=== PATIENT | female | born 1955 | race Caucasian/White ===

== ENCOUNTER 2018-01-02 00:31 | Outpatient (CLI) | payer MEDICARE, OTHER, SELFPAY ==
--- NOTE | 2018-01-02 09:10 | DI.COMBO_ITS ---
SYMPTOMS/DIAGNOSIS: F/U ABNORMAL MAMMO DIAGNOSTIC BILATERAL MAMMOGRAM AND RIGHT BREAST ULTRASOUND: Mammograms were interpreted according to the usual protocol including computer analysis with CAD system, tomosynthesis and C view imaging. Additional images are interpreted according to the usual protocol including tomosynthesis and 2D imaging. Comparison is made with mammograms from 2012 and 2017. The patient did not return for the six-month follow-up exam recommended on last year's study. Spot compression CC view of the subareolar region of the right breast and MLO spot compression view of the left breast were performed. No abnormality or change is seen in the left breast. No suspicious masses or suspicious calcifications are identified. In the right breast, there is again some prominent nodular tissue in the subareolar region seen on the CC view. Right breast ultrasound shows dense tissue in this area. No cyst or mass is identified. IMPRESSION: Category 1, negative mammogram and right breast ultrasound. Yearly screening mammography is recommended. SA ASSESSMENT OF FINDINGS: Negative. Category 1. Patient will receive a letter notifying them of these results. Bi-RADS category C. The breasts are heterogeneously dense, which may obscure small masses.
== END 2018-01-02 00:51 ==
PROVIDERS: PCP Physician Assistant Medical; Visit Provider Physician Assistant Medical
DX: Z12.31 Encounter for screening mammogram for malignant neoplasm of breast (principal); R92.8 Other abnormal and inconclusive findings on diagnostic imaging of breast; N60.81 Other benign mammary dysplasias of right breast
CPT/HCPCS: 76642; 77062; 77066; G0279

== ENCOUNTER 2018-03-15 01:42 | Outpatient (CLI) | payer MEDICARE, OTHER, SELFPAY ==
--- NOTE | 2018-03-15 14:01 | DI.RAD_ITS ---
SYMPTOMS/DIAGNOSIS: PRIMARY OSTEOARTHRITIS, BOTH KNEES, M17.0; LOW BACK AND HIP PAIN, M54.5 LEFT KNEE: A single AP standing view of the left knee was obtained. This is an incomplete series. There is mild narrowing and periarticular spurring in the medial femorotibial joint space, suggestive of osteoarthritis. No gross alignment abnormalities or soft tissue abnormalities are identified. IMPRESSION: Mild degenerative changes of the left knee. RIGHT KNEE: A single standing AP view of the right knee was requested and performed. There is moderately severe narrowing in the medial femorotibial joint space. Moderate-sized spurs are seen arising from the medial femorotibial joint space. The lateral joint space appears well maintained. There is normal alignment on the single AP view. The soft tissues are grossly unremarkable. IMPRESSION: Moderate degenerative changes of the right knee. LUMBAR SPINE: AP, lateral and bilateral oblique views of the lumbar spine. There are five lumbar-type vertebral bodies. There is a left convex curvature of the lumbar spine. No spondylolysis or spondylolisthesis is seen. There is mild narrowing of the L2-3, L3-4 and L4-L5 disc spaces. There are endplate osteophytes present throughout the lumbar spine. There are degenerative changes of the facets at multiple levels of the lumbar spine. No acute fracture or subluxations are present. IMPRESSION: Moderate degenerative changes seen in the lumbar spine. BILATERAL HIPS: In the left hip, the joint space is fairly well maintained with minimal subchondral sclerosis and acetabular spurring. The right hip shows mild joint space narrowing and periarticular spurring at the acetabulum. The sacroiliac joints and symphysis pubis are intact. The bones are normally mineralized. The soft tissues are unremarkable. IMPRESSION: Mild degenerative changes of the hips bilaterally.
== END 2018-03-15 02:02 ==
PROVIDERS: PCP Physician Assistant Medical; Visit Provider Internal Medicine Rheumatology
DX: M17.0 Bilateral primary osteoarthritis of knee (principal); M54.5 Low back pain; M51.36 Other intervertebral disc degeneration, lumbar region; M25.551 Pain in right hip; M25.552 Pain in left hip; M16.0 Bilateral primary osteoarthritis of hip
CPT/HCPCS: 73521; 72110; 73560

== ENCOUNTER 2018-04-06 06:11 | Day surgery (SDC) | payer MEDICARE, OTHER, SELFPAY ==
--- NOTE | 2018-04-05 18:23 | W.PIPPEYE ---
History of Present Illness Chief Complaint: Progressive decreased vision, right eye Narrative: The patient is a 62-year old lady with history of progressive decreased vision in both eyes at both distance and near. She feels like she is looking through a fog. She notes significant difficulty with glare from bright sunlight and headlights at night. On examination she was noted to have moderate bilateral cortical cataracts, right eye worse than left with visual acuity of 20/70 in the right eye. The option of cataract surgery was offered to the patient and she wished to proceed. NOTE: The Chief Complaint, HPI, Past Medical History, Past Surgical History, Family History, Social History, Medications, and complete Ophthalmic Exam with detailed Assessment and Plan have already been documented in the patient's outpatient ophthalmic record and are not covered again in detail here. [facility] Medical History Cortical cataract of right eye (Acute) Social History Smoking/Tobacco Use Status: Never Meds Home Medications Medication Instructions Recorded Confirmed Type azelastine 1 spray INTRANASAL DAILY 04/03/18 04/03/18 History gabapentin 600 mg PO QID 04/03/18 04/03/18 History hydrocodone-acetaminophen 1 tab PO Q6H 04/03/18 04/03/18 History lisinopril 5 mg PO DAILY 04/03/18 04/03/18 History meloxicam 15 mg PO DAILY 04/03/18 04/03/18 History Allergies Allergy/AdvReac Type Severity Reaction Status Date / Time Fish Containing Products AdvReac Severe vomiting Verified 04/03/18 14:03 Pork/Porcine Containing AdvReac Severe vomiting Verified 04/03/18 14:03 Products Exam OCULAR EXAM:: Most recent ocular examination reveals corrected visual acuity of 20/70 OD, 20/25 OS. Intraocular pressure is 15 OD, 16 OS. Extraocular motility is normal. Pupils equal, round, and reactive without afferent pupillary defect slit-lamp examination shows pupils dilating to 7 mm OU. 3+ inferior cortical cataract OD, 2+ inferior cortical cataract OS. Funduscopic examination shows disc cupping of 0.3 OU with good color. The optic nerves have good perfusion and normal color. The retinal vasculature is normal without significant tortuosity or abnormality. The maculas are normal in appearance with normal contour and foveal reflex appropriate for age. The peripheral retina and vitreous are normal. BRIGHTNESS ACUITY TESTING (BAT):: Brightness acuity testing off is 20/70. Low is 20/80. Medium is 20/100. High is 20/200. Assessment and Plan (1) Cortical cataract of right eye: Current visit: No Status: Acute Assessment: Visually significant cataract, right eye. Plan: Cataract extraction with intraocular lens implantation, right eye Note: NOTE:: The details of the planned surgery, including the risks, indications,limitations,expectations,outcome and possible complications were explained to the patient. The patient understands the complications including, but not limited to: infection, hemorrhage, posterior dislocation of the lens or nuclear fragments which may require the intervention of a vitreoretinal surgeon, possible loss of the eye, or from anesthetic complications. The patient has been made aware of the option of not having surgery, that vision following surgery may not be equal to that prior to surgery, and that the planned surgery may not achieve the intended results. Following this discussion, which the patient appeared to understand, the patient wishes to proceed with cataract surgery with lens implantation of the affected eye to improve and maximize vision.
--- NOTE | 2018-04-05 18:30 | PDOC.DSDIS_ITS ---
Discharge Plan Discharge Details Attending Provider: Tej De Guzman Primary Care Provider: Manan Arzate V Home Meds and New Rx's Prescriptions: No Action gabapentin 600 mg Tablet 600 mg PO QID RF: 0 meloxicam 15 mg Tablet 15 mg PO DAILY RF: 0 hydrocodone-acetaminophen 10-325 mg Tablet 1 tab PO Q6H RF: 0 lisinopril 5 mg Tablet 5 mg PO DAILY RF: 0 azelastine 137 mcg (0.1 %) Aerosol,[place] 1 spray INTRANASAL DAILY RF: 0 Discharge Instructions Stand Alone Forms: Post-op Topical Cataract, [place] (DSU)
--- NOTE | 2018-04-05 18:31 | ROE_ITS ---
Date of service: 04/06/18 Time of Service: 08:09 Operative Note PRE-OP DIAGNOSIS: Cataract, right eye, with poor red reflex PROCEDURE: Cataract extraction using phacoemulsification with intraocular lens implantation, right eye, using capsular staining with Vision Blue SURGEON: Tej De Guzman ANESTHESIA: MAC (with local sub-tenon's anesthetic injection) PATHOLOGY: none sent COMPLICATIONS: None Patient was transported to: same day Patient's condition: stable Implants: Óscar and Óscar / [employer] Tecnis [id number] Indications: Progressive visual loss due to cataract, right eye Procedure Description: CATARACT SURGERY OPERATIVE REPORT PREOPERATIVE DIAGNOSIS: 1. Dense cortical cataract, right eye 2. Poor red reflex secondary to #1 POSTOPERATIVE DIAGNOSIS: Same OPERATION: 1. Cataract extraction using phacoemulsification with posterior chamber intraocular lens implant, right eye. 2. Capsular staining with Vision Blue IOL: IOL Real Estate Utilization Officer/Model: Óscar & Óscar / DANNIE Tecnis [id number] IOL Power: + 18.50 diopters IOL Serial Number: [id number] Optic Diameter: 6.0mm Haptic/Overall Diameter: 13.0mm PHACO INFO: [employer] Vision System with OZil and Active Fluidics Cumulative Dispersed Energy (CDE): 6.41 seconds SURGEON: Tej De Guzman MD, NIKITA ANESTHESIA: Monitored Anesthesia Care (MAC), with local sub-tenon's anesthetic infiltration COMPLICATIONS: None SPECIMENS: None INDICATIONS FOR PROCEDURE: The patient is a 62-year-old lady who presented with complaints of progressive decreased vision in her right eye. She was noted to have a significant cortical cataract in the right eye with visual acuity of 20/70. The option of cataract surgery was offered to the patient and she wished to proceed. PROCEDURE: The correct surgical eye was identified and marked as the right eye and the pupil was dilated in the preoperative area using mydriatics, cycloplegics, and NSAIDS (except in aspirin allergic patients). The dilated pupil size was 7.5 mm. Oral sedation was administered in the form of an Imprimis MKO Melt (midazolam 3mg/ketamine 25mg/ondansetron 2mg). The patient was brought to the operating room where cardiopulmonary monitoring was instituted and surgical time-out was performed, confirming the correct operative eye and IOL power. Topical anesthesia was administered and ophthalmic povidone-iodine 5% was instilled into the conjunctival fornices. Lidocaine gel was applied to the cornea and the fabian-ocular area was prepped with Betadine 10% solution and kathy ped in the usual sterile fashion for intraocular surgery, including an aperture drape. A Tegaderm transparent film dressing was cut in half and used to cover the lashes and lid margins. Care was taken to sequester the lashes and lid margins under the Tegaderm dressing. A lid speculum was placed between the lids of the operative eye and the Tena-Dorothy operating microscope was maneuvered into position. Loco scissors were then used to make a conjunctival buttonhole approximately 6mm posterior to the limbus in the inferonasal quadrant. Blunt dissection was carried out to expose bare sclera, and a blunt-tipped sub-tenon?s anesthesia cannula was introduced and passed posteriorly along the globe where non- preserved plain lidocaine was injected into posterior sub-Tenon?s space. A sideport knife was used to make a paracentesis port at the 7:00 position. Air was injected into the anterior chamber, followed by Vision Blue, which was painted over the anterior capsule and then irrigated out with BSS. The anterior chamber was filled with Healon GV. A 2.4mm keratome knife was used to create a half-thickness groove at the limbus and then to construct a three-plane near- clear corneal tunnel extending 2.0mm into clear cornea at the 10:00 position. A flap was raised on the anterior capsule and capsulorhexis forceps were used to complete a continuous curvilinear capsulorhexis of 5.5 mm. Balanced salt solution was then used to perform cortical cleaving hydrodissection and nuclear hydrodelineation until the lens could be freely rotated within the capsular bag. The lens nucleus was then disassembled and removed within the capsular bag and iris plane using phacoemulsification. Residual cortical material was removed using the 45-degree angled silicone I/A tip with 0.3mm port. The posterior capsule was carefully polished to remove as much residual lens epithelial cells as safely possible. The capsular bag was then inflated and the anterior chamber deepened with viscoelastic. The lens implant described above was inserted into the capsular bag using the DANNIE [place] Injector. A Kuglen hook was used to dial the IOL into position. Residual viscoelastic was then removed first from posterior to the IOL, then from the anterior chamber using the I/A handpiece. The lens implant was noted to center nicely within the capsular bag. The incisions were stromally hydrated, and the anterior chamber was reformed using BSS. Then 0.4cc of moxifloxacin 1.5mg/ml were injected into the capsular bag and anterior chamber. The incisions were checked with a Weck spear and found to be secure. Several drops of ophthalmic povidone-iodine 5% were then applied to the eye followed by two drops of Imprimis combination moxifloxacin/dexamethasone solution. The drapes were removed and a clear plastic protective eye shield was placed over the eye. The patient was then returned to Same Day Surgery in stable condition.
[2018-04-06 06:41] VITALS: BP 144/87; PULSE 109; RESP 20; TEMP 36.6; O2SAT 99
[2018-04-06] MEDS: Tetracaine 0.5% 4 ML BTL OD ×4 (06:46→07:33)
[2018-04-06] MEDS: Tropicam./Phenyleph. (1/2.5%) 5 ML BTL OD ×3 (06:47→06:52)
[2018-04-06] MEDS: Lidocaine 2% Jelly 6 ML SYR (07:35)
[2018-04-06] MEDS: Balanced Salt Soln.-PLUS 500 ML BAG (07:47)
[2018-04-06] MEDS: Trypan Blue 0.06% 0.5 ML SYR (07:49)
[2018-04-06] MEDS: Lidocaine 1% Pres-Free 5 ML VIAL (07:58)
[2018-04-06] MEDS: Povidone-Iodine Ophth 30 ML BTL (08:01)
[2018-04-06 08:37] VITALS: BP 125/78; PULSE 96; RESP 18; O2SAT 98
== END 2018-04-06 08:45 | disposition home or self-care (01) ==
PROVIDERS: PCP Physician Assistant Medical; Visit Provider Ophthalmology
PROC: (CPT 66982; principal; 2018-04-06 07:30)
DX: H25.011 Cortical age-related cataract, right eye (principal); H35.89 Other specified retinal disorders; I10 Essential (primary) hypertension
CPT/HCPCS: 66982; V2632

== ENCOUNTER 2018-04-20 07:52 | Day surgery (SDC) | payer MEDICARE, OTHER, SELFPAY ==
--- NOTE | 2018-04-19 15:04 | POEE_ITS ---
History of Present Illness Chief Complaint: Progressive decreased vision, left eye Narrative: Patient is a 62-year-old lady with history of progressive decreased vision in both eyes at both distance and near. She had a significant difficulty with glare from bright headlights and felt like she was looking through a fog. She was noted to have significant bilateral nuclear cataracts, right eye worse than left. She underwent cataract surgery in the right eye on 04/06/2018. Postoperatively she has regained uncorrected vision of 20/40 in the right eye, correctable to 20/30. She now presents for cataract surgery in the left eye. NOTE: The Chief Complaint, HPI, Past Medical History, Past Surgical History, Fa kina History, Social History, Medications, and complete Ophthalmic Exam with detailed Assessment and Plan have already been documented in the patient's outpatient ophthalmic record and are not covered again in detail here. [facility] Medical History Cortical cataract of left eye (Acute) Cortical cataract of right eye (Resolved) Surgical History Status post cataract extraction and insertion of intraocular lens of right eye (Chronic 04/06/18) Social History Smoking and Tabacco status: Never Meds Home Medications Medication Instructions Recorded Confirmed Type azelastine 1 spray INTRANASAL DAILY 04/03/18 04/03/18 History gabapentin 600 mg PO QID 04/03/18 04/06/18 History hydrocodone-acetaminophen 1 tab PO Q6H 04/03/18 04/06/18 History lisinopril 5 mg PO DAILY 04/03/18 04/06/18 History meloxicam 15 mg PO DAILY 04/03/18 04/06/18 History Allergies Allergy/AdvReac Type Severity Reaction Status Date / Time Fish Containing Products AdvReac Severe vomiting Verified 04/06/18 06:38 Pork/Porcine Containing AdvReac Severe vomiting Verified 04/06/18 06:38 Products Exam OCULAR EXAM:: Most recent ocular examination reveals best corrected vision of 20/30 OD, 20/25 OS. Intraocular pressure is 15 OD, 16 OS. Extraocular motility is normal. Normal pupils. Slit-lamp examination is significant for pupils dilating to 7 mm OU. Well-positioned PCIOL OD with clear posterior capsule. 2+ inferior cortical cataract, left eye. Dilated funduscopic examination is significant for disc cupping of 0.3 OU with normal vessels, macula, peripheral retina and vitreous. BRIGHTNESS ACUITY TESTING (BAT):: Brightness acuity testing of the left eye off is 20/25. Low is 20/30. Medium is 20/50. Height is 20/60. Assessment and Plan (1) Cortical cataract of left eye: Current visit: No Status: Acute Assessment: Visually significant cataract, left eye. Plan: Cataract extraction with intraocular lens implantation, left eye Note: NOTE:: The details of the planned surgery, including the risks, indicati ons,limitations,expectations,outcome and possible complications were explained to the patient. The patient understands the complications including, but not limited to: infection, hemorrhage, posterior dislocation of the lens or nuclear fragments which may require the intervention of a vitreoretinal surgeon, possible loss of the eye, or from anesthetic complications. The patient has been made aware of the option of not having surgery, that vision following surgery may not be equal to that prior to surgery, and that the planned surgery may not achieve the intended results. Following this discussion, which the patient appeared to understand, the patient wishes to proceed with cataract surgery with lens implantation of the affected eye to improve and maximize vision.
--- NOTE | 2018-04-19 15:46 | W.PM.DSUDISC ---
Discharge Plan Discharge Details Attending Provider: eTj De Guzman Primary Care Provider: Manan Arzate V Home Meds and New Rx's Prescriptions: No Action gabapentin 600 mg Tablet 600 mg PO QID RF: 0 meloxicam 15 mg Tablet 15 mg PO DAILY RF: 0 hydrocodone-acetaminophen 10-325 mg Tablet 1 tab PO Q6H RF: 0 lisinopril 5 mg Tablet 5 mg PO DAILY RF: 0 azelastine 137 mcg (0.1 %) Aerosol,[place] 1 spray INTRANASAL DAILY RF: 0 Discharge Instructions Stand Alone Forms: Post-op Topical Cataract, [place] (DSU) DS: Diagnosis Discharge Diagnosis (1) Status post cataract extraction and insertion of intraocular lens of left eye: Status: Resolved
--- NOTE | 2018-04-19 15:47 | ROE_ITS ---
Date of service: 04/20/18 Time of Service: 10:29 Operative Note PRE-OP DIAGNOSIS: Cataract, left eye POST-OP DIAGNOSIS: same PROCEDURE: Cataract extraction using phacoemulsification with intraocular lens implant, left eye SURGEON: Tej De Guzman ANESTHESIA: MAC and local (sub-tenon's anesthetic infiltration) PATHOLOGY: none sent COMPLICATIONS: None Patient was transported to: same day Patient's condition: stable Implants: Óscar and Óscar Vision / [employer] Tecnis [id number] Indications: Progressive decreased vision due to cataract, left eye Procedure Description: CATARACT SURGERY OPERATIVE REPORT PREOPERATIVE DIAGNOSIS: [] POSTOPERATIVE DIAGNOSIS: Same OPERATION: Cataract extraction using phacoemulsification with posterior chamber intraocular lens implant, left eye. IOL: IOL Store Gift Wrap Associate/Model: [employer] Vision / DANNIE Tecnis [id number] IOL Power: +[] diopters IOL Serial Number: [] Optic Diameter: 6.0mm Haptic/Overall Diameter: 13.0mm PHACO INFO: [employer] Vision System with OZil and Active Fluidics Cumulative Dispersed Energy (CDE): [] seconds SURGEON: Tej De Guzman MD, NIKITA ANESTHESIA: Monitored Anesthesia Care (MAC), with local sub-tenon's anesthetic infiltration COMPLICATIONS: None SPECIMENS: None INDICATIONS FOR PROCEDURE: The patient is a 62-year-old lady with history of symptomatic cortical cataracts in both eyes. She has already undergone cataract surgery in her right eye and is doing well postoperatively. She now presents for cataract surgery in her left eye. PROCEDURE: The correct surgical eye was identified and marked as the left eye and the pupil was dilated in the preoperative area using mydriatics and cycloplegics. The dilated pupil size was [] mm. Oral sedation was administered in the form of an Imprimis MKO Melt (midazolam 3mg/ketamine 25mg/ondansetron 2mg). The patient was brought to the operating room where cardiopulmonary monitoring was instituted and surgical time-out was performed, confirming the correct operative eye and IOL power. Topical anesthesia was administered and ophthalmic povidone-iodine 5% was instilled into the conjunctival fornices. Lidocaine gel was applied to the cornea and the fabian-ocular area was prepped with Betadine 10% solution and draped in the usual sterile fashion for intraocular surgery, including an aperture drape. A Tegaderm transparent film dressing was cut in half and used to cover the lashes and lid margins. Care was taken to sequester the lashes and lid margins under the Tegaderm dressing. A lid speculum was placed between the lids of the operative eye and the Tena-Dorothy operating microscope was maneuvered into position. Loco scissors were then used to make a conjunctival buttonhole approximately 6mm posterior to the limbus in the inferonasal quadrant. Blunt dissection was carried out to expose bare sclera, and a blunt-tipped sub-tenon?s anesthesia cannula was introduced and passed posteriorly along the globe where non- preserved plain lidocaine was injected into posterior sub-Tenon?s space. A sideport knife was used to make a paracentesis port superior/superiortemporal, and the anterior chamber was filled with Healon GV. A 2.4mm keratome knife was used to create a half-thickness groove at the limbus and then to construct a three-plane near-clear corneal tunnel extending 2.0mm into clear cornea in the temporal position. . A flap was raised on the anterior capsule and capsulorhexis forceps were used to complete a continuous curvilinear capsulorhexis of []mm. Balanced salt solution was then used to perform cortical cleaving hydrodissection and nuclear hydrodelineation until the lens could be freely rotated within the capsular bag. The lens nucleus was then disassembled and removed within the capsular bag and iris plane using phacoemulsification. Residual cortical material was removed using the 45-degree angled silicone I/A tip with 0.3mm port. The posterior capsule was carefully polished to remove as much residual lens epithelial cells as safely possible. The capsular bag was then inflated and the anterior chamber deepened with viscoelastic. The lens implant described above was inserted into the capsular bag using the DANNIE [place] Injector. A Kuglen hook was used to dial the IOL into position. Residual viscoelastic was then removed first from posterior to the IOL, then from the anterior chamber using the I/A handpiece. The lens implant was noted to center nicely within the capsular bag. The incisions were stromally hydrated, and the anterior chamber was reformed using BSS. Then 0.4cc of moxifloxacin 1.5mg/ml were injected into the capsular bag and anterior chamber. The incisions were checked with a Weck spear and found to be secure. Several drops of ophthalmic povidone-iodine 5% were then applied to the eye followed by two drops of Imprimis combination moxifloxacin/dexamethasone solution. The drapes were removed and a clear plastic protective eye shield was placed over the eye. The patient was then returned to Same Day Surgery in stable condition.
[2018-04-20] MEDS: Tropicam./Phenyleph. (1/2.5%) 5 ML BTL OS ×3 (08:27→08:39)
[2018-04-20] MEDS: Tetracaine 0.5% 4 ML BTL OS ×4 (08:27→09:56)
[2018-04-20 08:28] VITALS: BP 138/88; PULSE 79; RESP 16; TEMP 37; O2SAT 97
[2018-04-20] MEDS: Povidone-Iodine Ophth 30 ML BTL (09:57)
[2018-04-20] MEDS: Lidocaine 2% Jelly 6 ML SYR (09:58)
[2018-04-20] MEDS: Balanced Salt Soln.-PLUS 500 ML BAG (10:00)
[2018-04-20] MEDS: Lidocaine 1% Pres-Free 5 ML VIAL (10:01)
[2018-04-20] MEDS: Trypan Blue 0.06% 0.5 ML SYR (10:04)
--- NOTE | 2018-04-20 10:36 | ROE_ITS ---
Date of service: 04/20/18 Time of Service: 10:34 Operative Note PRE-OP DIAGNOSIS: Cataract, left eye, with poor red reflex POST-OP DIAGNOSIS: same PROCEDURE: Cataract extraction using phacoemulsification with intraocular lens implant, left eye, using capsular staining with Vision Blue SURGEON: Tej De Guzman ANESTHESIA: MAC (with local sub-tenon's anesthetic injection) COMPLICATIONS: None Patient was transported to: same day Patient's condition: stable Implants: Óscar and Óscar / [employer] Tecnis [id number] Indications: Progressive decreased vision due to cataract, left eye, with poor red reflex Procedure Description: CATARACT SURGERY OPERATIVE REPORT PREOPERATIVE DIAGNOSIS: 1. Dense cortical cataract, left eye 2. Poor red reflex secondary to #1 POSTOPERATIVE DIAGNOSIS: Same OPERATION: 1. Cataract extraction using phacoemulsification with posterior chamber intraocular lens implant, left eye. 2. Capsular staining with Vision Blue IOL: IOL Gas Line Installer Supervisor/Model: Óscar & Óscar / DANNIE Tecnis [id number] IOL Power: + 19.5 diopters IOL Serial Number: [id number] Optic Diameter: 6.0 mm Haptic/Overall Diameter: 13.0 mm PHACO INFO: Yannick Adapta Medicalurion Vision System with OZil and Active Fluidics Cumulative Dispersed Energy (CDE): 3.60 seconds SURGEON: Tej De Guzman MD, NIKITA ANESTHESIA: Monitored A [facility] Care (MAC), with local sub-tenon's anesthetic infiltration COMPLICATIONS: None SPECIMENS: None INDICATIONS FOR PROCEDURE: The patient is a 62-year-old lady with history of dense bilateral cortical cataracts, right eye greater than left. She has already undergone cataract surgery in her right eye on 04/06/2018 and is doing well postoperatively. She now presents for cataract surgery in the left eye. PROCEDURE: The correct surgical eye was identified and marked as the left eye and the pupil was dilated in the preoperative area using mydriatics and cycloplegics. The dilated pupil size was 7.0 mm. Oral sedation was administered in the form of an Imprimis MKO Melt (midazolam 3mg/ketamine 25mg/ondansetron 2mg). The patient was brought to the operating room where cardiopulmonary monitoring was instituted and surgical time-out was performed, confirming the correct operative eye and IOL power. Topical anesthesia was administered and ophthalmic povidone-iodine 5% was instilled into the conjunctival fornices. Lidocaine gel was applied to the cornea and the fabian-ocular area was prepped with Betadine 10% solution and draped in the usual sterile fashion for intraocular surgery, including an aperture drape. A Tegaderm transparent film dressing was cut in half and used to cover the lashes and lid margins. Care was taken to sequester the lashes and lid margins under the Tegaderm dressing. A lid speculum was placed between the lids of the operative eye and the Tena-Dorothy operating microscope was maneuvered into position. Loco scissors were then used to make a conjunctival buttonhole approximately 6mm posterior to the limbus in the inferonasal quadrant. Blunt dissection was carried out to expose bare sclera, and a blunt-tipped sub-tenon?s anesthesia cannula was introduced and passed posteriorly along the globe where non- preserved plain lidocaine was injected into posterior sub-Tenon?s space. A sideport knife was used to make a paracentesis port at the 12:00 position. Air was injected into the anterior chamber, followed by Vision Blue, which was painted over the anterior capsule and then irrigated out using BSS. The a nterior chamber was filled with Healon GV. A 2.4mm keratome knife was used to create a half-thickness groove at the limbus and then to construct a three-plane near-clear corneal tunnel extending 2.0mm into clear cornea at the 3:00 position. A flap was raised on the anterior capsule and capsulorhexis forceps were used to complete a continuous curvilinear capsulorhexis of 5.0 mm. Balanced salt solution was then used to perform cortical cleaving hydrodissection and nuclear hydrodelineation until the lens could be freely rotated within the capsular bag. The lens nucleus was then disassembled and removed within the capsular bag and iris plane using phacoemulsification. Residual cortical material was removed using the 45-degree angled silicone I/A tip with 0.3mm port. The posterior capsule was carefully polished to remove as much residual lens epithelial cells as safely possible. The capsular bag was then inflated and the anterior chamber deepened with viscoelastic. The lens implant described above was inserted into the capsular bag using the DANNIE [place] Injector. A Kuglen hook was used to dial the IOL into position. Residual viscoelastic was then removed first from posterior to the IOL, then from the anterior chamber using the I/A handpiece. The lens implant was noted to center nicely within the capsular bag. The incisions were stromally hydrated, and the anterior chamber was reformed using BSS. Then 0.4cc of moxifloxacin 1.5mg/ml were injected into the capsular bag and anterior chamber. The incisions were checked with a Weck spear and found to be secure. Several drops of ophthalmic povidone-iodine 5% were then applied to the eye followed by two drops of Imprimis combination moxifloxacin/dexamethasone solution. The drapes were removed and a clear plastic protective eye shield was placed over the eye. The patient was then returned to Same Day Surgery in stable condition.
[2018-04-20 10:56] VITALS: BP 133/77; PULSE 96; RESP 20; TEMP 36.8; O2SAT 94
[2018-04-20 11:28] VITALS: BP 112/67; PULSE 85; RESP 18; O2SAT 94
== END 2018-04-20 11:56 | disposition home or self-care (01) ==
LOC: SUR 07:53
PROVIDERS: PCP Physician Assistant Medical; Visit Provider Ophthalmology
PROC: (CPT 66982; principal; 2018-04-20 10:30)
DX: H25.012 Cortical age-related cataract, left eye (principal); H35.89 Other specified retinal disorders; Z98.41 Cataract extraction status, right eye; Z96.1 Presence of intraocular lens; I10 Essential (primary) hypertension
CPT/HCPCS: 66982; V2632

== ENCOUNTER 2020-04-30 16:52 | Outpatient (REF) | payer MEDICARE, OTHER, SELFPAY ==
[2020-05-07 08:56] LABS: Codeine Negative ng/mL (Cutoff: 25); Dihydrocodeine 4908 ng/mL (Cutoff: 25); Hydrocodone 11962 ng/mL (Cutoff: 25); Hydromorphone 3539 ng/mL (Cutoff: 25); Morphine Negative ng/mL (Cutoff: 25); Naloxone Negative ng/mL (Cutoff: 25); Norhydrocodone 21815 ng/mL (Cutoff: 25); Noroxycodone Negative ng/mL (Cutoff: 25); Noroxymorphone Negative ng/mL (Cutoff: 25); Opiates Interpretation Positive.
== END 2020-04-30 16:53 | disposition home or self-care (01) ==
LOC: NCHCN 16:52
PROVIDERS: PCP Physician Assistant Medical; Visit Provider Physician Assistant
DX: G89.29 Other chronic pain (principal); Z79.891 Long term (current) use of opiate analgesic
CPT/HCPCS: 80361; 80362

== ENCOUNTER 2020-10-21 20:49 | Outpatient (REF) | payer MEDICARE, SELFPAY ==
[2020-10-27 16:23] LABS: Codeine Negative ng/mL (Cutoff: 25); Dihydrocodeine 5231 ng/mL (Cutoff: 25); Hydrocodone 13180 ng/mL (Cutoff: 25); Hydromorphone 10632 ng/mL (Cutoff: 25); Morphine Negative ng/mL (Cutoff: 25); Naloxone Negative ng/mL (Cutoff: 25); Noroxycodone Negative ng/mL (Cutoff: 25); Noroxymorphone 38 ng/mL (Cutoff: 25); Opiates Interpretation Positive.
== END 2020-10-21 20:50 | disposition home or self-care (01) ==
LOC: NCHCN 20:49
PROVIDERS: PCP Physician Assistant Medical; Visit Provider Nurse Practitioner Family
DX: G89.29 Other chronic pain (principal); Z79.891 Long term (current) use of opiate analgesic
CPT/HCPCS: 80361; 80362; 80365

== ENCOUNTER 2020-11-06 09:54 | Emergency (ER) | payer MEDICARE, OTHER, SELFPAY ==
[2020-11-06 09:57] VITALS: BP 167/81; PULSE 129; RESP 20; TEMP 36.4; O2SAT 96
--- OUTSIDE RECORDS SUMMARY | 2020-11-06 10:02 | XMS_ITS ---
:1955 Author Care Team Providers Name Role Phone Provider Primary Care Provider Unavailable Allergies Code Code System Name Reaction Severity Status Onset Seasonale (91) ? ? Active ? NKDA ? Notes: cannot tolerate fish, po rk, beef per pt packet Medications Name Status Start Date Stop Date ? ? gabapentin 600 mg tablet Active ? Not mera ilable hydrocodone 10 mg-acetaminophen 325 mg Active ? Not available tablet lisinopril 5 mg tablet Active ? Not avail able meloxicam 15 mg tablet Completed ? 0 Take 1 tablet every day by oral route. Narcan 4 mg/actuation nasal spray Active ? Not available Take 1 spray as needed by nasal route. wnbrxduw-yknarmdpt-lvaaefvig 3.5 Completed ? 08/15/2019 mg/mL-10,000 unit/mL-1 % ear solution Problems Name Status Onset Date Source ? Osteoarthritis of Knee Active 08/15/2019 ? Knee Pain Active 08/15/2019 ? Degeneration of Intervertebral Disc Active 08/15/2019 ? Fibromyalgia Active 08/15/2019 ? Medication Monitoring Active 08/15/2019 ? Adult Health Examination Active 11/07/2019 ? Chronic Pain Active ? ? Hypertensive Disorder Active ? ? Procedures Date Name Performed by ? 11/07/2019 MAMMO, Screening, Tomosynthesis, [facility] Radiology (Internal) Bilateral [address] [place] [address] (Work Place) Results Lab Results Date Name Specimen Result Interpretation Description Value Range Status Address ? 08/15/2019 CBC W/ Auto BLD ? Wbc 6.9 10*3/uL 5.0-10.0 F inal North Diff 10*3/uL [facility] (Internal) : [address] ? ? BLD ? Rbc 4.86 10*6/uL 4.10-5.30 Final N orth 10*6/uL [facility] (Internal) : [address], [place] ? ? BLD ? Hgb 15.6 g/dL 12.0-16.0 Final Nort h g/dL [facility] (Internal) : [address] ? ? BLD ? Hct 46.2 % 37.0-47.0 Final [facility] (Internal) : [address] ? ? BLD ? Mcv 95.1 fL 80.0-96.0 Final [facility] (Internal) : [address] ? ? BLD High Mch 32.1 pg 26.0-32.0 Final [facility] (Internal) : [address] ? ? BLD ? Mchc 33.8 g/dL 31.0-35.0 Final Nort h g/dL [facility] (Internal) : [address] ? ? BLD ? Rdw 11.9 % 11.5-14.5 Final [facility] (Internal) : [address] ? ? BLD ? Plt 382 10*3/uL 130-450 Final Nort h 10*3/uL [facility] (Internal) : [address] ? ? BLD ? Anc 4.95 10*3/uL ? Final Nort h [facility] (Internal) : [address] ? ? BLD High Nlr 3.37 0.00-3.20 Final [facility] (Internal) : [address] ? ? BLD ? Neutro 71.9 % 40.0-75.0 Final [facility] (Internal) : [address] ? ? BLD ? Lymph 21.3 % 20.0-50.0 Final [facility] (Internal) : [address] ? ? BLD ? [place] 5.7 % 2.0-10.0 Final [facility] (Internal) : [address] ? ? BLD Low Eos 0.4 % 1.0-6.0 % Final [facility] (Internal) : [address] ? ? BLD ? Baso 0.6 % 0.0-1.0 % Final [facility] (Internal) : [address] t ? ? BLD ? Ig 0.1 % 0.0-0.9 % Final [facility] (Internal) : [address] t 08/15/2019 CMP, Serum or S High g/r 144 mg/dL 74-106 Fin al North Plasma mg/dL [facility] (Internal) : [address] t ? ? S ? Bun 14 mg/dL 7-17 Final North mg/dL [facility] (Internal) : [address] t ? ? S ? Crea 0.90 mg/dL 0.52-1.04 Final Nor th mg/dL [facility] (Internal) : [address] t ? ? S ? Ca 9.4 mg/dL 8.4-10.2 Final North mg/dL [facility] (Internal) : [address] t ? ? S ? Na 138 mmol/L 137-145 Final North mmol/L [facility] (Internal) : [address] ? ? S Low K 3.4 mmol/L 3.5-5.1 Final North mmol/L [facility] (Internal) : [address] t ? ? S ? Cl 99 mmol/L 98-107 Final North mmol/L [facility] (Internal) : [address] ? ? S ? Tco2 27.0 mmol/L 22.0-30.0 Final No rth mmol/L [facility] (Internal) : [address] t ? ? S ? Tp 7.7 g/dL 6.3-8.2 Final [facility] g/dL [facility] ([facility]) : [address] ? ? S ? Alb 4.3 g/dL 3.5-5.0 Final North g/dL [facility] (Internal) : [address] ? ? S ? Tbil 1.1 mg/dL 0.2-1.3 Final North mg/dL [facility] (Internal) : [address] ? ? S ? Alp 89 U/L 38-126 Final [facility] U/L [facility] ([facility] : [address] ? ? S ? Alt (Sgpt) <10 U/L 9-52 U/L Final No rth [facility] (Internal[facility] : [address] ? ? S High Ast (Sgot) 40 U/L 14-36 U/L Final No rth [facility] ([facility]) : [address] 08/15/2019 TSH, Serum or S ? Tsh 1.82 0.47-4.68 Fin al [facility] Plasma u[IU]/mL u[IU]/mL [facility] (Internal[facility] : [address] 08/15/2019 Drug Screen, UR ? Thc negative neg (50 Nerissa l [facility] Urine NG/mL NG/mL) [facility] NG/mL [facility] (Internal) : [address] t ? ? UR ? Pcp negative neg (25 Final [facility] NG/mL) [facility]) : [address] ? ? UR ? Rneetta negative neg (150 Final [facility] NG/mL) [facility]) : [address] t ? ? UR ? Met negative neg (500 Final [facility] NG/mL) [facility] : [address] t ? ? UR ? Opi negative neg (100 Final [facility] NG/mL) [facility] : [address] t ? ? UR ? Amp negative neg (500 Final [facility] NG/mL) [facility] ([facility] : [address] t ? ? UR ? Bzo negative neg (150 Final [facility] NG/mL) [facility] ([facility]) : [address] t ? ? UR ? Tca negative neg (300 Final [facility] NG/mL) [facility] : [address] ? ? UR ? Mtd negative neg (200 Final [facility] NG/mL) [facility] (Internal[facility] : [address] ? ? UR ? Bar negative neg (200 Final [facility] NG/mL) [facility] (Internal) : [address] ? ? UR ? Oxy negative neg (100 Final [facility] NG/mL) [facility] (Internal) : [address] ? ? UR ? Ppx negative neg (300 Final [facility] NG/mL) [facility] (Internal) : [address] ? ? UR ? Bup negative neg (10 Final North NG/mL) [facility] (Internal) : [address] 08/15/2019 ESR BLD ? Esr 8 mm/h 0-30 mm/h Final Nor th (Erythrocyte Coun try [facility] Lab Rate), Blood (Int ernal): [address] ? Venipuncture ? Location Left ? ? P _nc Primary Antecubital [place] [address], [place] ? ? ? Needle 21g ? ? P_nc Prim maine Vacutainer Care [place] [address], [place] ? ? ? Number of 1 ? ? P_nc P rimary Attempts Care [place]: [address], [place] ? ? ? Successful Yes ? ? P_nc Primary Care [place] [address], [place] ? ? ? Dressing Pressure ? ? P_nc Primary Band-aid Care Applied [place] [address], [place] ? ? ? Initials rs ? ? P_nc Pr imary Care [place]: [address], [place] Past Encounters 11/07/2019 Degeneration of Intervertebral Disc; Med ication Monitoring; Adult Health Examination; Screening Colonoscopy Arsen Doherty MD: [place] [address], Ph. 08/15/2019 Degeneration of Intervertebral Disc; Fib romyalgia; Medication Monitoring; Osteoarthritis of Knee; Hypertensive Disorder Arsen Doherty MD: [place] [address], Ph. Social History Tobacco Smoking Status Never Smoker Vaccine List Vaccine Type influenza, injectable, quadrivalent 02/06/2019 Tdap 12/19/2016 zoster live 12/19/2016 zoster recombinant 01/16/2018 10/18/2018 Plan of Care Reminders Provider Appointments None ? ? recorded. Lab None ? ? recorded. Referral None ? ? recorded. Procedures None ? ? recorded. Surgeries None ? ? recorded. Imaging None ? ? recorded. Vitals 11/07/2019 09:00AM Opioid Management 20 Height Weight BMI Blood Pressure 165.1 cm 72.57 kg 26.6 kg/m2 128/78 mm[Hg] 08/15/2019 02:00PM New Patient 40 Height Weight BMI Blood Pressure 165.1 cm 73.26 kg 26.9 kg/m2 134/80 mm[Hg]
[2020-11-06 10:18] LABS: Bilirubin Negative (Negative); Blood Negative (Negative); Clarity Clear (Clear); Glucose Negative (Negative); Ketones Negative (Negative); Leukocyte Esterase Negative (Negative); Nitrite Negative (Negative)
--- NOTE | 2020-11-06 10:25 | W.ED.GENAD ---
Discharge Plan Disposition Patient Disposition: HOME Condition: Stable Discharge Details Clinical Impression: H/O pelvic mass, Hydronephrosis, Acute urinary retention Primary Care Provider: Manan Arzate V ED Provider: Vannessa Cano Home Meds and New Rx's Prescriptions: New cephalexin 500 mg tablet 500 mg PO BID 7 Days Qty: 14 RF: 0 oxycodone 5 mg capsule 5 mg PO Q8H PRNQty: 10 RF: 0 ondansetron HCl [Zofran] 4 mg tablet 4 mg PO Q8H PRNQty: 10 RF: 0 potassium chloride 20 mEq tablet extended release 20 meq PO DAILY Qty: 7 RF: 0 Continued gabapentin 600 mg Tablet 600 mg PO QID RF: 0 meloxicam 15 mg Tablet 15 mg PO DAILY RF: 0 lisinopril 5 mg Tablet 5 mg PO DAILY RF: 0 azelastine 137 mcg (0.1 %) Aerosol,Art 1 spray INTRANASAL DAILY RF: 0 duloxetine 30 mg capsule,delayed release(DR/EC) 30 mg PO DAILY RF: 0 Discharge Instructions Instructions: Hypokalemia (ED), Puga Catheter Placement and Care (ED), Acute Urinary Retention in Women (ED), How to Change a Catheter Drainage Bag (DC) Additional Instructions: I am treating empirically for urinary tract infection with Keflex Take Tylenol as needed for pain, 650 mg every 4 hours I have given you a prescription for oxycodone, this medication is addictive, use this only for pain uncontrolled with the Tylenol keep the puga in place, use a leg bag during the day and the larger bag on the bed at night take potassium as prescribed zofrran as needed for nausea and vomiting Aletha Keating MD (CALL ON MONDAY) [employer] operator in [place], [place] COVID-19 info: [facility] Address: [address] [facility] [place] [address] Medical Decision Making Patient has left-sided hydronephrosis with a large pelvic mass This was discussed with radiology Dr. Vaughan Patient initially had bladder scan performed that showed greater than 900 cc of urine, Puga catheter was PLACED by the nurse at this time Recommendation was to order pelvic ultrasound which also displays a large pelvic mass Case discussed with Dr. Kwan, [facility] and she agrees with Puga catheterization, patient is resting comfortably in room although she is quite anxious Initially heart rate 129, repeat heart rate 110, patient is tearful with the She states that she typically does have an elevated pulse She denies any palpitation, chest pain, shortness of breath She has some intermittent nausea, she is given antiemetics for home she was otherwise discharged home, she was offered admission for pain control and patient has declined Puga catheter was placed and sent home with a leg bag, instructions provided Dr. 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 Patient made aware that she may return anytime should she need She is given a small amount of opiate analgesia, risk of addiction discussed She has good output through her Puga catheter She is discharged home in the care of her She is also given a prescription for potassium, mild hypokalemia, 3.3 No vomiting I patient have dysuria and the hydronephrosis, patient is at risk for urinary tract infection, pending culture I also discussed with Kaitlin nurse on-call for patient's primary care physician, Alem And she will let patient's PCP know regarding plan Case discussed with Thalia and referral placed to Dr. Keating at [facility] Medical Records Medical records reviewed: Yes I reviewed the patient's medical records. Lab Data Lab results reviewed: Yes I reviewed the patient's lab results. HPI General Mode of arrival: ambulatory. Date/Time Provider Initiated Documentation: 11/06/20 09:59. Limitations to Documentation: no limitations. Information obtained by: patient. HPI Narrative: This 65-year-old female presents with acute abdominal pain that started at approximately 1:00 this morning. Is nauseous without vomiting. Denies any diarrhea. States she has burning with urination. Denies any fever or chills. Denies any chest pain or shortness of breath. Denies dizziness or weakness. Denies any fever. States she had a similar episode previously and was diagnosed with a urinary tract infection, this was approximately 15 to 20 years ago. Denies history of ureterolithiasis. Is on a medication, Cymbalta. No longer takes opiate analgesia. Denies any hematuria. Related Data Home Medications Medication Instructions Recorded Confirmed azelastine 1 spray INTRANASAL DAILY 04/03/18 04/20/18 gabapentin 600 mg PO QID 04/03/18 11/06/20 lisinopril 5 mg PO DAILY 04/03/18 11/06/20 meloxicam 15 mg PO DAILY 04/03/18 11/06/20 cephalexin 500 mg PO BID 7 Days #14 tab 11/06/20 duloxetine 30 mg PO DAILY 11/06/20 11/06/20 ondansetron HCl [Zofran] 4 mg PO Q8H PRN #10 tab 11/06/20 oxycodone 5 mg PO Q8H PRN #10 cap 11/06/20 potassium chloride 20 meq PO DAILY #7 tab 11/06/20 Previous Rx's Medication Instructions Recorded cephalexin 500 mg PO BID 7 Days #14 tab 11/06/20 ondansetron HCl [Zofran] 4 mg PO Q8H PRN #10 tab 11/06/20 oxycodone 5 mg PO Q8H PRN #10 cap 11/06/20 potassium chloride 20 meq PO DAILY #7 tab 11/06/20 Allergies Allergy/AdvReac Type Severity Reaction Status Date / Time Fish Containing Products AdvReac Severe vomiting Verified 04/20/18 08:24 Pork/Porcine Containing AdvReac Severe vomiting Verified 04/20/18 08:24 Products General Stated Complaint: Urinary GUILLERMINA: 3 Review of Systems All systems reviewed & are unremarkable except as noted in HPI and below PFSH Medical History (Updated 11/06/20 @ 14:07 by BAILEY Quintanilla) Cortical cataract of left eye Cortical cataract of right eye Surgical History (Updated 04/20/18 @ 10:29 by Tej De Guzman MD) Status post cataract extraction and insertion of intraocular lens of left eye Status post cataract extraction and insertion of intraocular lens of right eye (04/06/18) Social History Smoking/Tobacco Use Status: Never Smoking risk assessment performed?: Yes Drug use: Never Exam Const General: cooperative Orientation: alert and oriented x3 Eyes Sclera: sclerae normal Chest Chest: normal inspection of the chest Resp Effort & Inspection: normal respiratory effort Auscultation: clear to auscultation bilaterally Cardio Rate: regular rate GI Other: Suprapubic tenderness Back/Spine/Pelvis Other: No CVA tenderness on exam Skin General skin exam: no rashes or lesions noted Neuro General: patient alert and patient oriented x3 Extrem Other: No peripheral edema Psych Appearance: grossly normal Course Vital Signs Vital signs: Vital Signs Temperature 36.4 C L 11/06/20 09:57 Pulse 129 H 11/06/20 09:57 Respiratory Rate 20 11/06/20 09:57 Blood Pressure 167/81 H 11/06/20 09:57 Pulse Oximetry 96 11/06/20 09:57 Temperature 36.4 C L 11/06/20 09:57 Temperature Source Skin 11/06/20 09:57 Pulse 129 H 11/06/20 09:57 Respiratory Rate 20 11/06/20 09:57 Respiratory Effort Non-Labored 11/06/20 10:03 Blood Pressure 167/81 H 11/06/20 09:57 Blood Pressure Position Sitting 11/06/20 09:57 Pulse Oximetry 96 11/06/20 09:57 Oxygen Delivery Method Room Air 11/06/20 09:57 Oxygen Flow Rate 0 11/06/20 09:57
[2020-11-06 10:31] LABS: Abs Immature Grans 0.03 10^3/uL (0.0-0.06); Absolute Basophil Count 0.03 10^3/uL (0.0-0.2); Absolute Eosinophil Count 0.01 10^3/uL (0.0-0.7); Absolute Lymphocyte Count 0.86 10^3/uL (1.2-3.4); Absolute Monocyte Count 0.51 10^3/uL (0.1-0.8); Absolute Neutrophil Count 8.69 10^3/uL (1.2-6.7); Basophils % 0.3; Eosinophils % 0.1; HCT 42.3 % (36.0-46.0); HGB 14.3 g/dL (11.2-15.7); Immature Grans % 0.3; Lymphocytes % 8.5; MCH 31.7 pg (27.0-33.0); MCHC 33.8 % (32.0-36.0); MCV 93.8 fL (80-95); MPV 9.6 fL (8.0-11.0); Neutrophils % 85.8; Nucleated RBC 0 %; Platelet Count 369 10^3/uL (130-400); RBC 4.51 10^6/uL (3.93-5.22); RDW 11.9 % (11.7-14.6); RDW-SD 40.8 fL; WBC 10.13 10^3/uL (4.4-10.8)
[2020-11-06] MEDS: Ondansetron 4 MG/2 ML VIAL IVP ×2 (10:33→13:37)
[2020-11-06] MEDS: fentaNYL 100 MCG/2 ML VIAL 50 MCG IVP (10:33)
--- NOTE | 2020-11-06 10:45 | DI.CT_ITS ---
Exam(s) CT ABDOMEN PELVIS W EXAM: CT ABDOMEN PELVIS W INDICATION: lower abdominal pain, urinary retention. COMPARISON: No exams were available for comparison TECHNIQUE: FINDINGS: CT examination of the abdomen and pelvis was performed with a bolus infusion of 100 cc of Omnipaque 3 50. Images obtained through the lung bases are unremarkable. The liver is unremarkable in appearance. Gallbladder and bile ducts are CT normal. Pancreas appears normal. Spleen is unremarkable in appearance. Adrenals appear normal. Right kidney is unremarkable appearance and there is no evidence right nephrolithiasis, hydronephrosi s, or ureterolithiasis. Left kidney shows [id number] hydronephrosis. No ureteral or intrarenal calcification identifie d. The distal left ureter appears compressed by a large pelvic mass, see discussion below. Abdominal aorta is of normal diameter and no major vascular abnormality is seen. No abdominal wall hernia. No abdominal or pelvic adenopathy. There is a pelvic mass which is predominantly of low attenuation, presumably cystic, with multiple ar eas of wall thickening and mural nodularity. Pelvic mass lies posterior to the collapsed urinary dave dder which contains a Nunez catheter. Mass may arise either from uterus or ovary, the ovaries are no t seen separate from the uterus. Uterine calcifications are noted at the fundus consistent with uter ine fibroid. Appendix is normal. No evidence of diverticulitis or bowel obstruction. IMPRESSION: Large predominantly cystic pelvic mass with significant solid components. 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 Additional evaluation with pelvic ultrasound recommended. RADIATION DOSE DELIVERED: 870.89mGy.cm Total DLP 870.89mGy.cm Total DLP 17.41mGy CTDIvol RADIATION OPTIMIZATION: All CT scans at this facility use at least one of these dose optimization te chniques: automated exposure control; mA and/or kV adjustment per patient size (includes targeted exa ms where dose is matched to clinical indication); or iterative reconstruction.
[2020-11-06 10:53] LABS: ALT 14 U/L (14-59); AST 13 U/L (15-37); Albumin 3.9 g/dL (3.4-5.0); Alkaline Phosphatase 97 U/L (46-116); Anion Gap 7.8 mmol/L (3-11); BUN 9 mg/dL (7-18); Bilirubin, Total 0.8 mg/dL (0.2-1.0); CO2 29.2 mmol/L (21.0-32.0); Calcium 9.1 mg/dL (8.5-10.1); Chloride 100 mmol/L (98-107); Estimated GFR 55.64 (mL/min/1.73m2); Glucose 147 mg/dL (74-106); Lipase 92 U/L (73-393); Potassium 3.3 mmol/L (3.5-5.1); Sodium 137 mmol/L (136-145); Total Protein 7.7 g/dL (6.4-8.2)
[2020-11-06] MEDS: Normal Saline 1,000 ML 1000 ML IV (11:03)
[2020-11-06] MEDS: Omnipaque 350 MG/ML 100 ML BTL IJ (11:16)
--- NOTE | 2020-11-06 11:30 | DI.US_ITS ---
Exam(s) US PELVIS EXAM: US PELVIS CLINICAL HISTORY: pelvic mass on ct TECHNIQUE: Ultrasound performed using standard protocol. COMPARISON: US US breast RT limited from 01/02/2018 FINDINGS: Pelvic ultrasound was performed to evaluate pelvic mass identified on today's CT examination. As not ed on CT, there is an approximately 10 cm in diameter pelvic mass which is predominantly cystic with significant mural solid components with increased vascular flow on Doppler evaluation. The origin of the mass is uncertain and it could originate either from ovary or uterus. Urinary bladder contains Nunez catheter and is nearly empty. IMPRESSION: Predominantly cystic pelvic mass of uncertain origin, highly suspicious for malignancy of ovarian or uterine origin in this age group. DATA REPOSITORY:
[2020-11-06] MEDS: LORazepam 2 MG/ML VIAL 0.5 MG IVP (13:37)
[2020-11-06 14:20] VITALS: BP 167/81; PULSE 98; RESP 20; TEMP 36.4; O2SAT 96
--- NOTE | 2020-11-06 15:05 | CMPROGNOTE_ITS ---
- If Service Date Differs Date of service: 11/06/20 Time of Service: 15:06 Care Management Progress Note Dalia is seen in the ED for acute abdominal pain. At the request of ED provider, CM coordinates a referral to Dr. Aletha Francois, [facility] Gynecologic Oncology.
== END 2020-11-06 14:25 | disposition home or self-care (01) ==
PROVIDERS: Emergency Provider Physician Assistant; PCP Physician Assistant Medical
DX: N13.0 Hydronephrosis with ureteropelvic junction obstruction (principal); R33.8 Other retention of urine; R19.00 Intra-abdominal and pelvic swelling, mass and lump, unspecified site; E87.6 Hypokalemia
CPT/HCPCS: 36415; 51702; 80053; 83690; 96361; 96374; 96375; 96376; 99285; 74177; 76856; 81003; 85025; 87086; J2060; J2405; J3010; J3490

== ENCOUNTER 2020-11-23 02:12 | Emergency (ER) | payer MEDICARE, OTHER, SELFPAY ==
[2020-11-23] VITALS (102 sets, daily range): BP systolic 116–155; BP diastolic 45–79; PULSE 84–121; RESP 16–20; TEMP 36.2–37.1; O2SAT 85–99
--- NOTE | 2020-11-23 02:15 | DI.CT_ITS ---
Exam(s) CT ABDOMEN PELVIS W EXAM: CT ABDOMEN PELVIS W CLINICAL HISTORY: Hysterectomy for ovarian cancer 5 days ago, pain. TECHNIQUE: Imaging Protocol: Axial computed tomography images with coronal and sagittal reformatted images were created and reviewed CONTRAST MATERIAL: Intravenous: Omnipaque 350 Contrast volume:100 ml Oral: / no COMPARISON: CT CT ABDOMEN PELVIS W from 11/06/2020 FINDINGS: ABDOMEN: Lung Bases: Right basilar atelectasis. Liver: Normal density. No measurable mass. Gallbladder and biliary tract: No radiodense calculus or dilation. Pancreas: Normal density, no abnormal calcifications or inflammatory process. Spleen: Normal. Kidneys: Normal size, contour and axis. No radiodense stones or obstructive uropathy. No masses seen. Retroaortic left renal vein. Adrenal glands: No masses seen. Abdominal Aorta: Abdominal portion non-dilated. Soft tissues: Surgical scar with minimal amount of postoperative air. Air air lower anterior abdomin al wall PELVIS: Bladder: Nearly empty. Wall thickening versus under distention. Small amount of air. This could be secondary to recent catheter.. No calculi.No focal mass. Bowel: Increased stool seen in the right side of the colon. Diverticulosis sigmoid. No evidence of diverticulitis. Mild nonspecific small bowel dilatation without wall thickening could be secondary t o postoperative ileus. Appendix normal. Peritoneal cavity: Fluid seen around liver and spleen. Small amount of fluid in lower pelvis. No ev idence of abscess or other localized collection. Small amount of free air remains present. Bones: Degenerative changes and scoliosis. Reproductive organs: Status post hysterectomy. Lymph nodes: Unremarkable. Impression: Peritoneal fluid and small amount of free air, presumably postsurgical. Small amount of air in the a nterior abdominal wall. Mild bowel dilatation could indicate postoperative ileus. Air in urinary bl adder could be secondary to previous catheter. RADIATION DOSE DELIVERED: 861.69mGy.cm Total DLP DATA REPOSITORY: All CT scans at this facility are submitted to the National Radiology Data Registry (NRDR) Dose Index Registry (DIR) with the [employer] (ACR). RADIATION OPTIMIZATION: All CT scans at this facility use at least one of these dose optimization te chniques: automated exposure control; mA and/or kV adjustment per patient size (includes targeted exa ms where dose is matched to clinical indication); or iterative reconstruction.
[2020-11-23] MEDS: Normal Saline 500 ML IV ×2 (02:38→11:20)
[2020-11-23] MEDS: Ondansetron 4 MG/2 ML VIAL IVP ×3 (02:39→08:09)
[2020-11-23 02:42] LABS: Lactate 1.9 mmol/L (0.6-1.4)
[2020-11-23 02:43] LABS: Abs Immature Grans 0.03 10^3/uL (0.0-0.06); Absolute Basophil Count 0.02 10^3/uL (0.0-0.2); Absolute Eosinophil Count 0.17 10^3/uL (0.0-0.7); Absolute Lymphocyte Count 0.84 10^3/uL (1.2-3.4); Absolute Neutrophil Count 6.11 10^3/uL (1.2-6.7); Basophils % 0.3; Eosinophils % 2.3; HCT 38.4 % (36.0-46.0); HGB 12.6 g/dL (11.2-15.7); Immature Grans % 0.4; Lymphocytes % 11.2; MCH 31.7 pg (27.0-33.0); MCHC 32.8 % (32.0-36.0); MCV 96.7 fL (80-95); Neutrophils % 81.8; Nucleated RBC 0 %; Platelet Count 391 10^3/uL (130-400); RBC 3.97 10^6/uL (3.93-5.22); RDW 11.9 % (11.7-14.6); RDW-SD 42.3 fL; WBC 7.47 10^3/uL (4.4-10.8)
[2020-11-23] MEDS: HYDROmorphone 2 MG/ML VIAL 1 MG IVP (02:44)
--- NOTE | 2020-11-23 02:45 | W.ED.GENAD ---
Discharge Plan Disposition Patient Disposition: [facility] Condition: Stable Discharge Details Clinical Impression: Post-operative complication Primary Care Provider: Manan Arzate V ED Provider: Ta Fiore Home Meds and New Rx's Prescriptions: No Action gabapentin 600 mg Tablet 600 mg PO QID RF: 0 meloxicam 15 mg Tablet 15 mg PO DAILY RF: 0 lisinopril 5 mg Tablet 5 mg PO DAILY RF: 0 azelastine 137 mcg (0.1 %) Aerosol,[place] 1 spray INTRANASAL DAILY RF: 0 gabapentin 600 mg tablet 600 mg PO QID RF: 0 diphenhydramine HCl [Unisom SleepGels] 50 mg capsule 50 mg PO PRN PRN (Reason: Motion Sickness) RF: 0 acetaminophen 650 mg Tablet 650 mg PO Q6H PRNRF: 0 ibuprofen 600 mg tablet 600 mg PO Q6H RF: 0 enoxaparin 40 mg/0.4 mL syringe 40 mg subcut HS RF: 0 oxycodone 5 mg capsule 5 - 10 mg PO Q3H PRN (Reason: Pain) RF: 0 duloxetine 30 mg capsule,delayed release(DR/EC) 30 mg PO DAILY RF: 0 ondansetron HCl [Zofran] 4 mg tablet 4 mg PO Q8H PRNQty: 10 RF: 0 potassium chloride 20 mEq tablet extended release 20 meq PO DAILY Qty: 7 RF: 0 Discharge Data Discharge Date/Time-TO BE ENTERED AT DEPARTURE: 11/23/20 18:05 Medical Decision Making <Deshaun Granados DO - Last Filed: 11/23/20 05:26> This is a 65-year-old female with a past medical history of a recent diagnosis of pelvic mass, patient this past had a hysterectomy which at that time was determined to have ovarian cancer as a cause of the mass. Patient had been doing well for the last 4 days with no complications however 2 hours ago she suddenly had severe right lower quadrant abdominal pain, nausea, and vomiting. She denies any fever or chills. She describes the pain is stabbing. No other complaints at this time. Patient does admit to worsening pain with movement. Improved by nothing. No other modifying factors. Physical exam demonstrates an intact incision site, no evidence of dehiscence. Notable right lower quadrant abdominal tenderness just right and lateral to the surgical incision site. Concern for postoperative complication/abscess. Will get CT imaging, rehydrate, evaluate labs, monitor closely and reassess. 5:[address] read has returned from virtual radiology, there is some residual extraluminal gas noted in the abdominal wall, with small pneumoperitoneum, suspected secondary to procedure. Patient urinary bladder wall thickening, small fluid collection in the right lower pelvis. No evidence of large foci of gas in that area. No evidence of appendicitis. Reassessment continues to demonstrate mild to moderate tenderness to the patient's abdomen. I did reach out to [facility] and discussed the case with Dr. Jsoeph of surgery at [facility]. We did have [facility]'s radiology over read the CT scan. At this time Dr. Joseph is unable to review the images herself. She recommends continued observation in the ED until she can review the images herself later this morning. We will continue to monitor closely in the ED, and evaluate for any change in abdominal pain or tenderness or clinical assessment. FINDINGS: Liver: Normal. No mass. Gallbladder and bile ducts: Normal. No calcified stones. No ductal dilation. Pancreas: Normal. No ductal dilation. Spleen: Normal. No splenomegaly. Adrenal glands: Normal. No mass. Kidneys and ureters: Normal. No hydronephrosis. Stomach and bowel: Colonic diverticulosis is present without evidence for inflammation. Appendix: No evidence of appendicitis. Intraperitoneal space: Residual extraluminal gas noted in the abdominal wall with small pneumoperitoneum. Vasculature: Unremarkable. No abdominal aortic aneurysm. Lymph nodes: Unremarkable. No enlarged lymph nodes. Urinary bladder: Urinary bladder wall thickening may reflect cystitis. Gas within the urinary bladder may reflect a recent presence of a Nunez catheter. Reproductive: Patient status post hysterectomy. Bones/joints: Unremarkable. No acute fracture. Soft tissues: Unremarkable. IMPRESSION: 1. Residual extraluminal gas noted in the abdominal wall with small pneumoperitoneum. 2. Urinary bladder wall thickening may reflect cystitis. Gas within the urinary bladder may reflect a recent presence of a Nunez catheter. Thank you for allowing us to participate in the care of your patient. Dictated and Authenticated by: Nathan Granados MD 11/23/2020 4:23 AM Eastern Time ([place] & [place]) <So Alvarez MD - Last Filed: 11/28/20 08:28> Pt signed out to me by Dr. Granados at time of shift change with repeat lactate/CBC, reassessment, discussion with dynamic at [facility] pending, please see his note for history, physical, and plan. 08:30: I discussed patient with Dr. Joseph of gynecology, who has reviewed CT images. Concern for pain secondary to significant amount of stool in colon versus postoperative complication that is not yet apparent. Patient to be transferred to [facility] for further evaluation, accepting physician is Dr Francois. Patient is amenable to the plan. Awaiting bed assignment. Patient continues to have exquisitely tender right abdomen and to pubic area on my assessment. She reports the pain is persistent but somewhat improved from when she presented initially. She is tachycardic at approximately 110. Systolic blood pressure 130s. Patient does look somewhat ill to me, no extremis. Repeat CBC reviewed, hemoglobin 10.9 from 12.6 (some delusional component to this, patient has received 1.5 L of IV fluid), lactate now 0.8. 11:15: Notified that patient will likely not receive a bed at [facility] until later this afternoon. Given patient's persistent tachycardia, persistent pain, recent operative course, I have concerned that it is in the patient's best interest to have emergent evaluation by [facility] for possible surgical intervention. [facility] transfer center contacted, awaiting callback from hand bender-onc. Patient reported pain returning, 4 mg IV morphine given in addition to 10 mg IV Reglan and 500 cc saline bolus (patient will have received a total of 2 L normal saline after this bolus). Given significant delay in transfer and definitive evaluation by hand bender-onc service, will repeat CBC and lactate. 14:16: no call back from [facility], Hgb 10.5, lactate 0.6. No apparent worsening of Pt's condition at this time, HR89, BP 124/49. Patient signed out to Dr. Fiore at time of shift change with bed assignment and transfer pending, Dr. Francois of gynecological oncology is accepting physician. Medical Records Medical records reviewed: Yes I reviewed the patient's medical records. Lab Data Lab results reviewed: Yes I reviewed the patient's lab results. ECG Data Attestation: I personally reviewed and interpreted this ECG (s) as follows: Interpretation: EKG shows sinus tachycardia 108, normal axis, no STEMI HPI <Deshaun Granados, DO - Last Filed: 11/23/20 05:26> General Date/Time Provider Initiated Documentation: 11/23/20 02:23. HPI Narrative: This is a 65-year-old female with a past medical history of a recent diagnosis of pelvic mass, patient this past had a hysterectomy which at that time was determined to have ovarian cancer as a cause of the mass. Patient had been doing well for the last 4 days with no complications however 2 hours ago she suddenly had severe right lower quadrant abdominal pain, nausea, and vomiting. She denies any fever or chills. She describes the pain is stabbing. No other complaints at this time. Patient does admit to worsening pain with movement. Improved by nothing. No other modifying factors. Related Data Home Medications Medication Instructions Recorded Confirmed azelastine 1 spray INTRANASAL DAILY 04/03/18 11/23/20 gabapentin 600 mg PO QID 04/03/18 11/23/20 lisinopril 5 mg PO DAILY 04/03/18 11/23/20 meloxicam 15 mg PO DAILY 04/03/18 11/23/20 duloxetine 30 mg PO DAILY 11/06/20 11/23/20 ondansetron HCl [Zofran] 4 mg PO Q8H PRN #10 tab 11/06/20 11/23/20 potassium chloride 20 meq PO DAILY #7 tab 11/06/20 11/23/20 acetaminophen 650 mg PO Q6H PRN 11/23/20 11/23/20 diphenhydramine HCl [Unisom 50 mg PO PRN PRN 11/23/20 11/23/20 SleepGels] enoxaparin 40 mg SUBCUT HS 11/23/20 11/23/20 gabapentin 600 mg PO QID 11/23/20 11/23/20 ibuprofen 600 mg PO Q6H 11/23/20 11/23/20 oxycodone 5 - 10 mg PO Q3H PRN 11/23/20 11/23/20 Previous Rx's Medication Instructions Recorded ondansetron HCl [Zofran] 4 mg PO Q8H PRN #10 tab 11/06/20 potassium chloride 20 meq PO DAILY #7 tab 11/06/20 Allergies Allergy/AdvReac Type Severity Reaction Status Date / Time Fish Containing Products AdvReac Severe vomiting Verified 11/23/20 02:28 Pork/Porcine Containing AdvReac Severe vomiting Verified 11/23/20 02:28 Products General Stated Complaint: Nausea/Vomit/Diar GUILLERMINA: 3 Review of Systems <Deshaun Granados DO - Last Filed: 11/23/20 05:26> All systems reviewed & are unremarkable except as noted in HPI and below PFSH <Deshaun Granados DO - Last Filed: 11/23/20 05:26> Medical History Cortical cataract of left eye Cortical cataract of right eye Surgical History Status post cataract extraction and insertion of intraocular lens of left eye Status post cataract extraction and insertion of intraocular lens of right eye (04/06/18) Social History Smoking/Tobacco Use Status: Never Smoking risk assessment performed?: Yes Alcohol Intake: never Drug use: Never Substance use type: does not use Do you feel safe at home: Yes Do you feel safe in your relationship?: Yes Exam <Deshaun Granados DO - Last Filed: 11/23/20 05:26> Narrative Exam Narrative: 1.Const: Well-nourished, Well-developed, appearing stated age 2.Eyes: PERRL, no conjunctival injection, and symmetrical lids. 3.ENT: Atraumatic external nose and ears. Moist MM. Neck: Symmetric, trachea midline, No thyromegaly. 4.CVS: +S1/S2, No murmurs or gallops. Peripheral pulses 2+ and equal in all extremities. Brisk capillary refill in all extremities. 5.RESP: Unlabored respiratory effort. Clear to auscultation bilaterally. No wheezes rales or rhonchi 6.GI: Soft, surgical incision site is intact, no evidence of erythema or edema or dehiscence. Notable tenderness the lower abdomen primarily to the right of the surgical incision site. Voluntary guarding and rebound present. 7.MSK: Normocephalic/Atraumatic, Extremities w/o deformity or ttp No cyanosis or clubbing, Normal movement of all extremities 8.Skin: Warm, Dry. No rashes or lesions. 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 Sensation grossly intact, no focal neurologic deficits. 10.Psych: (AAO) x3. Appropriate mood and affect Course <Deshaun Granados, DO - Last Filed: 11/23/20 05:26> Vital Signs Vital signs: Vital Signs Temperature 36.2 C L 11/23/20 02:17 Pulse 111 H 11/23/20 02:17 Respiratory Rate 20 11/23/20 02:17 Blood Pressure 148/73 H 11/23/20 02:17 Pulse Oximetry 95 11/23/20 02:17 Temperature 36.2 C L 11/23/20 02:17 Temperature Source Temporal Artery Scan 11/23/20 02:17 Pulse 111 H 11/23/20 02:17 Respiratory Rate 20 11/23/20 02:17 Respiratory Effort Non-Labored 11/23/20 02:31 Blood Pressure 148/73 H 11/23/20 02:17 Pulse Oximetry 95 11/23/20 02:17 Pain Level 10 11/23/20 02:44 Lab/Test Results Lab/Test Results: Laboratory Tests Range/Units 11/23/20 11/23/20 02:35 02:35 WBC (4.4-10.8) 10^3/uL 7.47 RBC (3.93-5.22) 10^6/uL 3.97 Hgb (11.2-15.7) g/dL 12.6 Hct (36.0-46.0) % 38.4 MCV (80-95) fL 96.7 H MCH (27.0-33.0) pg 31.7 MCHC (32.0-36.0) % 32.8 RDW (11.7-14.6) % 11.9 Plt Count (130-400) 10^3/uL 391 MPV (8.0-11.0) fL 9.0 Immature Gran % 0.4 Neutrophils % 81.8 Lymphocytes % 11.2 Monocytes % 4.0 Eosinophils % 2.3 Basophils % 0.3 Nucleated RBC % % 0 Absolute Neutrophils (1.2-6.7) 10^3/uL 6.11 Absolute Lymphocytes (1.2-3.4) 10^3/uL 0.84 L Absolute Monocytes (0.1-0.8) 10^3/uL 0.30 Absolute Eosinophils (0.0-0.7) 10^3/uL 0.17 Absolute Basophils (0.0-0.2) 10^3/uL 0.02 VBG Lactate (0.6-1.4) mmol/L 1.9 H Sign Out <Deshaun Granados DO - Last Filed: 11/23/20 05:26> Sign Out Data: Sign Out Comment: Postop day 5 status post abdominal hysterectomy and oophorectomy. Abdominal pain and vomiting. Pending reevaluation at 8-9am by [facility] OB after they review CT images. Last updated by Deshaun Granados DO at 11/23/20 07:06 Sign Out Comment: Patient signed out to Dr. Fiore at time of shift change with bed assignment, transfer pending. Dr. Francois of gynecological oncology is accepting physician. Last updated by So Alvarez MD at 11/23/20 15:32
[2020-11-23 02:48] LABS: Bilirubin Negative (Negative); Blood Small (Negative); Clarity Sl Cloudy (Clear); Glucose Negative (Negative); Ketones Negative (Negative); Leukocyte Esterase Negative (Negative); Nitrite Negative (Negative); Specific Gravity >= 1.030 (1.005-1.025); Urobilinogen 0.2 EU/dL (Up TO 0.2); pH 6.5 (5-8)
[2020-11-23 02:50] LABS: Bacteria Rare HPF (Negative); C & S Indicated? No; Casts Negative LPF (Negative); Crystals Negative HPF (Negative); Epithelial Cells Rare HPF (Negative); Mucus Negative (Negative); RBC 0-2 HPF (0-2); WBC Negative HPF (0-5)
[2020-11-23 03:02] LABS: ALT 14 U/L (14-59); AST 19 U/L (15-37); Albumin 2.9 g/dL (3.4-5.0); Alkaline Phosphatase 70 U/L (46-116); Anion Gap 8.2 mmol/L (3-11); BUN 9 mg/dL (7-18); Bilirubin, Total 0.4 mg/dL (0.2-1.0); CO2 32.8 mmol/L (21.0-32.0); Calcium 8.5 mg/dL (8.5-10.1); Chloride 101 mmol/L (98-107); Estimated GFR 55.64 (mL/min/1.73m2); Glucose 172 mg/dL (74-106); Potassium 3.3 mmol/L (3.5-5.1); Sodium 142 mmol/L (136-145); Total Protein 6.6 g/dL (6.4-8.2)
[2020-11-23] MEDS: Omnipaque 350 MG/ML 100 ML BTL IJ (03:03)
[2020-11-23] MEDS: Normal Saline Flush 10 ML SYR IVP (03:07)
[2020-11-23] MEDS: Normal Saline 1,000 ML 1000 ML IV (03:55)
[2020-11-23] MEDS: MORPHine 4 MG/ML SYR IVP ×2 (04:08→11:34)
--- NOTE | 2020-11-23 04:23 | DI.VRAD_ITS ---
Addendum created by Nathan Granados MD on 11/23/2020 4:33:08 AM EDT: THIS REPORT CONTAINS FINDINGS THAT MAY BE CRITICAL TO PATIENT CARE. The findings were verbally communicated via telephone conference with EMERY GUIDO at 4:33 AM EDT on 11/23/2020. The findings were acknowledged and understood. Initial report created on 11/23/2020 4:23:28 AM EDT: PROCEDURE INFORMATION: Exam: CT Abdomen And Pelvis With Contrast Exam date and time: 11/23/2020 2:29 AM Age: 65 years old Clinical indication: Abdominal pain; Localized; Lower; Prior surgery; Surgery date: 3-7 days post-operative; Surgery type: Hysterectomy for ovarian cancer 5 days ago, ; patient HX: Pain, nausea TECHNIQUE: Imaging protocol: Computed tomography of the abdomen and pelvis with contrast. Radiation optimization: All CT scans at this facility use at least one of these dose optimization techniques: automated exposure control; mA and/or kV adjustment per patient size (includes targeted exams where dose is matched to clinical indication); or iterative reconstruction. Contrast material: OMNIPAQUE 350; Contrast volume: 100 ml; Contrast route: INTRAVENOUS (IV); COMPARISON: CT ABDOMEN PELVIS W 11/06/2020 11:20 AM FINDINGS: Liver: Normal. No mass. Gallbladder and bile ducts: Normal. No calcified stones. No ductal dilation. Pancreas: Normal. No ductal dilation. Spleen: Normal. No splenomegaly. Adrenal glands: Normal. No mass. Kidneys and ureters: Normal. No hydronephrosis. Stomach and bowel: Colonic diverticulosis is present without evidence for inflammation. Appendix: No evidence of appendicitis. Intraperitoneal space: Residual extraluminal gas noted in the abdominal wall with small pneumoperitoneum. Vasculature: Unremarkable. No abdominal aortic aneurysm. Lymph nodes: Unremarkable. No enlarged lymph nodes. Urinary bladder: Urinary bladder wall thickening may reflect cystitis. Gas within the urinary bladder may reflect a recent presence of a Nunez catheter. Reproductive: Patient status post hysterectomy. Bones/joints: Unremarkable. No acute fracture. Soft tissues: Unremarkable. IMPRESSION: 1. Residual extraluminal gas noted in the abdominal wall with small pneumoperitoneum. 2. Urinary bladder wall thickening may reflect cystitis. Gas within the urinary bladder may reflect a recent presence of a Nunez catheter. Dictated and Authenticated by: Nathan Granados MD. Ordering:JESSICA Meade MD
[2020-11-23] MEDS: Ketorolac 15 MG/ML VIAL IVP (05:28)
[2020-11-23 08:01] LABS: Lactate 0.8 mmol/L (0.6-1.4)
[2020-11-23 08:04] LABS: Abs Immature Grans 0.02 10^3/uL (0.0-0.06); Absolute Basophil Count 0.02 10^3/uL (0.0-0.2); Absolute Eosinophil Count 0.07 10^3/uL (0.0-0.7); Absolute Lymphocyte Count 0.62 10^3/uL (1.2-3.4); Absolute Monocyte Count 0.43 10^3/uL (0.1-0.8); Absolute Neutrophil Count 6.22 10^3/uL (1.2-6.7); Basophils % 0.3; Eosinophils % 0.9; HCT 33.4 % (36.0-46.0); HGB 10.9 g/dL (11.2-15.7); Immature Grans % 0.3; Lymphocytes % 8.4; MCHC 32.6 % (32.0-36.0); MCV 97.9 fL (80-95); MPV 8.8 fL (8.0-11.0); Monocytes % 5.8; Neutrophils % 84.3; Nucleated RBC 0 %; Platelet Count 338 10^3/uL (130-400); RBC 3.41 10^6/uL (3.93-5.22); RDW 11.9 % (11.7-14.6); RDW-SD 43.2 fL; WBC 7.38 10^3/uL (4.4-10.8)
--- NOTE | 2020-11-23 08:15 | RT.EKG_ITS ---
APPROVED REPORT Exam: Resting ECG Reason for Exam: tachycardia Patient Location: E HR:108 bpm ECG Measurements Heart Rate 108 AXIS WV 149 P 49 QRSd 77 QRS 11 QT 315 T 30 QTc 422 Conclusion Sinus tachycardia...rate> 99 sinus tachycardia 108, normal axis, no STEMI
[2020-11-23] MEDS: Metoclopramide 10 MG/2 ML VIAL IVP (11:31)
[2020-11-23 12:16] LABS: Lactate 0.6 mmol/L (0.6-1.4)
[2020-11-23 12:17] LABS: HCT 32.8 % (36.0-46.0); HGB 10.5 g/dL (11.2-15.7); MCH 31.5 pg (27.0-33.0); MCV 98.5 fL (80-95); MPV 8.5 fL (8.0-11.0); Platelet Count 328 10^3/uL (130-400); RBC 3.33 10^6/uL (3.93-5.22); RDW 11.9 % (11.7-14.6); RDW-SD 43.1 fL; WBC 5.43 10^3/uL (4.4-10.8)
[2020-11-23 13:09] LABS: Source Nasal/Nares
[2020-11-23 15:51] LABS: COVID-19 PCR Negative (Negative)
== END 2020-11-23 18:05 | disposition short-term general hospital (02) ==
PROVIDERS: Student in an Organized Health Care Education/Training Program; Emergency Provider Emergency Medicine; PCP Physician Assistant Medical
DX: T81.89XA Other complications of procedures, not elsewhere classified, initial encounter (principal); R00.0 Tachycardia, unspecified; R10.31 Right lower quadrant pain; R11.2 Nausea with vomiting, unspecified
CPT/HCPCS: 36415; 80053; 85027; 87635; 93005; 96361; 96374; 96375; 96376; 99285; 74177; 81003; 81015; 83605; 85025; 93010; J1885; J2270; J2405; J2765; J3490

== ENCOUNTER 2021-01-05 01:05 | Outpatient (RCR) | payer MEDICARE, OTHER, SELFPAY ==
[2020-12-28] MEDS: Heparin 500 UNITS/5 ML SYRINGE (13:59)
[2020-12-28] MEDS: Normal Saline Flush 10 ML SYR IVP (14:10)
[2020-12-28 14:19] LABS: Absolute Basophil Count 0.02 10^3/uL (0.0-0.2); Absolute Eosinophil Count 0.01 10^3/uL (0.0-0.7); Absolute Monocyte Count 0.28 10^3/uL (0.1-0.8); Basophils % 1.6; Eosinophils % 0.8; HCT 34.3 % (36.0-46.0); HGB 11.7 g/dL (11.2-15.7); Lymphocytes % 73.8; MCH 31.5 pg (27.0-33.0); MCHC 34.1 % (32.0-36.0); MCV 92.2 fL (80-95); MPV 9.5 fL (8.0-11.0); Neutrophils % 0.8; Nucleated RBC 0 %; Platelet Count 264 10^3/uL (130-400); RBC 3.72 10^6/uL (3.93-5.22); RDW 11.5 % (11.7-14.6); RDW-SD 38.8 fL
[2020-12-28 14:35] LABS: ALT 21 U/L (14-59); AST 11 U/L (15-37); Albumin 3.7 g/dL (3.4-5.0); Alkaline Phosphatase 87 U/L (46-116); Anion Gap 7.1 mmol/L (3-11); BUN 7 mg/dL (7-18); Bilirubin, Total 0.4 mg/dL (0.2-1.0); CO2 31.9 mmol/L (21.0-32.0); CREATININE 0.9 mg/dL (0.55-1.02); Calcium 8.7 mg/dL (8.5-10.1); Chloride 97 mmol/L (98-107); Glucose 112 mg/dL (74-106); Potassium 3.3 mmol/L (3.5-5.1); Sodium 136 mmol/L (136-145); Total Protein 7.1 g/dL (6.4-8.2)
[2020-12-28 15:28] LABS: WBC 1.22 10^3/uL (4.4-10.8)
[2020-12-28 15:29] LABS: Absolute Neutrophil Count 0.01 10^3/uL (1.2-6.7); Diff Comment Diff Reviewed
[2020-12-29 09:49] LABS: CA 125 21 U/mL (<30)
[2021-01-05 10:32] LABS: Abs Immature Grans 0.04 10^3/uL (0.0-0.06); Absolute Basophil Count 0.03 10^3/uL (0.0-0.2); Absolute Eosinophil Count 0.06 10^3/uL (0.0-0.7); Absolute Lymphocyte Count 1.26 10^3/uL (1.2-3.4); Absolute Monocyte Count 0.35 10^3/uL (0.1-0.8); Absolute Neutrophil Count 3.27 10^3/uL (1.2-6.7); Basophils % 0.6; Eosinophils % 1.2; HCT 35.7 % (36.0-46.0); Immature Grans % 0.8; Lymphocytes % 25.1; MCH 31.8 pg (27.0-33.0); MCHC 33.6 % (32.0-36.0); MCV 94.7 fL (80-95); MPV 8.4 fL (8.0-11.0); Neutrophils % 65.3; Nucleated RBC 0 %; Platelet Count 271 10^3/uL (130-400); RBC 3.77 10^6/uL (3.93-5.22); RDW 12.9 % (11.7-14.6); WBC 5.01 10^3/uL (4.4-10.8)
[2021-01-05 10:49] LABS: ALT 21 U/L (14-59); AST 13 U/L (15-37); Albumin 3.5 g/dL (3.4-5.0); Alkaline Phosphatase 81 U/L (46-116); Anion Gap 10.7 mmol/L (3-11); BUN 8 mg/dL (7-18); Bilirubin, Total 0.3 mg/dL (0.2-1.0); CO2 27.3 mmol/L (21.0-32.0); CREATININE 0.9 mg/dL (0.55-1.02); Calcium 8.7 mg/dL (8.5-10.1); Chloride 102 mmol/L (98-107); Glucose 106 mg/dL (74-106); Potassium 3.8 mmol/L (3.5-5.1); Sodium 140 mmol/L (136-145); Total Protein 6.9 g/dL (6.4-8.2)
[2021-01-05] MEDS: Normal Saline Flush 10 ML SYR IVP (11:20)
[2021-01-05] MEDS: Heparin 500 UNITS/5 ML SYRINGE IV (11:20)
[2021-01-06 13:38] LABS: CA 125 20 U/mL (<30)
== END 2021-01-10 23:59 | disposition home or self-care (01) ==
LOC: INF 01:05
PROVIDERS: PCP Physician Assistant Medical; Visit Provider Nurse Practitioner Family
DX: C56.1 Malignant neoplasm of right ovary (principal); Z45.2 Encounter for adjustment and management of vascular access device
CPT/HCPCS: 36591; 80053; 86304; 85025

== ENCOUNTER 2021-02-08 01:34 | Outpatient (RCR) | payer MEDICARE, OTHER, SELFPAY ==
[2021-01-18] MEDS: Normal Saline Flush 10 ML SYR IVP (13:41)
[2021-01-18] MEDS: Heparin 500 UNITS/5 ML SYRINGE IV (13:41)
[2021-01-18 14:16] LABS: Abs Immature Grans 0.34 10^3/uL (0.0-0.06); Absolute Basophil Count 0.03 10^3/uL (0.0-0.2); Absolute Eosinophil Count 0.02 10^3/uL (0.0-0.7); Absolute Lymphocyte Count 1.55 10^3/uL (1.2-3.4); Absolute Monocyte Count 0.54 10^3/uL (0.1-0.8); Absolute Neutrophil Count 5.75 10^3/uL (1.2-6.7); Basophils % 0.4; Eosinophils % 0.2; HCT 33.8 % (36.0-46.0); HGB 11.6 g/dL (11.2-15.7); Immature Grans % 4.1; Lymphocytes % 18.8; MCH 31.9 pg (27.0-33.0); MCHC 34.3 % (32.0-36.0); MCV 92.9 fL (80-95); MPV 9.1 fL (8.0-11.0); Monocytes % 6.6; Neutrophils % 69.9; Nucleated RBC 0 %; Platelet Count 194 10^3/uL (130-400); RBC 3.64 10^6/uL (3.93-5.22); RDW 13.5 % (11.7-14.6); RDW-SD 43.2 fL; WBC 8.23 10^3/uL (4.4-10.8)
[2021-01-18 14:27] LABS: ALT 20 U/L (14-59); AST 13 U/L (15-37); Albumin 3.8 g/dL (3.4-5.0); Alkaline Phosphatase 101 U/L (46-116); Anion Gap 8.2 mmol/L (3-11); BUN 5 mg/dL (7-18); Bilirubin, Total 0.3 mg/dL (0.2-1.0); CO2 31.8 mmol/L (21.0-32.0); CREATININE 0.9 mg/dL (0.55-1.02); Calcium 8.7 mg/dL (8.5-10.1); Chloride 99 mmol/L (98-107); Glucose 139 mg/dL (74-106); Potassium 3.2 mmol/L (3.5-5.1); Sodium 139 mmol/L (136-145); Total Protein 6.9 g/dL (6.4-8.2)
[2021-01-20 14:32] LABS: CA 125 13 U/mL (<30)
[2021-01-26] MEDS: Heparin 500 UNITS/5 ML SYRINGE IV (10:17)
[2021-01-26] MEDS: Normal Saline Flush 10 ML SYR IVP (10:17)
[2021-01-26 10:19] LABS: Abs Immature Grans 0.01 10^3/uL (0.0-0.06); Absolute Basophil Count 0.05 10^3/uL (0.0-0.2); Absolute Eosinophil Count 0.11 10^3/uL (0.0-0.7); Absolute Lymphocyte Count 1.33 10^3/uL (1.2-3.4); Absolute Monocyte Count 0.49 10^3/uL (0.1-0.8); Absolute Neutrophil Count 2.65 10^3/uL (1.2-6.7); Basophils % 1.1; Eosinophils % 2.4; HCT 34.2 % (36.0-46.0); HGB 11.6 g/dL (11.2-15.7); Immature Grans % 0.2; Lymphocytes % 28.7; MCH 32.5 pg (27.0-33.0); MCHC 33.9 % (32.0-36.0); MCV 95.8 fL (80-95); MPV 8.5 fL (8.0-11.0); Monocytes % 10.6; Nucleated RBC 0 %; Platelet Count 331 10^3/uL (130-400); RBC 3.57 10^6/uL (3.93-5.22); RDW 14.6 % (11.7-14.6); RDW-SD 50.4 fL; WBC 4.64 10^3/uL (4.4-10.8)
[2021-01-26 10:32] LABS: ALT 22 U/L (14-59); AST 15 U/L (15-37); Albumin 3.5 g/dL (3.4-5.0); Alkaline Phosphatase 86 U/L (46-116); Anion Gap 8.1 mmol/L (3-11); BUN 11 mg/dL (7-18); Bilirubin, Total 0.3 mg/dL (0.2-1.0); CO2 31.9 mmol/L (21.0-32.0); CREATININE 0.9 mg/dL (0.55-1.02); Calcium 8.7 mg/dL (8.5-10.1); Chloride 102 mmol/L (98-107); Glucose 127 mg/dL (74-106); Potassium 3.8 mmol/L (3.5-5.1); Sodium 142 mmol/L (136-145); Total Protein 6.7 g/dL (6.4-8.2)
[2021-01-27 10:45] LABS: CA 125 12 U/mL (<30)
[2021-02-08 10:53] LABS: HCT 33.6 % (36.0-46.0); HGB 11.4 g/dL (11.2-15.7); MCH 32.5 pg (27.0-33.0); MCHC 33.9 % (32.0-36.0); MCV 95.7 fL (80-95); MPV 9.5 fL (8.0-11.0); Nucleated RBC 0 %; Platelet Count 203 10^3/uL (130-400); RBC 3.51 10^6/uL (3.93-5.22); RDW 15.6 % (11.7-14.6); RDW-SD 51.5 fL; WBC 10.91 10^3/uL (4.4-10.8)
[2021-02-08] MEDS: Normal Saline Flush 10 ML SYR IVP (11:08)
[2021-02-08] MEDS: Heparin 500 UNITS/5 ML SYRINGE IV (11:08)
[2021-02-08 11:10] LABS: ALT 27 U/L (14-59); AST 31 U/L (15-37); Albumin 3.7 g/dL (3.4-5.0); Alkaline Phosphatase 111 U/L (46-116); BUN 4 mg/dL (7-18); Bilirubin, Total 0.4 mg/dL (0.2-1.0); CREATININE 0.9 mg/dL (0.55-1.02); Calcium 8.6 mg/dL (8.5-10.1); Chloride 95 mmol/L (98-107); Glucose 121 mg/dL (74-106); Sodium 135 mmol/L (136-145); Total Protein 6.8 g/dL (6.4-8.2)
[2021-02-08 11:16] LABS: Absolute Lymphocyte Count 0.65 10^3/uL (1.2-3.4); Absolute Monocyte Count 0.98 10^3/uL (0.1-0.8); Absolute Neutrophil Count 9.27 10^3/uL (1.2-6.7); Bands % 2; Diff Comment Manual Differential; RBC Morphology Normal
[2021-02-09 11:20] LABS: CA 125 13 U/mL (<30)
== END 2021-02-09 23:59 | disposition home or self-care (01) ==
LOC: INF 01:34
PROVIDERS: PCP Physician Assistant Medical; Visit Provider Nurse Practitioner Family
DX: C56.1 Malignant neoplasm of right ovary (principal); Z45.2 Encounter for adjustment and management of vascular access device
CPT/HCPCS: 36591; 80053; 86304; 85025

== ENCOUNTER 2021-03-09 02:20 | Outpatient (RCR) | payer MEDICARE, OTHER, SELFPAY ==
[2021-02-16] MEDS: Heparin 500 UNITS/5 ML SYRINGE IV (09:56)
[2021-02-16] MEDS: Normal Saline Flush 10 ML SYR IVP (09:56)
[2021-02-16 10:29] LABS: Abs Immature Grans 0.04 10^3/uL (0.0-0.06); Absolute Basophil Count 0.04 10^3/uL (0.0-0.2); Absolute Eosinophil Count 0.02 10^3/uL (0.0-0.7); Absolute Lymphocyte Count 0.96 10^3/uL (1.2-3.4); Absolute Neutrophil Count 5.72 10^3/uL (1.2-6.7); Basophils % 0.6; Eosinophils % 0.3; HCT 36.7 % (36.0-46.0); HGB 11.9 g/dL (11.2-15.7); Immature Grans % 0.6; Lymphocytes % 13.4; MCH 32.7 pg (27.0-33.0); MCHC 32.4 % (32.0-36.0); MCV 100.8 fL (80-95); MPV 8.5 fL (8.0-11.0); Monocytes % 5.6; Neutrophils % 79.5; Nucleated RBC 0 %; Platelet Count 282 10^3/uL (130-400); RBC 3.64 10^6/uL (3.93-5.22); RDW 16.1 % (11.7-14.6); RDW-SD 59.7 fL; WBC 7.18 10^3/uL (4.4-10.8)
[2021-02-16 10:51] LABS: ALT 20 U/L (14-59); AST 13 U/L (15-37); Albumin 3.6 g/dL (3.4-5.0); Alkaline Phosphatase 97 U/L (46-116); Anion Gap 9.5 mmol/L (3-11); BUN 8 mg/dL (7-18); Bilirubin, Total 0.4 mg/dL (0.2-1.0); CO2 26.5 mmol/L (21.0-32.0); CREATININE 0.8 mg/dL (0.55-1.02); Calcium 8.7 mg/dL (8.5-10.1); Chloride 100 mmol/L (98-107); Glucose 141 mg/dL (74-106); Potassium 3.8 mmol/L (3.5-5.1); Sodium 136 mmol/L (136-145); Total Protein 6.9 g/dL (6.4-8.2)
[2021-02-17 10:29] LABS: CA 125 13 U/mL (<30)
[2021-03-01] MEDS: Heparin 500 UNITS/5 ML SYRINGE IV (10:47)
[2021-03-01] MEDS: Normal Saline Flush 10 ML SYR IVP (10:47)
[2021-03-01 11:09] LABS: Absolute Basophil Count 0.04 10^3/uL (0.0-0.2); Absolute Eosinophil Count 0.01 10^3/uL (0.0-0.7); Absolute Lymphocyte Count 1.14 10^3/uL (1.2-3.4); Absolute Monocyte Count 0.57 10^3/uL (0.1-0.8); Absolute Neutrophil Count 5.75 10^3/uL (1.2-6.7); Basophils % 0.5; Eosinophils % 0.1; HCT 33.7 % (36.0-46.0); HGB 11.4 g/dL (11.2-15.7); Immature Grans % 2.6; Lymphocytes % 14.8; MCH 33.9 pg (27.0-33.0); MCHC 33.8 % (32.0-36.0); MCV 100.3 fL (80-95); MPV 9.4 fL (8.0-11.0); Monocytes % 7.4; Neutrophils % 74.6; Nucleated RBC 0 %; Platelet Count 180 10^3/uL (130-400); RBC 3.36 10^6/uL (3.93-5.22); RDW 15.3 % (11.7-14.6); RDW-SD 55.4 fL; WBC 7.71 10^3/uL (4.4-10.8)
[2021-03-01 11:22] LABS: ALT 21 U/L (14-59); AST 17 U/L (15-37); Albumin 3.8 g/dL (3.4-5.0); Alkaline Phosphatase 110 U/L (46-116); Anion Gap 8.3 mmol/L (3-11); BUN 3 mg/dL (7-18); Bilirubin, Total 0.3 mg/dL (0.2-1.0); CO2 30.7 mmol/L (21.0-32.0); CREATININE 0.9 mg/dL (0.55-1.02); Calcium 8.7 mg/dL (8.5-10.1); Chloride 94 mmol/L (98-107); Glucose 140 mg/dL (74-106); Potassium 3.2 mmol/L (3.5-5.1); Sodium 133 mmol/L (136-145)
[2021-03-02 10:53] LABS: CA 125 13 U/mL (<30)
[2021-03-09] MEDS: Heparin 500 UNITS/5 ML SYRINGE IV (10:40)
[2021-03-09] MEDS: Normal Saline Flush 10 ML SYR IVP (10:40)
[2021-03-09 10:50] LABS: Abs Immature Grans 0.01 10^3/uL (0.0-0.06); Absolute Basophil Count 0.02 10^3/uL (0.0-0.2); Absolute Eosinophil Count 0.03 10^3/uL (0.0-0.7); Absolute Lymphocyte Count 0.85 10^3/uL (1.2-3.4); Absolute Monocyte Count 0.35 10^3/uL (0.1-0.8); Absolute Neutrophil Count 3.09 10^3/uL (1.2-6.7); Basophils % 0.5; Eosinophils % 0.7; HCT 31.8 % (36.0-46.0); HGB 10.8 g/dL (11.2-15.7); Immature Grans % 0.2; Lymphocytes % 19.5; MCH 34.7 pg (27.0-33.0); MCV 102.3 fL (80-95); MPV 8.3 fL (8.0-11.0); Neutrophils % 71.1; Nucleated RBC 0 %; Platelet Count 243 10^3/uL (130-400); RBC 3.11 10^6/uL (3.93-5.22); RDW 15.4 % (11.7-14.6); RDW-SD 57.6 fL; WBC 4.35 10^3/uL (4.4-10.8)
[2021-03-09 10:57] LABS: ALT 20 U/L (14-59); AST 14 U/L (15-37); Albumin 3.5 g/dL (3.4-5.0); Alkaline Phosphatase 92 U/L (46-116); Anion Gap 8.1 mmol/L (3-11); BUN 8 mg/dL (7-18); Bilirubin, Total 0.3 mg/dL (0.2-1.0); CO2 29.9 mmol/L (21.0-32.0); CREATININE 0.7 mg/dL (0.55-1.02); Calcium 8.6 mg/dL (8.5-10.1); Chloride 100 mmol/L (98-107); Glucose 119 mg/dL (74-106); Potassium 3.4 mmol/L (3.5-5.1); Sodium 138 mmol/L (136-145); Total Protein 6.7 g/dL (6.4-8.2)
[2021-03-10 10:18] LABS: CA 125 10 U/mL (<30)
== END 2021-03-12 23:59 | disposition home or self-care (01) ==
LOC: INF 02:20
PROVIDERS: PCP Physician Assistant Medical; Visit Provider Nurse Practitioner Family
DX: C56.1 Malignant neoplasm of right ovary (principal); Z45.2 Encounter for adjustment and management of vascular access device
CPT/HCPCS: 36591; 80053; 86304; 85025

== ENCOUNTER 2021-03-30 01:18 | Outpatient (RCR) | payer MEDICARE, OTHER, SELFPAY ==
[2021-03-22 10:47] LABS: Absolute Basophil Count 0.04 10^3/uL (0.0-0.2); Absolute Lymphocyte Count 1.55 10^3/uL (1.2-3.4); Absolute Monocyte Count 0.83 10^3/uL (0.1-0.8); Absolute Neutrophil Count 7.81 10^3/uL (1.2-6.7); Basophils % 0.4; HCT 29.4 % (36.0-46.0); HGB 10.1 g/dL (11.2-15.7); Immature Grans % 2.8; Lymphocytes % 14.7; MCH 35.4 pg (27.0-33.0); MCHC 34.4 % (32.0-36.0); MCV 103.2 fL (80-95); MPV 9.6 fL (8.0-11.0); Monocytes % 7.9; Neutrophils % 74.2; Nucleated RBC 0 %; Platelet Count 176 10^3/uL (130-400); RBC 2.85 10^6/uL (3.93-5.22); RDW 13.3 % (11.7-14.6); RDW-SD 49.3 fL; WBC 10.53 10^3/uL (4.4-10.8)
[2021-03-22] MEDS: Heparin 500 UNITS/5 ML SYRINGE IV (10:48)
[2021-03-22] MEDS: Normal Saline Flush 10 ML SYR IVP (10:48)
[2021-03-22 11:00] LABS: ALT 27 U/L (14-59); AST 14 U/L (15-37); Albumin 3.5 g/dL (3.4-5.0); Alkaline Phosphatase 109 U/L (46-116); Anion Gap 9.8 mmol/L (3-11); BUN 4 mg/dL (7-18); Bilirubin, Total 0.3 mg/dL (0.2-1.0); CO2 31.2 mmol/L (21.0-32.0); Calcium 8.4 mg/dL (8.5-10.1); Chloride 89 mmol/L (98-107); Estimated GFR 55.64 (mL/min/1.73m2); Glucose 153 mg/dL (74-106); Sodium 130 mmol/L (136-145); Total Protein 6.6 g/dL (6.4-8.2)
[2021-03-22 11:21] LABS: Potassium 2.7 mmol/L (3.5-5.1)
[2021-03-23 11:34] LABS: CA 125 14 U/mL (<30)
[2021-03-24] MEDS: Normal Saline Flush 10 ML SYR IVP (13:48)
[2021-03-24] MEDS: Heparin 500 UNITS/5 ML SYRINGE IV (13:48)
[2021-03-24 13:54] LABS: Absolute Basophil Count 0.04 10^3/uL (0.0-0.2); Absolute Lymphocyte Count 1.56 10^3/uL (1.2-3.4); Absolute Monocyte Count 0.61 10^3/uL (0.1-0.8); Absolute Neutrophil Count 4.87 10^3/uL (1.2-6.7); Basophils % 0.6; HCT 29.9 % (36.0-46.0); HGB 10.4 g/dL (11.2-15.7); Immature Grans % 1.4; Lymphocytes % 21.7; MCH 36.1 pg (27.0-33.0); MCHC 34.8 % (32.0-36.0); MCV 103.8 fL (80-95); MPV 9.2 fL (8.0-11.0); Monocytes % 8.5; Neutrophils % 67.8; Nucleated RBC 0 %; Platelet Count 172 10^3/uL (130-400); RBC 2.88 10^6/uL (3.93-5.22); RDW 13.2 % (11.7-14.6); RDW-SD 50.5 fL; WBC 7.18 10^3/uL (4.4-10.8)
[2021-03-24 14:05] LABS: ALT 25 U/L (14-59); AST 15 U/L (15-37); Albumin 3.4 g/dL (3.4-5.0); Alkaline Phosphatase 111 U/L (46-116); Anion Gap 6.6 mmol/L (3-11); BUN 5 mg/dL (7-18); Bilirubin, Total 0.4 mg/dL (0.2-1.0); CO2 30.4 mmol/L (21.0-32.0); CREATININE 0.7 mg/dL (0.55-1.02); Calcium 8.1 mg/dL (8.5-10.1); Chloride 91 mmol/L (98-107); Glucose 117 mg/dL (74-106); Potassium 4.2 mmol/L (3.5-5.1); Sodium 128 mmol/L (136-145); Total Protein 6.7 g/dL (6.4-8.2)
[2021-03-25 10:44] LABS: CA 125 19 U/mL (<30)
[2021-03-30] MEDS: Normal Saline Flush 10 ML SYR IVP (10:36)
[2021-03-30] MEDS: Heparin 500 UNITS/5 ML SYRINGE IV (10:36)
[2021-03-30 10:48] LABS: Abs Immature Grans 0.03 10^3/uL (0.0-0.06); Absolute Basophil Count 0.03 10^3/uL (0.0-0.2); Absolute Eosinophil Count 0.01 10^3/uL (0.0-0.7); Absolute Lymphocyte Count 0.85 10^3/uL (1.2-3.4); Absolute Monocyte Count 0.35 10^3/uL (0.1-0.8); Absolute Neutrophil Count 3.61 10^3/uL (1.2-6.7); Basophils % 0.6; Eosinophils % 0.2; HCT 31.6 % (36.0-46.0); HGB 10.9 g/dL (11.2-15.7); Immature Grans % 0.6; Lymphocytes % 17.4; MCHC 34.5 % (32.0-36.0); MCV 104.3 fL (80-95); MPV 8.2 fL (8.0-11.0); Monocytes % 7.2; Nucleated RBC 0 %; Platelet Count 268 10^3/uL (130-400); RBC 3.03 10^6/uL (3.93-5.22); RDW 13.4 % (11.7-14.6); RDW-SD 50.3 fL; WBC 4.88 10^3/uL (4.4-10.8)
[2021-03-30 11:07] LABS: ALT 23 U/L (14-59); AST 16 U/L (15-37); Albumin 3.5 g/dL (3.4-5.0); Alkaline Phosphatase 93 U/L (46-116); Anion Gap 8.2 mmol/L (3-11); BUN 6 mg/dL (7-18); Bilirubin, Total 0.3 mg/dL (0.2-1.0); CO2 27.8 mmol/L (21.0-32.0); CREATININE 0.9 mg/dL (0.55-1.02); Calcium 8.4 mg/dL (8.5-10.1); Chloride 97 mmol/L (98-107); Glucose 117 mg/dL (74-106); Potassium 3.3 mmol/L (3.5-5.1); Sodium 133 mmol/L (136-145); Total Protein 6.7 g/dL (6.4-8.2)
[2021-03-31 11:25] LABS: CA 125 15 U/mL (<30)
== END 2021-04-12 23:59 | disposition home or self-care (01) ==
LOC: INF 01:18
PROVIDERS: PCP Physician Assistant Medical; Visit Provider Nurse Practitioner Family
DX: C56.1 Malignant neoplasm of right ovary (principal); Z45.2 Encounter for adjustment and management of vascular access device
CPT/HCPCS: 36591; 80053; 86304; 85025

== ENCOUNTER 2021-05-19 01:12 | Outpatient (CLI) | payer MEDICARE, OTHER, SELFPAY ==
--- NOTE | 2021-05-19 12:58 | DI.MAMMO_ITS ---
Exam(s) MAMMO SCREENING EXAM: MAMMO SCREENING CLINICAL HISTORY: SCREENING,FIBROCYSTIC BREAST CHANGES,N60.19,Z12.31,H/O OVARIAN CA TECHNIQUE: Mammograms were interpreted according to the usual protocol including computer analysis w [email or web address] CAD system, tomosynthesis and C-view imaging. COMPARISON: FINDINGS: The breasts are heterogeneously dense with fairly symmetrical distribution of fibroglandular tissue. No dominant mass or clumped microcalcification is identified in either breast. The current examinat ion is compared with previous examinations including December 2017 and there has been no gross interva l change in appearance in comparison with the prior studies. IMPRESSION: No specific evidence of malignancy at this time. Routine screening examinations are suggested at yea rly intervals in this age group according to the ACS ACR guidelines. BI-RADS Category 1 - Negative Breast Density - Category C - Heterogeneously dense
== END 2021-05-19 01:32 ==
PROVIDERS: PCP Physician Assistant Medical; Visit Provider Physician Assistant
DX: Z12.31 Encounter for screening mammogram for malignant neoplasm of breast (principal); R92.8 Other abnormal and inconclusive findings on diagnostic imaging of breast
CPT/HCPCS: 77063; 77067

== ENCOUNTER 2021-05-25 00:29 | Outpatient (CLI) | payer MEDICARE, OTHER, SELFPAY ==
--- NOTE | 2021-05-25 10:00 | DI.US_ITS ---
Exam(s) US BREAST LT COMPLETE US BREAST RT COMPLETE EXAM: US BREAST LT COMPLETE CLINICAL HISTORY: INCONCLUSIVE MAMMOGRAM, R92.2; HETEROGENEOUSLY DENSE BREAST CATEGORY C TECHNIQUE: Bilateral whole breast ultrasound.. COMPARISON: MG MG MAMMO SCREENING from 05/19/2021 US US BREAST RT COMPLETE from 05/25/2021 FINDINGS: No solid or cystic masses, hypoechoic foci, areas of abnormal shadowing, or areas of skin thickening. IMPRESSION: No sonographically suspicious finding. BI-RADS Category 1 - Negative Annual screening mammography recommended. DATA REPOSITORY:
== END 2021-05-25 00:49 ==
PROVIDERS: PCP Physician Assistant Medical; Visit Provider Physician Assistant
DX: R92.2 Inconclusive mammogram (principal); N64.89 Other specified disorders of breast
CPT/HCPCS: 76642; 96523

== ENCOUNTER 2021-05-25 00:53 | Outpatient (RCR) | payer MEDICARE, OTHER, SELFPAY ==
[2021-05-25] MEDS: Heparin 500 UNITS/5 ML SYRINGE IV (11:11)
[2021-05-25] MEDS: Normal Saline Flush 10 ML SYR IVP (11:11)
== END 2021-06-10 23:59 | disposition home or self-care (01) ==
LOC: INF 00:53
PROVIDERS: PCP Physician Assistant Medical; Visit Provider Obstetrics & Gynecology Gynecologic Oncology
DX: Z45.2 Encounter for adjustment and management of vascular access device (principal)
CPT/HCPCS: 96523

== ENCOUNTER 2021-06-23 02:18 | Outpatient (RCR) | payer MEDICARE, OTHER, SELFPAY ==
[2021-06-23] MEDS: Normal Saline Flush 10 ML SYR IVP (14:16)
[2021-06-23] MEDS: Heparin 500 UNITS/5 ML SYRINGE IV (14:16)
[2021-06-24 10:50] LABS: CA 125 8 U/mL (<30)
== END 2021-07-10 23:59 | disposition home or self-care (01) ==
LOC: INF 02:18
PROVIDERS: PCP Physician Assistant Medical; Visit Provider Obstetrics & Gynecology Gynecologic Oncology
DX: C56.1 Malignant neoplasm of right ovary (principal); Z45.2 Encounter for adjustment and management of vascular access device
CPT/HCPCS: 36591; 86304

== ENCOUNTER 2021-07-21 00:55 | Outpatient (RCR) | payer MEDICARE, OTHER, SELFPAY ==
[2021-07-21] MEDS: Normal Saline Flush 10 ML SYR IVP (13:59)
[2021-07-21] MEDS: Heparin 500 UNITS/5 ML SYRINGE IV (13:59)
[2021-07-22 10:28] LABS: CA 125 7 U/mL (<30)
== END 2021-08-10 23:59 | disposition home or self-care (01) ==
LOC: INF 00:55
PROVIDERS: Nurse Practitioner Family; PCP Physician Assistant Medical; Visit Provider Obstetrics & Gynecology Gynecologic Oncology
DX: C56.1 Malignant neoplasm of right ovary (principal); Z45.2 Encounter for adjustment and management of vascular access device
CPT/HCPCS: 36591; 86304

== ENCOUNTER 2021-08-19 02:09 | Outpatient (RCR) | payer MEDICARE, OTHER, SELFPAY ==
[2021-08-19] MEDS: Heparin 500 UNITS/5 ML SYRINGE IV (14:02)
[2021-08-19] MEDS: Normal Saline Flush 10 ML SYR IVP (14:02)
== END 2021-09-09 23:59 | disposition home or self-care (01) ==
LOC: INF 02:09
PROVIDERS: PCP Physician Assistant Medical; Visit Provider Obstetrics & Gynecology Gynecologic Oncology
DX: Z45.2 Encounter for adjustment and management of vascular access device (principal)
CPT/HCPCS: 96523

== ENCOUNTER 2021-10-14 02:45 | Outpatient (RCR) | payer MEDICARE, OTHER, SELFPAY ==
[2021-10-14] MEDS: Heparin 500 UNITS/5 ML SYRINGE IV (14:03)
[2021-10-14] MEDS: Normal Saline Flush 10 ML SYR IVP (14:03)
[2021-10-15 09:50] LABS: CA 125 7 U/mL (<30)
== END 2021-11-10 23:59 | disposition home or self-care (01) ==
LOC: INF 02:45
PROVIDERS: Nurse Practitioner Family; PCP Physician Assistant Medical; Visit Provider Obstetrics & Gynecology Gynecologic Oncology
DX: C56.1 Malignant neoplasm of right ovary (principal); Z45.2 Encounter for adjustment and management of vascular access device
CPT/HCPCS: 36591; 86304

== ENCOUNTER → 2021-11-11 03:24 | Outpatient (CLI) | payer MEDICARE, OTHER, SELFPAY ==
--- NOTE | 2021-11-11 | DI.RAD_ITS ---
Exam(s) XR KNEE LT 3V AP,LAT,JAZLYN EXAM: XR KNEE LT 3V AP,LAT,JAZLYN CLINICAL HISTORY: OSTEOARTHRITIS. TECHNIQUE: 2D digital imaging was performed. COMPARISON: CR XR KNEE RT 3V AP,LAT,JAZLYN from 11/11/2021 FINDINGS: 3 views Significant narrowing of the medial compartment seen on the weight-bearing view, almost [id number] and there also marginal osteophytes. Lateral compartment unremarkable. Patello femoral compartment appears unremarkable. No prominent joint effusion evident. Bone density normal. No osseous lesions IMPRESSION: DATA REPOSITORY: RADIATION DOSE DELIVERED:
--- NOTE | 2021-11-11 | DI.CT_ITS ---
Exam(s) CT CHEST/ABD/PEL W EXAM: CT CHEST/ABD/PEL W CLINICAL HISTORY: OVARIAN CANCER. TECHNIQUE: Imaging Protocol: Axial computed tomography images with coronal and sagittal reformatted images were created and reviewed CONTRAST MATERIAL: Intravenous: Omnipaque 350 Contrast volume:100 ml Oral: Yes COMPARISON: CT CT ABDOMEN PELVIS W from 11/23/2020 FINDINGS: CHEST: LUNGS: No confluent infiltrates nor pleural effusions evident. There are no ominous pulmonary nodule s.. No focal findings in the trachea and mainstem bronchi.. MEDIASTINUM: There is no hilar nor mediastinal adenopathy. Visualized thyroid unremarkable. CARDIAC: Heart size is normal. There is no pericardial effusion.Caliber of the thoracic aorta is wit hin normal limits. Distal tip of the right-sided Port-A-Cath is in the lower SVC at the SVC-RA junct ion. OSSEOUS: No significant osseous lesions.. ABDOMEN: There is no ascites. LIVER: There are no focal hepatic lesions nor dilatation of intrahepatic ducts. GALLBLADDER/BILIARY: No obvious gallbladder pathology. CBD is not dilated. PANCREAS: No evidence of pancreatic mass nor dilatation of the pancreatic duct. SPLEEN: Spleen is not enlarged. There are no intrasplenic lesions. Splenic and portal veins are prado nt. ADRENALS: There are no significant adrenal masses. KIDNEYS: No calculi nor hydronephrosis. No solid renal masses. No cysts evident. ABDOMINAL AORTA: Abdominal aorta is not enlarged. LYMPH NODES: There is no retroperitoneal nor paraaortic adenopathy. ABDOMINAL WALL: No evidence of significant anterior abdominal wall nor inguinal hernia. GI: There is no evidence of bowel obstruction. PELVIS: LYMPH NODES: There is no intrapelvic nor inguinal adenopathy. GI: No evidence of appendicitis.No evidence of sigmoid diverticulitis. URINARY BLADDER: No calculi nor masses evident REPRODUCTIVE: Uterus surgically absent. Ovaries not seen presumed surgically absent. There are no a bnormal adnexal masses nor free fluid in the pelvis. No presacral abnormalities. OSSEOUS: No significant osseous lesions. IMPRESSION: 1. No significant metastatic disease in the chest, abdomen, and pelvis. 2. No ascites, omental cake, nor lymphadenopathy in the abdomen and pelvis. 3. Uterus and ovaries are surgically absent. No abnormal pelvic masses evident. 4. No osseous lesions. RADIATION DOSE DELIVERED: 1,656.98mGy.cm Total DLP DATA REPOSITORY: All CT scans at this facility are submitted to the National Radiology Data Registry (NRDR) Dose Index Registry (DIR) with the [employer] (ACR). RADIATION OPTIMIZATION: All CT scans at this facility use at least one of these dose optimization te chniques: automated exposure control; mA and/or kV adjustment per patient size (includes targeted exa ms where dose is matched to clinical indication); or iterative reconstruction.
--- NOTE | 2021-11-11 | DI.RAD_ITS ---
Exam(s) XR KNEE RT 3V AP,LAT,JAZLYN EXAM: XR KNEE RT 3V AP,LAT,JAZLYN CLINICAL HISTORY: OSTEOARTHRITIS. TECHNIQUE: 2D digital imaging was performed. COMPARISON: No exams were available for comparison FINDINGS: 3 views There is [id number] narrowing of the medial compartment and marginal osteophytes. Milder degenerat gardenia changes in the lateral compartment. There are advanced degenerative changes in the patellofemora l compartment. There is a small-moderate size joint effusion. IMPRESSION: Degenerative changes as described above. More advanced than in the opposite-left knee. DATA REPOSITORY: RADIATION DOSE DELIVERED:
[2021-11-11] MEDS: Omnipaque 350 MG/ML 100 ML BTL IJ (13:49)
[2021-11-11] MEDS: Barium Sulfate 2% W/V-Creamy Vanilla Smoothie 450 ML BTL PO (13:50)
== END ==
PROVIDERS: PCP Physician Assistant Medical; Visit Provider Internal Medicine
DX: M25.561 Pain in right knee (principal); M25.562 Pain in left knee; M17.0 Bilateral primary osteoarthritis of knee; M25.461 Effusion, right knee; C56.1 Malignant neoplasm of right ovary; Z12.89 Encounter for screening for malignant neoplasm of other sites; Z90.710 Acquired absence of both cervix and uterus; Z90.722 Acquired absence of ovaries, bilateral
CPT/HCPCS: 36591; 73562; 74177; 80053; 80061; 80186; 83090; 86304; 71260; 84155; 84165; 84439; 84443; 85025; 86320; J3490

== ENCOUNTER 2021-11-11 04:42 | Outpatient (RCR) | payer MEDICARE, OTHER, SELFPAY ==
[2021-11-11] MEDS: Normal Saline Flush 10 ML SYR IVP (11:45)
[2021-11-11 12:52] LABS: Abs Immature Grans 0.01 10^3/uL (0.0-0.06); Absolute Basophil Count 0.02 10^3/uL (0.0-0.2); Absolute Eosinophil Count 0.05 10^3/uL (0.0-0.7); Absolute Lymphocyte Count 1.05 10^3/uL (1.2-3.4); Absolute Monocyte Count 0.26 10^3/uL (0.1-0.8); Absolute Neutrophil Count 2.64 10^3/uL (1.2-6.7); Basophils % 0.5; Eosinophils % 1.2; HCT 37.2 % (36.0-46.0); HGB 12.7 g/dL (11.2-15.7); Immature Grans % 0.2; Lymphocytes % 26.1; MCH 32.6 pg (27.0-33.0); MCHC 34.1 % (32.0-36.0); MCV 95 fL (80-95); MPV 8.9 fL (8.0-11.0); Monocytes % 6.5; Neutrophils % 65.5; Platelet Count 236 10^3/uL (130-400); RDW-SD 41.9 fL; WBC 4.03 10^3/uL (4.4-10.8)
[2021-11-11 13:16] LABS: ALT 21 U/L (14-59); AST 18 U/L (15-37); Albumin 3.8 g/dL (3.4-5.0); Alkaline Phosphatase 83 U/L (46-116); Anion Gap 8.2 mmol/L (3-11); BUN 15 mg/dL (7-18); Bilirubin, Total 0.5 mg/dL (0.2-1.0); CO2 29.8 mmol/L (21.0-32.0); CREATININE 0.9 mg/dL (0.55-1.02); Calcium 8.8 mg/dL (8.5-10.1); Calculated LDL 120 mg/dL (<100); Chloride 103 mmol/L (98-107); Cholesterol 211 mg/dL (<200); Estimated GFR 70.51 (mL/min/1.73m2); Glucose 100 mg/dL (74-106); HDL Cholesterol 75 mg/dL (40-60); Potassium 4.2 mmol/L (3.5-5.1); Sodium 141 mmol/L (136-145); TSH 1.33 uIU/mL (0.36-3.74); Total Protein 7.2 g/dL (6.4-8.2); Triglyceride 81 mg/dL (<150)
[2021-11-11] MEDS: Heparin 500 UNITS/5 ML SYRINGE IV (14:05)
[2021-11-12 08:30] LABS: CA 125 6 U/mL (<30)
[2021-11-12 14:29] LABS: Albumin 60.5 % (55.8-66.1); Albumin g/dL 4.1 g/dL (3.6-5.2); Immunotyping, Serum (See Note); Total Protein 6.7 g/dL (6.3-8.2)
[2021-11-18 12:41] LABS: Methylmalonic Acid 0.45 nmol/mL (<=0.40)
== END 2021-12-10 23:59 | disposition home or self-care (01) ==
LOC: INF 04:42
PROVIDERS: Internal Medicine; PCP Physician Assistant Medical; Visit Provider Obstetrics & Gynecology Gynecologic Oncology
DX: C56.9 Malignant neoplasm of unspecified ovary (principal); G90.09 Other idiopathic peripheral autonomic neuropathy; Z45.2 Encounter for adjustment and management of vascular access device
CPT/HCPCS: 36591; 80053; 80061; 80186; 83090; 86304; 84155; 84165; 84439; 84443; 85025; 86320

== ENCOUNTER 2021-12-20 02:16 | Outpatient (RCR) | payer MEDICARE, OTHER, SELFPAY ==
[2021-12-20] MEDS: Heparin 500 UNITS/5 ML SYRINGE IV (14:00)
[2021-12-20] MEDS: Normal Saline Flush 10 ML SYR IVP (14:01)
== END 2022-01-10 23:59 | disposition home or self-care (01) ==
LOC: INF 02:16
PROVIDERS: PCP Physician Assistant Medical; Visit Provider Obstetrics & Gynecology Gynecologic Oncology
DX: Z45.2 Encounter for adjustment and management of vascular access device (principal)
CPT/HCPCS: 96523

== ENCOUNTER 2022-01-17 02:28 | Outpatient (RCR) | payer MEDICARE, SELFPAY ==
[2022-01-17] MEDS: Normal Saline Flush 10 ML SYR IVP (13:00)
[2022-01-17] MEDS: Heparin 500 UNITS/5 ML SYRINGE IV (13:02)
[2022-01-18 09:36] LABS: CA 125 8 U/mL (<30)
== END 2022-02-09 23:59 | disposition home or self-care (01) ==
LOC: INF 02:28
PROVIDERS: PCP Physician Assistant Medical; Visit Provider Obstetrics & Gynecology
DX: C56.1 Malignant neoplasm of right ovary (principal); Z45.2 Encounter for adjustment and management of vascular access device
CPT/HCPCS: 36591; 86304

== ENCOUNTER 2022-02-16 03:17 | Outpatient (RCR) | payer MEDICARE, SELFPAY ==
[2022-02-16] MEDS: Normal Saline Flush 10 ML SYR IVP (12:58)
[2022-02-16] MEDS: Heparin 500 UNITS/5 ML SYRINGE IV (12:59)
== END 2022-03-12 23:59 | disposition home or self-care (01) ==
LOC: INF 03:17
PROVIDERS: PCP Physician Assistant Medical; Visit Provider Obstetrics & Gynecology
DX: Z45.2 Encounter for adjustment and management of vascular access device (principal)
CPT/HCPCS: 96523

== ENCOUNTER 2022-04-06 08:54 | Outpatient (REF) | payer MEDICARE, SELFPAY ==
--- OUTSIDE RECORDS SUMMARY | 2022-04-07 08:56 | XMS_ITS | Continuity of Care Document ---
:1955 Author Organization [facility] Ambulatory Clinics Address [address] [place] [address] Care Team Providers Name Role Phone WELLINGTON DE LA VEGA Primary Care Physician Encounter [facility] NBR [id number] Date(s): 12/20/21 - 12/20/21 [facility] [address] [place] [address]- [place] Social History Social History Type Response Sex Female Patient Care team information PersonnelName: WELLINGTON DE LA VEGA Address: Address: [address] [place] [phone]- [place]
== END 2022-04-06 08:55 | disposition home or self-care (01) ==
LOC: LBN 08:54
PROVIDERS: PCP Physician Assistant Medical; Visit Provider Internal Medicine
DX: Z87.19 Personal history of other diseases of the digestive system (principal)
CPT/HCPCS: 82272

== ENCOUNTER 2022-04-07 01:20 | Outpatient (CLI) | payer MEDICARE, SELFPAY ==
--- NOTE | 2022-04-07 | DI.CT_ITS ---
Exam(s) CT CHEST/ABD/PEL W EXAM: CT CHEST/ABD/PEL W CLINICAL HISTORY: F/U OVARIAN CA. TECHNIQUE: Imaging Protocol: Axial computed tomography images with coronal and sagittal reformatted images were created and reviewed CONTRAST MATERIAL: Intravenous: Omnipaque 350 Contrast volume:100 ml Oral: Yes. Oral contrast was also administered for bowel opacification. COMPARISON: CT CT CHEST/ABD/PEL W from 11/11/2021 FINDINGS: CHEST: LUNGS: No pulmonary infiltrates nor pleural effusions. There are no ominous pulmonary nodules.. MEDIASTINUM: There is no hilar nor mediastinal adenopathy. Visualized thyroid unremarkable. CARDIAC: Heart size is normal. There is no pericardial effusion.Caliber of the thoracic aorta is wit hin normal limits. Distal tip of the Port-A-Cath is in the upper right atrium. OSSEOUS: No significant osseous lesions.No fractures.. ABDOMEN: There is no ascites. LIVER: There are no focal hepatic lesions nor dilatation of intrahepatic ducts. GALLBLADDER/BILIARY: No obvious gallbladder pathology. CBD is not dilated. PANCREAS: No evidence of pancreatic mass nor dilatation of the pancreatic duct. SPLEEN: Spleen is not enlarged. There are no intrasplenic lesions. Splenic and portal veins are prado nt. ADRENALS: There are no significant adrenal masses. KIDNEYS: No calculi nor hydronephrosis. No solid renal masses. No cysts evident. ABDOMINAL AORTA: Abdominal aorta is not enlarged. Retroaortic left renal vein incidentally noted. LYMPH NODES: There is no retroperitoneal nor paraaortic adenopathy. ABDOMINAL WALL: No evidence of significant anterior abdominal wall nor inguinal hernia. GI: There is no evidence of bowel obstruction. PELVIS: LYMPH NODES: There is no intrapelvic nor inguinal adenopathy. GI: No evidence of appendicitis.There is sigmoid diverticulosis. No evidence of obvious acute divert iculitis.There is long segment circumferential mural thickening of the rectosigmoid which is possibly related to the chronic diverticular disease. However cannot exclude colitis pattern. URINARY BLADDER: No calculi nor masses evident REPRODUCTIVE: Uterus and ovaries again noted be surgically absent. There are no abnormal adnexal mas ses. No free fluid. OSSEOUS: No significant osseous lesions. No fractures. IMPRESSION: 1. There is no evidence of significant metastatic disease in the chest, abdomen, and pelvis. No evid ence of omental cake, lymphadenopathy, or ascites. 2. Uterus and ovaries are again noted be surgically absent. There are no new obvious abnormal intrap elvic findings. 3. Sigmoid diverticulosis. Although there is no acute diverticulitis, there is long segment circumfe rential thickening of the sigmoid wall which may be related to muscular hypertrophy from the divertic ulosis but does appear more evident than on the prior CT scan. This can be further study with colono scopy. 4. There are no significant osseous lesions evident. RADIATION DOSE DELIVERED: 1,836.3mGy.cm Total DLP DATA REPOSITORY: All CT scans at this facility are submitted to the National Radiology Data Registry (NRDR) Dose Index Registry (DIR) with the [employer] (ACR). RADIATION OPTIMIZATION: All CT scans at this facility use at least one of these dose optimization te chniques: automated exposure control; mA and/or kV adjustment per patient size (includes targeted exa ms where dose is matched to clinical indication); or iterative reconstruction.
[2022-04-07 11:40] LABS: ALT 19 U/L (14-59); AST 19 U/L (15-37); Albumin 4.3 g/dL (3.4-5.0); Alkaline Phosphatase 105 U/L (46-116); Anion Gap 9.8 mmol/L (3-11); BUN 10 mg/dL (7-18); Bilirubin, Total 0.5 mg/dL (0.2-1.0); CO2 27.2 mmol/L (21.0-32.0); Chloride 102 mmol/L (98-107); Estimated GFR 62.13 (mL/min/1.73m2); Glucose 113 mg/dL (74-106); Potassium 3.8 mmol/L (3.5-5.1); Sodium 139 mmol/L (136-145); Total Protein 7.5 g/dL (6.4-8.2)
[2022-04-07] MEDS: Omnipaque 350 MG/ML 500 ML BTL-Imaging package 100 ML IJ (12:20)
[2022-04-07] MEDS: Normal Saline - Diluent 50 ML VIAL IJ (12:21)
== END 2022-04-07 01:40 ==
LOC: DI 01:21
PROVIDERS: PCP Physician Assistant Medical; Visit Provider Internal Medicine
DX: K57.30 Diverticulosis of large intestine without perforation or abscess without bleeding (principal)
CPT/HCPCS: 74177; 80053; 96523; 71260; 82565

== ENCOUNTER 2022-04-07 02:06 | Outpatient (RCR) | payer MEDICARE, SELFPAY ==
[2022-03-16] MEDS: Normal Saline Flush 10 ML SYR IVP (12:58)
[2022-03-16] MEDS: Heparin 500 UNITS/5 ML SYRINGE IV (12:58)
[2022-04-07] MEDS: Normal Saline Flush 10 ML SYR IVP (08:09)
[2022-04-07] MEDS: Heparin 500 UNITS/5 ML SYRINGE IV (08:09)
== END 2022-04-12 23:59 | disposition home or self-care (01) ==
LOC: INF 02:06
PROVIDERS: PCP Physician Assistant Medical; Visit Provider Obstetrics & Gynecology
DX: D64.9 Anemia, unspecified (principal)
CPT/HCPCS: 96523

== ENCOUNTER 2022-05-12 02:53 | Outpatient (RCR) | payer MEDICARE, SELFPAY ==
[2022-05-12] MEDS: Normal Saline Flush 10 ML SYR IVP (13:04)
[2022-05-12] MEDS: Heparin 500 UNITS/5 ML SYRINGE IV (13:04)
[2022-05-13 09:03] LABS: CA 125 7 U/mL (<30)
== END 2022-06-10 23:59 | disposition home or self-care (01) ==
LOC: INF 02:53
PROVIDERS: PCP Physician Assistant Medical; Visit Provider Obstetrics & Gynecology
DX: C56.2 Malignant neoplasm of left ovary (principal); Z45.2 Encounter for adjustment and management of vascular access device
CPT/HCPCS: 36591; 86304

== ENCOUNTER 2022-05-20 00:48 | Outpatient (CLI) | payer MEDICARE, SELFPAY ==
--- NOTE | 2022-05-20 10:45 | DI.MAMMO_ITS ---
Exam(s) MG MAMMO SCREENING 60 MIN DUR EXAM: MG MAMMO SCREENING 60 MIN DUR CLINICAL HISTORY: SCREENING,H/O OVARIAN CA TECHNIQUE: Bilateral full field digital CC and MLO mammographic images were obtained with 3D tomosyn thesis and utilizing computer aided detection (CAD). COMPARISON: Available for comparison. FINDINGS: Masses/Architectural Distortion: None seen. Microcalcifications: No suspicious pleomorphic-type are seen. Skin Thickening/Nipple Retraction: None. IMPRESSION: 1. No significant interval change with no specific features of malignancy noted. 2. Unless there is more urgent need, screening mammography is recommended, as per [employer] guidelines. BI-RADS Category 1 - Negative Breast Density - Category C - Heterogeneously dense Breast density category C or D implies that the patient has dense breast tissue. Dense breast tissue is very common and is not abnormal but dense breast tissue can make it harder to find cancer on a ma mmogram. Also, dense breast tissue may increase their breast cancer risk. This information about the result of the mammogram report was provided to the patient to raise their awareness. Use this report when you speak with the patient about their risks for breast cancer, which includes their family hist ory. At that time, you may recommend for more screening tests (Ultrasound or MRI) as they might be us eful based on their risk. A negative radiographic report should not delay biopsy if a dominant or clinically suspicious mass is present. Up to ten percent of cancers are not identified on mammography. A negative report may reinforce clinical impression. Adenosis and dense breasts may obscure an underlying neoplasm. False positive reports average 6 to 10%. Patient will receive a letter notifying them of these results.
== END 2022-05-20 01:08 ==
LOC: DI 00:48
PROVIDERS: PCP Physician Assistant Medical; Visit Provider Internal Medicine
DX: Z12.31 Encounter for screening mammogram for malignant neoplasm of breast (principal); Z85.43 Personal history of malignant neoplasm of ovary
CPT/HCPCS: 77063; 77067

== ENCOUNTER 2022-09-28 01:51 | Outpatient (CLI) | payer MEDICARE, SELFPAY ==
--- NOTE | 2022-09-28 | DI.CT_ITS ---
Exam(s) CT CHEST/ABD/PEL W EXAM: CT CHEST/ABD/PEL W CLINICAL HISTORY: F/U OVARIAN CAC56.9. TECHNIQUE: Imaging Protocol: Axial computed tomography images with coronal and sagittal reformatted images were created and reviewed CONTRAST MATERIAL: Intravenous: Omnipaque 350 Contrast volume:100 ml Oral: yes / COMPARISON: CT CT CHEST/ABD/PEL W from 04/07/2022 FINDINGS: CHEST: Tracheobronchial tree: Patent where visualized. Pulmonary parenchyma: No consolidation or dominant measurable mass. No pulmonary nodules. Pleura: No effusion or pneumothorax. Lymph nodes: Within normal limits. Aorta: Thoracic portion non-dilated. Heart: Small size. No pallor cardial effusion. Bones: scoliosis and degenerative changes peer no lytic or blastic lesions.No compression fractures. Moderate size hiatal hernia. ABDOMEN: Liver: Normal density. No measurable mass. Gallbladder and biliary tract: No radiodense calculus or dilation. Pancreas: Normal density, no abnormal calcifications or inflammatory process. Spleen: Normal. Kidneys: Normal size, contour and axis. No radiodense stones or obstructive uropathy. No suspicious m asses seen. Adrenal glands: No masses seen. Aorta: Abdominal portion non-dilated. Lymph nodes: Within normal limits. Soft tissues: Unremarkable. PELVIS: Bladder: Symmetric distention, no gross wall thickening. Bowel: Mild sigmoid diverticulosis. Contrast material in colon. Sigmoid region not well distended w ith contrast. Small bowel is unremarkable Peritoneal cavity: No ascites, collection or mesenteric inflammatory response. Bones: Scoliosis and degenerative changes. Reproductive organs: Status post hysterectomy and oophorectomy. IMPRESSION: No evidence of mass or metastatic disease in the chest, abdomen or pelvis.. RADIATION DOSE DELIVERED: Total DLP DATA REPOSITORY: All CT scans at this facility are submitted to the National Radiology Data Registry (NRDR) Dose Index Registry (DIR) with the [employer] (ACR). RADIATION OPTIMIZATION: All CT scans at this facility use at least one of these dose optimization te chniques: automated exposure control; mA and/or kV adjustment per patient size (includes targeted exa ms where dose is matched to clinical indication); or iterative reconstruction.
[2022-09-28 08:33] LABS: Abs Immature Grans 0.01 10^3/uL (0.0-0.06); Absolute Basophil Count 0.03 10^3/uL (0.0-0.2); Absolute Eosinophil Count 0.09 10^3/uL (0.0-0.7); Absolute Lymphocyte Count 0.99 10^3/uL (1.2-3.4); Absolute Monocyte Count 0.31 10^3/uL (0.1-0.8); Absolute Neutrophil Count 3.14 10^3/uL (1.2-6.7); Basophils % 0.7; HCT 42.3 % (36.0-46.0); HGB 14.4 g/dL (11.2-15.7); Immature Grans % 0.2; Lymphocytes % 21.7; MCH 32.4 pg (27.0-33.0); MCV 95 fL (80-95); MPV 9.1 fL (8.0-11.0); Monocytes % 6.8; Neutrophils % 68.6; Platelet Count 240 10^3/uL (130-400); RBC 4.45 10^6/uL (3.93-5.22); RDW-SD 41.7 fL; WBC 4.57 10^3/uL (4.4-10.8)
[2022-09-28 08:56] LABS: ALT 15 U/L (14-59); AST 13 U/L (15-37); Albumin 3.9 g/dL (3.4-5.0); Alkaline Phosphatase 107 U/L (46-116); Anion Gap 7.5 mmol/L (3-11); BUN 12 mg/dL (7-18); Bilirubin, Total 0.7 mg/dL (0.2-1.0); CO2 30.5 mmol/L (21.0-32.0); CREATININE 1.1 mg/dL (0.55-1.02); Calcium 9.1 mg/dL (8.5-10.1); Chloride 103 mmol/L (98-107); Estimated GFR 55.07 (mL/min/1.73m2); Glucose 124 mg/dL (74-106); Potassium 3.8 mmol/L (3.5-5.1); Sodium 141 mmol/L (136-145); Total Protein 7.3 g/dL (6.4-8.2)
[2022-09-28] MEDS: Normal Saline - Diluent 50 ML VIAL IJ (09:56)
[2022-09-28] MEDS: Omnipaque 350 MG/ML 100 ML BTL IJ (09:56)
[2022-09-28] MEDS: Barium Sulfate 2% W/V-Berry Smoothie 450 ML BTL PO (10:12)
[2022-09-29 09:14] LABS: CA 125 12 U/mL (<30)
[2022-10-01 10:54] LABS: Methylmalonic Acid 0.13 nmol/mL (<=0.40)
== END 2022-09-28 02:11 ==
LOC: DI 01:52
PROVIDERS: PCP Physician Assistant Medical; Visit Provider Internal Medicine
DX: D64.9 Anemia, unspecified (principal); C56.9 Malignant neoplasm of unspecified ovary
CPT/HCPCS: 36415; 74177; 80053; 80186; 83090; 86304; 71260; 85025; J3490

== ENCOUNTER 2022-12-14 03:24 | Outpatient (CLI) | payer MEDICARE, SELFPAY ==
[2022-12-14 13:49] LABS: ALT 29 U/L (14-59); AST 29 U/L (15-37); Albumin 3.7 g/dL (3.4-5.0); Alkaline Phosphatase 109 U/L (46-116); Amylase 57 U/L (25-115); Anion Gap 5.2 mmol/L (3-11); BUN 8 mg/dL (7-18); Bilirubin, Total 0.6 mg/dL (0.2-1.0); CO2 29.8 mmol/L (21.0-32.0); CREATININE 0.9 mg/dL (0.55-1.02); Calcium 9.3 mg/dL (8.5-10.1); Chloride 104 mmol/L (98-107); Estimated GFR 70.07 (mL/min/1.73m2); Glucose 99 mg/dL (74-106); Lipase 24 U/L (16-77); Potassium 4.1 mmol/L (3.5-5.1); Sodium 139 mmol/L (136-145); Total Protein 7.1 g/dL (6.4-8.2)
[2022-12-14 13:50] LABS: Hemoglobin A1C 5.5 % (<5.7)
== END 2022-12-14 03:25 | disposition home or self-care (01) ==
LOC: LBO 03:24
PROVIDERS: PCP Physician Assistant Medical; Visit Provider Internal Medicine
DX: R73.9 Hyperglycemia, unspecified (principal); R19.7 Diarrhea, unspecified; R11.10 Vomiting, unspecified
CPT/HCPCS: 36415; 80053; 83690; 82150; 83036

== ENCOUNTER 2022-12-16 16:23 | Outpatient (REF) | payer MEDICARE, SELFPAY ==
[2022-12-16 17:32] LABS: C Diff PCR Negative (Negative)
[2022-12-17 11:01] LABS: Campylobacter PCR Negative (Negative); Salmonella PCR Negative (Negative); Shiga Toxin PCR Negative (Negative); Shigella/Enteroinvasive Ecoli Negative (Negative)
== END 2022-12-16 16:24 | disposition home or self-care (01) ==
LOC: LBN 16:23
PROVIDERS: PCP Physician Assistant Medical; Visit Provider Internal Medicine
DX: R19.7 Diarrhea, unspecified (principal); R11.10 Vomiting, unspecified; R73.9 Hyperglycemia, unspecified
CPT/HCPCS: 87493; 87505; 82272; 83630; 87177

== ENCOUNTER → 2023-02-08 02:10 | Outpatient (CLI) | payer MEDICARE, SELFPAY ==
--- NOTE | 2023-02-08 | DI.US_ITS ---
Exam(s) US ABDOMEN LIMITED EXAM: US ABDOMEN LIMITED CLINICAL HISTORY: ABD PAIN, PRE KASHIF SCAN TECHNIQUE: Ultrasound abdomen performed using standard protocol. COMPARISON: US US PELVIS from 11/06/[address] CHEST/ABD/PEL W from 09/28/2022 FINDINGS: PANCREAS: Normal where visualized. LIVER: Normal. Hepatopedal flow in the Portal Vein. The liver measures in 13.7 cm length. GALLBLADDER: No evidence of cholelithiasis. No evidence of wall thickening. No pericholecystic fluid identified. BILIARY SYSTEM: Common bile duct measures < 7 mm. No intrahepatic biliary ductal dilation. GALLEGO'S SIGN: Negative. RIGHT KIDNEY: Kidney is normal in size. No evidence of renal calculi. No evidence of hydronephrosis. No renal mass or cyst identified. ASCITES: None seen. IMPRESSION: Normal sonographic appearance of the upper abdomen. DATA REPOSITORY:
--- NOTE | 2023-02-08 | DI.NM_ITS ---
Exam(s) NM HEPATOBILIARY CCK GRP EXAM: NM HEPATOBILIARY CCK GRP CLINICAL HISTORY: POSTPRANDIAL NAUSEA, ABD PAIN. TECHNIQUE: Injected dose: 5 mCi Tc-99 mebrofenin Initial dynamic images: 60 minutes Post-Gallbladder fillin.2 mcg CCK intravenously. Addition images: According to protocol. COMPARISON: US US ABDOMEN LIMITED from 02/08/2023 FINDINGS: Normal hepatic transit time. Prompt excretion into the small bowel. Prompt excretion into the gallbladder. The gallbladder ejection fraction is 22 percent. (Normal gal lbladder ejection fraction greater than 40 percent). IMPRESSION: 1. Decreased gallbladder ejection fraction of 22 percent. This can be seen with gallbladder dyskines ia. SNM guidelines: Gallbladder visualization should be present by 3 hours. Delayed [id number] mccain sit beyond 60 min raises the suspicion for partial common bile duct (CBD) obstruction.
[2023-02-08] MEDS: Water,Injection,Sterile 10 ML VIAL IJ (12:01)
[2023-02-08] MEDS: Sincalide 5 MCG VIAL 1.2 MCG IJ (12:05)
== END ==
PROVIDERS: PCP Physician Assistant Medical; Visit Provider Internal Medicine
DX: K82.8 Other specified diseases of gallbladder (principal)
CPT/HCPCS: 78227; J2805; 76705

== ENCOUNTER → 2023-03-01 12:51 | Outpatient (BNVA) | payer MEDICARE, SELFPAY | PROVIDERS: PCP Internal Medicine; Referring Provider Internal Medicine; Visit Provider Surgery | DX: K82.9 Disease of gallbladder, unspecified (principal) | CPT/HCPCS: 99213 ==

== ENCOUNTER 2023-03-17 06:21 | Day surgery (SDC) | payer MEDICARE, SELFPAY ==
--- NOTE | 2023-03-16 15:40 | W.PM.DSUDISC ---
Date of service: 03/17/23 Time of Service: 08:32 Discharge Plan Disposition Patient Disposition: Home Condition: Good Discharge Details Reason For Visit: Laparoscopic cholecystectomy Attending Provider: Kamar Shields Primary Care Provider: Deedee Cruz Home Meds and New Rx's Prescriptions: New tramadol 50 mg tablet 50 mg PO Q8H PRNQty: 9 0RF Rx Instructions: Take 1 tablet by mouth up to every 8 hours if needed for severe pain. Continued sertraline [Zoloft] 100 mg tablet 100 mg PO DAILY folic acid 1 mg tablet 1 mg PO DAILY celecoxib [Celebrex] 200 mg capsule 200 mg PO BID PRN cyanocobalamin (vitamin B-12) 5,000 mcg capsule 5,000 mcg PO DAILY diphenoxylate-atropine [Lomotil] 2.5-0.025 mg tablet 1 tab PO Q6H PRN lisinopril 5 mg Tablet 5 mg PO DAILY gabapentin 600 mg tablet 600 mg PO QID Patient Comments: TAKE ONE TABLET BY MOUTH FOUR TIMES A DAY Discharge Instructions Instructions: Laparoscopic Cholecystectomy (DC) Additional Instructions: Dalia, we were able to remove your gallbladder today without any difficulty. Everything went very smoothly. Hopefully, this will provide some relief from the discomfort you have been experiencing. I provided a prescription for some tramadol if Tylenol and ibuprofen are insufficient to help with your pain. I would expect to have some bruising around the sites in the days to follow, so do not be alarmed if you notice that. If you notice the skin turning bright red or extremely painful though, please let us know. If you have any questions in the meantime, please do not hesitate to call, otherwise, we will see you in the office for your routine follow-up appointment. 1. Resume all of your medications. 2. Use heating pads and ice packs over the incisions as needed for pain. 3. Okay to use tylenol and ibuprofen over the counter as needed. Use [] as needed for more severe pain. 4. Leave bandage in place for 24 hours, then remove. 5. Shower with warm soapy water. Pat dry. Use a bandaid if needed to protect your clothing. 6. No soaking or tub baths until I see you in the office. 7. No heavy lifting until I see you in the office. 8. Call the office (or go directly to the emergency room after hours) if you notice any of the following: Develop chills (warm to touch), or if you have a thermometer and your temperature is above 101 Difficulty breathing or difficultly swallowing Persistent vomiting Any bleeding ? exceeding one tablespoon 9. Call your physician if the site where your intravenous was started becomes red, swollen, painful, and warm to touch. Remove Dressings/Wound Care:: 24 hours Diet:: As Tolerated Discharge Orders Discharge Orders: Discharge Order (Routine); Ordered 03/16/23 Ordered By: Kamar Shields DS: Diagnosis Discharge Diagnosis (1) Biliary dyskinesia: Status: Acute Asessment and Plan: Status postcholecystectomy; outpatient follow-up
--- NOTE | 2023-03-16 15:42 | ROE_ITS ---
Date of service: 03/17/23 Time of Service: 08:35 Operative Note Operative Note DATE OF PROCEDURE: 03/17/23 PRE-OP DIAGNOSIS: Biliary dyskinesia POST-OP DIAGNOSIS: same PROCEDURE: Laparoscopic cholecystectomy SURGEON: Kamar Shields COMMUNICATIONS SPECIALIST: Eun Sierra ANESTHESIA TYPE: General LMA/ETT Refer to Anesthesia Record ESTIMATED BLOOD LOSS: 25 PATHOLOGY: other (Gallbladder) COMPLICATIONS: None Patient was transported to: PACU Indications: Dalia is a 67-year-old woman with several months of abdominal discomfort. She underwent HIDA scan that demonstrated gallbladder ejection fraction of 22. We discussed the risks and benefits of laparoscopic cholecystectomy for biliary dyskinesia. Procedure Description: After satisfactory induction of general anesthesia, I prepped and draped the abdomen in usual fashion. Next, I began with a periumbilical incision. I dissected down to the fascia and elevated it with Danelle clamps. I incised it sharply. Next, I passed a 12 mm operating port in the umbilical site. I secured it to the fascia with 0 Vicryl stitches. I then insufflated the peritoneal cavity. Next I inserted a 5 mm 30 degree scope and examined the underlying viscera. There was no evidence of injury created upon entry. I then placed the patient in some reverse Trendelenburg and left side down positioning. Then, with the assistance of the laparoscope, I used local anesthetic to anesthetize the midepigastric and 2 right upper quadrant port sites. Under the vision of the laparoscope, I passed 3 more 5 mm ports. I then grasped the gallbladder fundus and elevated cephalad. With the assistance of indocyanine green imaging, I began by dissecting the gallbladder infundibulum. I worked in a lateral to medial fashion. Once I skeletonized the cystic duct and cystic artery, with a satisfactory critical view of safety, I doubly clipped and divided them. I then used electrocautery to dissect the gallbladder off the gallbladder fossa. I passed the gallbladder into an Endo Catch bag and removed it by way of the umbilical site. I examined the surgical field. It was hemost atic. I then removed the 5 mm ports under the vision of the laparoscope. Finally, I removed the umbilical port site and closed the fascia with Vicryl stitches. Sites were irrigated, and the skin was closed with subcuticular stitches. Bandages were applied, patient was awakened from anesthesia, and transferred to the recovery unit.
[2023-03-17] VITALS (10 sets, daily range): BP systolic 124–182; BP diastolic 39–77; PULSE 90–121; RESP 11–17; TEMP 36.3–36.6; O2SAT 94–100; BMI 29.2
[2023-03-17] MEDS: Indocyanine green 25 MG VIAL 5 MG IVP (06:48)
[2023-03-17] MEDS: Lactated Ringers 1,000 ML 80 ML IV (06:49)
[2023-03-17] MEDS: Acetaminophen 500 MG TAB 1000 MG PO (06:49)
[2023-03-17] MEDS: Gabapentin 300 MG CAP 600 MG PO (06:49)
--- NOTE | 2023-03-17 06:53 | W.ANESPRE ---
General Info Date of Service Date Performed: 03/17/23 Height: 5 ft 5 in Weight: 79.832 kg Body Mass Index (BMI): 29.2 Surgical Procedure: Operation Date: 03/17/23 07:40 Proposed Procedure Side Surgeon p Cholecystectomy Laparoscopic Kamar Shields MD Meds Allergies and Home Medications Allergies Allergy/AdvReac Type Severity Reaction Status Date / Time Fish Containing Products AdvReac Severe vomiting Verified 03/17/23 06:31 Pork/Porcine Containing AdvReac Severe vomiting Verified 03/17/23 06:31 Products Home Medication Medication Instructions Recorded lisinopril 5 mg tablet 5 mg PO DAILY 04/03/18 gabapentin 600 mg tablet 600 mg PO QID 11/23/20 celecoxib 200 mg capsule (Celebrex) 200 mg PO BID PRN 03/01/23 cyanocobalamin (vitamin B-12) 5,000 mcg PO DAILY 03/01/23 5,000 mcg capsule diphenoxylate-atropine 2.5 1 tab PO Q6H PRN 03/01/23 mg-0.025 mg tablet (Lomotil) folic acid 1 mg tablet 1 mg PO DAILY 03/01/23 sertraline 100 mg tablet (Zoloft) 100 mg PO DAILY 03/01/23 Current Visit Medications: Current Medications Generic Name Dose Route Start Last Admin Trade Name Freq PRN Reason Stop Dose Admin Hydromorphone HCl 0.2 mg 03/16/23 15:43 Hydromorphone 2 Mg/Ml Syr IVP 04/15/23 15:42 Q1H PRN PRN Cefazolin Sodium/Dextrose 2 gm in 50 mls @ 100 mls/hr 03/17/23 06:00 Ancef Duplex IVPB 04/16/23 05:59 PREOP RADHA Ringer's Solution 1,000 mls @ 80 mls/hr 03/17/23 06:30 03/17/23 06:49 IV 04/16/23 06:17 80 mls/hr INFUSION RADHA Administration IV Miscellaneous Supplies 1 each 03/17/23 06:17 Iv Access IV 04/16/23 06:16 DIRECTED RADHA Indocyanine Green 5 mg 03/16/23 15:45 03/17/23 06:48 Indocyanine Green 25 Mg Vial IVP 04/15/23 15:44 5 mg DIRECTED RADHA Administration Sodium Chloride 0 ml 03/17/23 06:17 Normal Saline Flush 10 Ml Syr IVP 04/16/23 06:16 PRN PRN Sodium Chloride 0 ml 03/17/23 08:30 Normal Saline Flush 10 Ml Syr IVP 04/16/23 08:29 BID RADHA Sodium Chloride 0 ml 03/17/23 06:17 Normal Saline 10 Ml Vial IJ 04/16/23 06:16 DIRECTED PRN Tramadol HCl 100 mg 03/16/23 15:43 Tramadol 50 Mg Tab PO 04/15/23 15:42 Q6H PRN PRN Pain PFSH Active Problems Active Problems: Problem Status Onset Code Biliary dyskinesia K82.8 Nausea & vomiting R11.2 Diarrhea R19.7 Depression F32.A Essential hypertension I10 Chronic cholecystitis K81.1 Post-operative complication T81.9XXA Acute urinary retention R33.8 Hydronephrosis N13.30 H/O pelvic mass Z87.898 Status post cataract extraction and insertion of intraocular lens of right eye 04/06/18 Z98.41, Z96.1 Medical History Medical History (Updated 03/16/23 @ 15:40 by Kamar Shields MD) History of TMJ disorder Polyneuropathy Malignant neoplasm of unspecified ovary Cortical cataract of left eye Cortical cataract of right eye Surgical History Surgical History (Updated 03/17/23 @ 07:02 by Louise Velasquez RN) History of hysterectomy History of arthroscopic knee surgery Status post cataract extraction and insertion of intraocular lens of left eye Tobacco Smoking/Tobacco Use Status: Never Alcohol Alcohol Intake: never Substance Use Substance use: Never Substance use type: does not use Vital Signs and Lab Results Lab Results Blood Type / Crossmatch: No Data to Display Complete Blood Count: No Data to Display Complete Metabolic Panel: No Data to Display Liver Function Panel: No Data to Display Coagulation Panel: No Data to Display Cardiac Panel: No Data to Display Arterial Blood Gas: No Data to Display Venous Blood Gas: No Data to Display Pancreas Panel: No Data to Display Thyroid Panel: No Data to Display Infectious Disease: No Data to Display Blood Cultures: No Data to Display Toxicology Panel: No Data to Display Anesthesia Assessment and Plan Anesthesia History Personal History: No History of Anesthesia Complications Family History: No Family History of Anesthesia Complications Exercise Tolerance Exercise Tolerance: Metabolic Equivalents>4 Pertinent Negatives Pertinent Negatives: No Symptoms of GERD Cardiac & Pulmonary Exam Cardiac Exam: Normal S1/S2 Heart Sounds Pulmonary Exam: Clear Bilateral Breath Sounds Implantable Cardiac Device Does patient have a Pacemaker or an ICD?: No Airway Exam Known Difficult Airway: No Mallampati Class: 2 Mouth Opening: Normal (> 3cm) Thyromental Distance: Greater than 3 cm Neck Range of Motion: Full ROM Neck Circumference: Normal Teeth Condition: Other (Complex jaw alignment) ASA Classification ASA Score: ASA 2 Emergency Case?: No NPO Status NPO Status: NPO Clears >2 hours, Solids >8 hours Anesthesia Plan Resuscitation Status: Full Code Anesthesia Technique: General Anesthesia Airway Planned: Endotracheal Tube Monitors Used: Standard Monitors
[2023-03-17] MEDS: ceFAZolin 2 GM/50 ML BAG IVPB (07:35)
[2023-03-17] MEDS: Bupivacaine 0.25% Pres-Free 30 ML VIAL (08:27)
--- NOTE | 2023-03-17 08:27 | GB_PTH ---
PATIENT: Dalia Mcfarlane LOC: [facility] U#:[id number] AGE/SX: 67/F ROOM: RE03/17/[address]: Kamar Shields MD : 1955 BED: DIS: 03/17/2023 SPEC #: [id number] RECD: 03/17/23 12:42 STATUS: TALI REQ #: [id number] RAHEL: 03/17/23 08:[address]: Kamar Shields DEPT: Surgical Specimen RECD BY: Vannessa Kimbrough ENTERED: 03/17/23 12:42 SP TYPE: GB OTHR DR: Deedee Cruz Tissues: 1 - GALLBLADDER Procedures: GROSS AND MICRO LEVEL 3 Comments: [id number]
[2023-03-17] MEDS: HYDROmorphone 2 MG/ML SYR IVP ×2 (09:14→09:37)
[2023-03-17] MEDS: Normal Saline 10 ML VIAL IJ ×2 (09:14→09:18)
--- NOTE | 2023-03-17 10:24 | W.ANESPOSTOP ---
Postoperative Evaluation Date, Time and Location Date Performed: 03/17/23 Time Performed: 10:24 Patient Location: Day Surgery Unit Vital Signs Most Recent Imported Vital Signs: Most Recent Vital Signs Temp Pulse Resp BP Pulse Ox 36.3 C L 91 H 16 135/60 94 03/17/23 10:01 03/17/23 10:01 03/17/23 10:01 03/17/23 10:01 03/17/23 10:01 Pain Score Most Recent Pain Score: Most Recent Pain Score Pain Level 3 03/17/23 10:01 Assessment Mental Status: Arousable with meaningful communication Airway and Respiratory Function: Patent airway with normal (patient baseline) respiratory exam Cardiovascular Function: Hemodynamically Stable Hydration Status: Adequately Hydrated Nausea & Vomiting: No Nausea or Vomiting Pain: Pain is tolerable per patient (4) Peripheral Nerve Block: Patient did not receive a nerve block
== END 2023-03-17 06:22 | disposition home or self-care (01) ==
LOC: SUR 06:22
PROVIDERS: PCP Internal Medicine; Visit Provider Surgery
PROC: 0FT44ZZ Resection of Gallbladder, Percutaneous Endoscopic Approach (ICD-10-PCS; CPT 47562; principal; 2023-03-17 07:30)
DX: K82.8 Other specified diseases of gallbladder (principal); K81.1 Chronic cholecystitis
CPT/HCPCS: 47562; 88304; J0131; J0665; J0690; J1100; J1170; J1885; J2001; J2250; J2371; J2405; J2704; J3010

== ENCOUNTER → 2023-03-29 12:48 | Outpatient (BNVA) | payer MEDICARE, SELFPAY | PROVIDERS: PCP Internal Medicine; Referring Provider Internal Medicine; Visit Provider Surgery | DX: Z48.815 Encounter for surgical aftercare following surgery on the digestive system (principal); K91.5 Postcholecystectomy syndrome ==

== ENCOUNTER → 2023-04-26 13:48 | Outpatient (BNVA) | payer MEDICARE, SELFPAY | PROVIDERS: PCP Internal Medicine; Referring Provider Internal Medicine; Visit Provider Surgery | DX: Z48.815 Encounter for surgical aftercare following surgery on the digestive system (principal) ==

== ENCOUNTER → 2023-05-05 00:28 | Outpatient (CLI) | payer MEDICARE, SELFPAY ==
--- NOTE | 2023-05-05 | DI.CT_ITS ---
Exam(s) CT CHEST/ABD/PEL W EXAM: CT CHEST/ABD/PEL W CLINICAL HISTORY: F/U, OVARIAN CA TECHNIQUE: Imaging Protocol: Axial computed tomography images with coronal and sagittal reformatted images were created and reviewed CONTRAST MATERIAL: Intravenous: Omnipaque 350 contrast volume:100 mL Oral: Yes COMPARISON: CT CT CHEST/ABD/PEL W from 04/07/[address] CHEST/ABD/PEL W from 09/28/2022 FINDINGS: CHEST: Tracheobronchial tree: Patent where visualized. Pulmonary parenchyma: No consolidation or dominant measurable mass. There is an area of dependent ate lectasis in the right lung base. Visualized thyroid gland: Unremarkable. Mediastinum and Britney: No dominant adenopathy or fluid collection. The esophagus is unremarkable. The re is a moderate size hiatal hernia. Pleura: No effusion or pneumothorax. Heart: The heart is not dilated. No coronary artery calcifications are seen. No pericardial effusion. Pulmonary arteries: No pulmonary emboli are identified. Aorta: Thoracic aorta non-dilated. No evidence of dissection. Lymph nodes: Within normal limits. Soft tissues: Unremarkable. Bones:Within normal limits for the patient's age. No aggressive osseous lesions. ABDOMEN: Liver: Normal density. No measurable mass. Portal, Superior Mesenteric, and Splenic Veins: Unremarkable. Gallbladder and Biliary Tract: Status post cholecystectomy. No significant biliary ductal dilatation. Pancreas: Normal density, no abnormal calcifications or inflammatory process. Spleen: Normal. Adrenals: No masses seen. Kidneys: Normal size, contour and axis. No radiodense stones or obstructive uropathy. No masses seen. Abdominal Aorta: Abdominal portion non-dilated. Atherosclerotic calcification is present. Bowel: Diverticulosis of the colon but no evidence of acute diverticulitis. There is no evidence of b owel obstruction or bowel wall thickening. No evidence of appendicitis. Peritoneal Cavity: No ascites, collection or mesenteric inflammatory response. No free air. Lymph Nodes: Within normal limits. Bones: Within normal limits for the patient's age. No aggressive osseous lesions. Soft Tissues: Unremarkable. PELVIS: Bladder: Symmetric distention, no gross wall thickening. Reproductive Organs: Status post hysterectomy. Lymph Nodes: Within normal limits. Bones: Within normal limits. IMPRESSION: 1. No evidence of metastatic disease in the chest, abdomen or pelvis. 2. No acute process. RADIATION DOSE DELIVERED: 1,545.82mGy.cm Total DLP DATA REPOSITORY: All CT scans at this facility are submitted to the National Radiology Data Registry (NRDR) Dose Index Registry (DIR) with the [employer] (ACR). RADIATION OPTIMIZATION: All CT scans at this facility use at least one of these dose optimization te chniques: automated exposure control; mA and/or kV adjustment per patient size (includes targeted exa ms where dose is matched to clinical indication); or iterative reconstruction.
[2023-05-05] MEDS: Barium Sulfate 2% W/V-Berry Smoothie 450 ML BTL PO (10:46)
[2023-05-05] MEDS: Barium Sulfate 2% W/V-Creamy Vanilla Smoothie 450 ML BTL PO (10:47)
[2023-05-05 11:18] LABS: Abs Immature Grans 0.01 10^3/uL (0.0-0.06); Absolute Basophil Count 0.03 10^3/uL (0.0-0.2); Absolute Eosinophil Count 0.09 10^3/uL (0.0-0.7); Absolute Lymphocyte Count 1.05 10^3/uL (1.2-3.4); Absolute Monocyte Count 0.36 10^3/uL (0.1-0.8); Absolute Neutrophil Count 4.68 10^3/uL (1.2-6.7); Basophils % 0.5; Eosinophils % 1.4; HCT 40.9 % (36.0-46.0); HGB 13.9 g/dL (11.2-15.7); Immature Grans % 0.2; Lymphocytes % 16.9; MCH 32.1 pg (27.0-33.0); MCV 95 fL (80-95); Monocytes % 5.8; Neutrophils % 75.2; Platelet Count 301 10^3/uL (130-400); RBC 4.33 10^6/uL (3.93-5.22); RDW 12.1 % (11.7-14.6); RDW-SD 42.5 fL; WBC 6.22 10^3/uL (4.4-10.8)
[2023-05-05 11:38] LABS: ALT 21 U/L (14-59); AST 27 U/L (15-37); Albumin 3.6 g/dL (3.4-5.0); Alkaline Phosphatase 107 U/L (46-116); Anion Gap 11.5 mmol/L (3-11); BUN 8 mg/dL (7-18); Bilirubin, Total 0.5 mg/dL (0.2-1.0); CO2 26.5 mmol/L (21.0-32.0); CREATININE 0.8 mg/dL (0.55-1.02); Calcium 9.5 mg/dL (8.5-10.1); Chloride 102 mmol/L (98-107); Estimated GFR 80.71 (mL/min/1.73m2); Glucose 120 mg/dL (74-106); Sodium 140 mmol/L (136-145); Total Protein 7.3 g/dL (6.4-8.2)
[2023-05-05] MEDS: Normal Saline - Diluent 50 ML VIAL IJ (13:35)
[2023-05-05] MEDS: Omnipaque 350 MG/ML 100 ML BTL IJ (13:35)
[2023-05-05 18:55] LABS: CA 125 24 U/mL (<30)
== END ==
PROVIDERS: PCP Internal Medicine; Visit Provider Internal Medicine
DX: C38.4 Malignant neoplasm of pleura (principal)
CPT/HCPCS: 74177; 80053; 86304; 71260; 85025; J3490

== ENCOUNTER → 2023-05-23 02:50 | Outpatient (CLI) | payer MEDICARE, SELFPAY ==
--- NOTE | 2023-05-23 | DI.MAMMO_ITS ---
Exam(s) MG MAMMO SCREENING 60 MIN DUR EXAM: MG MAMMO SCREENING 60 MIN DUR CLINICAL HISTORY: SCREENING MAMMO, OVARIAN CANCER. TECHNIQUE: Bilateral full field digital CC and MLO mammographic images were obtained with 3D tomosyn thesis and utilizing computer aided detection (CAD). COMPARISON: Prior mammograms were reviewed. FINDINGS: There has been no significant change in the appearance and distribution of the fibroglandular tissue. There are no new spiculated masses nor malignant appearing microcalcification groups. There is no significant architectural distortion nor skin thickening-retraction. IMPRESSION: No radiographic evidence of malignancy. BI-RADS Category 1 - Negative Breast Density - Category C - Heterogeneously dense Breast density Category C or D implies that the patient has dense breast tissue. Dense breast tissue can make it harder to find cancer on a mammogram. Dense breast tissue is also associated with an incr eased risk of breast cancer. This information about the result of the mammogram report was provided to the patient to raise their awareness. Use this report when you speak with the patient about their risks for breast cancer, which includes their family history. At that time, you may recommend additional screening tests (Ultrasoun d or MRI) as these tests may add significant information. A negative radiographic report should not delay biopsy if a dominant or clinically suspicious mass is present. Up to ten percent of cancers are not identified on mammography. A negative report may reinforce clinical impression. Adenosis and dense breasts may obscure an underlying neoplasm. False positive reports average 6 to 10%. Patient will receive a letter notifying them of these results.
== END ==
PROVIDERS: PCP Internal Medicine; Visit Provider Internal Medicine
DX: Z12.31 Encounter for screening mammogram for malignant neoplasm of breast (principal)
CPT/HCPCS: 77063; 77067

== ENCOUNTER → 2023-06-08 04:23 | Outpatient (CLI) | payer MEDICARE, SELFPAY ==
--- NOTE | 2023-06-08 | DI.US_ITS ---
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 Ejection fraction is 55 to 60%. Wall motio n is normal Normal right ventricular size and function Both atria are normal in size There is no structural or hemodynamically significant valvular disease Estimated right ventricular systolic pressure is 22 mmHg Wall motion Left Ventricle The left ventricle is normal size. The left ventricular systolic function is normal. The left ventric ular ejection fraction is within the normal range. There is normal left ventricular wall thickness. T here is normal LV segmental wall motion. There is no ventricular septal defect visualized. LVEF is 5 5%. Right Ventricle The right ventricle is normal size. The right ventricular systolic function is normal. Atria The left atrium size is normal. The right atrium size is normal. The interatrial septum is intact wit h no evidence for an atrial septal defect. Aortic Valve The aortic valve is normal in structure. Aortic valve is trileaflet. There is no aortic valvular sten osis. No aortic regurgitation is present. Mitral Valve The mitral valve is normal in structure. No evidence of mitral valve stenosis. Trace mitral regurgita tion. Tricuspid Valve The tricuspid valve is normal in structure. There is no tricuspid valve stenosis. Trace tricuspid reg urgitation. The RVSP is 21.9 mmHg. Pulmonic Valve The pulmonary valve is normal in structure. There is no pulmonic valvular stenosis. There is no pulmo aniyah valvular regurgitation. Great Vessels The aortic root is normal in size. The ascending aorta is normal Aortic arch is normal in caliber. IV C is normal in size and collapses >50% with inspiration. Pericardium There is no pericardial effusion. 2D Dimensions IVSD d PLAX 0.90 cm F: 0.6-1.0 Ao Root d 2.90 cm F: 2.7 - 3.3 LVPW d PLAX 0.93 cm F: 0.6 - 1.0 Ao Asc Diam d 3.33 cm F: 2.3 - 3.1 LVID d PLAX 4.10 cm F: 3.8 - 5.2 LVDs 2.84 cm F: 2.2 - 3.5 LV EF Teichholz 59.0 % FS 30.87 % LV EDV (Teich) 74.4 mL LV ESV (Teich) 30.5 mL M-Mode TAPSE 2.25 cm (M/F) >1.7 Auto EF LV EDV A4C 80.6 mL LV EDV A2C 78.2 mL LV EDV BP 79.1 mL LV ESV A4C 37.3 mL LV ESV A2C 35.3 mL LV ESV BP 36.4 mL LVEF(%) A4C 53.7 % LVEF(%) A2C 54.8 % LVEF(%) BP 53.9 % LV SV A4C 43.3 ml LV SV A2C 42.9 ml LV SV BP 42.7 ml LV CO A4C 4.1 L/min LV CO A2C 4.1 L/min LV CO BP 4.1 L/min HR A4C 93.52 BPM HR A2C 96.00 BPM LV EDV Index (BP) LA Volume LA Length A4C 4.9 cm LA Length A2C 4.4 cm LA Area A4C s 16.49 cm2 LA Area A2C s 13.88 cm2 LA Vol A4C A-L 46.89 mL LA Vol A2C A-L 37.05 mL LA Vol Biplane A-L 44.0 mL LA Vol/BSA A4C A-L LA Vol/BSA A2C A-L LA Vol/BSA BP A-L 23.5 mL/m2 LA Vol A4C MOD 41.3 mL LA Vol A2C MOD 34.4 mL LA Vol BP MOD 39.6 mL RA Volume RA Area A4C 11.0 cm2 RA ESV A4C (A-L) 22.9mL RA Vol/BSA A4C A-L RA Length A4C 4.5 cm RA ESV A4C (MOD) 22.2mL LV Diastology MV E' medial 0.078 (>0.07 m/s) MV E Vmax 0.87 (0.4-1.3 m/s) MV E/E' MED 11.22 (<14) MV A Vmax 1.15 (0.4-1.3 m/s) MV E' lateral 0.099 (>0.1 m/s) E/A Ratio 0.8 MV E/E' LAT 8.79 (<14) MV E' Average 0.088 m/s MV E/E'(average) 9.86 Aortic Valve AoV Vmax 1.17 m/s LVOT Vmax 1.10 m/s AoV Peak Grad 5.5 mmHg LVOT Peak Grad 4.8 mmHg AoV Area (Vmax) 2.68 cm2 LVOT VTI 0.210 m AoV VTI 0.219 m LVOT Mean Grad 2.6 mmHg AoV Mean Jovan. 0.80 m/s LVOT SV 59.66 mL AoV Mean Grad 2.9 mmHg LVOT Diam s 1.90 cm AoV Area (VTI) 2.72 cm2 Velocity Ratio 0.94 Mitral Valve MV DT 244 (160-240 msec) MV Vmax TIPS 1.25 m/s MV Mean Grad 3.0 (<2mmHg) MV VTI 0.227 m Pulmonary Valve PV Vmax 1.12 (0.5-1.5 m/s) RVOT Vmax 0.73 m/s PV Peak Grad 5.1 mmHg RVOT Peak Gr. 2.1 mmHg PV Mean Jovan 0.81 m/s RVOT VTI 0.152 m PV Mean Grad 2.9 mmHg RVOT Mean Gr. 1.2 mmHg Tricuspid Valve RA Pressure 3.00 mmHg TR Vmax 2.18 m/s TV S' 0.14 m/s TR Peak Grad 18.9 mmHg RVSP (TR) 21.9 mmHg
== END ==
PROVIDERS: PCP Internal Medicine; Visit Provider Internal Medicine
DX: R06.00 Dyspnea, unspecified (principal)
CPT/HCPCS: 93306

== ENCOUNTER 2023-09-06 01:56 | Outpatient (CLI) | payer MEDICARE, SELFPAY ==
[2023-09-06 13:47] LABS: Abs Immature Grans 0.01 10^3/uL (0.0-0.06); Absolute Basophil Count 0.03 10^3/uL (0.0-0.2); Absolute Eosinophil Count 0.09 10^3/uL (0.0-0.7); Absolute Lymphocyte Count 1.37 10^3/uL (1.2-3.4); Absolute Monocyte Count 0.29 10^3/uL (0.1-0.8); Absolute Neutrophil Count 3.26 10^3/uL (1.2-6.7); Basophils % 0.6 %; Eosinophils % 1.8 %; HCT 42.4 % (36.0-46.0); HGB 14.4 g/dL (11.2-15.7); Immature Grans % 0.2 %; Lymphocytes % 27.1 %; MCH 32.8 pg (27.0-33.0); MCV 97 fL (80-95); MPV 9.1 fL (8.0-11.0); Monocytes % 5.7 %; Neutrophils % 64.6 %; Platelet Count 228 10^3/uL (130-400); RBC 4.39 10^6/uL (3.93-5.22); RDW-SD 42.9 fL; WBC 5.05 10^3/uL (4.4-10.8)
[2023-09-06 14:02] LABS: Hemoglobin A1C 5.4 % (<5.7)
[2023-09-06 22:58] LABS: CA 125 11 U/mL (<30)
== END 2023-09-06 01:57 | disposition home or self-care (01) ==
PROVIDERS: PCP Internal Medicine; Visit Provider Internal Medicine
DX: R73.9 Hyperglycemia, unspecified (principal)
CPT/HCPCS: 36415; 86304; 83036; 85025

== ENCOUNTER 2024-01-02 18:37 | Outpatient (REF) | payer MEDICARE, SELFPAY ==
--- OUTSIDE RECORDS SUMMARY | 2024-01-02 18:39 | XMS_ITS | Clinical Summary ---
Author Organization [facility] Address [facility] [place] [address] Care Team Providers Care Hotel Dining Room Cashier Name Role Phone Deedee Cruz MD Primary Care Provider [phone] Allergies Active Allergy Reactions Criticality Noted Date Comments Fish Containing Products Nausea And Vomiting High 11/23/2020 Heparin Analogues High 01/07/2021 01/07/2021: Pt. Stated when she was given heparin previously she was advised never to have it again as she became, red all over, chest pain, shortness of breath per pt. Pork/Porcine Containing Products Nausea And Vomiting High 11/23/2020 Paclitaxel Other (See Comments) Medium 12/17/2020 See nurses note 12/17/20 and MAR- Taxol needed to be infused over 5 plus hours. HSR protocol initiated x 2. Patient eventually completed Taxol. Medications Medication Sig Dispensed Refills Start Date End Date Status gabapentin (NEURONTIN) 600 mg Tablet TAKE ONE TABLET BY MOUTH FOUR TIMES A DAY 11/03/2020 Active acetaminophen (Tylenol) 325 mg Tablet Take 2 tablets by mouth every 6 hours. 30 tablet 1 11/21/2020 Active polyethylene glycoL (Miralax) 17 gram/dose Powder Take 17 g by mouth daily as needed. 255 g 11/26/2020 Active lidocaine-prilocain e (EMLA) CreamIndications:Le ft ovarian epithelial cancer Place on skin over port site ~ 1-hour prior to access for labs or chemo. 30 g 5 12/07/2020 Active Additional Information Patient not taking.Reported on 02/14/2022 amitriptyline (Elavil) 10 mg Tablet 02/17/2021 Active lisinopriL (Zestril) 5 mg Tablet 03/06/2021 Active celecoxib (CeleBREX) 200 mg Capsule Take 200 mg by mouth 2 times daily as needed. 02/02/2022 Active folic acid (Folvite) 1 mg Tablet Take 1,000 mcg by mouth daily. 12/03/2021 Active sertraline (Zoloft) 50 mg Tablet Take 50 mg by mouth daily. 01/30/2022 Active Banophen 25 mg Capsule Take 25 mg by mouth 3 times daily as needed. 02/07/2022 Active amoxicillin-clavula pauline (Augmentin) 875-125 mg Tablet Take 1 tablet by mouth every 12 hours. 02/07/2022 Active cyanocobalamin, Vitamin B-12, (Vitamin B-12) 1,000 mcg Tablet Take 1,000 mcg by mouth daily. Active GLUCOSAM-CHONDROITI N-DIET CB25 ORAL Take 750 mg by mouth 2 times daily. 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 cancer, left 12/07/2020 Ileus, postoperative 11/23/2020 RLQ abdominal pain 11/23/2020 Ileus 11/23/2020 Pelvic mass 11/18/2020 Family History Medical History Relation Comments Cancer Brother testis Cancer Mother throat - smoker Relation Status Comments Brother Mother Social History Tobacco Use Types Packs/Day Years Used Date Smoking Tobacco: Never Smokeless Tobacco: Never Alcohol Use Standard Drinks/Week Comments Never 0 (1 standard drink = 0.6 oz pur e alcohol) Sex and Gender Information Value Date Recorded Sex Assigned at Not on file Gender Identity Not on file Sexual Orientation Not on file Last Filed Vital Signs Vital Sign Reading Time Taken Comments Blood Pressure 174/75 06/06/2022 3:04 PM EDT Pulse 85 06/06/2022 2:14 PM EDT Temperature 36.3 ??C (97.3 ??F) 06/06/2022 3:04 PM ED T Respiratory Rate 16 06/06/2022 3:04 PM EDT Oxygen Saturation 97% 06/06/2022 3:04 PM EDT Inhaled Oxygen Concentration - - Weight 81.1 kg (178 lb 14.4 oz) 02/14/2022 9:58 AM EST Height 165.1 cm (5' 5) 10/18/2021 9:36 AM EDT Body Mass Index 29.77 10/18/2021 9:36 AM EDT Plan of Treatment Health Maintenance Due Date Last Done Comments CT Colonography 1955 Colonoscopy 1955 Colorectal Cancer Screening 1955 FIT DNA 1955 FIT 1955 Sigmoidoscopy (10 year) with FIT yearly 1955 Sigmoidoscopy 1955 Hepatitis C Screening 07/23/1973 Tetanus/Diphtheria/Pertussis Vaccines (1 - Tdap) 07/23/1974 Breast Cancer Share Decision Needed 1995 Breast Cancer screening 1995 Zoster vaccine (1 of 2) 07/23/2005 Bone Density Scan 07/23/2020 Pneumoccocal Vaccine: 65+ (1 of 1 - PCV) 07/23/2020 Covid-19 Vaccine ( - 2022-2 4 season) 2023 Influenza (Flu) vaccine (1 o f 1 - Influenza standard series) 11/12/2023 Diabetes Screening (HgbA1C o r Glucose) 04/26/2024 04/26/2021, 12/15/2020, 11/24/2020, Additional history exists Medical Devices Explanted Type Area Leather Crafter Device Identifier Shelf Expiration Date Model / Serial / Lot Port Infusion 8fr Cath Power Lp Ct Plastic Dignity ([id number])-12/15/2020 Implanted:Qty : 1 on 12/15/2020 by Scottie Pantoja PA Explanted:Qty : 1 on 06/06/2022 by Joanna Bennett PA IMPLANTS Right: Chest Wall [employer] - [employer] [place] 08/10/2024 [id number] / / [id number] Description:8fr mini powerpo rt right port explanted Procedures Procedure Name Priority Date/Time Associated Diagnosis Comments COMPREHENSIVE METABOLIC PANEL Routine 04/26/2021 1:22 PM EST Ovary cancer, right from Last 3 Months or Most Recently Relevant to Health Maintenance Results * (ABNORMAL) Comprehensive metabolic panel (non-fasting) (04/26/2021 1:22 PM EST) Glucose 106 65 - 199 mg/dL [facility] Comment:Diabetes: >=200 mg/d L plus symptoms Blood Urea Nitrogen 4(L) 8 - 18 mg/dL [facility] Creatinine 0.62(L) 0.70 - 1.20 mg/dL [facility] Sodium 136 135 - 145 mmol/L [facility] Potassium 3.5 3.5 - 5.0 mmol/L [facility] Comment: Please note: ??Patients with WBC >100,000 may have falsely elevated Potassium levels. ??For accurate Potassium quantification in these patients send serum separator tube (gold top) for subsequent determinations. ??Contact the Clinical Chemistry Laboratory if there are any questions. Chloride 99 98 - 107 mmol/L [facility] Carbon Dioxide 25 22 - 31 mmol/L [facility] Anion Gap 12 5 - 15 mmol/L [facility] Calcium 8.8 8.5 - 10.5 mg/dL [facility] Protein, Total 6.3 6.1 - 8.0 g/dL [facility] Albumin 4.0 3.2 - 5.2 g/dL [facility] Aspartate Aminotransferase 15 0 - 30 unit/L [facility] Alanine Aminotransferase 10 0 - 30 unit/L [facility] Alkaline Phosphatase 92 35 - 105 unit/L [facility] Bilirubin, Total 0.3 0.2 - 1.3 mg/dL [facility] Est Glomerular Filtration Rate 95 >=60 mL/min/1. 73 m?? [facility] Comment: This patient? s estimated glomerular filtration rate (eGFR) is between 95 mL/min/1.73 m2 (patients with less muscle mass) and 110 mL/min/1.73 m2 (patients with more muscle mass) as determined by the CKD-EPI equation. Assessment of eGFR is not appropriate when creatinine concentrations are rapidly changing. For clinical decisions where creatinine clearance will affect therapy, a 24-hour urine creatinine clearance may be advised. Assignment of CKD stage 1 - 5 for patients with an eGFR near the transition point between stages may be based on clinical assessment of muscle mass and symptoms in addition to eGFR. Blood 04/26/2021 1:22 PM EST 04/26/2021 1:29 PM EST Narrative Resulting Agency Comment Spec In Lab Aletha Francois MD CHEMISTRY ORDERABLES [facility] [address] [place] [address] from Last 3 Months or Most Recently Relevant to Health Maintenance Advance Directives Documents on File Type Date Recorded Patient Manager Mental Health Expl anation Advance Directives and Living Will 11/13/2020 5:20 PM Advance Directive fo r Health Care Advance Directives and Living Will 11/13/2020 Power of Biology Specialist * Attempt Cardiopulmonary Resuscitation - Inpatient (Latest Code Status on File) Date Activated Date Inactivated Comments 06/06/2022 2:08 PM 06/07/2022 4:34 AM Question Answer Comments Code Status decision made by: Patient * Attempt Cardiopulmonary Resuscitation - Inpatient Date Activated Date Inactivated Comments 12/15/2020 7:07 AM 12/16/2020 4:35 AM Question Answer Comments Code Status decision made by: Patient * Attempt Cardiopulmonary Resuscitation - Inpatient Date Activated Date Inactivated Comments 11/24/2020 4:36 AM 11/26/2020 2:03 PM Question Answer Comments Code Status decision made by: Patient * Attempt Cardiopulmonary Resuscitation - Inpatient Date Activated Date Inactivated Comments 11/24/2020 12:18 AM 11/24/2020 4:36 AM Question Answer Comments Code Status decision made by: Patient * Attempt Cardiopulmonary Resuscitation - Inpatient Date Activated Date Inactivated Comments 11/23/2020 9:38 PM 11/23/2020 9:39 PM Question Answer Comments Code Status decision made by: Patient Care Teams Hotel Dining Room Cashier Relationship Specialty Start Date End Date [place], Deedee, MD [address] [place] [id number] PCP - General Oncology 02/15/22
--- OUTSIDE RECORDS SUMMARY | 2024-01-02 18:39 | XMS_ITS ---
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 Past Plans ADULT TREATMENT Plan Name Start Date Discontinue Date Treatment Medications Discontinue Reason Plan Provider Cycles BCN AMB SKI PATROLLER ONC OVARIAN CANCER - CARBOplatin / PACLitaxel 12/15/19 21 01/06/2022 CARBOplatin (Paraplatin) in 150 mL infusionPACLitaxeL (Taxol) in Non-PVC sodium chloride 0.9% 250 mL infusion Therapy Complete Aletha Francois MD 6 of 6 cycles started Mediport Maintenance Plan Name Start Date Discontinue Date Treatment Medications Discontinue Reason Plan Provider MEDIPORT ADMINISTRATION 04/26/2021 10/04/2023 No medications scheduled. Therapy Complete Aletha Francois MD Radiation Treatments * No radiation treatments are documented for this patient in [facility]. Treatments may have been administered in another system. Lifetime Dose Tracking * Chemical Lifetime Dose Automatic Entry Manual Entr y DLP (Dose Length Product) 415 mGy-cm 415 mGy-cm 0 mGy-cm CTDI (CT Dose Index) Min 7.98 mGy 7.98 mGy 0 m Gy CTDI (CT Dose Index) Max 7.98 mGy 7.98 mGy 0 m Gy
--- OUTSIDE RECORDS SUMMARY | 2024-01-02 18:39 | XMS_ITS | Encounter Summary ---
Author Organization [facility] [place] [address] Care Team Providers Care Lacing String Cutter Name Role Phone Deedee Cruz MD Primary Care Provider Reason for Referral * Diagnostic Test (Routine) - Closed Specialty Diagnoses / Procedures Referred By Ryan turk Referred To Contact Radiology Diagnoses Status post chemotherapy Procedures IR Aletha Carrillo MD [facility] [place] [address] [place] [address] Referral ID Status Reason Start Date Expiration Date V isits Requested Visits Authorized [id number] Closed Specialty Service Requested 02/15/2022 08/17/2023 1 1 Reason for Visit * Diagnostic Test (Routine) - Closed Specialty Diagnoses / Procedures Referred By Contgenaro t Referred To Contact Radiology Diagnoses Status post chemotherapy Procedures IR Aletha Carrillo MD [facility] [place] [address] [place] [address] Referral ID Status Reason Start Date Expiration Date V isits Requested Visits Authorized [id number] Closed Specialty Service Requested 02/15/2022 08/17/2023 1 1 Encounter Details Date Type Department Care Team (Latest Contact Info) Description 06/06/2022 1:43 PM EDT - 06/06/2022 11:59 PM EDT Hospital Encounter Radiology at [facility] [place] [address] Aletha Francois MD [facility] [place] [id number] Status post chemotherapy Discharge Disposition: Home Social History Tobacco Use Types Packs/Day Years Used Date Smoking Tobacco: Never Smokeless Tobacco: Never Alcohol Use Standard Drinks/Week Comments Never 0 (1 standard drink = 0.6 oz pur e alcohol) Sex and Gender Information Value Date Recorded Sex Assigned at Not on file Gender Identity Not on file Sexual Orientation Not on file documented as of this encounter Last Filed Vital Signs Vital Sign Reading Time Taken Comments Blood Pressure 174/75 06/06/2022 3:04 PM EDT Pulse 85 06/06/2022 2:14 PM EDT Temperature 36.3 ??C (97.3 ??F) 06/06/2022 3:04 PM ED T Respiratory Rate 16 06/06/2022 3:04 PM EDT Oxygen Saturation 97% 06/06/2022 3:04 PM EDT Inhaled Oxygen Concentration - - Weight - - Height - - Body Mass Index - - documented in this encounter Discharge Instructions * Discharge Instructions* Ben Montemayor RN - 06/06/2022 2:23 PM EDT Images from the original note were not included. [facility] Vascular and Interventional Radiology Discharge Instructions for your Chest Port Removal Activity: Relax for the next 24 hours Diet: Drink plenty of fluids. Resume your regular diet Bandage: There is a sterile dressing consisting of small gauze with a clear dressing (Tegaderm or IV 3000). This dressing should be left in place for 48 hours. If the clear dressing becomes loose youshould place tape over the edges to secure it in place. No tub baths, swimming or whirlpools for 1 week. No showering for 48 hours. Note: If you have steri-strips beneath your dressing, simply allow them to fall off. Do not peel them off. There may be [place]-godoy (skin glue) also, allow this to flake off. Do not pick this off. Bathing: Do not take a shower until 48 hours after your port is removed; after this time you may shower with the dressing in place, then remove it and pat your skin dry. After 48 hours, we recommend that you cover the area with THE AQUA GUARD PROVIDED for 1 week while showering, facing away from the shower stream. You may use a bandaid to cover the site after the 48 hours are up if there is any drainage. No tub baths, whirlpools or swimming for one week following port removal. Pain: Apply ice bag to site (s) at 30 minute intervals (30 minutes on and 30 minutes off) for 24 hours?? . May use as needed for pain and/or bruising after 24 hours. When to call your healthcare provider: If you notice bleeding from the incision on your chest, you should lie flat and apply firm pressureover the site for 10-15 minutes, keeping the site covered and call your doctor. If you are still bleeding after 10-15 minutes, reapply pressure, and have someone drive you to the nearest Emergency Department, or call 911. If you develop pain, redness, drainage or swelling at or around chest incision site. If you develop a fever equal to or greater than 101 degrees Fahrenheit. When to call the Interventional Radiology Department: Please call with any questions or concerns. If it is during regular office hours, please call [phone]. If it is after regular office hours, or on weekends or holidays, please call [phone] and ask to speak to the Molding Line Operator senior applications architect for Interventional Radiology. You have received medication during your procedure to help lessen anxiety and keep you comfortable.These medications affect judgement and reaction time. We recommend that you do not drive, operate equipment, sign any important documents, or smoke unattended for 24 hours following your procedure. Because of the sedation, be careful on stairs, as you may be unsteady on your feet. You may resume your regular diet as tolerated. IV site -- slight redness, or tenderness is normal, you can use a warm compress. If tenderness and redness increases or foul drainage occurs, please contact your M. D. Revised 12/27/18 documented in this encounter Medications at Time of Discharge Medication Sig Dispensed Refills Start Date End Date celecoxib (CeleBREX) 200 mg Capsule Take 200 mg by mouth 2 times daily as needed. 02/02/2022 folic acid (Folvite) 1 mg Tablet Take 1,000 mcg by mouth daily. 12/03/2021 sertraline (Zoloft) 50 mg Tablet Take 50 mg by mouth daily. 01/30/2022 Banophen 25 mg Capsule Take 25 mg by mouth 3 times daily as needed. 02/07/2022 amoxicillin-clavulanate (Augmentin) 875-125 mg Tablet Take 1 tablet by mouth every 12 hours. 02/07/2022 cyanocobalamin, Vitamin B-12, (Vitamin B-12) 1,000 mcg Tablet Take 1,000 mcg by mouth daily. EYAQDUDR-ESELOATHPNM-TFT T CB25 ORAL Take 750 mg by mouth 2 times daily. lisinopriL (Zestril) 5 mg Tablet 03/06/2021 amitriptyline (Elavil) 10 mg Tablet 02/17/2021 lidocaine-prilocaine (EMLA) CreamIndications:Left ovarian epithelial cancer Place on skin over port site ~ 1-hour prior to access for labs or chemo. 30 g 5 12/07/2020 polyethylene glycoL (Miralax) 17 gram/dose Powder Take 17 g by mouth daily as needed. 255 g 11/26/2020 acetaminophen (Tylenol) 325 mg Tablet Take 2 tablets by mouth every 6 hours. 30 tablet 1 11/21/2020 gabapentin (NEURONTIN) 600 mg Tablet TAKE ONE TABLET BY MOUTH FOUR TIMES A DAY 11/03/2020 documented as of this encounter Progress Notes * Ben Montemayor RN - 06/06/2022 2:40 PM EDT ANGIO NURSING DATABASE Name: Dalia Mcfarlane Date of : 1955 AGE: 66 y.o. [address]: [address] [place] [address] [place] [address] Phone: [phone] (home) Mobile: Telephone Information: Referring Provider: Aletha Francois REASON FOR VISIT: Order Questions Answers Where will study be performed? [facility] Radiology [120] Reason for exam and clinical history: 66 y/o female needing MediPort removed. Is the patient on anticoagulant / antiplatelet therapy ? No No data recorded Allergies Allergen Reactions ??? Fish Containing Products Nausea And Vomiting ??? Heparin Analogues 01/07/2021: Pt. Stated when she was given heparin previously she was advised never to have it againas she became, red all over, chest pain, shortness of breath per pt. ??? Pork/Porcine Containing Products Nausea And Vomiting ??? Taxol [Paclitaxel] Other (See Comments) See nurses note 12/17/20 and MAR- Taxol needed to be infused over 5 plus hours. HSR protocol initiated x 2. Patient eventually completed Taxol. Pertinent PMH: Patient Active Problem List Diagnosis Code ??? Pelvic mass R19.00 ??? Ileus, postoperative K91.89, K56.7 ??? RLQ abdominal pain R10.31 ??? Ileus K56.7 ??? 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 Ovary cancer, left C56.2 Date/Procedure Meds Given/Comments 12/15/2020 Mediport placement Cefazolin 2 g IV, Fentanyl 250 mcg IV, Versed 4 mg IV ??06/06/22 Mediport removal ??Local only ? 7589 to procedure room 6 via stretcher. Onto stretcher supine. BP cuff, pulse ox in place. Meds perprotocol. Laboratory Results: Lab Results Component Value Date CREATININE 0.62 (L) 04/26/2021 Lab Results Component Value Date K 3.5 04/26/2021 Lab Results Component Value Date PLATELET 220 04/26/2021 documented in this encounter H&P Notes * Joanna Bennett PA - 06/06/2022 2:08 PM EDT Interventional Radiology Interval H&P: Procedure: right chest port removal The patient's history and physical exam have been reviewed and completed. There has been no interval change from that of the pre-operative history and physical exam done within the last 30 days. Physical Exam: Cardiovascular: Regular, Normal Pulmonary: Breath sounds clear to auscultation The planned procedure (and sedation plan if appropriate), its benefits and risks, and alternatives were discussed with the patient. The patient consented to the procedure. The indications for the procedure are still present. Pre-sedation Assessment: Sedation Plan: no sedation Current medications reviewed: Yes Allergies reviewed: Yes Note from BAILEY Murdock (02/16/22) Interventional Radiology Focused Pre-procedure H&P: ?? PCP: Deedee Cruz MD ?? Procedure indication: Ovarian cancer, therapy complete, no evidence of recurrence ?? IR workflow: Procedure request received through the Interventional Radiology eDH order queue. ?? History of present illness: Per chart review, Dalia Mcfarlane is a 66 y.o. female who presents to Interventional Radiology to undergo removal of chest port in setting of ovarian cancer. ?? This is a patient with ovarian cancer s/p all directed therapy, and without clinical or radiographic signs of recurrence. IR consulted for removal of chest port, placed Dec 2020. ?? Remainder of patient's medical and surgical history, allergies, medications, and social/family history obtained below as previously outlined in patient's medical record. ?? IR history: as above ?? Assessment: 66 y.o. female with ovarian cancer without recurrence presenting to Interventional Radiology for chest port removal. ?? Plan Planned procedure: Chest port explant Labs to be performed day of procedure: No labs Sedation: No Sedation Prophylactic antibiotic : None Contrast: No contrast Additional medications for procedure: Lidocaine Position: Supine Consent: Pending Medications to discontinue (and days held): None ?? Labs: Lab Results Component Value Date ?? HGB 11.2 (L) 04/26/2021 ?? HCT 32.4 (L) 04/26/2021 ?? WBC 4.6 04/26/2021 ?? PLATELET 220 04/26/2021 ?? BUN 4 (L) 04/26/2021 ?? CREATININE 0.62 (L) 04/26/2021 ?? ALBUMIN 4.0 04/26/2021 ?? BILITOT 0.3 04/26/2021 ?? AST 15 04/26/2021 ?? ALT 10 04/26/2021 ?? ALKPHOS 92 04/26/2021 ?? Allergies: Fish containing products, Heparin analogues, Pork/porcine containing products, and Taxol[paclitaxel] Medications: Current Outpatient Medications on File Prior to Visit Medication Sig Dispense Refill ??? celecoxib (CeleBREX) 200 mg Capsule Take 200 mg by mouth 2 times daily as needed. ? folic acid (Folvite) 1 mg Tablet Take 1,000 mcg by mouth daily. ? sertraline (Zoloft) 50 mg Tablet Take 50 mg by mouth daily. ? Banophen 25 mg Capsule Take 25 mg by mouth 3 times daily as needed. ? amoxicillin-clavulanate (Augmentin) 875-125 mg Tablet Take 1 tablet by mouth every 12 hours. ? cyanocobalamin, Vitamin B-12, (Vitamin B-12) 1,000 mcg Tablet Take 1,000 mcg by mouth daily. ? BNRQACKN-HMWJRIFKSCI-CKBM CB25 ORAL Take 750 mg by mouth 2 times daily. ? lisinopriL (Zestril) 5 mg Tablet ? amitriptyline (Elavil) 10 mg Tablet ? lidocaine-prilocaine (EMLA) Cream Place on skin over port site ~ 1-hour prior to access for labs or chemo. (Patient not taking: Reported on 02/14/2022) 30 g 5 ??? polyethylene glycoL (Miralax) 17 gram/dose Powder Take 17 g by mouth daily as needed. 255 g 0 ??? acetaminophen (Tylenol) 325 mg Tablet Take 2 tablets by mouth every 6 hours. 30 tablet 1 ??? gabapentin (NEURONTIN) 600 mg Tablet TAKE ONE TABLET BY MOUTH FOUR TIMES A DAY ? No current facility-administered medications on file prior to visit. ?? Past medical/surgical history: Patient Active Problem List Diagnosis Code ??? Pelvic mass R19.00 ??? Ileus, postoperative K91.89, K56.7 ??? RLQ abdominal pain R10.31 ??? Ileus K56.7 ??? 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 Ovary cancer, left C56.2 ?? Past Medical History Past Medical History: Diagnosis Date ??? Chronic pain ? in abdomen ??? High blood pressure ? controlled with medication ??? Motion sickness ? pt states car sickness ??? Ovary cancer, right 12/07/2020 ?? Past Surgical History Past Surgical History: Procedure Laterality Date ??? IR MEDIPORT PLACEMENT ?? 12/15/2020 ?? IR Mediport Placement 12/15/2020 Scottie Pantoja PA [facility] INTERVENTIONL RAD ??? PRO JAZIEL SALP-OOPH W/OMENTECT, ECTOR, RAD DISSECT N/A 11/19/2020 ?? @HYSTERECTOMY, ECTOR, BSO, DEBULKING (WRVU 34.13) performed by Aletha Francois MD at [facility] MAIN OR ??? PRO REMOVAL, ABDOMEN LYMPH NODE, STAGING N/A 11/19/2020 ?? @LYMPHADENECTOMY, LIMITED FOR STAGING, RETROPERITONEAL (WRVU 11.38) performed by Aletha Francois MDat [facility] MAIN OR ?? Social history and habits: Social History ?? Tobacco Use ??? Smoking status: Never ??? Smokeless tobacco: Never Vaping Use ??? Vaping Use: Never used Substance Use Topics ??? Alcohol use: Never ??? Drug use: Never ?? Significant family history: Family History Family History Problem Relation Age of Onset ??? Cancer Mother 75 ?? throat - smoker ??? Cancer Brother 25 ?? testis ?? Pertinent ROS: as per HPI Physical exam: Pending (to be performed in interventional radiology the day of procedure) ASA: Pending (to be assessed in interventional radiology the day of procedure) Mallampati class: Pending (to be assessed in interventional radiology the day of procedure) ?? 02/16/2022 BAILEY Murray documented in this encounter Plan of Treatment Not on file documented as of this encounter Procedures Procedure Name Priority Date/Time Associated Diagnosis Comments IR MEDIPORT REMOVAL Routine 06/06/2022 3:02 PM EDT Status post chemotherapy documented in this encounter Results * IR Mediport Removal (06/06/2022 3:02 PM EDT) Anatomical Region Laterality Modality X-Ray Angiograph y Narrative 06/07/2022 10:08 AM EDT Interventional Radiology Procedure Note Procedure: Venous chest port explant Indication: Ovarian cancer; discontinue prison central venous access for chemotherapy Pre-procedure: Informed consent for the procedure including risks, benefits and alternatives was obtained. Active time-out was performed prior to the procedure. Maximum sterile barrier technique was used throughout the procedure. Sedation: None Technique: Local anesthetic was administered at the port site. A 2 cm transverse incision was made superior to the port. Catheter was removed from the vein via the subcutaneous tunnel. Hemostasis was achieved by applying direct pressure to the right neck. Blunt and sharp dissection used to remove, intact, the single-lumen port. Removal of the port reservoir, hub, and catheter were confirmed by their identification outside the patient. The wound was copiously irrigated with normal saline. The pocket was closed using a two-layer technique with 2-0 vicryl deep interrupted and 4-0 vicryl running subcuticular sutures. Skin closed with dermabond. Medications: Lidocaine 1% 10 mL subcut; lidocaine 2% with epinephrine 1:100,000 10 mL subcut Estimated blood loss: 5 mL Complications: No immediate Impression: Explantation of single-lumen right subcutaneous venous port with all components accounted for. Associate Provider (Custom Shop Worker): Joanna Bennett PA-C Attending of record: Arsen Rodriguez DO. I was not present. ?? 06/06/2022 Aletha Francois MD IMG IR ORDERABLES documented in this encounter Visit Diagnoses Diagnosis Status post chemotherapy Convalescence following chemotherapy documented in this encounter Administered Medications Inactive Administered Medications - up to 3 most recent administrations Medication Order MAR Action Action Date Dose Rate Site lidocaine (Xylocaine) 1% (10 mg/mL) injection 10 mg 10 mg, Subcutaneous, ONCE, 1 dose, On 06/06/22 at 1430, For use in Interventional Radiology (IR) only for procedure with direct provider supervision and verbal order., Angio/IR (Day of Procedure), Routine Given 06/06/2022 2:44 PM EDT 10 mg lidocaine-EPINEPHrine (2% - 1:100,000) injection vial 20 mL 20 mL, Intradermal, ONCE, 1 dose, On Mon06/06/22 at 1430, Warning Vesicant/Irritant Medication , Angio/IR (Day of Procedure), Routine Given 06/06/2022 2:45 PM EDT 20 mLs documented in this encounter Care Teams Lacing String Cutter Relationship Specialty Start Date End Date Deedee Cruz MD [address] [place] [id number] PCP - General Oncology 02/15/22 documented as of this encounter
--- OUTSIDE RECORDS SUMMARY | 2024-01-02 18:40 | XMS_ITS | Encounter Summary ---
Author Organization [facility] Address [facility] [place] [address] Care Team Providers Care Seismograph Supervisor Name Role Phone Sue Espinosa Primary Care Provider [phone] Reason for Visit * Reason Onset Date Comments Medication Refill 02/18/2022 Encounter Details Date Type Department Care Team (Late st Contact Info) Description 03/16/2021 Refill [place] [phone] Teri Torre RN Thrush of mouth and esophagus; Chemotherapy induced nausea and vomiting Social History Tobacco Use Types Packs/Day Years Used Date Smoking Tobacco: Never Smokeless Tobacco: Never Alcohol Use Standard Drinks/Week Comments Never 0 (1 standard drink = 0.6 oz pur e alcohol) Sex and Gender Information Value Date Recorded Sex Assigned at Not on file Gender Identity Not on file Sexual Orientation Not on file documented as of this encounter Miscellaneous Notes * Telephone Encounter - Teri Torre RN - 03/17/2021 5:04 PM EST Called patient to assess how she is doing and to see if she has been able to get the magic mouth wash rx. She states her is on his way to pick it up. She denies any questions or concerns at this time. Advised patient to reach out to clinic at any time. * Telephone Encounter - Teri Torre RN - 03/17/2021 11:26 AM EST Called patient to assess how she is doing today. She states she's feeling better and does not want an infusion of fluids. Advised patient to let us know if she starts to feel worse again so we can rearrange this if needed. She states she is adding things other than water to her fluid intake. She's eating some jello frequently. She states she is still feeling weak, but had a good night's sleep last night and can feel she's going in the right direction. Informed patient that we are working on the magic mouthwash rx and we will cancel the infusion. Shedenies any questions or concerns at this time. * Telephone Encounter - Teri Torre RN - 03/17/2021 9:39 AM EST Called [facility] Infusion. They can take the patient for infusion. Would need the order faxed to [phone]. Called [facility] to have them advise on magic mouthwash prescription. Prescription pended to Dr. Francois. * Telephone Encounter - Teri Torre RN - 03/16/2021 4:43 PM EST Received [facility] message from patient. Called patient to assess. She states the last cycle was rough. She vomited on Monday and since then, has been feeling like she needs to throw up but can't. She was taking the prochlorperazine for the first three days. Now she's only taking the ondansetron every 8 hours, but feels it's not working. She's needing to choke things down in order to get fluids or food intake. She has been drinking 16 oz x4 of water in a day. She reports difficulty eating. She states she's eating like nothing. She had some noodles over the weekend but having trouble eating anything else. She reports feeling very weak. She states her has to help her to the bathroom by pushing her on her walker. She states she feels dizzy if she moves too quickly. Discussed patient with Dr. Francois. Plan: Patient can continue to take the prochlorperazine every 6 hours as needed, ondansetron every 8 hours as needed, and she can take her dexamethasone every [address] Francois wrote for asmall rx of lorazepam for breakthrough nausea. Will refer patient to outpatient infusion for fluids. Will pend a rx for magic mouthwash for patient's thrush. Relayed all of this information to the patient. She verbalized understanding and denies any furtherquestions or concerns at this time. * Telephone Encounter - Teri Torre RN - 03/16/2021 4:42 PM EST ----- Message from Sarah Grewal RN sent at 03/16/2021 4:11 PM EST ----- Regarding: FW: Labs ----- Message ----- From: Dalia Mcfarlane Sent: 03/16/2021 3:55 PM EST To: [facility] Consultant Nurse Subject: Labs Good afternoon Evelyn! For my last chemo the drip was slowed down to try to fix the numbness and my fingers and toes. It did not work. For my next and last treatment can it be the full amount. It alsotook an additional 3 hours. So stressful. The nurses had to stay late. I felt bad. The nausea &vomiting this time is bad. I???m using ondansetron with little effect. Also keeping a light diet. Just to give you a heads up. Thank you Dalia documented in this encounter Plan of Treatment Not on file documented as of this encounter Visit Diagnoses Diagnosis Thrush of mouth and esophagus Candidiasis of the esophagus Chemotherapy induced nausea and vomiting Nausea with vomiting documented in this encounter Care Teams Seismograph Supervisor Relationship Specialty Start Date End Date Sue Espinosa PA [address] [place] [id number] PCP - General Family Medicine 11/09/20 02/14/22 documented as of this encounter
--- OUTSIDE RECORDS SUMMARY | 2024-01-02 18:40 | XMS_ITS | Encounter Summary ---
Author Organization [facility] Address [facility] [place] [address] Care Team Providers Care Suspension Cord Tier Name Role Phone Sue Espinosa Primary Care Provider [phone] Reason for Visit * Reason Comments Established 3 mth ck Encounter Details Date Type Department Care Team (Late st Contact Info) Description 10/18/2021 9:20 AM EDT Office Visit Gy[place] [id number] Aletha Francois MD [facility] [address] [place] [address] Ovary cancer, right Social History Tobacco Use Types Packs/Day Years [...] Sign Reading Time Taken Comments Blood Pressure 126/66 10/18/2021 9:36 AM EDT Pulse 100 10/18/2021 9:36 AM EDT Temperature 36.5 ??C (97.7 ??F) 10/18/2021 9:36 AM ED T Respiratory Rate 12 10/18/2021 9:36 AM EDT Oxygen Saturation 99% 10/18/2021 9:36 AM EDT Inhaled Oxygen Concentration - - Weight 74.4 kg (164 lb) 10/18/2021 9:36 AM EDT Height 165.1 cm (5' 5) 10/18/2021 9:36 AM EDT Body Mass Index 27.29 10/18/2021 9:36 AM EDT documented in this encounter Progress Notes * Aletha Francois MD - 10/18/2021 9:20 AM EDT Images from the original note were not included. GYNECOLOGIC ONCOLOGY OUT PATIENT FOLLOW UP Date: 10/18/21 Name: Dalia Mcfarlane : 1955 [facility]: [id number] Patient Care Team: Patient Care Team: Sue Espinosa PA as PCP - General (Family Medicine) Dr Deedee Cruz [address] [place], [place] CHIEF COMPLAINT Left ovarian cancer Chemotherapy follow up HISTORY OF PRESENT ILLNESS Dalia Mcfarlane is a 66 y.o. 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 Patient endorses acute onset abdominal pain and presented to ED [facility] 11/06/20 associated with some nausea. Patient reports prior episode 10 years earlier and diagnosis with UTI and treated with antibiotic. Surgery 11/19/20 optimal debulking total abdominal hysterectomy bilateral salpingo-oophorectomy omentectomy Last cycle 04/03 s/p 6 cycles Last visit: 08/01 Interval history: 1. Patient noted some nail changes between last visit which are better now 2. 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 Chronic imbalance that has necessitated safety bars in the house for 4 years 4. November 5. History fibromyalgia 20 years ago, chronic fatigue. Able to go out and and around town Family visiting this summer No further nausea, normal bowel movement Here with today. Continues with fatigue Nausea typically in AM, resolves with compazine as needed 3 times last week. If does not take compazine she will throw up mostly spit, does not bother her rest of the day. Eating less well now, but does eat. Patient does get around house. Still has pain in lower back and numbness amitriptyline and neurontin 600 mg four times daily for her overall body aches. Patient remains off narcotics Plans have family from [place] come and see family. Plan see then in December. Patient able to do errands and get out of house. mediport in place and working well. Patient plans to get it flushed closer to home in [facility].May 26, 2021 scheduled to have it flushed. COVID vaccinated. Performance Status: 0 Oncology History She denies abnormal vaginal bleeding, discharge or unusual pelvic pain, no dysuria, frequency or hematuria. no trouble urinating, blood in urine, pain with urination, urinary incontinence Review of Systems Review of Systems Pertinent positives and negatives noted in HPI. All others reviewed and negative. Health Care Maintenance LMP: 46 Last Pap: > 5 years Last Mammogram: 06/01 Last Colorectal Screen: > 10 years ago IMAGING AND LAB REVIEW I personally reviewed labs/radiology reports/pathology tests and other supporting records as part of my consultation today with the patient. CA 125 = 13 06/18/21 [facility] [place] 04/26/21 Vasculature: Patent portal veins. Smooth-walled normal caliber aorta. Lymph Nodes: No pathologically enlarged inguinal, deep pelvic, retroperitoneal nor mesenteric lymph nodes. Bowel: Normal caliber loops of small and large bowel without mural thickening. Previously noted small bowel loops have decompressed. Peritoneum and mesentery: Postsurgical changes, right pelvic sidewall hematoma and perihepatic collection have resolved. No free air. No loculated fluid collection. No ascites. No omental caking. No peritoneal nodularity. Abdominal wall: Healed midline incision ?? Reproductive organs: Uterus is absent Osseous structures: No suspicious lesions. ?? IMPRESSION ?? No metastatic disease in the abdomen or pelvis. Postsurgical changes have resolved. ??labs done at [facility] 11/01 CA 125= 7 per CA 125 = 18 04/26/21 CA 125= 14 03/30/21 CA 125 = 10 03/09/21 CA 125 = 13 02/15/21 [facility] [place] [place] Left ovary (partial oophorectomy): ? Ovarian clear cell adenocarcinoma with tumor ? necrosis. B - Left ovary #2 (oophorectomy): ? Ovarian clear cell adenocarcinoma with tumor ? necrosis associated with cystic ovarian endometriosis. C - Right fallopian tube and ovary (salpingo-oophorectomy): ? 1. Ovarian and fabian-adnexal endometriosis. ? 2. Benign fallopian tube with adhesions ?and paratubal cysts. D - Left fallopian tube (salpingectomy): ? Benign fallopian tube with adhesions ? and paratubal cysts. E - Left ovary #3 (partial oophorectomy): ? Ovarian clear cell adenocarcinoma with tumor ? necrosis. F - Uterus (hysterectomy): ? 1. Benign endometrial polyp. ? 2. Adenomyosis. ? 3. Benign inactive endometrium. ? 4. Uterine serosal adhesions with ?hemosiderin-laden macrophages. ? 5. Benign cervix. G - Left uterosacral nodule: ? 1. Organizing nodular foci containing ?hemosiderin-laden macrophages. ? 2. No evidence of malignancy. H - Left gutter biopsy: ? No evidence of malignancy. I - Right gutter biopsy: ? No evidence of malignancy. J - Bladder biopsy: ? No evidence of malignancy. K - Left pelvic lymph nodes, excision: ? Three lymph nodes, no evidence of malignancy (0/3). L - Left para-aortic lymph nodes, excision: ? Two lymph nodes, no evidence of malignancy (0/2). M - Right pelvic lymph nodes, excision: ? Five lymph nodes, no evidence of malignancy (0/5). ? N - Omentum #1: ? No evidence of malignancy. O - Omentum #2: ? No evidence of malignancy. P - Left diaphragm: ? No evidence of malignancy. Q - Right diaphragm: ? No evidence of malignancy. R - Omentum #3: ? 1. No evidence of malignancy. ? 2. Small benign lymph node. Negative cytology TVS 11/06/[address] [facility] [address] ABD/PELVIS [facility] ED 11/06/20 Labs Creatinine 1.0 Normal LFT Total protein 7.9. 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 CURRENT MEDICATIONS Current Outpatient Medications Medication Instructions ??? acetaminophen (TYLENOL) 650 mg, Oral, EVERY 6 HOURS ??? amitriptyline (Elavil) 10 mg Tablet No dose, route, or frequency recorded. ??? gabapentin (NEURONTIN) 600 mg Tablet TAKE ONE TABLET BY MOUTH FOUR TIMES A DAY ??? lidocaine-prilocaine (EMLA) Cream Place on skin over port site ~ 1-hour prior to access for labs or chemo. ??? lisinopriL (Zestril) 5 mg Tablet No dose, route, or frequency recorded. PHYSICAL EXAM There were no vitals taken for this visit. BP 126/66 (Patient Position: Sitting) Pulse 100 Temp 36.5 ??C (97.7 ??F) (Temporal) Resp 12 Ht 165.1 cm (5' 5) Wt 74.4 kg (164 lb) SpO2 99% BMI 27.29 kg/m?? Exam GENERAL: Well-appearing, female in no acute distress. HENT: Moist mucous membranes. No adenopathy. NECK: NO masses of thyroid or assymetry. ABD: soft no distention PELVIC: Normal external genitalia smooth vagina uterus cervix and adnexa surgically absent, moderate discomfort with exam vaginal vault well suspended no masses or nodularity normal rectal tone Genetic Testing Negative germline testing Advance Directives Reviewed with patient on 11/13/[address], DPOE ASSESSMENT/PLAN I have reviewed old records and notes from [facility] and Care Everywhere, as appropriate, in summarizing the patient's prior relevant history to make my assessment and to formalize my recommended plan of care. Ovarian cancer stage Ic clear cell carcinoma S/p hyst BSO and staging Chemotherapy induced neutropenia Chemotherapy follow up Taxol reaction Chemotherapy associated neuropathy Patient completed 6 cycles chemotherapy taxol carboplatin intravenous and she is feeling stronger now that chemotherapy is complete. We discussed continuing B6 and alpha lipoic acid for her chemotherapy related neuropathy, and the natural history of neuropathy. Imaging post 6 cycles of chemotherapy with CT due to history of normal preoperative CA on 125. We discussed in detail that we will use exam, tumor markers and symptoms as guide in the future to assess her disease status, and likely we will use imaging again in the future. D/w the plan for q 4-6 months surveillance with CA 125 and pelvic exam. D.w them at length rationale for pelvic exams to monitor. Patient finds pelvic exams very uncomfortable and we plan to do them every other visit. Port will remain in place for longer period observation and has arranged for flushing locally q 4-6weeks. We d.iscussed consideration of removing the Mediport in 2022 if the patient continues to remain without any evidence of disease and feeling well Reviewed CBC and chem panel with patient, both normal and no need to repeat with subsequent visit unless change in symptoms. Patient to follow with pcpc. Genetic testing. - Genetics done negative. Pain Patient has discontinued her opioids under the guidance of her PCP and RTC 3-6 months for follow up visit with CA 125. I personally spent a total of 30 minute visit in counseling and coordinating care for Dalia Mcfarlane. We discussed the plan and rationale for ongoing surveillance. Signed, Aletha Francois MD 10/18/2021 documented in this encounter Plan of Treatment Not on file documented as of this encounter Visit Diagnoses Diagnosis Ovary cancer, right documented in this encounter Care Teams Suspension Cord Tier Relationship Specialty Start Date End Date Sue Espinosa PA [address] [place] [id number] PCP - General Family Medicine 11/09/20 02/14/22 documented as of this encounter
--- OUTSIDE RECORDS SUMMARY | 2024-01-02 18:40 | XMS_ITS | Encounter Summary ---
Author Organization [facility] [place] [address] Care Team Providers Care Director Of Assisted Living Name Role Phone Deedee Cruz MD Primary Care Provider [phone] Encounter Details Date Type Department Care Team (Late st Contact Info) Description 05/04/2022 Telephone [place] [address] Debra Dotson Social History Tobacco Use Types Packs/Day Years Used Date Smoking Tobacco: Never Smokeless Tobacco: Never Alcohol Use Standard Drinks/Week Comments Never 0 (1 standard drink = 0.6 oz pur e alcohol) Sex and Gender Information Value Date Recorded Sex Assigned at Not on file Gender Identity Not on file Sexual Orientation Not on file documented as of this encounter Plan of Treatment Not on file documented as of this encounter Visit Diagnoses Not on filedocumented in this encounter Care Teams Director Of Assisted Living Relationship Specialty Start Date End Date Deedee Cruz MD [address] [place] [address] PCP - General Oncology 02/15/22 documented as of this encounter
--- OUTSIDE RECORDS SUMMARY | 2024-01-02 18:40 | XMS_ITS | Encounter Summary ---
[place] [address] Care Team Providers Care Direct Mail Marketer Name Role Phone Sue Espinosa Primary Care Provider Encounter Details Date Type Department Care Team (Late st Contact Info) Description 04/06/2021 Orders Only [facility] [place] [address] Teri Torre RN Ovary cancer, right Social History Tobacco Use [...] right documented in this encounter Care Teams Direct Mail Marketer Relationship Specialty Start Date End Date Sue Espinosa PA [address] [place] [id number] PCP - General Family Medicine 11/09/20 02/14/22 documented as of this encounter
--- OUTSIDE RECORDS SUMMARY | 2024-01-02 18:40 | XMS_ITS | Encounter Summary ---
[place] [address] Care Team Providers Care Core Manager Name Role Phone Sue Espinosa Primary Care Provider [phone] Encounter Details Date Type Department Care Team (Late st Contact Info) Description 01/06/2022 Orders Only Hematology [place] [address] Tana Lazo Social History Tobacco Use Types Packs/Day Years [...] on filedocumented in this encounter Care Teams Core Manager Relationship Specialty Start Date End Date Sue Espinosa PA [address] [place] [address] PCP - General Family Medicine 11/09/20 02/14/22 documented as of this encounter
--- OUTSIDE RECORDS SUMMARY | 2024-01-02 18:40 | XMS_ITS | Encounter Summary ---
Author Organization [facility] [place] [address] Care Team Providers Care Drafter Civil Engineering Name Role Phone Sue Espinosa Primary Care Provider [phone] Encounter Details Date Type Department Care Team (Late st Contact Info) Description 03/11/2021 Orders Only [place] [address] Aletha Francois MD [facility] [address] [place] [address] Social History Tobacco Use Types Packs/Day Years [...] on filedocumented in this encounter Care Teams Drafter Civil Engineering Relationship Specialty Start Date End Date Sue Espinosa PA [address] [place] [id number] PCP - General Family Medicine 11/09/20 02/14/22 documented as of this encounter
--- OUTSIDE RECORDS SUMMARY | 2024-01-02 18:40 | XMS_ITS | Encounter Summary ---
Author Organization [facility] Address [facility] [place] [address] Care Team Providers Care Chemist Instrumentation Name Role Phone Sue Espinosa Primary Care Provider [phone] Encounter Details Date Type Department Care Team (Late st Contact Info) Description 04/01/2021 Orders Only [place] [address] Aletha Francois MD [facility] DR OBSTETRICS [place] [address] Social History Tobacco Use Types Packs/Day Years [...] on filedocumented in this encounter Care Teams Chemist Instrumentation Relationship Specialty Start Date End Date Sue Espinosa PA [address] [place] [phone] PCP - General Family Medicine 11/09/20 02/14/22 documented as of this encounter
--- OUTSIDE RECORDS SUMMARY | 2024-01-02 18:40 | XMS_ITS | Encounter Summary ---
[place] [address] Care Team Providers Care Christian Science Nurse Name Role Phone Sue Espinosa Primary Care Provider [phone] Encounter Details Date Type Department Care Team (Late st Contact Info) Description 06/09/2021 Orders Only [facility]cology [facility] [place] [address] Shannon Hebert, YVES Ovary cancer, right; Ovary cancer, left Social History Tobacco Use Types Packs/Day Years [...] encounter Visit Diagnoses Diagnosis Ovary cancer, right Ovary cancer, left documented in this encounter Care Teams Christian Science Nurse Relationship Specialty Start Date End Date Sue Espinosa PA [address] [place] [phone] PCP - General Family Medicine 11/09/20 02/14/22 documented as of this encounter
--- OUTSIDE RECORDS SUMMARY | 2024-01-02 18:40 | XMS_ITS | Encounter Summary ---
Author Organization [facility] [place] [address] Care Team Providers Care Consumer Product Advisor Name Role Phone Sue Espinosa Primary Care Provider [phone] Encounter Details Date Type Department Care Team (Latest Contact Info) Description 02/09/2022 Travel Social History Tobacco Use Types Packs/Day Years [...] on filedocumented in this encounter Care Teams Consumer Product Advisor Relationship Specialty Start Date End Date Sue Espinosa PA [address] [place] [phone] PCP - General Family Medicine 11/09/20 02/14/22 documented as of this encounter
--- OUTSIDE RECORDS SUMMARY | 2024-01-02 18:40 | XMS_ITS | Encounter Summary ---
Author Organization [facility] [place] [address] Care Team Providers Care Dry Boss Name Role Phone Sue Espinosa Primary Care Provider [phone] Encounter Details Date Type Department Care Team (Late st Contact Info) Description 01/26/2021 Orders Only [place] [address] Aletha Francois MD [facility] DR [place] [address] Social History Tobacco Use Types Packs/Day Years [...] on filedocumented in this encounter Care Teams Dry Boss Relationship Specialty Start Date End Date Sue Espinosa PA [address] [place] [phone] PCP - General Family Medicine 11/09/20 02/14/22 documented as of this encounter
--- OUTSIDE RECORDS SUMMARY | 2024-01-02 18:40 | XMS_ITS | Encounter Summary ---
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 A copy of the test results have been scanned in the medical record and sent to Dalia. A summary of the results is provided below. Please beadvised that [place] law requires that all health care workers respect the confidentiality ofthis information and not pass it along to other health care providers, insurance companies, or individuals without the written permission of the patient. The Famil[facility] Cancer [facility] welcomes any questions about these matters. Our phone number is: [phone]. On 02/10/2021 Dalia was seen for genetic counseling and subsequently underwent genetic testing fora hereditary predisposition to cancers in eight major organ systems including breast, gynecologic, gastrointestinal, endocrine, genitourinary, skin, brain/nervous system, sarcoma and hematologic. Following are the results of this test. 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 No other mutation was detected. The following 84 genes were evaluated for sequence changes and exonic deletions/duplications: AIP, ALK, APC, MYNOR, AXIN2, BAP1, BARD1, BLM, BMPR1A, BRCA1, BRCA2, BRIP1, CASR, CDC73, CDH1, CDK4, CDKN1B, CDKN1C, CDKN2A (p14ARF), CDKN2A (k51PQL1T), CEBPA, CHEK2, CTNNA1, DICER1, DIS3L2, EGFR,EPCAM (Deletion/duplication testing only), FH, FLCN, GATA2, GPC3, GREM1 (Promoter region deletion/duplication testing only), HOXB13, HRAS, KIT, MAX, MEN1, MET, MITF, (c.952G>A,P.Rrx752Isi variant only), MLH1, MSH2, MSH3, MSH6, MUTYH, NBN, NF1, NF2, NTHL1, PALB2, PDGFRA, PHOX2B, PMS2, POLD1, POLE, POT1, YFHHD5Y, PTCH1, PTEN, RAD50, RAD51C, RAD51D, RB1, RECQL4, RET, RUNX1, SDHA, SDHAF2, SDHB, SDHC, SDHD, SMAD4, SMARCA4, SMARCB1, SMARCE1, STK11, SUFU, TERC, TERT, AZUS214, TP53, TSC1, TSC2, VHL,WRN, and WT1. Interpretation: Re: ovarian cancer This test did not identify an underlying genetic cause for the personal history of ovarian cancer. Possible explanations for this negative test result include: ?? Dalia's cancer may be due to non genetic, environmental causes. ?? There could be mutations in other cancer genes not included in this test, or in genes yet to be discovered. ?? There is a very small chance that a pathogenic variant/mutation could be missed due to limitations in the testing. Additional genetic testing for Dalia is not recommended at this time. 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 Sherman syndrome occurs when an individual inherits a pathogenic mutation from BOTH parents. Sherman syndrome is a childhood condition that results in small stature, sensitivity to the sun, distinctive facial features and significant increase in risk for many types of cancer. They may also have learning problems and infertility. There is some very preliminary evidence that having oneBLM mutation may increase the risk for colorectal cancer, but this association has not been proven. Dalia's three siblings each have a 50% chance of having inherited the mutation in the BLM gene. There is no indication for her two siblings who do not have children to have testing for this. Dalia has one niece who has had 3 children. Dalia's niece could consider testing to determine if her children are at risk for having inherited the mutation in the BLM gene. If her niece is found to have the mutation, or if she opts not to have testing, before starting their own families, her niece's children may wish to have testing to determine if they have inherited the mutation in the BLM gene. BLM gene analysis is included in many broad carrier screening panels currently offered to individualsplanning a or early in their . If an individual is found to have the BLM mutation, their partner may wish to consider testing to determine if they are at risk for having a child with Sherman syndrome. If a couple both have a BLM mutation then each of their children will have a 25% or 1/4 chance of being born with Sherman syndrome. Reproductive options are available to those interested in preventing passing this condition to their future children. A consultation with a genetic counselor may be warranted for family members who have reproductive concerns. Dalia's other relatives on both sides of the family should also be informed of this finding so they can consider testing for themselves to learn if they are at risk for having a child affected withBloom syndrome. Screening Recommendations Based on genetic test results and personal and/or family history, we recommend: Breast cancer screening ?? Be aware of any breast changes and share concerns with primary care provider ?? Annual clinical breast exams ?? Mammograms every 1-2 years Gynecologic cancer ?? Treatment and follow-up as recommended by Dalia's oncologists. Colon cancer screening ?? Baseline colorectal cancer screening starting by age 50 is important for everyone, regardless ofgenetic predisposition. If Dalia hasn't begun screening yet she should discuss the available screening options with her primary care provider. Skin cancer screening ?? Skin cancer screening and sun protection are important for everyone, regardless of genetic predisposition. ?? Consideration of routine dermatologic/skin exams, as recommended by Dalia's primary care provider or painter and body mechanic apprentice. documented in this encounter Plan of Treatment Not on file documented as of this encounter Visit Diagnoses Not on filedocumented in this encounter Care Teams Order Fulfillment Specialist Relationship Specialty Start Date End Date Sue Espinosa PA [address] [place] [id number] PCP - General Family Medicine 11/09/20 02/14/22 documented as of this encounter
--- OUTSIDE RECORDS SUMMARY | 2024-01-02 18:40 | XMS_ITS | Encounter Summary ---
Author Organization [facility] [place] [address] Care Team Providers Care Fruit Harvester Machine Operator Name Role Phone Sue Espinosa Primary Care Provider [phone] Encounter Details Date Type Department Care Team (Late st Contact Info) Description 03/22/2021 Orders Only [place] [address] Aletha Francois MD [facility] DR OBSTETRICS [place] [address] Hypokalemia due to inadequate potassium intake Social History Tobacco Use Types Packs/Day Years [...] as of this encounter Visit Diagnoses Diagnosis Hypokalemia due to inadequate potassium intake documented in this encounter Care Teams Fruit Harvester Machine Operator Relationship Specialty Start Date End Date Sue Espinosa PA [address] [place] [id number] PCP - General Family Medicine 11/09/20 02/14/22 documented as of this encounter
--- OUTSIDE RECORDS SUMMARY | 2024-01-02 18:40 | XMS_ITS | Encounter Summary ---
Author Organization [facility] Address [facility] [place] [address] Care Team Providers Care Global Position System Technician Name Role Phone Sue Espinosa Primary Care Provider [phone] Reason for Visit * Reason Comments Chemotherapy Encounter Details Date Type Department Care Team (Late st Contact Info) Description 02/18/2021 10:40 AM EST Office Visit [place] [address] Aletha Francois MD [facility] DR OBSTETRICS [place] [address] Ovary cancer, right; Left ovarian epithelial cancer; Hypersensitivity reaction, sequela; S/P ECTOR-BSO (total abdominal hysterectomy and bilateral salpingo-oophorectomy ); Educational circumstance; Chemotherapy induced neutropenia; Chemotherapy follow-up examination Social History Tobacco Use Types Packs/Day Years [...] Sign Reading Time Taken Comments Blood Pressure 143/100 02/18/2021 10:23 AM EST Pulse 131 02/18/2021 10:23 AM EST Temperature 36.7 ??C (98.1 ??F) 02/18/2021 10:[address] Respiratory Rate 18 02/18/2021 10:23 AM EST Oxygen Saturation 98% 02/18/2021 10:23 AM EST Inhaled Oxygen Concentration - - Weight 67 kg (147 lb 11.3 oz) 02/18/2021 10:23 A M EST Height 165.1 cm (5' 5) 02/18/2021 10:23 AM EST Body Mass Index 24.58 02/18/2021 10:23 AM EST documented in this encounter Progress Notes * Aletha Francois MD - 02/18/2021 10:40 AM EST Images from the original note were not included. GYNECOLOGIC ONCOLOGY OUT PATIENT FOLLOW UP Date: 02/18/2021 Name: Dalia Tavera : 1955 CSN: [id number] Patient Care Team: Patient Care Team: Sue Espinosa PA as PCP - General (Family Medicine) CHIEF COMPLAINT Left ovarian cancer Chemotherapy follow up, cycle #4 scheduled for today HISTORY OF PRESENT ILLNESS Dalia Tavera is a 65 y.o. 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 Patient endorses acute onset abdominal pain and presented to ED [facility] 11/06/20 associated with some nausea. Patient reports prior episode 10 years earlier and diagnosis with UTI and treated with antibiotic. Surgery 11/19/20 optimal debulking total abdominal hysterectomy bilateral salpingo-oophorectomy omentectomy Here with today. Last visit: 01/28/21 Interval history 1. Thrush mouth which affected her taste, used Listerine and OTC washes which cleared white patchesaway, especially on tip tongue 2. Nausea using compazine, but more nausea this cycle tried throw up once 3. Bowel movement regular Neuropathy fingers hand none feet using B6, unable tolerate glutamine 4. Pain meds Sue AVALOS to help adjust using twice daily overall body aches. Patient off norco and trying amitriptyline for numbess and body aches 5. Patient remains on onpro no issues 6. Patient saw Genetics for consultation sent in swab test Patient reports she is feeling better and doing more at home but sleep still an issue, falling asleep and the Wakes and stays up. Great appetite and energy level better. Bowel movement every day sometimes twice day Had mediport placed with some minimal tenderness Eating well great appetite Doing laundry, knitting and moving well at home COVID vaccinated. Performance Status: 0 Oncology History She denies abnormal vaginal bleeding, discharge or unusual pelvic pain, no dysuria, frequency or hematuria. no trouble urinating, blood in urine, pain with urination, urinary incontinence Review of Systems Review of Systems Pertinent positives and negatives noted in HPI. All others reviewed and negative. Health Care Maintenance LMP: 46 Last Pap: > 5 years Last Mammogram: 2 years ago Last Colorectal Screen: > 10 years ago IMAGING AND LAB REVIEW I personally reviewed labs/radiology reports/pathology tests and other supporting records as part of my consultation today with the patient. Results for DALIA TAVERA ( ) as of 01/30/2021 14:47 PREOP Ref. Range 11/13/2020 16:56 CA 125 Latest Ref Range: <=38.1 unit/mL 19.6 CA 125 = 13 02/15/21 [facility] [place] Left ovary (partial oophorectomy): ? Ovarian [...] benign lymph node. Negative cytology TVS 11/06/20 [facility] N CT ABD/PELVIS [facility] ED 11/06/20 Labs Creatinine 1.0 Normal LFT Total protein 7.9. 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 CURRENT MEDICATIONS Current Outpatient Medications Medication Sig Dispense Refill No current facility-administered medications for this visit. PHYSICAL EXAM BP (!) 143/100 Pulse (!) 131 Temp 36.7 ??C (98.1 ??F) (Temporal) Resp 18 Ht 165.1 cm (5' 5) Wt 67 kg (147 lb 11.3 oz) SpO2 98% BMI 24.58 kg/m?? Exam: GENERAL: Well-appearing, female in no acute distress. HENT: Moist mucous membranes. No adenopathy. NECK: NO masses of thyroid or assymetry. FREDDIE SURVEY: NO masses or asymmetry or tenderness. CARDIOVASCULAR: Chest expands symmetrically without any labored breathing. Port in place. BREASTS: No masses, adenopathy or asymmetry AXILLA: No masses or adnoepathy ABDOMEN: Soft, nontender, nondistended. No HSM, tenderness or ascites. No masses or rebound. EXTREMITIES: Warm, well perfused. No edema. SKIN: NO rashes or excoriations NEURO: CN 2-12 grossly intact and the patient responds to questions appropriately in Chilean. PELVIC EXAM: deferred Genetic Testing pending Advance Directives Reviewed with patient on 11/13/[address], DPOE ASSESSMENT/PLAN I have reviewed old records and notes from e[facility] and Care Everywhere, as appropriate, in summarizing the patient's prior relevant history to make my assessment and to formalize my recommended plan of care. Ovarian cancer stage Ic clear cell carcinoma S/p hyst BSO and staging Chemotherapy induced neutropenia Chemotherapy follow up Taxol reaction Patient is tolerating chemotherapy well and her energy and activities are increasing. Patient had taxol reaction which was managed with slowed infusion rate. We have pre-medicated with prednisone, which patient has tolerated well for past 2 cycles. Plan to continue onpro for patient this cycle due to her neutropenia in last cycle. Patient did nothave fevers associated with neutropenia, but due to co- morbidities, I feel it is appropriate to optimize patient WBC martine with chemotherapy. We discussed the side effects of these medications and rationale for their use. Plan to continue with chemotherapy taxol carboplatin intravenous today, labs cleared. Plan for 6 cycles taxol carboplatin intravenous chemotherapy. We will consider repeat imaging post 6 cycles of chemotherapy to better assess tumor response givenhistory of normal preoperative CA on 125 if any new symptoms or findings on exam. I discussed this in detail with the patient and her today as well as the rationale for imaging. Genetic testing In view of the patient's personal cancer history of ovarian cancer, I have recommended consideration of genetic testing. We discussed at length the risks, benefits and rationale for performing genetic testing to better inform our decision making regarding the role of risk reducing strategies for any other cancers, as well as the impact on the patient's family members. Finally we discussed that the testing would be most informative of an increased predisposition to cancer in the context of an affected individual with a documented. Mutation. - Genetics referral done, await results Pain I discussed with the patient and her my conversation with her PCP Sue Buckner and plansto have all subsequent pain medication including Ativan coordinated through her PCP. I reviewed with them the goals of care and that there should not be significant pain at this point due to her chemotherapy and she has recovered well from surgery. Patient has no discontinued her opioids under the guidance of her PCP with good effect.. I have shared this information with my colleagues and team members who understand they will not prescribe any further narcotic prescriptions or Ativan for Dalia. I personally spent a total of 30 minute visit in counseling and coordinating care for Dalia Tavera. We discussed the plan and rationale for ongoing surveillance. Signed, Aletha Francois MD 02/18/2021 documented in this encounter Plan of Treatment Not on file documented as of this encounter Visit Diagnoses Diagnosis Ovary cancer, right Left ovarian epithelial cancer Hypersensitivity reaction, sequela S/P ECTOR-BSO (total abdominal hysterectomy and bilateral salpingo-oophorectomy) Acquired absence of both cervix and uterus Educational circumstance Chemotherapy induced neutropenia Drug induced neutropenia Chemotherapy follow-up examination documented in this encounter Care Teams Global Position System Technician Relationship Specialty Start Date End Date Sue Espinosa PA [address] [place] [id number] PCP - General Family Medicine 11/09/20 02/14/22 documented as of this encounter
--- OUTSIDE RECORDS SUMMARY | 2024-01-02 18:40 | XMS_ITS | Encounter Summary ---
Author Organization [place] [address] Care Team Providers Care Remediation Consultant Name Role Phone Sue Espinosa Primary Care Provider [phone] Reason for Visit * Treatment/Therapy Plan Authorization (Routine) - Closed Specialty Diagnoses / Procedures Referred By Contgenaro t Referred To Contact Hematology and Oncology Diagnoses Ovary cancer, right Ovary cancer, left Aletha Francois MD [facility] [address] [place] [address] [facility] [address] [place] [address] Referral ID Status Reason Start Date Expiration Date Visits Re quested Visits Authorized [id number] Closed 12/07/2020 12/07/2021 99 99 Encounter Details Date Type Department Care Team (Latest Contact Info) Description 03/11/2021 8:17 AM EST - 03/11/2021 11:59 PM [facility] Encounter Hematology [place] [address] Ovary cancer, right; Ovary cancer, left Discharge Disposition: Home Social History Tobacco Use Types Packs/Day Years Used Date Smoking Tobacco: Never Smokeless Tobacco: Never Alcohol Use Standard Drinks/Week Comments Never 0 (1 standard drink = 0.6 oz pur e alcohol) Sex and Gender Information Value Date Recorded Sex Assigned at Not on file Gender Identity Not on file Sexual Orientation Not on file documented as of this encounter Medications at Time of Discharge Medication Sig Dispensed Refills Start Date End Date lisinopriL (Zestril) 5 mg Tablet 03/06/2021 amitriptyline [...] BY MOUTH FOUR TIMES A DAY 11/03/2020 pyridoxine, vitamin B6, (B-6) 100 mg Tablet Take 100 mg by mouth as needed. 10/18/2021 dexamethasone (Decadron) 4 mg TabletIndications:Hyp ersensitivity reaction, initial encounter Take 20 mg (5 tablets) 12- and 6-hours prior to chemotherapy. 60 tablet 1 12/18/2020 10/18/2021 UNABLE TO FIND Glutamine: Please take 15 grams twice daily for 4 days following chemotherapy treatments. Vitamin B6 (Pyridoxine): Take 50 mg by mouth two times per day (or 100 mg once daily) continuously throughout your chemotherapy treatment with Paclitaxel. Qvali-Gaxloo-Cymv (ALA): Take 600 mg by mouth daily. 05/13/2021 prochlorperazine (Compazine) 10 mg TabletIndications:Caroline motherapy induced nausea and vomiting Take 1 tablet twice daily on schedule for 3 days after chemo. May use up to every 6-hours as needed for nausea and vomiting. 60 tablet 5 12/07/2020 10/18/2021 ondansetron (Zofran) 8 mg TabletIndications:Caroline motherapy induced nausea and vomiting Take 1 tablet by mouth every 8 hours as needed for Nausea (Do NOT take in the first 3-days after chemo.). 20 tablet 5 12/07/2020 10/18/2021 LORazepam (Ativan) 0.5 mg TabletIndications:Caroline motherapy induced nausea and vomiting Take 1 tablet by mouth every 6 hours as needed (breakthrough nausea or vomiting.). 20 tablet 1 12/07/2020 03/16/2021 diphenhydrAMINE (Benadryl) 50 mg Capsule Take 50 mg by mouth as needed. Take 50 mg as needed for motion sickness 11/23/2020 10/18/2021 senna-docusate (Pericolace) 8.6-50 mg Tablet Take 1 tablet by mouth 2 times daily as needed for Constipation. Please take this if you are using oxycodone 60 tablet 11/26/2020 10/18/2021 dimenhyDRINATE (Dramamine) 50 mg Tablet Take 50 mg by mouth as needed. Pt does take for long car rides maybe 2x per year 10/18/2021 documented as of this encounter Progress Notes * Naa Tamayo RN - 03/11/2021 6:25 PM EST Carboplatin administered and Onpro applied. * Laura Wheeler RN - 03/11/2021 2:53 PM EST Patient Name: Dalia Mcfarlane Patient Age: 65 y.o. Birthdate: 1955 Admit date: 03/11/2021 Attending Physician: No att. providers found TIME TREATMENT STARTED: 1020 TIME TREATMENT ENDED: 1744 care transferred to Chelita Tamayo RN Dalia Mcfarlane, 65 y.o. female with diagnosis of ovarian cancer is here for chemotherapy infusion of taxol/Carbo. PROTOCOL: na CYCLE: 5 WEEK: na DAY: 1 S: Pt. offers no complaints at this time. O: Chemotherapy orders independently verified for correct drug name, route and dosage per patient'sheight, weight and BSA by Laura Wheeler RN and onsite pharmacist REACTIONS (DESCRIPTION, TIME, INTERVENTION AND EFFECTIVENESS) none A: Pt. Tolerated treatment well. Dalia Mcfarlane confirms that all questions and issues have been addressed. P: Return to clinic per routine documented in this encounter Miscellaneous Notes * Addendum Note - Madelin Hdz RN - 03/11/2021 6:33 PM ESTEncounter addended by: Madelin Hdz RN on: 03/11/2021 6:33 PM Actions taken: MAR administration edited, MAR administration accepted documented in this encounter Plan of Treatment Not on file documented as of this encounter Visit Diagnoses Diagnosis Ovary cancer, right Ovary cancer, left documented in this encounter Administered Medications Inactive Administered Medications - up to 3 most recent administrations Medication Order MAR Action Action Date Dose Rate Site aprepitant (CINVANTI) injection Emul 130 mg 130 mg, Intravenous, Administer over 2 Minutes, ONCE, 1 dose, On Ange 03/11/21 at 1030, Alternative administration of IV push over 2 minutes is a recommendation from the bottle house quality control technician. Administer prior to chemotherapy., Routine Given 03/11/2021 10:22 AM EST 130 mg CARBOplatin (Paraplatin) 547 mg in dextrose 5% 304.7 mL infusion 547 mg (rounded from 546.5 mg, Target AUC = 5), Intravenous, ONCE, 1 dose, On Ange 03/11/21 at 1130, Administer over 30 Minutes, Warning Vesicant/Irritant Medication New Bag 03/11/2021 5:53 PM EST 547 mg 609.4 mL/hr dexamethasone (PF) (Decadron) (10 mg/mL) injection 10 mg 10 mg, Intravenous, ONCE, 1 dose, On Ange 03/11/21 at 1030, Administer 30 minutes prior to PACLitaxel Given 03/11/2021 10:21 AM EST 10 mg diphenhydrAMINE (Benadryl) capsule 50 mg 50 mg, Oral, ONCE, 1 dose, On Ange 03/11/21 at 1030, Administer 30 minutes prior to PACLitaxel, Routine Given 03/11/2021 10:19 AM EST 50 mg famotidine (Pepcid) (10 mg/mL) injection 20 mg 20 mg, Intravenous, ONCE, 1 dose, On Ange 03/11/21 at 1030, Administer 30 minutes prior to PACLitaxel Given 03/11/2021 10:21 AM EST 20 mg PACLitaxeL (Taxol) 320 mg in sodium chloride 0.9% Non-PVC 553.3333 mL infusion 320 mg (rounded from 320.25 mg = 175 mg/m2/dose ? 1.83 m2 Treatment Plan BSA from Recorded weight), Intravenous, ONCE, 1 dose, On Ange 03/11/21 at 1130, Administer over 5 Hours, Warning Vesicant/Irritant Medication Initiate paclitaxel at half rate for 30 min, then increase to full rate d/t previous reaction Rate/Dose Change 03/11/2021 4:00 PM EST 110.7 mL/hr New Bag 03/11/2021 11:18 AM EST 320 mg 45 mL/hr palonosetron (Aloxi) (0.05 mg/mL) injection 0.25 mg 0.25 mg, Intravenous, ONCE, 1 dose, On Ange 03/11/21 at 1030, Administer over 30 seconds., Routine Given 03/11/2021 10:22 AM EST 0.25 mg pegfilgrastim (Neulasta Onpro) (6 mg/0.6 mL) injection kit 6 mg 6 mg, Subcutaneous, ONCE, 1 dose, On Ange 03/11/21 at 1030, Allow the prefilled syringe co-packaged with the on-body injector to reach room temperature at least 30 minutes prior to administration., Routine, This agent is restricted to outpatient use. Is this drug being given as an outpatient? Yes Given 03/11/2021 5:44 PM EST 6 mg sodium chloride 0.9% infusion 75 mL/hr, Intravenous, CONTINUOUS, Starting on Ange 03/11/21 at 1030, Until Mon03/12/21 at 0434 New Bag 03/11/2021 10:22 AM EST 75 mL/hr 75 mL/hr documented in this encounter Care Teams Remediation Consultant Relationship Specialty Start Date End Date Sue Espinosa PA [address] [place] [id number] PCP - General Family Medicine 11/09/20 02/14/22 documented as of this encounter
--- OUTSIDE RECORDS SUMMARY | 2024-01-02 18:40 | XMS_ITS | Encounter Summary ---
Author Organization [facility] [place] [address] Care Team Providers Care Biogeographer Name Role Phone Sue Espinosa Primary Care Provider [phone] Encounter Details Date Type Department Care Team (Late st Contact Info) Description 03/11/2021 Orders Only [place] [address] Aletha Francois MD [facility] DR OBSTETRICS [place] [address] Social History Tobacco Use Types Packs/Day Years [...] on filedocumented in this encounter Care Teams Biogeographer Relationship Specialty Start Date End Date Sue Espinosa PA [address] [place] [id number] PCP - General Family Medicine 11/09/20 02/14/22 documented as of this encounter
--- OUTSIDE RECORDS SUMMARY | 2024-01-02 18:40 | XMS_ITS | Encounter Summary ---
[place] [address] Care Team Providers Care Online Facilitator Name Role Phone Sue Espinosa Primary Care Provider [phone] Reason for Visit * Reason Onset Date Comments Prior Authorization 01/19/2021 Neulasta ONP RO Prefill Syr Kit - Approved 10/20/2020 - 01/18/2022 Encounter Details Date Type Department Care Team (Late st Contact Info) Description 01/19/2021 Telephone Gynecology [place] [address] Chrissie Ramírez RN Prior Authorization (Neulasta ONPRO Prefill Syr Kit - Approved 10/20/2020 - 01/18/2022) Social History Tobacco Use Types Packs/Day Years [...] encounter Miscellaneous Notes * Telephone Encounter - Chrissie Ramírez RN - 01/19/2021 8:42 AM EST Response to Prior Auth Request received by fax from [employer] pegfilgrastim (Neulasta Onpro) 6 mg/0.6 ml injection kit Neulasta ONPRO Prefill Syr Kit - APPROVED Effective Dates: 10/20/2020 - 01/18/2022 documented in this encounter Plan of Treatment Not on file documented as of this encounter Visit Diagnoses Not on filedocumented in this encounter Care Teams Online Facilitator Relationship Specialty Start Date End Date Sue Espinosa PA [address] [place] [id number] PCP - General Family Medicine 11/09/20 02/14/22 documented as of this encounter
--- OUTSIDE RECORDS SUMMARY | 2024-01-02 18:40 | XMS_ITS | Encounter Summary ---
Author Organization [facility] [place] [address] Care Team Providers Care Cooperage Shop Supervisor Name Role Phone Sue Espinosa Primary Care Provider [phone] Encounter Details Date Type Department Care Team (Late st Contact Info) Description 03/31/2021 Telephone Gynecology Oncology at [facility] [place] [address] Teri Torre, RN Social History Tobacco Use Types Packs/Day Years [...] Miscellaneous Notes * Telephone Encounter - Teri Torre, RN - 03/31/2021 4:26 PM EST Called patient and reviewed her labs with her. Informed her that her Na is a little low at 133 and K is at 3.3. Patient states she is feeling great, but she's had difficulty taking the potassium as it would frequently get stuck in her throat/make her gag and vomit. Informed patient we would try to get a different prescription for potassium that she could take easier. Called patient's pharmacy on file. They do not have smaller potassium pills, but they do have potassium powder for the patient to dissolve in a beverage/drink. Called and informed patient that this may be an option in the future. Advised patient to not break or dissolve her last potassium tablet per instructions of pharmacist. Patient verbalized understanding. She denies any further questions or concerns at this time. * Telephone Encounter - Teri Torre RN - 03/31/2021 3:07 PM EST Called [facility] and requested recent labwork get faxed to us at [phone]. documented in this encounter Plan of Treatment Not on file documented as of this encounter Visit Diagnoses Not on filedocumented in this encounter Care Teams Cooperage Shop Supervisor Relationship Specialty Start Date End Date Sue Espinosa PA [address] [place] [phone] PCP - General Family Medicine 11/09/20 02/14/22 documented as of this encounter
--- OUTSIDE RECORDS SUMMARY | 2024-01-02 18:40 | XMS_ITS | Encounter Summary ---
Author Organization [facility] [place] [address] Care Team Providers Care Sales Merchandiser Name Role Phone Sue Espinosa Primary Care Provider [phone] Encounter Details Date Type Department Care Team (Late st Contact Info) Description 03/11/2021 Orders Only [place] [address] Aletha Francois MD [facility] DR OBSTETRICS [place] [address] Social History Tobacco Use Types Packs/Day Years [...] on filedocumented in this encounter Care Teams Sales Merchandiser Relationship Specialty Start Date End Date Sue Espinosa PA [address] [place] [id number] PCP - General Family Medicine 11/09/20 02/14/22 documented as of this encounter
--- OUTSIDE RECORDS SUMMARY | 2024-01-02 18:40 | XMS_ITS | Encounter Summary ---
Author Organization [facility] [place] [address] Care Team Providers Care Manager Sas Name Role Phone Deedee Cruz MD Primary Care Provider [phone] Encounter Details Date Type Department Care Team (Late st Contact Info) Description 02/15/2022 Telephone Gynecology Oncology at [facility] [place] [address] Shannon Hebert, YVES Social History Tobacco Use Types Packs/Day Years [...] Telephone Encounter - Teri Torre RN - 02/17/2022 3:39 PM EST Received a call back from YVES Vines with Dr. Cruz's office. She is returning a call to Shannon. Dr. Cruz is okay with the patient having her port removed. Informed Jasmyn that the port removal appointment has been scheduled and patient is aware. Discussed with Jasmyn that Dr. Francois wants the patient to have a CA 125 in 4 months, but we want to make sure we are not ordering duplicate labs. Jasmyn states Dr. Cruz will want Dr. Francois to order the CA 125 lab work if she is ordering the port removal. If Dr. Cruz wants any additional labs, he will needto order them. She will let Dr. Cruz know that we are ordering the CA 125. * Telephone Encounter - Shannon Hebert RN - 02/15/2022 3:12 PM EST Nurse attempted to call PCP on file, no answer. Left message on voicemail for a call back. Phone call regarding MediPort removal. * Telephone Encounter - Shannon Hebert RN - 02/15/2022 3:11 PM EST ----- Message from Aletha Francois MD sent at 02/15/2022 10:44 AM EST ----- Patient wants her port out please. Can you schedule in 2022? Ca 125 in 4 months please, but coordinate with her primary care provider who is an Oncologist and seems to order duplicates of some of ourlabs. TY documented in this encounter Plan of Treatment Not on file documented as of this encounter Visit Diagnoses Not on filedocumented in this encounter Care Teams Manager Sas Relationship Specialty Start Date End Date Deedee Cruz MD [address] [place] [address] PCP - General Oncology 02/15/22 documented as of this encounter
--- OUTSIDE RECORDS SUMMARY | 2024-01-02 18:40 | XMS_ITS | Encounter Summary ---
Author Organization [facility] Address [facility] [place] [address] Care Team Providers Care Health Systems Analyst Name Role Phone Sue Espinosa Primary Care Provider [phone] Encounter Details Date Type Department Care Team (Late st Contact Info) Description 02/08/2021 Notes Only [place]ematology [place] [address] Timoteo [place] MD [facility] DR HEMATOLOGY/[place] [address] Social History Tobacco Use Types Packs/Day Years Used Date Smoking Tobacco: Never Smokeless Tobacco: Never Alcohol Use Standard Drinks/Week Comments Never 0 (1 standard drink = 0.6 oz pur e alcohol) Sex and Gender Information Value Date Recorded Sex Assigned at Not on file Gender Identity Not on file Sexual Orientation Not on file documented as of this encounter Progress Notes * Timoteo Dillon MD - 02/08/2021 10:48 AM EST I have reviewed the patient's record and given personal and/or family history of cancer she should be seen by genetic counselor. This is scheduled for this week. documented in this encounter Plan of Treatment Not on file documented as of this encounter Visit Diagnoses Not on filedocumented in this encounter Care Teams Health Systems Analyst Relationship Specialty Start Date End Date Sue Espinosa PA [address] [place] [id number] PCP - General Family Medicine 11/09/20 02/14/22 documented as of this encounter
--- OUTSIDE RECORDS SUMMARY | 2024-01-02 18:40 | XMS_ITS | Encounter Summary ---
Author Organization [facility] [place] [address] Care Team Providers Care Propagation Worker Name Role Phone Sue Espinosa Primary Care Provider [phone] Reason for Referral * Diagnostic Test (Routine) - Closed Specialty Diagnoses / Procedures Referred By Casiac t Referred To Contact Radiology Diagnoses Ovary cancer, right Procedures CT Abdomen & Pelvis w Contrast Aletha Francois MD [facility] OBSTETR[place] [address] [facility] [place] [address] Referral ID Status Reason Start Date Expiration Date V isits Requested Visits Authorized [id number] Closed Specialty Service Requested 04/02/2021 09/30/2022 1 1 Reason for Visit * Diagnostic Test (Routine) - Closed Specialty Diagnoses / Procedures Referred By Contac t Referred To Contact Radiology Diagnoses Ovary cancer, right Procedures CT Abdomen & Pelvis w Contrast Aletha Francois MD [facility] [place] [address] [facility] [place] [address] Referral ID Status Reason Start Date Expiration Date V isits Requested Visits Authorized [id number] Closed Specialty Service Requested 04/02/2021 09/30/2022 1 1 Encounter Details Date Type Department Care Team (Latest Contact Info) Description 04/26/2021 1:26 PM EST - 04/26/2021 11:59 PM EST Hospital Encounter CT Scan at [facility] [place] [address] Aletha Francois MD [facility] OBSTETRICS [place] [address] Ovary cancer, right Discharge Disposition: Home Social History Tobacco Use [...] BY MOUTH FOUR TIMES A DAY 11/03/2020 OLANZapine (ZyPREXA) 5 mg TabletIndications:Caroline motherapy induced nausea and vomiting Take 1 tablet by mouth nightly. Take 1 tablet by mouth nightly starting 04/02/21, taking last dose on 04/08/21. 7 tablet 04/01/2021 10/18/2021 diphenhydrAMINE/alumi num-magnesium hydroxide with simethicone/lidocaine (BMX) (6.67 mg-0.83 mg-13.33 mg-1.33 mg/mL) oral liquidIndications:Thr ush of mouth and esophagus Swish, gargle, and spit 5 mL, every six hours as needed. Shake well before using. 400 mL 03/17/2021 10/18/2021 nystatin (Mycostatin) 100,000 unit/mL SuspensionIndications :Thrush of mouth and esophagus Swish, gargle, and spit 5 mL of final mixture every 6 hours as needed. Shake well before using. 100 mL 03/17/2021 10/18/2021 LORazepam (Ativan) 0.5 mg TabletIndications:Caroline motherapy induced nausea and vomiting Take 1 tablet by mouth every 6 hours as needed (breakthrough nausea or vomiting.). 10 tablet 03/16/2021 10/18/2021 pyridoxine, vitamin B6, (B-6) 100 mg Tablet [...] continuously throughout your chemotherapy treatment with Paclitaxel. Rjnhl-Lwmrap-Hvgy (ALA): Take 600 mg by mouth daily. [...] after chemo.). 20 tablet 5 12/07/2020 10/18/2021 diphenhydrAMINE (Benadryl) 50 mg Capsule Take 50 [...] as of this encounter Progress Notes * Aletha Francois MD - 04/26/2021 4:41 PM EST Great news on CT scan. All normal. documented in this encounter Plan of Treatment Not on file documented as of this encounter Procedures Procedure Name Priority Date/Time Associated Diagnosis Comments CT ABDOMEN AND PELVIS W CONTRAST Routine 04/26/2021 3:41 PM EST Ovary cancer, right documented in this encounter Results * CT Abdomen & Pelvis w Contrast (04/26/2021 3:41 PM EST) Anatomical Region Laterality Modality Abdomen, Pelvis Computed Tomogra phy 04/26/2021 4:00 PM EST Impressions 04/26/2021 4:06 PM EST No metastatic disease in the abdomen or pelvis. Postsurgical changes have resolved. Thank you for letting us participate in the care of this patient. ??If you are a health care provider and have any questions regarding this report, please contact the number below. ??For patients who have questions please contact the health client care coordinator that requested your imaging first. ? Narrative 04/26/2021 4:06 PM EST EXAMINATION: CT ABDOMEN AND PELVIS W CONTRAST CLINICAL HISTORY: Ovarian cancer, assess treatment response 65 y.o. with ovarian cancer. S/p chemotherapy. Assess treatment response TECHNIQUE: Helical CT of the abdomen and pelvis was performed following the intravenous administration of contrast. Administered 74.0 ml of OMNIPAQUE 350.00 mg/ml. Oral contrast was administered. COMPARISON: November 23, 2020 FINDINGS: Lower chest: Normal. Liver: Normal size and attenuation without lesions. Bile ducts: Nondilated. Gallbladder: No calcified gallstones. Normal caliber wall. Pancreas: Normal attenuation without ductal dilatation. Spleen: Normal. Adrenals: Normal. Kidneys: Normal. Urinary Bladder: Normal. Vasculature: Patent portal veins. Smooth-walled normal caliber [...] peritoneal nodularity. Abdominal wall: Healed midline incision Reproductive organs: Uterus is absent Osseous structures: No suspicious lesions. Procedure Note Nivia Field MD - 04/26/2021 EXAMINATION: CT ABDOMEN AND PELVIS W CONTRAST CLINICAL HISTORY: Ovarian cancer, assess treatment response 65 y.o. with ovarian cancer. S/p chemotherapy. Assess treatment response TECHNIQUE: Helical CT of the abdomen and pelvis was performed followingthe intravenous administration of contrast. Administered 74.0 ml of TSLRYRQIJ515.00 mg/ml. Oral contrast was administered. COMPARISON: November 23, 2020 FINDINGS: Lower chest: Normal. Liver: Normal size and attenuation without lesions. Bile ducts: Nondilated. Gallbladder: No calcified gallstones. Normal caliber wall. Pancreas: Normal attenuation without ductal dilatation. Spleen: Normal. Adrenals: Normal. Kidneys: Normal. Urinary Bladder: Normal. Vasculature: Patent portal veins. Smooth-walled normal caliber aorta. Lymph Nodes: No pathologically enlarged inguinal, deep pelvic,retroperitoneal nor mesenteric lymph nodes. Bowel: Normal caliber loops of small and large bowel without muralthickening. Previously noted small bowel loops have decompressed. Peritoneum and mesentery: Postsurgical changes, right pelvic sidewallhematoma and perihepatic collection have resolved. No free air. No loculatedfluid collection. No ascites. No omental caking. No peritoneal nodularity. Abdominal wall: Healed midline incision Reproductive organs: Uterus is absent Osseous structures: No suspicious lesions. IMPRESSION No metastatic disease in the abdomen or pelvis. Postsurgical changes have resolved. Thank you for letting us participate in the care of this patient. If youare a health care provider and have any questions regarding this report,please contact the number below. For patients who have questions please contactthe health client care coordinator that requested your imaging first. Aletha Francois MD IMG CT ORDERABLES documented in this encounter Visit Diagnoses Diagnosis Ovary cancer, right documented in this encounter Administered Medications Inactive Administered Medications - up to 3 most recent administrations Medication Order MAR Action Action Date Dose Rate Site iohexoL (Omnipaque) (350 mg/mL) solution 0-200 mL 0-200 mL, Intravenous, ONCE PRN, 1 dose, Starting on Mon04/26/21 at 1536, Until Mon04/26/21 at 1542, Per Protocol, Warning Vesicant/Irritant Medication , Radiology Contrast, Routine Given 04/26/2021 3:42 PM EST 74 mLs iohexoL (Omnipaque) (350 mg/mL) solution 0-50 mL 0-50 mL, Oral, ONCE PRN, 1 dose, Starting on Mon04/26/21 at 1536, Until Mon04/26/21 at 1537, Per Protocol, Warning Vesicant/Irritant Medication , Radiology Contrast, Routine Given 04/26/2021 3:37 PM EST 50 mLs documented in this encounter Care Teams Propagation Worker Relationship Specialty Start Date End Date Sue Espinosa PA [address] [place] [id number] PCP - General Family Medicine 11/09/20 02/14/22 documented as of this encounter
--- OUTSIDE RECORDS SUMMARY | 2024-01-02 18:40 | XMS_ITS | Encounter Summary ---
Author Organization [facility] Address [facility] [place] [address] Care Team Providers Care Oil Fire Specialist Name Role Phone Sue Espinosa Primary Care Provider [phone] Reason for Visit * Reason Comments Chemotherapy Encounter Details Date Type Department Care Team (Late st Contact Info) Description 03/11/2021 8:40 AM EST Office Visit [place] [address] Aletha Francois MD [facility] DR OBSTETRICS [place] [address] Left ovarian epithelial cancer; Hypersensitivity reaction, sequela; S/P ECTOR-BSO (total abdominal hysterectomy and bilateral salpingo-oophorectomy ); Chemotherapy follow-up examination; Chemotherapy induced neutropenia; Chemotherapy-induced peripheral neuropathy; Other chronic pain Social History Tobacco Use Types Packs/Day Years [...] Sign Reading Time Taken Comments Blood Pressure 142/77 03/11/2021 8:21 AM EST Pulse 122 03/11/2021 8:21 AM EST Temperature 36.5 ??C (97.7 ??F) 03/11/2021 8:21 AM ES T Respiratory Rate 16 03/11/2021 8:21 AM EST Oxygen Saturation 97% 03/11/2021 8:21 AM EST Inhaled Oxygen Concentration - - Weight 68.5 kg (151 lb 0.2 oz) 03/11/2021 8:21 A M EST Height 165.1 cm (5' 5) 03/11/2021 8:21 AM EST Body Mass Index 25.13 03/11/2021 8:21 AM EST documented in this encounter Progress Notes * Aletha Francois MD - 03/11/2021 8:40 AM EST Images from the original note were not included. GYNECOLOGIC ONCOLOGY OUT PATIENT FOLLOW UP Date: 03/11/2021 Name: Dalia Mcfarlane : 1955 CSN: [id number] Patient Care Team: Patient Care Team: Sue Espinosa PA as PCP - General (Family Medicine) CHIEF COMPLAINT Left ovarian cancer Chemotherapy follow up, cycle #5 scheduled for today HISTORY OF PRESENT ILLNESS Dalia Mcfarlane is a 65 y.o. 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 Patient endorses acute onset abdominal pain and presented to ED [facility] 11/06/20 associated with some nausea. Patient reports prior episode 10 years earlier and diagnosis with UTI and treated with antibiotic. Surgery 11/19/20 optimal debulking total abdominal hysterectomy bilateral salpingo-oophorectomy omentectomy Here with today. Last visit: 01/28/21 Interval history Decadron premeds for chemotherapy due to taxol reaction with 1st cycle Onpro for neutropenia 1. Thrush mouth resolved after using mouthwash that worked very well, 2. Nausea using compazine, but mild nausea this cycle 3. Bowel movement regular Neuropathy fingers hand and feet using B6, unable tolerate glutamine now more regularly and patientreports she trips over feet, needs help getting things out of her wallet . Doing laundry, still knitting and moving well at home 4. Pain meds Sue AVALOS has helped adjust using amitriptyline and neurontin twice daily for her overall body aches. Patient off norco. 5. Patient remains on onpro no issues 6. Patient saw Genetics for consultation sent in swab test results pending Patient reports she is feeling better and doing more at home but sleep still an issue, falling asleep and the Wakes and stays up. Great appetite and energy level better. mediport in place COVID vaccinated. Performance Status: 0 Oncology History [...] today with the patient. CA 125 = 10 03/09/21 CA 125 = 13 02/15/21 [facility] [place] Left ovary (partial oophorectomy): ? Ovarian [...] benign lymph node. Negative cytology TVS 11/06/[address] [facility] N [address] ABD/PELVIS [facility] ED 11/06/20 Labs Creatinine 1.0 Normal LFT Total protein 7.9. 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 CURRENT MEDICATIONS Current Outpatient Medications Medication Sig Dispense Refill No current facility-administered medications for this visit. PHYSICAL EXAM BP 142/77 Pulse (!) 122 Temp 36.5 ??C (97.7 ??F) (Temporal) Resp 16 Ht 165.1 cm (5' 5) Wt 68.5 kg (151 lb 0.2 oz) SpO2 97% BMI 25.13 kg/m?? Exam: GENERAL: Well-appearing, female in no [...] follow up Taxol reaction Chemotherapy associated neuropathy Plan extend taxol infusion today and with next cycle to a total of 5 hours to mitigate neuropathy -d/w patient possible impact on neutropenia Patient is tolerating chemotherapy well and her energy and activities are increasing. Patient had taxol reaction which was managed with slowed infusion rate. We have pre-medicated with prednisone, which patient has tolerated well for past 3 cycles. Plan to continue onpro for patient this cycle due to her neutropenia in prior cycle. Patient did not have fevers associated with neutropenia, but due to [...] done, await results Pain I discussed with her PCP Sue Buckner and plans to have all subsequent pain medication includingAtivan coordinated through her PCP. Patient has discontinued her opioids under the guidance of her PCP with good effect.. I have shared this information with my colleagues and team members who understand they will not prescribe any further narcotic prescriptions or Ativan for Dalia. I personally spent a total of 20 minute visit in counseling and coordinating care for Dalia Mcfarlane. We discussed the plan and rationale for ongoing surveillance. Signed, Aletha Francois MD 03/11/2021 documented in this encounter Plan of Treatment Not on file documented as of this encounter Visit Diagnoses Diagnosis Left ovarian epithelial cancer Hypersensitivity reaction, sequela S/P ECTOR-BSO (total abdominal hysterectomy and bilateral salpingo-oophorectomy) Acquired absence of both cervix and uterus Chemotherapy follow-up examination Chemotherapy induced neutropenia Drug induced neutropenia Chemotherapy-induced peripheral neuropathy Other chronic pain documented in this encounter Care Teams Oil Fire Specialist Relationship Specialty Start Date End Date Sue Espinosa PA [address] [place] [id number] PCP - General Family Medicine 11/09/20 02/14/22 documented as of this encounter
--- OUTSIDE RECORDS SUMMARY | 2024-01-02 18:40 | XMS_ITS | Encounter Summary ---
Author Organization [facility] [place] [address] Care Team Providers Care Grand Scribe Name Role Phone Deedee Cruz MD Primary Care Provider [phone] Encounter Details Date Type Department Care Team (Late st Contact Info) Description 05/04/2022 Telephone Gynecology [place] [address] Debra Dotson Social History Tobacco Use Types [...] on filedocumented in this encounter Care Teams Grand Scribe Relationship Specialty Start Date End Date Deedee Cruz MD [address] [place] [address] PCP - General Oncology 02/15/22 documented as of this encounter
--- OUTSIDE RECORDS SUMMARY | 2024-01-02 18:40 | XMS_ITS | Encounter Summary ---
Author [facility] [place] [address] Care Team Providers Care Pull Over Name Role Phone Deedee Cruz MD Primary Care Provider [phone] Encounter Details Date Type Department Care Team (Latest Contact Info) Description 06/05/2022 Travel Social History Tobacco Use Types Packs/Day [...] on filedocumented in this encounter Care Teams Pull Over Relationship Specialty Start Date End Date Deedee Cruz MD [address] [place] [address] PCP - General Oncology 02/15/22 documented as of this encounter
--- OUTSIDE RECORDS SUMMARY | 2024-01-02 18:40 | XMS_ITS | Encounter Summary ---
Author Organization [facility] [place] [address] Care Team Providers Care Academic Success Coordinator Name Role Phone Sue Espinosa Primary Care Provider [phone] Encounter Details Date Type Department Care Team (Late st Contact Info) Description 03/22/2021 Telephone Gynecology Oncology at [facility] [place] [address] Shannon Hebert RN Social History Tobacco Use Types Packs/Day [...] encounter Miscellaneous Notes * Telephone Encounter - Shannon Hebert RN - 03/22/2021 2:40 PM EST Called patient and informed her that prescription was called in by to [facility] in [place]. Patient verbalized understanding and has no further questions at this time. * Telephone Encounter - Shannon Hebert RN - 03/22/2021 11:44 AM EST Called patient to inform her that external lab called our office with a low potassium level. Assessment: Patient no longer c/o nausea at this time. She states that she is feeling better and is now eating. States that today is a good day, but always feels tired. Patient denies muscle cramps, confusion, constipation, irregular or skipped heart beat, increased urination. States that her fingers and toes are numb but this has been an ongoing issue. Plan: Nurse advised patient that replacement needs to be done orally since she is no longer nauseous. Patient would like medication to be called into [facility] in [place], [place]. In addition, nurse advised patient to eat bananas as they are a good source of potassium. Labs need to be re-checked in a few days. Patient will call infusion to schedule appointment for Monday for a re-check of Potassium. Lastly,nurse advised patient that if she starts feeling worse or has any s/s of Hypokalemia to give our office a call immediately. Patient verbalized understanding and has no further questions or concerns at this time. * Telephone Encounter - Shannon Hebert RN - 03/22/2021 11:17 AM EST CRITICAL/STAT RESULT NOTIFICATION TELEPHONE NOTE Date of call: 03/22/2021 Time of call: 11:30 AM Two patient identifiers: [x] Caller: External - [facility] Reason for call: Critical results, calling for Lab results Test and results: Potassium = 2.7 Read back: [x] Name of Provider Notified: Provider acknowledgement: [x] Time of Notification: 11:20am Mode of Notification: Phone call Plan of care: Nurse advised patient that potassium is low and that replacement needs to be done orally. In addition, nurse advised patient to eat bananas as they are a good source of potassium. Then re-check lab in a couple of days. Patient verbalized understanding with no further questions or concerns at this time. documented in this encounter Plan of Treatment Not on file documented as of this encounter Visit Diagnoses Not on filedocumented in this encounter Care Teams Academic Success Coordinator Relationship Specialty Start Date End Date Sue Espinosa PA [address] [place] [id number] PCP - General Family Medicine 11/09/20 02/14/22 documented as of this encounter
--- OUTSIDE RECORDS SUMMARY | 2024-01-02 18:40 | XMS_ITS | Encounter Summary ---
Author Organization [facility] Address [facility] [place] [address] Care Team Providers Care Tripe Finisher Name Role Phone Sue Espinosa Primary Care Provider [phone] Reason for Visit * Reason Comments Established F/u Encounter Details Date Type Department Care Team (Late st Contact Info) Description 05/13/2021 9:40 AM EST Office Visit [place] [address] Aletha Francois MD [facility] DR OBSTETRICS [place] [address] Thrush of mouth and esophagus; Chemotherapy-induced peripheral neuropathy; Hypersensitivity reaction, initial encounter; Educational circumstance; S/P ECTOR-BSO (total abdominal hysterectomy and bilateral salpingo-oophorectomy ); Left ovarian epithelial cancer Social History Tobacco Use Types Packs/Day Years [...] Sign Reading Time Taken Comments Blood Pressure 135/79 05/13/2021 9:16 AM EST Pulse 131 05/13/2021 9:16 AM EST Temperature 37 ??C (98.6 ??F) 05/13/2021 9:16 AM EST Respiratory Rate 20 05/13/2021 9:16 AM EST Oxygen Saturation 98% 05/13/2021 9:16 AM EST Inhaled Oxygen Concentration - - Weight 68 kg (150 lb) 05/13/2021 9:16 AM EST Height 165.1 cm (5' 5) 05/13/2021 9:16 AM EST Body Mass Index 24.96 05/13/2021 9:16 AM EST documented in this encounter Progress Notes * Aletha Francois MD - 05/13/2021 9:40 AM EST Images from the original note were not included. GYNECOLOGIC ONCOLOGY OUT PATIENT FOLLOW UP Date: 05/12/2021 Name: Dalia Mcfarlane : 1955 CSN: [id number] Patient Care Team: Patient Care Team: Sue Espinosa PA as PCP - General (Family Medicine) CHIEF COMPLAINT Left ovarian cancer Chemotherapy follow up, cycle #6 scheduled for today HISTORY OF PRESENT ILLNESS Dalia Mcfarlane is a 65 y.o. 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 Patient endorses acute onset abdominal pain and presented to ED [facility] 11/06/20 associated with some nausea. Patient reports prior episode 10 years earlier and diagnosis with UTI and treated with antibiotic. Surgery 11/19/20 optimal debulking total abdominal hysterectomy bilateral salpingo-oophorectomy omentectomy Here with today. Last visit: 04/03 Interval history Decadron premeds for chemotherapy due to taxol reaction with 1st cycle Patient required Onpro for neutropenia Last cycle 04/03 1. Thrush mouth resolved after using mouthwash less this past cycle and now resolved 2. Nausea much worse last 2 cycles - started about day 5 and more severe than in past cycles. Patient successfully used antiemetics form cycle 5 to keep nausea under control. Not resolved. 3. Bowel movement regular 4. Neuropathy fingers hand and feet using B6, unable tolerate glutamine now more regularly and patient reports she trips over feet. Patient using walker now rather than wheelchair. Tips fingers for example needs help getting things out of her wallet, she is still able to do laundry, still knitting and moving well at home. 5. Pain meds Sue AVALOS has helped adjust using amitriptyline and neurontin 600 mg four times daily for her overall body aches. Patient off norco. Patient feels her body aches are worse and she is anxious to develop better medication plan. Patient still describes body aches. Patient able to do errands and get out of house. mediport in place and working well. Patient plans to get it flushed closer to home in [facility].May 26, 2021 scheduled to have it [...] of my consultation today with the patient. [facility] [place] Vasculature: Patent portal veins. Smooth-walled [...] abdomen or pelvis. Postsurgical changes have resolved. ?? CA 125 = 18 04/26/21 CA 125= 14 03/30/21 CA 125 = 10 03/09/21 CA 125 = 13 02/15/21 [facility] [place] Left ovary (partial oophorectomy): ? Ovarian [...] benign lymph node. Negative cytology TVS 11/06/20 [facility] N CT ABD/PELVIS [facility] ED 11/06/20 Labs Creatinine 1.0 Normal LFT Total protein 7.9. 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 CURRENT MEDICATIONS Current Outpatient Medications Medication Instructions ??? acetaminophen (TYLENOL) 650 mg, Oral, EVERY 6 HOURS ??? amitriptyline (Elavil) 10 mg Tablet No dose, route, or frequency recorded. ??? dexamethasone (Decadron) 4 mg Tablet Take 20 mg (5 tablets) 12- and 6-hours prior to chemotherapy. ??? dimenhyDRINATE (DRAMAMINE) 50 mg, Oral, PRN, Pt does take for long car rides maybe 2x per year ??? diphenhydrAMINE (BENADRYL) 50 mg, Oral, PRN, Take 50 mg as needed for motion sickness ??? diphenhydrAMINE/aluminum-magnesium hydroxide with simethicone/lidocaine (BMX) (6.67 mg-0.83 mg-13.33 mg-1.33 mg/mL) oral liquid Swish, gargle, and spit 5 mL, every six hours as needed. Shake wellbefore using. ??? gabapentin (NEURONTIN) 600 mg Tablet TAKE ONE TABLET BY MOUTH FOUR TIMES A DAY ??? lidocaine-prilocaine (EMLA) Cream Place on skin over port site ~ 1-hour prior to access for labs or chemo. ??? lisinopriL (Zestril) 5 mg Tablet No dose, route, or frequency recorded. ??? LORazepam (ATIVAN) 0.5 mg, Oral, EVERY 6 HOURS PRN ??? nystatin (Mycostatin) 100,000 unit/mL Suspension Swish, gargle, and spit 5 mL of final mixture every 6 hours as needed. Shake well before using. ??? OLANZapine (ZYPREXA) 5 mg, Oral, NIGHTLY, Take 1 tablet by mouth nightly starting 04/02/21, taking last dose on 04/08/21. ??? polyethylene glycoL (MIRALAX) 17 g, Oral, DAILY PRN ??? pyridoxine (vitamin B6) (B-6) 100 mg, Oral, PRN ??? senna-docusate (Pericolace) 8.6-50 mg Tablet 1 tablet, Oral, 2 TIMES DAILY PRN, Please take this if you are using oxycodone PHYSICAL EXAM BP 135/79 (Patient Position: Sitting) Pulse (!) 131 Temp 37 ??C (98.6 ??F) (Temporal) Resp 20 Ht 165.1 cm (5' 5) Wt 68 kg (150 lb) SpO2 98% BMI 24.96 kg/m?? Exam GENERAL: Well-appearing, female in no acute distress. HENT: Moist mucous membranes. No adenopathy. NECK: NO masses of thyroid or assymetry. ABD: soft no distention Genetic Testing negative Advance Directives Reviewed with patient on 11/13/20 [...] the future. D/w the plan for q 3 months surveillance with CA 125 and pelvic exam. D.w them at length rationale for pelvic exams to monitor. Patient finds pelvic exams very uncomfortable and desired more information as to why we perform them. Port will remain in place for longer period observation and has arranged for flushing locally q 4-6weeks. We discussed no role for additional chemotherapy based upon her stage of disease, histology. Reviewed CBC and chem panel with patient, both normal and no need to repeat with subsequent visit unless change in symptoms. Patient to follow with pcpc. Genetic testing. - Genetics referral done negative. Pain PCP Sue Buckner coordinates pain medication including Ativan which is currently coordinated through her PCP. Patient has discontinued her opioids under the guidance of her PCP with good effect. Patient encouraged to pursue pain team consult locally after chemotherapy to optimize her pain regimen and plan. I personally spent a total of 30 minute visit in counseling and coordinating care for Dalia Mcfarlane. We discussed the plan and rationale for ongoing surveillance. RTC 3 months for follow up visit with CA 125. I personally spent a total of 30 minute visit in counseling and coordinating care for Dalia Mcfarlane. We discussed the plan and rationale for ongoing surveillance. 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
--- OUTSIDE RECORDS SUMMARY | 2024-01-02 18:40 | XMS_ITS | Encounter Summary ---
Author Organization [facility] Address [facility] [place] [address] Care Team Providers Care Filtering Machine Tender Helper Name Role Phone Sue Espinosa Primary Care Provider [phone] Encounter Details Date Type Department Care Team (Late st Contact Info) Description 04/01/2021 Orders Only [place] [address] Aletha Francois MD [facility] DR OBSTETRICS [place] [address] Social History Tobacco Use Types Packs/Day Years [...] on filedocumented in this encounter Care Teams Filtering Machine Tender Helper Relationship Specialty Start Date End Date Sue Espinosa PA [address] [place] [id number] PCP - General Family Medicine 11/09/20 02/14/22 documented as of this encounter
--- OUTSIDE RECORDS SUMMARY | 2024-01-02 18:40 | XMS_ITS | Encounter Summary ---
[place] [address] Care Team Providers Care Resident Care Director Name Role Phone Sue Espinosa Primary Care Provider [phone] Reason for Referral * Diagnostic Test (Routine) - Closed Specialty Diagnoses / Procedures Referred By Ryan turk Referred To Contact Radiology Diagnoses Ovary cancer, right Procedures CT Abdomen & Pelvis w Contrast Aletha Francois MD [facility] [address] OBSTET[place]ICS [place] [address] [facility] [place] [address] Referral ID Status Reason Start Date Expiration Date V isits Requested Visits Authorized [id number] Closed Specialty Service Requested 04/02/2021 09/30/2022 1 1 Encounter Details Date Type Department Care Team (Late st Contact Info) Description 04/02/2021 Orders Only [place] [address] Teri Torre RN Ovary cancer, right Social [...] on file documented as of this encounter Results * CT Abdomen & [...] who have questions please contact the health career development engineer that requested your imaging first. ? Electronically signed by: Nivia Field MD, [facility] ([phone]), at 04/26/2021 4:06 PM Narrative 04/26/2021 4:06 PM EST EXAMINATION: CT [...] administration of contrast. Administered 74.0 ml of XPEPOLSAA355.00 mg/ml. Oral contrast was administered. COMPARISON: November [...] patients who have questions please contactthe health career development engineer that requested your imaging first. Aletha Francois MD IM CT ORDERABLES * Cancer Antigen 125 (04/26/2021 1:22 PM EST) CA 125 18.3 <=38.1 unit/mL [facility] Comment: CA 125 Reference Interval ??Postmenopausal: 6.2 to 31.5 U/mL. ??Premenopausal: 6.9 to 45.9 U/mL. ??Pre and Postmenopausal subjects combined: 6.4 to 38.1 U/mL. Blood 04/26/2021 1:22 PM EST 04/26/2021 1:29 PM EST Narrative Resulting Agency Comment Spec In Lab Aletha Francois MD CHEMISTRY ORDERABLES [facility] [place] [address] * (ABNORMAL) Comprehensive metabolic panel (non-fasting) (04/26/2021 1:22 PM EST) Glucose 106 65 - 199 mg/dL [facility] Comment:Diabetes: >=200 mg/d L plus symptoms Blood Urea Nitrogen 4(L) 8 - 18 mg/dL [facility] Creatinine 0.62(L) 0.70 - 1.20 mg/dL [facility] Sodium 136 135 - 145 mmol/L [facility] Potassium 3.5 3.5 - 5.0 mmol/L [facility] Comment: Please note: ??Patients with WBC >100,000 may have falsely elevated Potassium levels. ??For accurate Potassium quantification in these patients send serum separator tube (gold top) for subsequent determinations. ??Contact the Clinical Chemistry Laboratory if there are any questions. Chloride 99 98 - 107 mmol/L [facility] Carbon Dioxide 25 22 - 31 mmol/L [facility] Anion Gap 12 5 - 15 mmol/L [facility] Calcium 8.8 8.5 - 10.5 mg/dL [facility] Protein, Total 6.3 6.1 - 8.0 g/dL [facility] Albumin 4.0 3.2 - 5.2 g/dL [facility] Aspartate Aminotransferase 15 0 - 30 unit/L [facility] Alanine Aminotransferase 10 0 - 30 unit/L [facility] Alkaline Phosphatase 92 35 - 105 unit/L [facility] Bilirubin, Total 0.3 0.2 - 1.3 mg/dL [facility] Est Glomerular Filtration Rate 95 >=60 mL/min/1. 73 m?? [facility] Comment: This patient? s [...] In Lab Aletha Francois MD CHEMISTRY ORDERABLES [facility] [place] [address] documented in this encounter Visit Diagnoses Diagnosis Ovary cancer, right Ovary cancer, right documented in this encounter Care Teams Resident Care Director Relationship Specialty Start Date End Date Sue Espinosa PA [address] [place] [id number] PCP - General Family Medicine 11/09/20 02/14/22 documented as of this encounter
--- OUTSIDE RECORDS SUMMARY | 2024-01-02 18:40 | XMS_ITS | Encounter Summary ---
Author Organization Pending [facility] To [facility] Address [facility] [place] [address] Care Team Providers Care Therapist Rrt Name Role Phone Sue Espinosa Primary Care Provider [phone] Reason for Visit * Reason Comments Genetic Evaluation * Consultation (Routine) - Closed Specialty Diagnoses / Procedures Referred By Contac t Referred To Contact Hematology and Oncology Diagnoses Ovary cancer, right Left ovarian epithelial cancer Evelyn Hernandez, CAR RECORD CLERK [facility] DR OBSTETRICS [place] [address] [facility] [address] [place] [address] Referral ID Status Reason Start Date Expiration Date V isits Requested Visits Authorized [id number] Closed Consult, Test & Treat 02/01/2021 02/01/2022 1 1 Encounter Details Date Type Department Care Team (Latest Contact Info) Description 02/10/2021 1:30 PM EST TH Visit (TeleHealth) [place]ology [place] [phone] Sailaja Samaniego, [facility] HEMATOLOGY/[place] [address] Ovary cancer, right; Left ovarian epithelial cancer Social History Tobacco [...] as of this encounter Progress Notes * Sailaja Samaniego LGC - 02/10/2021 1:30 PM EST Dalia Mcfarlane was seen by Sailaja Samaniego Edna in consultation at the request of Evelyn callahan regarding possible heritable predisposition to cancer. I spent 27 minutes of this telephone encounter with the patient and her gathering medical and family history and discussing the likelihood of a genetic predisposition to cancer and the optionof genetic testing. Reason for referral/Chief complaint Personal history of ovarian cancer. Medical history Cancer hx and treatment: Left ovary stage 1C clear cell carcinoma. Has been treated with hysterectomy and BSO. Is currently undergoing chemotherapy. Age at 1st menses: 13 Age at 1st child: n/a Menopause status: post menopause Oral contraceptive use: used for ~2 years in her 30's. Current cancer screening: not reviewed Family History of cancer Problem Relation Age of Onset ??? Throat Cancer (smoker) Mother 75 ??? Testicular Cancer Brother 20's Maternal ethnic background is Slovakian. Paternal ethnic background is Hungarian, Cameroonian. No known Ashkenazi Voodoo heritage. Genetic risk assessment Based on personal and/or family history, the likelihood that Dalia would be found to have a mutation in a cancer predisposition gene is high enough to offer the option of genetic testing. Specifically, Dalia meets National Comprehensive Cancer Network (NCCN) criteria for BRCA1 and BRCA2 analysis due to her diagnosis of ovarian cancer. Panel genetic testing for an inherited predisposition to cancer, including ovarian, breast and other cancers was discussed. The risks, benefits and limitations of panel genetic testing were reviewed,specifically a high rate of identifying a variant of uncertain significance, lack of knowledge of cancer risk for newly identified, moderate risk genes included in the panel and lack of effective screening, as well as cancer risk for other cancers not observed in the family. Dalia opted for testing with [employer] Multi-Cancer Panel, a next generation sequencing panel that simultaneously analyzes 84 genes, including BRCA1 and BRCA2, that contribute to increased risk for cancer. Dalia gave verbal consent for testing. I will be mailing the consent forms to Dalia to completeand return to me. [employer] will send a buccal swab collection kit with prepaid return envelope directly to Dalia's home to obtain a sample. Instructions for sample collection and return are providedwithin the kit. Once [facility] receives the sample, testing will take up to 3 weeks. Dalia will be contacted via telephone once her test results become available. If positive, we will offer a follow-up appointment. At that time, we will discuss with Dalia the implications that this test result may have for her, as well as her family members. We will also provide Dalia with screening guidelines for cancer prevention and early detection, as well as answer any questions she may have. documented in this encounter Plan of Treatment Scheduled Referrals Name Type Priority Associated Diagnoses Orde r Schedule Referral to Familial Cancer Outpatient Referral Routine Ovary cancer, right Left ovarian epithelial cancer Ordered: 02/01/2021 documented as of this encounter Visit Diagnoses Diagnosis Ovary cancer, right Left ovarian epithelial cancer documented in this encounter Care Teams Therapist Rrt Relationship Specialty Start Date End Date Sue Espinosa PA [address] [place] [id number] PCP - General Family Medicine 11/09/20 02/14/22 documented as of this encounter
--- OUTSIDE RECORDS SUMMARY | 2024-01-02 18:40 | XMS_ITS | Encounter Summary ---
Author Organization [facility] [place] [address] Care Team Providers Care Machinist Supervisor Name Role Phone Sue Espinosa Primary Care Provider [phone] Reason for Visit * Treatment/Therapy Plan Authorization (Routine) - Closed Specialty Diagnoses / Procedures Referred By Contgenaro t Referred To Contact Hematology and Oncology Diagnoses Ovary cancer, right Ovary cancer, left Aletha Francois MD [facility] [address] [place] [address] [facility] [address] [place] [address] Referral ID Status Reason Start Date Expiration Date Visits Re quested Visits Authorized [id number] Closed 12/07/2020 12/07/2021 99 99 Encounter Details Date Type Department Care Team (Latest Contact Info) Description 02/18/2021 9:57 AM EST - 02/18/2021 11:59 PM EST Hospital Encounter Hematology [place] [phone] Ovary cancer, right; Ovary cancer, left Discharge [...] Sign Reading Time Taken Comments Blood Pressure 143/82 02/18/2021 11:51 AM EST Pulse 121 02/18/2021 11:51 AM EST Temperature 36.5 ??C (97.7 ??F) 02/18/2021 11:[address] Respiratory Rate 16 02/18/2021 11:51 AM EST Oxygen Saturation 93% 02/18/2021 11:51 AM EST Inhaled Oxygen Concentration - - Weight - - Height - - Body Mass Index - - documented in this encounter Medications at Time of Discharge Medication Sig Dispensed Refills Start Date End Date amitriptyline (Elavil) 10 mg Tablet 02/17/2021 lidocaine-prilocaine [...] BY MOUTH FOUR TIMES A DAY 11/03/2020 dexamethasone (Decadron) 4 mg TabletIndications:Hyp ersensitivity reaction, [...] continuously throughout your chemotherapy treatment with Paclitaxel. Fwnif-Nxvxiz-Clqr (ALA): Take 600 mg by mouth daily. [...] as of this encounter Progress Notes * Anni Carson RN - 02/18/2021 12:22 PM EST Patient Name: Dalia Mcfarlane Patient Age: 65 y.o. Birthdate: 1955 Admit date: 02/18/2021 Attending Physician: No att. providers found Dalia Mcfarlane, 65 y.o. female with diagnosis of ovarian cancer is here for chemotherapy infusion of taxol and carboplatin. Onpro device applied - light flashing green prior to discharge. PROTOCOL: n/a CYCLE: 4 DAY: 1 S: Pt. offers no complaints at this time. Reviewed plan of care for infusion visit, patient verbalized understanding of plan as outlined. O: Chemotherapy orders independently verified for correct drug name, route and dosage per patient'sheight, weight and BSA by Anni Carson, RN, RN and onsite pharmacist. Chemotherapy administered per protocol. REACTIONS (DESCRIPTION, TIME, INTERVENTION AND EFFECTIVENESS) none A: Pt. Tolerated treatment with out issue. Dalia Mcfarlane confirms that all questions and issues have been addressed. P: Return to clinic as scheduled. documented in this encounter Plan of Treatment [...] 2 Minutes, ONCE, 1 dose, On Ange 02/18/21 at 1200, Alternative administration of IV push over 2 minutes is a recommendation from the garment supervisor. Administer prior to chemotherapy., Routine Given 02/18/2021 11:59 AM EST 130 mg CARBOplatin (Paraplatin) 453 mg in dextrose 5% 295.3 mL infusion 453 mg (Target AUC = 5), Intravenous, ONCE, 1 dose, On Ange 02/18/21 at 1300, Administer over 30 Minutes, Warning Vesicant/Irritant Medication New Bag 02/18/2021 4:14 PM EST 453 mg 590.6 mL/hr dexamethasone (PF) (Decadron) (10 mg/mL) injection 10 mg 10 mg, Intravenous, ONCE, 1 dose, On Ange 02/18/21 at 1200, Administer 30 minutes prior to PACLitaxel Given 02/18/2021 11:59 AM EST 10 mg diphenhydrAMINE (Benadryl) capsule 50 mg 50 mg, Oral, ONCE, 1 dose, On Ange 02/18/21 at 1200, Administer 30 minutes prior to PACLitaxel, Routine Given 02/18/2021 11:58 AM EST 50 mg famotidine (Pepcid) (10 mg/mL) injection 20 mg 20 mg, Intravenous, ONCE, 1 dose, On Ange 02/18/21 at 1200, Administer 30 minutes prior to PACLitaxel Given 02/18/2021 11:59 AM EST 20 mg PACLitaxeL (Taxol) 320 mg in dextrose 5% Non-PVC 553.3333 mL infusion 320 mg (rounded from 320.25 mg = 175 mg/m2/dose ? 1.83 m2 Treatment Plan BSA from Recorded weight), Intravenous, ONCE, 1 dose, On Ange 02/18/21 at 1300, Administer over 3 Hours, Warning Vesicant/Irritant Medication New Bag 02/18/2021 12:43 PM EST 320 mg 184.4 mL/hr palonosetron (Aloxi) (0.05 mg/mL) injection 0.25 mg 0.25 mg, Intravenous, ONCE, 1 dose, On Ange 02/18/21 at 1200, Administer over 30 seconds., Routine Given 02/18/2021 11:59 AM EST 0.25 mg pegfilgrastim (Neulasta Onpro) (6 mg/0.6 mL) injection kit 6 mg 6 mg, Subcutaneous, ONCE, 1 dose, On Ange 02/18/21 at 1200, Allow the prefilled syringe co-packaged with the on-body injector to reach room temperature at least 30 minutes prior to administration., Routine, This agent is restricted to outpatient use. Is this drug being given as an outpatient? Yes Given 02/18/2021 4:15 PM EST 6 mg sodium chloride 0.9% infusion 75 mL/hr, Intravenous, CONTINUOUS, Starting on Ange 02/18/21 at 1200, Until Mon02/19/21 at 0435 New Bag 02/18/2021 12:11 PM EST 75 mL/hr 75 mL/hr documented in this encounter Care Teams Machinist Supervisor Relationship Specialty Start Date End Date Sue Espinosa PA [address] [place] [phone] PCP - General Family Medicine 11/09/20 02/14/22 documented as of this encounter
--- OUTSIDE RECORDS SUMMARY | 2024-01-02 18:40 | XMS_ITS | Encounter Summary ---
Author Organization [facility] Address [facility] [place] [address] Care Team Providers Care Gamma Operator Name Role Phone Sue Espinosa Primary Care Provider [phone] Reason for Visit * Reason Comments Follow-up 3months Encounter Details Date Type Department Care Team (Late st Contact Info) Description 07/12/2021 9:20 AM EDT Office Visit [place] [address] Aletha Francois MD [facility] DR OBSTETRICS [place] [address] Ovary cancer, right; Chemotherapy-induced peripheral neuropathy; Hypersensitivity reaction, initial encounter; Chemotherapy induced nausea and vomiting; Chemotherapy follow-up examination; Educational circumstance; Other chronic pain Social History Tobacco Use [...] Sign Reading Time Taken Comments Blood Pressure 154/84 07/12/2021 10:12 AM EDT Pulse 130 07/12/2021 10:12 AM EDT Temperature 36.6 ??C (97.9 ??F) 07/12/2021 10:12 AM E DT Respiratory Rate 18 07/12/2021 10:12 AM EDT Oxygen Saturation 100% 07/12/2021 10:12 AM EDT Inhaled Oxygen Concentration - - Weight 70 kg (154 lb 5.2 oz) 07/12/2021 10:12 AM EDT Height - - Body Mass Index 25.68 05/13/2021 9:16 AM EST documented in this encounter Progress Notes * Aletha Francois MD - 07/12/2021 9:20 AM EDT Images from the original note were not included. GYNECOLOGIC ONCOLOGY OUT PATIENT FOLLOW UP Date: 07/12/21 Name: Dalia Mcfarlane : 1955 CSN: [id number] Patient Care Team: Patient Care Team: Sue [...] abdominal pain and presented to ED [facility] 11/06/20 associated with some nausea. Patient reports prior episode 10 years earlier and diagnosis with UTI and treated with antibiotic. Surgery 11/19/20 optimal debulking total abdominal hysterectomy bilateral salpingo-oophorectomy omentectomy Completed chemotherapy 6 cycles 04/01/21 Patient required Onpro for neutropenia Last cycle 04/03 s/p 6 cycles Last visit: 06/01 Interval history: Last saw Sue primary care provider in may. Here with today. Continues with fatigue neuropathy better able to knit Normal bowel movement Nausea typically in AM, resolves with compazine [...] remains off narcotics Plans have family from [facility] come and see family. Plan see then in December. Patient able to do errands and get out of house. mediport in place and working well. Patient plans to get it flushed closer to home in [facility].May 26, 2021 scheduled to have [...] the patient. CA 125 = 13 06/18/21 [facility] 04/26/21 Vasculature: Patent portal veins. Smooth-walled [...] 10 03/09/21 CA 125 = 13 02/15/21 [facility] 11/19/20 Left ovary (partial oophorectomy): ? Ovarian [...] lymph node. Negative cytology TVS 11/06/20 [facility] N CT ABD/[facility] ED 11/06/20 Labs Creatinine 1.0 Normal LFT Total protein 7.9. 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 Exam GENERAL: Well-appearing, female in no [...] any evidence of disease and feeling well We discussed no role for additional chemotherapy [...] to optimize her pain regimen and plan. RTC 3 months for follow up visit with CA 125. I personally spent a total of 30 minute visit in counseling and coordinating care for Dalia Mcfarlane. We discussed the plan and rationale for ongoing surveillance. Signed, Aletha Francois MD 07/12/21 documented in this encounter Plan of Treatment Not on file documented as of this encounter Visit Diagnoses Diagnosis Ovary cancer, right Chemotherapy-induced peripheral neuropathy Hypersensitivity reaction, initial encounter Chemotherapy induced nausea and vomiting Nausea with vomiting Chemotherapy follow-up examination Educational circumstance Other chronic pain documented in this encounter Care Teams Gamma Operator Relationship Specialty Start Date End Date Sue Espinosa PA [address] [place] [id number] PCP - General Family Medicine 11/09/20 02/14/22 documented as of this encounter
--- OUTSIDE RECORDS SUMMARY | 2024-01-02 18:40 | XMS_ITS | Encounter Summary ---
Author Organization [facility] [place] [address] Care Team Providers Care Systems Qa Analyst Name Role Phone Sue Espinosa Primary Care Provider Encounter Details Date Type Department Care Team (Latest Contact Info) Description 02/14/2022 Travel Social History Tobacco Use Types Packs/Day [...] on filedocumented in this encounter Care Teams Systems Qa Analyst Relationship Specialty Start Date End Date Sue Espinosa PA [address] [place] [id number] PCP - General Family Medicine 11/09/20 02/14/22 documented as of this encounter
--- OUTSIDE RECORDS SUMMARY | 2024-01-02 18:40 | XMS_ITS | Encounter Summary ---
Author Organization Formerly [facility] [place] [address] Care Team Providers Care Oil Field Caser Name Role Phone Sue Espinosa Primary Care Provider [phone] Reason for Visit * Treatment/Therapy Plan Authorization (Routine) - Closed Specialty Diagnoses / Procedures Referred By Contgenaro t Referred To Contact Hematology and Oncology Diagnoses Ovary cancer, right Ovary cancer, left Aletha Francois MD [facility] [address] OBST[place] [address] [facility] [address] [place] [address] Referral ID Status Reason Start Date Expiration Date Visits Re quested Visits Authorized [id number] Closed 12/07/2020 12/07/2021 99 99 Encounter Details Date Type Department Care Team (Latest Contact Info) Description 04/01/2021 8:17 AM EST - 04/01/2021 11:59 PM EST Hospital Encounter [place] [phone] Ovary cancer, right; Ovary cancer, left Discharge [...] Sign Reading Time Taken Comments Blood Pressure 148/67 04/01/2021 11:10 AM EST Pulse 115 04/01/2021 11:10 AM EST Temperature - - Respiratory Rate - - Oxygen Saturation 98% 04/01/2021 11:10 AM EST Inhaled Oxygen Concentration - - [...] BY MOUTH FOUR TIMES A DAY 11/03/2020 potassium chloride (KLOR-CON) 20 mEq PacketIndications:Hyp okalemia due to inadequate potassium intake Take 20 mEq by mouth daily for 7 days. 7 packet 04/01/2021 04/08/2021 OLANZapine (ZyPREXA) 5 mg TabletIndications:Caroline motherapy induced [...] continuously throughout your chemotherapy treatment with Paclitaxel. Kzqtf-Jxahuf-Thpj (ALA): Take 600 mg by mouth daily. [...] as of this encounter Progress Notes * Dionne Ayala RN - 04/01/2021 10:53 AM EST Patient Name: Dalia Mcfarlane Patient Age: 65 y.o. Birthdate: 1955 Admit date: 04/01/2021 Attending Physician: No att. providers found Dalia Mcfarlane, 65 y.o. female with diagnosis of ovarian cancer is here for chemotherapy infusion of Paclitaxel and Carboplatin and ONPRO application. PROTOCOL: No CYCLE: 6 DAY: 1 S: Pt. offers no complaints at this time. Reviewed plan of care for infusion visit; patient verbalized understanding of plan as outlined. O: Chemotherapy orders independently verified for correct drug name, route and dosage per patient'sheight, weight and BSA by Dionne Ayala RN and onsite pharmacist. Chemotherapy administered per hospital policy. REACTIONS (DESCRIPTION, TIME, INTERVENTION AND EFFECTIVENESS) None reported. A: Pt. Tolerated treatment well. Dalia Mcfarlane [...] 2 Minutes, ONCE, 1 dose, On Ange 04/01/21 at 1000, Alternative administration of IV push over 2 minutes is a recommendation from the wireless watcher. Administer prior to chemotherapy., Routine Given 04/01/2021 10:38 AM EST 130 mg CARBOplatin (Paraplatin) 453 mg in dextrose 5% 295.3 mL infusion 453 mg (Target AUC = 5), Intravenous, ONCE, 1 dose, On Ange 04/01/21 at 1100, Administer over 30 Minutes, Warning Vesicant/Irritant Medication New Bag 04/01/2021 3:18 PM EST 453 mg 590.6 mL/hr dexamethasone (PF) (Decadron) (10 mg/mL) injection 10 mg 10 mg, Intravenous, ONCE, 1 dose, On Ange 04/01/21 at 1000, Administer 30 minutes prior to PACLitaxel Given 04/01/2021 10:33 AM EST 10 mg diphenhydrAMINE (Benadryl) capsule 50 mg 50 mg, Oral, ONCE, 1 dose, On Ange 04/01/21 at 1000, Administer 30 minutes prior to PACLitaxel, Routine Given 04/01/2021 10:28 AM EST 50 mg famotidine (Pepcid) (10 mg/mL) injection 20 mg 20 mg, Intravenous, ONCE, 1 dose, On Ange 04/01/21 at 1000, Administer 30 minutes prior to PACLitaxel Given 04/01/2021 10:36 AM EST 20 mg PACLitaxeL (Taxol) 320 mg in dextrose 5% Non-PVC 553.3333 mL infusion 320 mg (rounded from 320.25 mg = 175 mg/m2/dose ? 1.83 m2 Treatment Plan BSA from Recorded weight), Intravenous, ONCE, 1 dose, On Ange 04/01/21 at 1100, Administer over 3 Hours, Warning Vesicant/Irritant Medication See dose ramp up in [place] plan for administration instructions Rate/Dose Change 04/01/2021 12:15 PM EST 184.4 mL/hr Rate/Dose Change 04/01/2021 11:55 AM EST 90 mL/ hr New Bag 04/01/2021 11:19 AM EST 320 mg 45 mL/hr palonosetron (Aloxi) (0.05 mg/mL) injection 0.25 mg 0.25 mg, Intravenous, ONCE, 1 dose, On Ange 04/01/21 at 1000, Administer over 30 seconds., Routine Given 04/01/2021 10:30 AM EST 0.25 mg pegfilgrastim (Neulasta Onpro) (6 mg/0.6 mL) injection kit 6 mg 6 mg, Subcutaneous, ONCE, 1 dose, On Ange 04/01/21 at 1000, Allow the prefilled syringe co-packaged with the on-body injector to reach room temperature at least 30 minutes prior to administration., Routine, This agent is restricted to outpatient use. Is this drug being given as an outpatient? Yes Given 04/01/2021 3:51 PM EST 6 mg Left Arm sodium chloride 0.9 % (flush) (BD PosiFlush Normal Saline 0.9) flush 5-20 mL 5-20 mL, Intravenous, EVERY 1 MIN PRN, Starting on Ange 04/01/21 at 0934, Until Mon04/02/21 at 0435, Line Care, Flush pertains to all indwelling lines. Flush per protocol found in the job aid using the link provided on this medication record. Refer to Intravenous (IV) Job Aid: Adult Flushing & Catheter Care (6463) job aid for additional information regarding guidelines and administration., Routine Given 04/01/2021 3:54 PM EST 20 mLs sodium chloride 0.9% infusion 75 mL/hr, Intravenous, CONTINUOUS, Starting on Ange 04/01/21 at 1000, Until Mon04/02/21 at 0435 New Bag 04/01/2021 10:35 AM EST 75 mL/hr 75 mL/hr documented in this encounter Care Teams Oil Field Caser Relationship Specialty Start Date End Date Sue Espinosa PA [address] [place] [id number] PCP - General Family Medicine 11/09/20 02/14/22 documented as of this encounter
--- OUTSIDE RECORDS SUMMARY | 2024-01-02 18:40 | XMS_ITS | Encounter Summary ---
Author Organization [facility] Address [facility] [place] [address] Care Team Providers Care Sandblast Carver Name Role Phone Sue Espinosa Primary Care Provider [phone] Reason for Visit * Reason Comments Chemotherapy Encounter Details Date Type Department Care Team (Late st Contact Info) Description 04/01/2021 8:00 AM EST Office Visit [place] [address] Aletha Francois MD [facility] DR OBSTETRICS [place] [address] Chemotherapy induced nausea and vomiting; Hypokalemia due to inadequate potassium intake Social [...] Sign Reading Time Taken Comments Blood Pressure 137/94 04/01/2021 8:27 AM EST Pulse 145 04/01/2021 8:27 AM EST Temperature 37.7 ??C (99.9 ??F) 04/01/2021 8:27 AM ES T Respiratory Rate 20 04/01/2021 8:27 AM EST Oxygen Saturation 99% 04/01/2021 8:27 AM EST Inhaled Oxygen Concentration - - Weight 65.1 kg (143 lb 9.6 oz) 04/01/2021 8:27 A M EST Height 165.1 cm (5' 5) 04/01/2021 8:27 AM EST Body Mass Index 23.9 04/01/2021 8:27 AM EST documented in this encounter Progress Notes * Aletha Francois MD - 04/01/2021 8:00 AM EST Images from the original note were not included. GYNECOLOGIC ONCOLOGY OUT PATIENT FOLLOW UP Date: 04/01/2021 Name: Dalia Mcfarlane : 1955 CSN: [id number] Patient Care Team: Patient Care Team: Sue [...] abdominal pain and presented to ED [facility] 11/06/20 associated with some nausea. Patient reports prior episode 10 years earlier and diagnosis with UTI and treated with antibiotic. Surgery 11/19/20 optimal debulking total abdominal hysterectomy bilateral salpingo-oophorectomy omentectomy Here with today. Last visit: 03/01/21 Interval history Decadron premeds for chemotherapy due to taxol reaction with 1st cycle Onpro for neutropenia 1. Thrush mouth resolved after using mouthwash 2. Nausea much worse this cycle - started about day 5 and more severe than in past cycles. Patient had couple days of no drinking. Patient called 03/17/21 with c/o severe dizziness and weakness. Labs 03/22/21 showed hypokalemia 2.7 normal liver function tests' and hgb 10 Patient ultimately used compazine and zofran and hydrated with gatorade and started K supplements for several days. Pills large and difficult for her to take. 3. Bowel movement regular 4. Neuropathy fingers hand and feet using B6, unable tolerate glutamine now more regularly and patient reports she trips over feet, needs help getting things out of her wallet . Doing laundry, still knitting and moving well at home 4. Pain meds Sue AVALOS has helped adjust using amitriptyline and neurontin twice daily for her overall body aches. Patient off norco. Patient feels her body aches are worse and she is anxious to develop better medication plan. 5. Patient remains on onpro no issues 6. Patient saw Genetics for consultation sent in swab test results negative Patient reports she is feeling better and doing more at home but sleep still an issue, falling asleep and then wakes and stays up. Appetite and energy level better but did not get to baseline this past cycle. mediport in place and working well. Patient plans to get it flushed closer to home in [facility]. COVID vaccinated. Performance Status: 0 Oncology History [...] my consultation today with the patient. CA 125= 14 03/30/21 CA 125 = 10 03/09/21 CA 125 = 13 02/15/21 [facility] [place] Left ovary (partial oophorectomy): [...] lymph node. Negative cytology TVS 11/06/20 [facility] N CT ABD/PELVIS [facility] ED 11/06/20 Labs Creatinine 1.0 Normal LFT Total protein 7.9. 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 CURRENT MEDICATIONS Current Outpatient Medications Medication Sig Dispense Refill No current facility-administered medications for this visit. PHYSICAL EXAM BP (!) 137/94 Pulse (!) 145 Temp 37.7 ??C (99.9 ??F) Resp 20 Ht 165.1 cm (5' 5) Wt 65.1 kg (143 lb 9.6 oz) SpO2 99% BMI 23.90 kg/m?? Exam: GENERAL: Well-appearing, female in no [...] the patient responds to questions appropriately in Monegasque. PELVIC EXAM: normal external genitalia, smooth vagina, cervix uterus surgically absent, well suspended no masses Genetic Testing negative Advance Directives Reviewed with [...] follow up Taxol reaction Chemotherapy associated neuropathy Hypokalemia Plan slow start taxol infusion today, which has worked very well. Add olanzapine antiemetic to regimen Patient is tolerating chemotherapy well and her energy and activities are increasing. Patient had taxol reaction which was managed with slowed infusion rate. We have pre-medicated with prednisone, which patient has tolerated well for past cycles. Plan to continue onpro for patient [...] cycles taxol carboplatin intravenous chemotherapy. We will repeat imaging post 6 cycles of chemotherapy to better assess tumor response given history of normal preoperative CA on 125 if any new symptoms or findings on exam. I discussed this in detailwith the patient and her today as well as the rationale for imaging. D/w the plan for q 3 months surveillance with CA 125 and pelvic exam. D.w them at length rationale for pelvic exams to monitor. Patient finds pelvic exams very uncomfortable and desired more information as to why we perform them. Genetic testing. - Genetics referral done negative. Pain I discussed with her PCP Sue Buckner in the past and plans to have all subsequent pain medication including Ativan coordinated through her PCP. Patient has discontinued her opioids under the guidance of her PCP with good effect. Patient encouraged to pursue pain team consult locally after chemotherapy to optimize her pain regimen and plan. I have shared this information with my colleagues and team members who understand they will not prescribe any further narcotic prescriptions or Ativan. I personally spent a total of 30 minute visit in counseling and coordinating care for Dalia Mcfarlane. We discussed the plan and rationale for ongoing surveillance. RTC [address] scan and follow up visit. Signed, Aletha Francois MD 04/01/2021 documented in this encounter Plan of Treatment Not on file documented as of this encounter Visit Diagnoses Diagnosis Chemotherapy induced nausea and vomiting Nausea with vomiting Hypokalemia due to inadequate potassium intake documented in this encounter Care Teams Sandblast Carver Relationship Specialty Start Date End Date Sue Espinosa PA [address] [place] [id number] PCP - General Family Medicine 11/09/20 02/14/22 documented as of this encounter
--- OUTSIDE RECORDS SUMMARY | 2024-01-02 18:40 | XMS_ITS | Encounter Summary ---
Author Organization [facility] [place] [address] Care Team Providers Care Pet Care Technician Name Role Phone Sue Espinosa Primary Care Provider [phone] Encounter Details Date Type Department Care Team (Late st Contact Info) Description 03/16/2021 Orders Only [place] [address] Aletha Francois MD [facility] DR OBSTETRICS [place] [address] Chemotherapy induced nausea and vomiting Social History [...] vomiting documented in this encounter Care Teams Pet Care Technician Relationship Specialty Start Date End Date Sue Espinosa PA [address] [place] [id number] PCP - General Family Medicine 11/09/20 02/14/22 documented as of this encounter
--- OUTSIDE RECORDS SUMMARY | 2024-01-02 18:40 | XMS_ITS | Encounter Summary ---
Author Organization [facility] Address [facility] [place] [address] Care Team Providers Care Stamp Mounter Name Role Phone Sue Espinosa Primary Care Provider [phone] Encounter Details Date Type Department Care Team (Late st Contact Info) Description 03/30/2021 Orders Only [place] [address] Aletha Francois MD [facility] [address] [place] [address] Social History Tobacco Use Types Packs/Day Years [...] on filedocumented in this encounter Care Teams Stamp Mounter Relationship Specialty Start Date End Date Sue Espinosa PA [address] [place] [id number] PCP - General Family Medicine 11/09/20 02/14/22 documented as of this encounter
--- OUTSIDE RECORDS SUMMARY | 2024-01-02 18:40 | XMS_ITS | Encounter Summary ---
Author Organization [facility] Address [facility] [place] [address] Care Team Providers Care Marble Ceiling Installer Name Role Phone Sue Espinosa Primary Care Provider [phone] Encounter Details Date Type Department Care Team (Late st Contact Info) Description 01/25/2021 Telephone Gyne[place] [address] Aletha Francois MD [facility] [address] [place]ST[place] [address] Social History Tobacco Use Types Packs/Day Years [...] encounter Miscellaneous Notes * Telephone Encounter - Aletha Francois MD - 01/25/2021 1:22 PM EST Tel call: to Sue Espinosa, KANG regarding patient's narcotic use/ patient appears to have diagnosis of herniated disc and has been receiving narcotics dating back one year from her primary care provider - Left a message I will attempt to discuss with team to optimize pain regimen, and plan on deferring all pain meds to pcp from now on. Patient really should not have pain from chemotherapy or cancer at this point. 01/19/2021: Vicodin 10/325 mg tablets #56 12/10/2020 Vicodin 10/325 mg tablets #35 12/03/2020 oxycodone 5 mg tablets #15 prescribed by neal 11/26/2020 oxycodone 5 mg tablets #15 prescribed by Shraddha 11/21/2020 oxycodone 5 mg tablets #12 prescribed by the [facility] 11/13/2020 oxycodone 5 mg tablets #15 prescribed by neal 11/06/2020 oxycodone 5 mg tablets #10 10/08/2020 Vicodin 10/325 mg tablets #168 08/28/2020 Vicodin 10/325 mg tablets #168 08/03/2020 Vicodin 10/325 mg tablets #168 07/06/2020 Vicodin 10/325 mg tablets #140 06/08/2020 Vicodin 10/325 mg tablets #140 05/12/2020 Vicodin 10/325 mg tablets #140 04/13/2020 Vicodin 10/325 mg tablets #140 03/16/2020 Vicodin 10/325 mg tablets #140 12/18/2019 Vicodin 10/325 mg tablets #140 01/30/2020 Vicodin 10/325 mg tablets #140 documented in this encounter Plan of Treatment Not on file documented as of this encounter Visit Diagnoses Not on filedocumented in this encounter Care Teams Marble Ceiling Installer Relationship Specialty Start Date End Date Sue Espinosa PA [address] [address] PCP - General Family Medicine 11/09/20 02/14/22 documented as of this encounter
--- OUTSIDE RECORDS SUMMARY | 2024-01-02 18:40 | XMS_ITS | Encounter Summary ---
Author Organization [facility] Address [facility] [place] [address] Care Team Providers Care Brazer Furnace Name Role Phone Sue Espinosa Primary Care Provider [phone] Encounter Details Date Type Department Care Team (Late st Contact Info) Description 01/28/2021 9:20 AM EST Office Visit [place] [id number] Aletha Francois MD [facility] DR OBSTETRICS [place] [address] Ovary cancer, right; Hypersensitivity reaction, sequela; Left ovarian epithelial cancer; S/P ECTOR-BSO (total abdominal hysterectomy and bilateral salpingo-oophorectomy ); Educational circumstance; Chemotherapy follow-up examination; Chemotherapy induced neutropenia; Other chronic pain Social History Tobacco Use [...] Sign Reading Time Taken Comments Blood Pressure 168/84 01/28/2021 9:17 AM EST Pulse 135 01/28/2021 9:17 AM EST Temperature 36.8 ??C (98.3 ??F) 01/28/2021 9:17 AM ES T Respiratory Rate - - Oxygen Saturation 95% 01/28/2021 9:17 AM EST Inhaled Oxygen Concentration - - Weight 69.2 kg (152 lb 8.9 oz) 01/28/2021 9:17 A M EST Height 165.1 cm (5' 5) 01/28/2021 9:17 AM EST Body Mass Index 25.39 01/28/2021 9:17 AM EST documented in this encounter Progress Notes * Aletha Francois MD - 01/28/2021 9:20 AM EST Images from the original note were not included. GYNECOLOGIC ONCOLOGY OUT PATIENT FOLLOW UP Date: 01/28/2021 Name: Dalia Tavera : 1955 CSN: [id number] Patient Care Team: Patient Care Team: Sue Espinosa PA as PCP - General (Family Medicine) CHIEF COMPLAINT Left ovarian cancer Chemotherapy follow up, cycle #3 scheduled for today HISTORY OF PRESENT ILLNESS Dalia Tavera is a 65 y.o. 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 Patient endorses acute onset abdominal pain and presented to ED [facility] 11/06/20 associated with some nausea. Patient reports prior episode 10 years earlier and diagnosis with UTI and treated with antibiotic. Here with today. Last visit: surgery 01/07/21 Interval history 1. Nausea using compazine, tried throw up twice 2. Bowel movement regular 3. Neuropathy Fingers hand none feet using B6, unable tolerate glutamine 4. Pain meds Sue AVALOS to help adjust using twice daily overall body aches. Patient plans to reducedose now that she is tolerating chemotherapy better. Patient reports she is feeling better and [...] TAVERA ( ) as of 01/30/2021 14:47 Ref. Range 11/13/2020 16:56 CA 125 Latest Ref Range: <=38.1 unit/mL 19.6 [facility] [place] Left ovary (partial oophorectomy): ? Ovarian [...] lymph node. Negative cytology TVS 11/06/20 [facility] N CT ABD/PELVIS [facility] ED 11/06/20 Labs Creatinine 1.0 Normal LFT Total protein 7.9. 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 CURRENT MEDICATIONS Current Outpatient Medications Medication Sig Dispense Refill No current facility-administered medications for this visit. PHYSICAL EXAM BP 168/84 Pulse (!) 135 Temp 36.8 ??C (98.3 ??F) Ht 165.1 cm (5' 5) Wt 69.2 kg (152 lb 8.9oz) SpO2 95% BMI 25.39 kg/m?? Exam: GENERAL: Well-appearing, female in no [...] the patient responds to questions appropriately in Indonesian. PELVIC EXAM: normal external genitalia, smooth vagina, cervix uterus and adnexa surgically absent vaginal cuff well suspended no masses normal parametria Genetic Testing Not yet done. Advance Directives Reviewed with patient on 11/13/20 [...] which was managed with slowed infusion rate. This cycle we pre-medicated with prednisone, which patient has tolerated well this cycle. Plan to continue onpro for patient this cycle due to her neutropenia in last cycle. Patient did nothave fevers, but due to co-morbidities, I feel i the right t is appropriate to optimize patient WBCnadir with chemotherapy. We discussed the side effects of these medications and rationale for theiruse. Plan to continue with chemotherapy taxol carboplatin intravenous today, labs cleared. Plan for 6 cycles taxol carboplatin intravenous chemotherapy. We may consider repeat imaging post 6 cycles of chemotherapy given history of normal preoperative CA on 125 if any new symptoms or findings on exam. Genetic testing In view of the patient's [...] with a documented. Mutation. - Genetics referral will be made again Pain I discussed with the patient and her my conversation with her PCP Sue Buckner and plansto have all subsequent pain medication including Ativan coordinated through her PCP. I reviewed with them the goals of care and that there should not be significant pain at this point due to her chemotherapy and she has recovered well from surgery. We discussed some of the perils of chronic opioid use to manage pain and I will defer to her PCP to manage her ongoing symptoms. I have shared this information with my colleagues and team members who understand they will not prescribe any further narcotic prescriptions or Ativan for Dalia. I personally spent a total of 30 minute visit in counseling and coordinating care for Dalia Tavera. We discussed the plan and rationale for ongoing surveillance. Signed, Aletha Francois MD 01/28/2021 documented in this encounter Plan of Treatment Not on file documented as of this encounter Visit Diagnoses Diagnosis Ovary cancer, right Hypersensitivity reaction, sequela Left ovarian epithelial cancer S/P ECTOR-BSO (total abdominal hysterectomy and bilateral salpingo-oophorectomy) Acquired absence of both cervix and uterus Educational circumstance Chemotherapy follow-up examination Chemotherapy induced neutropenia Drug induced neutropenia Other chronic pain documented in this encounter Care Teams Brazer Furnace Relationship Specialty Start Date End Date Sue Espinosa [place] [address] [place] [id number] PCP - General Family Medicine 11/09/20 02/14/22 documented as of this encounter
--- OUTSIDE RECORDS SUMMARY | 2024-01-02 18:40 | XMS_ITS | Encounter Summary ---
Author Organization [facility] [place] [address] Care Team Providers Care Sales Order Clerk Name Role Phone Sue Espinosa Primary Care Provider [phone] Reason for Visit * Treatment/Therapy Plan Authorization (Routine) - Closed Specialty Diagnoses / Procedures Referred By Contgenaro t Referred To Contact Hematology and Oncology Diagnoses Ovary cancer, right Ovary cancer, left Aletha Francois MD [facility] DR OBSTETRICS [place] [address] [facility] [address] [place] [address] Referral ID Status Reason Start Date Expiration Date Visits Re quested Visits Authorized [id number] Closed 12/07/2020 12/07/2021 99 99 Encounter Details Date Type Department Care Team (Latest Contact Info) Description 01/28/2021 8:51 AM EST - 01/28/2021 11:59 PM EST Hospital Encounter Hematology [place] [id number] Ovary cancer, right; Ovary cancer, left Discharge [...] Sign Reading Time Taken Comments Blood Pressure - - Pulse 129 01/28/2021 11:00 AM EST Temperature - - Respiratory Rate - - Oxygen Saturation - - Inhaled Oxygen Concentration - - Weight - - Height - - Body Mass Index - - documented in this encounter Medications at Time of Discharge Medication Sig Dispensed Refills Start Date End Date lidocaine-prilocaine (EMLA) CreamIndications:Left ovarian epithelial cancer Place [...] to chemotherapy. 60 tablet 1 12/18/2020 10/18/2021 HYDROcodone-acetamino phen ([place]) 10-325 mg Tablet 12/10/2020 02/18/2021 UNABLE TO FIND Glutamine: Please take 15 grams twice daily for 4 days following chemotherapy treatments. Vitamin B6 (Pyridoxine): Take 50 mg by mouth two times per day (or 100 mg once daily) continuously throughout your chemotherapy treatment with Paclitaxel. Aqszk-Olpjwr-Tszj (ALA): Take 600 mg by mouth daily. [...] as of this encounter Progress Notes * Chelita Juarez RN - 01/28/2021 11:54 AM EST Patient Name: Dalia Mcfarlane Patient Age: 65 y.o. Birthdate: 1955 Admit date: 01/28/2021 Attending Physician: No att. providers found TIME TREATMENT STARTED: 11:00 TIME TREATMENT ENDED: 16:30 Dalia Mcfarlane, 65 y.o. female with diagnosis of ovarian cancer is here for chemotherapy infusion of paclitaxel and carboplatin. REGIMEN: Carboplatin/ Paclitaxel CYCLE: 3 DAY: 1 S: Pt. offers no complaints at this time. O: Chemotherapy orders independently verified for correct drug name, route and dosage per patient'sheight, weight and BSA by Chelita Juarez RN, Madelin Grader RN and onsite pharmacist. Because the patient has reacted to Taxol, she took steroids at home last night and this morning. Taxol run at full rate for the entire infusion - tolerated well. REACTIONS (DESCRIPTION, TIME, INTERVENTION AND EFFECTIVENESS) None A: Pt. Tolerated treatment well. Dalia Mcfarlane confirms that all questions and issues have been addressed. P: Return to clinic 02/18 for provider visit and infusion. documented in this encounter Plan of Treatment [...] 2 Minutes, ONCE, 1 dose, On Ange 01/28/21 at 1100, Alternative administration of IV push over 2 minutes is a recommendation from the master in chancery. Administer prior to chemotherapy., Routine Given 01/28/2021 11:47 AM EST 130 mg CARBOplatin (Paraplatin) 453 mg in dextrose 5% 295.3 mL infusion 453 mg (Target AUC = 5), Intravenous, ONCE, 1 dose, On Ange 01/28/21 at 1200, Administer over 30 Minutes, Warning Vesicant/Irritant Medication New Bag 01/28/2021 3:36 PM EST 453 mg 590.6 mL/hr dexamethasone (PF) (Decadron) (10 mg/mL) injection 10 mg 10 mg, Intravenous, ONCE, 1 dose, On Ange 01/28/21 at 1100, Administer 30 minutes prior to PACLitaxel Given 01/28/2021 11:39 AM EST 10 mg diphenhydrAMINE (Benadryl) capsule 50 mg 50 mg, Oral, ONCE, 1 dose, On Ange 01/28/21 at 1100, Administer 30 minutes prior to PACLitaxel, Routine Given 01/28/2021 11:39 AM EST 50 mg famotidine (Pepcid) (10 mg/mL) injection 20 mg 20 mg, Intravenous, ONCE, 1 dose, On Ange 01/28/21 at 1100, Administer 30 minutes prior to PACLitaxel Given 01/28/2021 11:39 AM EST 20 mg PACLitaxeL (Taxol) 320 mg in sodium chloride 0.9% Non-PVC 553.3333 mL infusion 320 mg (rounded from 320.25 mg = 175 mg/m2/dose ? 1.83 m2 Treatment Plan BSA from Recorded weight), Intravenous, ONCE, 1 dose, On Ange 01/28/21 at 1200, Administer over 3 Hours, Warning Vesicant/Irritant Medication New Bag 01/28/2021 12:13 PM EST 320 mg 184.4 mL/hr palonosetron (Aloxi) (0.05 mg/mL) injection 0.25 mg 0.25 mg, Intravenous, ONCE, 1 dose, On Ange 01/28/21 at 1100, Administer over 30 seconds., Routine Given 01/28/2021 11:47 AM EST 0.25 mg pegfilgrastim (Neulasta Onpro) (6 mg/0.6 mL) injection kit 6 mg 6 mg, Subcutaneous, ONCE, 1 dose, On Ange 01/28/21 at 1600, Allow the prefilled syringe co-packaged with the on-body injector to reach room temperature at least 30 minutes prior to administration., Routine, This agent is restricted to outpatient use. Is this drug being given as an outpatient? Yes Given 01/28/2021 4:20 PM EST 6 mg sodium chloride 0.9% infusion 75 mL/hr, Intravenous, CONTINUOUS, Starting on Ange 01/28/21 at 1100, Until Mon01/29/21 at 0440 New Bag 01/28/2021 11:36 AM EST 75 mL/hr 75 mL/hr documented in this encounter Care Teams Sales Order Clerk Relationship Specialty Start Date End Date Sue Espinosa PA [address] [place] [id number] PCP - General Family Medicine 11/09/20 02/14/22 documented as of this encounter
--- OUTSIDE RECORDS SUMMARY | 2024-01-02 18:40 | XMS_ITS | Encounter Summary ---
Author Organization [facility] [place] [address] Care Team Providers Care Answering Service Telephone Operator Name Role Phone Sue Espinosa Primary Care Provider [phone] Encounter Details Date Type Department Care Team (Late st Contact Info) Description 03/10/2021 Telephone Gynecology Oncology at [facility] [place] [place] [address] hSannon Hebert, RN Social History Tobacco Use Types Packs/Day [...] Telephone Encounter - Teri Torre RN - 03/11/2021 8:26 AM EST Called [facility]. Requested they send the most recent labs results to us at [phone]. * Telephone Encounter - Shannon Hebert RN - 03/10/2021 4:32 PM EST Reviewed patient's labs. Called and informed her that they are within treatment parameters. Patientverbalized understanding. Denies any further questions at this time. * Telephone Encounter - Shannon Hebert RN - 03/10/2021 4:28 PM EST Called [facility] to get a copy of patient's blood work results. Per Jhonny in laboratory states that their fax machine is down. Verbal Lab results provided over the phone as follows: ANC = 3.09 Platelets = 243 Hemoglobin = 10.8 Creatinine = 0.7 Sodium = 138 Potassium = 3.4 ALT = 20 AST = 14 documented in this encounter Plan of Treatment Not on file documented as of this encounter Visit Diagnoses Not on filedocumented in this encounter Care Teams Answering Service Telephone Operator Relationship Specialty Start Date End Date Sue Espinosa PA [address] [place] [id number] PCP - General Family Medicine 11/09/20 02/14/22 documented as of this encounter
--- OUTSIDE RECORDS SUMMARY | 2024-01-02 18:40 | XMS_ITS | Encounter Summary ---
Author Organization [facility] [place] [address] Care Team Providers Care Director Of Assessment Name Role Phone Deedee Cruz MD Primary Care Provider [phone] Reason for Visit * Reason Comments Follow-up Encounter Details Date Type Department Care Team (Late st Contact Info) Description 02/14/2022 9:20 AM EST Office Visit [place] [address] Aletha Francois MD [facility] DR OBSTETRICS [place] [address] Ovary cancer, right; Chemotherapy-induced peripheral neuropathy Social History Tobacco Use Types Packs/Day Years [...] Sign Reading Time Taken Comments Blood Pressure 143/80 02/14/2022 9:58 AM EST Pulse 113 02/14/2022 9:58 AM EST Temperature 2.6 ??C (36.6 ??F) 02/14/2022 9:58 AM EST Respiratory Rate - - Oxygen Saturation 96% 02/14/2022 9:58 AM EST Inhaled Oxygen Concentration - - Weight 81.1 kg (178 lb 14.4 oz) 02/14/2022 9:58 AM EST Height - - Body Mass Index 29.77 10/18/2021 9:36 AM EDT documented in this encounter Progress Notes * Aletha Francois MD - 02/14/2022 9:20 AM EST Images from the original note were not included. GYNECOLOGIC ONCOLOGY OUT PATIENT FOLLOW UP Date: 02/14/22 Name: Dalia Mcfarlane : 1955 CSN: [id number] Patient Care Team: Patient Care Team: Sue Espinosa PA as PCP - General (Family Medicine) Dr Deedee Cruz [address] [place] [address] CHIEF COMPLAINT Left ovarian cancer Chemotherapy follow up HISTORY OF PRESENT ILLNESS Dalia Mcfarlane is a 66 y.o. 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 Patient endorses acute onset abdominal pain and presented to ED [facility] 11/06/20 associated with some nausea. Patient reports prior episode 10 years earlier and diagnosis with UTI and treated with antibiotic. Surgery 11/19/20 optimal debulking total abdominal hysterectomy bilateral salpingo-oophorectomy omentectomy Last cycle 04/03 s/p 6 cycles Last visit: 11/01 Interval history: 1. Patient noted some nail changes between last visit which are better now 2. Neuropathy - hands and feet, able to knit able to put in jewelry 3. Chronic imbalance that has necessitated safety bars in the house for 4 years 4[address] November MD Dr Deedee Cruz new PCP, ordered many tests in [place] 5. History fibromyalgia 20 years ago, chronic fatigue. Able to go out and and around town and performance status is quite good. Visited family with guests all this summer and able to visit [place] in December for 8 days No further nausea, normal bowel movement 6. Recent ear infection and diarrhea as the patient has completed recent Augmentin course. Not sexually active on bleeding Here with today. Continues with fatigue Nausea [...] overall body aches. Patient remains off narcotics Patient able to do errands and get out of house. mediport in place and working well. Patient plans to get it flushed closer to home in [facility].May 26, 2021 scheduled to have it flushed. [...] 06/01 Last Colorectal Screen: > 10 years ago, advised to have colonoscopy IMAGING AND LAB REVIEW I personally reviewed labs/radiology reports/pathology tests and other supporting records as part of my consultation today with the patient. CA 125 12/02, 02/01 < 15 Additional testing ordered by PCP included homocystine levels, hemoglobin electrophoresis, blood count liver function tests CAT scan from [place] January 2022 Reveals no sign any malignancy or concerning features CA 125 = 13 06/18/21 [facility] [place]21 Vasculature: Patent portal veins. Smooth-walled [...] Postsurgical changes have resolved. ??labs done at [facility] 11/01 CA 125= 7 per CA 125 = 18 04/26/21 CA 125= 14 03/30/21 CA 125 = 10 03/09/21 CA 125 = 13 02/15/21 [facility] [place] Left ovary (partial oophorectomy): ? Ovarian [...] benign lymph node. Negative cytology TVS 11/06/[address] [facility] [address] ABD/[facility] ED 11/06/20 Labs Creatinine 1.0 Normal LFT Total protein 7.9. albumin 3.9 lipase normal PAST HISTORY Past Medical History arthritis chronic pain diffuse Past Surgical History Cataracts 03/2018 Herniated disc laser surgery Right toe bone repaired Past TALENT SCOUT History G0 Menstrual History: 13 Dysplasia History: none Hotflashes: moderate in past now mild Sexually active: not control: OCP in 30's 2 years Did not try infertility treatment in past Allergies NKDA Social History Tobacco: never Alcohol: rare Employment: retired worked for [employer] in [place], moved 4 years ago from [place] Marital Status: Living Situation as above Family [...] were no vitals taken for this visit. There were no vitals taken for this visit. Exam GENERAL: Well-appearing, female in no acute [...] surveillance with CA 125 and pelvic exam. D/w them at length rationale for pelvic exams to monitor. Patient finds pelvic exams very uncomfortable and we plan to do them every other visit and I explained to the patient and her again the reason they are so helpful to assess the patient with a history of pelvic cancer. We discussed at length the rationale for CAT scan imaging given that the patient has had a normal CA125. The patient remains without any evidence of disease for 1 year and I would recommend consideration of CAT scans again in 2022 with no evidence to support routine scanning of this patient given that she remains without any clinical evidence of disease and asymptomatic. Port will remain in place for longer period observation and has arranged for flushing locally q 4-6weeks. We discussed consideration of removing the Mediport anytime the patient would like and I will have my staff coordinate this with the patient in the new year. Reviewed numerous lab tests with patient and her , which remain normal. I do not recommend any additional laboratory testing beyond her routine healthcare maintenance testing unless change in symptoms. Patient to follow with pcp. Genetic testing. - Genetics done negative. Pain Patient has discontinued her opioids under the guidance of her PCP and appears to be much happier with her current provider and medications. Health care maintenance I would strongly recommend consider a colonoscopy for this patient, which I discussed with both thepatient and her and reinforced the importance of colon cancer screening. RTC 3-4 months for follow up visit with CA 125. Remove port cath mediport I personally spent a total of 30 minute visit in counseling and coordinating care for Dalia Mcfarlane. We discussed the plan and rationale for ongoing surveillance. Lopez, Aletha Francois MD 02/10/2022 documented in this encounter Plan of Treatment Not on file documented as of this encounter Visit Diagnoses Diagnosis Ovary cancer, right Chemotherapy-induced peripheral neuropathy documented in this encounter Care Teams Director Of Assessment Relationship Specialty Start Date End Date Deedee Cruz MD [address] [place] [address] PCP - General Oncology 02/15/22 documented as of this encounter
--- OUTSIDE RECORDS SUMMARY | 2024-01-02 18:40 | XMS_ITS | Encounter Summary ---
Author Organization [facility] [place] [address] Care Team Providers Care School Bus Aide Name Role Phone Sue Espinosa Primary Care Provider [phone] Reason for Referral * Consultation (Routine) - Closed Specialty Diagnoses / Procedures Referred By Contgenaro t Referred To Contact Hematology and Oncology Diagnoses Ovary cancer, right Left ovarian epithelial cancer Evelyn Hernandez APRN [facility] OBSTETRICS & [place] [address] [facility] [address] [place] [address] Referral ID Status Reason Start Date Expiration Date V isits Requested Visits Authorized [id number] Closed Consult, Test & Treat 02/01/2021 02/01/2022 1 1 Encounter Details Date Type Department Care Team (Late st Contact Info) Description 02/01/2021 Orders Only [place] [address] Evelyn Hernandez APRN [facility] OBSTETRICS [place] [address] Ovary cancer, right; Left ovarian [...] as of this encounter Plan of Treatment Scheduled Referrals Name Type Priority Associated Diagnoses Orde r Schedule Referral to Familial Cancer Outpatient Referral Routine Ovary cancer, right Left ovarian epithelial cancer Ordered: 02/01/2021 documented as of this encounter Visit Diagnoses Diagnosis Ovary cancer, right Left ovarian epithelial cancer documented in this encounter Care Teams School Bus Aide Relationship Specialty Start Date End Date Sue Espinosa PA [address] [place] [id number] PCP - General Family Medicine 11/09/20 02/14/22 documented as of this encounter
--- OUTSIDE RECORDS SUMMARY | 2024-01-02 18:40 | XMS_ITS | Encounter Summary ---
Author Organization [facility] [address] Care Team Providers Care Record Retrieval Specialist Name Role Phone Sue Espinosa Primary Care Provider [phone] Encounter Details Date Type Department Care Team (Late st Contact Info) Description 01/23/2021 Orders Only Gy[place] [address] Aletha Francois MD [facility] DR OBSTETRICS [place] [address] Social History Tobacco Use Types Packs/Day Years [...] on filedocumented in this encounter Care Teams Record Retrieval Specialist Relationship Specialty Start Date End Date Sue Espinosa PA [address] [place] [id number] PCP - General Family Medicine 11/09/20 02/14/22 documented as of this encounter
--- OUTSIDE RECORDS SUMMARY | 2024-01-02 18:40 | XMS_ITS | Encounter Summary ---
Author Organization [facility] [place] [address] Care Team Providers Care Licensed Clinical Psychologist Name Role Phone Sue Espinosa Primary Care Provider [phone] Encounter Details Date Type Department Care Team (Late st Contact Info) Description 01/25/2021 Notes Only Gynecology Oncology at [place] [phone] Evelyn Hernandez APRN [facility] DR OBSTETRICS & GYNECOLOGY [place] [id number] Social History Tobacco Use Types Packs/Day Years Used Date Smoking Tobacco: Never Smokeless Tobacco: Never Alcohol Use Standard Drinks/Week Comments Never 0 (1 standard drink = 0.6 oz pur e alcohol) Sex and Gender Information Value Date Recorded Sex Assigned at Not on file Gender Identity Not on file Sexual Orientation Not on file documented as of this encounter Progress Notes * Evelyn Hernandez APRN - 01/25/2021 10:04 AM EST Division [place] [address] The following message was received from Dalia: I saw my GP on Monday and she issued me some pain medication to help with the chemo pain. She onlygave me 2 pills a day. On my really bad days its not enough but have to make it work. I appreciate any medication to help keep me comfortable and get me through this. I know I'm not the only patient the team has to deal with, but I appreciate the attention and care I'm given. I hope I'm not being too pesty. I've learned so much about cancer and how to deal with it. With Kind Regards, Dalia This field underwriter called Dalia to do a pain assessment. Dalia reports a baseline of chronic pain from arthritis. She reports that her PCP office is managing her chronic pain and opiate prescriptions. She stated her primary care provider did not want twoproviders writing for controlled medications, unless there is communication between the 2 providers. This field underwriter stated that it is a general science teacher in this division to practice in the same manner, and have one provider order controlled medications. She stated that her baseline pain has worsened since starting chemotherapy. She reports the pain intensifies on the day of treatment, and 4 to 5 days after treatment with severe joint pain. Meds were reviewed and she is taking the following for her pain: Hydrocodone/APAP 10/325 mg tablets, 1 tablet twice daily. Gabapentin 600 mg, 1 capsule 4 times daily. APAP 325 mg tablets, 1 tablet twice daily. She stated she is no longer taking meloxicam or ibuprofen due to a sensitive stomach. She states she has tried taking them with food without any difference. Pain is constant. She quantifies her pain at present as an 8/10 and reports the pain is all over (her) body, mostly legs. She reports this pain is the same pain she has at baseline, but has intensified after starting chemotherapy. She reports her pain is consistently an 8/10 and does not get better than this. Upon further assessment, she reports that her pain does go down to a 5/10 after takinghydrocodone/APAP and that she has several hours of relief with the same. Aggravating factor identified has been chemotherapy. Relieving factors identified are use of a heating pad, warm showers, wearing long alexander and using blankets for comfort. She does report she is able to do her ADLs and IADLs. Plan: 1. Patient is using loratadine 10 mg daily x5 days starting on the day of taxane therapy. While shestates she does not see a difference, this field underwriter encouraged her to continue to use this, as the pain may be worse without it. 2. This field underwriter stated she could increase her APAP 325 mg tablets to 2 tablets 3 times daily. Education was provided that there is 325 mg in a hydrocodone/APAP prescription which she takes twice daily. Education was provided to not exceed 1000 mg in a 4 to 6-hour period, and to not exceed 4000 mg cristine 24-hour. Using APAP in this manner would be a 24-hour dose of 2600 mg. Patient verbalized understanding. Patient will follow up with Dr. Aletha Francois at her appointment this week. Evelyn Hernandez APRN documented in this encounter Plan of Treatment Not on file documented as of this encounter Visit Diagnoses Not on filedocumented in this encounter Care Teams Licensed Clinical Psychologist Relationship Specialty Start Date End Date Sue Espinosa PA [address] [place] [id number] PCP - General Family Medicine 11/09/20 02/14/22 documented as of this encounter
--- OUTSIDE RECORDS SUMMARY | 2024-01-02 18:40 | XMS_ITS | Encounter Summary ---
[place] [address] Care Team Providers Care Filenet P8 Developer Name Role Phone Deedee Cruz MD Primary Care Provider [phone] Encounter Details Date Type Department Care Team (Late st Contact Info) Description 02/17/2022 Orders Only Gynecology [place] [address] Teri Torre RN Ovary cancer, right Social [...] right documented in this encounter Care Teams Filenet P8 Developer Relationship Specialty Start Date End Date Deedee Cruz MD [address] [place] [address] PCP - General Oncology 02/15/22 documented as of this encounter
--- OUTSIDE RECORDS SUMMARY | 2024-01-02 18:40 | XMS_ITS | Encounter Summary ---
Author Organization [facility] Address [facility] [place] [address] Care Team Providers Care Content Designer Name Role Phone Sue Espinosa Primary Care Provider [phone] Encounter Details Date Type Department Care Team (Latest Contact Info) Description 04/26/2021 12:50 PM EST - 04/26/2021 1:25 PM EST Hospital Encounter Hematology [place] [address] Ovary cancer, right (Primary Dx) Discharge Disposition: Home Social History Tobacco Use [...] continuously throughout your chemotherapy treatment with Paclitaxel. Oyffi-Mfnfto-Zsox (ALA): Take 600 mg by mouth daily. [...] Notes * Aletha Francois MD - 04/26/2021 4:28 PM EST Labs all look good. * Lina Delgado RN - 04/26/2021 1:24 PM EST Patient Name: Dalia Mcfarlane Patient Age: 65 y.o. Birthdate: 1955 Admit date: 04/26/2021 Attending Physician: No att. providers found Access visit. See MAR and/or flowsheet. documented in this encounter Plan of Treatment Not on file documented as of this encounter Procedures Procedure Name Priority Date/Time Associated Diagnosis Comments HEMOGRAM Routine 04/26/2021 1:22 PM EST Ovary cancer, right DIFFERENTIAL, AUTOMATED Routine 04/26/2021 1:22 PM EST Ovary cancer, right HC CBC,PLT & AUTO DIFF Routine 1:22 PM EST Ovary cancer, right HC CANCER ANTIGEN 125 Routine 04/26/2021 1:22 PM EST Ovary cancer, right COMPREHENSIVE METABOLIC PANEL Routine 04/26/2021 1:22 PM EST Ovary cancer, right documented in this encounter Results * Differential, Automated (04/26/2021 1:22 PM EST) Neutrophil % 60.3 % [facility] Neutrophil Absolute 2.75 1.70 - 6.10 x10(3)/[facility] Lymph % 29.4 % [facility] Lymphocytes Abs 1.3 0.9 - 3.2 x10(3)/[facility] Monocyte % 8.3 % [facility] Monocyte Abs 0.4 0.3 - 0.9 x10(3)/[facility] Eos % 0.9 % [facility] Eosinophils Abs 0.0 0.0 - 0.4 x10(3)/[facility] Basophil % 0.4 % [facility] Baso Absolute 0.0 0.0 - 0.1 x10(3)/[facility] Immature Gran % 0.70 % [facility] Comment: Immature granulocytes(IG's)percentage and absolute count will include metamyelocytes, myelocytes, and promyelocytes. Blood smears from CBCs yielding IG's will be scanned manually for concordance. If this scan disagrees with the automated IG or if promyelocytes are noted, a manual differential will be performed. Immature Gran Absolute 0.03 0.00 - 0.04 x10(3)/[facility] Blood 04/26/2021 1:22 PM EST 04/26/2021 1:29 PM EST Narrative Resulting Agency Comment Spec In Lab Aletha Francois MD HEMATOLOGY ORDERABLE S [facility] [place] [address] * (ABNORMAL) Hemogram (04/26/2021 1:22 PM EST) White Blood Cell 4.6 4.0 - 9.5 x10(3)/ L [facility] Red Blood Cell 3.12(L) 4.00 - 5.21 x10(6)/mc L [facility] Hemoglobin 11.2(L) 11.7 - 15.5 g/dL [facility] Hematocrit 32.4(L) 35.7 - 45.8 % [facility] Mean Cell Volume 103.8(H) 82.6 - 94.4 fL [facility] Mean Cell Hemoglobin 35.9(H) 27.1 - 32.0 pg [facility] Mean Cell Hemoglobin Concentration 34.6 31.7 - 35.0 g/dL [facility] Platelet 220 145 - 357 x10(3)/[facility] RDW Standard Deviation 53.1(H) 37.0 - 46.0 [facility] RDW coefficient of variation 13.8 11.5 - 14.1 % [facility] Mean Platelet Volume 8.5 7.6 - 12.9 fL [facility] NRBC% auto 0.0 % [facility] NRBC Absolute 0.000 0.000 - 0.000 x10(3)/[facility] Blood 04/26/2021 1:22 PM EST 04/26/2021 1:29 PM EST Narrative Resulting Agency Comment Spec In Lab Aletha Francois MD HEMATOLOGY ORDERABLE S [facility] [place] [address] * Cancer Antigen 125 (04/26/2021 1:22 PM EST) CA 125 18.3 <=38.1 unit/mL [facility] Comment: CA 125 Reference Interval ??Postmenopausal: 6.2 to 31.5 U/mL. ??Premenopausal: 6.9 to 45.9 U/mL. ??Pre and Postmenopausal subjects combined: 6.4 to 38.1 U/mL. Blood 04/26/2021 1:22 PM EST 04/26/2021 1:29 PM EST Narrative Resulting Agency Comment Spec In Lab Aletha Francois MD CHEMISTRY ORDERABLES [facility] [place] [address] * (ABNORMAL) Comprehensive metabolic panel (non-fasting) (04/26/2021 1:22 PM EST) Glucose 106 65 - 199 mg/dL [facility] Comment:Diabetes: >=200 mg/d L plus symptoms Blood Urea Nitrogen 4(L) 8 - 18 mg/dL [facility] Creatinine 0.62(L) 0.70 - 1.20 mg/dL [facility] Sodium 136 135 - 145 mmol/L [facility] Potassium 3.5 3.5 - 5.0 mmol/L [facility] Comment: Please note: ??Patients with WBC >100,000 may have falsely elevated Potassium levels. ??For accurate Potassium quantification in these patients send serum separator tube (gold top) for subsequent determinations. ??Contact the Clinical Chemistry Laboratory if there are any questions. Chloride 99 98 - 107 mmol/L [facility] Carbon Dioxide 25 22 - 31 mmol/L [facility] Anion Gap 12 5 - 15 mmol/L [facility] Calcium 8.8 8.5 - 10.5 mg/dL [facility] Protein, Total 6.3 6.1 - 8.0 g/dL [facility] Albumin 4.0 3.2 - 5.2 g/dL [facility] Aspartate Aminotransferase 15 0 - 30 unit/L [facility] Alanine Aminotransferase 10 0 - 30 unit/L [facility] Alkaline Phosphatase 92 35 - 105 unit/L [facility] Bilirubin, Total 0.3 0.2 - 1.3 mg/dL [facility] Est Glomerular Filtration Rate 95 >=60 mL/min/1. 73 m?? [facility] Comment: This patient? s estimated [...] In Lab Aletha Francois MD CHEMISTRY ORDERABLES [facility] [place] [address] documented in this encounter Visit Diagnoses Diagnosis Ovary cancer, right- Primary documented in this encounter Care Teams Content Designer Relationship Specialty Start Date End Date Sue Espinosa PA [address] [address] PCP - General Family Medicine 11/09/20 02/14/22 documented as of this encounter
--- OUTSIDE RECORDS SUMMARY | 2024-01-02 18:40 | XMS_ITS | Encounter Summary ---
[place] [address] Care Team Providers Care Sound Effects Technician Name Role Phone Deedee Cruz MD Primary Care Provider [phone] Reason for Referral * Diagnostic Test (Routine) - Closed Specialty Diagnoses / Procedures Referred By Contgenaro turk Referred To Contact Radiology Diagnoses Status post chemotherapy Procedures IR Mediport Removal Aletha Francois MD [facility] [address] OBSTETRICS [place] [address] [place] [address] Referral ID Status Reason Start Date Expiration Date V isits Requested Visits Authorized [id number] Closed Specialty Service Requested 02/15/2022 08/17/2023 1 1 Encounter Details Date Type Department Care Team (Late st Contact Info) Description 02/15/2022 Orders Only [place] [address] Shannon Hebert, YVES Status post chemotherapy Social History Tobacco Use Types Packs/Day Years [...] documented as of this encounter Results * IR Mediport Removal (06/06/2022 3:02 PM EDT) Anatomical Region Laterality Modality X-Ray Angiograph y Narrative 06/07/2022 10:08 AM EDT Interventional Radiology Procedure Note Procedure: Venous chest port explant Indication: Ovarian cancer; discontinue intermediate central venous access for chemotherapy Pre-procedure: Informed [...] with all components accounted for. Associate Provider (Sommelier): Joanna Bennett PA-C Attending of record: Arsen Rodriguez DO. I was not present. ?? 06/06/2022 Aletha Francois MD IMG IR ORDERABLES documented in this encounter Visit Diagnoses Diagnosis Status post chemotherapy Convalescence following chemotherapy Status post chemotherapy Convalescence following chemotherapy documented in this encounter Care Teams Sound Effects Technician Relationship Specialty Start Date End Date Deedee Cruz MD [address] [place] [id number] PCP - General Oncology 02/15/22 documented as of this encounter
--- OUTSIDE RECORDS SUMMARY | 2024-01-02 18:40 | XMS_ITS | Encounter Summary ---
Author Organization [facility] Address [facility] [place] [address] Care Team Providers Care Art Sales Consultant Name Role Phone Deedee Cruz MD Primary Care Provider [phone] Encounter Details Date Type Department Care Team (Late st Contact Info) Description 02/16/2022 Notes Only Radiology at [facility] [place] [address] aRmiro Azul PA [facility] [address] [place] [address] Social History Tobacco Use Types Packs/Day Years Used Date Smoking Tobacco: Never Smokeless Tobacco: Never Alcohol Use Standard Drinks/Week Comments Never 0 (1 standard drink = 0.6 oz pur e alcohol) Sex and Gender Information Value Date Recorded Sex Assigned at Not on file Gender Identity Not on file Sexual Orientation Not on file documented as of this encounter H&P Notes * Ramiro Azul PA - 02/16/2022 1:01 PM EST Interventional Radiology Focused Pre-procedure H&P: PCP: Deedee Cruz MD Procedure indication: Ovarian cancer, therapy complete, no evidence of recurrence IR workflow: Procedure request received through the Interventional Radiology eDH order queue. History of present illness: Per chart review, Dalia Mcfarlane is a 66 y.o. female who presents to Interventional Radiology to undergo removal of chest port in setting of ovarian cancer. This is a patient with ovarian cancer s/p all directed therapy, and without clinical or radiographic signs of recurrence. IR consulted for removal of chest port, placed Dec 2020. Remainder of patient's medical and surgical history, allergies, medications, and social/family history obtained below as previously outlined in patient's medical record. IR history: as above Assessment: 66 y.o. female with ovarian cancer without recurrence presenting to Interventional Radiology for chest port removal. Plan Planned procedure: Chest port explant Labs to be performed day of procedure: No labs Sedation: No Sedation Prophylactic antibiotic : None Contrast: No contrast Additional medications for procedure: Lidocaine Position: Supine Consent: Pending Medications to discontinue (and days held): None Labs: Lab Results Component Value Date HGB 11.2 (L) 04/26/2021 HCT 32.4 (L) 04/26/2021 WBC 4.6 04/26/2021 PLATELET 220 04/26/2021 BUN 4 (L) 04/26/2021 CREATININE 0.62 (L) 04/26/2021 ALBUMIN 4.0 04/26/2021 BILITOT 0.3 04/26/2021 AST 15 04/26/2021 ALT 10 04/26/2021 ALKPHOS 92 04/26/2021 Allergies: Fish containing products, Heparin analogues, Pork/porcine containing products, and Taxol[paclitaxel] Medications: Current Outpatient Medications on File Prior to Visit Medication Sig Dispense Refill ??? celecoxib (CeleBREX) 200 mg Capsule Take 200 mg by mouth 2 times daily as needed. ??? folic acid (Folvite) 1 mg Tablet Take 1,000 mcg by mouth daily. ??? sertraline (Zoloft) 50 mg Tablet Take 50 mg by mouth daily. ??? Banophen 25 mg Capsule Take 25 mg by mouth 3 times daily as needed. ??? amoxicillin-clavulanate (Augmentin) 875-125 mg Tablet Take 1 tablet by mouth every 12 hours. ??? cyanocobalamin, Vitamin B-12, (Vitamin B-12) 1,000 mcg Tablet Take 1,000 mcg by mouth daily. ??? [id number]-GQDC CB25 ORAL Take 750 mg by mouth 2 times daily. ??? lisinopriL (Zestril) 5 mg Tablet ??? amitriptyline (Elavil) 10 mg Tablet ??? lidocaine-prilocaine (EMLA) Cream Place on skin [...] TABLET BY MOUTH FOUR TIMES A DAY No current facility-administered medications on file prior to visit. Past medical/surgical history: Patient Active Problem List Diagnosis Code ??? Pelvic mass R19.00 ??? Ileus, postoperative K91.89, K56.7 ??? RLQ abdominal pain R10.31 ??? Ileus K56.7 ??? 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 Ovary cancer, left C56.2 Past Medical History: Diagnosis Date ??? Chronic pain in abdomen ??? High blood pressure controlled with medication ??? Motion sickness pt states car sickness ??? Ovary cancer, right 12/07/2020 Past Surgical History: Procedure Laterality Date ??? IR MEDIPORT PLACEMENT 12/15/2020 IR Mediport Placement 12/15/2020 Scottie Pantoja PA [facility] INTERVENTIONL RAD ??? PRO JAZIEL SALP-OOPH W/OMENTECT, ECTOR, RAD DISSECT N/A 11/19/2020 @HYSTERECTOMY, ECTOR, BSO, DEBULKING (WRVU 34.13) performed by Aletha Francois MD at [facility] MAIN OR ??? PRO REMOVAL, ABDOMEN LYMPH NODE, STAGING N/A 11/19/2020 @LYMPHADENECTOMY, LIMITED FOR STAGING, RETROPERITONEAL (WRVU 11.38) performed by Aletha Francois MD [facility] MAIN OR Social history and habits: Social History Tobacco Use ??? Smoking status: Never ??? Smokeless tobacco: Never Vaping Use ??? Vaping Use: Never used Substance Use Topics ??? Alcohol use: Never ??? Drug use: Never Significant family history: Family History Problem Relation Age of Onset ??? Cancer Mother 75 throat - smoker ??? Cancer Brother 25 testis Pertinent ROS: as per HPI Physical exam: Pending (to be performed in interventional radiology the day of procedure) ASA: Pending (to be assessed in interventional radiology the day of procedure) Mallampati class: Pending (to be assessed in interventional radiology the day of procedure) 02/16/2022 BAILEY Murray documented in this encounter Plan of Treatment Not on file documented as of this encounter Visit Diagnoses Not on filedocumented in this encounter Care Teams Art Sales Consultant Relationship Specialty Start Date End Date Deedee Cruz MD [address] [place] [address] PCP - General Oncology 02/15/22 documented as of this encounter
--- OUTSIDE RECORDS SUMMARY | 2024-01-02 18:40 | XMS_ITS | Encounter Summary ---
Author Organization [facility] [place] [address] Care Team Providers Care Sheeting Puller Name Role Phone Sue Espinosa Primary Care Provider [phone] Encounter Details Date Type Department Care Team (Late st Contact Info) Description 03/24/2021 Telephone Gynecology Oncology at [facility] [place] [address] Teri Torre RN Social History Tobacco Use Types Packs/Day [...] Telephone Encounter - Teri Torre RN - 03/24/2021 9:05 AM EST Called patient to discuss her concern of her CA125 rising to 14 from 10. Informed patient that thisis still well within the normal range and can vary , but, as long as it is still in the normal range and she is feeling okay, we are not concerned. Patient verbalized understanding and denies any further questions or concerns at this time. * Telephone Encounter - Teri Torre RN - 03/24/2021 9:04 AM EST ----- Message from Brunilda Ruiz RN sent at 03/24/2021 7:34 AM EST ----- Regarding: FW: Labs ----- Message ----- From: Dalia Mcfarlane Sent: 03/23/2021 2:13 PM EST To: [facility] Nurse Subject: Labs Doing much better. Not as weak today. Im eating well. I saw on my portal my CA125 jumped from 10 to 14. I???m very upset. documented in this encounter Plan of Treatment Not on file documented as of this encounter Visit Diagnoses Not on filedocumented in this encounter Care Teams Sheeting Puller Relationship Specialty Start Date End Date Sue Espinosa PA [address] [place] [id number] PCP - General Family Medicine 11/09/20 02/14/22 documented as of this encounter
--- OUTSIDE RECORDS SUMMARY | 2024-01-02 18:40 | XMS_ITS | Encounter Summary ---
Author Organization [facility] [place] [address] Care Team Providers Care Sporting Goods Sales Associate Name Role Phone Sue Espinosa Primary Care Provider Encounter Details Date Type Department Care Team (Late st Contact Info) Description 01/18/2021 Telephone Gynecology Oncology [facility] [place] [address] Teri Torre RN Social History Tobacco Use [...] Telephone Encounter - Teri Torre RN - 01/18/2021 9:04 AM EST Called patient to assess her pain/use of pain medications. Went to [facility]. Requested patient call back to clinic. documented in this encounter Plan of Treatment Not on file documented as of this encounter Visit Diagnoses Not on filedocumented in this encounter Care Teams Sporting Goods Sales Associate Relationship Specialty Start Date End Date Sue Espinosa PA [address] [place] [id number] PCP - General Family Medicine 11/09/20 02/14/22 documented as of this encounter
--- OUTSIDE RECORDS SUMMARY | 2024-01-02 18:41 | XMS_ITS | Encounter Summary ---
Author Organization [facility] [place] [address] Care Team Providers Care Resident Assistant Name Role Phone Sue Espinosa Primary Care Provider [phone] Encounter Details Date Type Department Care Team (Late st Contact Info) Description 12/07/2020 Orders Only [place] [address] Aletha Francois MD [facility] DR OBSTETRICS [place] [address] Social History Tobacco Use Types Packs/Day Years [...] on filedocumented in this encounter Care Teams Resident Assistant Relationship Specialty Start Date End Date Sue Espinosa PA [address] [place] [id number] PCP - General Family Medicine 11/09/20 02/14/22 documented as of this encounter
--- OUTSIDE RECORDS SUMMARY | 2024-01-02 18:41 | XMS_ITS | Encounter Summary ---
Author Organization [facility] Address [facility] [place] [address] Care Team Providers Care Software Systems Analyst Name Role Phone Sue Espinosa Primary Care Provider [phone] Encounter Details Date Type Department Care Team (Late st Contact Info) Description 11/23/2020 Telephone [place] [address] Nadine Joseph MD [facility] [place] [address] Social History Tobacco Use Types Packs/Day Years [...] encounter Miscellaneous Notes * Telephone Encounter - Nadine Joseph MD - 11/23/2020 8:33 AM EDT Patient called early this morning with acute nausea vomiting and abdominal pain. Advised her to go to her local emergency room which was [facility]. She was noted not to have moved her bowels since prior to surgery. Upon arrival there she was found to have no elevated white count, no fever, and exquisite right lower quadrant pain. CT imaging showed some residual gas related to her recent surgery (status post ECTOR/BSO and staging on 11/19). Plan was for some hydration, pain medication, possible enemas to get her bowels moving and reevaluation in a few hours when I was able to view the images. Upon review of the images, she appears to be obstipated. Bladder wall is markedly thickened but urinalysis was apparently normal and did not reflex to culture at the outside hospital. Given her exquisite pain of unclear etiology, will transfer her here for further management. documented in this encounter Plan of Treatment Not on file documented as of this encounter Visit Diagnoses Not on filedocumented in this encounter Care Teams Software Systems Analyst Relationship Specialty Start Date End Date Sue Espinosa PA [address] [place] [id number] PCP - General Family Medicine 11/09/20 02/14/22 documented as of this encounter
--- OUTSIDE RECORDS SUMMARY | 2024-01-02 18:41 | XMS_ITS | Encounter Summary ---
Author Organization [place] [address] Care Team Providers Care Wireless Operator Name Role Phone Sue Espinosa Primary Care Provider [phone] Reason for Visit * Reason Comments Chemotherapy Taxol/Carbo * Treatment/Therapy Plan Authorization (Routine) - Closed Specialty Diagnoses / Procedures Referred By Ryan turk Referred To Contact Hematology and Oncology Diagnoses Ovary cancer, right Ovary cancer, left Aletha Francois MD [facility] [address] OBSTETRICS [place] [address] [address] Referral ID Status Reason Start Date Expiration Date Visits Re quested Visits Authorized [id number] Closed 12/07/2020 12/07/2021 99 99 Encounter Details Date Type Department Care Team (Latest Contact Info) Description 12/17/2020 7:50 AM EDT - 12/17/2020 11:59 PM EDT Hospital Encounter [place] [address] Ovary cancer, left Discharge Disposition: Home Social [...] Sign Reading Time Taken Comments Blood Pressure 137/87 12/17/2020 1:25 PM EDT Pulse 97 12/17/2020 1:25 PM EDT Temperature 36.4 ??C (97.5 ??F) 12/17/2020 1:25 PM ED T Respiratory Rate 13 12/17/2020 11:31 AM EDT Oxygen Saturation 94% 12/17/2020 1:25 PM EDT Inhaled Oxygen Concentration - - Weight - - Height - - Body Mass Index - - documented in this encounter Discharge Instructions * Patient Instructions* Mathew Felix RN - 12/17/2020 5:41 PM EDT Remember the 4 W's WATER Drink your water WASH Wash your hands WALK Move as tolerated WATCH Watch for a fever! It was a pleasure taking care of you today! Mathew documented in this encounter Medications at Time [...] BY MOUTH FOUR TIMES A DAY 11/03/2020 HYDROcodone-acetamino phen ([place]) 10-325 mg Tablet 12/10/2020 02/18/2021 UNABLE TO FIND Glutamine: Please take 15 grams twice daily for 4 days following chemotherapy treatments. Vitamin B6 (Pyridoxine): Take 50 mg by mouth two times per day (or 100 mg once daily) continuously throughout your chemotherapy treatment with Paclitaxel. Grntk-Toewal-Qidj (ALA): Take 600 mg by mouth daily. [...] as needed for motion sickness 11/23/2020 10/18/2021 potassium chloride (K-Tab) 20 mEq Tablet Sustained Release Take 1 tablet by mouth daily. 11/06/2020 01/28/2021 senna-docusate (Pericolace) 8.6-50 mg Tablet Take 1 tablet by mouth 2 times daily as needed for Constipation. Please take this if you are using oxycodone 60 tablet 11/26/2020 10/18/2021 ibuprofen (Advil) 600 mg Tablet Take 1 tablet by mouth every 6 hours. 30 tablet 12 11/21/2020 01/28/2021 dimenhyDRINATE (Dramamine) 50 mg Tablet Take 50 mg by mouth as needed. Pt does take for long car rides maybe 2x per year 10/18/2021 documented as of this encounter Progress Notes * Mathew Felix RN - 12/17/2020 10:24 AM EDT Patient Name: Dalia Mcfarlane Patient Age: 65 y.o. Birthdate: 1955 Admit date: 12/17/2020 Attending Physician: No att. providers found TIME TREATMENT STARTED: 944 TIME TREATMENT ENDED: 1744 Dalia Mcfarlane, 65 y.o. female with diagnosis of 1. 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 PROTOCOL: NA CYCLE: 1 WEEK: NA DAY: 1 S: Pt. offers no complaints at this time upon arrival to Infusion. Taxol started at half rate (90 cc) for 15 minutes (22 ml) per order from Dr Francois. 1120- Patient developed facial flushing, chest discomfort, SOB briefly. Taxol stopped. 14.6 cc infused. HSR protocol initiated. Benadryl Pepcid and Dex administered. See flow sheet for VS. Dr Francois notified. Will monitor for 30 minutes and titrate restart per Dr Francois. Symptoms resolving and had resolved by 1130. 1205- Taxol restart @ quarter rate in 15 minute increments- (45 cc for 11ml) then (90 cc x 22ml) then full rate 184 cc/hr. 1325- Patient awoke with back pain and nausea. No other symptoms noted. Taxol stopped. VSS. Patientstates she normally has back pain, but that this back pain is much more intense. Dr Francois notified and verbal order given for 6 mg Decadron IVP and Compazine given from [place] plan for Nausea. Good relief noted, symptoms resolved after about 15 minutes. Will observe for 30 minutes and attempt restart . Patient moved to bed to help alleviate back discomfort. 1420 Restart at half rate for 30 minutes (90 cc x 45 ml) then increased to full rate 184 cc/hr. Patient completed Taxol infusion @ 1650 without further issues. Patient discharged to home with . AVS given to patient. O: Patient's Chemotherapy orders independently verified for correct drug name, route and dosage perpatient's height, weight and BSA by Mathew Felix RN and Pharmacist. REACTIONS (DESCRIPTION, TIME, INTERVENTION AND EFFECTIVENESS) See above. Eventually completed treatment. A: Pt. Tolerated treatment well. Dalia Mcfarlane confirms that all questions and issues have been addressed. Fluid intake, exercise, watching for a fever and handwashing and how to take nausea meds discussed with patient. P: Return to clinic per routine. documented in this encounter Miscellaneous Notes * Addendum Note - Mathew Felix RN - 12/17/2020 6:19 PM EDTEncounter addended by: Mathew Felix RN on: 12/17/2020 6:19 PM Actions taken: Allergies modified, Clinical Note Signed documented in this encounter Plan of Treatment Not on file documented as of this encounter Visit Diagnoses Diagnosis Ovary cancer, left documented in this encounter Administered Medications Inactive Administered Medications - up to 3 most recent administrations Medication Order MAR Action Action Date Dose Rate Site aprepitant (CINVANTI) injection Emul 130 mg 130 mg, Intravenous, Administer over 2 Minutes, ONCE, 1 dose, On Ange 12/17/20 at 0930, Alternative administration of IV push over 2 minutes is a recommendation from the planning official. Administer prior to chemotherapy., Routine Given 12/17/2020 10:19 AM EDT 130 mg CARBOplatin (Paraplatin) 530 mg in dextrose 5% 303 mL infusion 530 mg (rounded from 529.5 mg, Target AUC = 5), Intravenous, ONCE, 1 dose, On Ange 12/17/20 at 1330, Administer over 30 Minutes, Warning Vesicant/Irritant Medication New Bag 12/17/2020 4:54 PM EDT 530 mg 606 mL/hr dexamethasone (Decadron) injection 4 mg 4 mg, Intravenous, ONCE, 1 dose, On Ange 12/17/20 at 1145 Given 12/17/2020 1:34 PM EDT 6 mg Given 12/17/2020 11:25 AM EDT 4 mg dexamethasone (PF) (Decadron) (10 mg/mL) injection 10 mg 10 mg, Intravenous, ONCE, 1 dose, On Ange 12/17/20 at 0930, Administer 30 minutes prior to PACLitaxel Given 12/17/2020 10:11 AM EDT 10 mg diphenhydrAMINE (Benadryl) (50 mg/mL) injection 25 mg 25 mg, Intravenous, ONCE PRN, 2 doses, Starting on Ange 12/17/20 at 1122, Until Mon12/18/20 at 0435, Itching, for itching, hives and flushing., IV push over 1 minute once. May repeat once after 10 minutes., Routine Given 12/17/2020 11:21 AM EDT 25 mg diphenhydrAMINE (Benadryl) capsule 50 mg 50 mg, Oral, ONCE, 1 dose, On Ange 12/17/20 at 0930, Administer 30 minutes prior to PACLitaxel, Routine Given 12/17/2020 10:08 AM EDT 50 mg famotidine (Pepcid) (10 mg/mL) injection 20 mg 20 mg, Intravenous, ONCE, 1 dose, On Ange 12/17/20 at 0930, Administer 30 minutes prior to PACLitaxel Given 12/17/2020 10:16 AM EDT 20 mg famotidine (Pepcid) (10 mg/mL) injection 20 mg 20 mg, Intravenous, ONCE, 1 dose, On Ange 12/17/20 at 1145, IV push over 1 minute once., Routine Given 12/17/2020 11:23 AM EDT 20 mg PACLitaxeL (Taxol) 320 mg in sodium chloride 0.9% Non-PVC 553.3333 mL infusion 320 mg (rounded from 320.25 mg = 175 mg/m2/dose ? 1.83 m2 Treatment Plan BSA from Recorded weight), Intravenous, ONCE, 1 dose, On Ange 12/17/20 at 1030, Administer over 3 Hours, Warning Vesicant/Irritant Medication Restarted 12/17/2020 2:22 PM EDT 184.4 mL/hr Restarted 12/17/2020 12:05 PM EDT 184.4 mL/hr New Bag 12/17/2020 11:02 AM EDT 320 mg 184.4 mL/hr palonosetron (Aloxi) (0.05 mg/mL) injection 0.25 mg 0.25 mg, Intravenous, ONCE, 1 dose, On Ange 12/17/20 at 0930, Administer over 30 seconds., Routine Given 12/17/2020 10:18 AM EDT 0.25 mg prochlorperazine (Compazine) (5 mg/mL) injection 10 mg 10 mg, Intravenous, EVERY 6 HOURS PRN, Starting on Ange 12/17/20 at 1326, Until Mon12/18/20 at 0435, Nausea, Vomiting, If multiple antiemetics are ordered, use in the following sequence: Ondansetron>Prochlorperazine or Promethazine>Lorazepam>Metoclopra mide, Routine Given 12/17/2020 1:35 PM EDT 10 mg sodium chloride 0.9% infusion 75 mL/hr, Intravenous, CONTINUOUS, Starting on Ange 12/17/20 at 0930, Until Ange 12/17/20 at 2129 New Bag 12/17/2020 10:05 AM EDT 75 mL/hr 75 mL/hr sodium chloride 0.9% infusion 500 mL, Intravenous, CONTINUOUS, Starting on Ange 12/17/20 at 1145, Until Mon12/18/20 at 0435, Ensure patent IV access to keep vein open New Bag 12/17/2020 11:22 AM EDT 500 mLs documented in this encounter Care Teams Wireless Operator Relationship Specialty Start Date End Date Sue Espinosa PA [address] [place] [id number] PCP - General Family Medicine 11/09/20 02/14/22 documented as of this encounter
--- OUTSIDE RECORDS SUMMARY | 2024-01-02 18:41 | XMS_ITS | Encounter Summary ---
[facility] [place] [address] Care Team Providers Care Ripsaw Grader Name Role Phone Sue Espinosa Primary Care Provider [phone] Encounter Details Date Type Department Care Team (Late st Contact Info) Description 12/18/2020 Notes Only [place] [address] Evelyn Hernandez APRN [facility] OBSTETRICS & [place] [address] Social History Tobacco Use Types Packs/Day Years [...] Progress Notes * Evelyn Hernandez APRN - 12/18/2020 10:39 AM EDT Division [place] [address] This travel writer spoke with Dr. Aletha Francois this morning regarding patient's hypersensitivity reaction topaclitaxel yesterday. Dr. Francois advises for patient to be premedicated with dexamethasone 20 mg 12 and 6 hours prior to chemotherapy and subsequent cycles. This travel writer spoke with Dalia and provided education on the premedication. She was instructed thatthis will cause her to feel jittery and sleepless. She was instructed that she can use lorazepam asneeded for anxiety. Otherwise, Dalia denied any concerns at this time. Plan: Prescription written for dexamethasone 20 mg 12 and 6 hours prior to chemotherapy. Scheduling team is sent a message with a reminder to please schedule chemotherapy for her next cycles on 01/07/2021, 01/28/2021, and 02/18/[address] Francois prior to her chemo. Evelyn Hernandez APRN documented in this encounter Plan of Treatment Not on file documented as of this encounter Visit Diagnoses Not on filedocumented in this encounter Care Teams Ripsaw Grader Relationship Specialty Start Date End Date Sue Espinosa PA [address] [place] [id number] PCP - General Family Medicine 11/09/20 02/14/22 documented as of this encounter
--- OUTSIDE RECORDS SUMMARY | 2024-01-02 18:41 | XMS_ITS | Encounter Summary ---
Author Organization [facility] [place] [address] Care Team Providers Care Access Director Name Role Phone Sue Espinosa Primary Care Provider [phone] Reason for Visit * Reason Comments Chemotherapy * Treatment/Therapy Plan Authorization (Routine) - Closed Specialty Diagnoses / Procedures Referred By Ryan t Referred To Contact Hematology and Oncology Diagnoses Ovary cancer, right Ovary cancer, left Aletha Francois MD [facility] [address] [place] [address] [facility] [address] [place] [address] Referral ID Status Reason Start Date Expiration Date Visits Re quested Visits Authorized [id number] Closed 12/07/2020 12/07/2021 99 99 Encounter Details Date Type Department Care Team (Latest Contact Info) Description 01/07/2021 7:45 AM EDT - 01/07/2021 11:59 PM EDT Hospital Encounter [place]ematology [place] [id number] Ovary cancer, right; Ovary cancer, left Discharge [...] Sign Reading Time Taken Comments Blood Pressure 157/87 01/07/2021 8:51 AM EDT Pulse 119 01/07/2021 8:51 AM EDT Temperature 36.5 ??C (97.7 ??F) 01/07/2021 8:51 AM ED T Respiratory Rate 16 01/07/2021 8:51 AM EDT Oxygen Saturation 95% 01/07/2021 8:51 AM EDT Inhaled Oxygen Concentration - - Weight 70.1 kg (154 lb 9.6 oz) 01/07/2021 8:37 A M EDT Height 163.8 cm (5' 4.5) 01/07/2021 8:37 AM EDT Body Mass Index 26.13 01/07/2021 8:37 AM EDT documented in this encounter Medications at Time [...] 60 tablet 1 12/18/2020 10/18/2021 HYDROcodone-acetamino phen ([place]) 10-325 mg Tablet 12/10/2020 02/18/2021 UNABLE TO FIND Glutamine: Please take 15 grams twice daily for 4 days following chemotherapy treatments. Vitamin B6 (Pyridoxine): Take 50 mg by mouth two times per day (or 100 mg once daily) continuously throughout your chemotherapy treatment with Paclitaxel. Deanv-Nlbbta-Ahpq (ALA): Take 600 mg by mouth daily. [...] as of this encounter Progress Notes * Ann-Marie Fox RN - 01/07/2021 9:37 AM EDT Patient Name: Dalia Mcfarlane Patient Age: 65 y.o. Birthdate: 1955 Admit date: 01/07/2021 Attending Physician: No att. providers found TIME TREATMENT STARTED: 847 TIME TREATMENT ENDED: 1521 Dalia Mcfarlane, 65 y.o. female with diagnosis of ovarian cancer is here for chemotherapy infusion of Paclitaxel and Carboplatin with placement of Onpro device. PROTOCOL: n/a CYCLE: 2 WEEK: n/a DAY: 1 S: Pt. offers no complaints at this time. O: Chemotherapy orders independently verified for correct drug name, route and dosage per patient'sheight, weight and BSA by Ann-Marie Fox, YVES and onsite pharmacist REACTIONS (DESCRIPTION, TIME, INTERVENTION AND EFFECTIVENESS) none A: Pt. Tolerated treatment well. Dalia M Denys confirms that all questions and issues have been addressed. Pt. Reported taking dexamethasone at home last fiorella and early this AM, prior to treatment today. Pt. Requested pain medication prior to discharge, given to patient for overall pain though mostly to hips and thighs. P: Return to clinic as advised. documented in this encounter Plan of Treatment [...] 2 Minutes, ONCE, 1 dose, On Ange 01/07/21 at 0900, Alternative administration of IV push over 2 minutes is a recommendation from the dermatology procedural physician. Administer prior to chemotherapy., Routine Given 01/07/2021 9:33 AM EDT 130 mg CARBOplatin (Paraplatin) 453 mg in dextrose 5% 295.3 mL infusion 453 mg (Target AUC = 5), Intravenous, ONCE, 1 dose, On Ange 01/07/21 at 1000, Administer over 30 Minutes, Warning Vesicant/Irritant Medication New Bag 01/07/2021 1:57 PM EDT 453 mg 590.6 mL/hr dexamethasone (PF) (Decadron) (10 mg/mL) injection 10 mg 10 mg, Intravenous, ONCE, 1 dose, On Ange 01/07/21 at 0900, Administer 30 minutes prior to PACLitaxel Given 01/07/2021 9:29 AM EDT 10 mg diphenhydrAMINE (Benadryl) capsule 50 mg 50 mg, Oral, ONCE, 1 dose, On Ange 01/07/21 at 0900, Administer 30 minutes prior to PACLitaxel, Routine Given 01/07/2021 9:23 AM EDT 50 mg famotidine (Pepcid) (10 mg/mL) injection 20 mg 20 mg, Intravenous, ONCE, 1 dose, On Ange 01/07/21 at 0900, Administer 30 minutes prior to PACLitaxel Given 01/07/2021 9:26 AM EDT 20 mg HYDROcodone-acetaminophen ([place]) 5-325 mg per tablet 2 tablet 2 tablet, Oral, ONCE, 1 dose, On Ange 01/07/21 at 1500, Maximum dose of acetaminophen is 4000 mg from all sources in 24 hours. , STAT Given 01/07/2021 3:19 PM EDT 2 tablets PACLitaxeL (Taxol) 320 mg in sodium chloride 0.9% Non-PVC 553.3333 mL infusion 320 mg (rounded from 320.25 mg = 175 mg/m2/dose ? 1.83 m2 Treatment Plan BSA from Recorded weight), Intravenous, ONCE, 1 dose, On Ange 01/07/21 at 1000, Administer over 3 Hours, Warning Vesicant/Irritant Medication Initiate at half rate (92.2 mL/hr) for 30 min, then increase to full rate (184.4 mL/hr) Rate/Dose Change 01/07/2021 10:56 AM EDT 184.4 mL/hr New Bag 01/07/2021 10:15 AM EDT 320 mg 184.4 mL/hr palonosetron (Aloxi) (0.05 mg/mL) injection 0.25 mg 0.25 mg, Intravenous, ONCE, 1 dose, On [facility] 01/07/21 at 0900, Administer over 30 seconds., Routine Given 01/07/2021 9:26 AM EDT 0.25 mg pegfilgrastim (Neulasta Onpro) (6 mg/0.6 mL) injection kit 6 mg 6 mg, Subcutaneous, ONCE, 1 dose, On [facility] 01/07/21 at 0900, Allow the prefilled syringe co-packaged with the on-body injector to reach room temperature at least 30 minutes prior to administration., Routine, This agent is restricted to outpatient use. Is this drug being given as an outpatient? Yes Given 01/07/2021 2:47 PM EDT 6 mg Right Arm sodium chloride 0.9 % (flush) (BD PosiFlush Normal Saline 0.9) flush 5-20 mL 5-20 mL, Intravenous, EVERY 1 MIN PRN, Starting on Ange 01/07/21 at 0900, Until Mon01/08/21 at 0435, Line Care, Flush pertains to all indwelling lines. Flush per protocol found in the job aid using the link provided on this medication record. Refer to Intravenous (IV) Job Aid: Adult Flushing & Catheter Care (0313) job aid for additional information regarding guidelines and administration., Routine Given 01/07/2021 2:36 PM EDT 20 mLs sodium chloride 0.9% infusion 75 mL/hr, Intravenous, CONTINUOUS, Starting on Ange 01/07/21 at 0900, Until Mon01/08/21 at 0435 New Bag 01/07/2021 9:24 AM EDT 75 mL/hr 75 mL/hr documented in this encounter Care Teams Access Director Relationship Specialty Start Date End Date Sue Espinosa PA [address] [place] [id number] PCP - General Family Medicine 11/09/20 02/14/22 documented as of this encounter
--- OUTSIDE RECORDS SUMMARY | 2024-01-02 18:41 | XMS_ITS | Encounter Summary ---
Author Organization [facility] Address [facility] [place] [address] Care Team Providers Care Machine Learning Intern Name Role Phone Sue Espinosa Primary Care Provider [phone] Encounter Details Date Type Department Care Team (Late st Contact Info) Description 11/23/2020 4:30 PM EDT Ancillary Procedure Radiology Library at [facility] [place] [id number] Aletha Francois MD [facility] OBSTETRICS [place] [address] Social History Tobacco Use Types Packs/Day Years [...] Procedure Name Priority Date/Time Associated Diagnosis Comments REQUEST FOR 2ND READ CT ABDOMEN AND PELVIS Routine 11/23/2020 4:25 PM EDT documented in this encounter Results * Request For 2nd Read CT Abdomen & Pelvis (11/23/2020 4:25 PM EDT) Anatomical Region Laterality Modality Abdomen, Pelvis SO Impressions 11/23/2020 4:51 PM EDT 1. ??Prominent but nondilated segments of proximal small bowel with smooth transition to distal nondistended bowel segments, likely related to an ileus. Adjacent inflammatory changes within the proximal small bowel, likely related to a reactive enteritis. ??A developing small bowel obstruction is not excluded. 2. ??Lentiform air and fluid containing collection along the ventral margin of the liver may be related to postoperative change; superimposed abscess is not excluded. 3. ??Few locules of pneumoperitoneum, likely related to recent surgical intervention. 4. ??Postsurgical changes along the bilateral pelvic sidewalls. ??3.9 x 2.5 cm heterogeneous collection along the right pelvic sidewall, likely related to a postoperative hematoma. ??No active extravasation. 5. ??Underdistended urinary bladder with adjacent inflammatory changes, likely related to postoperative change. ??Superimposed cystitis is not excluded. 6. ??Locule of air within the urinary bladder, likely related to recent instrumentation. Thank you for letting us participate in the care of this patient. ??If you are a health care provider and have any questions regarding this report, please contact the number below. ??For patients who have questions please contact the health manager managed care that requested your imaging first. ? Electronically signed by: Arsen Rodriguez DO, [facility] ([phone]), at 11/23/2020 4:51 PM Narrative 11/23/2020 4:51 PM EDT EXAMINATION: * ??REQUEST FOR 2ND READ CT ABDOMEN AND PELVIS * ??CT OF THE ABDOMEN AND PELVIS WITH INTRAVENOUS CONTRAST. CLINICAL HISTORY: 65-year-old female postoperative day 4 status post exploratory laparotomy and total abdominal hysterectomy, bilateral salpingo-oophorectomy and bilateral pelvic and periaortic lymph node dissection. ??Discharge to November 21, 2020. ??Presented to outside hospital with right lower quadrant pain and nausea. ??Request for second interpretation of outside imaging study. ?? * ??Sending Institution [facility] * ??Date of exam [id number] * ??I believe a reinterpretation of this exam may alter care of Patient. Yes TECHNIQUE: CT of the abdomen and pelvis with intravenous contrast was performed at [facility] on November 23, 2020. ??Helical CT images of the abdomen and pelvis were obtained with intravenous contrast. ??Per report, the patient received 100 mL Omnipaque 350 intravenous contrast. ??Oral contrast was not administered. COMPARISON: Comparison is made to outside CT of the abdomen and pelvis dated November 06, 2020. FINDINGS: Bread Dumper Images: Noncontributory. Lower chest: There is a curvilinear band of atelectasis within the right lower lobe. Liver: Along the ventral and superior margin of the liver is a fluid and air containing lentiform collection measuring approximately 10.8 x 1.9 cm in maximal dimension. Bile ducts: Normal. Gallbladder: Normal. Pancreas: Normal. Spleen: There is trace perisplenic ascites. ??The spleen enhances and images normally. Adrenals: Normal. Kidneys: Normal. Urinary Bladder: The urinary bladder is under distended. ??There is a locule of air within the urinary bladder. ??There is diffuse bladder wall thickening. There is perivesicular fat stranding. Vasculature: The aorta is normal in course and caliber. ??There is mild atherosclerotic calcification of the abdominal aorta and its branch vessels. The inferior vena cava is normal in course and caliber. ??The superior mesenteric, splenic, and portal veins are patent. ??The hepatic veins are patent. Lymph Nodes: There are no pathologically enlarged lymph nodes. Bowel: Limited evaluation the distal esophagus is unremarkable. ??The stomach is under distended. ??The duodenum is normal in course and caliber. ??There are prominent segments of small bowel in the left hemiabdomen, measuring up to 2.6 cm in diameter with pseudocysts transition to nondilated segments more distally. There is no focal transition point. ??There is adjacent mesenteric edema and perienteric fat stranding surrounding the segments in the left upper quadrant. The ileocecal valve is within normal limits. ??There is a moderate volume of stool throughout the course of the large bowel. Peritoneum and mesentery: There are a few locules of pneumoperitoneum. ??There are postsurgical changes along the pelvic sidewalls bilaterally. ??There are locules of air within the extraperitoneal space along the left pelvic sidewall is well located more inferiorly ventrally. ??Along the right pelvic sidewall there is a 3.9 x 2.5 cm heterogeneous collection with dependent hyperattenuating material. ??There is no active extravasation. ??There is edema within the presacral space. Abdominal wall: There is a vertically oriented midline incision. ??There are a few locules of air within the abdominal wall, particularly inferiorly within the left lower quadrant. Reproductive organs: The uterus is surgically absent. Osseous structures: There is a mild convex left scoliosis of the lumbar spine. There are degenerative changes of visualized spine with endplate sclerosis and osteophyte formation. 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 ??There are no suspicious osseous lesions. Procedure Note Arsen Rodriguez, DO - 11/23/2020 EXAMINATION: * REQUEST FOR 2ND READ CT ABDOMEN AND PELVIS * CT OF THE ABDOMEN AND PELVIS WITH INTRAVENOUS CONTRAST. CLINICAL HISTORY: 65-year-old female postoperative day 4 status postexploratory laparotomy and total abdominal hysterectomy, bilateralsalpingo-oophorectomy and bilateral pelvic and periaortic lymph node dissection. Discharge toSept2020. Presented to outside hospital with right lower quadrant painand nausea. Request for second interpretation of outside imaging study. * Sending Institution [facility] * Date of exam [id number] * I believe a reinterpretation of this exam may alter care of Patient.Yes TECHNIQUE: CT of the abdomen and pelvis with intravenous contrast wasperformed at [facility] on November 23, 2020. Helical CTimages of the abdomen and pelvis were obtained with intravenous contrast. Perreport, the patient received 100 mL Omnipaque 350 intravenous contrast. Oralcontrast was not administered. COMPARISON: Comparison is made to outside CT of the abdomen and pelvisdated November 06, 2020. FINDINGS: Bread Dumper Images: Noncontributory. Lower chest: There is a curvilinear band of atelectasis within the rightlower lobe. Liver: Along the ventral and superior margin of the liver is a fluid andair containing lentiform collection measuring approximately 10.8 x 1.9 cm inmaximal dimension. Bile ducts: Normal. Gallbladder: Normal. Pancreas: Normal. Spleen: There is trace perisplenic ascites. The spleen enhances andimages normally. Adrenals: Normal. Kidneys: Normal. Urinary Bladder: The urinary bladder is under distended. There is alocule of air within the urinary bladder. There is diffuse bladder wall thickening. There is perivesicular fat stranding. Vasculature: The aorta is normal in course and caliber. There is mild atherosclerotic calcification of the abdominal aorta and its branchvessels. The inferior vena cava is normal in course and caliber. The superior mesenteric, splenic, and portal veins are patent. The hepatic veins arepatent. Lymph Nodes: There are no pathologically enlarged lymph nodes. Bowel: Limited evaluation the distal esophagus is unremarkable. Thestomach is under distended. The duodenum is normal in course and caliber. Thereare prominent segments of small bowel in the left hemiabdomen, measuring up to2.6 cm in diameter with pseudocysts transition to nondilated segments moredistally. There is no focal transition point. There is adjacent mesenteric edemaand perienteric fat stranding surrounding the segments in the left upperquadrant. The ileocecal valve is within normal limits. There is a moderate volumeof stool throughout the course of the large bowel. Peritoneum and mesentery: There are a few locules of pneumoperitoneum.There are postsurgical changes along the pelvic sidewalls bilaterally. Thereare locules of air within the extraperitoneal space along the left pelvicsidewall is well located more inferiorly ventrally. Along the right pelvicsidewall there is a 3.9 x 2.5 cm heterogeneous collection with dependenthyperattenuating material. There is no active extravasation. There is edema within the presacral space. Abdominal wall: There is a vertically oriented midline incision. Thereare a few locules of air within the abdominal wall, particularly inferiorlywithin the left lower quadrant. Reproductive organs: The uterus is surgically absent. Osseous structures: There is a mild convex left scoliosis of the lumbarspine. There are degenerative changes of visualized spine with endplate sclerosisand osteophyte formation. There is a Bertha's disease configuration to thelumbar spine. There are no suspicious osseous lesions. IMPRESSION 1. Prominent but nondilated segments of proximal small bowel withsmooth transition to distal nondistended bowel segments, likely related to anileus. Adjacent inflammatory changes within the proximal small bowel, likelyrelated to a reactive enteritis. A developing small bowel obstruction is notexcluded. 2. Lentiform air and fluid containing collection along the ventral marginof the liver may be related to postoperative change; superimposed abscess isnot excluded. 3. Few locules of pneumoperitoneum, likely related to recent surgical intervention. 4. Postsurgical changes along the bilateral pelvic sidewalls. 3.9 x 2.5cm heterogeneous collection along the right pelvic sidewall, likely relatedto a postoperative hematoma. No active extravasation. 5. Underdistended urinary bladder with adjacent inflammatory changes,likely related to postoperative change. Superimposed cystitis is not excluded. 6. Locule of air within the urinary bladder, likely related to recent instrumentation. Thank you for letting us participate in the care of this patient. If youare a health care provider and have any questions regarding this report,please contact the number below. For patients who have questions please contactthe health manager managed care that requested your imaging first. Electronically signed by: Arsen Rodriguez DO, [facility]([phone]), at 11/23/2020 4:51 PM Aletha Francois MD IMG OUTSIDE INTERPRE TATION ORDERABLES documented in this encounter Visit Diagnoses Not on filedocumented in this encounter Care Teams Machine Learning Intern Relationship Specialty Start Date End Date Sue Espinosa PA [address] [address] PCP - General Family Medicine 11/09/20 02/14/22 documented as of this encounter
--- OUTSIDE RECORDS SUMMARY | 2024-01-02 18:41 | XMS_ITS | Encounter Summary ---
Author Organization [facility] Address [facility] [place] [address] Care Team Providers Care Glaze Supervisor Name Role Phone Sue Espinosa Primary Care Provider [phone] Reason for Visit * Reason Comments Post Hospital Discharge Hospital Check - Post op Encounter Details Date Type Department Care Team (Late st Contact Info) Description 12/03/2020 9:00 AM EDT Office Visit [place] [address] Aletha Francois MD [facility] OBSTETRICS [place] [address] Post-operative state; Left ovarian epithelial cancer; S/P ECTOR-BSO (total abdominal hysterectomy and bilateral salpingo-oophorectomy ) Social History Tobacco Use Types Packs/Day Years [...] Sign Reading Time Taken Comments Blood Pressure 147/73 12/03/2020 8:49 AM EDT Pulse 123 12/03/2020 8:49 AM EDT Temperature 36.9 ??C (98.5 ??F) 12/03/2020 8:49 AM ED T Respiratory Rate 16 12/03/2020 8:49 AM EDT Oxygen Saturation 98% 12/03/2020 8:49 AM EDT Inhaled Oxygen Concentration - - Weight 73.3 kg (161 lb 9.6 oz) 12/03/2020 8:49 A M EDT Height 165.1 cm (5' 5) 12/03/2020 8:49 AM EDT Body Mass Index 26.89 12/03/2020 8:49 AM EDT documented in this encounter Progress Notes * Aletha Francois MD - 12/03/2020 9:00 AM EDT Images from the original note were not included. GYNECOLOGIC ONCOLOGY OUT PATIENT FOLLOW UP Date: 12/03/2020 Name: Dalia Mcfarlane : 1955 CSN: [id number] Patient Care Team: Patient Care Team: Sue Espinosa PA as PCP - General (Family Medicine) CHIEF COMPLAINT Left ovarian cancer Post op HISTORY OF PRESENT ILLNESS Dalia Mcfarlane is a 65 y.o. old para 0 woman, seen at the request of Faisal OLIVO in consultation for recommendations evaluation and assessment regarding her primary diagnosis of pelvic mass. Patient endorses acute onset abdominal pain and presented to ED [facility] 11/06/20 associated with some nausea. Patient reports prior episode 10 years earlier and diagnosis with UTI and treated with antibiotic. Patient had imaging and puga catheter placed and d/c home. Patient has not had pelvic exam or weir fisher care in many years, no issues. Has regular provider. Here with today. Last visit: surgery 11/19/20 Interval history 1. Pain medications used oxy after surgery off for 2 days, using Tylenol for pain not helping much,patient would like refill oxy Pain worse at night Tried motrin but sensitive stomach and unable to tale NSAIDS Bowel movement every day sometimes twice day No bleeding for first 5 days spotting only Eating well great appetite Using lovenox shots 2 left Doing laundry, knitting and moving well at [...] of my consultation today with the patient. [facility] 11/19/20 Left ovary: ? High-grade carcinoma. - [facility] 11/19/20 15:29 TVS 11/06/20 [facility] N CT ABD/PELVIS [facility] ED 11/06/20 Labs Creatinine 1.0 Normal LFT Total protein 7.9. 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 CURRENT MEDICATIONS Current Outpatient Medications Medication Sig Dispense Refill ??? diphenhydrAMINE (Benadryl) 50 mg Capsule Take 50 mg by mouth as needed. Take 50 mg as needed for motion sickness ??? ondansetron (Zofran) 4 mg Tablet Take 1 tablet by mouth every 8 hours as needed. ??? potassium chloride (K-Tab) 20 mEq Tablet Sustained Release Take 1 tablet by mouth daily. ??? oxyCODONE (Roxicodone) 5 mg Tablet Take 1 tablet by mouth every 4 hours as needed for Pain (breakthrough pain). 15 tablet 0 ??? senna-docusate (Pericolace) 8.6-50 mg Tablet Take 1 tablet by mouth 2 times daily as needed forConstipation. Please take this if you are using oxycodone 60 tablet 0 ??? polyethylene glycoL (Miralax) 17 gram/dose Powder Take 17 g by mouth daily as needed. 255 g 0 ??? acetaminophen (Tylenol) 325 mg Tablet Take 2 tablets by mouth every 6 hours. 30 tablet 1 ??? enoxaparin (Lovenox) 40 mg/0.4 mL Syringe Inject 0.4 mLs subcutaneously nightly for 12 days. 4.8 mL 0 ??? gabapentin (NEURONTIN) 600 mg Tablet TAKE ONE TABLET BY MOUTH FOUR TIMES A DAY ??? lisinopriL (Zestril) 5 mg Tablet TAKE ONE TABLET BY MOUTH EVERY DAY ??? dimenhyDRINATE (Dramamine) 50 mg Tablet Take 50 mg by mouth as needed. Pt does take for long car rides maybe 2x per year No current facility-administered medications for this visit. PHYSICAL EXAM BP 147/73 (Patient Position: Sitting) Pulse (!) 123 Temp 36.9 ??C (98.5 ??F) (Temporal) Resp 16 Ht 165.1 cm (5' 5) Wt 73.3 kg (161 lb 9.6 oz) SpO2 98% BMI 26.89 kg/m?? Exam: GENERAL: Well-appearing, female in no acute distress. HENT: Moist mucous membranes. No adenopathy. NECK: NO masses of thyroid or assymetry. FREDDIE SURVEY: NO masses or asymmetry or tenderness. CARDIOVASCULAR: Chest expands symmetrically without any labored breathing. BREASTS: No masses, adenopathy or asymmetry AXILLA: No masses or adnoepathy ABDOMEN: Soft, nontender, nondistended. No HSM, tenderness or ascites. No masses or rebound. EXTREMITIES: Warm, well perfused. No edema. SKIN: NO rashes or excoriations NEURO: CN 2-12 grossly intact and the patient responds to questions appropriately in [place]. PELVIC EXAM: Vulva: Normal female external genitalia. Normal urethra. Vagina: Normal pink mucosa. No discharge. Well suspended, intact. Cervix: surgically absent Uterus: surgically absent Adnexa: surgically absent Rectal: Rectovaginal septum smooth. No masses. Normal rectal tone. Genetic Testing n/a Advance Directives Reviewed with patient on 11/13/[address], DPOE ASSESSMENT/PLAN I have reviewed old records and notes from [facility] and Care Everywhere, as appropriate, in summarizing the patient's prior relevant history to make my assessment and to formalize my recommended plan of care. Ovarian cancer Abdominal pain Post op evaluation Patient has recovered well from surgery with some residual pain,. - prescription for oxy n=15. We discussed the meaning of Dalia Mcfarlane surgery and findings and the impact that surgery hadto remove her disease and the encouraging fact that she had an optimal resection of her disease. Wediscussed my recommendations for adjuvant treatment with taxol carboplatin intravenous. I have advised chemotherapy for 4-6 cycles. We reviewed the risks, benefits and rationale for these reccommendations. We reviewed in detail some of the specific side effects including, but not limited to, alopecia fatigue, nausea, constipation, bone marrow suppression, neuropathy and constipation and other gastrointestinal side effects. We further discussed some of our strategies to prevent these side effects including the use of IV hydration, antiemetics and stool regimens. Further, we discussed scheduling MD visits during treatment to assess her progress and how she is tolerating her treatments. Patient would like chemotherapy at [facility] for proximity to home. - referral sent to Med ONc at [facility] We have discussed the timing of chemotherapy, the anticipated schedule of treatments. Finally we discussed ongoing surveillance of her chemotherapy related side effects and with visits in the Cancer Center and possible medications to manage these side effects. Genetic testing In view of the patient's personal cancer history of ovarian cancer, I have recommended consideration of genetic testing. We discussed at length the risks, benefits and rationale for performing genetic testing to better inform our decision making regarding the role of risk reducing strategies for any other cancers, as well as the impact on the patient's family members. We discussed the possibilityof inconclusive results, including variant of uncertain significance (VUS) and the as of yet undefined genetic syndromes. Finally we discussed that the testing would be most informative of an increased predisposition to cancer in the context of an affected individual with a documented mutation. - Genetics referral made I personally spent a total of 40 minute visit in counseling and coordinating care for Dalia Mcfarlane. We discussed the plan and rationale for ongoing surveillance. Aletha Francois MD Signed, Aletha Francois MD 12/03/2020 * Alem Valladares LNA - 12/03/2020 9:00 AM EDT Examination chaperoned by EMILY Flores. documented in this encounter Plan of Treatment Not on file documented as of this encounter Visit Diagnoses Diagnosis Post-operative state Other postprocedural status Left ovarian epithelial cancer S/P ECTOR-BSO (total abdominal hysterectomy and bilateral salpingo-oophorectomy) Acquired absence of both cervix and uterus documented in this encounter Care Teams Glaze Supervisor Relationship Specialty Start Date End Date Sue Espinosa PA [address] [place] [id number] PCP - General Family Medicine 11/09/20 02/14/22 documented as of this encounter
--- OUTSIDE RECORDS SUMMARY | 2024-01-02 18:41 | XMS_ITS | Encounter Summary ---
Author Organization Formerly [facility] [place] [address] Care Team Providers Care Garment Examiner Name Role Phone Sue Espinosa Primary Care Provider [phone] Encounter Details Date Type Department Care Team (Late st Contact Info) Description 01/07/2021 1:00 PM EDT Office Visit [place] [id number] Aletha Francois MD [facility] DR OBSTET[place] [address] Ovary cancer, right; Hypersensitivity reaction, sequela; Left [...] Progress Notes * Aletha Francois MD - 01/07/2021 1:00 PM EDT Images from the original note were not included. GYNECOLOGIC ONCOLOGY OUT PATIENT FOLLOW UP Date: 01/07/2021 Name: Dalia Tavera : 1955 CSN: [id number] Patient Care Team: Patient Care Team: Sue Espinosa PA as PCP - General (Family Medicine) CHIEF COMPLAINT Left ovarian cancer Chemotherapy follow up, cycle #2 HISTORY OF PRESENT ILLNESS Dalia Tavera is a 65 y.o. old para 0 woman, seen at the request of Faisal OLIVO in consultation for recommendations evaluation and assessment regarding her primary diagnosis of pelvic mass. Patient endorses acute onset abdominal pain and presented to ED [facility] 11/06/20 associated with some nausea. Patient reports prior episode 10 years earlier and diagnosis with UTI and treated with antibiotic. Patient had imaging and puga catheter placed and d/c home. Patient has not had pelvic exam or ob/gyn doctor care in many years, no issues. Has regular provider. Here with today. Last visit: surgery 12/17/20 Interval history Pain has been better and not requiring pain medications on daily basis Recently patient has had pain in her legs and had primary care provider write for hydrocodone 10 mg Patient would like pain med now during infusion Patient reports she is feeling better and doing more at home. Great appetite and energy level better. Bowel movement every day sometimes twice day Had mediport placed with some minimal tenderness Eating well great appetite Doing laundry, knitting and moving well at home Results for DALIA TAVERA ( ) as of 12/17/2020 09:08 Ref. Range 11/13/2020 16:56 CA 125 Latest Ref Range: <=38.1 unit/mL 19.6 Labs reviewed COVID vaccinated. Performance Status: 0 Oncology History [...] of my consultation today with the patient. [facility] 11/19/20 Left ovary (partial oophorectomy): ? Ovarian [...] benign lymph node. Negative cytology TVS 11/06/20 [facility] N CT ABD/PELVIS [facility] ED 11/06/20 Labs Creatinine 1.0 Normal LFT Total protein 7.9. 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 CURRENT MEDICATIONS Current Outpatient Medications Medication Sig Dispense Refill No current facility-administered medications for this visit. PHYSICAL EXAM There were no vitals taken for this visit. Exam: GENERAL: Well-appearing, female in no acute [...] the patient responds to questions appropriately in Malay. PELVIC EXAM: deferred Genetic Testing n/a Advance Directives Reviewed with [...] which patient has tolerated well this cycle. I have written for onpro for patient this cycle due to her neutropenia in last cycle. Patient did not have fevers, but due to co-morbid tiesi, I feel t is appropriate to optimize patient WBC martine with chemotherapy. We discussed the side effects of these medications and rationale for their use. We have discussed the timing of chemotherapy, the anticipated schedule of treatments. Plan to continue with chemotherapy taxol carboplatin intravenous today, labs cleared. Plan for 6 cycles taxol carboplatin intravenous chemotherapy. We may consider repeat imaging post 4 cycles of chemotherapy if any new symptoms or findings on [...] a documented mutation. - Genetics referral made Pain I have written for 10 mg oxycodone today Patient follows with primary care provider, but we will monitor pain medication use.it does not appear related to surgery or chemotherapy at this point in her recovery I personally spent a total of 30 minute visit in counseling and coordinating care for Dalia Tavera. We discussed the plan and rationale for ongoing surveillance. Signed, Aletha Francois MD 01/07/2021 documented in this encounter Plan of Treatment Not on file documented as of this encounter Visit Diagnoses Diagnosis Ovary cancer, right Hypersensitivity reaction, sequela Left ovarian epithelial cancer S/P ECTOR-BSO (total abdominal hysterectomy and bilateral salpingo-oophorectomy) Acquired absence of both cervix and uterus Educational circumstance Chemotherapy induced neutropenia Drug induced neutropenia Chemotherapy follow-up examination documented in this encounter Care Teams Garment Examiner Relationship Specialty Start Date End Date Sue Espinosa PA [address] [place] [id number] PCP - General Family Medicine 11/09/20 02/14/22 documented as of this encounter
--- OUTSIDE RECORDS SUMMARY | 2024-01-02 18:41 | XMS_ITS | Encounter Summary ---
[place] [address] Care Team Providers Care Advertising Agency Manager Name Role Phone Sue Espinosa Primary Care Provider [phone] Reason for Visit * Reason Onset Date Comments Prior Authorization 01/07/2021 Neulasta OnP ro 6 mg/0.6ml subcutainiously Encounter Details Date Type Department Care Team (Late st Contact Info) Description 01/07/2021 Telephone [place] [id number] Chrissie Ramírez RN Prior Authorization (Neulasta OnPro 6 mg/0.6ml subcutainiously) Social History Tobacco Use Types Packs/Day Years [...] Telephone Encounter - Chrissie Ramírez RN - 01/07/2021 4:36 PM EDT Prior Auth Request submitted online through [employer] Neulasta OnPro 6 mg/0.6 ml Kit - administer every 21 days on same day as chemotherapy Insurance - Aet Medicare Drug Coverage ID: [id number] Diagnosis: Ovarian Cancer of Left & of Right Ovaries (C56.1, C56.2) Provider: Aletha Francois MD Receiving Carboplatin/Paclitaxel infusions every 21 days - 4 Cycles [employer] CORONEL: [id number] Awaiting Response documented in this encounter Plan of Treatment Not on file documented as of this encounter Visit Diagnoses Not on filedocumented in this encounter Care Teams Advertising Agency Manager Relationship Specialty Start Date End Date Sue Espinosa PA [address] [address] PCP - General Family Medicine 11/09/20 02/14/22 documented as of this encounter
--- OUTSIDE RECORDS SUMMARY | 2024-01-02 18:41 | XMS_ITS | Encounter Summary ---
Author Organization [facility] [place] [address] Care Team Providers Care Patrol Sergeant Sheriff'S Office Name Role Phone Sue Espinosa Primary Care Provider [phone] Encounter Details Date Type Department Care Team (Late st Contact Info) Description 12/07/2020 Orders Only [place] [address] Aletha Francois MD [facility] DR OBSTETRICS [place] [address] Social History Tobacco Use Types Packs/Day Years [...] on filedocumented in this encounter Care Teams Patrol Sergeant Sheriff'S Office Relationship Specialty Start Date End Date Sue Espinosa PA [address] [place] [id number] PCP - General Family Medicine 11/09/20 02/14/22 documented as of this encounter
--- OUTSIDE RECORDS SUMMARY | 2024-01-02 18:41 | XMS_ITS | Encounter Summary ---
Author Organization Formerly [facility] [place] [address] Care Team Providers Care Cylinder Machine Operator Name Role Phone Sue Espinosa Primary Care Provider [phone] Encounter Details Date Type Department Care Team (Late st Contact Info) Description 01/07/2021 Orders Only [place] [address] Aletha Francois MD [facility] DR OBSTET[place]ICS [place] [address] Social History Tobacco Use Types Packs/Day Years [...] on filedocumented in this encounter Care Teams Cylinder Machine Operator Relationship Specialty Start Date End Date Sue Espinosa PA [address] [place] [id number] PCP - General Family Medicine 11/09/20 02/14/22 documented as of this encounter
--- OUTSIDE RECORDS SUMMARY | 2024-01-02 18:41 | XMS_ITS | Encounter Summary ---
Author Organization [facility] [place] [address] Care Team Providers Care Landscaping And Groundskeeping Laborer Name Role Phone Sue Espinosa Primary Care Provider [phone] Encounter Details Date Type Department Care Team (Late st Contact Info) Description 01/08/2021 10:30 AM EDT TH Visit (TeleHealth) Hematology [place] [address] Nadege Bustamante RPH Ovary cancer, right Social History Tobacco Use [...] as of this encounter Progress Notes * Thelma Foster RPH - 01/08/2021 10:30 AM EDT This patient was discussed at the time of the telephone encounter with the Hematology/Oncology Clinic Pharmacist. The assessment and plan were formulated in discussion with me and I agree with them as documented. I have reviewed the recommendations with the pharmacy aide. The Hematology/Oncology Clinic Pharmacist was present for the duration of the encounter. Thelma Foster RPH 01/08/21 * Nadege Bustamante RPH - 01/08/2021 10:30 AM EDT Oncology Clinical Pharmacist Consultation: Cycle 2, Day 1 follow-up Visit Type: Telehealth ?? Subjective: Patient ID: Dalia Mcfarlane is a 65 y.o. female diagnosed with Stage IC ovarian cancer who received cycle 2, day 1 of carboplatin/paclitaxel on 01/07/21. Chemotherapy regimen including supportive care was reviewed during the telephone office visit with the patient. ?? Allergies and Drug intolerance: Allergies Allergen Reactions ??? Fish Containing Products Nausea And Vomiting ??? Heparin Analogues ? Pork/Porcine Containing Products Nausea And Vomiting ??? Taxol [Paclitaxel] Other (See Comments) ? See nurses note 12/17/20 and MAR- Taxol needed to be infused over 5 plus hours. HSR protocol initiated x 2. Patient eventually completed Taxol. ? Chemotherapy Regimen includes the following agents: ?? Paclitaxel 175 mg/m2 IV every 3 weeks ?? Carboplatin AUC 5 IV every 3 weeks ?? Current Supportive Care Regimen: ?? Aprepitant 130 mg IV once prior to chemotherapy ?? Palonosetron 0.25 mg IV once prior to chemotherapy ?? Dexamethasone 10 mg IV once prior to chemotherapy ?? Diphenhydramine 50 mg orally once prior to chemotherapy ?? Famotidine 20 mg IV once prior to chemotherapy ?? Dexamethasone 20 mg orally 12 hours and 6 hours prior to chemotherapy. ?? Lorazepam 0.5 mg orally every 6 hours as needed for nausea and vomiting. ?? Ondansetron 8 mg orally every 8 hours as needed for nausea. ?? Prochlorperazine 10 mg orally twice daily for 3 days after chemotherapy (up to every 6 hours as needed). ?? Glutamine 15 grams orally twice daily for 4 days following chemotherapy. ?? Vitamin B6 100 mg orally once daily. ?? Qdbdf-hqphrs-fwvj 600 mg orally once daily. ?? Common side effects of this regimen include, but are not limited to: Carboplatin (paraplatin): The most common side effects include decrease in blood counts (decrease in white blood cells, red blood cells and platelets resulting in increased risk of infection, anemia and bleeding), nausea and vomiting, taste changes, hair loss, weakness, low magnesium level. Less common side effects include infusion reaction, diarrhea or constipation, mouth sores, kidney dysfunction, ringing in the ears or hearing loss, electrolyte abnormalities. ?? Paclitaxel (taxol):?? The most common potential side effects include: Decrease in blood counts (decrease in white blood cells, red blood cells and platelets, resulting in increased risk of infection,anemia and bleeding), numbness and tingling in the hands and feet, infusion reactions, nausea/vomiting, hair loss, diarrhea, muscle aches/joint pain, fatigue. The muscle aches tend to occur in the 2-3 days after treatment and last a few days. Less common side effects include swelling of the feet orankles, liver dysfunction, nail changes. ?? Patient reports the following side effects during cycle 1: ?? Muscle and joint aches and pain: Dalia states she is experiencing muscle and joint pain. She states she has experienced this pain in the past due to preexisting arthritis but feels the cancer and chemotherapy have exacerbated the pain. She notes that she ran out of her hydrocodone/acetaminophen (5/325 mg) prescription and was told to take acetaminophen until she can see her provider on the 19 of January. She is okay with this plan and knows to ask her provider for a new prescription during this upcoming visit.She was given two tablets of hydrocodone/acetaminophen (5/325 mg) while in clinic yesterday which she stated helped with her pain. ?? Nausea: Dalia experienced nausea during cycle 1 and states she woke up today feeling nauseous as well. She states the she took a tablet of prochlorperazine ~1 hour ago and she feels it is starting to work. ?? Insomnia: Although Dalia did not have any issues with sleep last night because she was given hydrocodone/acetaminophen while in clinic, she states she typically does not sleep well at night and is always tired. She explained that she takes naps during the day to make up for missed sleep at night. ?? Dalia denies experiencing side effects of peripheral neuropathy, diarrhea and constipation, and bone pain. Dalia is aware to start taking loratadine today and to continue for the following 5-7days. ?? Assessment and Recommendations: Assessment Dalia Mcfarlane is a 65 y.o. female diagnosed with Stage IC ovarian cancer who received cycle 2,day 1 of carboplatin/paclitaxel on 01/07/21. Dalia reported the following side effects: muscle and joint pain, nausea, and insomnia. The chemotherapy schedule, supportive care, common side effects,and ways to manage side effects were discussed with the patient during the visit today. ?? The following side effect mitigation and management strategies were discussed with the patient: ?? Muscle and joint pain: Dalia was encouraged to discuss her muscle and joint pain with her PCP as this was a preexisting issue. She plans to bring this issue up and knows to use acetaminophen forpain management in the meantime. ?? Nausea: Dalia was reminded that she can take her prochlorperazine every 6 hours as needed for nausea. It was explained that she should take a tablet at the first signs of nausea instead of waiting. Dalia plans to use her prochlorperazine more regularly in hopes that her nausea will be more co ntrolled. ?? Insomnia: Dalia has never tried over the counter medications for sleep such as melatonin and was advised to discuss trying this medication when she sees her PCP on January 19. She was encouraged to maintain good sleep hygiene by taking less naps during the day. She was also reminded to stay active as this can help with feeling tired during the day. ?? F/u needed? no ?? Dalia was provided with clinic pharmacist contact information. ?? Pt understands no changes to current drug regimen were made at the appointment and that [facility] is providing recommendations for provider review and follow up. ?? Nadege Bustamante RPH 01/07/21 ?? 15 minutes were spent providing patient education. documented in this encounter Plan of Treatment Not on file documented as of this encounter Visit Diagnoses Diagnosis Ovary cancer, right documented in this encounter Care Teams Landscaping And Groundskeeping Laborer Relationship Specialty Start Date End Date Sue Espinosa PA [address] [address] PCP - General Family Medicine 11/09/20 02/14/22 documented as of this encounter
--- OUTSIDE RECORDS SUMMARY | 2024-01-02 18:41 | XMS_ITS | Encounter Summary ---
Author Organization [facility] [place] [address] Care Team Providers Care Sales Supervisor Name Role Phone Sue Espinosa Primary Care Provider [phone] Encounter Details Date Type Department Care Team (Late st Contact Info) Description 11/23/2020 4:50 AM EDT Ancillary Procedure Radiology Library at [place] [address] Sue Espinosa PA [address] [place] [id number] Social History Tobacco Use Types Packs/Day Years [...] Procedure Name Priority Date/Time Associated Diagnosis Comments FILM LIBRARY STORAGE ONLY CT ABDOMEN AND PELVIS Routine 11/23/2020 4:47 AM EDT documented in this encounter Results * Film Library- Storage Only CT Abdomen & Pelvis (11/23/2020 4:47 AM EDT) Narrative [facility] - 11/23/2020 4:47 AM EDT This exam is auto-finalizing. It's purpose is for storage only. Sue AVALOS G FILM LIBRARY ORD ERABLES [place], [place] documented in this encounter Visit Diagnoses Not on filedocumented in this encounter Care Teams Sales Supervisor Relationship Specialty Start Date End Date Sue Espinosa PA [address] [place] [id number] PCP - General Family Medicine 11/09/20 02/14/22 documented as of this encounter
--- OUTSIDE RECORDS SUMMARY | 2024-01-02 18:41 | XMS_ITS | Encounter Summary ---
Author Organization [facility] Address [facility] [place] [address] Care Team Providers Care Fuselage Framer Name Role Phone Sue Espinosa Primary Care Provider [phone] Reason for Visit * Auth/Cert Specialty Diagnoses / Procedures Referred By Ryan turk Referred To Contact Diagnoses Ileus RLQ pain Referral ID Status Reason Start Date Expiration Date Visits Re quested Visits Authorized [id number] 1 1 Encounter Details Date Type Department Care Team (Latest Contact Info) Description 11/23/2020 7:23 PM EDT - 11/26/2020 11:53 AM EDT Hospital Encounter 1 [place] [id number] Aletha Francois MD [facility] [address] Discharge Disposition: Home Social History Tobacco Use [...] Sign Reading Time Taken Comments Blood Pressure 155/81 11/26/2020 8:28 AM EDT Pulse 102 11/24/2020 4:16 AM EDT Temperature 36.9 ??C (98.4 ??F) 11/26/2020 8:28 AM ED T Respiratory Rate 16 11/26/2020 8:28 AM EDT Oxygen Saturation 91% 11/26/2020 10:00 AM EDT Inhaled Oxygen Concentration - - Weight 76.3 kg (168 lb 3.4 oz) 11/24/2020 6:39 A M EDT Height 165.1 cm (5' 5) 11/24/2020 8:29 PM EDT r eported Body Mass Index 27.99 11/24/2020 6:39 AM EDT documented in this encounter Discharge Summaries * Alehta Francois MD - 11/26/2020 9:44 AM EDT Images from the original note were not included. Discharge Summary Patient Name: Dalia Mcfarlane Patient Age: 65 y.o. Language: Spanish Race: White Ethnicity: Not nor Admit date: 11/23/2020 Discharge date and time: 11/26/2020 Attending Physician: Aletha Francois MD Discharge Physician: Aletha Francois MD Follow-up Recommendations for Providers: -Follow-up with Dr. Francois on 12/03/20 at 9:00AM Inpatient Provider Contact Information: Dr. Aletha Francois, [facility] Gynecologic Oncology, Discharge Diagnoses (Hospital Problems) and Secondary Diagnoses (Chronic Problems): Active Hospital Problems Diagnosis ??? Ileus, postoperative ??? RLQ abdominal pain ??? Ileus ??? Pelvic mass Resolved Hospital Problems No resolved problems to display. There are no active non-hospital problems to display for this patient. Operations/Major Procedures: none History of Presentation: Dalia is a 65 y.o. Female with PMH fibromyalgia, HTN who is post-operative day# 4 s/p total abdominal hysterectomy, bilateral salpingo-oophorectomy, bilateral pelvic and para-aortic lymph node sampling, omentectomy with new diagnosis of clear cell ovarian cancer who now presents in transfer to [facility] with abdominal pain and nausea concerning for postoperative ileus. ?? Dalia was discharged 11/21/20 after her surgery and was initially doing well at home. She states her pain was initially adequately controlled on PO medications. She had been able to pass flatus but had not had a bowel movement since surgery. She was tolerating a regular diet and was eating up a storm; everything I could get my hands on. Her last solid food intake was 11/22 evening and was a large hamburger. She states after that meal she went to bed and was comfortable at that time. ?? She then presented to [facility] following the acute onset of intractable nausea and vomiting around midnight, worsening until 3:30 am on 11/23. She awoke with abdominal pain and severe nausea. She states her lower abdominal pain at this time was worse on the right side and exacerbated by movement. She reports she soaked through 5 towels with large volume uncontrolled emesis. She tried taking her homeoxycodone for the pain which did not touch it. Given the sudden onset of her symptoms, she presented with her to [facility] for evaluation at 5:30 am. There, vitals were stable, she was afebrile,with no leukocytosis (WBC 7), lactate 1.9 which downtrended to 0.8 after IV hydration, hemoglobin 12.9 on admission and stable with dilutional component at 10.9 after several hours of IV hydration. She received several doses of IV Dilaudid and IV morphine throughout the day for pain control, along with IV Zofran for pain control. Exam notable for intact incision, moderate RLQ and generalized abdominal tenderness. CT imaging with a small fluid collection in right lower pelvis without surrounding induration, significant stool burden in the colon. Dr. Alvarez ED physician discussed with Dr. Nadine Joseph, on-call Gynecologic Oncologist who reviewed the imaging and recommended transfer to [facility] for further management of possible postoperative ileus versus small bowel obstruction. ?? On admission, Dalia continues to endorse 7/10 lower abdominal pain described as cramping, aching along with continued nausea and vomiting. She has received IV pain medicaiton which she states has helped her symptoms. She denies fever, chills, chest pain, SOB, leg pain. ?? Gynecologic Oncology History: -11/06/20 Acute onset abdominal pain with associated nausea and presented to ED [facility]. ??Patient reports prior episode 10 years earlier and diagnosis with UTI and treated with antibiotic. ??CT scan showed pelvic mass.?Patient had imaging and puga catheter placed and d/c home.? -CA-125: 19.6 / CEA 0.8 / CA 19-9: 17.1 -11/19/20 exploratory laparotomy, total abdominal hysterectomy, bilateral salpingo-oophorectomy, b/l pelvic and para-aortic lymph node sampling, omentectomy, staging biopsies, ebl 500mL Hospital Course: Dalia was admitted to Gynecologic Oncology and placed on IVF, Fentanyl OFFSET MACHINE OPERATOR, and managed conservatively. A re-read of her CT was suggstive of a post op ileus. By HD#3/POD#6 her nausea was improved and she was passing flatus and stool. Her diet was advanced and medications changed back to oral. By HD#4/POD#7 she was tolerating a regular diet without nausea, passing flatus and stool, pain wellmanaged on po medications, and she was ambulating without issue. She is discharged to home with follow-up in place, discharge instructions and plan of care dicussed, all questions answered. Due to their post-operative pain the patient was given a prescription for oxycodone to take only for breakthrough pain not responsive to acetaminophen and ibuprofen. The patient was counseled regarding the dangers of these medications including sedation which would impair their ability to drive safely. The potential for addiction with continued use of narcotic was discussed and the need to stop use as soon as possible. It was recommended that the patient promptly destroy unused medication or take them back to drop box locations. The opioid risk assessment was done, opioid informed consent reviewed and signed by patient, PDMP query completed. Discharge instructions discussing the risk of opioids are included in their discharge instructions which are printed and given to the patient at discharge. Vital signs at Discharge: BP: 155/81, Heart Rate: (!) 102, Temp: 36.9 ??C (98.4 ??F), Resp: 16, Height: 165.1 cm (5' 5) (reported) (11/24/202028) Weight: 76.3 kg (168 lb 3.4 oz) (11/24/20 0639) Functional and Cognitive status: Fully functional and cognitively intact Important Studies and Lab Data: Labs: Last 3 wbc, hgb, hct plt Recent Labs 11/20/20 0835 11/13/20 1656 WBC 10.3* 8.0 HGB 10.8* 14.1 HCT 32.0* 41.6 PLATELET 255 326 Last 3 Lytes Recent Labs 11/24/20 0409 11/20/20 0835 11/13/20 1656 NA 142 138 142 K 3.5 4.1 3.7 CL 107 104 102 CO2 29 23 26 BUN 7* 7* 5* CREATININE 0.61* 0.78 0.90 Studies: -CT a/p 11/23/20 2nd read: 1. Prominent but nondilated segments of proximal small bowel with smooth transition to distal nondistended bowel segments, likely related to an ileus. Adjacent inflammatory changes within the proximal small bowel, likely related to a reactive enteritis. A developing small bowel obstruction is not excluded. 2. Lentiform air and fluid containing collection along the ventral margin of the liver may be related to postoperative change; superimposed abscess is not excluded. 3. Few locules of pneumoperitoneum, likely related to recent surgical intervention. 4. Postsurgical changes along the bilateral pelvic sidewalls. 3.9 x 2.5 cm heterogeneous collection along the right pelvic sidewall, likely related to a postoperative hematoma. No active extravasation. 5. Underdistended urinary bladder with adjacent inflammatory changes, likely related to postoperative change. Superimposed cystitis is not excluded. 6. Locule of air within the urinary bladder, likely related to recent instrumentation. Pending Studies and Lab Data: Final path Discharge Conditions/Prognosis: stable Discharge to: Home Updated Allergies/ADRs: No Known Allergies Immunizations Given this Hospitalization: There is no immunization history on file for this patient. Discharge Medications: Your Medications New Medications Dose Details polyethylene glycoL 17 gram/dose Powd Commonly known as: Miralax Take 17 g by mouth daily as needed. 17 g Quantity: 255 g Refills: 0 senna-docusate 8.6-50 mg Tab Commonly known as: Pericolace Take 1 tablet by mouth 2 times daily as needed for Constipation. Please take this if you are using oxycodone 1 tablet Quantity: 60 tablet Refills: 0 Continued medications with new dosing Dose Details oxyCODONE 5 mg Tab Commonly known as: Roxicodone Take 1 tablet by mouth every 4 hours as needed for Pain (breakthrough pain). What changed: ?? how much to take ?? when to take this ?? reasons to take this 5 mg Quantity: 15 tablet Refills: 0 Continued medications, unchanged Dose Details acetaminophen 325 mg Tab Commonly known as: Tylenol Take 2 tablets by mouth every 6 hours. 650 mg Quantity: 30 tablet Refills: 1 dimenhyDRINATE 50 mg Tab Commonly known as: Dramamine Take 50 mg by mouth as needed. Pt does take for long car rides maybe 2x per year 50 mg Refills: 0 enoxaparin 40 mg/0.4 mL Syrg Commonly known as: Lovenox Inject 0.4 mLs subcutaneously nightly for 12 days. 40 mg Quantity: 4.8 mL Refills: 0 gabapentin 600 mg Tab Commonly known as: NEURONTIN TAKE ONE TABLET BY MOUTH FOUR TIMES A DAY Refills: 0 ibuprofen 600 mg Tab Commonly known as: Advil Take 1 tablet by mouth every 6 hours. 600 mg Quantity: 30 tablet Refills: 12 lisinopriL 5 mg Tab Commonly known as: Zestril TAKE ONE TABLET BY MOUTH EVERY DAY Refills: 0 Smoking Status at Discharge: Social History Tobacco Use Smoking Status Never Smoker Smokeless Tobacco Never Used Instructions Given to Patient at Discharge: Patient Instructions PATIENT DISCHARGE INSTRUCTIONS Gynecologic Oncology phone number: [phone]. After hours and on weekends please call hospital block machine operator at [phone] and ask for Gynecologic Oncologist irrigationist designer. Call your doctor if you develop: --A fever over 101 degrees --Severe pain --Increasing pain, redness, or discharge at your incision --Heavy vaginal bleeding- soaking through a pad an hour --It is normal to have continuous or intermittent light spotting from the vagina for up to 6 weeks following hysterectomy -Follow-up with Dr. Francois on 12/03/20 at 9:00AM -Continue to use enoxaparin (Lovenox) once daily through 12/03/20 to prevent blood clots Activity level: No heavy lifting (10lbs max), pushing or pulling for 6 weeks. No sexual intercourse, no tampons, nothing in the vagina for 8 weeks. Diet: You may resume your regular diet. Be sure you drink plenty of fluids. Bowel regimen: Please use fabain-colace (senna-S or docusate-senna) 1-2 tablets twice daily for the entire time that you are taking narcotic pain medication to keep your bowel movements soft and regular. You may consider using this post- operatively even if you are not using narcotic pain medication. You can increase this to up to 8 tablets a day (and may take 6-12 hours for effect). If you are constipated or have not had a bowel movement in 2 days, you may add in polyethylene glycol (Miralax) 17g(one capful) 1-2 times daily (may take 1-2 days for effect). If this is ineffective you may add Milk of Magnesia 30mL (2 Tablespoons) daily (may take 30 minutes - 6 hours to work). The next step is to use Magnesium Citrate 1 bottle (295mL)- this usually produces a bowel movement in 30 minutes-3 hours. Please call if you have not had a bowel movement in 3-4 days. Driving: Do not drive until you are off of all narcotic medications and you are not feeling pain; usually about 1-2 weeks. Shower/Bath: Showering is fine. Short baths are okay but you should avoid having any abdominal incision submerged for more than 10-15 minutes for the next 2 weeks. Wound Care: Your incision is closed with dissolvable stitches. The stitches do not need to be removed-- they will dissolve on their own. Pain Control: For your post-operative pain please use ibuprofen, acetaminophen, heating pad, and narcotic pain medication (oxycodone) for your pain management. Your goal is to be able to take severalshort walks every day (increase the duration each day) and to be able to sleep at night. If you areunable to do these things using the ibuprofen and acetaminophen and heating pad then you will need to use the narcotic pain medication (oxycodone) for breakthrough pain. You should be able to use less oxycodone every couple days and require no breakthrough narcotic pain medication in about 1-2 weeks. 1. Please use ibuprofen (Advil/Motrin) 600mg every 6 hours as needed (use this medication first). 2. Please use acetaminophen (Tylenol) 650mg every 6 hours as needed (or 1000mg every 8 hours as needed). Do not exceed 3000mg of acetaminophen from any source in 24 hours. 3. Please use oxycodone every 4-6 hours as needed for pain that ???breaks through?? the ibuprofen and acetaminophen. Please take your medication exactly as prescribed. Read all instructions that come with your medication. ?? Using narcotic pain medication (such as oxycodone, hydrocodone, hydromorphone [Dilaudid], morphine, fentanyl, or tramadol [Ultram]) may cause addiction. While addiction is more common in people with a personal or family history of addiction, it can occur in anyone. ?? Taking more than the prescribed amount of medication or using with alcohol or other drugs can cause you to stop breathing resulting in coma, brain damage, or . ?? Opioids (oxycodone, hydrocodone, hydromorphone [Dilaudid], morphine, fentanyl, tramadol [Ultram]) can slow reaction time, cause drowsiness, or cloud judgement. It is unsafe for you to drive or operate heavy machinery while taking this medication. ?? Opioids (oxycodone, hydrocodone, hydromorphone [Dilaudid], morphine, fentanyl, tramadol [Ultram]) are at risk of being diverted by anyone with access to your home. Opioids should be stored in a safe and secure place, such as a locked cabinet or safe. Unused opioids (oxycodone, hydrocodone, hydromorphone [Dilaudid], morphine, fentanyl, tramadol [Ultram]) should be disposed of according to the label or patient information. If there are no specific instructions, medications may be returned to a take-back location or mixed with a small amount of water and an undesirable waste substance such as coffee grounds or cat litter. General Instructions None Future Appointments and Orders Future Appointments and Orders Future Appointments Provider Department Dept Phone 12/03/2020 9:00 AM Aletha Francois MD Gynecology Oncology at [facility] Arrive at: Director Strategy Area [phone] Discharge References/Attachments None Provider Contact Information: BAILEY Cannon [phone] documented in this encounter Discharge Instructions * Patient Instructions* Shraddha Mack PA - 11/24/2020 9:55 AM EDT Images from the original note were not included. PATIENT DISCHARGE INSTRUCTIONS Gynecologic Oncology phone number: [phone]. After hours and on weekends please call hospital block machine operator at [phone] and ask for Gynecologic Oncologist irrigationist designer. Call your doctor if you develop: --A fever over 101 degrees --Severe pain --Increasing pain, redness, or discharge at your incision --Heavy vaginal bleeding- soaking through a pad an hour --It is normal to have continuous or intermittent light spotting from the vagina for up to 6 weeks following hysterectomy -Follow-up with Dr. Francois on 12/03/20 at 9:00AM -Continue to use enoxaparin (Lovenox) once daily through 12/03/20 to prevent blood clots Activity level: No heavy lifting (10lbs max), pushing or pulling for 6 weeks. No sexual intercourse, no tampons, nothing in the vagina for 8 weeks. Diet: You may resume your regular diet. Be sure you drink plenty of fluids. Bowel regimen: Please use fabian-colace (senna-S or docusate-senna) 1-2 tablets twice daily for the entire time that you are taking narcotic pain medication to keep your bowel movements soft and regular. You may consider using this post- operatively even if you are not using narcotic pain medication. You can increase this to up to 8 tablets a day (and may take 6-12 hours for effect). If you are constipated or have not had a bowel movement in 2 days, you may add in polyethylene glycol (Miralax) 17g(one capful) 1-2 times daily (may take 1-2 days for effect). If this is ineffective you may add Milk of Magnesia 30mL (2 Tablespoons) daily (may take 30 minutes - 6 hours to work). The next step is to use Magnesium Citrate 1 bottle (295mL)- this usually produces a bowel movement in 30 minutes-3 hours. Please call if you have not had a bowel movement in 3-4 days. Driving: Do not drive until you are off of all narcotic medications and you are not feeling pain; usually about 1-2 weeks. Shower/Bath: Showering is fine. Short baths are okay but you should avoid having any abdominal incision submerged for more than 10-15 minutes for the next 2 weeks. Wound Care: Your incision is closed with dissolvable stitches. The stitches do not need to be removed-- they will dissolve on their own. Pain Control: For your post-operative pain please use ibuprofen, acetaminophen, heating pad, and narcotic pain medication (oxycodone) for your pain management. Your goal is to be able to take severalshort walks every day (increase the duration each day) and to be able to sleep at night. If you areunable to do these things using the ibuprofen and acetaminophen and heating pad then you will need to use the narcotic pain medication (oxycodone) for breakthrough pain. You should be able to use less oxycodone every couple days and require no breakthrough narcotic pain medication in about 1-2 weeks. 1. Please use ibuprofen (Advil/Motrin) 600mg every 6 hours as needed (use this medication first). 2. Please use acetaminophen (Tylenol) 650mg every 6 hours as needed (or 1000mg every 8 hours as needed). Do not exceed 3000mg of acetaminophen from any source in 24 hours. 3. Please use oxycodone every 4-6 hours as needed for pain that ???breaks through?? the ibuprofen and acetaminophen. Please take your medication exactly as prescribed. Read all instructions that come with your medication. ?? Using narcotic pain medication (such as oxycodone, hydrocodone, hydromorphone [Dilaudid], morphine, fentanyl, or tramadol [Ultram]) may cause addiction. While addiction is more common in people with a personal or family history of addiction, it can occur in anyone. ?? Taking more than the prescribed amount of medication or using with alcohol or other drugs can cause you to stop breathing resulting in coma, brain damage, or . ?? Opioids (oxycodone, hydrocodone, hydromorphone [Dilaudid], morphine, fentanyl, tramadol [Ultram]) can slow reaction time, cause drowsiness, or cloud judgement. It is unsafe for you to drive or operate heavy machinery while taking this medication. ?? Opioids (oxycodone, hydrocodone, hydromorphone [Dilaudid], morphine, fentanyl, tramadol [Ultram]) are at risk of being diverted by anyone with access to your home. Opioids should be stored in a safe and secure place, such as a locked cabinet or safe. Unused opioids (oxycodone, hydrocodone, hydromorphone [Dilaudid], morphine, fentanyl, tramadol [Ultram]) should be disposed of according to the label or patient information. If there are no specific instructions, medications may be returned to a take-back location or mixed with a small amount of water and an undesirable waste substance such as coffee grounds or cat litter. documented in this encounter Medications at Time of Discharge Medication Sig Dispensed Refills Start Date End Date polyethylene glycoL (Miralax) 17 gram/dose Powder Take 17 g by mouth daily as needed. 255 g 11/26/2020 acetaminophen (Tylenol) 325 mg Tablet Take 2 tablets by mouth every 6 hours. 30 tablet 1 11/21/2020 gabapentin (NEURONTIN) 600 mg Tablet TAKE ONE TABLET BY MOUTH FOUR TIMES A DAY 11/03/2020 diphenhydrAMINE (Benadryl) 50 mg Capsule Take 50 mg by mouth as needed. Take 50 mg as needed for motion sickness 11/23/2020 10/18/2021 ondansetron (Zofran) 4 mg Tablet Take 1 tablet by mouth every 8 hours as needed. 11/06/2020 12/07/2020 potassium chloride (K-Tab) 20 mEq Tablet Sustained Release Take 1 tablet by mouth daily. 11/06/2020 01/28/2021 oxyCODONE (Roxicodone) 5 mg Tablet Take 1 tablet by mouth every 4 hours as needed for Pain (breakthrough pain). 15 tablet 11/26/2020 12/03/2020 senna-docusate (Pericolace) 8.6-50 mg Tablet Take 1 tablet by mouth 2 times daily as needed for Constipation. Please take this if you are using oxycodone 60 tablet 11/26/2020 10/18/2021 enoxaparin (Lovenox) 40 mg/0.4 mL Syringe Inject 0.4 mLs subcutaneously nightly for 12 days. 4.8 mL 11/21/2020 12/03/2020 ibuprofen (Advil) 600 mg Tablet Take 1 tablet by mouth every 6 hours. 30 tablet 12 11/21/2020 01/28/2021 lisinopriL (Zestril) 5 mg Tablet TAKE ONE TABLET BY MOUTH EVERY DAY 08/08/2020 12/17/2020 dimenhyDRINATE (Dramamine) 50 mg Tablet Take 50 mg by mouth as needed. Pt does take for long car rides maybe 2x per year 10/18/2021 documented as of this encounter Progress Notes * Aletha Francois MD - 11/26/2020 7:20 AM EDT Images from the original note were not included. Gynecologic Oncology Progress Note Dalia Mcfarlnae is a 65 y.o. woman whose PMH is significant for fibromyalgia and HTN who is post operative day # 7 s/p ECTOR/BSO for high grade ovarian cancer, now hospital day #4 readmitted with ileus. Interval Events: - tolerated a regular diet at dinner last night without nausea - 2 bowel movements Subjective: Dalia reports feeling great this morning, was able to eat a regular diet for dinner last night without nausea, vomiting. Walked in the ste[place] yesterday without lightheadedness. Still rates her pain at 6/10 and is taking oxy regularly, but reports feeling well. She denies fever, chills, chest pain, shortness of breath, leg pain and swelling. Physical Exam: Last value Range last 8 hrs Temperature Temp: 36.9 ??C (98.4 ??F) Temp: [36.9 ??C (98.4 ??F)] Heart Rate Heart Rate: (!) 102 Heart Rate: -- Blood Pressure BP: 155/81 BP: (155)/(81) Respiratory Rate Resp: 16 Resp: [16] SpO2 SpO2: 91 % SpO2: [91 %] Intake/Output Summary (Last 24 hours) at 11/26/2020 1440 Last data filed at 11/26/2020 1000 Gross per 24 hour Intake 740 ml Output 975 ml Net -235 ml I/O this shift: In: 500 [P.O.:500] Out: 300 [Urine:300] Body mass index is 27.99 kg/m??. Patient Vitals for the past 168 hrs: Weight 11/24/20 0639 76.3 kg (168 lb 3.4 oz) 11/23/20 1944 75.1 kg (165 lb 9.1 oz) Gen: Resting comfortably in bed. NAD. Hard of hearing. Neuro: Alert and oriented. Cardiac: RRR. No murmurs, rubs, or gallops. Pulm: CTAB. No wheezes, rales, or rhonci. Abd: +normoactive BS. Soft. Mild tenderness to palpation of RLQ, otherwise non- tender. No rebound or guarding. Incision: VMLI with subcuticular closure. C/D/I. No surrounding drainage, erythema, or induration. Mild resolving ecchymosis at middle aspect of incision. Extremities: No lower extremity edema. SCDs not on Laboratory (Last 24 Hours): Recent Labs 11/20/20 0835 WBC 10.3* HGB 10.8* HCT 32.0* PLATELET 255 Recent Labs 11/24/20 0409 11/20/20 0835 NA 142 138 K 3.5 4.1 CL 107 104 CO2 29 23 BUN 7* 7* CREATININE 0.61* 0.78 MAGNESIUM 0.81 0.75 PHOS 3.1 -- Final Pathology Pending Assessment and Plan Dalia Mcfarlane is a 65 y.o. female with a past medical history significant for HTN and fibromyalgia who is s/p ECTOR/BSO for high grade ovarian cancer, now readmitted with ileus. Reports significant improvement since yesterday Please see systems based assessment below. Neuro: Pain well controlled on oxycodone, home gabapentin. OFFSET MACHINE OPERATOR discontinued yesterday Cardiovascular: BP: (155)/(81) . BP improved s/p resuming lisinopril. Hemodynamically stable, no evidence of bleeding. --Continue home lisinopril Heme: Mild postoperative anemia, Hgb 12.9>10.9 with dilution from aggressive IV hydration at OSH, stable from postoperative Hgb 10.8 on discharge after EBL 500 mL. No signs or symptoms of anemia. --CBC PRN Pulmonary: Adequate spO2 on room air. No concerns --Encourage incentive spirometry GI: Improving nausea, tolerated a regular diet last night without nausea or emesis : Voiding spontaneously. --Monitor intake and output Onc: Frozen section revealed high-grade carcinoma. Final pathology report pending. --Follow up in clinic 12/03/[address] Francois Endocrine: No acute Issues ID: Afebrile, no current concerns -- Repeat CBC PRN?? Prophylaxis: --40 mg nightly SC Lovenox --Incentive spirometry --SCDs MSK: Will consult PT/OT to encourage strengthening and continued exercise despite hospitalization -- PT/OT consultation Dispo: Anticipate discharge home later today Code Status: Full Code Citlali Jarvis MD PGY4 11/26/2020 * Laura Luna, PT - 11/25/2020 3:01 PM EDT Physical Therapy Evaluation Patient profile: 65 y.o female s/p ECTOR/BSO and omentectomy for ovarian cancer admitted with N/V andileus. Pt much improved today and has ROBF. Patient with the following active problems: Past Medical History: Diagnosis Date ??? Chronic pain in abdomen ??? High blood pressure controlled with medication ??? Motion sickness pt states car sickness Past Surgical History: Procedure Laterality Date ??? PRO JAZIEL SALP-OOPH W/OMENTECT, ECTOR, RAD DISSECT N/A 11/19/2020 @HYSTERECTOMY, ECTOR, BSO, DEBULKING (WRVU 34.13) performed by Aletha Francois MD at [facility] MAIN OR ??? PRO REMOVAL, ABDOMEN LYMPH NODE, STAGING N/A 11/19/2020 @LYMPHADENECTOMY, LIMITED FOR STAGING, RETROPERITONEAL (WRVU 11.38) performed by Aletha Francois MD [facility] MAIN OR Social History: Lives with her in [facility], JAZIEL is visiting Home set-up:one floor set up Stairs: 3STE with B railings Baseline Mobility:independent Equipment at home: FWW Fall history: denies falls Precautions/Special Considerations: PIV, Midline Incision, wear clear mask, pt is [place] and reads lips Diet:Regular Activity orders: AAT Mobility and Positioning Recommendations: ?? Pt. Can ambulate with supervision with nursing. ?? Please encourage up to chair for meal times as able. ?? Pt encouraged to ambulate frequently with staff, getting into the bathroom for toileting and walking out in the steiner >/= 3 times daily as able. Subjective: ???It's all about nutrition and exercise, After I heal from this I'll get 4-6 rounds ofchemo?? Objective: Pt seen for evaluation today. Pain: premedicated for abdominal pain with good effect Vital Signs: stable on RA Mental Status: alert, oriented to person, place, and time, good spirits, feeling so much better Vision: WNL Skin: midline incision healing, no drainage Musculoskeletal: ROM: decreased trunk, flexed cervicothoracic junction d/t spinal arthritis, extremities WFL Strength: WFL Sensation: pt denies any sensory changed Bed Mobility: Supine to Sit: rolls to exit L side of bed Sit to Supine: independent Transfers: Sit to Stand: independent Stand to Sit: independent Bed to toilet: supervision Gait: Distance: 150 ft Device used: none Level of assist: SBA Gait mechanics: steady gait with medium arnold, no LOB, no increase in pain Stairs: 3 stairs with B railings, reciprocal gait Balance: good sitting balance at EOB, steady gait on level surfaces and stairs Therex: issued and reviewed sitting and standing core 4 exercises. Reviewed basic breathing exercises, abdominal bracing and basic bed exercises Education: patient has been educated on Bed mobility, Transfers, Exercise, Positioning, Role of therapy, Discharge planning and importance of strengthening during her chemo. and verbalizes understanding. Discussed cancer related fatigue and role of exercise. Patient status, treatment, and mobility recommendations discussed with nursing. Assessment: Dalia Mcfarlane was seen today for physical therapy evaluation. Pt presents with the following impairments: pain, integumentary integrity and p.o intake s/p ECTOR BSO and subsequent ileus.Pt is no longer nauseous, pain is managed and she is tolerating some p.o./Pt understands how to mobilize and performed abdominal isometrics to protect surgical incision. Plan for chemo once she recovers from her abdominal surgery, pt aware of need to continue exercising, protecting her incision in preparation for treatment. very supportive. No further PT needs. Continue with HEP Discharge Recommendations: Anticipated Discharge Disposition (PT): (P) home Consult Recommendations: No other consults recommended at this time. Equipment needs: Anticipated Equipment Needs at Discharge (PT): (P) None Plan: Therapy Frequency (PT): (P) evaluation only . Patient/family understand and agree with plan as stated above. 2017 PT Evaluation Code Rationale: ?? Diagnosis & Pertinent Co-Morbidities, personal factors, and present illness affecting Plan of Care: (see above); Additional personal factors or co- morbidities that impact plan: ?? Total # of Factors: 0 1-2 3+ x ?? Examination of body system impairments, functional limitations and behaviors, and/or participation restrictions. Addressing 1-2 elements Addressing 3 + elements Addressing 4 + elements x ?? Clinical presentation: See assessment above. Stable/Uncomplicated Evolving/Fluctuating Symptoms Unstable/Unpredictable x ?? Clinical decision making of low complexity based on pt's functional performance as outlined in this evaluation. Time IN / OUT: 2:43-3:01 Total Minutes, Physical Therapy: (P) 18 LAURA LUNA, PT Pager: [phone] Physical Therapy Inpatient Rehabilitation Department * Mary Rose OT - 11/25/2020 8:55 AM EDT Occupational Therapy Evaluation Patient profile: Dalia Mcfarlane is a 65 y.o. female admitted on 11/23/2020 for ileus. She is currently post operative day # 6 s/p ECTOR/BSO for high grade ovarian cancer. PMH is significant for fibromyalgia and HTN. Past Medical History: Diagnosis Date ??? Chronic pain in abdomen ??? High blood pressure controlled with medication ??? Motion sickness pt states car sickness Past Surgical History: Procedure Laterality Date ??? PRO JAZIEL SALP-OOPH W/OMENTECT, ECTOR, RAD DISSECT N/A 11/19/2020 @HYSTERECTOMY, ECTOR, BSO, DEBULKING (WRVU 34.13) performed by Aletha Francois MD at [facility] MAIN OR ??? PRO REMOVAL, ABDOMEN LYMPH NODE, STAGING N/A 11/19/2020 @LYMPHADENECTOMY, LIMITED FOR STAGING, RETROPERITONEAL (WRVU 11.38) performed by Aletha Francois MD [facility] MAIN OR Social History: Home Setup: pt lives with her and three cats. 3 SRAVAN to main living area which has bedroom, kitchen, and bathroom. Tub shower with a chair and GBs, along with elevated toilet seat Functional Status: pt is independent with ADLs. She is responsible for most IADLs, including household tasks. Pt typically drives. She does not work. Pt's can assist as needed and pt's [id number] is here for the next week and a half to help out. Pt typically does not use a device to ambulate but will occasionally use a FWW 2/2 arthritis Equipment at home: shower chair, FWW Precautions/Special Considerations: fall risk, full code, clear liquid diet, up with assistance, OFFSET MACHINE OPERATOR Subjective: I feel a lot better today Objective: Seen today for OT evaluation. ??? Vital Signs o HR: 101 bpm with activity o SpO2: 94% on RA at rest, with activity o BP: 172/76 post-activity ??? Pain: 6/10 abdominal pain with activity, pt used OFFSET MACHINE OPERATOR once during session, reports subsiding pain with rest ??? Cognitive Status/Behavior o Behavior / Mood: alert, cooperative and pleasant o Alert and oriented to: person, place, time and situation o Follows commands: multi step and 100% of the time o Attention: WFL o Safety awareness: WFL ? ? Vision & Perception o corrective lenses multimedia assistant ?? Communication o WFL ??? Musculoskeletal o Hand dominance: left and right o ROM: BUEs WFL o Strength: BUEs WFL o Sensation: denied N/T o Skin: incision c/d/i ??? Activities of Daily Living: o Self-feeding: independent as indicated by good BUE ROM, strength, and coordination o Grooming: independent as indicated by good BUE ROM, strength, and coordination o Dressing: educated on using figure four method to dress LB and minimize abdominal pain, pt had performed earlier today with no complaints o Bathing: anticipate supervision for seated sponge bathing o Toileting: supervision for toilet transfer, hygiene, and clothing management ??? Functional Mobility: o Supine to sit: independent o Sit to stand: supervision o Ambulation: 80' with supervision and FWW, assist to manage IV pole, occasional cue for FWW management while standing at sink. Reported feeling dizzy towards end of walk, dizziness resolved once sitting EOB and BP was stable o Stand to sit: supervision o Sit to supine: independent ??? Balance o Sitting balance: good o Standing balance: fair Education: patient have been educated on Role of occupational therapy/rehabilitation, Transfers, Assistive device/technique, ADL, Precautions/Protocol, Functional Mobility, Activity pacing/Energy conservation, Home Management, Balance, Recommendations and Discharge planning and verbalizes understanding. Patient status, treatment, and mobility recommendations discussed with nursing. Pt returned to bed with alarm set, call burris within reach, and all needs met. Assessment: Pt has been seen for occupational therapy evaluation. Dalia Mcfarlane was readmitted s/p ECTOR/BSO 2/2 ileus. Pt appears to be in better spirits today and reports improvement in nausea andabdominal pain. At the start of the session, she had a BM and performed toilet routine with supervision. Pt was slightly dizzy towards end of activity but it resolved quickly once seated and BP was stable. She attributed dizziness due to recent inactivity, anticipate it may resolve with increased activity, including ambulating in the hallway and sitting up in the chair. Pt is nearing her functional baseline as symptoms resolve and she is encouraged to continue mobilizing with staff while admitted. She was encouraged to incorporate energy conservation techniques, such as pacing and taking restbreaks, once home. Pt has no functional concerns at this time. Pt has support from and anticipate that she will return home with supervision once medically ready. Do not anticipate further OTneeds while hospitalized. Equipment needs at discharge: none Anticipated Discharge Disposition (OT): home with supervision Other Recommendations: ?? Utilize upright chair position using bed features or transfer to recliner chair as appropriate with 1x assist and FWW, ambulate as tolerated ?? Encourage participation in ADL's by providing set up A on tray table and physical assist only asneeded Other Recommendations: No other consults recommended at this time Plan: OT: Therapy Frequency (OT): evaluation only Total Minutes, Occupational Therapy: 25 (low complexity eval) 2017 OT Evaluation Code Rationale: ?? Diagnosis & Pertinent Co-Morbidities affecting Plan of Care: see PMHx ?? Occupational Profile & Client History: Brief Expanded Extensive x ?? Assessment of Occupational Performance: 1-3 performance deficits x 3-5 performance deficits 5 + performance deficits ?? Clinical Decision Making: Low Moderate High x Clinical decision making of moderate complexity using standardized patient assessment instrument and measurable assessment of functional outcome. Mary Rose OTR/L Pager [phone] Occupational Therapy Rehabilitation Department * Yessica Jacobs MD - 11/25/2020 6:15 AM EDT Images from the original note were not included. Gynecologic Oncology Progress Note Dalia Mcfarlane is a 65 y.o. woman whose PMH is significant for fibromyalgia and HTN who is post operative day # 6 s/p ECTOR/BSO for high grade ovarian cancer, now hospital day #3 readmitted with ileus. Interval Events: - No acute events overnight Subjective: Dalia reports feeling much better than yesterday, feels her pain is well- controlled at 5-6/10. Reports nausea has resolved. Reports she has passed lots of flatus, no BM yet. No issues voiding. Has ambulated to and from bathroom. Eager to go home as soon as she is able. She denies fever, chills, chest pain, shortness of breath, leg pain and swelling. Physical Exam: Last value Range last 8 hrs Temperature Temp: 36.9 ??C (98.4 ??F) Temp: [36.8 ??C (98.2 ??F)-36.9 ??C (98.4 ??F)] Heart Rate Heart Rate: (!) 102 Heart Rate: -- Blood Pressure BP: 145/80 BP: (140-145)/(79-80) Respiratory Rate Resp: 16 Resp: [16] SpO2 SpO2: 94 % SpO2: [88 %-97 %] Intake/Output Summary (Last 24 hours) at 11/25/2020 0615 Last data filed at 11/25/2020 0222 Gross per 24 hour Intake 1358 ml Output 1950 ml Net -592 ml I/O this shift: In: 480 [P.O.:480] Out: 900 [Urine:900] Body mass index is 27.99 kg/m??. Patient Vitals for the past 168 hrs: Weight 11/24/20 0639 76.3 kg (168 lb 3.4 oz) 11/23/20 1944 75.1 kg (165 lb 9.1 oz) Gen: Resting comfortably in bed. NAD. Hard of hearing. Neuro: Alert and oriented. Cardiac: RRR. No murmurs, rubs, or gallops. Pulm: CTAB. No wheezes, rales, or rhonci. Abd: +normoactive BS. Soft. Mild tenderness to palpation of RLQ, otherwise non- tender. No rebound or guarding. Incision: VMLI with subcuticular closure. C/D/I. No surrounding drainage, erythema, or induration. Mild resolving ecchymosis at middle aspect of incision. Extremities: No lower extremity edema. SCDs on and running. Laboratory (Last 24 Hours): Recent Labs 11/20/20 0835 WBC 10.3* HGB 10.8* HCT 32.0* PLATELET 255 Recent Labs 11/24/20 0409 11/20/20 0835 NA 142 138 K 3.5 4.1 CL 107 104 CO2 29 23 BUN 7* 7* CREATININE 0.61* 0.78 MAGNESIUM 0.81 0.75 PHOS 3.1 -- Final Pathology Pending Assessment and Plan Dalia Mcfarlane is a 65 y.o. female with a past medical history significant for HTN and fibromyalgia who is s/p ECTOR/BSO for high grade ovarian cancer, now readmitted with ileus. Reports significant improvement since yesterday Please see systems based assessment below. Neuro: Rates significant improvement in discomfort since yesterday (still rates it 5-08/20). Alert and oriented. -- Ordered for PO oxycodone (has not taken in setting of nausea), home gabapentin. --Plan to d/c OFFSET MACHINE OPERATOR if tolerating clears Cardiovascular: BP: (140-145)/(79-80) . BP improved s/p resuming lisinopril. Hemodynamically stable, no evidence of bleeding. --Continue home lisinopril Heme: Mild postoperative anemia, Hgb 12.9>10.9 with dilution from aggressive IV hydration at OSH, stable from postoperative Hgb 10.8 on discharge after EBL 500 mL. No signs or symptoms of anemia. --CBC PRN Pulmonary: Adequate spO2 on room air. No concerns --Encourage incentive spirometry GI: Nauseous, no emesis. Transitioned back to sips and chips yesterday. Now with nausea well-controlled, will transition back to clears. --Advance diet as tolerated. --Zofran/compazine --One-time dulcolax suppository ordered : Voiding spontaneously. --Monitor intake and output --Consider placement of puga PRN for retention FEK:IVF: LR @100mL/hr, now transitioning to clear liquid diet. --HLIV when tolerating adequate PO intake Onc: Frozen section revealed high-grade carcinoma. Final pathology report pending. --Follow up in clinic 12/03/[address] Francois Endocrine: No acute Issues ID: Afebrile. No leukocytosis. Lactate normalized at OSH with IV fluid resuscitation, suspect component of intravascular volume depletion. no current concerns for infectious etiologies but will continue to monitor closely. -- Repeat CBC PRN?? Prophylaxis: --40 mg nightly SC Lovenox --Incentive spirometry --SCDs MSK: Will consult PT/OT to encourage strengthening and continued exercise despite hospitalization -- PT/OT consultation Dispo: Continues to require inpatient management; possible discharge home tomorrow Code Status: Full Code Yessica Jacobs MD PGY2 11/25/2020 Associated attestation - Aletha Francois MD - 11/25/2020 6:46 PM EDT I have seen and examined the patient, providing byrnes components as outlined below. I have reviewed the resident???s above note; my evaluation of the patient is below: Patient reports feeling better today with bowel movement, flatus and tolerated some diet. Patient ambulated in hallway and is voiding well. ABD: soft, NT Imp: agree plan advance to clears, continue lovenox. D/c planning for tomorrow. I personally spent a total of 25 minute visit in counseling and coordinating care for Dalia Mcfarlane. We discussed the plan and rationale for ongoing surveillance. Aletha Francois MD * Debra Alvarez OT - 11/24/2020 2:34 PM EDT 11/24/20 1315 Evaluation & Treatment Document Type contact Total Minutes, Occupational Therapy 0 Comment, Session Not Performed Attempted to see Pt for OT evaluation. Pt declined evaluation due tofatigue. Pt educated on importance of participation in therapy activity and was agreeable to evaluation tomorrow. Please contact this telegraphic typewriter installer with any questions or concerns. * Laura Luna, PT - 11/24/2020 1:24 PM EDT 11/24/20 1324 Evaluation & Treatment Document Type contact Total Minutes, Physical Therapy 0 Comment, Session Not Performed (Pt declined evaluation present) Pt tired, getting nausea meds. Has been to the bathroom with assist. PT agreed to work with therapies tomorrow. Anticipated Equipment Needs at Discharge (PT) other (see comments) Anticipated Discharge Disposition (PT) home with home health;home with supervision Pt has a FWW at home, was managing with support of her , did not have home services. Pain managed with Fentanyl OFFSET MACHINE OPERATOR. Awaiting ROBF * Mary Rose OT - 11/24/2020 8:52 AM EDT Occupational Therapy Note Document Type: contact Total Minutes, Occupational Therapy: 0 Reason: OT order received and chart reviewed. Attempted to see patient for evaluation however she declined 2/2 nausea and RLQ pain. OT will defer and attempt to see as able/when appropriate. Pager: [phone] Mary Rose OT 11/24/2020 Occupational Therapy Rehabilitation Department * Yessica Jacobs MD - 11/24/2020 6:39 AM EDT Gynecologic Oncology Progress Note Dalia Mcfarlane is a 65 y.o. woman whose PMH is significant for fibromyalgia and HTN who is post operative day # 5 s/p ECTOR/BSO for high grade ovarian cancer, now hospital day #2 readmitted with ileus. Interval Events: - See Dr. Stanley's interval progress note - Per RN, slept most of the night Subjective: Dalia continues to report nausea this morning, denies emesis. Reports fentanyl OFFSET MACHINE OPERATOR decreased abdominal pain from 9/10 to 8/10. Reports she has started passing flatus since arrival, no BM yet. No issues voiding. She denies fever, chills, chest pain, shortness of breath, leg pain and swelling. Physical Exam: Last value Range last 8 hrs Temperature Temp: 36.7 ??C (98.1 ??F) Temp: [36.7 ??C (98.1 ??F)-37 ??C (98.6 ??F)] Heart Rate Heart Rate: (!) 102 Heart Rate: [99-102] Blood Pressure BP: (!) 166/97 BP: (138-166)/(66-97) Respiratory Rate Resp: 17 Resp: [16-17] SpO2 SpO2: 97 % SpO2: [94 %-97 %] Intake/Output Summary (Last 24 hours) at 11/24/2020 0639 Last data filed at 11/24/2020 0525 Gross per 24 hour Intake 986 ml Output 200 ml Net 786 ml I/O this shift: In: 986 [I.V.:986] Out: 200 [Urine:200] Body mass index is 27.99 kg/m??. Patient Vitals for the past 168 hrs: Weight 11/24/20 0639 76.3 kg (168 lb 3.4 oz) 11/23/20 1944 75.1 kg (165 lb 9.1 oz) 1x 200mL void recorded overnight Total Intake: +786 mL Gen: Resting comfortably in bed. NAD. Hard of hearing. Neuro: Alert and oriented. Cardiac: RRR. No murmurs, rubs, or gallops. Pulm: CTAB. No wheezes, rales, or rhonci. Abd: +normoactive BS. Soft. Non tender. No rebound or guarding. Incision: VMLI with subcuticular closure. C/D/I. No surrounding drainage, erythema, or induration. Mild ecchymosis at middle aspect of incision.. Extremities: No lower extremity edema. SCDs on and running. Laboratory (Last 24 Hours): Recent Labs 11/20/20 0835 WBC 10.3* HGB 10.8* HCT 32.0* PLATELET 255 Recent Labs 11/24/20 0409 11/20/20 0835 NA 142 138 K 3.5 4.1 CL 107 104 CO2 29 23 BUN 7* 7* CREATININE 0.61* 0.78 MAGNESIUM 0.81 0.75 PHOS 3.1 -- Final Pathology Pending Assessment and Plan Dalia Mcfarlane is a 65 y.o. female with a past medical history significant for HTN and fibromyalgia who is POD#5 from ECTOR/BSO for high grade ovarian cancer, now HD#2 with ileus. Slept for most of the night but continues to report significant nausea and pain. Please see systems based assessment below. Neuro: Rates pain 8/10 with fentanyl OFFSET MACHINE OPERATOR. Alert and oriented. --Will trial PO oxycodone and home gabapentin this morning with plan to d/c OFFSET MACHINE OPERATOR if adequate pain control Cardiovascular: BP: (138-166)/(66-97) . Home lisinopril restarted overnight for HTN. Hemodynamically stable, no evidence of bleeding. Heme: Mild postoperative anemia, Hgb 12.9>10.9 with dilution from aggressive IV hydration at OSH, stable from postoperative Hgb 10.8 on discharge after EBL 500 mL. No signs or symptoms of anemia. --CBC PRN Pulmonary: Adequate spO2 on room air. No concerns --Encourage incentive spirometry GI: Nauseous, no emesis. Will transition to clears this morning. --Advance diet as tolerated. --Zofran/compazine/Pericolace/Miralax/simethicone/glycerine suppository prn. : Voiding spontaneously. --Monitor intake and output --Consider placement of puga PRN for retention FEK:IVF: LR @100mL/hr, now transitioning to clear liquid diet. --HLIV when tolerating adequate PO intake Onc: Frozen section revealed high-grade carcinoma. Final pathology report pending. --Follow up in clinic 12/03/[address] Francois Endocrine: No acute Issues ID: Afebrile. No leukocytosis. Lactate normalized at OSH with IV fluid resuscitation, suspect component of intravascular volume depletion. no current concerns for infectious etiologies but will continue to monitor closely. -- Repeat CBC PRN?? Prophylaxis: --40 mg nightly SC Lovenox --Incentive spirometry --SCDs MSK: Will consult PT/OT to encourage strengthening and continued exercise despite hospitalization -- PT/OT consultation Dispo: Continues to require inpatient management. Code Status: Full Code Yessica Jacobs MD PGY2 11/24/2020 Associated attestation - Aletha Francois MD - 11/25/2020 7:01 PM EDT I have seen and examined the patient, providing byrnes components as outlined below. I have reviewed the resident???s above note; my evaluation of the patient is below: 65 year old with history pelvic mass, urinary retention and fibromyalgia hypertension who presents with nausea, vomiting, abdominal pain and dehydration. As noted, patient d/c 11/23 and developed acute onset pain RLQ and profuse emesis. Patient presented to local ED where she had CT scan showed probable ileus, no collections and post op changes. Normal WBC with initial elevation in lactate felt shweta due to dehydration. Patient transferred to [facility] for further management. On exam, normal vitals, patient sleeping ABD: mild distention and tenderness mild R> L, no peritoneal signs Ext; no edema CT images personally reviewed withRadiology and labs reviewed. Imp: high grade ovarian cancer, S/P hyst BSO and staging, nausea emesis and abdominal pain with dehydration, probable ileus Plan: IV fluids support, antiemetics continue lovenox , conservative bowel regimen Have added gabapentin for her fibromyalgia pain which was useful in managing her symptoms post op, resumed antihypertensive medications D/w patient and her , Zaheer at bedside. Aletha Francois MD I personally spent a total of 50 minute visit in counseling and coordinating care for Dalia Mcfarlane. We discussed the plan and rationale for ongoing surveillance. Aletha Francois MD * Aletha Francois MD - 11/24/2020 4:41 AM EDT Interval Progress Note: S: Dalia states her pain is improved in control overnight with the Fentanyl OFFSET MACHINE OPERATOR, now rated at 4/10 - she has been sleeping since around midnight. Reporting she now has a headache which she thinks is from the IV Fentanyl. She has minimal nausea off and on and has not had any emesis since she got here around 9 pm. Pain is incisional. O: BP (!) 166/97 (BP Location (NBP): Right arm, Patient Position: Lying) Pulse (!) 102 Temp 36.7 ??C (98.1 ??F) (Oral) Resp 17 Wt 75.1 kg (165 lb 9.1 oz) SpO2 97% BMI 27.55 kg/m?? Gen: Resting in bed with eyes closed, appears sleepy and comfortable, pleasant Abdomen: Soft, moderately tender over right lower abdomen, nondistended, otherwise nontender Incision: C/D/I, no surrounding erythema, stable old evolved bruise Ext: Nontender, no edema A: 65 y.o. woman now POD#5 s/p total abdominal hysterectomy, bilateral salpingo- oophorectomy, bilateral pelvic and para-aortic lymph node sampling, omentectomy with new diagnosis of clear cell ovarian cancer who now presents in transfer to [facility] with abdominal pain and nausea concerning for postoperative ileus No emesis and mild nausea overnight, vitals stable aside from moderate hypertension in setting of holding home meds. Voiding spontaneously. Pain control improved over course of evening with Fentanyl OFFSET MACHINE OPERATOR, however has been sleeping and forgets to push the OFFSET MACHINE OPERATOR button. Discussed with Dr. Francois improved symptoms and improved pain control, will trial transition to PO medications and clears this am Will resume home Lisinopril given moderate range HTN Continue to monitor closely for pain control and recurrent nausea/vomiting Kendal Stanley MD PGY-3 11/24/2020 Aletha Francois MD documented in this encounter H&P Notes * Aletha Francois MD - 11/23/2020 9:23 PM EDT Gynecologic Oncology H & P Problem List: Active Hospital Problems Diagnosis ??? Ileus, postoperative ??? RLQ abdominal pain ??? Ileus ??? Pelvic mass Resolved Hospital Problems No resolved problems to display. There are no active non-hospital problems to display for this patient. Reason for Visit: Dalia is a 65 y.o. Female with PMH fibromyalgia, HTN who is post-operative day# 4 s/p total abdominal hysterectomy, bilateral salpingo-oophorectomy, bilateral pelvic and para-aortic lymph node sampling, omentectomy with new diagnosis of clear cell ovarian cancer who now presents in transfer to [facility] with abdominal pain and nausea concerning for postoperative ileus. HPI: Dalia was discharged 11/21/20 after her surgery and was initially doing well at home. She states her pain was initially adequately controlled on PO medications. She had been able to pass flatusbut had not had a bowel movement since surgery. She was tolerating a regular diet and was eating up a storm; everything I could get my hands on. Her last solid food intake was 11/22 evening and was a large hamburger. She states after that meal she went to bed and was comfortable at that time. She then presented to [facility] following the acute onset of intractable nausea and vomiting around midnight, worsening until 3:30 am on 11/23. She awoke with abdominal pain and severe nausea. She states her lower abdominal pain at this time was worse on the right side and exacerbated by movement. She reports she soaked through 5 towels with large volume uncontrolled emesis. She tried taking her homeoxycodone for the pain which did not touch it. Given the sudden onset of her symptoms, she presented with her to [facility] for evaluation at 5:30 am. There, vitals were stable, she was afebrile,with no leukocytosis (WBC 7), lactate 1.9 which downtrended to 0.8 after IV hydration, hemoglobin 12.9 on admission and stable with dilutional component at 10.9 after several hours of IV hydration. She received several doses of IV Dilaudid and IV morphine throughout the day for pain control, along with IV Zofran for pain control. Exam notable for intact incision, moderate RLQ and generalized abdominal tenderness. CT imaging with a small fluid collection in right lower pelvis without surrounding induration, significant stool burden in the colon. Dr. Alvarez ED physician discussed with Dr. Nadine Joseph, on-call Gynecologic Oncologist who reviewed the imaging and recommended transfer to [facility] for further management of possible postoperative ileus versus less likely postoperative complication. On admission, Dalia continues to endorse 7/10 lower abdominal pain described as cramping, aching along with continued nausea and vomiting. She has received IV pain medicaiton which she states has helped her symptoms. She denies fever, chills, chest pain, SOB, leg pain. Gynecologic Oncology History: -11/06/20 Acute onset abdominal pain with associated nausea and presented to ED [facility]. Patient reports prior episode 10 years earlier and diagnosis with UTI and treated with antibiotic. CT scan showed pelvic mass. Patient had imaging and puga catheter placed and d/c home.?? -CA-125: 19.6 / CEA 0.8 / CA 19-9: 17.1 -11/19/20 exploratory laparotomy, total abdominal hysterectomy, bilateral salpingo-oophorectomy, b/l pelvic and para-aortic lymph node sampling, omentectomy, staging biopsies, ebl 500mL Review of Systems: Negative other than noted in HPI. Past Medical and Surgical History: Past Medical History: Diagnosis Date ??? Chronic pain in abdomen ??? High blood pressure controlled with medication ??? Motion sickness pt states car sickness Past Surgical History: Procedure Laterality Date ??? PRO JAZIEL SALP-OOPH W/OMENTECT, ECTOR, RAD DISSECT N/A 11/19/2020 @HYSTERECTOMY, ECTOR, BSO, DEBULKING (WRVU 34.13) performed by Aletha Francois MD at [facility] MAIN OR ??? PRO REMOVAL, ABDOMEN LYMPH NODE, STAGING N/A 11/19/2020 @LYMPHADENECTOMY, LIMITED FOR STAGING, RETROPERITONEAL (WRVU 11.38) performed by Aletha Francois MD [facility] MAIN OR Prior To Admission Medications: Medications Prior to Admission Medication Sig Dispense Refill Last Dose ??? acetaminophen (Tylenol) 325 mg Tablet Take 2 tablets by mouth every 6 hours. 30 tablet 1 ??? oxyCODONE (Roxicodone) 5 mg Tablet Take 1-2 tablets by mouth every 3 hours as needed for Pain. 12 tablet 0 ??? ibuprofen (Advil) 600 mg Tablet Take 1 tablet by mouth every 6 hours. 30 tablet 12 ??? enoxaparin (Lovenox) 40 mg/0.4 mL Syringe [...] long car rides maybe 2x per year Allergies: No Known Allergies Family History: No family history on file. Social History and Habits: Social History Socioeconomic History ??? Marital status: Spouse name: Not on file ??? Number of children: Not on file ??? Years of education: Not on file ??? Highest education level: Not on file Occupational History ??? Not on file Tobacco Use ??? Smoking status: Never Smoker ??? Smokeless tobacco: Never Used Vaping Use ??? Vaping Use: Never used Substance and Sexual Activity ??? Alcohol use: Never ??? Drug use: Never ??? Sexual activity: Not on file Other Topics Concern ??? Not on file Social History Narrative ??? Not on file Social Determinants of Health Financial Resource Strain: ??? Difficulty of Paying Living Expenses: Not on file Food Insecurity: ??? Worried About Running Out of Food in the Last Year: Not on file ??? Ran Out of Food in the Last Year: Not on file Transportation Needs: ??? Lack of Transportation (Medical): Not on file ??? Lack of Transportation (Non-Medical): Not on file Physical Activity: ??? Days of Exercise per Week: Not on file ??? Minutes of Exercise per Session: Not on file Physical Exam: Last Set of Vitals: Last value Range last 24 hrs Temperature Temp: 37 ??C (98.6 ??F) Temp: [37 ??C (98.6 ??F)-37.4 ??C (99.3 ??F)] Heart Rate Heart Rate: 99 Heart Rate: [99-106] Blood Pressure BP: 138/66 BP: (138-147)/(66-76) Respiratory Rate Resp: 16 Resp: [16] SpO2 SpO2: 94 % SpO2: [89 %-95 %] Physical Exam Gen: Lying in bed, pleasant, alert, conversant, hard of hearing Heart: RRR, no murmurs, rubs Lungs: CTAB, no wheezes, crackles, rales Abd: +BS, active, somewhat high pitched in all four quadrants, otherwise soft, very mildly distended, no rebound, voluntary guarding in RLQ, otherwise no guarding, no percussion tenderness Incision: VMLI well-approximated, intact, no surrounding erythema, mild mid- incisional old ecchymosis with purplish discoloration, no fluctuance, induration Ext: Nontender, no edema, SCDs not yet in place but at bedside Laboratory (11/23/2020 @ [facility] @2:35) WBC 7.47 Hgb 12.6/Hct 38.4 ANC 6.11 Lactate 1.9, repeat 0.8 UA trace protein, small blood, no blood, LE Creatinine 1.72 Pertinent Radiographic/Diagnostic Results: I have independently visualized the following studies: -CT A/P 11/23/20: 2nd read: FINDINGS: ?? Poker Supervisor Images: Noncontributory. ?? Lower chest: There is a curvilinear band of atelectasis within the right lower lobe. ?? Liver: Along the ventral and superior margin of the liver is a fluid and air containing lentiform collection measuring approximately 10.8 x 1.9 cm in maximal dimension. ?? Bile ducts: Normal. ?? Gallbladder: Normal. ?? Pancreas: Normal. ?? Spleen: There is trace perisplenic ascites. The spleen enhances and images normally. ?? Adrenals: Normal. ?? Kidneys: Normal. ?? Urinary Bladder: The urinary bladder is under distended. There is a locule of air within the urinary bladder. There is diffuse bladder wall thickening. There is perivesicular fat stranding. ?? Vasculature: The aorta is normal in course and caliber. There is mild atherosclerotic calcification of the abdominal aorta and its branch vessels. The inferior vena cava is normal in course and caliber. The superior mesenteric, splenic, and portal veins are patent. The hepatic veins are patent. ?? Lymph Nodes: There are no pathologically enlarged lymph nodes. ?? Bowel: Limited evaluation the distal esophagus is unremarkable. The stomach is under distended. The duodenum is normal in course and caliber. There are prominent segments of small bowel in the left hemiabdomen, measuring up to 2.6 cm in diameter with pseudocysts transition to nondilated segments more distally. There is no focal transition point. There is adjacent mesenteric edema and perienteric fat stranding surrounding the segments in the left upper quadrant. The ileocecal valve is within normal limits. There is a moderate volume of stool throughout the course of the large bowel. ?? Peritoneum and mesentery: There are a few locules of pneumoperitoneum. There are postsurgical changes along the pelvic sidewalls bilaterally. There are locules of air within the extraperitoneal space along the left pelvic sidewall is well located more inferiorly ventrally. Along the right pelvic sidewall there is a 3.9 x 2.5 cm heterogeneous collection with dependent hyperattenuating material. There is no active extravasation. There is edema within the presacral space. ?? Abdominal wall: There is a vertically oriented midline incision. There are a few locules of air within the abdominal wall, particularly inferiorly within the left lower quadrant. ?? Reproductive organs: The uterus is surgically absent. ?? Osseous structures: There is a mild convex left scoliosis of the lumbar spine. There are degenerative changes of visualized spine with endplate sclerosis and osteophyte formation. 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 There are no suspicious osseous lesions. ?? IMPRESSION ?? 1. Prominent but nondilated segments of proximal small bowel with smooth transition to distal nondistended bowel segments, likely related to an ileus. Adjacent inflammatory changes within the proximal small bowel, likely related to a reactive enteritis. A developing small bowel obstruction is not excluded. 2. Lentiform air and fluid containing collection along the ventral margin of the liver may be related to postoperative change; superimposed abscess is not excluded. 3. Few locules of pneumoperitoneum, likely related to recent surgical intervention. 4. Postsurgical changes along the bilateral pelvic sidewalls. 3.9 x 2.5 cm heterogeneous collection along the right pelvic sidewall, likely related to a postoperative hematoma. No active extravasation. 5. Underdistended urinary bladder with adjacent inflammatory changes, likely related to postoperative change. Superimposed cystitis is not excluded. 6. Locule of air within the urinary bladder, likely related to recent instrumentation. Assessment/Plan: Dalia is a 65 yo female with PMH fibromyalgia, HTN now POD#4 s/p ex lap, ECTOR, BSO, bilateral PPALND, and omentectomy for advanced likely clear cell ovarian cancer who presents in transfer with RLQ pain and nausea along with CT findings consistent with post-operative ileus. At OSH, initial evidence of hypovolemia with elevated lactate to 1.9 which normalized to 0.8 with IV fluidhydration. Lower concern for sepsis given stable vital signs, normal white count, absence of fever,normal mentation, and evidence of adequate end-organ perfusion on exam. Will continue to monitor closely given findings of possible right-sided pelvic fluid collection for evolving postoperative abscess but clinical suspicion for this remains low. On admission, she remains afebrile with continued nausea, emesis and generalized abdominal discomfort which is clinically consistent with suspected postoperative ileus. Given severity of nausea/vomiting will plan to treat with complete NPO at this time and hold oral medications, treat pain with IV pain medications and consider advancing diet to clears and PO medications versus liquid medications as tolerated in AM. Discussed with patient findings on CT AP re-read consistent with likely ileus, typical course and treatment including NPO with bowelrest and IV fluid hydration, pain control and administration of IV antiemetics. GI: As above, continued nausea and emesis consistent with CT findings concern for ileus. Prior elevated lactate to 1.9 Conservative management as stomach is not distended. Would consider NG tube for decompression if unable to control emesis with IV medications. -NPO -IV antiemetics with PRN prochlorperazine, lorazepam, ondansetron -No supps at this time, will add on PRN Ducolax suppositories verus enemas versus PO bowel medications pending clinical course Neuro: Holding oral narcotics in setting of NPO. Plan IV Fentanyl OFFSET MACHINE OPERATOR as patient did not receive adequate pain control from hydromorphone in her immediate post- operative period on prior admission. -- IV fentanyl 50 mcg x3PRN doses while awaiting OFFSET MACHINE OPERATOR -- Fentanyl OFFSET MACHINE OPERATOR ordered -- transition to PO pain meds (PO oxycodone, home gabapentin) when able to take adequate PO Heme: Mild postoperative anemia, Hgb 12.9>10.9 with dilution from aggressive IV hydration at OSH, stable from postoperative Hgb 10.8 on discharge after EBL 500 mL. No signs or symptoms of anemia. -- Repeat CBC PRN Cardiac/Heme: History of HTN, currently normotensive and hemodynamically stable -- Restart home lisinopril PRN Pulmonary: Adequate O2 sats without supplemental oxygen. -- supplemental O2 PRN to maintain saturation >92%. -- encourage incentive spirometry. Docket Specialist Onc: s/p cytoreduction on 11/19/20 for high grade clear cell ovarian cancer. Will plan to conservatively manage likely post-operative ileus and follow-up with Dr. Francois as outpt with final pathology. Genitourinary: -- strict I/Os -- Will consider placement of Puga catheter if unable to void or appears to be retaining Fluid/ Electrolytes: -- LR at 100mL/hour. -- Discontinue intravenous fluid when taking adequate PO ID: Afebrile. No leukocytosis. Lactate normalized at OSH with IV fluid resuscitation, suspect component of intravascular volume depletion. no current concerns for infectious etiologies but will continue to monitor closely. -- Repeat CBC PRN Prophylaxis: --40 mg nightly SC Lovenox --Incentive spirometry --SCDs MSK: Will consult PT/OT to encourage strengthening and continued exercise despite hospitalization -- PT/OT consultation Code: Full Code Disposition: Continues to require inpatient hospitalization. Admit to Gynecologic Oncology for management on her post-operative ileus. Discussed with Dr. Aletha Francois, attending Gynecologic Oncologist. Kendal Stanley MD PGY-3 11/23/2020 Gynecologic Oncology [id number] 65 year old with history pelvic mass, urinary retention and fibromyalgia who presents with nausea, vomiting, abdominal pain and dehydration. As noted, patient d/c 11/23 and developed acute onset pain RLQ and profuse emesis. Patient presented to local ED where she had CT scan showed probable ileus, no collections and post op changes. Normal WBC with initial elevation in lactate felt to be due to dehydration. Patient transferred to [facility] for further management. Aletha Francois MD documented in this encounter Miscellaneous Notes * Plan of Care - Elizabeth Sandhu RN - 11/26/2020 11:52 AM EDT OUTCOME EVALUATION NOTE: OUTCOME SUMMARY: Pt is POD 8 ECTOR-BSO. Incision open to air with dermabond. Complained of 8/10 abdominal pain, given PRN oxy with positive effect. No other complaints . IV sites removed prior to discharge. AVS provided to patient and questions answered. All belongings returned to patient. Patient discharge home by car with . PLAN MOVING FORWARD: Discharge home INDIVIDUALIZED FALL PREVENTION INTERVENTIONS: Patient-specific fall risk factors per assessment: [current deficits]: IV therapy, High fall risk Assistance [level of assistance required for transfers and ambulation]: SBA Supervision [direct monitoring required during toileting and ADLs]: Eyes on Surveillance [continuous indirect monitoring]: Umm, call burris in reach, room near nursing station Patient-specific fall prevention interventions for sensory deficits provided, if applicable: N/A CPG GOAL OUTCOME EVALUATION: * Plan of Care - Jen Adam RN - 11/26/2020 1:35 AM EDT ?? OUTCOME EVALUATION NOTE: ?? OUTCOME SUMMARY: Pt is POD 8 ECTOR-BSO, incision open to air with dermabond. VSS, afebrile. Denies chest pain, SOB. Continues to endorse pain to abdomen;Administered PRN tylenol and oxy with good effect. Pt rested between nursing care. Will continue to monitor. ?? PLAN MOVING FORWARD: -Monitor VS & labs -Pain management -Encourage ambulation -Manage nausea and pain -PT/OT following ?? INDIVIDUALIZED FALL PREVENTION INTERVENTIONS: ?? Patient-specific fall risk factors per assessment: [current deficits]: IV, medications, generalizedweakness, unfamiliar environment. ?? Assistance [level of assistance required for transfers and ambulation]: SBA ?? Supervision [direct monitoring required during toileting and ADLs]: Eyes on ?? Surveillance [continuous indirect monitoring]: Masimo, call burris in reach, room near nursing ?? Patient-specific fall prevention interventions for sensory deficits provided, if applicable: N/A ? CPG GOAL OUTCOME EVALUATION: ?? Problem: Bowel Motility Impaired (Surgery Nonspecified) Goal: Effective Bowel Elimination Outcome: Ongoing (Interventions Implemented as Appropriate) Problem: Pain (Surgery Nonspecified) Goal: Acceptable Pain Control Outcome: Ongoing (Interventions Implemented as Appropriate) Problem: Postoperative Nausea and Vomiting (Surgery Nonspecified) Goal: Nausea and Vomiting Relief Outcome: Ongoing (Interventions Implemented as Appropriate) * Plan of Care - Anabel Stearns RN - 11/25/2020 7:32 PM EDT OUTCOME EVALUATION NOTE: OUTCOME SUMMARY: Pt is POD 7 ECTOR-BSO, incision open to air with dermabond. VSS, afebrile. Denies chest pain, SOB. Endorses nausea in AM, administered PRN compazine with good effect. Dc'd OFFSET MACHINE OPERATOR pump today, c/o 7/10 abdominal pain. Administered PRN tylenol and oxy with fair effect. Dc'd maintenance fluids today. at bedside today. Seen by PT today, ambulated hallway. Pt rested between nursing care. Will continue to monitor. PLAN MOVING FORWARD: -Monitor VS & labs -Pain management -Encourage ambulation -Manage nausea and pain -PT/OT following INDIVIDUALIZED FALL PREVENTION INTERVENTIONS: Patient-specific fall risk factors per assessment: [current deficits]: IV, medications, generalizedweakness, unfamiliar environment. Assistance [level of assistance required for transfers and ambulation]: SBA Supervision [direct monitoring required during toileting and ADLs]: Eyes on Surveillance [continuous indirect monitoring]: Masimo, call burris in reach, room near nursing Patient-specific fall prevention interventions for sensory deficits provided, if applicable: N/A CPG GOAL OUTCOME EVALUATION: * Initial Assessments - Dionne Maurice RN - 11/25/2020 2:26 PM EDT Office of Care Management Initial Assessment Medical record reviewed. Plan of care and patient status discussed with direct care RN and/or Care Team in multidisciplinary rounds. Last COVID test: Lab Results Component Value Date [id number] Not Detected 11/23/2020 Present on Admission: ??? Pelvic mass ??? Ileus Patient has been admitted to a hospital within the last 30 days. post operative day #??6??s/p ECTOR/BSO for high grade ovarian cancer, readmission with ileus. Patient receiving hospital care under Inpatient status. Admission order reviewed. Primary Insurance on file: MEDICARE Secondary Insurance on file:@ Primary care provider on file: BAILEY Cannon [phone] Advance Directive on file and Code Status: Received, Attempt Cardiopulmonary Resuscitation - Inpatient Patient???s Functional Status:independent Living Situation: house, all needs met on the first floor, [address] [facility] [address] Supports: spouse Assessment: Patient with no apparent RNCM/SW needs at this time. No housing, transportation, insurance, resources concerns identified at this time. Supports in place to achieve a safe post-hospital transition. No identified barriers to accessing necessary care and/or follow-up after discharge. Plan: Patient to d/c to home via private car when medically ready. washing machine mechanic/Cardiac Surgeon will continue to follow patient???s progress and remain available if situation changes for coordination of care, psychosocial support and/or discharge planning. Office of Care Management Dionne Maurice, RN, [facility] Nurse [facility] Pager [phone] * Plan of Care - Donna Navas RN - 11/25/2020 4:12 AM EDT OUTCOME EVALUATION NOTE: OUTCOME SUMMARY: POD#6 ECTOR-BSO, PLND, Omenectomy PT here for postop ileus VSS on 1L NC overnight while resting Pain 8/10; managed with OFFSET MACHINE OPERATOR- fentanyl and shahriar. IV Tylenol per MAY Cont. IVF LR infusing at 100mL/hr per MAY Abd incision- PRODUCTION ARTIST CDI Denied nausea overnight PT resting between nursing care PLAN MOVING FORWARD: Monitor VS, Labs, I&O Pain Management PRN PT/OT INDIVIDUALIZED FALL PREVENTION INTERVENTIONS: Patient-specific fall risk factors per assessment: [current deficits]: IV Access, Secondary Diagnosis, Generalized Weakness Assistance [level of assistance required for transfers and ambulation]: SBA w FWW Supervision [direct monitoring required during toileting and ADLs]: Eyes-On Surveillance [continuous indirect monitoring]: Masimo, Purposeful Rounding, Call Burris Within Reach Patient-specific fall prevention interventions for sensory deficits provided, if applicable: CPG GOAL OUTCOME EVALUATION: * Plan of Care - Lulu Krueger RN - 11/24/2020 6:04 PM EDT OUTCOME EVALUATION NOTE: OUTCOME SUMMARY: Patient is POD#5 ECTOR/BSO, PLND and omentectomy. A&Ox4, VSS. Endorsing 7-10/10 pain managed withfentanyl OFFSET MACHINE OPERATOR and IV Tylenol, reminded to press button when . C/o nausea PRN Zofran given x2 and PRNcompazine given x1 with good effect. LR infusing at 100 mL/hr. Pt up to bathroom with Ax1 and FWW. Resting comfortably between care. PLAN MOVING FORWARD: Monitor VS, labs, I&Os Manage nausea & pain OFFSET MACHINE OPERATOR - fentanyl IVF Sips and chips PT/OT INDIVIDUALIZED FALL PREVENTION INTERVENTIONS: Patient-specific fall risk factors per assessment: [current deficits]: High fall risk - generalizedweakness pain, nausea, IV tubing Assistance [level of assistance required for transfers and ambulation]: AX1 w/ FWW Supervision [direct monitoring required during toileting and ADLs]: Hands on Surveillance [continuous indirect monitoring]: Purposeful hourly rounding, masimo, call burris withinreach, bed alarm on Patient-specific fall prevention interventions for sensory deficits provided, if applicable: [X] N/A CPG GOAL OUTCOME EVALUATION: * Plan of Care - Bonita Arthur RN - 11/24/2020 5:45 AM EDT OUTCOME SUMMARY: Pt is POD5 ex lap, ECTOR-BSO, PLND, and omentectomy. Dalia was admitted in transfer from [facility] for suspected Post op ileus, N/V and no BM since 11/19 with abd pain. She is A & O x3. 1L NC for desatsto high 80's. No c/o SOB, numbness/tingling. Pt reports 8-9/10 incisional pain (to the right of). LR infusing at 125cc/hrIv fentanyl 50mcg x 2 prn doses given with minimal relief. IV OFFSET MACHINE OPERATOR of fentanyl ordered and connected. Pt is attempting to sleep and does forget to use her OFFSET MACHINE OPERATOR button more frequently. She reports to MD that pain does feel better this AM. May transition for NPO to clears and startoral meds to see how this goes. Thus far, since admit, she has had no n/v. Midline incision healing, well approximated, PRODUCTION ARTIST. Lovenox dosed for AC and SCDs on BLE. Pt ambulated with 1 assist the BR with walker. Bed alarm on for safety. Pt resting between nursing care. Unable to start oral meds yet this AM as she had n/v. Given ondansetron, opened door of room for air circulation and ordered her a fan as she's hot. Unable to get OOB again this AM to void due to rekha/v. Remains in bed with bed alarm, IVF and OFFSET MACHINE OPERATOR. Used 19 doses with 19 attempts of OFFSET MACHINE OPERATOR. Needs encouraging to use for abdominal pain. PLAN MOVING FORWARD: Monitor labs, VS, I&O Pain nausea management NPO to clears this AM IVF Bowel meds Encourage OOB activity INDIVIDUALIZED FALL PREVENTION INTERVENTIONS: Patient-specific fall risk factors per assessment: [current deficits]: High fall risk - IV therapy,pain, hospital environment, generalized weakness Assistance [level of assistance required for transfers and ambulation]: Ax1 Supervision [direct monitoring required during toileting and ADLs]: Hands on Surveillance [continuous indirect monitoring]: Masimo, call burris within reach, bed alarm, room nearunit station, purposeful rounding Patient-specific fall prevention interventions for sensory deficits provided, if applicable: CPG GOAL OUTCOME EVALUATION: documented in this encounter Plan of Treatment Not on file documented as of this encounter Procedures Procedure Name Priority Date/Time Associated Diagnosis Comments HC PHOSPHORUS, SERUM Routine 11/24/2020 4:09 AM EDT HC MAGNESIUM, SERUM Routine 11/24/2020 4 :09 AM EDT HC VENIPUNCTURE Routine 11/24/2020 4:09 AM EDT RAPID COVID-19 PCR ([facility]) Routine 11/23/2020 9:26 PM EDT REQUEST FOR 2ND READ CT ABDOMEN AND PELVIS Routine 11/23/2020 4:25 PM EDT documented in this encounter Results * Phosphorus (11/24/2020 4:09 AM EDT) Phosphorus 3.1 2.5 - 4.5 mg/dL [facility] Blood 11/24/2020 4:09 AM EDT 11/24/2020 4:43 AM EDT Narrative Resulting Agency Comment Spec In Lab Aletha Francois MD CHEMISTRY ORDERABLES [facility] [place] [address] * (ABNORMAL) Basic Metabolic Panel (non-fasting) (11/24/2020 4:09 AM EDT) Glucose 101 65 - 199 mg/dL [facility] Comment:Diabetes: >=200 mg/d L plus symptoms Blood Urea Nitrogen 7(L) 8 - 18 mg/dL [facility] Creatinine 0.61(L) 0.70 - 1.20 mg/dL [facility] Sodium 142 135 - 145 mmol/L [facility] Potassium 3.5 3.5 - 5.0 mmol/L [facility] Comment: Please note: ??Patients with WBC >100,000 may have falsely elevated Potassium levels. ??For accurate Potassium quantification in these patients send serum separator tube (gold top) for subsequent determinations. ??Contact the Clinical Chemistry Laboratory if there are any questions. Chloride 107 98 - 107 mmol/L [facility] Carbon Dioxide 29 22 - 31 mmol/L [facility] Anion Gap 6 5 - 15 mmol/L [facility] Calcium 8.1(L) 8.5 - 10.5 mg/dL [facility] Est Glomerular [...] and symptoms in addition to eGFR. Blood 11/24/2020 4:09 AM EDT 11/24/2020 4:43 AM EDT Narrative Resulting Agency Comment Spec In Lab Aletha Francois MD CHEMISTRY ORDERABLES [facility] [place] [address] * Magnesium (11/24/2020 4:09 AM EDT) Pathologist [facility] [place] Magnesium 0.81 0.69 - 1.07 mmol/L [facility] Blood 11/24/2020 4:09 AM EDT 11/24/2020 4:43 AM EDT Narrative Resulting Agency Comment Spec In Lab Aletha Francois MD CHEMISTRY ORDERABLES Performing Organization Address [facility] Co de Phone Number [facility] [place] [address] * COVID-19 PCR (11/23/2020 9:26 PM EDT) Pathologist [facility] [place] SARS-CoV-2 RNA (Rapid) Not Detected Not Detected [facility] Comment: This result should be interpreted in combination with the clinical observations, patient history and epidemiological information. For testing of asymptomatic individuals, assay performance characteristics and clinical utility have not been evaluated. Testing for SARS-CoV-2 (Severe acute respiratory syndrome coronavirus 2, formerly known as 2019 novel coronavirus or 2019-nCoV) to aid in the diagnosis of COVID-19 is performed using the Simplexa COVID-19 Direct Assay by [facility] as authorized by the FDA issued Emergency Use Authorization (EUA). This assay is intended for In-vitro Diagnostic (IVD) use with nasopharyngeal swabs collected from individuals meeting the CDC criteria for testing. The assay is performed based on the instructions for use and additional guidance provided by the FDA. Testing is performed in the Microbiology Laboratory within the Department of Pathology and Laboratory Medicine at [facility], certified under the Clinical Laboratory Improvement Amendments of 1988 (CLIA), 42 U.S.C. section 263a, to perform high complexity tests. Assay performance has been verified according to clinical laboratory regulatory requirements. Test results are provided above. A result of Not Detected indicates that the viral RNA target is not present but does not preclude SARS-CoV-2 infection. False negative results may occur if a specimen is improperly collected, transported or handled; if amplification inhibitors are present; or if inadequate numbers of viral particles are present in the specimen. A result of Detected suggests a current or recent infection and the patient is presumed to be infected. Positive and negative predictive values for this test are highly dependent on disease prevalence. A result of Invalid indicates the inability to conclusively determine the presence or absence of SARS-CoV-2 RNA in the sample which can be due to a variety of factors. Recollection is recommended in the case of an invalid result. CDC COVID-19 criteria for testing on human specimens and clinical management guidance information are available at the CDC Coronavirus Disease 2019 (COVID-19) webpage under Information for Healthcare Professionals (https://www.cdc.gov/coronavirus/2019-ncov/hcp/index.html). Additional information about this and other EUA tests can be found in provider and patient fact sheets at the following FDA website: https://www.fda.gov/medical-devices/tcwzdbdibzs-aydxlbs-2085-sglff-36-bkdemjqix- use-a lmxbliuqxehrz-eivuftp-neoatoe/mdbbk-qzclkmxuvci-lxud SARS-CoV-2 Source [employer] MA R[facility] Nasopharyngeal Swab 11/24/19 9:26 PM EDT 11/23/2020 10:52 PM EDT Comment:Symptoms->Surveillan ce Narrative Resulting Agency Comment Spec In Lab Aletha Francois MD MICROBIOLOGY - GENER AL ORDERABLES Performing Organization Address City/State/[facility] Co de Phone Number [facility] [place] [address] * Request For 2nd Read CT Abdomen [...] who have questions please contact the health customer care team coach that requested your imaging first. ? Narrative 11/23/2020 4:51 PM EDT EXAMINATION: * [...] outside imaging study. ?? * ??Sending Institution [facility] * ??Date of exam [id number] * ??I believe a reinterpretation of this exam may alter care of Patient. Yes TECHNIQUE: CT of the abdomen and pelvis with intravenous contrast was performed at [facility] on November 23, 2020. ??Helical CT images of the abdomen and pelvis were obtained with intravenous contrast. ??Per report, the patient received 100 mL Omnipaque 350 intravenous contrast. ??Oral contrast was not administered. COMPARISON: Comparison is made to outside CT of the abdomen and pelvis dated November 06, 2020. FINDINGS: Poker Supervisor Images: Noncontributory. Lower chest: There is a [...] sclerosis and osteophyte formation. 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 ??There [...] of outside imaging study. * Sending Institution [facility] * Date of exam 20201123 * I believe a reinterpretation of this exam may alter care of Patient.Yes TECHNIQUE: CT of the abdomen and pelvis with intravenous contrast wasperformed at [facility] on November 23, 2020. Helical CTimages of the abdomen and pelvis were obtained with intravenous contrast. Perreport, the patient received 100 mL Omnipaque 350 intravenous contrast. Oralcontrast was not administered. COMPARISON: Comparison is made to outside CT of the abdomen and pelvisdated November 06, 2020. FINDINGS: Poker Supervisor Images: Noncontributory. Lower chest: There is a [...] endplate sclerosisand osteophyte formation. There is a Stephens's disease configuration to thelumbar spine. There are [...] patients who have questions please contactthe health customer care team coach that requested your imaging first. Aletha Francois MD IMG OUTSIDE INTERPRE TATION ORDERABLES documented in this encounter Visit Diagnoses Diagnosis Pelvic mass Abdominal or pelvic swelling, mass or lump, unspecified site Ileus, postoperative Other digestive system complications RLQ abdominal pain Abdominal pain, right lower quadrant Ileus Paralytic ileus documented in this encounter Admitting Diagnoses Diagnosis Ileus Paralytic ileus documented in this encounter Administered Medications Inactive Administered Medications - up to 3 most recent administrations Medication Order MAR Action Action Date Dose Rate Site acetaminophen (Ofirmev) (1000 mg/100 mL) infusion 1,000 mg 1,000 mg, Intravenous, at 400 mL/hr, Administer over 15 Minutes, EVERY 8 HOURS SCHEDULED, 3 doses, First dose on Mon11/24/20 at 0945, Last dose on Mon11/24/20 at 2200, Maximum dose of acetaminophen is 4000 mg from all sources in 24 hours. When ordered for pain, acetaminophen should be given even when other ordered pain medications are indicated. , Routine, Is ketorolac (Toradol) IV contraindicated? Yes, Can this patient tolerate oral medications or suppositories? No Given 11/24/2020 10:21 PM EDT 1,000 mg 400 mL/hr Given 11/24/2020 1:54 PM EDT 1,000 mg 400 mL/hr Given 11/24/2020 11:00 AM EDT 1,000 mg 400 mL/hr acetaminophen (Tylenol) tablet 650 mg 650 mg, Oral, EVERY 6 HOURS PRN, Starting on Mon11/25/20 at 0600, Until Ange 11/26/20 at 1358, Pain, Maximum dose of acetaminophen is 4000 mg from all sources in 24 hours. When ordered for pain, acetaminophen should be given even when other ordered pain medications are indicated. , Routine Given 11/26/2020 3:53 AM EDT 650 mg Given 11/25/2020 8:36 PM EDT 650 mg Given 11/25/2020 2:27 PM EDT 650 mg bisacodyL (Dulcolax) suppository 10 mg 10 mg, Rectal, ONCE, 1 dose, On Mon11/25/20 at 0815, Routine Given 11/25/2020 8:29 AM EDT 10 mg enoxaparin (Lovenox) (40 mg/0.4 mL) subcutaneous injection 40 mg 40 mg, Subcutaneous, NIGHTLY, First dose on Mon11/23/20 at 2115, Until Discontinued, Routine Given 11/25/2020 8:37 PM EDT 40 mg Given 11/24/2020 8:30 PM EDT 40 mg Given 11/23/2020 10:31 PM EDT 40 mg fentaNYL (PF) (50 mcg/mL) injection 50 mcg 50 mcg, Intravenous, EVERY 30 MIN PRN, 3 doses, Starting on Mon11/23/20 at 2024, Until Mon11/25/20 at 1008, Pain, Routine Given 11/23/2020 10:41 PM EDT 50 mcg Given 11/23/2020 10:07 PM EDT 50 mcg fentaNYL (SUBLIMAZE) 2,500 mcg/50 mL (50 mcg/mL) (standard Pedi greater than 40 kg) OFFSET MACHINE OPERATOR Intravenous, OFFSET MACHINE OPERATOR ONLY, Starting on Mon11/23/20 at 2230, Until Mon11/24/20 at 0850, Recovery (Recovery-Hospital Unit) New Syringe/Cartridge 11/23/2020 11:39 PM EDT fentaNYL (SUBLIMAZE) 2,500 mcg/50 mL (50 mcg/mL) (standard Pedi greater than 40 kg) OFFSET MACHINE OPERATOR Intravenous, OFFSET MACHINE OPERATOR ONLY, Starting on Mon11/24/20 at 0945, Until Mon11/25/20 at 1008, Recovery (Recovery-Hospital Unit) New Syringe/Cartridge 11/24/2020 10:22 PM EDT 2,500 mcg Rate/Dose Change 11/24/2020 11:33 AM EDT 0 mL/h r gabapentin (Neurontin) capsule 600 mg 600 mg, Oral, 4 TIMES DAILY, First dose on Mon11/24/20 at 0530, Until Discontinued, Routine Given 11/26/2020 9:05 AM EDT 600 mg Given 11/25/2020 8:36 PM EDT 600 mg Given 11/25/2020 6:11 PM EDT 600 mg lactated ringers infusion 100 mL/hr, Intravenous, CONTINUOUS, Starting on Mon11/23/20 at 2200, Until Mon11/25/20 at 1008, Recovery (Recovery-Hospital Unit) New Bag 11/25/2020 2:16 AM EDT 100 mL/hr 100 mL /hr New Bag 11/24/2020 4:21 PM EDT 100 mL/hr 100 mL/hr Rate/Dose Change 11/24/2020 5:25 AM EDT 100 mL/hr 100 mL/ hr lidocaine (Xylocaine) 1% (10 mg/mL) injection 3 mg 3 mg (0.3 mL), Subcutaneous, ONCE PRN, 1 dose, Starting on Mon11/23/20 at 2106, Until Ange 11/26/20 at 1358, for discomfort with PIV insertion, Recovery (Recovery-Hospital Unit), Routine lisinopriL (Zestril) tablet 5 mg 5 mg, Oral, DAILY, First dose on Mon11/24/20 at 0530, Until Discontinued, Routine Given 11/26/2020 9:05 AM EDT 5 mg Given 11/25/2020 8:29 AM EDT 5 mg Given 11/24/2020 10:12 AM EDT 5 mg LORazepam (Ativan) (2 mg/mL) injection 0.5 mg 0.5 mg, Intravenous, EVERY 4 HOURS PRN, Starting on Mon11/24/20 at 0020, Until Ange 11/26/20 at 1358, Nausea, Routine ondansetron (pf) (Zofran) (2 mg/mL) injection 4 mg 4 mg, Intravenous, EVERY 8 HOURS PRN, Starting on Mon11/24/20 at 0627, Until Mon11/26/20 at 1358, Nausea Given 11/24/2020 6:56 PM EDT 4 mg Given 11/24/2020 6:36 AM EDT 4 mg oxyCODONE (Roxicodone) tablet 5-10 mg 5-10 mg, Oral, EVERY 4 HOURS PRN, Starting on Mon11/23/20 at 2025, Until Mon11/23/20 at 2138, Pain, Severe pain (7-10), - Initial dose 5 mg. - If pain control not adequate in 60 minutes, give additional 5 mg., Routine Given 11/23/2020 9:18 PM EDT 5 mg oxyCODONE (Roxicodone) tablet 5-10 mg 5-10 mg, Oral, EVERY 4 HOURS PRN, Starting on Mon11/24/20 at 0600, Until Ange 11/26/20 at 1358, Pain, - Initial dose 5 mg. - If pain control not adequate in 60 minutes, give additional 5 mg., Routine Given 11/26/2020 9:06 AM EDT 10 mg Given 11/26/2020 7:35 AM EDT 10 mg Given 11/26/2020 3:54 AM EDT 5 mg pantoprazole (Protonix) injection 40 mg 40 mg, Intravenous, DAILY, First dose on Mon11/24/20 at 0900, Until Discontinued, Reconstitute with 10 mL of normal saline to a concentration of 4 mg/mL and infuse slowly over 2 minutes. , Routine Given 11/25/2020 8:28 AM EDT 40 mg Given 11/24/2020 10:15 AM EDT 40 mg pantoprazole EC (Protonix) tablet 40 mg 40 mg, Oral, DAILY, First dose on Mon11/24/20 at 0900, Until Discontinued, DO NOT CRUSH OR OPEN If unable to take PO, may give IV Given 11/26/2020 9:06 AM EDT 40 mg polyethylene glycoL (Miralax) packet 17 g 17 g, Oral, DAILY, First dose on Mon11/24/20 at 0600, Until Discontinued, Routine Given 11/24/2020 3:13 PM EDT 17 g prochlorperazine (Compazine) (5 mg/mL) injection 10 mg 10 mg, Intravenous, EVERY 6 HOURS PRN, Starting on Mon11/24/20 at 0627, Until Ange 11/26/20 at 1358, Nausea, Routine Given 11/25/2020 8:29 AM EDT 10 mg Given 11/24/2020 9:30 AM EDT 10 mg senna-docusate (Pericolace) 8.6-50 mg per tablet 2 tablet 2 tablet, Oral, 2 TIMES DAILY, First dose on Mon11/24/20 at 0900, Until Discontinued, Routine Given 11/24/2020 10:12 AM EDT 2 tablets sodium chloride 0.9 % (flush) (BD PosiFlush Normal Saline 0.9) flush 5 mL 5 mL, Intravenous, 2 TIMES DAILY, First dose on Mon11/23/20 at 2200, Until Discontinued, Recovery (Recovery-Hospital Unit), Routine Given 11/26/2020 9:06 AM EDT 5 mLs Given 11/25/2020 8:37 PM EDT 5 mLs Given 11/25/2020 8:30 AM EDT 10 mLs sodium chloride 0.9 % (flush) (BD PosiFlush Normal Saline 0.9) flush 5-20 mL 5-20 mL, Intravenous, EVERY 1 MIN PRN, Starting on Mon11/23/20 at 2106, Until Ange 11/26/20 at 1358, flush, Flush pertains to all indwelling lines. Flush per protocol found in the job aid using the link provided on this medication record., Recovery (Recovery-Hospital Unit), Routine documented in this encounter Active and Recently Administered Medications Times are shown in EDT. Scheduled Medication Order 11/24/2020 11/25/2020 11/26/2020 acetaminophen (Ofirmev) (1000 mg/100 mL) infusion 1,000 mg (COMPLETED)(Linked Group 1) 1,000 mg, Intravenous, at 400 mL/hr, Administer over 15 Minutes, EVERY 8 HOURS SCHEDULED, 3 doses, First dose on Mon11/24/20 at 0945, Last dose on Mon11/24/20 at 2200, Maximum dose of acetaminophen is 4000 mg from all sources in 24 hours. When ordered for pain, acetaminophen should be given even when other ordered pain medications are indicated. , Routine, Is ketorolac (Toradol) IV contraindicated? Yes, Can this patient tolerate oral medications or suppositories? No 1100 (Given - Provider: Lulu Krueger RN)1354 (Given - Provider: Lulu Krueger RN)2221 (Given - Provider: Donna Navas RN) bisacodyL (Dulcolax) suppository 10 mg (COMPLETED) 10 mg, Rectal, ONCE, 1 dose, On Mon11/25/20 at 0815, Routine 0829 (Given - Provider: Anabel Stearns RN) enoxaparin (Lovenox) (40 mg/0.4 mL) subcutaneous injection 40 mg 40 mg, Subcutaneous, NIGHTLY, First dose on Mon11/23/20 at 2115, Until Discontinued, Routine 2030 (Given - Provider: Donna Navas RN) 203 (Given - Provider: Jen Adam RN) gabapentin (Neurontin) capsule 600 mg 600 mg, Oral, 4 TIMES DAILY, First dose on Mon11/24/20 at 0530, Until Discontinued, Routine 0530 (Not Given - Provider: Bonita Arthur RN - Reason: Patient Unable - Comment: active n/v)1012 (Given - Provider: Lulu Krueger RN - Comment: unable to take PO meds due to nausea)1359 (Not Given - Provider: Lulu Krueger RN - Reason: Patient/family refused - Comment: Unable to take d/t nausea)1700 (Not Given - Provider: Lulu Krueger RN - Reason: Patient/family refused)2030 (Given - Provider: Donna Navas RN) 0829 (Given - Provider: Anabel Stearns RN)1312 (Given - Provider: Anabel Stearns, YVES)181 (Given - Provider: Anabel Stearns RN)203 (Given - Provider: Jen Adam RN) 0905 (Given - Provider: Elizabeth Sandhu RN) lisinopriL (Zestril) tablet 5 mg 5 mg, Oral, DAILY, First dose on Mon11/24/20 at 0530, Until Discontinued, Routine 1012 (Given - Provider: Lulu Krueger RN - Comment: unable to take PO meds due to nausea) 0829 (Given - Provider: Anabel Stearns, YVES) 0905 (Given - Provider: Elizabeth Sandhu, YVES) pantoprazole (Protonix) injection 40 mg(Linked Group 2) 40 mg, Intravenous, DAILY, First dose on Mon11/24/20 at 0900, Until Discontinued, Reconstitute with 10 mL of normal saline to a concentration of 4 mg/mL and infuse slowly over 2 minutes. , Routine 1015 (Given - Provider: Lulu Krueger RN) 0828 (Given - Provider: Anabel Stearns, YVES) 0906 (See Alternative - Provider: Elizabeth Sandhu RN) pantoprazole EC (Protonix) tablet 40 mg(Linked Group 2) 40 mg, Oral, DAILY, First dose on Mon11/24/20 at 0900, Until Discontinued, DO NOT CRUSH OR OPEN If unable to take PO, may give IV 1015 (See Alternative - Provider: Lulu Krueger RN) 0828 (See Alternative - Provider: Anabel Stearns, YVES) 0906 (Given - Provider: Elizabeth Sandhu, YVES) polyethylene glycoL (Miralax) packet 17 g (CANCELED) 17 g, Oral, DAILY, First dose on Mon11/24/20 at 0600, Until Discontinued, Routine 1513 (Given - Provider: Alessandra Gan RN) polyethylene glycoL (Miralax) packet 17 g 17 g, Oral, ONCE, 1 dose, On Mon11/26/20 at 1030, Routine 1030 (Not Given - Provider: Elizabeth Sandhu RN - Reason: Patient/family refused) senna-docusate (Pericolace) 8.6-50 mg per tablet 2 tablet (CANCELED) 2 tablet, Oral, 2 TIMES DAILY, First dose on Mon11/24/20 at 0900, Until Discontinued, Routine 1012 (Given - Provider: Lulu Krueger RN - Comment: unable to take PO meds due to nausea) sodium chloride 0.9 % (flush) (BD PosiFlush Normal Saline 0.9) flush 5 mL 5 mL, Intravenous, 2 TIMES DAILY, First dose on Mon11/23/20 at 2200, Until Discontinued, Recovery (Recovery-Hospital Unit), Routine 0900 (Given - Provider: Lulu Krueger RN)2030 (Given - Provider: Donna Navas RN) 0830 (Given - Provider: Anabel Stearns, YVES)2036 (Given - Provider: Jen Adam RN) 09 (Given - Provider: Elizabeth Sandhu RN) Continuous Medication Order 11/24/2020 11/25/2020 11/26/2020 fentaNYL (SUBLIMAZE) 2,500 mcg/50 mL (50 mcg/mL) (standard Pedi greater than 40 kg) OFFSET MACHINE OPERATOR (CANCELED) Intravenous, OFFSET MACHINE OPERATOR ONLY, Starting on Mon11/24/20 at 0945, Until Mon11/25/20 at 1008, Recovery (Recovery-Hospital Unit) 1133 (Rate/Dose Change - Provider: Lulu Krueger RN - Comment: double verified with Merrill Short RN)2222 (New Syringe/Cartridge - Provider: Donna Navas RN) 1245 (Stopped - Provider: Anabel Stearns, YVES) lactated ringers infusion (CANCELED) 100 mL/hr, Intravenous, CONTINUOUS, Starting on Mon11/23/20 at 2200, Until Mon11/25/20 at 1008, Recovery (Recovery-Hospital Unit) 0525 (Rate/Dose Change - Provider: Haylie Ornelas RN)1621 (New Bag - Provider: Lulu Krueger RN) 0216 (New Bag - Provider: Donna Navas RN)1228 (Stopped - Provider: Anabel Stearns, YVES) PRN Medication Order 11/24/2020 11/25/2020 11/26/2020 acetaminophen (Tylenol) tablet 650 mg(Linked Group 1) 650 mg, Oral, EVERY 6 HOURS PRN, Starting on Mon11/25/20 at 0600, Until Ange 11/26/20 at 1358, Pain, Maximum dose of acetaminophen is 4000 mg from all sources in 24 hours. When ordered for pain, acetaminophen should be given even when other ordered pain medications are indicated. , Routine 1427 (Given - Provider: Anabel Stearns RN)2035 (Given - Provider: Jen Adam RN) 0353 (Given - Provider: Jen Adam RN) lidocaine (Xylocaine) 1% (10 mg/mL) injection 3 mg 3 mg (0.3 mL), Subcutaneous, ONCE PRN, 1 dose, Starting on Mon11/23/20 at 2106, Until Mon11/26/20 at 1358, for discomfort with PIV insertion, Recovery (Recovery-Hospital Unit), Routine LORazepam (Ativan) (2 mg/mL) injection 0.5 mg 0.5 mg, Intravenous, EVERY 4 HOURS PRN, Starting on Mon11/24/20 at 0020, Until Mon11/26/20 at 1358, Nausea, Routine ondansetron (pf) (Zofran) (2 mg/mL) injection 4 mg 4 mg, Intravenous, EVERY 8 HOURS PRN, Starting on Mon11/24/20 at 0627, Until Mon11/26/20 at 1358, Nausea 0636 (Given - Provider: Bonita Arthur RN)1856 (Given - Provider: Lulu Krueger RN) oxyCODONE (Roxicodone) tablet 5-10 mg 5-10 mg, Oral, EVERY 4 HOURS PRN, Starting on Mon11/24/20 at 0600, Until Mon11/26/20 at 1358, Pain, - Initial dose 5 mg. - If pain control not adequate in 60 minutes, give additional 5 mg., Routine 1426 (Given - Provider: Anabel Stearns RN)1950 (Given - Provider: Jen Adam RN)2036 (Given - Provider: Jen Adam RN - Comment: range dose) 0338 (Given - Provider: Sam Skaggs RN)0354 (Given - Provider: Jen Adam RN - Comment: range dose)0735 (Given - Provider: Elizabeth Sandhu, YVES)0906 (Given - Provider: Elizabeth Sandhu, YVES) prochlorperazine (Compazine) (5 mg/mL) injection 10 mg 10 mg, Intravenous, EVERY 6 HOURS PRN, Starting on Mon11/24/20 at 0627, Until Mon11/26/20 at 1358, Nausea, Routine 0930 (Given - Provider: Lulu Krueger, YVES) 0829 (Given - Provider: Anabel Stearns RN) sodium chloride 0.9 % (flush) (BD PosiFlush Normal Saline 0.9) flush 5-20 mL 5-20 mL, Intravenous, EVERY 1 MIN PRN, Starting on Mon11/23/20 at 2106, Until Mon11/26/20 at 1358, flush, Flush pertains to all indwelling lines. Flush per protocol found in the job aid using the link provided on this medication record., Recovery (Recovery-Hospital Unit), Routine Linked Groups Order Group 1: acetaminophen (Ofirmev) (1000 mg/100 mL) infusion 1,000 mg (COMPLETED)Jump to med 1,000 mg, Intravenous, at 400 mL/hr, Administer over 15 Minutes, EVERY 8 HOURS SCHEDULED, 3 doses, First dose on Mon11/24/20 at 0945, Last dose on Mon11/24/20 at 2200, Maximum dose of acetaminophen is 4000 mg from all sources in 24 hours. When ordered for pain, acetaminophen should be given even when other ordered pain medications are indicated. , Routine, Is ketorolac (Toradol) IV contraindicated? Yes, Can this patient tolerate oral medications or suppositories? No Followed by acetaminophen (Tylenol) tablet 650 mgJump to med 650 mg, Oral, EVERY 6 HOURS PRN, Starting on Mon11/25/20 at 0600, Until Mon11/26/20 at 1358, Pain, Maximum dose of acetaminophen is 4000 mg from all sources in 24 hours. When ordered for pain, acetaminophen should be given even when other ordered pain medications are indicated. , Routine Group 2: pantoprazole EC (Protonix) tablet 40 mgJump to med 40 mg, Oral, DAILY, First dose on Mon11/24/20 at 0900, Until Discontinued, DO NOT CRUSH OR OPEN If unable to take PO, may give IV Or pantoprazole (Protonix) injection 40 mgJump to med 40 mg, Intravenous, DAILY, First dose on Mon11/24/20 at 0900, Until Discontinued, Reconstitute with 10 mL of normal saline to a concentration of 4 mg/mL and infuse slowly over 2 minutes. , Routine documented in this encounter Care Teams Fuselage Framer Relationship Specialty Start Date End Date Sue Espinosa PA [address] [place] [id number] PCP - General Family Medicine 11/09/20 02/14/22 documented as of this encounter
--- OUTSIDE RECORDS SUMMARY | 2024-01-02 18:41 | XMS_ITS | Encounter Summary ---
Author Organization [facility] [place] [id number] Care Team Providers Care Supervisor Dental Laboratory Name Role Phone Sue Espinosa Primary Care Provider [phone] Encounter Details Date Type Department Care Team (Late st Contact Info) Description 12/16/2020 Notes Only [place] [address] Evelyn Hernandez APRN [facility]ST[facility] & GYNECOLOGY [place] [id number] Social History Tobacco Use Types Packs/Day Years [...] Progress Notes * Evelyn Hernandez APRN - 12/16/2020 6:09 PM EDT Division [place] [address] This advertising copywriter called Dalia this evening to check in with her prior to initiating her first cycle ofchemotherapy tomorrow, 12/17/2020. Patient reports emotional distress and sadness over her diagnosis as well as fear of the unknown. She stated she has been in tears these past 2 days. I discussed resources that are available within the cancer center for psychosocial support and she will consider some of these options. She has the supplements for neuro protection. She stated her ice packs are in the freezer and she will bring those with her tomorrow for usage during the paclitaxel infusion. This advertising copywriter reminded her to use the EMLA cream that was prescribed for her prior to leaving her home. Patient stated that IR called today and stated she cannot remove her dressing until tomorrow as her port was placed yesterday, 12/15/2020. I told her to bring the EMLA with her to clinic and that Dr. Francois could remove the bandage and apply the EMLA cream for her. Patient was encouraged to call with any questions or concerns, and she was reminded there is alwaysan on-call attending 03/10. Evelyn Hernandez APRN documented in this encounter Plan of Treatment Not on file documented as of this encounter Visit Diagnoses Not on filedocumented in this encounter Care Teams Supervisor Dental Laboratory Relationship Specialty Start Date End Date Sue Espinosa PA [address] [place] [id number] PCP - General Family Medicine 11/09/20 02/14/22 documented as of this encounter
--- OUTSIDE RECORDS SUMMARY | 2024-01-02 18:41 | XMS_ITS | Encounter Summary ---
[place] [address] Care Team Providers Care Net Web Developer Name Role Phone Deedee Cruz MD Primary Care Provider [phone] Reason for Referral * Diagnostic Test (Routine) - Closed Specialty Diagnoses / Procedures Referred By Ryan turk Referred To Contact Radiology Diagnoses Left ovarian epithelial cancer Procedures IR Mediport Placement Evelyn Hernandez APRN [facility] [place] [address] [place] [address] Referral ID Status Reason Start Date Expiration Date V isits Requested Visits Authorized [id number] Closed Specialty Service Requested 12/07/2020 06/06/2022 1 1 Encounter Details Date Type Department Care Team (Late st Contact Info) Description 12/07/2020 Notes Only Gyne[place] [address] Evelyn Hernandez APRN [facility] [place] [address] Social History Tobacco Use Types Packs/Day Years [...] of this encounter Results * IR Mediport Placement (12/15/2020 8:58 AM EDT) Anatomical Region Laterality Modality X-Ray Angiograph y Narrative 12/15/2020 12:46 PM EDT Interventional Radiology Procedure Note Procedure: Subcutaneous venous port implant Indication: ovarian cancer, durable custodial central venous access for chemotherapy Procedure summary: 1.) Venous access with ultrasound guidance 2.) Tunneled port insertion under fluoroscopic guidance Pre-procedure: Informed consent for the procedure including risks, benefits, and alternatives was obtained. Active time-out was performed prior to the procedure. The site was prepared and draped using maximal sterile barrier technique. ?? Sedation: The patient received split doses of intravenous midazolam and fentanyl from the interventional radiology nurse while pulse, pressure, and oxygen saturation were continuously monitored. Technique: The right internal jugular vein was sonographically evaluated and determined to be patent. A permanent image was stored. Local anesthetic was administered. The vein was accessed via real-time ultrasound and micropuncture set with 21 gauge needle. A 0.018 wire was advanced into superior vena cava. The remainder of the procedure was performed under fluoroscopic guidance. A 4 Fr introducer sheath was placed and the wire exchanged for a 0.035 J wire. The wire was advanced into the inferior vena cava. Local anesthetic was administered on the anterior chest wall inferolateral to the puncture site. A 2 cm transverse incision was made in the right anterior chest wall, and with blunt dissection the port pocket was created. A trocar was then used to advance the catheter subcutaneously to the venous access site. A 4 Fr introducer sheath was exchanged for a peel-away sheath over the wire. The wire and inner obturator were removed and the catheter advanced into the superior vena cava under fluoroscopic guidance. The catheter was trimmed to appropriate length and attached to the port. The port was inserted into the pocket and the sheath was removed. Catheter tip location was identified and a permanent image was stored. The port flushed and aspirated well. ??The pocket was closed using a two-layer technique with 2-0 vicryl deep interrupted and 4-0 vicryl running sutures. The skin closed was with dermabond. The port was not left accessed. Medications: Lidocaine 1% <10 cc subcutaneous, lidocaine 1% with epinephrine <20 cc subcutaneous, fentanyl 250 mcg IV, midazolam 4 mg IV; prophylaxis: Cefazolin 2gm IV Contrast: None Fluoroscopy: 1.48 mGy Estimated blood loss: <10 mL Complications: No immediate Findings 1. Patent, compressible right internal jugular vein by ultrasound evaluation. 2. Catheter tip located in the superior cavoatrial junction. Impression 1. Successful implantation of power-injectable, Medcomp 8 Fr Dignity Mini Profile single-lumen port in right chest. The port may be used immediately. Service provider: Scottie Pantoja PA-C Present during the intraservice time as documented by the interventional radiology nurse. Attending of record: Azeem De Los Santos MD 12/15/2020 Evelyn Hernandez APRN IMG IR ORDERABLES documented in this encounter Visit Diagnoses Diagnosis Left ovarian epithelial cancer Chemotherapy induced nausea and vomiting Nausea with vomiting Left ovarian epithelial cancer Ovary cancer, right documented in this encounter Care Teams Net Web Developer Relationship Specialty Start Date End Date Deedee Cruz MD [address] [place] [id number] PCP - General Oncology 02/15/22 documented as of this encounter
--- OUTSIDE RECORDS SUMMARY | 2024-01-02 18:41 | XMS_ITS | Encounter Summary ---
[place] [address] Care Team Providers Care Impregnator And Drier Name Role Phone Sue Espinosa Primary Care Provider [phone] Reason for Referral * Diagnostic Test (Routine) - Closed Specialty Diagnoses / Procedures Referred By Contac t Referred To Contact Radiology Diagnoses Left ovarian epithelial cancer Procedures IR Mediport Placement Evelyn Hernandez [facility] [place] [address] [place] [address] Referral ID Status Reason Start Date Expiration Date V isits Requested Visits Authorized [id number] Closed Specialty Service Requested 12/07/2020 06/06/2022 1 1 Reason for Visit * Diagnostic Test (Routine) - Closed Specialty Diagnoses / Procedures Referred By Contac t Referred To Contact Radiology Diagnoses Left ovarian epithelial cancer Procedures IR Mediport Placement Evelyn Hernandez [facility] [place] [address] [place] [address] Referral ID Status Reason Start Date Expiration Date V isits Requested Visits Authorized [id number] Closed Specialty Service Requested 12/07/2020 06/06/2022 1 1 Encounter Details Date Type Department Care Team (Latest Contact Info) Description 12/15/2020 6:19 AM EDT - 12/15/2020 11:59 PM EDT Hospital [place] [id number] Evelyn Hernandez APRN [facility] [place] [address] Left ovarian epithelial cancer; Ovary cancer, right Discharge Disposition: Home Social [...] Sign Reading Time Taken Comments Blood Pressure 114/46 12/15/2020 9:45 AM EDT Pulse 103 12/15/2020 8:45 AM EDT Temperature 36.2 ??C (97.1 ??F) 12/15/2020 9:02 AM ED T Respiratory Rate 16 12/15/2020 9:45 AM EDT Oxygen Saturation 95% 12/15/2020 10:00 AM EDT Inhaled Oxygen Concentration - - Weight - - Height - - Body Mass Index - - documented in this encounter Discharge Instructions * Discharge Instructions* Alex Ivan RN - 12/15/2020 7:58 AM EDT Images from the original note were not included. [facility] Department of Vascular and Interventional Radiology Discharge Instructions for your Chest Port You have received a ???Power Port?? , which provides access for infusions and blood draws. What makes this a ???Power Port?? is the unique ability to ???power inject?? contrast (intravenous dye) through the port when getting a CT scan, which produces superior images (pictures). Patients who don???t have these special ports need to have an IV started if they need dye injected for their CT scan. Your port is printed with the letters ???CT?? which can be detected by x- ray to identify it as a ???Power Port?? . You will be provided with an ID card stating the nuclear reactor operator and type of port you have. Please carry this with you in a safe place. Bandage: There is a sterile dressing over the port site consisting of small gauze with a clear dressing (Tegaderm or [id number] ). This dressing should be left in place for 48 hours. If the clear dressing becomes loose you should place tape over the edges to secure it in place. Note: If you have steri-strips beneath your dressing, simply allow them to fall off. Do not peel them off. There may be Marbury-godoy (skin glue) also, allow this to flake off. Pain: Apply ice bag to site (s) at 30 minute intervals (30 minutes on and 30 minutes off) for 24 hours?? . May use as needed for pain and/or bruising after 24 hours. Bathing: Do not take a shower until 48 hours after your port is placed; after this time you may shower with the dressing in place, then remove it and pat your skin dry. After 48 hours, we recommend that you cover the area with THE AQUA GUARD PROVIDED for 1 week while showering, facing away from theshower stream. You may use a bandaid to cover the site after the 48 hours are up if there is any drainage. No tub baths, whirlpools or swimming for one week following port placement. Flushing the mediport: If your port has not been used, it must be flushed every 30 days. What to expect when your port is accessed: 1. You may feel tenderness the first few times it is accessed but generally this subsides over time. Ask your healthcare provider to use a local anesthetic on the site if discomfort is a problem for you. You may ask for a prescription for a topical cream (EMLA) from your clinician; you may apply athome prior to your appointments, to help numb the skin over your port. 2. The clinician should be wearing sterile gloves and a mask during the access procedure. Anyone inthe room with you should also have a mask on. 3. The skin over and 2 inches around the port should be cleaned with a disinfectant 4. Tell the clinician if you would like the skin numbed (lidocaine) before the access needle is placed. 5. Unless you are unable to take heparin (blood thinner), the port should be injected with a heparin solution before deaccess (at end of each treatment or blood draw). When to call your healthcare provider: ??? If you notice bleeding from the puncture site in your neck, or from the port incision on your chest, you should apply firm pressure over the site for 10-15 minutes, keeping the site covered. Callif you are still bleeding after 10-15 minutes. ??? If you develop pain, redness, drainage or swelling at or around the port site, or the puncture site in the neck ??? If you develop fever (elevation of more than 2 degrees or greater than 101F) and/or shaking chills When to call the Interventional Radiology Department: Please call with any questions or concerns. If it is during regular office hours, please call [phone]. If it is after regular office hours, or on weekends or holidays, please call [phone] and ask to speak to the Control Officer sephora operations consultant for Interventional Radiology. XXX You have received medication during your procedure to help lessen anxiety and keep you comfortable. These medications affect judgement and reaction time. We [...] BY MOUTH FOUR TIMES A DAY 11/03/2020 HYDROcodone-acetaminop hen ([place]) 10-325 mg Tablet 12/10/2020 02/18/2021 prochlorperazine (Compazine) 10 mg TabletIndications:Chem otherapy induced nausea and vomiting Take 1 tablet twice daily on schedule for 3 days after chemo. May use up to every 6-hours as needed for nausea and vomiting. 60 tablet 5 12/07/2020 10/18/2021 ondansetron (Zofran) 8 mg TabletIndications:Chem otherapy induced nausea and vomiting Take 1 tablet by mouth every 8 hours as needed for Nausea (Do NOT take in the first 3-days after chemo.). 20 tablet 5 12/07/2020 10/18/2021 LORazepam (Ativan) 0.5 mg TabletIndications:Chem otherapy induced nausea and vomiting Take 1 tablet [...] daily. 11/06/2020 01/28/2021 oxyCODONE (Roxicodone) 5 mg TabletIndications:Post -operative state Take 1 tablet by mouth every 4 hours as needed for Pain (breakthrough pain). 15 tablet 12/03/2020 12/17/2020 senna-docusate (Pericolace) 8.6-50 mg Tablet Take 1 [...] as of this encounter Progress Notes * Michelle Harper RN - 12/15/2020 11:59 PM EDT Interventional and Vascular Radiology Post-Procedure Call Name: Dalia Tavera Age: 65 y.o. Sex: Female Date of : 1955 (home) Telephone Information: PCP BAILEY Cannon [phone] Date/Time of call: December 16, 2020/10:40 AM Procedure: Mediport Placement Procedural Provider: BAILEY Wahl Contact with patient or if not, with whom? Dalia Message left on answering machine? [X] N/A Are you having pain related to your procedure now? [X] Yes Are you having any swelling or bleeding from the site? No Are there any improvement in your symptoms? Yes Are you having any other problems related to your procedure? No Did you understand the discharge instructions given and do you have any questions? No Do you have any comments about your Nurse or Provider or the care you received? [X] Yes Comments (if applicable): Everyone was excellent. Professional and compassionate. * Alex Ivan RN - 12/15/2020 7:58 AM EDT ANGIO NURSING DATABASE Name: DALIA TAVERA Date of : 1955 AGE: 65 y.o. [address]: [address] [place] [address] (home) Mobile: Telephone Information: Referring Provider: Evelyn Hernandez REASON FOR VISIT: Order Questions Answers Where will study be performed? [facility] Radiology [120] Is the patient on anticoagulant / antiplatelet therapy ? No Reason for exam and clinical history: New dx of ovarian cancer. Need for long- term venous access for chemotherapy. Allergies Allergen Reactions ??? Fish Containing Products Nausea And Vomiting ??? Pork/Porcine Containing Products Nausea And Vomiting Pertinent PMH: Patient Active Problem List Diagnosis Code ??? Pelvic mass R19.00 ??? Ileus, postoperative K91.89, K56.7 ??? RLQ abdominal pain R10.31 ??? Ileus K56.7 ??? 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 Ovary cancer, left C56.2 Date/Procedure Meds Given/Comments 12/15/2020 Mediport placement Cefazolin 2 g IV, Fentanyl 250 mcg IV, Versed 4 mg IV 0743 to procedure room 6 via stretcher. Onto table supine. All monitors, O2, safety strap in place.Meds per protocol. Laboratory Results: Lab Results Component Value Date CREATININE 0.61 (L) 11/24/2020 Lab Results Component Value Date K 3.5 11/24/2020 Lab Results Component Value Date PLATELET 255 11/20/2020 documented in this encounter H&P Notes * Scottie Pantoja PA - 12/15/2020 7:07 AM EDT INTERVENTIONAL RADIOLOGY FOCUSED H&P: Procedure: Planned procedure: Mediport placement The patient's history and physical exam have been reviewed and completed. There has been no interval change from that of the pre-operative history and physical exam done within the last 30 days. Physical Exam: Cardiovascular: Regular, Normal Pulmonary: Breath sounds clear to auscultation The planned procedure (and sedation plan if appropriate) , its benefits and risks, and alternativeswere discussed with the patient. The patient consented to the procedure. PRE-SEDATION ASSESSMENT: Sedation Plan: moderate (conscious sedation) ASA: 2: Patient with mild systemic disease Mallampati: I: soft palate, fauces, tonsillar pillars and uvula can be seen Confirm NPO status: Yes History of anesthetic complications: No Current medications reviewed: Yes Allergies reviewed: Yes Source Note - Scottie Pantoja PA - 12/10/2020 3:31 PM EDT Interventional Radiology Focused Pre-procedure H&P: PCP: BAILEY Cannon Referring Provider: Evelyn Hernandez Planned procedure: Mediport placement Procedure indication: ovarian cancer and need for durable venous access IR workflow: Procedure request received through Interventional Radiology eDH order queue. Order Questions Answers Where will study be performed? [facility] Radiology [120] Is the patient on anticoagulant / antiplatelet therapy ? No Reason for exam and clinical history: New dx of ovarian cancer. Need for long- term venous access for chemotherapy. History of present illness: Per chart review, Dalia Tavera is a 65 y.o. 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 Remainder of patient's medical and surgical history, allergies, medications, and social/family history obtained below as previously outlined in patient's medical record. IR history: none Assessment: 65 y.o. female with ovarian cancer presenting to Interventional Radiology for mediport placement. Plan Planned procedure: Mediport placement Labs to be performed day of procedure: No labs Sedation: Moderate (Conscious sedation) Prophylactic antibiotic : Ancef Contrast: No contrast Additional medications for procedure: Lidocaine Planned access site: Right IJ vein Position: Supine Consent: Pending Medications to discontinue (and days held): None Cytopathology presence needed: No Case Urgency:: G- Other (non E or F elective cases) Labs: Lab Results Component Value Date HGB 10.8 (L) 11/20/2020 HCT 32.0 (L) 11/20/2020 WBC 10.3 (H) 11/20/2020 PLATELET 255 11/20/2020 BUN 7 (L) 11/24/2020 CREATININE 0.61 (L) 11/24/2020 Allergies: Fish containing products and Pork/porcine containing products Medications: Current Outpatient Medications on File Prior to Encounter Medication Sig Dispense Refill ??? prochlorperazine (Compazine) 10 mg Tablet Take 1 tablet twice daily on schedule for 3 days after chemo. May use up to every 6-hours as needed for nausea and vomiting. 60 tablet 5 ??? ondansetron (Zofran) 8 mg Tablet Take 1 tablet by mouth every 8 hours as needed for Nausea (Do NOT take in the first 3-days after chemo.). 20 tablet 5 ??? LORazepam (Ativan) 0.5 mg Tablet Take 1 tablet by mouth every 6 hours as needed (breakthrough nausea or vomiting.). 20 tablet 1 ??? lidocaine-prilocaine (EMLA) Cream Place on skin over port site ~ 1-hour prior to access for labs or chemo. 30 g 5 ??? diphenhydrAMINE (Benadryl) 50 mg Capsule Take 50 mg by mouth as needed. Take 50 mg as needed for motion sickness ??? potassium chloride (K-Tab) 20 mEq Tablet [...] every 6 hours. 30 tablet 1 ??? ibuprofen (Advil) 600 mg Tablet Take 1 tablet by mouth every 6 hours. 30 tablet 12 ??? gabapentin (NEURONTIN) 600 mg Tablet TAKE ONE TABLET BY MOUTH FOUR TIMES A DAY ??? lisinopriL (Zestril) 5 mg Tablet TAKE ONE TABLET BY MOUTH EVERY DAY ??? dimenhyDRINATE (Dramamine) 50 mg Tablet Take 50 mg by mouth as needed. Pt does take for long car rides maybe 2x per year No current facility-administered medications on file prior to encounter. Past medical/surgical history: Patient Active Problem List [...] 34.13) performed by Aletha Francois MD at [facility] MAIN OR ??? PRO REMOVAL, ABDOMEN LYMPH NODE, STAGING N/A 11/19/2020 @LYMPHADENECTOMY, LIMITED FOR STAGING, RETROPERITONEAL (WRVU 11.38) performed by Aletha Francois MD [facility] MAIN OR Social history and habits: Social History Tobacco Use ??? Smoking status: Never Smoker ??? Smokeless tobacco: Never Used Vaping Use ??? Vaping Use: Never used Substance Use Topics ??? Alcohol use: Never ??? Drug use: Never Significant family history: No family history on file. Pertinent ROS: as per HPI Physical exam: Pending (to be performed in interventional radiology the day of procedure) ASA: Pending (to be assessed in interventional radiology the day of procedure) Mallampati class: Pending (to be assessed in interventional radiology the day of procedure) 12/10/2020 BAILEY Lawton * Scottie Pantoja PA - 12/10/2020 3:31 PM EDT Interventional Radiology Focused Pre-procedure H&P: PCP: BAILEY Cannon Referring Provider: Evelyn Hernandez Planned procedure: Mediport placement Procedure indication: ovarian cancer and need for durable venous access IR workflow: Procedure request received through Interventional Radiology eDH order queue. Order Questions Answers Where will study be performed? [facility] Radiology [120] Is the patient on anticoagulant / antiplatelet therapy ? No Reason for exam and clinical history: New dx of ovarian cancer. Need for long- term venous access for chemotherapy. History of present illness: Per chart review, Dalia Tavera is a 65 y.o. 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 Remainder of patient's medical and surgical history, allergies, medications, and social/family history obtained below as previously outlined in patient's medical record. IR history: none Assessment: 65 y.o. female with ovarian cancer presenting to Interventional Radiology for mediport placement. Plan Planned procedure: Mediport placement Labs to be performed day of procedure: No labs Sedation: Moderate (Conscious sedation) Prophylactic antibiotic : Ancef Contrast: No contrast Additional medications for procedure: Lidocaine Planned access site: Right IJ vein Position: Supine Consent: Pending Medications to discontinue (and days held): None Cytopathology presence needed: No Case Urgency:: G- Other (non E or F elective cases) Labs: Lab Results Component Value Date HGB 10.8 (L) 11/20/2020 HCT 32.0 (L) 11/20/2020 WBC 10.3 (H) 11/20/2020 PLATELET 255 11/20/2020 BUN 7 (L) 11/24/2020 CREATININE 0.61 (L) 11/24/2020 Allergies: Fish containing products and Pork/porcine containing products Medications: Current Outpatient Medications on File Prior to Encounter Medication Sig Dispense Refill ??? prochlorperazine (Compazine) 10 mg Tablet Take 1 tablet twice daily on schedule for 3 days after chemo. May use up to every 6-hours as needed for nausea and vomiting. 60 tablet 5 ??? ondansetron (Zofran) 8 mg Tablet Take 1 tablet by mouth every 8 hours as needed for Nausea (Do NOT take in the first 3-days after chemo.). 20 tablet 5 ??? LORazepam (Ativan) 0.5 mg Tablet Take 1 tablet by mouth every 6 hours as needed (breakthrough nausea or vomiting.). 20 tablet 1 ??? lidocaine-prilocaine (EMLA) Cream Place on skin over port site ~ 1-hour prior to access for labs or chemo. 30 g 5 ??? diphenhydrAMINE (Benadryl) 50 mg Capsule Take 50 mg by mouth as needed. Take 50 mg as needed for motion sickness ??? potassium chloride (K-Tab) 20 mEq Tablet [...] every 6 hours. 30 tablet 1 ??? ibuprofen (Advil) 600 mg Tablet Take 1 tablet by mouth every 6 hours. 30 tablet 12 ??? gabapentin (NEURONTIN) 600 mg Tablet TAKE ONE TABLET BY MOUTH FOUR TIMES A DAY ??? lisinopriL (Zestril) 5 mg Tablet TAKE ONE TABLET BY MOUTH EVERY DAY ??? dimenhyDRINATE (Dramamine) 50 mg Tablet Take 50 mg by mouth as needed. Pt does take for long car rides maybe 2x per year No current facility-administered medications on file prior to encounter. Past medical/surgical history: Patient Active Problem List [...] 34.13) performed by Aletha Francois MD at [facility] MAIN OR ??? PRO REMOVAL, ABDOMEN LYMPH NODE, STAGING N/A 11/19/2020 @LYMPHADENECTOMY, LIMITED FOR STAGING, RETROPERITONEAL (WRVU 11.38) performed by Aletha Francois MD [facility] MAIN OR Social history and habits: Social History Tobacco Use ??? Smoking status: Never Smoker ??? Smokeless tobacco: Never Used Vaping Use ??? Vaping Use: Never used Substance Use Topics ??? Alcohol use: Never ??? Drug use: Never Significant family history: No family history on file. Pertinent ROS: as per HPI Physical exam: Pending (to be performed in interventional radiology the day of procedure) ASA: Pending (to be assessed in interventional radiology the day of procedure) Mallampati class: Pending (to be assessed in interventional radiology the day of procedure) 12/10/2020 BAILEY Lawton documented in this encounter Plan of Treatment Not on file documented as of this encounter Procedures Procedure Name Priority Date/Time Associated Diagnosis Comments IR MEDIPORT PLACEMENT Routine 12/15/2020 8:58 AM EDT Left ovarian epithelial cancer HEMOGRAM Routine 12/15/2020 8:35 AM EDT Ovary cancer, right DIFFERENTIAL, AUTOMATED Routine 12/15/2020 8:35 AM EDT Ovary cancer, right HC CBC,PLT & AUTO DIFF Routine 8:35 AM EDT Ovary cancer, right COMPREHENSIVE METABOLIC PANEL Routine 12/15/2020 8:35 AM EDT Ovary cancer, right documented in this encounter Results * IR Mediport Placement (12/15/2020 8:58 AM EDT) Anatomical Region Laterality Modality X-Ray Angiograph y Narrative 12/15/2020 12:46 PM EDT Interventional Radiology Procedure Note Procedure: Subcutaneous venous port implant Indication: ovarian cancer, durable care home central venous access for chemotherapy Procedure summary: [...] De Los Santos MD 12/15/2020 Evelyn Hernandez COOPERATIVE MANAGER IMG IR ORDERABLES * Differential, Automated (12/15/2020 8:35 AM EDT) Pathologist [facility] Neutrophil % 57.6 % [facility] Neutrophil Absolute 3.18 1.70 - 6.10 x10(3)/[facility] Lymph % 32.6 % [facility] Lymphocytes Abs 1.8 0.9 - 3.2 x10(3)/[facility] Monocyte % 6.9 % [facility] Monocyte Abs 0.4 0.3 - 0.9 x10(3)/[facility] Eos % 2.2 % [facility] Eosinophils Abs 0.1 0.0 - 0.4 x10(3)/[facility] Basophil % 0.5 % [facility] Baso Absolute 0.0 0.0 - 0.1 x10(3)/[facility] Immature Gran % 0.20 % [facility] Comment: Immature granulocytes(IG's)percentage and absolute count will include metamyelocytes, myelocytes, and promyelocytes. Blood smears from CBCs yielding IG's will be scanned manually for concordance. If this scan disagrees with the automated IG or if promyelocytes are noted, a manual differential will be performed. Immature Gran Absolute 0.01 0.00 - 0.04 x10(3)/[facility] Blood 12/15/2020 8:35 AM EDT 12/15/2020 8:54 AM EDT Narrative Resulting Agency Comment Spec In Lab Evelyn Carri Lapan COOPERATIVE MANAGER HEMATOLOGY ORDERABLE S [facility] [place] [address] * (ABNORMAL) Hemogram (12/15/2020 8:35 AM EDT) Pathologist [facility] White Blood Cell 5.5 4.0 - 9.5 x10(3)/mc L [facility] Red Blood Cell 3.76(L) 4.00 - 5.21 x10(6)/mc L [facility] Hemoglobin 11.9 11.7 - 15.5 g/dL [facility] Hematocrit 36.6 35.7 - 45.8 % [facility] Mean Cell Volume 97.3(H) 82.6 - 94.[address] [facility] Mean Cell Hemoglobin 31.6 27.1 - 32.[address] [facility] Mean Cell Hemoglobin Concentration 32.5 31.7 - 35.0 g/dL [facility] Platelet 294 145 - 357 x10(3)/mc L [facility] RDW Standard Deviation 44.4 37.0 - 46.[address] [facility] RDW coefficient of variation 12.3 11.5 - 14.1 % [facility] Mean Platelet Volume 9.5 7.6 - 12.[address] [facility] NRBC% auto 0.0 % [facility] NRBC Absolute 0.000 0.000 - 0.000 x10(3)/mc L [facility] Blood 12/15/2020 8:35 AM EDT 12/15/2020 8:54 AM EDT Narrative Resulting Agency Comment Spec In Lab Evelyn Carri Hernandez COOPERATIVE MANAGER HEMATOLOGY ORDERABLE S [facility] [place] [address] * (ABNORMAL) Comprehensive metabolic panel (non-fasting) (12/15/2020 8:35 AM EDT) Glucose 122 65 - 199 mg/dL [facility] Comment:Diabetes: >=200 mg/d L plus symptoms Blood Urea Nitrogen 7(L) 8 - 18 mg/dL [facility] Creatinine 0.73 0.70 - 1.20 mg/dL [facility] Sodium 140 135 - 145 mmol/L [facility] Potassium 3.6 3.5 - 5.0 mmol/L [facility] Comment: Please note: ??Patients with WBC >100,000 may have falsely elevated Potassium levels. ??For accurate Potassium quantification in these patients send serum separator tube (gold top) for subsequent determinations. ??Contact the Clinical Chemistry Laboratory if there are any questions. Chloride 104 98 - 107 mmol/L [facility] Carbon Dioxide 28 22 - 31 mmol/L [facility] Anion Gap 8 5 - 15 mmol/L [facility] Calcium 8.8 8.5 - 10.5 mg/dL [facility] Protein, Total 6.1 6.1 - 8.0 g/dL [facility] Albumin 3.9 3.2 - 5.2 g/dL [facility] Aspartate Aminotransferase 10 0 - 30 unit/L [facility] Alanine Aminotransferase 6 0 - 30 unit/L [facility] Alkaline Phosphatase 72 35 - 105 unit/L [facility] Bilirubin, Total 0.3 0.2 - 1.3 mg/dL [facility] Est Glomerular Filtration Rate 86 >=60 mL/min/1. 73 m?? [facility] Comment: This patient? s estimated glomerular filtration rate (eGFR) is between 86 mL/min/1.73 m2 (patients with less muscle mass) and 100 mL/min/1.73 m2 (patients with more muscle mass) [...] and symptoms in addition to eGFR. Blood 12/15/2020 8:35 AM EDT 12/15/2020 8:54 AM EDT Narrative Resulting Agency Comment Spec In Lab Evelyn Hernandez APRN CHEMISTRY ORDERABLES [facility] [place] [phone] documented in this encounter Visit Diagnoses Diagnosis Left ovarian epithelial cancer Ovary cancer, right documented in this encounter Administered Medications Inactive Administered Medications - up to 3 most recent administrations Medication Order MAR Action Action Date Dose Rate Site ceFAZolin (Ancef) 2 g in dextrose 5% 100 mL (2 x 1 g/50 mL premix bags) infusion 2 g, Intravenous, ONCE, 1 dose, On Mon12/15/20 at 0745, Administer over 30 Minutes, Redose every 3 hours if CrCl is greater than 20. Redose every 8 hours if CrCl is less than 20. Total dose of ceFAZolin 2 grams, administered using two ceFAZolin 1g/50mL IV bags. Infuse each ceFAZolin 1g/50mL bag over 30 minutes (100 ml/hr) for total infusion time of 60 minutes. On the MAR, document administration of first bag using New Bag (1 of 2) MAR action for dose of 1g. On the MAR, document administration of second bag using Next Bag (2 of 2) MAR action for dose of 1g (resulting in total dose of 2g)., Angio/IR (Day of Procedure), Indication for (Active or Suspected): Prophylaxis New Bag (1 of 2) 12/15/2020 7:45 AM EDT 2 g 100 mL/hr fentaNYL (pf) (50 mcg/mL) multi-dose injection 25-50 mcg 25-50 mcg, Intravenous, EVERY 3 MIN PRN, Starting on Mon12/15/20 at 0723, Until Mon12/15/20 at 1021, Pain, per unit protocol, - Start dose 50 mcg (reduce dose to 25 mcg if history of sedation sensitivity). - Titration dose 25-50 mcg IV, (based on patient response) every 3 minutes PRN, to maintain procedural pain less than 2 per pain Scale. Maximum dose: 50 mcg/dose, 250 mcg/hour For use in Interventional Radiology (IR) only for procedural sedation with direct provider supervision and verbal order., Angio/IR (Day of Procedure), Routine Given 12/15/2020 8:31 AM EDT 50 mcg Given 12/15/2020 8:23 AM EDT 50 mcg Given 12/15/2020 8:17 AM EDT 50 mcg lidocaine (Xylocaine) 1% (10 mg/mL) injection 10 mg 10 mg, Subcutaneous, ONCE, 1 dose, On Mon12/15/20 at 0745, For use in Interventional Radiology (IR) only for procedure with direct provider supervision and verbal order., Angio/IR (Day of Procedure), Routine Given 12/15/2020 8:18 AM EDT 10 mg lidocaine-EPINEPHrine (1% - 1:100,000) injection 50 mL 50 mL, Intradermal, ONCE, 1 dose, On Mon12/15/20 at 0745, For use in Interventional Radiology (IR) only for Radiofrequency Ablation of Saphenous Vein procedure with direct provider supervision and verbal order., Angio/IR (Day of Procedure), Routine Given 12/15/2020 8:18 AM EDT 50 mLs midazolam (pf) (Versed) (1 mg/mL) multi-dose injection 0.5-1 mg 0.5-1 mg, Intravenous, EVERY 3 MIN PRN, Starting on Mon12/15/20 at 0723, Until Mon12/15/20 at 1021, Sleep, - Start dose; 1 mg (Reduce dose to 0.5 mg if history of sedation sensitivity). - Titration dose: 0.5 mg - 1 mg (based on patient response) every 3 minutes PRN to obtain RASS score of -3. Maximum dose: 1 mg per dose, 5 mg/hour. For use in Interventional Radiology (IR) only for procedural sedation with direct provider supervision and verbal order., Angio/IR (Day of Procedure), Routine Given 12/15/2020 8:31 AM EDT 1 mg Given 12/15/2020 8:24 AM EDT 1 mg Given 12/15/2020 8:07 AM EDT 1 mg sodium chloride 0.9 % (flush) (BD PosiFlush Normal Saline 0.9) flush 5 mL 5 mL, Intravenous, 2 TIMES DAILY, First dose on Mon12/15/20 at 0900, Until Discontinued, Angio/IR (Day of Procedure), Routine Given 12/15/2020 9:00 AM EDT 5 mLs documented in this encounter Care Teams Impregnator And Drier Relationship Specialty Start Date End Date Sue Espinosa PA [address] [place] [id number] PCP - General Family Medicine 11/09/20 02/14/22 documented as of this encounter
--- OUTSIDE RECORDS SUMMARY | 2024-01-02 18:41 | XMS_ITS | Encounter Summary ---
Author Organization [facility] [place] [address] Care Team Providers Care Guest Services Coordinator Name Role Phone Sue Espinosa Primary Care Provider [phone] Encounter Details Date Type Department Care Team (Late st Contact Info) Description 01/07/2021 Orders Only [place] [address] Aletha Francois MD [facility] OBSTETR[place] [address] Social History Tobacco Use Types Packs/Day Years [...] on filedocumented in this encounter Care Teams Guest Services Coordinator Relationship Specialty Start Date End Date Sue Espinosa PA [address] [place] [id number] PCP - General Family Medicine 11/09/20 02/14/22 documented as of this encounter
--- OUTSIDE RECORDS SUMMARY | 2024-01-02 18:41 | XMS_ITS | Encounter Summary ---
Author Organization [facility] Address [facility] [place] [address] Care Team Providers Care Geriatric Aide Name Role Phone Sue Espinosa Primary Care Provider [phone] Reason for Visit * Auth/Cert Specialty Diagnoses / Procedures Referred By Ryan turk Referred To Contact Diagnoses Pelvic mass PELVIC MASS . Procedures PRO EXPLORATORY OF ABDOMEN PRO TOTAL ABDOM HYSTERECTOMY PRO REMOVAL, ABDOMEN LYMPH NODE, STAGING @EXPLORATORY LAPAROTOMY, WITH/WITHOUT BIOPSY(S) (WRVU 12.54) @HYSTERECTOMY, TOTAL ABD., W W/O BSO (WRVU 17.31) @LYMPHADENECTOMY, LIMITED FOR STAGING, RETROPERITONEAL (WRVU 11.38) Referral ID Status Reason Start Date Expiration Date Visits Re quested Visits Authorized [id number] 1 1 Encounter Details Date Type Department Care Team (Latest Contact Info) Description 11/19/2020 10:48 AM EDT - 11/21/2020 2:15 PM EDT Hospital Encounter 1 [place] [address] Aletha Francois MD [facility] [place] [address] Discharge Disposition: Home Social History Tobacco Use [...] Sign Reading Time Taken Comments Blood Pressure 125/68 11/21/2020 7:29 AM EDT Pulse 102 11/19/2020 7:45 PM EDT Temperature 36.8 ??C (98.2 ??F) 11/21/2020 7:29 AM ED T Respiratory Rate 18 11/21/2020 4:35 AM EDT Oxygen Saturation 92% 11/21/2020 7:29 AM EDT Inhaled Oxygen Concentration - - Weight 73.8 kg (162 lb 11.2 oz) 11/21/2020 5:34 AM EDT Height 165.1 cm (5' 5) 11/19/2020 11:1 1 AM EDT Body Mass Index 27.07 11/19/2020 11:11 AM EDT documented in this encounter Discharge Summaries * Citlali Jarvis N - 11/21/2020 11:19 AM EDT Images from the original note were not included. Discharge Summary Patient Name: Dalia Mcfarlane Patient Age: 65 y.o. Language: Uruguayan Race: White Ethnicity: Not nor Admit date: 11/19/2020 Discharge date and time: 11/21/20 Attending Physician: Aletha Francois MD Discharge Physician: Aletha Francois MD Follow-up Recommendations for Providers: -Follow-up with Dr. Francois on 12/03/20 at 9:00AM Inpatient Provider Contact Information: Dr. Aletha Francois, [facility] Gynecologic Oncology, Discharge Diagnoses (Hospital Problems) and Secondary Diagnoses (Chronic Problems): Active Hospital Problems Diagnosis ??? Pelvic mass Resolved Hospital Problems No resolved problems to display. There are no active non-hospital problems to display for this patient. Operations/Major Procedures: 11/19/2020 Exploratory laparotomy, total abdominal hysterectomy, bilateral salpingo-oophorectomy, b/lpelvic and para-aortic lymph node sampling, omentectomy, staging biopsies History of Presentation: Dalia is a 65yoF, P0, who endorses acute onset abdominal pain and presented to ED [facility] 11/06/20 associated with some nausea. Patient reports prior episode 10 years earlier and diagnosis with UTI andtreated with antibiotic. CT scan showed pelvic mass. Patient had imaging and puga catheter placed and d/c home. Patient still has pain lower abdomen now described as a 5 of 10. Mild nausea no emesis, bowel movement normal. 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 CA-125: 19.6 / CEA 0.8 / CA 19-9: 17.1 She presents for definitive diagnosis and management. Hospital Course: Dalia Mcfarlane was admitted through Same Day Surgery and underwent the above procedures without complication. EBL was 500mL. Findings were notable for: normal exam under anesthesia, smooth vagina, anterior fixed mass Abdominal survey no ascites, normal omentum, large left adnexal mass 12 cm adherent to posterior cul de sac, and the left sidewall smooth surface, normal appendix, right ovary normal size adherent toright sidewall, no pathologically enlarged lymph node, normal uterus. Left adnexa with nodular internal component Intraoperative rupture of mass with clear serous fluid after washings obatined -Frozen section: high grade carcinoma -No residual pathology at conclusion of procedure Postoperatively the patient was taken to PACU and on POD #0 was transferred to the floor. Post-operative course was uncomplicated. The patient was able to tolerate a regular diet and ambulate without difficulty. Puga catheter was removed on POD#1 and pt was able to void without issue. Their pain was well-controlled on oral medications by the time of discharge. The patient was discharged home on POD #2 in stable condition with follow-up in place. We discussed discharge instructions and plan of care, all questions answered. She was discharged home with a plan for 12 days of Lovenox. Due to their post-operative pain the patient [...] at discharge. Vital signs at Discharge: BP: 125/68, Heart Rate: (!) 102, Temp: 36.8 ??C (98.2 ??F), Resp: 18, BMI (Calculated): 27.12 Height: 165.1 cm (5' 5) (11/19/20 1111) Weight: 73.8 kg (162 lb 11.2 oz) (11/21/20 0534) Functional and Cognitive status: stable Important Studies and Lab Data: Labs: Lab Results Component Value Date WBC 10.3 (H) 11/20/2020 HGB 10.8 (L) 11/20/2020 HCT 32.0 (L) 11/20/2020 MCV 95.8 (H) 11/20/2020 PLATELET 255 11/20/2020 Lab Results Component Value Date NA 138 11/20/2020 K 4.1 11/20/2020 CL 104 11/20/2020 CO2 23 11/20/2020 BUN 7 (L) 11/20/2020 CREATININE 0.78 11/20/2020 GLUCOSE 166 11/20/2020 CALCIUM 8.5 11/20/2020 ESTGFR 80 11/20/2020 No results found for: ALT, AST, GGT, ALKPHOS, BILITOT, BILIDIR, ALBUMIN, PROT Studies: -Frozen section: Left ovary: High-grade carcinoma with extensive tumor necrosis. Left ovary #2: High-grade carcinoma. -Urine cx (indwelling puga) 11/19/20: No growth Pending Studies and Lab Data: Final pathology PENDING Discharge Conditions/Prognosis: stable Discharge to: Home Updated Allergies/ADRs: No Known Allergies Immunizations Given this Hospitalization: There is no immunization history on file for this patient. Discharge Medications: Your Medications New Medications Dose Details acetaminophen 325 mg Tab Commonly known as: Tylenol Take 2 tablets by mouth every 6 hours. 650 mg Quantity: 30 tablet Refills: 1 enoxaparin 40 mg/0.4 mL Syrg Commonly known as: Lovenox Inject 0.4 mLs subcutaneously nightly for 12 days. 40 mg Quantity: 4.8 mL Refills: 0 ibuprofen 600 mg Tab Commonly known as: Advil Take 1 tablet by mouth every 6 hours. 600 mg Quantity: 30 tablet Refills: 12 Continued medications with new dosing Dose Details oxyCODONE 5 mg Tab Commonly known as: Roxicodone Take 1-2 tablets by mouth every 3 hours as needed for Pain. What changed: ?? how much to take ?? when to take this 5-10 mg Quantity: 12 tablet Refills: 0 Continued medications, unchanged Dose Details dimenhyDRINATE 50 mg Tab Commonly known as: Dramamine Take 50 mg by mouth as needed. Pt does take for long car rides maybe 2x per year 50 mg Refills: 0 gabapentin 600 mg Tab Commonly known as: NEURONTIN TAKE ONE TABLET BY MOUTH FOUR TIMES A DAY Refills: 0 lisinopriL 5 mg Tab Commonly known as: Zestril TAKE ONE TABLET BY MOUTH EVERY DAY Refills: 0 Smoking Status at Discharge: Social History Tobacco Use Smoking Status Never Smoker Smokeless Tobacco Never Used Instructions Given to Patient at Discharge: Patient Instructions PATIENT DISCHARGE INSTRUCTIONS Gynecologic Oncology phone number: [phone]. After hours and on weekends please call hospital book jacket cover machine operator at [phone] and ask for Gynecologic Oncologist warehouse operations manager. Call your doctor if you develop: --A fever over 101 degrees --Severe pain --Increasing pain, redness, or discharge at your incision --Heavy vaginal bleeding- soaking through a pad an hour --It is normal to have continuous or intermittent light spotting from the vagina for up to 6 weeks following hysterectomy -Follow-up with Dr. Francois on 12/03/20 at 9:00AM -Please continue enoxaparin (Lovenox) through 12/03/20 to prevent blood clots Activity [...] no breakthrough narcotic pain medication in about 1-4 weeks. 1. Please use ibuprofen (Advil/Motrin) 600mg every 6 hours around the clock (with food) for the next 5-7 days. After that, use as needed. 2. Please use acetaminophen (Tylenol) 650mg every [...] AM Aletha Francois MD Gynecology Oncology at [facility] [place] [place] Arrive at: [facility] [phone] Discharge References/Attachments None Provider Contact Information: [facility] [phone] documented in this encounter Discharge Instructions * Patient Instructions* Citlali Jarvis N - 11/19/2020 3:32 PM EDT Images from the original note were not included. PATIENT DISCHARGE INSTRUCTIONS Gynecologic Oncology phone number: [phone]. After hours and on weekends please call hospital book jacket cover machine operator at [phone] and ask for Gynecologic Oncologist warehouse operations manager. Call your doctor if you develop: --A fever over 101 degrees --Severe pain --Increasing pain, redness, or discharge at your incision --Heavy vaginal bleeding- soaking through a pad an hour --It is normal to have continuous or intermittent light spotting from the vagina for up to 6 weeks following hysterectomy -Follow-up with Dr. Francois on 12/03/20 at 9:00AM -Please continue enoxaparin (Lovenox) through 12/03/20 to prevent blood clots Activity [...] no breakthrough narcotic pain medication in about 1-4 weeks. 1. Please use ibuprofen (Advil/Motrin) 600mg every 6 hours around the clock (with food) for the next 5-7 days. After that, use as needed. 2. Please use acetaminophen (Tylenol) 650mg every [...] Sig Dispensed Refills Start Date End Date acetaminophen (Tylenol) 325 mg Tablet Take 2 tablets by mouth every 6 hours. 30 tablet 1 11/21/2020 gabapentin (NEURONTIN) 600 mg Tablet TAKE ONE TABLET BY MOUTH FOUR TIMES A DAY 11/03/2020 ondansetron (Zofran) 4 mg Tablet Take 1 tablet by mouth every 8 hours as needed. 11/06/2020 12/07/2020 potassium chloride (K-Tab) 20 mEq Tablet Sustained Release Take 1 tablet by mouth daily. 11/06/2020 01/28/2021 enoxaparin (Lovenox) 40 mg/0.4 mL Syringe Inject 0.4 mLs subcutaneously nightly for 12 days. 4.8 mL 11/21/2020 12/03/2020 oxyCODONE (Roxicodone) 5 mg Tablet Take 1-2 tablets by mouth every 3 hours as needed for Pain. 12 tablet 11/21/2020 11/26/2020 ibuprofen (Advil) 600 mg Tablet Take 1 [...] as of this encounter Progress Notes * Rona Nicole - 11/21/2020 2:15 PM EDT Krissy Encounter Note Patient Name: Dalia Mcfarlane : [id number] MR#: [id number] Admit Date: 11/19/2020 10:48 AM Hospital Day 2 days Narrative: Was able to respond to consult request on third attempt. Patient was lying down but invited me to come in and sit down with her and her. Assessment: Patient was very tired but alert. She admitted to being scared at the prospect of what's ahead for treatment. Today's news was difficult; however, she expressed deep gratitude for the compassion shown her by everyone here and the best doctor she's ever had. Patient and her showed strong zachariah, communication and love. Her parting words: I've got this. Intervention and Outcome: Listened attentively to the words and interaction of the couple, spoke of living in the present rather than fearing the future, quoted 2 Jak. 1:7 and closed with prayer and well wishes. Follow-up: No follow-up expected. Time in Direct Care: 30 min. Rona Nicole 11/25/2020 * Rona Nicole - 11/21/2020 2:15 PM EDT Bonded Structures Repairer Encounter Note Patient Name: Dalia Mcfarlane : [id number] MR#: [id number] Admit Date: 11/19/2020 10:48 AM Hospital Day 2 days Narrative: Was able to respond to consult request on third attempt. Patient was lying down but invited me to come in and sit down with her and her. Assessment: Patient was very tired but alert. She admitted to being scared at the prospect of what's ahead for treatment. Today's news was difficult; however, she expressed deep gratitude for the compassion shown her by everyone here and the best doctor she's ever had. Patient and her showed strong zachariah, communication and love. Her parting words: I've got this. Intervention and Outcome: Listened attentively to the words and interaction of the couple, spoke of living in the present rather than fearing the future, quoted 2 Jak. 1:7 and closed with prayer and well wishes. Follow-up: No follow-up expected. Time in Direct Care: 30 min. Rona Nicole 11/25/2020 * Citlali Jarvis N - 11/21/2020 8:37 AM EDT Gynecologic Oncology Progress Note ID: Dalia Mcfarlane is a 65 y.o. 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 Subjective: Dalia is lying in bed this morning, pain well controlled. Puga catheter removed yesterday, voiding spontaneously. Tolerating a regular diet. Excited to go home today. Did have an episode of nauseathis morning which she attributed to a short term increase in pain. Denies chest pain, shortness ofbreath, or calf tenderness. ROS: A 12-point point review of systems performed and negative except as detailed above. Physical Exam: Last value Range last 24 hrs Temperature Temp: 36.8 ??C (98.2 ??F) Temp: [36.5 ??C (97.7 ??F)-37.4 ??C (99.3 ??F)] Heart Rate Heart Rate: (!) 102 Heart Rate: -- Blood Pressure BP: 125/68 BP: (121-150)/(58-76) Respiratory Rate Resp: 18 Resp: [17-18] SpO2 SpO2: 92 % SpO2: [88 %-95 %] Art BP BP (Arterial Line): -- I/O last 3 completed shifts: In: 1998 [P.O.:1280; I.V.:719] Out: 3420 [Urine:3420] No intake/output data recorded. UOP: 400mL overnight Net since admission: +1569 Physical Exam Gen: Appears uncomfortable Heart: Regular rate and rhythm, no murmurs, rubs, or gallops Lungs: Clear to auscultation bilaterally, no wheezes, rales, or rhonchi Abd: active bowel sounds, soft, non-distended, mildly tender to palpation. Incision: well approximated subcuticular suture, no erythema or exudate Ext: warm, well-perfused, no edema bilaterally, SCDs in place and running. Laboratory (Last 24 Hours): None Assessment and Plan: Dalia Mcfarlane is an 65 y.o. woman post operative day #2 s/p above procedurefor suspected high-grade clear cell ovarian cancer. Pain Control: Improved pain control with home gabapentin, Tylenol, ibprofen and oxycodone regimen Cardiac/Heme: History of HTN. Vital signs wnl in light of EBL 500 mL. Currently normotensive and hemodynamically stable. -- Holding home PO Lisinopril 5 mg daily Pulmonary: -- encourage incentive spirometry. Gastrointestinal: +nausea this AM. Tolerating regular diet -- zofran prn nausea. -- colace prn constipation. Genitourinary: Adequate UOP, draining clear urine. -- strict I/Os. -- discontinue Puga catheter when ambulatory. Fluid/ Electrolytes: Tolerating PO intake. ID: Received 2 gm IV Ancef, 500 mg metronidazole preoperatively. Afebrile -- no current concerns Endocrine: No Issues Gynecology: s/p above procedure for high grade clear cell ovarian cancer. -- Postoperative follow-up in 4-6 weeks. Prophylaxis: -- Lovenox 40mg sq daily -- incentive spirometry. -- encourage ambulation. -- SCDs. Disposition: Anticipate discharge today Code Status: Full Code Patient discussed with Dr. Francois, attending MARKET RESEARCH ASSOCIATE Oncologist Citlali Jarvis MD PGY-4 11/21/20 Associated attestation - Aletha Francois MD - 11/23/2020 1:01 PM EDT I have reviewed and concur with the resident's note, exam, and assessment. The patient was seen andexamined by Dr. Francois and all pertinent portions of the history, exam and decision-making for this patient encounter were performed by Dr Francois. Patient tolerated some breakfast and is able to ambulate well. She believes sh has had some flatus,and senses she has more to pass. She has voided without any problems. She is anxious to go dinesh. W reviewed instructions for Lovenox. ABD: incision clan and dry EXT: no edema D/c home. Follow up in person for mor complete discussion pathology and plans for chemotherapy. Aletha Francois MD * Sue Chase, RN - 11/21/2020 6:01 AM EDT OUTCOME EVALUATION NOTE: OUTCOME SUMMARY: Pt is POD2 ex lap, ECTOR-BSO, PLND, and omentectomy. VSS on RA while awake, 1L NC for desats while asleep. No c/o SOB, numbness/tingling. Pt reports 10/10 incisional pain, shahriar toradol and 2x PRN oxycodone given with good effect. Pt reports nausea, PRN zofran given with good effect. Pt is voiding adequate amounts of orange urine. Midline incision, dressing dry/intact. Pt resting between nursing care PLAN MOVING FORWARD: Monitor labs, VS, I&O Pain management Encourage OOB activity DC 11/21? INDIVIDUALIZED FALL PREVENTION INTERVENTIONS: Patient-specific fall risk factors per assessment: [current deficits]: High fall risk - IV therapy,pain, hospital environment, generalized weakness Assistance [level of assistance required for transfers and ambulation]: Ax1 Supervision [direct monitoring required during toileting and ADLs]: Hands on Surveillance [continuous indirect monitoring]: Masimo, call olivo within reach, bed alarm, room nearunit station, purposeful rounding Patient-specific fall prevention interventions for sensory deficits provided, if applicable: CPG GOAL OUTCOME EVALUATION: * MagdiMalorieRona Franco Alyssia - 11/20/2020 4:46 PM EDT Bonded Structures Repairer Encounter Note Patient Name: Dalia Mcfarlane : [id number] MR#: [id number] Admit Date: 11/19/2020 10:48 AM Hospital Day 1 day Narrative: Was able to respond to consult request on third attempt. Patient was lying down but invited me to come in and sit down with her and her. Assessment: Patient was very tired but alert. She admitted to being scared at the prospect of what's ahead for treatment. Today's news was difficult; however, she expressed deep gratitude for the compassion shown her by everyone here and the best doctor she's ever had. Patient and her showed strong zachariah, communication and love. Her parting words: I've got this. Intervention and Outcome: Listened attentively to the words and interaction of the couple, spoke of living in the present rather than fearing the future, quoted 2 Jak. 1:7 and closed with prayer and well wishes. Follow-up: No follow-up expected. Time in Direct Care: 30 min. Rona Nicole 11/20/2020 * Citlali Jarvis - 11/20/2020 7:09 AM EDT Gynecologic Oncology Progress Note - Post Operative Check ID: Dalia Mcfarlane is a 65 y.o. 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 Subjective: Dalia is lying in bed this morning, looking uncomfortable. She reports she would sell her soul for a pain pill because she does not feel that the SOFTWARE SECURITY ARCHITECT is adequately covering her pain. She has tolerated lele kurt and crackers without nausea or vomiting. She has not ambulated and her Puga catheter remains in place. Denies BM or passage of flatus. Denies chest pain, shortness of breath, or calftenderness. ROS: A 12-point point review of systems performed and negative except as detailed above. Physical Exam: Last value Range last 24 hrs Temperature Temp: 37 ??C (98.6 ??F) Temp: [36.2 ??C (97.2 ??F)-37.6 ??C (99.7 ??F)] Heart Rate Heart Rate: (!) 102 Heart Rate: [84-108] Blood Pressure BP: 121/55 BP: (110-156)/(47-82) Respiratory Rate Resp: 18 Resp: [9-24] SpO2 SpO2: 92 % SpO2: [89 %-100 %] Art BP BP (Arterial Line): -- I/O last 3 completed shifts: In: 5019 [P.O.:600; I.V.:4219; IV Piggyback:200] Out: 2030 [Urine:1530; Blood:500] No intake/output data recorded. UOP: 110mL/ hour overnight Net since admission: +2989 Physical Exam Gen: Appears uncomfortable Heart: Regular rate and rhythm, no murmurs, rubs, or gallops Lungs: Clear to auscultation bilaterally, no wheezes, rales, or rhonchi Abd: active bowel sounds, soft, non-distended, mildly tender to palpation. Incision: vertical midline incision - with dressing in place. Very minimal shadowing on dressing : Puga catheter in place draining clear yellow urine. Pelvic: Vaginal bleeding noted to be minimal on fabian-pad Ext: warm, well-perfused, no edema bilaterally, SCDs in place and running. Laboratory (Last 24 Hours): Labs pending this AM. Assessment and Plan: Dalia Mcfarlane is an 65 y.o. woman post operative day #1 s/p above procedurefor suspected high-grade clear cell ovarian cancer. Patient is doing ok this AM; hemodynamically stable, with adequate pain control and UOP, tolerating PO. Please see systems-based assessment below. Pain Control: Poor pain control with Tylenol, Toradol, TAP block and Dilaudid SOFTWARE SECURITY ARCHITECT, per pt. SOFTWARE SECURITY ARCHITECT interval was decreased last night to allow more frequent dosing overnight. Complains of 10/10 pain for all recorded values in the Pain Accordion. Received 2.4mg Dilaudid via SOFTWARE SECURITY ARCHITECT overnight. -- restart home gabapentin of 600mg QID -- will write for oxycodone 5-10mg q3h this AM, with plan to transition to oral and decrease use ofPCA -- transition to PO pain meds when able to take adequate PO Cardiac/Heme: History of HTN. Vital signs wnl in light of EBL 500 mL. Currently normotensive and hemodynamically stable. -- CBC pending for am. -- Holding home PO Lisinopril 5 mg daily Pulmonary: Adequate O2 sats on 1 Liter nasal cannula oxygen, removed at bedside and satting well onroom air. -- wean to maintain saturation >92%. -- encourage incentive spirometry. Gastrointestinal: Denies nausea, vomiting. Tolerating crackers and lele kurt. -- advance diet as tolerated, regular diet ordered. -- zofran prn nausea. -- colace prn constipation. Genitourinary: Adequate UOP, draining clear urine. -- strict I/Os. -- discontinue Puga catheter when ambulatory. Fluid/ Electrolytes: Tolerating PO intake. LR running at 100mL/h, -- Lytes pending for AM. -- Discontinue intravenous fluid when taking adequate PO. ID: Received 2 gm IV Ancef, 500 mg metronidazole preoperatively. Afebrile -- no current concerns Endocrine: No Issues Gynecology: s/p above procedure for high grade clear cell ovarian cancer. -- Postoperative follow-up in 4-6 weeks. Prophylaxis: -- Lovenox 40mg sq daily, starting tonight -- incentive spirometry. -- encourage ambulation. -- SCDs. Disposition: Continues to require inpatient hospitalization. Code Status: Full Code Patient discussed with Dr. Francois, attending MARKET RESEARCH ASSOCIATE Oncologist Citlali Jarvis MD PGY-4 11/20/20 Associated attestation - Aletha Francois MD - 11/20/2020 2:45 PM EDT I have reviewed and concur with the resident's note, exam, and assessment. The patient was seen andexamined by Dr. Francois and all pertinent portions of the history, exam and decision-making for this patient encounter were performed by Dr Francois. Patient doing well today, tolerated diet and ambulated on unit. D/w patient surgery and findings with ovarian cancer and plans for chemotherapy. Questions answered. * Sue Chase RN - 11/20/2020 6:30 AM EDT OUTCOME EVALUATION NOTE: OUTCOME SUMMARY: Pt is POD1 exploratory laparotomy, total abd hysterectomy, bilat salpingo- oophrectomy, bilat pelvicand paraaortic lymph node dissection, and omentectomy. VSS on RA while awake, 1L NC for desats while asleep. No c/o SOB, numbness/tingling. Pt reports 10/10 incisional pain poorly controlled with curr ent pain regimen, MD aware. Puga in place draining adequate amount of clear orange urine, puga care completed per policy. Midline incision, small amount of drainage on dressing, area marked. Pt resting between nursing care. PLAN MOVING FORWARD: Monitor labs, VS, I&O Pain management Continue IVF INDIVIDUALIZED FALL PREVENTION INTERVENTIONS: Patient-specific fall risk factors per assessment: [current deficits]: High fall risk - pain, IV therapy, hospital environment Assistance [level of assistance required for transfers and ambulation]: Ax2 Supervision [direct monitoring required during toileting and ADLs]: Hands on Surveillance [continuous indirect monitoring]: Masimo, bed alarm, call olivo within reach, room nearunit station, purposeful rounding Patient-specific fall prevention interventions for sensory deficits provided, if applicable: CPG GOAL OUTCOME EVALUATION: * Kendal Stanley MD - 11/19/2020 10:51 PM EDT Gynecologic Oncology Progress Note - Post Operative Check ID: Dalia Mcfarlane is an 65 y.o. 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 Intraoperative Events: -EBL 500 mL Findings: normal exam under anesthesia, smooth vagina, anterior fixed mass Abdominal survey no ascites, normal omentum, large left adnexal mass 12 cm adherent to posterior cul de sac, and the left sidewall smooth surface, normal appendix, right ovary normal size adherent toright sidewall, no pathologically enlarged lymph node, normal uterus Left adnexa with nodular internal component Intraoperative rupture of mass with clear serous fluid after washings obatined Frozen section: high grade carcinoma No residual pathology at conclusion procedure Subjective: Dalia is lying in bed, watching television and eating crackers and drinking lele kurt. She states they treat you like a kelly in this hospital. She reports that she is doing well with the TAP block and Dilaudid SOFTWARE SECURITY ARCHITECT for pain control . She has no specific complaints and her pain is well controlled with the above measures and Tylenol, ibuprofen, and Dilaudid SOFTWARE SECURITY ARCHITECT. She has tolerated lele kurt andcrackers without nausea or vomiting. She has not ambulated and her Puga catheter remains in place.Denies BM or passage of flatus. Denies chest pain, shortness of breath, or calf tenderness. ROS: A 12-point point review of systems performed and negative except as detailed above. Physical Exam: Last value Range last 24 hrs Temperature Temp: 37 ??C (98.6 ??F) Temp: [36.2 ??C (97.2 ??F)-37.6 ??C (99.7 ??F)] Heart Rate Heart Rate: (!) 102 Heart Rate: [84-108] Blood Pressure BP: 118/53 BP: (110-156)/(47-82) Respiratory Rate Resp: 18 Resp: [9-24] SpO2 SpO2: 93 % SpO2: [89 %-100 %] Art BP BP (Arterial Line): -- I/O last 3 completed shifts: In: 3700 [I.V.:3500; IV Piggyback:200] Out: 710 [Urine:210; Blood:500] I/O this shift: In: 577 [I.V.:577] Out: 770 [Urine:770] UOP: 102mL/ hour (recorded over 4 hours). Net since admission: +2297mL Physical Exam Gen: Appears well, no acute distress Heart: Regular rate and rhythm, no murmurs, rubs, or gallops Lungs: Clear to auscultation bilaterally, no wheezes, rales, or rhonchi Abd: active bowel sounds, soft, non-distended, mildly tender to palpation. Incision: vertical midline incision - with dressing in place. C/D/I : Puga catheter in place draining clear yellow urine. Pelvic: Vaginal bleeding noted to be minimal on fabian-pad Ext: warm, well-perfused, no edema bilaterally, SCDs in place and running. Laboratory (Last 24 Hours): Labs pending for AM. Assessment and Plan: Dalia Mcfarlane is an 65 y.o. woman post operative day #0 s/p above procedurefor suspected high-grade clear cell ovarian cacner. Patient is doing well in the immediate postoperative period; hemodynamically stable, with adequate pain control and UOP, tolerating PO. Please see systems-based assessment below. Pain Control: Adequate pain control with Tylenol, Toradol, TAP block and Dilaudid SOFTWARE SECURITY ARCHITECT. -- transition to PO pain meds when able to take adequate PO Cardiac/Heme: History of HTN. Vital signs wnl in light of EBL 500 mL. Currently normotensive and hemodynamically stable. -- CBC pending for am. -- Holding home PO Lisinopril 5 mg daily Pulmonary: Adequate O2 sats on 2 Liters nasal cannula oxygen, removed at bedside and satting well on room air. -- wean to maintain saturation >92%. -- encourage incentive spirometry. Gastrointestinal: Denies nausea, vomiting. Tolerating crackers and lele kurt. -- advance diet as tolerated, regular diet ordered. -- zofran prn nausea. -- colace prn constipation. Genitourinary: Adequate UOP, draining clear urine. -- strict I/Os. -- discontinue Puga catheter when ambulatory. Fluid/ Electrolytes: Tolerating PO intake. LR running at 100mL/h, -- Lytes pending for AM. -- Discontinue intravenous fluid when taking adequate PO. ID: Received 2 gm IV Ancef, 500 mg metronidazole preoperatively. Afebrile -- no current concerns Endocrine: No Issues Gynecology: s/p above procedure for high grade clear cell ovarian cancer. -- Postoperative follow-up in 4-6 weeks. Prophylaxis: -- Lovenox 40mg sq daily. -- incentive spirometry. -- encourage ambulation. -- SCDs. Disposition: Continues to require inpatient hospitalization. Code Status: Full Code Kendal Stanley MD PGY-3 11/20/20 * Dalia Jimenez RN - 11/19/2020 6:04 PM EDT 1745 : Patient received from operating room, alarms on and set appropriate for patient, vs's, patient complaining of abdominal pain, medicated with hydromorphone iv [id number] : barrel assembler initiated, instruction given to patient, understands, vs's, patient states pain improved. 1999 : Patient meets transfer criteria, vs's, report given to floor, bed not cleaned yet. documented in this encounter H&P Notes * Shraddha Mack PA - 11/19/2020 11:53 AM EDT Inpatient Gynecologic Oncology - Admission Interval Note I have reviewed the pre-procedure H&P completed by Dr. Francois on 11/13/20. Condition unchanged since H&P originally performed. Interval Note: No changes since seeing Dr. Francois. No fevers/chills, sob, cough, heart racing or palpitations. -She took her lisinopril last night, gabapentin 600mg 4x/day- did not take today. Exam: Vitals 37.6 / 149/66 / 101 / 18 / 97% RA Gen: Lying in bed, NAD, pleasant and cooperative Heart: RRR Lung: CTA b/l, no crackles or wheezes Ext: No b/l le edema Puga draining clear, light-yellow colored urine FS: 92 COVID19 screen ordered A/P: Surgical consent reviewed with patient, discussed risks/benefits/alternatives, all questions answered. Reviewed consent signed and placed in chart, all questions answered. Okay to proceed to OR. Hibiclens: performed at home last night and this morning Abx prophy: cefazolin 2g + metronidazole 500mg VTE prophy: heparin + SCDs Opioid risk counseling and consent I counseled the patient about risks of opioids including addiction, overdose, diversion. I reviewedproper disposal of unused medications. They signed the consent form for treatment of acute pain with opioid medications. [place] Risk [place] in [place] Shraddha Mack PA-C Gynecologic Oncology [id number] / Testing Director Onc [id number] documented in this encounter Nursing Notes * Stacey Huggins RN - 11/19/2020 10:44 PM EDT 1999-Received report from YVES Gómez. Pt resting comfortably at this time. 2199-Pt reminded to push SOFTWARE SECURITY ARCHITECT button when in pain. Pt now watching tv and eating crackers. 2244- Tofte at the bedside rounding documented in this encounter Miscellaneous Notes * Plan of Care - Liat Chin RN - 11/21/2020 2:02 PM EDT OUTCOME EVALUATION NOTE: OUTCOME SUMMARY: Dalia is A+O x4 POD 2 ex lap ECTOR. Pt cont to c/o abd incision pain 12/20. Managed well with scheduled tylenol, toradol, and oxycodone. Abd dressing removed, incision site O to A, D+I. Pt cleared for discharge, getting OOB and moving about independently. Discharge instructions and medications reviewed with good understanding and acceptance verbalized. in to olive picker scripts from [facility] pharmacy. verbalizes confidence giving lovenox injections. Pt sent to D/C in with transport. PLAN MOVING FORWARD: Home on lovenox Follow up with [facility] * Initial Assessments - Bib Eaton RN - 11/20/2020 1:40 PM EDT Office of Care Management Initial Assessment Bib Eaton RN reviewed record and discussed patient with Care Team. Source of Information: Team, bedside nurse, medical record, and Patient Introduced self/reviewed role; services accepted. Reason for Hospitalization: I had surgery Last COVID test: Lab Results Component Value Date [id number] Not Detected 11/19/2020 Past medical History: Past Medical History: Diagnosis Date ??? Chronic pain in abdomen ??? High blood pressure controlled with medication ??? Motion sickness pt states car sickness Hospitalizations Within the Past 30 Days: no previous admission in last 30 days Current Decision-Making Capacity: Self Advance Care Planning: Attempt Cardiopulmonary Resuscitation - Inpatient Received -Advanced Directive: Yes, on file Who is your DPOA-HC?: Spouse Current Coping/Education/Information Needs: patient appears to understand hospital course Current Functional Ability: Independent, Assistive Equipment Functional Status Prior to Admission: Independent Home Environment: Others in the home: spouse. Current Living Arrangements: home/apartment/condo. Accessibility Concerns:one level, no steps to enter. Current DME: cane - straight, grab bar - toilet, grab bar - tub/shower, walker - standard Home Address confirmed as: [address] [place] [id number] Social & Family Supports: All names listed below confirmed with patient as current and correct Extended Emergency Contact Information Primary Emergency Contact: Zaheer Mcfarlane Relation: Spouse Current Care Provided by: self Provides Primary Care For: no one Caregiver if needed: none Quality of Family relationships: supportive Community Resources being provided currently: none Behavioral Health History: none Substance Use/Abuse : Social History Tobacco Use Smoking Status Never Smoker In the past year have you used an illegal drug or used a prescription medication for non-medical reaons?: No 0 No problems reported 1-2 Low level 3-5 Moderate level 6-8 Substantial level 9- 10 Severe level In the past year have you had 4 or more drinks a day containing alcohol?: No 0 to 7 points: Low risk 8 to 15 points: Medium risk 16 to 19 points: High risk 20 to 40 points: Addiction likely Other Pertinent/Service Specific Information: patient reports her takes very good care of her. Health/Prescription Coverage: Primary Insurance: MEDICARE Payor: MEDICARE / Plan: MEDICARE PART A & B / Product Type: *No Product type* / Secondary Insurance: N/A Prescription Coverage: Yes Preferred Pharmacy: [id number] - [place], [place] - [address] [place] [id number] Status: Patient is a : No Primary Care Provider: BAILEY Cannon [phone] Patient/Caregiver Goals of Treatment: return home tomorrow with her Potential Needs for Transition of Care: none Agency Referrals: Not needed per patient, no choice made Transportation: no concerns Transportation Anticipated: family or friend will provide Concerns to be Addressed: no discharge needs identified Assessment: Patient is admitted to [facility] service for surgery Plan: discharge to home tomorrow with family, no needs identified A member of the Care Management team will continue to monitor progress, follow for continuity of care and assist with transition of care planning. Bib Eaton RN CM Pager [phone] * Brief Op Note - Aletha Francois MD - 11/19/2020 5:37 PM EDT Brief Operative Note Patient Name: Dalia Mcfarlane : [id number] MR#: [id number] Case Date: 11/19/2020 Surgeon: Surgeon(s) and Role: * Aletha Francois MD - Primary * Phyllis Trivedi MD - Assisting Attending Preoperative diagnosis: PELVIC MASS Postoperative diagnosis: PELVIC MASS Procedure(s) (LRB): @LYMPHADENECTOMY, LIMITED FOR STAGING, RETROPERITONEAL (WRVU 11.38) (N/A) @HYSTERECTOMY, ECTOR, BSO, DEBULKING (WRVU 34.13) (N/A) Anesthesia: General Findings: normal exam under anesthesia, smooth vagina, anterior fixed mass Abdominal survey no ascites, normal omentum, large left adnexal mass 12 cm adherent to posterior cul de sac, and the left sidewall smooth surface, normal appendix, right ovary normal size adherent toright sidewall, no pathologically enlarged lymph node, normal uterus Left adnexa with nodular internal component Intraoperative rupture of mass with clear serous fluid after washings obatined Frozen section: high grade carcinoma No residual pathology at conclusion procedure Complications: none Intake: Intraprocedure Crystalloid Total Intake Lactated Ringers 3000.00 mL ceFAZolin (Ancef) 2 g in dextrose 5% 100 mL (2 x 1 g/50 mL premix bags) infusion 100.00 mL metroNIDAZOLE (Flagyl) 500 mg in sodium chloride 0.9% 100 mL infusion 100.00 mL Total Intake 3200 mL Output Urine Output 150 mL Blood Loss 500 mL Total Output 650 mL Net Net Volume 2550 mL Transfusion No data found in the last 1 encounters. Output: Estimated Blood Loss: 500 mL Urine Output:: 120 mL Other Output: (no other output recorded) Drains: Puga Specimens removed during surgery: Order Name Source Comment Collection Info Order Time CYTOPATHOLOGY NON-GYNECOLOGICAL Total abdominal hysterectomy with staging 11/19/2020 2:26 PM Pertinent clinical data and significant therapy: PELVIC MASS Clinical impression: PELVIC MASS Procedure Type: Other (please specify in Comments Field below) Specimen Type: Pelvic wash SPECIMEN TO PATHOLOGY Left ovary for frozen section OR #`[id number] Pelvic mass Left Ovary excision YES, Please perform frozen section 11/19/2020 2:46 PM Number of tissue samples (in container) 1 Time specimen removed from patient: 2:40 PM SPECIMEN TO PATHOLOGY pelvic mass right tube and ovary excision No 11/19/2020 2:57 PM Time specimen removed from patient: 2:56 PM Number of tissue samples (in container) 1 SPECIMEN TO PATHOLOGY pelvic mass left ovary #2 excision 11/19/2020 2:59 PM Number of tissue samples (in container) 1 Time specimen removed from patient: 2:58 PM SPECIMEN TO PATHOLOGY pelvic mass left tube excision 11/19/2020 3:02 PM Time specimen removed from patient: 2:59 PM Number of tissue samples (in container) 1 PATHOLOGY ORDER UPDATE 11/19/2020 3:09 PM Additional information: Correction Enter requested changes: Frozen section - left ovary number 2 eD-H Order Id number [id number] SPECIMEN TO PATHOLOGY pelvic mass left ovary #3 excision 11/19/2020 3:10 PM Time specimen removed from patient: 3:10 PM Number of tissue samples (in container) 1 SPECIMEN TO PATHOLOGY pelvic mass uterus and cervix excision 11/19/2020 3:10 PM Time specimen removed from patient: 3:10 PM Number of tissue samples (in container) 1 SPECIMEN TO PATHOLOGY left uteral sacral nodule pelvic mass left uteral sacral nodule excision 11/19/2020 3:12 PM Time specimen removed from patient: 3:12 PM Number of tissue samples (in container) 1 SPECIMEN TO PATHOLOGY pelvic mass left gutter biopsy excision 11/19/2020 3:18 PM Time specimen removed from patient: 3:16 PM Number of tissue samples (in container) 1 SPECIMEN TO PATHOLOGY pelvic mass right gutter biopsy excision 11/19/2020 3:18 PM Time specimen removed from patient: 3:16 PM Number of tissue samples (in container) 1 SPECIMEN TO PATHOLOGY pelvic mass bladder biopsy excision 11/19/2020 3:18 PM Time specimen removed from patient: 3:17 PM Number of tissue samples (in container) 1 SPECIMEN TO PATHOLOGY pelvic mass left pelvic lymph nodes excision 11/19/2020 3:18 PM Time specimen removed from patient: 3:17 PM Number of tissue samples (in container) 1 SPECIMEN TO PATHOLOGY pelvic mass left periaortic lymph node excision 11/19/2020 3:46 PM Time specimen removed from patient: 3:44 PM Number of tissue samples (in container) 1 SPECIMEN TO PATHOLOGY pelvic mass right pelvic lymph node excision 11/19/2020 3:46 PM Time specimen removed from patient: 3:45 PM Number of tissue samples (in container) 1 SPECIMEN TO PATHOLOGY pelvic mass omentum #1 excision 11/19/2020 4:08 PM Time specimen removed from patient: 4:07 PM Number of tissue samples (in container) 1 SPECIMEN TO PATHOLOGY pelvic mass omentum #2 excision 11/19/2020 4:08 PM Time specimen removed from patient: 4:07 PM Number of tissue samples (in container) 1 SPECIMEN TO PATHOLOGY pelvic mass left diaphragm excision 11/19/2020 4:11 PM Time specimen removed from patient: 4:10 PM Number of tissue samples (in container) 1 SPECIMEN TO PATHOLOGY pelvic mass right diaphragm excision 11/19/2020 4:11 PM Time specimen removed from patient: 4:11 PM Number of tissue samples (in container) 1 SPECIMEN TO PATHOLOGY pelvic mass omentum #3 excision 11/19/2020 4:17 PM Time specimen removed from patient: 4:15 PM Number of tissue samples (in container) 1 Disposition: awakened from anesthesia, extubated and taken to the recovery room in a stable condition, having suffered no apparent untoward event. Condition: doing well without problems Attestation: Case Date: 11/19/2020 I performed this procedure without the involvement of a resident. (Please see the Surgical Encounter Summary for any Implant and Specimen details pertinent to this patient.) Infection Bundle used? Yes Infection present at time of surgery?: No Chlorhexidine wipes in Same Day prior to surgery: Yes Expected bowel surgery? No. Fingerstick glucose checked in Same Day: Yes Chlorhexidine-alcohol skin prep: Yes Pre-op IV antibiotics: Cefazolin + Metronidazole Vaginal prep: Yes. Chlorhexidine Open case? Yes. 10% Povidone Iodine wound Irrigation: Yes Sterile closure tray: Yes New suction/cautery for closure: Yes Gown/glove change for closure: Yes Re-draping for closure: Yes * Op Note - Aletha Francois MD - 11/19/2020 2:05 PM EDT [facility] [place], [place] Operative Note Patient Name: Dalia Mcfarlane : [id number] MR#: [id number] Case Date: 11/19/2020 Surgeon: Surgeon(s) and Role: * Aletha Francois MD - Primary * Phyllis Trivedi MD - Assisting Attending Preoperative diagnosis: PELVIC MASS Postoperative diagnosis: PELVIC MASS Procedure(s) (LRB): @LYMPHADENECTOMY, LIMITED FOR STAGING, RETROPERITONEAL (WRVU 11.38) (N/A) @HYSTERECTOMY, ECTOR, BSO, DEBULKING (WRVU 34.13) (N/A) Anesthesia: General Estimated Blood Loss: 500 mL Specimens removed during surgery: Order Name Source Comment Collection Info Order Time CYTOPATHOLOGY NON-GYNECOLOGICAL Total abdominal hysterectomy with staging 11/19/2020 2:26 PM Pertinent clinical data and significant therapy: PELVIC MASS Clinical impression: PELVIC MASS Procedure Type: Other (please specify in Comments Field below) Specimen Type: Pelvic wash SPECIMEN TO PATHOLOGY Left ovary for frozen section OR #`[id number] Pelvic mass Left Ovary excision YES, Please perform frozen section 11/19/2020 2:46 PM Number of tissue samples (in container) 1 Time specimen removed from patient: 2:40 PM SPECIMEN TO PATHOLOGY pelvic mass right tube and ovary excision No 11/19/2020 2:57 PM Time specimen removed from patient: 2:56 PM Number of tissue samples (in container) 1 SPECIMEN TO PATHOLOGY pelvic mass left ovary #2 excision 11/19/2020 2:59 PM Number of tissue samples (in container) 1 Time specimen removed from patient: 2:58 PM SPECIMEN TO PATHOLOGY pelvic mass left tube excision 11/19/2020 3:02 PM Time specimen removed from patient: 2:59 PM Number of tissue samples (in container) 1 SPECIMEN TO PATHOLOGY pelvic mass left ovary #3 excision 11/19/2020 3:10 PM Time specimen removed from patient: 3:10 PM Number of tissue samples (in container) 1 SPECIMEN TO PATHOLOGY pelvic mass uterus and cervix excision 11/19/2020 3:10 PM Time specimen removed from patient: 3:10 PM Number of tissue samples (in container) 1 SPECIMEN TO PATHOLOGY left uteral sacral nodule pelvic mass left uteral sacral nodule excision 11/19/2020 3:12 PM Time specimen removed from patient: 3:12 PM Number of tissue samples (in container) 1 SPECIMEN TO PATHOLOGY pelvic mass left gutter biopsy excision 11/19/2020 3:18 PM Time specimen removed from patient: 3:16 PM Number of tissue samples (in container) 1 SPECIMEN TO PATHOLOGY pelvic mass right gutter biopsy excision 11/19/2020 3:18 PM Time specimen removed from patient: 3:16 PM Number of tissue samples (in container) 1 SPECIMEN TO PATHOLOGY pelvic mass bladder biopsy excision 11/19/2020 3:18 PM Time specimen removed from patient: 3:17 PM Number of tissue samples (in container) 1 SPECIMEN TO PATHOLOGY pelvic mass left pelvic lymph nodes excision 11/19/2020 3:18 PM Time specimen removed from patient: 3:17 PM Number of tissue samples (in container) 1 SPECIMEN TO PATHOLOGY pelvic mass left periaortic lymph node excision 11/19/2020 3:46 PM Time specimen removed from patient: 3:44 PM Number of tissue samples (in container) 1 SPECIMEN TO PATHOLOGY pelvic mass right pelvic lymph node excision 11/19/2020 3:46 PM Time specimen removed from patient: 3:45 PM Number of tissue samples (in container) 1 SPECIMEN TO PATHOLOGY pelvic mass omentum #1 excision 11/19/2020 4:08 PM Time specimen removed from patient: 4:07 PM Number of tissue samples (in container) 1 SPECIMEN TO PATHOLOGY pelvic mass omentum #2 excision 11/19/2020 4:08 PM Time specimen removed from patient: 4:07 PM Number of tissue samples (in container) 1 SPECIMEN TO PATHOLOGY pelvic mass left diaphragm excision 11/19/2020 4:11 PM Time specimen removed from patient: 4:10 PM Number of tissue samples (in container) 1 SPECIMEN TO PATHOLOGY pelvic mass right diaphragm excision 11/19/2020 4:11 PM Time specimen removed from patient: 4:11 PM Number of tissue samples (in container) 1 SPECIMEN TO PATHOLOGY pelvic mass omentum #3 excision 11/19/2020 4:17 PM Time specimen removed from patient: 4:15 PM Number of tissue samples (in container) 1 Drains: Puga Surgical Closure: Primary Closure - skin incision is completely closed without any wires, corazon, drains or other devices Disposition: awakened from anesthesia, extubated and taken to the recovery room in a stable condition, having suffered no apparent untoward event. Condition: doing well without problems (Please see the Surgical Encounter Summary for any Implant and Specimen details pertinent to this patient.) HPI/Surgical Indications: 65 year old female who presented with cute pin, urinary retention. Patient seen in ED at outside hospital and had puga catheter placed. Patient counseled regarding options and is here for definitve management today. Procedure Description: OPERATIVE PROCEDURE IN DETAIL: The patient was taken to the operating room, and she received Ancef 2 grams and flagyl 500 mg for preoperative antibiotics. Sequential compression devices were placed on the bilateral lower extremities in addition to heparin for DVT prophylaxis. General endotracheal anesthesia was administered by without complication. The patient was then positioned in dorsal lithotomy position using Yellofin stirrups with her arms out. All pressure points were carefully padded toprevent neurologic injury. Exam under anesthesia was then performed which demonstrated the findingsas described above. The patient was then prepped and draped in the usual sterile fashion, and a Puga catheter was placed sterilely to decompress the bladder. A urine culture wa sent form te OR giventhe patient requiring a puga catheter for retention. A final time-out was then performed with the entire operating room staff according to hospital policy. A midline vertical skin incision was made from just above the pubic symphysis to 2 cm above the umbilicus with the knife. This was carried down through the underlying subcutaneous tissue using electrocautery. The fascia was then cleared off and incised in the midline. The fascial incision was then extended cephalad and caudad using electrocautery over a tonsil clamp. The left aspect of the fascial incision was then elevated with Danelle clamps, and the underlying rectus muscle dissected off witha combination of blunt dissection and electrocautery. The peritoneum was then grasped with 2 tonsilclamps, and entered sharply with Metzenbaum scissors. Digital palpation of the entry site demonstrated no adhesions or evidence of injury upon entry. The peritoneal incision was then excised cephaladand caudad using electrocautery over a gloved hand, always with good visualization of the bowel andbladder posteriorly. The abdomen and pelvis were then thoroughly explored. A Bookwalter self- retaining retractor was then placed in the usual fashion. The bilateral triple pedicles on the uterus were then grasped with 2 Pean clamps. The left round ligament was suture ligated with 0-Vicryl suture and divided medially using electrocautery. The peritoneal incision was then extended cephalad, parallel and lateral to the left IP ligament in order to open the right retroperitoneal space. The ureter was identified posteriorly and was nondilated and peristaltic. A fenestration was created just underneath the left IP ligament above the ureter. The IP ligament was then doubly clamped with 2 Pean clamps, sharply divided, and ligated with 0-Vicryl free ties x2, with excellent hemostasis. The mass rupture in the process of dissection of the filmy adhesions posteriorly to the cul de sac. After the mass was deflated, a solid portion of the mass was extruded and sent for frozen section. The let sidewall was then opened along the course of the left ureter which was mobilized so the left adherent portion of the left adnexa could be safely mobilized and completely resected. The underlying left mesosalpinx was then divided with electrocautery, and the Pean clamp on the triple pedicle was replaced. The left fallopian tube and ovary were then sharply amputated and handed off the field. This entire mass was sent for frozen section. In a similar fashion the right retroperitoneum was entered through the right round ligament and the right infindibulopelvic ligament was skeletonied and ligated. It was necessary to elevate the right adnexa off the right sidewall after identifying and mobilizing the right ureter . The right mesosalpinx was also divided with electrocautery and the left fallopian tube and ovary were sharply amputated from the uterus and handed off the field. With the bladder mobilized, the bilateral uterine vessels were clamped with curved Zeppelin clamps at the uterine isthmus and Danelle clamps were placed for backbleeding. The uterine vessels were thensharply divided with Howe scissors and suture ligated with 0-Vicryl suture x2 bilaterally with goodhemostasis. Given the tumor in the posterior cul-de-sac and left uterosacral ligament, the rectovaginal septum was entered bluntly to facilitate the hysterectomy by dropping the rectum away. StraightZeppelin clamps were then used to clamp, sharply divided, and suture ligate the bilateral cardinal ligaments, taking care to stay as close to the cervix as possible. This was performed bilaterally unt il the cervical vaginal junction was reached. Curved Zeppelin clamps were then placed across the cervical vaginal junction and the cervix was amputated from the upper vagina using Howe scissors, and the uterus and cervix were then handed off the field. The vaginal cuff was then reapproximated using 0-Vicryl with Dahiana stitches at the angles. Two additional interrupted ucnutc-xh-nyvry sutures were placed on the intervening vaginal cuff to ensure an excellent cuff closure. peritoneal biopsy were taken as ar of staging n te right and left and midline. The residual adhesions of the left ovary to the cul de sac was also resected and sent as left uterosacral nodule. There was no residual pathology at the conclusion of the surgery. The bilateral retroperitoneal spaces were opened further. There was no palpable adenopathy. A left pelvic lymph node dissection was performed from the lateral border of the superior vesical artery tothe circumflex vein to the external iliac artery with removal of all lymph node bearing tissue. Theobturator space ws then opened and the obturator nerve was exposed and the lymphatic tissue above the nerve was removed. All lymph node were sent to pathology. The same procedure was performed on theeitgh side. Left PA nodes were resescted by elevating the peritoneal edge to safeguard the left ureter and exposing the edge of the psoas muscle and dissecting tissue off the left common artery in a c ephalad fashion using cautery and clips for hemostasis. The bed of lymph node dissections were inspected and dry. Surgicel was placed into the beds of dissection. We then proceeded with infracolic omentectomy. There were some filmy adhesions of the omentum whichwere divided carefully in layers using electrocautery over a gloved hand, always with good visualization of the transverse colon. The avascular posterior leaf of the omentum was then incised with electrocautery starting from the hepatic flexure to in order drop the colon and the mesentery off of the omentum. The infracolic omentum was then fenestrated serially and the vascular pedicles were sequentially clamped with Pean clamps, divided sharply with Howe scissors, and ligated with 0-Vicryl freeties with good hemostasis. This was performed in order to completely excise the entire infracolic omentum, always with good visualization of the bowel and its mesentery. Inspection of the lesser sac revealed that there was no tumor there. Reinspection of the omentectomy bed demonstrated good hemostasis. All irrigant was suctioned, and hemostasis confirmed at all sites. There was some oozing from the left pelvic sidewall that was made hemostatic and floseal was then placed along the left cul-de-sac and vaginal cuff. All instruments and sponges were removed from the abdomen and pelvis. Reinspection of the omentectomy bed demonstrated continued hemostasis from the omentectomy. Gloves were exchanged and attention was returned to the abdomen with a closing tray per hysterectomy protocol. The fascia was then reapproximated using 0- looped PDS in a running fashion, taking care to ensure that at least 1 cm of fascia was incorporated with each bite. This was performed with 2 suture starting from the apices and tying in the middle. Povidone solution was placed into the subcutaneus tissue was for one minute and then subcutaneous tissue was irrigated with sterile saline and made hemostatic with electrocautery. Two 2-0 monovicryl-sutures were used to close the space. Theskin was then reapproximated using monocryl. All sponge, needle, and instrument counts reported correct according to the operating staff. There were no complications of the operation. The patient tolerated procedure well and was awakened from anesthesia without difficulty. She was taken to recovery room in stable condition. Dr. Aletha Francois, the attending of record, was present and scrubbed throughout the entire operation. Infection Bundle used? See brief op note Attestation: Case Date: 11/19/2020 I was present and I participated during the entire procedure (does not need to include opening and closing). Aletha Francois MD 11/19/2020 documented in this encounter Plan of Treatment Not on file documented as of this encounter Procedures Procedure Name Priority Date/Time Associated Diagnosis Comments HEMOGRAM Routine 11/20/2020 8:35 AM EDT DIFFERENTIAL, AUTOMATED Routine 11/20/2020 8:35 AM EDT HC CBC,PLT & AUTO DIFF Routine 8:35 AM EDT HC MAGNESIUM, SERUM Routine 11/20/2020 8 :35 AM EDT HC VENIPUNCTURE Routine 11/20/2020 8:35 AM EDT SPECIMEN TO PATHOLOGY Routine 11/19/2020 4:17 PM EDT SPECIMEN TO PATHOLOGY Routine 11/19/2020 4:11 PM EDT SPECIMEN TO PATHOLOGY Routine 11/19/2020 4:11 PM EDT SPECIMEN TO PATHOLOGY Routine 11/19/2020 4:08 PM EDT SPECIMEN TO PATHOLOGY Routine 11/19/2020 4:08 PM EDT SPECIMEN TO PATHOLOGY Routine 11/19/2020 3:46 PM EDT SPECIMEN TO PATHOLOGY Routine 11/19/2020 3:46 PM EDT RAPID COVID-19 PCR ([facility]) Routine 11/19/2020 3:30 PM EDT SPECIMEN TO PATHOLOGY Routine 11/19/2020 3:18 PM EDT SPECIMEN TO PATHOLOGY Routine 11/19/2020 3:18 PM EDT SPECIMEN TO PATHOLOGY Routine 11/19/2020 3:18 PM EDT SPECIMEN TO PATHOLOGY Routine 11/19/2020 3:18 PM EDT SPECIMEN TO PATHOLOGY Routine 11/19/2020 3:13 PM EDT SPECIMEN TO PATHOLOGY Routine 11/19/2020 3:11 PM EDT SPECIMEN TO PATHOLOGY Routine 11/19/2020 3:11 PM EDT SPECIMEN TO PATHOLOGY Routine 11/19/2020 3:02 PM EDT SPECIMEN TO PATHOLOGY STAT 11/19/2020 2:59 PM EDT SPECIMEN TO PATHOLOGY Routine 11/19/2020 2:57 PM EDT SURGICAL PATHOLOGY REPORT Routine 11/19/2020 2:46 PM EDT SPECIMEN TO PATHOLOGY STAT 11/19/2020 2:46 PM EDT NON-MARKET RESEARCH ASSOCIATE FINAL REPORT Routine 11/19/2020 2:26 PM EDT CYTOPATHOLOGY NON-GYNECOLOGICAL Routine 11/19/2020 2:26 PM EDT HC URINE CULTURE Routine 11/19/2020 2:10 PM EDT Naman Salp-Ooph W/Omentect, Ector, Rad Dissect ([id number]) Yes 11/19/2020 1:20 PM EDT PELVIC MASS Removal, Abdomen Lymph Node, Staging ([id number]) Yes 11/19/2020 1:20 PM EDT PELVIC MASS POCT GLUCOSE Routine 11/19/2020 11:15 AM EDT documented in this encounter Results * (ABNORMAL) Differential, Automated (11/20/2020 8:35 AM EDT) Neutrophil % 89.0 % [facility] Neutrophil Absolute 9.18(H) 1.70 - 6.10 x10(3)/mc L [facility] Lymph % 5.6 % [facility] Lymphocytes Abs 0.6(L) 0.9 - 3.2 x10(3)/mc L [facility] Monocyte % 4.8 % [facility] Monocyte Abs 0.5 0.3 - 0.9 x10(3)/mc L [facility] Eos % 0.0 % [facility] Eosinophils Abs 0.0 0.0 - 0.4 x10(3)/mc L [facility] Basophil % 0.1 % [facility] Baso Absolute 0.0 0.0 - 0.1 x10(3)/mc L [facility] Immature Gran % 0.50 % [facility] Comment: Immature granulocytes(IG's)percentage and absolute count will include metamyelocytes, myelocytes, and promyelocytes. Blood smears from CBCs yielding IG's will be scanned manually for concordance. If this scan disagrees with the automated IG or if promyelocytes are noted, a manual differential will be performed. Immature Gran Absolute 0.05(H) 0.00 - 0.04 x10(3)/mc L [facility] Blood 11/20/2020 8:35 AM EDT 11/20/2020 9:12 AM EDT Narrative Resulting Agency Comment Spec In Lab Shraddha AVALOS HEMATOLOGY ORDERABLE S [facility] [place] [address] * (ABNORMAL) Hemogram (11/20/2020 8:35 AM EDT) White Blood Cell 10.3(H) 4.0 - 9.5 x10(3)/mc L [facility] Red Blood Cell 3.34(L) 4.00 - 5.21 x10(6)/mc L [facility] Hemoglobin 10.8(L) 11.7 - 15.5 gm/dL [facility] Hematocrit 32.0(L) 35.7 - 45.8 % [facility] Mean Cell Volume 95.8(H) 82.6 - 94.4 fL [facility] Mean Cell Hemoglobin 32.3(H) 27.1 - 32.0 pg [facility] Mean Cell Hemoglobin Concentration 33.8 31.7 - 35.0 gm/dL [facility] Platelet 255 145 - 357 x10(3)/mc L [facility] RDW Standard Deviation 41.5 37.0 - 46.0 fL [facility] RDW coefficient of variation 11.9 11.5 - 14.1 % [facility] Mean Platelet Volume 9.5 7.6 - 12.9 fL [facility] NRBC% auto 0.0 % [facility] NRBC Absolute 0.000 0.000 - 0.000 x10(3)/mc L [facility] Blood 11/20/2020 8:35 AM EDT 11/20/2020 9:12 AM EDT Narrative Resulting Agency Comment Spec In Lab Shraddha AVALOS HEMATOLOGY ORDERABLE S Performing Organization Address City/[facility]/ZIP Co de Phone Number [facility] [place] [address] * Magnesium (11/20/2020 8:35 AM EDT) Magnesium 0.75 0.69 - 1.07 mmol/L [facility] Blood 11/20/2020 8:35 AM EDT 11/20/2020 9:12 AM EDT Narrative Resulting Agency Comment Spec In Lab Aletha Francois MD CHEMISTRY ORDERABLES Performing Organization Address City/[facility]/ZIP Co de Phone Number [facility] [place] [address] * (ABNORMAL) Basic Metabolic Panel (non-fasting) (11/20/2020 8:35 AM EDT) Glucose 166 65 - 199 mg/dL [facility] Comment:Diabetes: >=200 mg/d L plus symptoms Blood Urea Nitrogen 7(L) 8 - 18 mg/dL [facility] Creatinine 0.78 0.70 - 1.20 mg/dL [facility] Sodium 138 135 - 145 mmol/L [facility] Potassium 4.1 3.5 - 5.0 mmol/L [facility] Comment: Please note: ??Patients with WBC >100,000 may have falsely elevated Potassium levels. ??For accurate Potassium quantification in these patients send serum separator tube (gold top) for subsequent determinations. ??Contact the Clinical Chemistry Laboratory if there are any questions. Chloride 104 98 - 107 mmol/L [facility] Carbon Dioxide 23 22 - 31 mmol/L [facility] Anion Gap 11 5 - 15 mmol/L [facility] Calcium 8.5 8.5 - 10.5 mg/dL [facility] Est Glomerular Filtration Rate 80 >=60 mL/min/1. 73 m?? [facility] Comment: This patient? s estimated glomerular filtration rate (eGFR) is between 80 mL/min/1.73 m2 (patients with less muscle mass) and 92 mL/min/1.73 m2 (patients with more muscle mass) [...] and symptoms in addition to eGFR. Blood 11/20/2020 8:35 AM EDT 11/20/2020 9:12 AM EDT Narrative Resulting Agency Comment Spec In Lab Aletha Francois MD CHEMISTRY ORDERABLES Performing Organization Address City/[facility]/ZIP Co de Phone Number [facility] [place] [address] * Specimen to Pathology (11/19/2020 4:17 PM EDT) AP Specimen 11/19/2020 4:17 PM EDT 11/19/2020 4:17 PM EDT Narrative [facility] - 11/19/2020 4:17 PM EDT Specimen requisition ordered. ??Separate Pathology report to follow Aletha Francois MD PATHOLOGY/CYTOLOGY O RDERABLES [facility] [place] [address] * Specimen to Pathology (11/19/2020 4:11 PM EDT) AP Specimen 11/19/2020 4:11 PM EDT 11/19/2020 4:11 PM EDT Narrative [facility] - 11/19/2020 4:11 PM EDT Specimen requisition ordered. ??Separate Pathology report to follow Aletha Francois MD PATHOLOGY/CYTOLOGY O RDCANDELARIA Performing Organization Address City/[facility]/ZIP Co de Phone Number [facility] [place] [address] * Specimen to Pathology (11/19/2020 4:11 PM EDT) AP Specimen 11/19/2020 4:11 PM EDT 11/19/2020 4:11 PM EDT Narrative [facility] - 11/19/2020 4:11 PM EDT Specimen requisition ordered. ??Separate Pathology report to follow Aletha Francois MD PATHOLOGY/CYTOLOGY O MIRZA Performing Organization Address [facility] Co de Phone Number [facility] [place] [address] * Specimen to Pathology (11/19/2020 4:08 PM EDT) AP Specimen 11/19/2020 4:08 PM EDT 11/19/2020 4:08 PM EDT Narrative [facility] - 11/19/2020 4:08 PM EDT Specimen requisition ordered. ??Separate Pathology report to follow Aletha Francois MD PATHOLOGY/CYTOLOGY O MIRZA Performing Organization Address [facility]/ZIP Co de Phone Number [facility] [place] [address] * Specimen to Pathology (11/19/2020 4:08 PM EDT) AP Specimen 11/19/2020 4:08 PM EDT 11/19/2020 4:08 PM EDT Narrative [facility] - 11/19/2020 4:08 PM EDT Specimen requisition ordered. ??Separate Pathology report to follow Aletha Francois MD PATHOLOGY/CYTOLOGY O MIRZA Performing Organization Address City/[facility]/ZIP Co de Phone Number [facility] [place] [address] * Specimen to Pathology (11/19/2020 3:46 PM EDT) AP Specimen 11/19/2020 3:46 PM EDT 11/19/2020 3:46 PM EDT Narrative [facility] - 11/19/2020 3:46 PM EDT Specimen requisition ordered. ??Separate Pathology report to follow Aletha Francois MD PATHOLOGY/CYTOLOGY O RDERABLES Performing Organization Address [facility] Co de Phone Number [facility] [place] [address] * Specimen to Pathology (11/19/2020 3:46 PM EDT) AP Specimen 11/19/2020 3:46 PM EDT 11/19/2020 3:46 PM EDT Narrative [facility] - 11/19/2020 3:46 PM EDT Specimen requisition ordered. ??Separate Pathology report to follow Aletha Francois MD PATHOLOGY/CYTOLOGY O RDCANDELARIA Performing Organization Address City/[facility] Co de Phone Number [facility] [place] [address] * COVID-19 PCR (11/19/2020 3:30 PM EDT) SARS-CoV-2 RNA (Rapid) Not Detected Not Detected [facility] Comment: This result should be interpreted [...] using the Simplexa COVID-19 Direct Assay by [employer] as authorized by the FDA issued Emergency [...] Department of Pathology and Laboratory Medicine at [facility], certified under the Clinical Laboratory Improvement [...] fact sheets at the following FDA website: https://www.fda.gov/medical-devices/xvejjksaizx-sfilzsa-3986-bgqmu-90-jphzprysv- use-a euszpyidcbwsz-cgnquum-sdasjar/zoezb-yutqnvkzuos-jyzb SARS-CoV-2 Source CONTRACT [employer]IVER Swab [facility] Nasopharyngeal Swab 11/20/19 3:30 PM EDT 11/19/2020 3:46 PM EDT Comment:Symptoms->Surveillan ce Narrative Resulting Agency Comment Spec In Lab Aletha Francois MD MICROBIOLOGY - GENER AL ORDERABLES [facility] [place] [address] * Specimen to Pathology (11/19/2020 3:18 PM EDT) AP Specimen 11/19/2020 3:18 PM EDT 11/19/2020 3:18 PM EDT Narrative [facility] - 11/19/2020 3:18 PM EDT Specimen requisition ordered. ??Separate Pathology report to follow Aletha Francois MD PATHOLOGY/[place] [address] * Specimen to Pathology (11/19/2020 3:18 PM EDT) AP Specimen 11/19/2020 3:18 PM EDT 11/19/2020 3:18 PM EDT Narrative [facility] - 11/19/2020 3:18 PM EDT Specimen requisition ordered. ??Separate Pathology report to follow Aletha Francois MD PATHOLOGY/CYTOLOGY O MIRZA Performing Organization Address [facility]/[place] [address] * Specimen to Pathology (11/19/2020 3:18 PM EDT) AP Specimen 11/19/2020 3:18 PM EDT 11/19/2020 3:18 PM EDT Narrative [facility] - 11/19/2020 3:18 PM EDT Specimen requisition ordered. ??Separate Pathology report to follow Aletha Francois MD PATHOLOGY/CYTOLOGY O MIRZA Performing Organization Address City/[facility]/[place] [address] * Specimen to Pathology (11/19/2020 3:18 PM EDT) AP Specimen 11/19/2020 3:18 PM EDT 11/19/2020 3:18 PM EDT Narrative [facility] - 11/19/2020 3:18 PM EDT Specimen requisition ordered. ??Separate Pathology report to follow Aletha Francois MD PATHOLOGY/CYTOLOGY O RDCANDELARIA [facility] [place] [address] * Specimen to Pathology (11/19/2020 3:13 PM EDT) AP Specimen 11/19/2020 3:13 PM EDT 11/19/2020 3:13 PM EDT Narrative [facility] - 11/19/2020 3:13 PM EDT Specimen requisition ordered. ??Separate Pathology report to follow Aletha Francois MD PATHOLOGY/CYTOLOGY O RDCANDELARIA [facility] [place] [address] * Specimen to Pathology (11/19/2020 3:11 PM EDT) AP Specimen 11/19/2020 3:11 PM EDT 11/19/2020 3:11 PM EDT Narrative [facility] - 11/19/2020 3:11 PM EDT Specimen requisition ordered. ??Separate Pathology report to follow Aletha Francois MD PATHOLOGY/CYTOLOGY O MIRZA [facility] [place] [address] * Specimen to Pathology (11/19/2020 3:11 PM EDT) AP Specimen 11/19/2020 3:11 PM EDT 11/19/2020 3:11 PM EDT Narrative [facility] - 11/19/2020 3:11 PM EDT Specimen requisition ordered. ??Separate Pathology report to follow Aletha Francois MD PATHOLOGY/[place] [address] * Specimen to Pathology (11/19/2020 3:02 PM EDT) AP Specimen 11/19/2020 3:02 PM EDT 11/19/2020 3:02 PM EDT Narrative [facility] - 11/19/2020 3:02 PM EDT Specimen requisition ordered. ??Separate Pathology report to follow Aletha Francois MD PATHOLOGY/CYTOLOGY O MIRZA Performing Organization Address [facility] [place] [address] * Specimen to Pathology (11/19/2020 2:59 PM EDT) AP Specimen 11/19/2020 2:59 PM EDT 11/19/2020 2:59 PM EDT Narrative [facility] - 11/19/2020 2:59 PM EDT Specimen requisition ordered. ??Separate Pathology report to follow Aletah Francois MD PATHOLOGY/CYTOLOGY O MIRZA Performing Organization Address [facility] Co de Phone Number [facility] [place] [address] * Specimen to Pathology (11/19/2020 2:57 PM EDT) AP Specimen 11/19/2020 2:57 PM EDT 11/19/2020 2:57 PM EDT Narrative [facility] - 11/19/2020 2:57 PM EDT Specimen requisition ordered. ??Separate Pathology report to follow Aletha Francois MD PATHOLOGY/CYTOLOGY O MIRZA Performing Organization Address [facility] [place] [address] * Surgical Pathology Report (11/19/2020 2:46 PM EDT) Final Diagnosis [id number] ? Location: 1WST; 0116; A The signing pathologist has (i) examined the relevant preparation(s) for the specimen(s) and (ii) rendered or confirmed the diagnosis(es). . 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 C - Right fallopian tube and ovary (salpingo-oophore ctomy): ?1. Ovarian and fabian-adnexal endometriosis. ?2. Benign fallopian tube with adhesions ? and paratubal cysts. D - Left fallopian tube (salpingectomy): ?Benign fallopian tube with adhesions ?and paratubal cysts. 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 F - Uterus (hysterectomy): ?1. Benign endometrial polyp. ?2. Adenomyosis. ?3. Benign inactive endometrium. ?4. Uterine serosal adhesions with ? hemosiderin-laden macrophages. ?5. Benign cervix. G - Left uterosacral nodule: ?1. Organizing nodular foci containing ? hemosiderin-laden macrophages. ?2. No evidence of malignancy. H - Left gutter biopsy: ?No evidence of malignancy. I - Right gutter biopsy: ?No evidence of malignancy. J - Bladder biopsy: ?No evidence of malignancy. K - Left pelvic lymph nodes, excision: ?Three lymph nodes, no evidence of malignancy (0/3). L - Left para-aortic lymph nodes, excision: ?Two lymph nodes, no evidence of malignancy (0/2). M - Right pelvic lymph nodes, excision: ?Five lymph nodes, no evidence of malignancy (0/5). . DIAGNOSIS N - Omentum #1: ?No evidence of malignancy. O - Omentum #2: ?No evidence of malignancy. P - Left diaphragm: ?No evidence of malignancy. Q - Right diaphragm: ?No evidence of malignancy. R - Omentum #3: ?1. No evidence of malignancy. ?2. Small benign lymph node. CR-0 Electronically signed by: ?Andres Paige MD Verified: ??12/09/2020 12:56 ??Pathologist Performed at: ??-[facility] [place], [place] Dept. of Pathology, [place], [place] [employer] Specimen ? Procedure: ??Simple hysterectomy; ??Right salpingo-oophorec vivian; ??Left ?oophorectomy; ??Left salpingectomy; ??Omentectomy; ??Peritoneal biopsies; ? Right and left pelvic lymph nodes, excision; Para-aortic lymph nodes, ?excision; Diaphragmatic biopsies ? Specimen Integrity of Left Ovary: ??Capsule ruptured Tumor ? Tumor Site: ??Left ovary ? Histologic Type: ??Clear cell carcinoma ? Tumor Size: ??Cannot be determined - Disrupted and associated with cystic ?endometriosis, at least 10.0 cm ? Ovarian Surface Involvement: ??Present ? Fallopian Tube Surface Involvement: ??Absent ? Other Tissue / Organ Involvement: ??Not identified ? Peritoneal / Ascitic Fluid: ??Negative for malignancy (normal / benign) Lymph Nodes ? Regional Lymph Nodes: ??All lymph nodes negative for tumor cells ? Number of Lymph Nodes Examined: ??10 ?Site(s): ??Right pelvic - 0/5, Left pelvic - 0/3, Left para-aortic - 0/2 Pathologic Stage Classification (pTNM, AJCC 8th Edition) ? Primary Tumor (pT): ??pT1c2 ? Regional Lymph Nodes (pN): ??pN0 FIGO Stage ? FIGO Stage: ??IC2 Tumor Block(s): ??B3, B6, E1 Normal Block(s): ??N/A CAP eCC April 2019 Annual Release DISCUSSION A corrected report is generated to add the FIGO stage to the synoptic report. - JLG 12/09/20 12:55 Scanned slides: [id number] B3-1 [id number] B6-1 [id number] B7-1 [id number] E1-1 SPECIMEN(S) SUBMITTED A - Left ovary, excision ?? for frozen section . SPECIMEN(S) SUBMITTED B - Left ovary #2, resection C - Right tube and ovary, resection D - Left tube, resection E - Left ovary #3, resection F - Uterus and cervix, resection G - Left uterosacral nodule, excision H - Left gutter biopsy I - Right gutter biopsy J - Bladder biopsy K - Left pelvic lymph nodes, excision L - Left para-aortic lymph nodes, excision M - Right pelvic lymph nodes, excision N - Omentum #1, excision O - Omentum #2, excision P - Left diaphragm, biopsy Q - Right diaphragm, biopsy R - Omentum #3, excision CLINICAL INFORMATION Pelvic mass SPECIMEN PROCESSING A - Labeled/Fixative: Left ovary, fresh. Tissue Description: Partial oophorectomy. LEFT OVARY ?? Size: 2.6 x 1.2 x 0.9 cm, 3.0 grams. ?? Outer Surface: Red-brown, smooth. ?? Cut Surface: Heterogeneous and hemorrhagic. The following tissue is submitted for frozen section: Two indirect sales representative sections submitted for frozen section as FS 1. Entirely submitted in 3 cassettes as follows: ?A1: FS 1 ?A2-A3: Remaining tissue B - Labeled/Fixative: Left ovary #2, fresh. Tissue Description: Disrupted, oophorectomy. LEFT OVARY ?? Size: 10.0 x 6.0 x 2.0 cm, 71.0 grams. ?? Outer Surface: [place], smooth with hemorrhagic fibrous adhesions. ?? Cut Surface: Unilocular cystic lesion with a finely granular pink-red ?? lining with a 1.0 cm soft, red excrescence. The wall ranges ?? from 0.2-1.0 cm thick is rubbery with soft white solid areas. The following tissue is submitted for frozen section: Two indirect sales representative sections submitted for frozen section as FS 1. Bakery Worker Conveyor Line sections in 7 cassettes as follows: ?B1: FS 1 ?B2-B7: Bakery Worker Conveyor Line ovary C - Labeled/Fixative: Right tube and ovary, fresh. Tissue Description: Intact salpingo-oophorec vivian. RIGHT OVARY ?? Size: 2.5 x 2.5 x 1.0 cm. ?? Outer Surface: [place], smooth with red hemorrhagic adhesions. ?? Cut Surface: Thick walled unilocular cyst with a finely ?? granular red lining. Right Fallopian Tube: 4.8 x 0.5 x 0.5 cm, fimbriated. . SPECIMEN PROCESSING Bakery Worker Conveyor Line sections in 7 cassettes as follows: ?C1-C4: Bakery Worker Conveyor Line ovary ?C5-C7: Fallopian tube, entirely submitted D - Labeled/Fixative: Left tube, fresh. Tissue Description: Intact salpingectomy. Left Fallopian Tube: 4.8 x 1.5 x 0.8 cm, fimbriated, surface by red hemorrhagic adhesions. Sections/Processi ng: Entirely submitted in 5 cassettes labeled D1-D5. E - Labeled/Fixative: Left ovary #3, fresh. Quantity/Size: Single, 3.0 x 1.5 x 1.5 cm. Tissue Description: Soft, arteaga-white nodular tissue with hemorrhagic adhesions. Sections/Processi ng: Entirely submitted in 3 cassettes labeled E1-E3. F - Labeled/Fixative: Uterus and cervix, fresh. Quantity: Single. Cornu to cornu: 2.6 cm. Anterior to posterior: 1.7 cm. Dome to Cervix: 8.5 cm. Weight (overall): 30.0 grams. Tissue Description: Intact simple hysterectomy. UTERUS Endometrium: 3.2 x 2.0 cm triangular cavity with a smooth pink-white lining averaging 0.1 cm in thickness. Within the dome is a 2.0 x 1.5 cm pink-white pedunculated polyp. Myometrium: Trabecular averaging 1.2 cm in thickness. Within the dome is a 1.5 cm calcified white and yellow intramural nodule. Serosa: [place] with diffuse hemorrhagic adhesions. CERVIX Diameter: 2.0 cm. Os: 0.6 cm, slitlike. Bakery Worker Conveyor Line sections in 6 cassettes as follows: ?F1-F2: Anterior and posterior cervix ?F3-F5: Endometrial polyp, entirely submitted ?F6: Endomyometrium G - Labeled/Fixative: Left uterosacral nodule, fresh. Quantity/Size: Single, 2.0 x 1.3 x 0.4 cm. Tissue Description: Red hemorrhagic membranous tissue. Sections/Processi ng: Bisected and entirely submitted in 1 cassette labeled G1. H - Labeled/Fixative: Left gutter biopsy, fresh. Quantity/Size: Single, 1.0 x 0.8 x 0.3 cm. Tissue Description: Soft, pink fibroadipose tissue. Sections/Processi ng: Bisected and entirely submitted in 1 cassette labeled H1. I - Labeled/Fixative: Right gutter biopsy, fresh. Quantity/Size: Single, 0.6 x 0.5 x 0.2 cm. Tissue Description: Soft, pink fibroadipose tissue. Sections/Processi ng: Bisected and entirely submitted in 1 cassette labeled I1. J - Labeled/Fixative: Bladder biopsy, fresh. Quantity/Size: Single, 0.8 x 0.7 x 0.2 cm. Tissue Description: Soft, pink-red membranous tissue. Sections/Processi ng: Submitted en toto in 1 cassette labeled J1. K - Labeled/Fixative: Left pelvic lymph nodes, fresh. Quantity/Size: Multiple, 4.8 x 3.0 x 1.5 cm. . SPECIMEN PROCESSING Tissue Description: Adipose tissue with three lymph nodes, up to 3.0 cm. The lymph nodes are entirely submitted. Bakery Worker Conveyor Line sections in 6 cassettes as follows: ?K1-K2: One node serially sectioned ?K3-K4: One node serially sectioned ?K5-K6: One node serially sectioned L - Labeled/Fixative: Left para-aortic lymph nodes, fresh. Quantity/Size: Single, 4.0 x 1.8 x 0.8 cm. Tissue Description: Adipose tissue with two lymph nodes, up to 1.7 cm. The lymph nodes are entirely submitted. Bakery Worker Conveyor Line sections in 2 cassettes as follows: ?L1: One node bisected ?L2: One node quadrisected M - Labeled/Fixative: Right pelvic lymph nodes, fresh. Quantity/Size: Multiple, 3.5 x 3.5 x 2.0 cm. Tissue Description: Adipose tissue with five lymph nodes, up to 3.0 cm. The lymph nodes are entirely submitted. Bakery Worker Conveyor Line sections in 5 cassettes as follows: ?M1: One node bisected ?M2: One node bisected ?M3: One node bisected ?M4: One node trisected ?M5: One node bisected N - Labeled/Fixative: Omentum #1, fresh. Quantity/Size: Single, 5.5 x 5.0 x 1.8 cm. Tissue Description: Yellow, lobulated omental fat without gross lesions. Sections/Processi ng: Bakery Worker Conveyor Line sections in 3 cassettes labeled N1-N3. O - Labeled/Fixative: Omentum #2, fresh. Quantity/Size: Single, 8.0 x 5.0 x 2.0 cm. Tissue Description: Yellow, lobulated omental fat without gross lesions. Sections/Processi ng: Bakery Worker Conveyor Line sections in 3 cassettes labeled O1-O3. P - Labeled/Fixative: Left diaphragm, fresh. Quantity/Size: Single, 1.0 x 0.4 x 0.3 cm. Tissue Description: Firm, pink-white tissue. Sections/Processi ng: Submitted en toto in 1 cassette labeled P1. Q - Labeled/Fixative: Right diaphragm, fresh. Quantity/Size: Single, 0.6 x 0.4 x 0.3 cm. Tissue Description: Firm, cauterized arteaga tissue. Sections/Processi ng: Submitted en toto in 1 cassette labeled Q1. R - Labeled/Fixative: Omentum #3, fresh. Quantity/Size: Single, 2.7 x 2.0 x 0.8 cm. Tissue Description: Yellow, lobulated omental fat without gross lesions. Sections/Processi ng: Entirely submitted in 2 cassettes labeled R1-R2. 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 - ELVIA . FROZEN SECTION DIAGNOSIS 11/19/20 15:29 Electronically signed by: ?Andres Paige MD Verified: ??11/19/2020 15:30 ??Pathologist Performed at: ??-[facility] [place], [place] Dept. of Pathology, [place], [place] This intraoperative consultation should be interpreted as a preliminary diagnosis pending review of the entire specimen and special studies, if any. A final Surgical Pathology report will follow this preliminary Frozen Section report(s). 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 - JLG 11/19/20 15:12 Electronically signed by: ?Royal ESPINOSA, Andres Mas Verified: ??11/19/2020 15:16 ??Pathologist Performed at: ??-[facility] [place] [place] Dept. of Pathology, [place], [place] This intraoperative consultation should be interpreted as a preliminary diagnosis pending review of the entire specimen and special studies, if any. A final Surgical Pathology report will follow this preliminary Frozen Section report(s). 12/09/2020 12:56 PM EDT [facility] OMENTUM STRUCTURE / Unknown 11/19/2020 2:46 PM EDT 11/19/2020 2:46 PM EDT OVARIAN PART / Unknown 11/19/2020 2:46 PM EDT 11/19/2020 2:46 PM EDT OVARIAN PART / Unknown 11/19/2020 2:46 PM EDT 11/19/2020 2:46 PM EDT False Vocal Cords, Bilateral 11/19/2020 2:46 PM EDT 11/19/2020 2:46 PM EDT OVARIAN PART / Unknown 11/19/2020 2:46 PM EDT 11/19/2020 2:46 PM EDT Uterine Corpus 11/19/2020 2: 46 PM EDT 11/19/2020 2:46 PM EDT BIOPSY SPECIMEN / Unknown 11/19/2020 2:46 PM EDT 11/19/2020 2:46 PM EDT BIOPSY SPECIMEN / Unknown 11/19/2020 2:46 PM EDT 11/19/2020 2:46 PM EDT BIOPSY SPECIMEN / Unknown 11/19/2020 2:46 PM EDT 11/19/2020 2:46 PM EDT URINARY BLADDER STRUCTURE / Unknown 11/19/2020 2:46 PM EDT 11/19/2020 2:46 PM EDT LYMPH NODE SPECIMEN / Unknown 11/19/2020 2:46 PM EDT 11/19/2020 2:46 PM EDT LYMPH NODE SPECIMEN / Unknown 11/19/2020 2:46 PM EDT 11/19/2020 2:46 PM EDT LYMPH NODE SPECIMEN / Unknown 11/19/2020 2:46 PM EDT 11/19/2020 2:46 PM EDT OMENTUM STRUCTURE / Unknown 11/19/2020 2:46 PM EDT 11/19/2020 2:46 PM EDT OMENTUM STRUCTURE / Unknown 11/19/2020 2:46 PM EDT 11/19/2020 2:46 PM EDT BIOPSY SPECIMEN / Unknown 11/19/2020 2:46 PM EDT 11/19/2020 2:46 PM EDT BIOPSY SPECIMEN / Unknown 11/19/2020 2:46 PM EDT 11/19/2020 2:46 PM EDT OMENTUM STRUCTURE / Unknown 11/19/2020 2:46 PM EDT 11/19/2020 2:46 PM EDT Aletha Francois MD PATHOLOGY/CYTOLOGY O MIRZA Performing Organization Address [facility] [place] [address] * Specimen to Pathology (11/19/2020 2:46 PM EDT) AP Specimen 11/19/2020 2:46 PM EDT 11/19/2020 2:46 PM EDT Narrative [facility] - 11/19/2020 2:46 PM EDT Specimen requisition ordered. ??Separate Pathology report to follow Aletha Francois MD PATHOLOGY/CYTOLOGY O RDERABLES Performing Organization Address [facility]/[place] [address] * Non-Testing Director Final Report (11/19/2020 2:26 PM EDT) Diagnosis Discussion [id number] ? Location: 1WST; 0116; A The signing pathologist has (i) examined the relevant preparation(s) for the specimen(s) and (ii) rendered or confirmed the diagnosis(es). . ? Non-Testing Director Final DIAGNOSIS Negative for Malignancy Electronically signed by: ?Jose Roberto ESPINOSA, Gentry Camarena Verified: ??11/20/2020 14:06 ??Cytopathologis t Performed at: ??-[facility] [place] [place] Dept. of Pathology, [place], [place] DISCUSSION Pelvic wash: Mesothelial cells and leukocytes present. (Cell block was examined.) CLINICAL INFORMATION Specimen Source : Pelvic wash Pertinent Clinical Data and Significant Therapy: Pelvic mass Clinical Impression : Pelvic mass Pertinent Radiologic Findings ??: (not provided) Gross Description: Received ??fresh, approximately 100 mL total volume of ?? cloudy, red fluid, with clots. Total Preparation: Liquid-Based Prep 1; Cell Block 1. 11/20/2020 2:06 PM EDT [facility] Pelvic Washing 11/19/2020 2: 26 PM EDT 11/19/2020 2:26 PM EDT Aletha Francois MD PATHOLOGY/CYTOLOGY O MIRZA Performing Organization Address [facility] Co de Phone Number [facility] [place] [address] * Cytopathology Non-Gynecological (11/19/2020 2:26 PM EDT) AP Specimen 11/19/2020 2:26 PM EDT 11/19/2020 2:26 PM EDT Narrative [facility] - 11/19/2020 2:26 PM EDT Specimen requisition ordered. ??Separate Pathology report to follow Aletha Francois MD PATHOLOGY/CYTOLOGY O RDERABLES Performing Organization Address [facility] Co de Phone Number [facility] [place] [address] * Urine culture Indwelling Catheter Urine (11/19/2020 2:10 PM EDT) Urine Culture No growth (Less than 1,000 cfu/ml). [facility] Indwelling Catheter Urine 11/19/2020 2:10 PM EDT 11/19/2020 2:50 PM EDT Narrative Resulting Agency Comment Spec In Lab Aletha Francois MD MICROBIOLOGY - GENER AL ORDERABLES Performing Organization Address [facility] Co de Phone Number [facility] [place] [address] * POCT Glucose (11/19/2020 11:15 AM EDT) Glucose, POC 92 65 - 199 mg/dL [facility] Comment: Supplemental ranges: <140 mg/dL before meals <180 mg/dL all other times of the day Blood 11/19/2020 11:1 5 AM EDT 11/19/2020 11:15 AM EDT Aletha Francois MD POINT OF CARE TEST O RDERABLES Performing Organization Address [facility] Co de Phone Number [facility] [place] [address] documented in this encounter Visit Diagnoses Diagnosis Pelvic mass Abdominal or pelvic swelling, mass or lump, unspecified site documented in this encounter Admitting Diagnoses Diagnosis Pelvic mass Abdominal or pelvic swelling, mass or lump, unspecified site documented in this encounter Administered Medications Inactive Administered Medications - up to 3 most recent administrations Medication Order MAR Action Action Date Dose Rate Site acetaminophen (Tylenol) tablet 650 mg 650 mg, Oral, EVERY 6 HOURS SCHEDULED, First dose on Ange 11/19/20 at 1815, Until Discontinued, Maximum dose of acetaminophen is 4000 mg from all sources in 24 hours. When ordered for pain, acetaminophen should be given even when other ordered pain medications are indicated. , Routine Given 11/21/2020 12:23 PM EDT 650 mg Given 11/21/2020 5:35 AM EDT 650 mg Given 11/20/2020 6:56 PM EDT 650 mg enoxaparin (Lovenox) (40 mg/0.4 mL) subcutaneous injection 40 mg 40 mg, Subcutaneous, NIGHTLY, First dose on Mon11/20/20 at 2100, Until Discontinued, Routine Given 11/20/2020 9:52 PM EDT 40 mg gabapentin (Neurontin) capsule 600 mg 600 mg, Oral, 4 TIMES DAILY, First dose on Mon11/20/20 at 0900, Until Discontinued, Routine Given 11/21/2020 12:23 PM EDT 600 mg Given 11/21/2020 9:20 AM EDT 600 mg Given 11/20/2020 9:50 PM EDT 600 mg heparin (porcine) (5,000 units/1 mL) subcutaneous injection 5,000 Units 5,000 Units, Subcutaneous, ONCE, 1 dose, On Ange 11/19/20 at 1145, Day of Surgery (Day of Procedure), Routine Given 11/19/2020 12:15 PM EDT 5,000 Units HYDROmorphone (Dilaudid) (1 mg/mL) in sodium chloride 0.9% 50 mL SOFTWARE SECURITY ARCHITECT infusion Intravenous, SOFTWARE SECURITY ARCHITECT ONLY, Starting on Ange 11/19/20 at 1815, Until Mon11/20/20 at 0308, Recovery (Recovery-Hospital Unit) New Syringe/Cartridge 11/19/2020 6:18 PM EDT 50 mg HYDROmorphone (Dilaudid) (1 mg/mL) in sodium chloride 0.9% 50 mL SOFTWARE SECURITY ARCHITECT infusion Intravenous, SOFTWARE SECURITY ARCHITECT ONLY, Starting on Mon11/20/20 at 0400, Until Mon11/20/20 at 1048, Recovery (Recovery-Hospital Unit) Rate/Dose Change 11/20/2020 4:00 AM EDT HYDROmorphone (Dilaudid) (1 mg/mL) injection syringe 0.4 mg 0.4 mg, Intravenous, ONCE PRN, 1 dose, Starting on Mon11/20/20 at 1049, Until 11/21/20 at 1615, Pain, extreme breakthrough, Routine HYDROmorphone (Dilaudid) (2 mg/mL) injection solution 0.2 mg 0.2 mg, Intravenous, EVERY 1 HOUR PRN, 2 doses, Starting on Mon11/20/20 at 0013, Until Mon11/20/20 at 0210, Pain, breakthrough for severe pain, PRN for Severe Pain (7-10) or if unable to take P.O. medication, Routine Given 11/20/2020 2:10 AM EDT 0.2 mg Given 11/20/2020 12:16 AM EDT 0.2 mg HYDROmorphone (Dilaudid) (2 mg/mL) multi-dose injection solution 0.4 mg 0.4 mg, Intravenous, EVERY 10 MIN PRN, Starting on Ange 11/19/20 at 1745, Until Ange 11/19/20 at 2002, Pain, For Moderate to Severe Pain (6-10 out of 10), Hold for respiratory rate less than 10 per minute. Maximum dose 3 mg over one hour including administrations in the OR. If multiple pain medications are ordered, start with HYDROmorphone or morphine and use fentaNYL for breakthrough pain, PACU Recovery, Routine Given 11/19/2020 7:16 PM EDT 0.4 mg Given 11/19/2020 6:52 PM EDT 0.4 mg Given 11/19/2020 6:25 PM EDT 0.4 mg ketorolac (Toradol) (15 mg/mL) injection 15 mg 15 mg, Intravenous, EVERY 6 HOURS, 7 doses, First dose on Ange 11/19/20 at 2200, Last dose on 11/21/20 at 1000, Routine Given 11/21/2020 9:21 AM EDT 15 mg Given 11/21/2020 4:14 AM EDT 15 mg Given 11/20/2020 9:50 PM EDT 15 mg lactated ringers infusion 1,000 mL, at 100 mL/hr, Intravenous, CONTINUOUS, Starting on Ange 11/19/20 at 1815, Until Mon11/20/20 at 0957 New Bag 11/20/2020 3:23 AM EDT 1,000 mLs 100 m L/hr Rate/Dose Verify 11/20/2020 12:00 AM EDT 100 mL /hr Rate/Dose Verify 11/19/2020 10:35 PM EDT 100 mL /hr ondansetron (pf) (Zofran) (2 mg/mL) injection 4 mg 4 mg, Intravenous, EVERY 8 HOURS PRN, Starting on Mon11/20/20 at 0249, Until 11/21/20 at 1615, Nausea Given 11/21/2020 4:23 AM EDT 4 mg oxyCODONE (Roxicodone) tablet 5-10 mg 5-10 mg, Oral, EVERY 3 HOURS PRN, Starting on Mon11/20/20 at 0656, Until 11/21/20 at 1615, Pain, 5mg for pain 5 or less, 10mg for 6 or greater, Routine Given 11/21/2020 9:20 AM EDT 10 mg Given 11/21/2020 4:30 AM EDT 10 mg Given 11/20/2020 8:18 PM EDT 10 mg phenazopyridine (Pyridium) tablet 200 mg 200 mg (rounded from 190 mg), Oral, ONCE, 1 dose, On Ange 11/19/20 at 1145, Day of Surgery (Day of Procedure), Routine Given 11/19/2020 11:40 AM EDT 200 mg prochlorperazine (Compazine) tablet 10 mg 10 mg, Oral, EVERY 6 HOURS PRN, Starting on 11/21/20 at 0940, Until 11/21/20 at 1615, Nausea, Maximum dose: 50 mg / 24 hrs, Routine senna-docusate (Pericolace) 8.6-50 mg per tablet 2 tablet 2 tablet, Oral, 2 TIMES DAILY, First dose on Mon11/20/20 at 0900, Until Discontinued, Routine Given 11/21/2020 9:20 AM EDT 2 tablets Given 11/20/2020 9:51 PM EDT 2 tablets Given 11/20/2020 9:50 AM EDT 2 tablets sodium chloride 0.9 % (flush) (BD PosiFlush Normal Saline 0.9) flush 5 mL 5 mL, Intravenous, 2 TIMES DAILY, First dose on Mon11/20/20 at 0900, Until Discontinued, Routine Given 11/21/2020 9:20 AM EDT 5 mLs Given 11/20/2020 9:52 PM EDT 10 mLs Given 11/20/2020 9:53 AM EDT 5 mLs documented in this encounter Active and Recently Administered Medications Times are shown in EDT. Scheduled Medication Order 11/19/2020 11/20/2020 11/21/2020 acetaminophen (Tylenol) tablet 650 mg 650 mg, Oral, EVERY 6 HOURS SCHEDULED, First dose on Ange 11/19/20 at 1815, Until Discontinued, Maximum dose of acetaminophen is 4000 mg from all sources in 24 hours. When ordered for pain, acetaminophen should be given even when other ordered pain medications are indicated. , Routine 1815 (Not Given - Provider: Dalia Jimenez RN - Reason: Patient Unable) 0011 (Given - Provider: Stacey Huggins RN)0622 (Given - Provider: Sue Chase RN)1334 (Given - Provider: Liat Chin, YVES)1856 (Given - Provider: Liat Chin, YVES) 0000 (Not Given - Provider: Sue Chase RN - Reason: Patient/family refused)0535 (Given - Provider: Sue Chase RN)1223 (Given - Provider: Liat Chin RN) ceFAZolin (Ancef) 2 g in dextrose 5% 100 mL (2 x 1 g/50 mL premix bags) infusion (COMPLETED)(Linked Group 1) 2 g, Intravenous, ONCE, 1 dose, On Ange 11/19/20 at 1145, Administer over 30 Minutes, Software Licensing Analyst to OR Infuse over 30 minutes. Total dose of ceFAZolin 2 grams, administered [...] 1g (resulting in total dose of 2g)., Day of Surgery (Day of Procedure), Indication for (Active or Suspected): Prophylaxis 1343 (Given - Provider: Rachelle Shields CRNA) enoxaparin (Lovenox) (40 mg/0.4 mL) subcutaneous injection 40 mg 40 mg, Subcutaneous, NIGHTLY, First dose on Mon11/20/20 at 2100, Until Discontinued, Routine 2152 (Given - Provider: Sue Chase RN) gabapentin (Neurontin) capsule 600 mg 600 mg, Oral, 4 TIMES DAILY, First dose on Mon11/20/20 at 0900, Until Discontinued, Routine 0950 (Given - Provider: Liat Chin RN)1334 (Given - Provider: Liat Chin RN)1634 (Given - Provider: Liat Chin RN)2150 (Given - Provider: Sue Chase, YVES) 0920 (Given - Provider: Ole Alberto, RN)1223 (Given - Provider: Liat Chin RN) heparin (porcine) (5,000 units/1 mL) subcutaneous injection 5,000 Units (COMPLETED) 5,000 Units, Subcutaneous, ONCE, 1 dose, On Ange 11/19/20 at 1145, Day of Surgery (Day of Procedure), Routine 1215 (Given - Provider: Elsa Bland RN) ibuprofen (Advil) tablet 600 mg(Linked Group 2) 600 mg, Oral, EVERY 6 HOURS, First dose on 11/21/20 at 1600, Until Discontinued, - Begin after ketorolac discontinued. , Routine ketorolac (Toradol) (15 mg/mL) injection 15 mg (COMPLETED)(Linked Group 2) 15 mg, Intravenous, EVERY 6 HOURS, 7 doses, First dose on Ange 11/19/20 at 2200, Last dose on 11/21/20 at 1000, Routine 2226 (Given - Provider: Stacey Huggins RN) 0318 (Given - Provider: Sue Chase, YVES)0952 (Given - Provider: Liat Chin RN)1634 (Given - Provider: Liat Chin RN)2150 (Given - Provider: Sue Chase, YVES) 0414 (Given - Provider: Sue Chase, YVES)0921 (Given - Provider: Ole Alberto, YVES) metroNIDAZOLE (Flagyl) 500 mg in sodium chloride 0.9% 100 mL infusion (COMPLETED)(Linked Group 1) 500 mg, Intravenous, ONCE, 1 dose, On Ange 11/19/20 at 1145, Administer over 30 Minutes, Software Licensing Analyst to OR Infuse over 30 minutes., Day of Surgery (Day of Procedure), Indication for (Active or Suspected): Prophylaxis 1350 (Given - Provider: Rachelle Shields CRNA) phenazopyridine (Pyridium) tablet 200 mg (COMPLETED) 200 mg (rounded from 190 mg), Oral, ONCE, 1 dose, On Ange 11/19/20 at 1145, Day of Surgery (Day of Procedure), Routine 1140 (Given - Provider: Elsa Bland RN) senna-docusate (Pericolace) 8.6-50 mg per tablet 2 tablet 2 tablet, Oral, 2 TIMES DAILY, First dose on Mon11/20/20 at 0900, Until Discontinued, Routine 0950 (Given - Provider: Liat Chin RN)215 (Given - Provider: Sue Chase RN) 0920 (Given - Provider: Ole Alberto, YVES) sodium chloride 0.9 % (flush) (BD PosiFlush Normal Saline 0.9) flush 5 mL 5 mL, Intravenous, 2 TIMES DAILY, First dose on Mon11/20/20 at 0900, Until Discontinued, Routine 0953 (Given - Provider: Liat Chin RN)215 (Given - Provider: Sue Chase RN) 09 (Given - Provider: Ole Alberto RN) Continuous Medication Order 11/19/2020 11/20/2020 11/21/2020 HYDROmorphone (Dilaudid) (1 mg/mL) in sodium chloride 0.9% 50 mL SOFTWARE SECURITY ARCHITECT infusion (CANCELED) Intravenous, SOFTWARE SECURITY ARCHITECT ONLY, Starting on Ange 11/19/20 at 1815, Until Mon11/20/20 at 0308, Recovery (Recovery-Hospital Unit) 1818 (New Syringe/Cartridge - Provider: Dalia Jimenez RN) HYDROmorphone (Dilaudid) (1 mg/mL) in sodium chloride 0.9% 50 mL SOFTWARE SECURITY ARCHITECT infusion (CANCELED) Intravenous, SOFTWARE SECURITY ARCHITECT ONLY, Starting on Mon11/20/20 at 0400, Until Mon11/20/20 at 1048, Recovery (Recovery-Hospital Unit) 0400 (Rate/Dose Change - Provider: Sue Chase RN - Comment: verified by Donna Navas RN)1114 (Stopped - Provider: Sailaja Dia RN) lactated ringers infusion (CANCELED) 1,000 mL, at 100 mL/hr, Intravenous, CONTINUOUS, Starting on Ange 11/19/20 at 1815, Until Mon11/20/20 at 0957 1812 (New Bag - Provider: Dalia Jimenez RN)2000 (Rate/Dose Verify - Provider: Stacey Huggins RN)2235 (Rate/Dose Verify - Provider: Stacey Huggins RN) 0000 (Rate/Dose Verify - Provider: Stacey Huggins RN)0323 (New Bag - Provider: Sue Chase RN) PRN Medication Order 11/19/2020 11/20/2020 11/21/2020 HYDROmorphone (Dilaudid) (1 mg/mL) injection syringe 0.4 mg 0.4 mg, Intravenous, ONCE PRN, 1 dose, Starting on Mon11/20/20 at 1049, Until Mon11/21/20 at 1615, Pain, extreme breakthrough, Routine HYDROmorphone (Dilaudid) (2 mg/mL) injection solution 0.2 mg (COMPLETED) 0.2 mg, Intravenous, EVERY 1 HOUR PRN, 2 doses, Starting on Mon11/20/20 at 0013, Until Mon11/20/20 at 0210, Pain, breakthrough for severe pain, PRN for Severe Pain (7-10) or if unable to take P.O. medication, Routine 0016 (Given - Provider: Stacey Huggins RN)0210 (Given - Provider: Sue Chase RN) HYDROmorphone (Dilaudid) (2 mg/mL) multi-dose injection solution 0.4 mg (CANCELED)(Linked Group 3) 0.4 mg, Intravenous, EVERY 10 MIN PRN, Starting on Ange 11/19/20 at 1745, Until Ange 11/19/20 at 2002, Pain, For Moderate to Severe Pain (6-10 out of 10), Hold for respiratory rate less than 10 per minute. Maximum dose 3 mg over one hour including administrations in the OR. If multiple pain medications are ordered, start with HYDROmorphone or morphine and use fentaNYL for breakthrough pain, PACU Recovery, Routine 1754 (Given - Provider: Dalia Jimenez RN)181 (Given - Provider: Dalia Jimenez RN)182 (Given - Provider: Dalia Jimenez RN)185 (Given - Provider: Dalia Jimenez RN)1916 (Given - Provider: Dalia Jimenez RN) lidocaine (Xylocaine) 1% (10 mg/mL) injection 3 mg 3 mg (0.3 mL), Subcutaneous, ONCE PRN, 1 dose, Starting on Ange 11/19/20 at 1757, Until 11/21/20 at 1615, for discomfort with PIV insertion, Routine naloxone (Narcan) (0.4 mg/mL) injection 0.2 mg 0.2 mg, Intravenous, EVERY 1 MIN PRN, Starting on 11/20/20 at 0249, Until 11/21/20 at 1615, Opioid Reversal, May repeat every 60 seconds to increase respiratory rate. DO NOT exceed 2 mg total dose. Per SOFTWARE SECURITY ARCHITECT order., Recovery (Recovery-Hospital Unit), Routine ondansetron (pf) (Zofran) (2 mg/mL) injection 4 mg 4 mg, Intravenous, EVERY 8 HOURS PRN, Starting on 11/20/20 at 0249, Until 11/21/20 at 1615, Nausea 0423 (Given - Provider: Sue Chase RN) oxyCODONE (Roxicodone) tablet 5-10 mg 5-10 mg, Oral, EVERY 3 HOURS PRN, Starting on 11/20/20 at 0656, Until 11/21/20 at 1615, Pain, 5mg for pain 5 or less, 10mg for 6 or greater, Routine 0950 (Given - Provider: Liat Chin RN)1402 (Given - Provider: Liat Chin RN)2018 (Given - Provider: Sue Chase RN) 0430 (Given - Provider: Sue Chase RN)0920 (Given - Provider: Ole Alberto RN) polyethylene glycoL (Miralax) packet 17 g 17 g, Oral, DAILY PRN, Starting on 11/20/20 at 0249, Until 11/21/20 at 1615, Constipation, Administer if no bowel movement within 48 hours to achieve: (1) One bowel movement at least every 48 hours, AND (2) without straining. If multiple PRN bowel medications ordered, start with polyethylene glycol, then lactulose, then oral bisacodyl, then bisacodyl suppository, then magnesium citrate, then tap water enema. Multiple medications may be given concomitantly for constipation., Routine prochlorperazine (Compazine) tablet 10 mg 10 mg, Oral, EVERY 6 HOURS PRN, Starting on 11/21/20 at 0940, Until 11/21/20 at 1615, Nausea, Maximum dose: 50 mg / 24 hrs, Routine sodium chloride 0.9 % (flush) (BD PosiFlush Normal Saline 0.9) flush 5-20 mL 5-20 mL, Intravenous, EVERY 1 MIN PRN, Starting on Mon11/20/20 at 0249, Until 11/21/20 at 1615, flush, Flush pertains to all indwelling lines. Flush per protocol found in the job aid using the link provided on this medication record., Routine Linked Groups Order Group 1: ceFAZolin (Ancef) 2 g in dextrose 5% 100 mL (2 x 1 g/50 mL premix bags) infusion (COMPLETED)Jump to med 2 g, Intravenous, ONCE, 1 dose, On Ange 11/19/20 at 1145, Administer over 30 Minutes, Software Licensing Analyst to OR Infuse over 30 minutes. Total dose of ceFAZolin 2 grams, administered [...] 1g (resulting in total dose of 2g)., Day of Surgery (Day of Procedure), Indication for (Active or Suspected): Prophylaxis And metroNIDAZOLE (Flagyl) 500 mg in sodium chloride 0.9% 100 mL infusion (COMPLETED)Jump to med 500 mg, Intravenous, ONCE, 1 dose, On Ange 11/19/20 at 1145, Administer over 30 Minutes, Software Licensing Analyst to OR Infuse over 30 minutes., Day of Surgery (Day of Procedure), Indication for (Active or Suspected): Prophylaxis Group 2: ketorolac (Toradol) (15 mg/mL) injection 15 mg (COMPLETED)Jump to med 15 mg, Intravenous, EVERY 6 HOURS, 7 doses, First dose on Ange 11/19/20 at 2200, Last dose on 11/21/20 at 1000, Routine Followed by ibuprofen (Advil) tablet 600 mgJump to med 600 mg, Oral, EVERY 6 HOURS, First dose on 11/21/20 at 1600, Until Discontinued, - Begin after ketorolac discontinued. , Routine Group 3: HYDROmorphone (Dilaudid) (2 mg/mL) multi-dose injection solution 0.2 mg (CANCELED) 0.2 mg, Intravenous, EVERY 10 MIN PRN, Starting on Ange 11/19/20 at 1745, Until Ange 11/19/20 at 2001, Pain, For Mild to Moderate Pain (1-5 out of 10), Hold for respiratory rate less than 10 per minute. Maximum dose 3 mg over one hour including administrations in the OR. If multiple pain medications are ordered, start with HYDROmorphone or morphine and use fentaNYL for breakthrough pain, PACU Recovery, Routine Or HYDROmorphone (Dilaudid) (2 mg/mL) multi-dose injection solution 0.4 mg (CANCELED)Jump to med 0.4 mg, Intravenous, EVERY 10 MIN PRN, Starting on Ange 11/19/20 at 1745, Until Ange 11/19/20 at 2001, Pain, For Moderate to Severe Pain (6-10 out of 10), Hold for respiratory rate less than 10 per minute. Maximum dose 3 mg over one hour including administrations in the OR. If multiple pain medications are ordered, start with HYDROmorphone or morphine and use fentaNYL for breakthrough pain, PACU Recovery, Routine documented in this encounter Care Teams Geriatric Aide Relationship Specialty Start Date End Date Sue Espinosa PA [address] [place] [id number] PCP - General Family Medicine 11/09/20 02/14/22 documented as of this encounter
--- OUTSIDE RECORDS SUMMARY | 2024-01-02 18:41 | XMS_ITS | Encounter Summary ---
Author Organization [facility] [place] [address] Care Team Providers Care Blood Bank Order Control Clerk Name Role Phone Sue Espinosa Primary Care Provider [phone] Encounter Details Date Type Department Care Team (Late st Contact Info) Description 12/08/2020 Orders Only [place] [address] Evelyn Hernandez APRN [facility] OBSTETRICS & [place] [address] Ovary cancer, right Social History Tobacco Use [...] Progress Notes * Evelyn Hernandez APRN - 12/08/2020 3:52 PM EDT Division [place] [address] This internal communications writer called the patient and clarified her appointments for which she had questions. Plan is for chemo teach tomorrow, 12/09/20 via phone. She will [place] [facility] [place] of her [place] placement, 12/15/20. C1D1 with visit with Dr. Francois scheduled for 12/17/20. Franco and pre-chemo labs in [facility]. Patient was instructed to call with any questions or clarifications after her chemo teach tomorrow. Evelyn Hernandez APRN documented in this encounter Plan of Treatment Not on file documented as of this encounter Results * (ABNORMAL) Comprehensive metabolic panel (non-fasting) (12/15/2020 8:35 AM EDT) Glucose 122 65 - 199 mg/dL [facility] Comment:Diabetes: >=200 mg/d L plus symptoms Blood Urea Nitrogen 7(L) 8 - 18 mg/dL [facility] Creatinine 0.73 0.70 - 1.20 mg/dL [facility] Sodium 140 135 - 145 mmol/L [facility] Potassium 3.6 3.5 - 5.0 mmol/L [facility] Comment: Please note: ??Patients with WBC >100,000 may have falsely elevated Potassium levels. ??For accurate Potassium quantification in these patients send serum separator tube (gold top) for subsequent determinations. ??Contact the Clinical Chemistry Laboratory if there are any questions. Chloride 104 98 - 107 mmol/L [facility] Carbon Dioxide 28 22 - 31 mmol/L [facility] Anion Gap 8 5 - 15 mmol/L [facility] Calcium 8.8 8.5 - 10.5 mg/dL [facility] Protein, Total 6.1 6.1 - 8.0 g/dL [facility] Albumin 3.9 3.2 - 5.2 g/dL [facility] Aspartate Aminotransferase 10 0 - 30 unit/L [facility] Alanine Aminotransferase 6 0 - 30 unit/L [facility] Alkaline Phosphatase 72 35 - 105 unit/L [facility] Bilirubin, Total 0.3 0.2 - 1.3 mg/dL [facility] Est Glomerular Filtration Rate 86 >=60 mL/min/1. 73 m?? [facility] [...] In Lab Evelyn Hernandez APRN CHEMISTRY ORDERABLES [facility] [place] [address] documented in this encounter Visit Diagnoses Diagnosis Ovary cancer, right documented in this encounter Care Teams Blood Bank Order Control Clerk Relationship Specialty Start Date End Date Sue Espinosa PA [address] [place] [id number] PCP - General Family Medicine 11/09/20 02/14/22 documented as of this encounter
--- OUTSIDE RECORDS SUMMARY | 2024-01-02 18:41 | XMS_ITS | Encounter Summary ---
Author Organization [facility] Address [facility] [place] [address] Care Team Providers Care Mechanical Engineering Manager Name Role Phone Sue Espinosa Primary Care Provider [phone] Reason for Visit * Reason Comments Chemotherapy Encounter Details Date Type Department Care Team (Late st Contact Info) Description 12/17/2020 8:00 AM EDT Office Visit [place] [address] Aletha Francois MD [facility] DR OBSTETRICS [place] [address] Left ovarian epithelial cancer; Post-operative state; S/P ECTOR-BSO (total abdominal hysterectomy and bilateral salpingo-oophorectomy ); Educational circumstance Social History Tobacco Use Types Packs/Day Years [...] Sign Reading Time Taken Comments Blood Pressure 150/78 12/17/2020 8:22 AM EDT Pulse 120 12/17/2020 8:22 AM EDT Temperature 37.2 ??C (98.9 ??F) 12/17/2020 8:22 AM ED T Respiratory Rate 16 12/17/2020 8:22 AM EDT Oxygen Saturation 97% 12/17/2020 8:22 AM EDT Inhaled Oxygen Concentration - - Weight 68.7 kg (151 lb 7.3 oz) 12/17/2020 8:22 A M EDT Height 165.1 cm (5' 5) 12/17/2020 8:22 AM EDT Body Mass Index 25.2 12/17/2020 8:22 AM EDT documented in this encounter Progress Notes * Ariana Lamb LNA - 12/17/2020 8:00 AM EDT Brown shoes 0.8 KG * Aletha Francois MD - 12/17/2020 8:00 AM EDT Images from the original note were not included. GYNECOLOGIC ONCOLOGY OUT PATIENT FOLLOW UP Date: 12/17/2020 Name: Dalia Tavera : 1955 CSN: [id number] Patient Care Team: Patient Care Team: Sue Espinosa PA as PCP - General (Family Medicine) CHIEF COMPLAINT Left ovarian cancer Post op HISTORY OF PRESENT ILLNESS Dalia Tavera is a 65 y.o. old para 0 woman, seen at the request of Faisal OLIVO in consultation for recommendations evaluation and assessment regarding her primary diagnosis of pelvic mass. Patient endorses acute onset abdominal pain and presented to ED [facility] 11/06/20 associated with some nausea. Patient reports prior episode 10 years earlier and diagnosis with UTI and treated with antibiotic. Patient had imaging and puga catheter placed and d/c home. 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 Has regular provider. Here with today. Last visit: surgery 11/19/20 Interval history Pain medications used oxy and needed refill oxy but now doing much better, no more pain meds Bowel movement every day sometimes twice day [...] of my consultation today with the patient. [facility] 11/19/20 Left ovary (partial oophorectomy): [...] benign lymph node. Negative cytology TVS 11/06/[address] [facility] N [address] ABD/PELVIS [facility] ED 11/06/20 Labs Creatinine 1.0 Normal LFT Total protein 7.9. 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 CURRENT MEDICATIONS Current Outpatient Medications Medication Sig Dispense Refill No current facility-administered medications for this visit. PHYSICAL EXAM BP 150/78 (Patient Position: Sitting) Pulse (!) 120 Temp 37.2 ??C (98.9 ??F) (Temporal) Resp 16 Ht 165.1 cm (5' 5) Wt 68.7 kg (151 lb 7.3 oz) SpO2 97% BMI 25.20 kg/m?? Exam: GENERAL: Well-appearing, female in no [...] the patient responds to questions appropriately in Serbian. PELVIC EXAM: deferred Genetic Testing n/a Advance [...] cell carcinoma S/p hyst BSO and staging Post op evaluation We discussed the meaning of Dalia Tavera surgery and findings and the impact that surgery hadto remove her disease and the encouraging fact that she had an optimal resection of her disease. Patient had intra-operative spill with clear cell carcinoma, optimal cytoreduction. We reviewed the path report in detail. We discussed my recommendations for adjuvant treatment with taxol carboplatin intravenous. I have advised chemotherapy for 4. We reviewed the risks, benefits and rationale for these reccommendations.We reviewed in detail some of the specific [...] and how she is tolerating her treatments. We have discussed the timing of chemotherapy, the anticipated schedule of treatments. Patient to start chemotherapy taxol carboplatin intravenous today, labs cleared. specifically we discussed her normal CA 125, and limitations of CA 125 with early stage disease. We may consider repeat imaging post 4 [...] made I personally spent a total of 30 minute visit in counseling and coordinating care for Dalia Tavera. We discussed the plan and rationale for ongoing surveillance. Signed, Aletha Francois MD 12/17/2020 documented in this encounter Plan of Treatment Not on file documented as of this encounter Visit Diagnoses Diagnosis Left ovarian epithelial cancer Post-operative state Other postprocedural status S/P ECTOR-BSO (total abdominal hysterectomy and bilateral salpingo-oophorectomy) Acquired absence of both cervix and uterus Educational circumstance documented in this encounter Care Teams Mechanical Engineering Manager Relationship Specialty Start Date End Date Sue Espinosa PA [address] [place] [phone] PCP - General Family Medicine 11/09/20 02/14/22 documented as of this encounter
--- OUTSIDE RECORDS SUMMARY | 2024-01-02 18:41 | XMS_ITS | Encounter Summary ---
Author Organization [facility] [place] [address] Care Team Providers Care Internal Wholesaler Name Role Phone Sue Espinosa Primary Care Provider [phone] Encounter Details Date Type Department Care Team (Late st Contact Info) Description 01/07/2021 Orders Only [place] [address] Aletha Francois MD [facility] [address] [place] [address] Social History Tobacco Use Types Packs/Day Years [...] on filedocumented in this encounter Care Teams Internal Wholesaler Relationship Specialty Start Date End Date Sue Espinosa PA [address] [place] [id number] PCP - General Family Medicine 11/09/20 02/14/22 documented as of this encounter
--- OUTSIDE RECORDS SUMMARY | 2024-01-02 18:41 | XMS_ITS | Encounter Summary ---
Author Organization [facility] [place] [address] Care Team Providers Care Fire Boss Name Role Phone Sue Espinosa Primary Care Provider [phone] Encounter Details Date Type Department Care Team (Late st Contact Info) Description 01/07/2021 Orders Only [place] [address] Aletha Francois MD [facility] [address] OBSTET[place]ICS [place] [address] Social History Tobacco Use Types Packs/Day Years [...] on filedocumented in this encounter Care Teams Fire Boss Relationship Specialty Start Date End Date Sue Espinosa PA [address] [place] [phone] PCP - General Family Medicine 11/09/20 02/14/22 documented as of this encounter
--- OUTSIDE RECORDS SUMMARY | 2024-01-02 18:41 | XMS_ITS | Encounter Summary ---
Author Organization [facility]ly [facility] [place] [address] Care Team Providers Care Card Puncher Name Role Phone Sue Espinosa Primary Care Provider [phone] Encounter Details Date Type Department Care Team (Late st Contact Info) Description 01/07/2021 Orders Only [place] [address] Aletha Francois MD [facility] DR OBSTETRICS [place] [address] Social History Tobacco Use Types Packs/Day Years [...] on filedocumented in this encounter Care Teams Card Puncher Relationship Specialty Start Date End Date Sue Espinosa PA [address] [place] [id number] PCP - General Family Medicine 11/09/20 02/14/22 documented as of this encounter
--- OUTSIDE RECORDS SUMMARY | 2024-01-02 18:41 | XMS_ITS | Encounter Summary ---
Author Organization [facility] [place] [address] Care Team Providers Care Scarf Gluer Name Role Phone Sue Espinosa Primary Care Provider [phone] Encounter Details Date Type Department Care Team (Late st Contact Info) Description 12/28/2020 Notes Only [place] [address] Evelyn Hernandez APRN [facility] DR OBSTETRICS & GYNECOLOGY [place] [id number] Social History Tobacco Use Types Packs/Day Years [...] Progress Notes * Evelyn Hernandez APRN - 12/28/2020 3:55 PM EDT Division [place] [address] This filing writer received a message from one of the schedulers that [facility] was on the line with a critical value. YVES Williamson took the message. Critical labs as follows: WBC 1.22 ANC 0.01 Patient is on C1D15 today of paclitaxel/carboplatin. This filing writer called the patient and there was no answer. Detailed information reviewing neutropenic precautions was left on her voicemail. She also was instructed to ensure that if her temperature is ever 100.4 or greater she must call us 03/10. I instructed her to call the office and ask for the on-call attending physician should this occur. I did review her labs with the on-call attending, Dr. Phyllis Miranda, so she is aware. Dr. Ferguson did not feel her labs need to be rechecked any sooner than her next scheduled labs, which will be prechemotherapy labs. A copy of this communication will be sent to Dr. Jovanny Francois for her review upon her return. Evelyn Hernandez APRN documented in this encounter Plan of Treatment Not on file documented as of this encounter Visit Diagnoses Not on filedocumented in this encounter Care Teams Scarf Gluer Relationship Specialty Start Date End Date Sue Espinosa PA [address] [address] PCP - General Family Medicine 11/09/20 02/14/22 documented as of this encounter
--- OUTSIDE RECORDS SUMMARY | 2024-01-02 18:41 | XMS_ITS | Encounter Summary ---
[place] [address] Care Team Providers Care Intellectual Property Legal Assistant Name Role Phone Sue Espinosa Primary Care Provider [phone] Reason for Visit * Reason Onset Date Comments Prior Authorization 12/17/2020 LIDOCAINE-NE ILOCAINE 2.5-2.5 % cream - Approved - 09/18/20 - 03/17/21 Encounter Details Date Type Department Care Team (Late st Contact Info) Description 12/17/2020 Telephone [place] [address] Chrissie Ramírez RN Prior Authorization (LIDOCAINE-PRILOCAINE 2.5-2.5 % cream - Approved - 09/18/20 - 03/17/21) Social History Tobacco Use Types Packs/Day Years [...] Telephone Encounter - Chrissie Ramírez RN - 12/17/2020 11:00 AM EDT Prior Auth Request received by fax from JANETT Engle for: Lidocaine-Prilocaine 2.5-2.5 % Cream - Place on skin over port site 1 hour prior to port access forlabs or infusions. Disp 30 g Refills 5 Insurer: [place] Medicare Part D - [employer] Medicare Supplemental Group # 02 Submitted through Cover My Med's CORONEL: [id number] BAILEY Rx # [id number] PA Approved: 09/18/2020 - 03/17/2021 PA Approval notice faxed to Chuck Rocha documented in this encounter Plan of Treatment Not on file documented as of this encounter Visit Diagnoses Not on filedocumented in this encounter Care Teams Intellectual Property Legal Assistant Relationship Specialty Start Date End Date Sue Espinosa PA [address] [place] [phone] PCP - General Family Medicine 11/09/20 02/14/22 documented as of this encounter
--- OUTSIDE RECORDS SUMMARY | 2024-01-02 18:41 | XMS_ITS | Encounter Summary ---
Author Organization [facility] [place] [address] Care Team Providers Care Metallurgist Process Name Role Phone Deedee Cruz MD Primary Care Provider [phone] Encounter Details Date Type Department Care Team (Late st Contact Info) Description 12/28/2020 Notes Only [place] [address] Evelyn Hernandez APRN [facility] OBSTETRICS [place] [address] Social History Tobacco Use Types Packs/Day Years [...] on filedocumented in this encounter Care Teams Metallurgist Process Relationship Specialty Start Date End Date Deedee Cruz MD [address] [place] [address] PCP - General Oncology 02/15/22 documented as of this encounter
--- OUTSIDE RECORDS SUMMARY | 2024-01-02 18:41 | XMS_ITS | Encounter Summary ---
Author [facility] [place] [address] Care Team Providers Care Stem Crusher Name Role Phone Sue Espinosa Primary Care Provider [phone] Encounter Details Date Type Department Care Team (Late st Contact Info) Description 12/18/2020 Orders Only Gynecology Oncology at [facility] [place] [address] Evelyn Hernandez APRN [facility] OBSTETRICS & [place] [address] Ovary cancer, right Social History Tobacco Use [...] right documented in this encounter Care Teams Stem Crusher Relationship Specialty Start Date End Date Sue Espinosa PA [address] [place] [phone] PCP - General Family Medicine 11/09/20 02/14/22 documented as of this encounter
--- OUTSIDE RECORDS SUMMARY | 2024-01-02 18:41 | XMS_ITS | Encounter Summary ---
Author Organization Formerly [facility] [place] [address] Care Team Providers Care Bell Spinner Name Role Phone Sue Espinosa Primary Care Provider [phone] Encounter Details Date Type Department Care Team (Late st Contact Info) Description 12/28/2020 Telephone Gynecology Oncology at [facility] [place] [address] Teri Torre RN Social History Tobacco Use [...] Telephone Encounter - Teri Torre RN - 12/28/2020 3:25 PM EDT Received call from [facility] Alec Lozano relaying patient's critical lab values. WBC-1.22 and ANC-0.01.Discussed these values with Evelyn Hernandez APRN. She will call the patient. documented in this encounter Plan of Treatment Not on file documented as of this encounter Visit Diagnoses Not on filedocumented in this encounter Care Teams Bell Spinner Relationship Specialty Start Date End Date Sue Espinosa PA [address] [place] [id number] PCP - General Family Medicine 11/09/20 02/14/22 documented as of this encounter
--- OUTSIDE RECORDS SUMMARY | 2024-01-02 18:41 | XMS_ITS | Encounter Summary ---
Author Organization [facility] [place] [address] Care Team Providers Care Accountant Bookkeeper Name Role Phone Sue Espinosa Primary Care Provider [phone] Encounter Details Date Type Department Care Team (Late st Contact Info) Description 12/18/2020 Orders Only Gynecology Oncology at [facility] [place] [address] Evelyn Hernandez APRN [facility] [place] [address] Hypersensitivity reaction, initial encounter Social History Tobacco Use Types Packs/Day Years [...] as of this encounter Visit Diagnoses Diagnosis Hypersensitivity reaction, initial encounter documented in this encounter Care Teams Accountant Bookkeeper Relationship Specialty Start Date End Date Sue Espinosa PA [address] [place] [id number] PCP - General Family Medicine 11/09/20 02/14/22 documented as of this encounter
--- OUTSIDE RECORDS SUMMARY | 2024-01-02 18:41 | XMS_ITS | Encounter Summary ---
[place] [address] Care Team Providers Care Calender Let Off Helper Name Role Phone Sue Espinosa Primary Care Provider [phone] Encounter Details Date Type Department Care Team (Late st Contact Info) Description 01/07/2021 Orders Only Gyne[place] [address] Teri Torre, RN Social History Tobacco Use [...] on filedocumented in this encounter Care Teams Calender Let Off Helper Relationship Specialty Start Date End Date uSe Espinosa PA [address] [place] [id number] PCP - General Family Medicine 11/09/20 02/14/22 documented as of this encounter
--- OUTSIDE RECORDS SUMMARY | 2024-01-02 18:41 | XMS_ITS | Encounter Summary ---
Author Organization [facility] [place] [address] Care Team Providers Care Guest Specialist Name Role Phone Sue Espinosa Primary Care Provider [phone] Encounter Details Date Type Department Care Team (Latest Contact Info) Description 12/09/2020 1:00 PM EDT TH Visit (TeleHealth) Hematology [place] [address] Mina Ascencio, [facility] Ovary cancer, left; Ovary cancer, right Social History Tobacco Use [...] as of this encounter Progress Notes * Mina Ascencio [facility] - 12/09/2020 1:00 PM EDT Chemotherapy Teaching Visit PATIENT ID: Dalia Mcfarlane is a 65 y.o. female with ovarian cancer who presents today for chemotherapy teaching via telephone. The plan is for carboplatin and paclitaxel given every 3 weeks. The following information was reviewed with the patient and family. Chemotherapy Therapy Schedule: ??? Carboplatin (30 minute infusion) + paclitaxel (3 hour infusion) IV every 21 days Laboratory Tests: A complete metabolic panel (CMP) and complete blood count (CBC) with differentialwill need to be drawn within 5 days prior to each cycle. ??? Dalia Mcfarlane stated understanding with this schedule and will be getting labs drawn at [facility] on the day of her port placement (12/15/20) followed by martine and pre-chemo labs at [facility]. Attending BIOASSAYIST/ONC: Dr. Francois Provider Visits: Dalia Mcfarlane will see either her physician or nurse practitioner prior to every cycle Possible Side Effects include, but are not limited to: Carboplatin [...] the ears or hearing loss, electrolyte abnormalities. Paclitaxel (taxol): The most common potential side effects include: Decrease in blood counts (decrease in white blood cells, red blood cells and platelets, resulting in increased risk of infection, anemia and bleeding), numbness and tingling in the hands and feet, infusion reactions, nausea/vomiting, hair loss, diarrhea, muscle aches/joint pain, fatigue. The muscle aches tend to occur in the 2-3 days after treatment and last a few days. Less common side effects include swelling of the feet or ankles, liver dysfunction, nail changes. Medications: the following prescriptions should be picked up before starting treatment ??? Prochlorperazine (compazine): 1 tablet (10 mg) twice daily for 3 to 4 days followed by prochlorperazine (compazine): 1 tablet (10 mg) every 6 hours as needed for nausea. ??? Ondansetron (zofran): 1 tablet (8 mg) every 8 hours as needed for nausea. Do NOT take within 3 days of chemotherapy. ??? Lorazepam (ativan): 1 tablet (0.5 mg) every 6 hours as needed for nausea. Plan: Dalia was given written information regarding chemotherapy regimen, side effects and management strategies. In addition the [facility] DVD was viewed. She was given an opportunity to ask questions and verbalized understanding of the information and treatment plan. No barriers to learning were identified. She was counseled on how to call for any further questions or concerns. ??? Chemotherapy is scheduled to begin on 12/17/20 ??? Supportive Care: o Antiemetics were reviewed with and Dalia understands how and when to take the medications prescribed - Prescriptions for prochlorperazine, ondansetron, and lorazepam were sent/called to her preferred pharmacy. Each medication reviewed with patient. She will be mailed written instructions for their use, including but not limited to not to take ondansetron for 3 days following chemotherapy. o Discussed bowel regimen. Recommended to increase fiber, fluids and activity to help bowel function. Discussed possible need for stool softener, gentle laxative and fiber supplement if she is havingissues with constipation. Advised that she call the clinic if she has not had a bowel movement in > 48 hours. Handout to be mailed to patient regarding bowel function. o Discussed use of tylenol. Patient made aware of antipyretic effects and encouraged she monitor temperature prior to taking when at risk for infection. We also discussed ibuprofen. Patient made aware of risks of bleeding with NSAIDS and to monitor this throughout treatment. o Discussed potential for peripheral neuropathy with paclitaxel. Informed patient new chemotherapy teaching packet will include information on complementary and alternative medicine options. Explained there is limited robust evidence in support of these therapies, but they may help some patients. Advised her to further discuss these options with their provider if interested. o Discussed hair loss - Dalia is not interested in a wig at this point and has started knitting hats for her to wear in anticipation of her hair loss. ??? Chemotherapy exposure precautions reviewed: Yes ??? Smoking cessation: never smoker ??? Advance Directives: On file in [facility] - Dalia claims that this advanced directive is up to date. ??? Follow up: Return to clinic on 12/17/2020 52 of this 60 minute face to face encounter was spent in counseling, education and coordination of care. documented in this encounter Plan of Treatment Not on file documented as of this encounter Visit Diagnoses Diagnosis Ovary cancer, left Ovary cancer, right documented in this encounter Care Teams Guest Specialist Relationship Specialty Start Date End Date Sue Espinosa PA [address] [address] PCP - General Family Medicine 11/09/20 02/14/22 documented as of this encounter
--- OUTSIDE RECORDS SUMMARY | 2024-01-02 18:41 | XMS_ITS | Encounter Summary ---
[place] [address] Care Team Providers Care Beer Runner Name Role Phone Sue Espinosa Primary Care Provider [phone] Encounter Details Date Type Department Care Team (Late st Contact Info) Description 11/23/2020 [place] [address] Adan Tucker DO [facility] [place] [address] Social History Tobacco Use Types Packs/Day Years Used Date Smoking Tobacco: Never Smokeless Tobacco: Never Alcohol Use Standard Drinks/Week Comments Never 0 (1 standard drink = 0.6 oz pur e alcohol) Sex and Gender Information Value Date Recorded Sex Assigned at Not on file Gender Identity Not on file Sexual Orientation Not on file documented as of this encounter Progress Notes * Adan Tucker - 11/23/2020 3:40 PM EDT I attempted to contact the patient via telephone regarding resolution of nerve block. I was unable to reach the patient. I will follow-up again to ensure resolution of block. If there are any questions or concerns regarding the nerve block, do not hesitate to contact the regional anesthesia team Adan Tucker DO 11/23/20 3:41 PM documented in this encounter Plan of Treatment Not on file documented as of this encounter Visit Diagnoses Not on filedocumented in this encounter Care Teams Beer Runner Relationship Specialty Start Date End Date Sue Espinosa PA [address] [place] [address] PCP - General Family Medicine 11/09/20 02/14/22 documented as of this encounter
--- OUTSIDE RECORDS SUMMARY | 2024-01-02 18:42 | XMS_ITS | Encounter Summary ---
Author Organization Formerly [facility] Address [facility] [place] [address] Care Team Providers Care Unit Secy Name Role Phone Sue Espinosa Primary Care Provider [phone] Reason for Visit * Reason Comments Establish Care Predominantly cystic pelvic Mass of uncertain origin, hightly suspicious for malignancy * Consultation (Urgent) - Closed Specialty Diagnoses / Procedures Referred By Contac t Referred To Contact Gynecology Oncology Diagnoses Predominantly cystic pelvic Mass of uncertain origin, hightly suspicious for malignancy Vannessa Cano PA [address] [place] [address] [place] [address] [facility] [employer] [address] [place] [phone] Referral ID Status Reason Start Date Expiration Date Visits Re quested Visits Authorized [id number] Closed 11/09/2020 11/09/2021 1 1 Encounter Details Date Type Department Care Team (Late st Contact Info) Description 11/13/2020 3:00 PM EDT Office Visit [place] [address] Aletha Francois MD [facility] OBSTETRICS [place] [address] Intra-abdominal and pelvic swelling, mass and lump, unspecified site Social History Tobacco Use Types Packs/Day Years [...] Sign Reading Time Taken Comments Blood Pressure 169/93 11/13/2020 3:10 PM EDT Pulse 124 11/13/2020 3:10 PM EDT Temperature 37.3 ??C (99.2 ??F) 11/13/2020 3:10 PM ED T Respiratory Rate 18 11/13/2020 3:10 PM EDT Oxygen Saturation 98% 11/13/2020 3:10 PM EDT Inhaled Oxygen Concentration - - Weight 73.9 kg (163 lb) 11/13/2020 3:10 PM EDT Height 165.1 cm (5' 5) 11/13/2020 3:10 PM EDT Body Mass Index 27.12 11/13/2020 3:10 PM EDT documented in this encounter Progress Notes * Aletha Francois MD - 11/13/2020 3:00 PM EDT Images from the original note were not included. GYNECOLOGIC ONCOLOGY NEW PATIENT CONSULTATION Date: 11/13/2020 Name: Dalia Mcfarlane : 1955 CSN: [id number] Patient Care Team: Patient Care Team: Sue Espinosa PA as PCP - General (Family Medicine) ASSESSMENT/PLAN Assessment Pelvic mass Abdominal pain Urinary retention Abnormal CT Pre op evaluation - PAT testing with tumor markers and labs We have reviewed the differential diagnosis of the findings which includes a malignant process of the ovary versus a benign etiology. I recommend surgical intervention in order to estabish a diagnosis. We discussed at length options at this time and the risks, benefits and alternatives. We discussed that the rationale for surgery would be if we felt disease was amenable to complete cytoreduction.The goal of surgery would be 1) complete cytoreduction to no gross residual and 2) to definitively establish the diagnosis. If this is a malignant process, the patient will potentially require chemotherapy. We further discussed that we cannot know if it will be feasible to resect all the cancer until the time of surgery and that there is a possibility that she would have residual disease. We discussed removal of the uterus, tubes, ovaries and omentum, with possible resection of disease affectedareas including but not limited to the lymph nodes, bowel and bladder. We discussed that intraoperative findings will determine the extent of surgery and resection. We then discussed the anticipated postoperative course and length of stay and recovery. Discussed risks of surgery including but not limited to bleeding, infection, injury to internal organs, need for additional procedures if complications arise, risk of medical complications such as cardiac, pulmonary or thrombotic events, risk of general anesthesia, risk of future problems such as bowel obstructions. I will follow up with results of labs including tumor markers. We will follow up with date of surgery. Consent signed today/ Return to Clinic: for surgery FULL NOTE CHIEF COMPLAINT Pelvic mass Urinary retention HISTORY OF PRESENT ILLNESS Dalia Mcfarlane is a 65 y.o. old para 0 woman, seen at the request of Faisal OLIVO and Vannessa Cano in consultation for recommendations evaluation and assessment regarding her primary diagnosis of pelvic mass . Patient endorses acute onset abdominal pain and presented to ED [facility] 11/06/20 associated with some nausea. Patient reports prior episode 10 years earlier and diagnosis with UTI and treated with antibiotic. Patient had imaging and puga catheter placed and d/c home. Patient still has pain lower abdomen now described as a 5 of 10. Mild nausea no emesis, bowel movement normal. Patient has not had pelvic exam or industrial therapist care in many years, no issues. Has regular provider. Here with today. COVID vaccinated. Performance Status: 0 Oncology History [...] of my consultation today with the patient. TVS 11/06/[address] [facility] [address] ABD/PELVIS [facility] ED 11/06/20 Labs Creatinine 1.0 Normal LFT Total protein 7.9. 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 CURRENT MEDICATIONS No current outpatient medications on file. No current facility-administered medications for this visit. PHYSICAL EXAM BP (!) 169/93 (Patient Position: Sitting) Pulse (!) 124 Temp 37.3 ??C (99.2 ??F) (Temporal) Resp 18 Ht 165.1 cm (5' 5) Wt 73.9 kg (163 lb) SpO2 98% BMI 27.12 kg/m?? Exam: GENERAL: Well-appearing, female in no [...] the patient responds to questions appropriately in Gibraltarian. PELVIC EXAM: Vulva: Normal female external genitalia. Normal urethra. Vagina: Normal pink mucosa. No discharge. Cervix: No lesions, non-tender. Displaced by mass, patient very tender with exam. Uterus: cannot clearly palpate due to discomfort with exam. Adnexa: No palpable masses. Rectal: Rectovaginal septum smooth. No masses. Normal rectal tone. Genetic Testing n/a Advance Directives Reviewed with patient on 11/13/[address], DPOE ASSESSMENT/PLAN I have reviewed old records and notes from [facility] and Care Everywhere, as appropriate, in summarizing the patient's prior relevant history to make my assessment and to formalize my recommended plan of care. See full assessment and plan summary at top of note. Signed, Aletha Francois MD 11/13/2020 * Alem Valladares LNA - 11/13/2020 3:00 PM EDT Examination chaperoned by EMILY Flores. documented in this encounter Plan of Treatment Not on file documented as of this encounter Procedures Procedure Name Priority Date/Time Associated Diagnosis Comments HC CARBOHYDRATE ANTIGEN 19-9 STAT 11/13/2020 4:56 PM EDT HC VENIPUNCTURE STAT 11/13/2020 4:56 PM EDT HC CARCINO-EMBRYONIC AG ASSAY STAT 11/13/2020 4:56 PM EDT documented in this encounter Results * EKG 12 Lead (11/13/2020 5:23 PM EDT) Ventricular rate 105 BPM MUSE SYSTEM Atrial Rate 105 BPM MUSE SYSTEM P-R Interval 154 ms MUSE SYSTEM QRS Duration 74 ms MUSE SYSTEM Q-T Interval 336 ms MUSE SYSTEM QTC Calculated (Bezet) 444 ms MUSE SYSTEM Calculated P Devers 64 degrees MUSE SYSTEM Calculated R Devers 4 degrees MUSE SYSTEM Calculated T Devers 51 degrees MUSE SYSTEM INTERPRETATION Sinus tachycardia Cannot rule out Anterior infarct , age undetermined Abnormal ECG No previous ECGs available Confirmed by MD Perez Rajbir S ([id number]) on 11/14/2020 10:10:12 AM MUSE SYSTEM 11/13/2020 5:23 PM EDT 11/14/2020 10:10 AM EDT Aletha Francois MD ECG ORDERABLES MUSE SYSTEM * Creatinine (11/13/2020 4:56 PM EDT) Creatinine 0.90 0.70 - 1.20 mg/dL [facility] Est Glomerular Filtration Rate 67 >=60 mL/min/1. 73 m?? [facility] Comment: This patient? s estimated glomerular filtration rate (eGFR) is between 67 mL/min/1.73 m2 (patients with less muscle mass) and 78 mL/min/1.73 m2 (patients with more muscle mass) [...] and symptoms in addition to eGFR. Blood 11/13/2020 4:56 PM EDT 11/13/2020 5:03 PM EDT Narrative Resulting Agency Comment Spec In Lab Aletha Francois MD CHEMISTRY ORDERABLES Performing Organization Address [facility]/ZIP Co de Phone Number [facility] [place] [address] * (ABNORMAL) BUN (11/13/2020 4:56 PM EDT) Blood Urea Nitrogen 5(L) 8 - 18 mg/dL [facility] Blood 11/13/2020 4:56 PM EDT 11/13/2020 5:03 PM EDT Narrative Resulting Agency Comment Spec In Lab Aletha Francois MD CHEMISTRY ORDERABLES Performing Organization Address [facility] Co de Phone Number [facility] [place] [address] * Electrolytes panel (11/13/2020 4:56 PM EDT) Sodium 142 135 - 145 mmol/L [facility] Potassium 3.7 3.5 - 5.0 mmol/L [facility] Comment: Please note: ??Patients with WBC >100,000 may have falsely elevated Potassium levels. ??For accurate Potassium quantification in these patients send serum separator tube (gold top) for subsequent determinations. ??Contact the Clinical Chemistry Laboratory if there are any questions. Chloride 102 98 - 107 mmol/L [facility] Carbon Dioxide 26 22 - 31 mmol/L [facility] Anion Gap 14 5 - 15 mmol/L [facility] Blood 11/13/2020 4:56 PM EDT 11/13/2020 5:03 PM EDT Narrative Resulting Agency Comment Spec In Lab Aletha Francois MD CHEMISTRY ORDERABLES Performing Organization Address City/[facility]/ZIP Co de Phone Number [facility] [place] [address] * CEA (11/13/2020 4:56 PM EDT) Carcinoembryonic Antigen 0.8 <=3.8 ng/mL [facility] Comment: Reference range: ??(20-69 years): Non-smoker: ??less than or equal to 3.8 ng/mL Smoker: ??less than 5.5 ng/ml Blood 11/13/2020 4:56 PM EDT 11/13/2020 5:03 PM EDT Narrative Resulting Agency Comment Spec In Lab Aletha Francois MD CHEMISTRY ORDERABLES Performing Organization Address [facility] Co de Phone Number [facility] [place] [address] * Carbohydrate Antigen 19-9 (11/13/2020 4:56 PM EDT) CA 19-9 17.1 <=35.0 u/ml [facility] Blood 11/13/2020 4:56 PM EDT 11/13/2020 5:03 PM EDT Narrative Resulting Agency Comment Spec In Lab Aletha Francois MD CHEMISTRY ORDERABLES Performing Organization Address City/[facility]/ZIP Co de Phone Number [facility] [place] [address] * Cancer Antigen 125 (11/13/2020 4:56 PM EDT) CA 125 19.6 <=38.1 unit/mL [facility] Comment: CA 125 Reference Interval ??Postmenopausal: 6.2 to 31.5 U/mL. ??Premenopausal: 6.9 to 45.9 U/mL. ??Pre and Postmenopausal subjects combined: 6.4 to 38.1 U/mL. Blood 11/13/2020 4:56 PM EDT 11/13/2020 5:03 PM EDT Narrative Resulting Agency Comment Spec In Lab Aletha Francois MD CHEMISTRY ORDERABLES Performing Organization Address City/State/[facility] Co de Phone Number [facility] [place] [address] documented in this encounter Visit Diagnoses Diagnosis Intra-abdominal and pelvic swelling, mass and lump, unspecified site documented in this encounter Care Teams Unit Secy Relationship Specialty Start Date End Date Sue Espinosa PA [address] [address] PCP - General Family Medicine 11/09/20 02/14/22 documented as of this encounter
--- OUTSIDE RECORDS SUMMARY | 2024-01-02 18:42 | XMS_ITS | Encounter Summary ---
Author Organization [facility] Address [address] [place] [address] Care Team Providers Care Grinding Room Inspector Name Role Phone Unknown, Provider Primary Care Provider Encounter Details Date Type Department Care Team (Late st Contact Info) Description 03/01/2021 Lab Requisition [facility] Pathology & Laboratory Medicine - [place] [address] [place] [address] Outr Resulting Lab, Provider Social History Tobacco Use Types Packs/Day Years Used Date Smoking Tobacco: Never Smokeless Tobacco: Never Interpersonal Safety Answer Date Record ed Physically Hurt Never 10/27/2019 Verbally Threaten Not on file 10/27/2019 Sex and Gender Information Value Date Recorded Sex Assigned at Not on file Gender Identity Not on file Sexual Orientation Not on file documented as of this encounter Plan of Treatment Not on file documented as of this encounter Procedures Procedure Name Priority Date/Time Associated Diagnosis Comments CA 125 Routine 03/01/2021 10:30 EST documented in this encounter Results * CA 125 (03/01/2021 10:30 EST) CA 125 13 <30 U/mL 03/02/2021 10:48 EST [facility] Comment: NOTE: Serum CA 125 concentration should not be interpreted as absolute evidence for the presence or absence of malignant disease. Assayed on Siemens ADVIA Centaur XPT using chemiluminescent technology. ??Values obtained by using different assay methods cannot be used interchangeably. Blood VENOUS BLOOD / Unknown 03/01/2021 10:30 EST 03/01/2021 16:30 EST Provider Outr Resulting Lab CHEMISTRY & BLOOD GAS ORDERABLES [facility] [address] [place] [address] documented in this encounter Visit Diagnoses Not on filedocumented in this encounter Care Teams Grinding Room Inspector Relationship Specialty Start Date End Date Unknown, Provider, PCP - General 02/15/18 documented as of this encounter
--- OUTSIDE RECORDS SUMMARY | 2024-01-02 18:42 | XMS_ITS | Encounter Summary ---
Author Organization [facility] Address [address] [place] [address] Care Team Providers Care Supervisor Cell Maintenance Name Role Phone Unknown, Provider Primary Care Provider Encounter Details Date Type Department Care Team (Late st Contact Info) Description 01/05/2021 Lab Requisition [facility] Pathology & Laboratory Medicine - [facility] [address] [place] [address] Outr Resulting Lab, Provider Social History Tobacco [...] Date/Time Associated Diagnosis Comments CA 125 Routine 01/05/2021 9:53 EDT documented in this encounter Results * CA 125 (01/05/2021 9:53 EDT) CA 125 20 <30 U/mL 01/06/2021 13:32 EDT [facility] Comment: NOTE: Serum CA 125 concentration should not be interpreted as absolute evidence for the presence or absence of malignant disease. Assayed on Siemens ADVIA Centaur XPT using chemiluminescent technology. ??Values obtained by using different assay methods cannot be used interchangeably. Blood VENOUS BLOOD / Unknown 01/05/2021 9:53 EDT 01/05/2021 21:23 EDT Provider Outr Resulting Lab CHEMISTRY & BLOOD GAS ORDERABLES [facility] [address] [place] [address] documented in this encounter Visit Diagnoses Not on filedocumented in this encounter Care Teams Supervisor Cell Maintenance Relationship Specialty Start Date End Date Unknown, Provider, PCP - General 02/15/18 documented as of this encounter
--- OUTSIDE RECORDS SUMMARY | 2024-01-02 18:42 | XMS_ITS | Encounter Summary ---
Author Organization [facility] Address [address] [place] [address] Care Team Providers Care Family Resource Management Specialist Name Role Phone Unknown, Provider Primary Care Provider Encounter Details Date Type Department Care Team (Late st Contact Info) Description 10/14/2021 Lab Requisition [facility] Pathology & Laboratory Medicine - [facility] [address] [place] [address] Outr Resulting Lab, Provider Social History Tobacco [...] Date/Time Associated Diagnosis Comments CA 125 Routine 10/14/2021 13:55 EDT documented in this encounter Results * CA 125 (10/14/2021 13:55 EDT) CA 125 7 <30 U/mL 10/15/2021 9:45 EDT [facility] Comment: NOTE: Serum CA 125 concentration should not be interpreted as absolute evidence for the presence or absence of malignant disease. Assayed on Siemens ADVIA Centaur XPT using chemiluminescent technology. ??Values obtained by using different assay methods cannot be used interchangeably. Blood VENOUS BLOOD / Unknown 10/14/2021 13:55 EDT 10/14/2021 21:13 EDT Provider Outr Resulting Lab CHEMISTRY & BLOOD GAS ORDERABLES [facility] [address] [place] [address] documented in this encounter Visit Diagnoses Not on filedocumented in this encounter Care Teams Family Resource Management Specialist Relationship Specialty Start Date End Date Unknown, Provider, PCP - General 02/15/18 documented as of this encounter
--- OUTSIDE RECORDS SUMMARY | 2024-01-02 18:42 | XMS_ITS | Encounter Summary ---
Author Organization [facility] Address [address] [place] [address] Care Team Providers Care Windows System Admin Name Role Phone Unknown, Provider Primary Care Provider Encounter Details Date Type Department Care Team (Late st Contact Info) Description 03/24/2021 Lab Requisition [facility] Pathology & Laboratory Medicine - [facility] [address] [place] [address] Outr Resulting Lab, Provider Social History Tobacco [...] Date/Time Associated Diagnosis Comments CA 125 Routine 03/24/2021 13:38 EST documented in this encounter Results * CA 125 (03/24/2021 13:38 EST) CA 125 19 <30 U/mL 03/25/2021 10:39 EST [facility] Comment: NOTE: Serum CA 125 concentration should not be interpreted as absolute evidence for the presence or absence of malignant disease. Assayed on Siemens ADVIA Centaur XPT using chemiluminescent technology. ??Values obtained by using different assay methods cannot be used interchangeably. Blood VENOUS BLOOD / Unknown 03/24/2021 13:38 EST 03/24/2021 21:29 EST Provider Outr Resulting Lab CHEMISTRY & BLOOD GAS ORDERABLES [facility] [address] [place] [address] documented in this encounter Visit Diagnoses Not on filedocumented in this encounter Care Teams Windows System Admin Relationship Specialty Start Date End Date Unknown, Provider, PCP - General 02/15/18 documented as of this encounter
--- OUTSIDE RECORDS SUMMARY | 2024-01-02 18:42 | XMS_ITS | Encounter Summary ---
Author Organization [facility] Address [address] [place] [address] Care Team Providers Care Library Historian Name Role Phone Unknown, Provider Primary Care Provider Encounter Details Date Type Department Care Team (Late st Contact Info) Description 12/28/2020 Lab Requisition [facility] Pathology & Laboratory Medicine - [facility] [address] [place] [address] Outr Resulting Lab, Provider Social History Tobacco [...] Date/Time Associated Diagnosis Comments CA 125 Routine 12/28/2020 13:35 EDT documented in this encounter Results * CA 125 (12/28/2020 13:35 EDT) CA 125 21 <30 U/mL 12/29/2020 9:45 EDT [facility] Comment: NOTE: Serum CA 125 concentration should not be interpreted as absolute evidence for the presence or absence of malignant disease. Assayed on Siemens ADVIA Centaur XPT using chemiluminescent technology. ??Values obtained by using different assay methods cannot be used interchangeably. Blood VENOUS BLOOD / Unknown 12/28/2020 13:35 EDT 12/28/2020 20:59 EDT Provider Outr Resulting Lab CHEMISTRY & BLOOD GAS ORDERABLES [facility] [address] [place] [address] documented in this encounter Visit Diagnoses Not on filedocumented in this encounter Care Teams Library Historian Relationship Specialty Start Date End Date Unknown, Provider, PCP - General 02/15/18 documented as of this encounter
--- OUTSIDE RECORDS SUMMARY | 2024-01-02 18:42 | XMS_ITS | Encounter Summary ---
Author Organization [facility] Address [facility] [place] [address] Care Team Providers Care Auto Garage Attendant Name Role Phone Sue Espinosa Primary Care Provider [phone] Reason for Visit * Auth/Cert Specialty Diagnoses [...] Expiration Date Visits Re quested Visits Authorized [id number] 1 Encounter Details Date Type Department Care Team (Late st Contact Info) Description 11/19/2020 12:30 PM EDT - 11/19/2020 4:31 PM EDT Surgery [place] [address] Aletha Francois MD [facility] [address] OBSTETRICS [place] [address] @LYMPHADENECTOMY, LIMITED FOR STAGING, RETROPERITONEAL (WRVU 11.38) Social History Tobacco Use Types Packs/Day Years [...] Sign Reading Time Taken Comments Blood Pressure 149/66 11/19/2020 11:11 AM EDT Pulse 101 11/19/2020 11:11 AM EDT Temperature 37.6 ??C (99.7 ??F) 11/19/2020 11:11 AM E DT Respiratory Rate 18 11/19/2020 11:11 AM EDT Oxygen Saturation 97% 11/19/2020 11:11 AM EDT Inhaled Oxygen Concentration - - Weight 73.9 kg (163 lb) 11/19/2020 11:11 AM EDT Height 165.1 cm (5' 5) 11/19/2020 11:11 AM EDT Body Mass Index 27.07 11/19/2020 11:11 AM EDT documented in this encounter Discharge Summaries * Citlali Jarvis N - 11/21/2020 11:19 AM EDT Images from the original note were not included. Discharge Summary Patient Name: Dalia Mcfarlane Patient Age: 65 y.o. Language: Romanian Race: White Ethnicity: Not nor Admit date: 11/19/2020 Discharge date and time: 11/21/20 Attending Physician: Aletha Francois MD Discharge Physician: Aletha Francois MD Follow-up Recommendations for Providers: -Follow-up with Dr. Francois on 12/03/20 at 9:00AM Inpatient Provider Contact Information: Dr. Aletha Francois, [facility] Gynecologic Oncology, Discharge Diagnoses (Hospital Problems) [...] onset abdominal pain and presented to ED [facility] 11/06/20 associated with some nausea. Patient reports prior episode 10 years earlier and diagnosis with UTI andtreated with antibiotic. CT scan showed pelvic mass. Patient had imaging and puga catheter placed and d/c home. Patient still has pain lower abdomen now described as a 5 of 10. Mild nausea no emesis, bowel movement normal. Patient has not had pelvic exam or adult crossing guard care in many years, no issues. CA-125: [...] PATIENT DISCHARGE INSTRUCTIONS Gynecologic Oncology phone number: [phone]. After hours and on weekends please call hospital valve machine operator at [phone] and ask for Gynecologic Oncologist government operations consultant. Call your doctor if you develop: --A [...] AM Aletha Francois MD Gynecology Oncology at [facility] Arrive at: Bituminous Distributor Operator Area [phone] Discharge References/Attachments None Provider Contact Information: BAILEY Cannon [phone] documented in this encounter Discharge Instructions * Patient Instructions* Citlali Jarvis N - 11/19/2020 3:32 PM EDT Images from the original note were not included. PATIENT DISCHARGE INSTRUCTIONS Gynecologic Oncology phone number: [phone]. After hours and on weekends please call hospital valve machine operator at [phone] and ask for Gynecologic Oncologist government operations consultant. Call your doctor if you develop: --A [...] Encounter Note Patient Name: Dalia Mcfarlane : [id number] MR#: [id number] Admit Date: 11/19/2020 10:48 AM Hospital Day [...] Time in Direct Care: 30 min. Rona Nciole 11/25/2020 * Rona Nicole - 11/21/2020 2:15 PM EDT Jewellery Designer Encounter Note Patient Name: Dalia Mcfarlane : [id number] MR#: [id number] Admit Date: 11/19/2020 10:48 AM Hospital Day [...] high grade clear cell ovarian cancer. Subjective: aDlia is lying in bed this morning, pain [...] Code Patient discussed with Dr. Francois, attending ELECTRONIC WARFARE SPECIALIST Oncologist Citlali Jarvis MD PGY-4 11/21/20 Associated [...] if applicable: CPG GOAL OUTCOME EVALUATION: * Rona Nicole - 11/20/2020 4:46 PM EDT Krissy Encounter Note Patient Name: Dalia Mcfarlane : [id number] MR#: [id number] Admit Date: 11/19/2020 10:48 AM Hospital Day [...] because she does not feel that the FARM OPERATOR is adequately covering her pain. She has [...] with Tylenol, Toradol, TAP block and Dilaudid FARM OPERATOR, per pt. FARM OPERATOR interval was decreased last night to allow more frequent dosing overnight. Complains of 10/10 pain for all recorded values in the Pain Accordion. Received 2.4mg Dilaudid via FARM OPERATOR overnight. -- restart home gabapentin of 600mg [...] Code Patient discussed with Dr. Francois, attending ELECTRONIC WARFARE SPECIALIST Oncologist Citlali Jarvis MD PGY-4 11/20/20 Associated [...] plans for chemotherapy. Questions answered. * Sue Chase, RN - 11/20/2020 6:30 AM EDT OUTCOME [...] well with the TAP block and Dilaudid FARM OPERATOR for pain control . She has no specific complaints and her pain is well controlled with the above measures and Tylenol, ibuprofen, and Dilaudid FARM OPERATOR. She has tolerated lele kurt andcrackers without [...] with Tylenol, Toradol, TAP block and Dilaudid FARM OPERATOR. -- transition to PO pain meds when [...] of abdominal pain, medicated with hydromorphone iv [phone] : livestock caretaker initiated, instruction given to patient, understands, vs's, [...] with opioid medications. [place] Shraddha Mack PA-C Gynecologic Oncology [id number] / Cross Country Truck Driver Onc [id number] documented in this encounter Nursing Notes * Stacey Huggins RN - 11/19/2020 10:44 PM EDT 1999-Received report from YVES Gómez. Pt resting comfortably at this time. 2199-Pt reminded to push FARM OPERATOR button when in pain. Pt now watching tv and eating crackers. 2244-MD Stanley at the bedside rounding documented in this [...] good understanding and acceptance verbalized. in to picker and packer scripts from [facility] pharmacy. verbalizes confidence giving lovenox injections. Pt sent to D/C in WC with transport. PLAN MOVING FORWARD: Home on lovenox Follow up with ELECTRONIC WARFARE SPECIALIST * Initial Assessments - Bib Eaton RN - 11/20/2020 1:40 PM EDT Office of Care Management Initial Assessment Bib Eaton RN reviewed record and discussed patient with Care Team. Source of Information: Team, bedside nurse, medical record, and Patient Introduced self/reviewed role; services accepted. Reason for Hospitalization: I had surgery Last COVID test: Lab Results Component Value Date [id number] Not Detected 11/19/2020 Past medical History: Past [...] walker - standard Home Address confirmed as: [address] [place] [address] Social & Family Supports: All names listed [...] Insurance: N/A Prescription Coverage: Yes Preferred Pharmacy: [id number] - [place], [place] - [address] [facility] [address] Status: Patient is a : No Primary Care Provider: BAILEY Cannon [phone] Patient/Caregiver Goals of Treatment: return home tomorrow with her Potential Needs for Transition of Care: none Agency Referrals: Not needed per patient, no choice made Transportation: no concerns Transportation Anticipated: family or friend will provide Concerns to be Addressed: no discharge needs identified Assessment: Patient is admitted to ELECTRONIC WARFARE SPECIALIST Onc service for surgery Plan: discharge to home tomorrow with family, no needs identified A member of the Care Management team will continue to monitor progress, follow for continuity of care and assist with transition of care planning. Bib Eaton RN CM Pager [phone] * Brief Op Note - Aletha Francois MD - 11/19/2020 5:37 PM EDT Brief Operative Note Patient Name: Dalia Mcfarlane : [id number] MR#: [id number] Case Date: 11/19/2020 Surgeon: Surgeon(s) and Role: [...] Left ovary for frozen section OR #`[id number] Pelvic mass Left Ovary excision YES, Please [...] ovary number 2 eD-H Order Id number [id number] SPECIMEN TO PATHOLOGY pelvic mass left ovary [...] Francois MD - 11/19/2020 2:05 PM EDT [facility] Operative Note Patient Name: Dalia Mcfarlane : [id number] MR#: [id number] Case Date: 11/19/2020 Surgeon: Surgeon(s) and Role: [...] Left ovary for frozen section OR #`[id number] Pelvic mass Left Ovary excision YES, Please [...] stitches at the angles. Two additional interrupted [id number] sutures were placed on the intervening vaginal [...] 11/19/2020 3:46 PM EDT RAPID COVID-19 PCR ([facility]/APD/NL) Routine 11/19/2020 3:30 PM EDT SPECIMEN TO [...] TO PATHOLOGY STAT 11/19/2020 2:46 PM EDT NON-ELECTRONIC WARFARE SPECIALIST FINAL REPORT Routine 11/19/2020 2:26 PM EDT CYTOPATHOLOGY NON-GYNECOLOGICAL Routine 11/19/2020 2:26 PM EDT HC URINE CULTURE Routine 11/19/2020 2:10 PM EDT Naman Salp-Ooph W/Omentect, Ector, Rad Dissect ([id number]) Yes 11/19/2020 1:20 PM EDT PELVIC MASS Removal, Abdomen Lymph Node, Staging ([id number]) Yes 11/19/2020 1:20 PM EDT PELVIC MASS POCT GLUCOSE Routine 11/19/2020 11:15 AM EDT documented in this encounter Results * (ABNORMAL) Differential, Automated (11/20/2020 8:35 AM EDT) Neutrophil % 89.0 % [facility] Neutrophil Absolute 9.18(H) 1.70 - 6.10 x10(3)/mc L [facility] Lymph % 5.6 % [facility] Lymphocytes Abs 0.6(L) 0.9 - 3.2 x10(3)/mc L [facility] Monocyte % 4.8 % [facility] Monocyte Abs 0.5 0.3 - 0.9 x10(3)/mc L [facility] Eos % 0.0 % [facility] Eosinophils Abs 0.0 0.0 - 0.4 x10(3)/mc L [facility] Basophil % 0.1 % [facility] Baso Absolute 0.0 0.0 - 0.1 x10(3)/mc L [facility] Immature Gran % 0.50 % [facility] Comment: Immature granulocytes(IG's)percentage and absolute count will include metamyelocytes, myelocytes, and promyelocytes. Blood smears from CBCs yielding IG's will be scanned manually for concordance. If this scan disagrees with the automated IG or if promyelocytes are noted, a manual differential will be performed. Immature Gran Absolute 0.05(H) 0.00 - 0.04 x10(3)/mc L [facility] Blood 11/20/2020 8:35 AM EDT 11/20/2020 9:12 AM EDT Narrative Resulting Agency Comment Spec In Lab Shraddha AVALOS HEMATOLOGY ORDERABLE S [facility] [place] [address] * (ABNORMAL) Hemogram (11/20/2020 8:35 AM EDT) White Blood Cell 10.3(H) 4.0 - 9.5 x10(3)/mc L [facility] Red Blood Cell 3.34(L) 4.00 - 5.21 x10(6)/mc L [facility] Hemoglobin 10.8(L) 11.7 - 15.5 gm/dL [facility] Hematocrit 32.0(L) 35.7 - 45.8 % [facility] Mean Cell Volume 95.8(H) 82.6 - 94.4 fL [facility] Mean Cell Hemoglobin 32.3(H) 27.1 - 32.0 pg [facility] Mean Cell Hemoglobin Concentration 33.8 31.7 - 35.0 gm/dL [facility] Platelet 255 145 - 357 x10(3)/mc L [facility] RDW Standard Deviation 41.5 37.0 - 46.0 fL [facility] RDW coefficient of variation 11.9 11.5 - 14.1 % [facility] Mean Platelet Volume 9.5 7.6 - 12.9 fL [facility] NRBC% auto 0.0 % [facility] NRBC Absolute 0.000 0.000 - 0.000 x10(3)/mc L [facility] Blood 11/20/2020 8:35 AM EDT 11/20/2020 9:12 AM EDT Narrative Resulting Agency Comment Spec In Lab Shraddha AVALOS HEMATOLOGY ORDERABLE S Performing Organization Address City/[facility]/ZIP Co de Phone Number [facility] [place] [address] * Magnesium (11/20/2020 8:35 AM EDT) Magnesium 0.75 0.69 - 1.07 mmol/L [facility] Blood 11/20/2020 8:35 AM EDT 11/20/2020 9:12 AM EDT Narrative Resulting Agency Comment Spec In Lab Aletha Francois MD CHEMISTRY ORDERABLES Performing Organization Address City/[facility]/ZIP Co de Phone Number [facility] [place] [address] * (ABNORMAL) Basic Metabolic Panel (non-fasting) (11/20/2020 8:35 AM EDT) Glucose 166 65 - 199 mg/dL [facility] Comment:Diabetes: >=200 mg/d L plus symptoms Blood Urea Nitrogen 7(L) 8 - 18 mg/dL [facility] Creatinine 0.78 0.70 - 1.20 mg/dL [facility] Sodium 138 135 - 145 mmol/L [facility] Potassium 4.1 3.5 - 5.0 mmol/L [facility] Comment: Please note: ??Patients with WBC >100,000 may have falsely elevated Potassium levels. ??For accurate Potassium quantification in these patients send serum separator tube (gold top) for subsequent determinations. ??Contact the Clinical Chemistry Laboratory if there are any questions. Chloride 104 98 - 107 mmol/L [facility] Carbon Dioxide 23 22 - 31 mmol/L [facility] Anion Gap 11 5 - 15 mmol/L [facility] Calcium 8.5 8.5 - 10.5 mg/dL [facility] Est Glomerular Filtration Rate 80 >=60 mL/min/1. 73 m?? [facility] Comment: This patient? s [...] In Lab Aletha Francois MD CHEMISTRY ORDERABLES [facility] [place] [address] * Specimen to Pathology (11/19/2020 4:17 PM EDT) AP Specimen 11/19/2020 4:17 PM EDT 11/19/2020 4:17 PM EDT Narrative [facility] - 11/19/2020 4:17 PM EDT Specimen requisition ordered. ??Separate Pathology report to follow Aletha Francois MD PATHOLOGY/CYTOLOGY O RDERABLES [facility] [place] [address] * Specimen to Pathology (11/19/2020 4:11 PM EDT) AP Specimen 11/19/2020 4:11 PM EDT 11/19/2020 4:11 PM EDT Narrative [facility] - 11/19/2020 4:11 PM EDT Specimen requisition ordered. ??Separate Pathology report to follow Aletha Francois MD PATHOLOGY/CYTOLOGY O RDCANDELARIA Performing Organization Address City/[facility]/[place] [address] * Specimen to Pathology (11/19/2020 4:11 PM EDT) AP Specimen 11/19/2020 4:11 PM EDT 11/19/2020 4:11 PM EDT Narrative [facility] - 11/19/2020 4:11 PM EDT Specimen requisition ordered. ??Separate Pathology report to follow Aletha Francois MD PATHOLOGY/CYTOLOGY O MIRZA Performing Organization Address [facility] [place] [address] * Specimen to Pathology (11/19/2020 4:08 PM EDT) AP Specimen 11/19/2020 4:08 PM EDT 11/19/2020 4:08 PM EDT Narrative [facility] - 11/19/2020 4:08 PM EDT Specimen requisition ordered. ??Separate Pathology report to follow Aletha Francois MD PATHOLOGY/CYTOLOGY O MIRZA Performing Organization Address [facility]/[place] [address] * Specimen to Pathology (11/19/2020 4:08 PM EDT) AP Specimen 11/19/2020 4:08 PM EDT 11/19/2020 4:08 PM EDT Narrative [facility] - 11/19/2020 4:08 PM EDT Specimen requisition ordered. ??Separate Pathology report to follow Aletha Francois MD PATHOLOGY/CYTOLOGY O MIRZA Performing Organization Address City/[facility]/ZIP Co de Phone Number [facility] [place] [address] * Specimen to Pathology (11/19/2020 3:46 PM EDT) AP Specimen 11/19/2020 3:46 PM EDT 11/19/2020 3:46 PM EDT Narrative [facility] - 11/19/2020 3:46 PM EDT Specimen requisition ordered. ??Separate Pathology report to follow Aletha Francois MD PATHOLOGY/CYTOLOGY O RDCANDELARIA Performing Organization Address City/[facility]/ZIP Co de Phone Number [facility] [place] [address] * Specimen to Pathology (11/19/2020 3:46 PM EDT) AP Specimen 11/19/2020 3:46 PM EDT 11/19/2020 3:46 PM EDT Narrative [facility] - 11/19/2020 3:46 PM EDT Specimen requisition ordered. ??Separate Pathology report to follow Aletha Francois MD PATHOLOGY/CYTOLOGY O MIRZA Performing Organization Address City/[facility] Co de Phone Number [facility] [place] [address] * COVID-19 PCR (11/19/2020 3:30 PM EDT) SARS-CoV-2 RNA (Rapid) Not Detected Not Detected [facility] Comment: This result should [...] using the Simplexa COVID-19 Direct Assay by [employer] as authorized by the FDA issued Emergency [...] Department of Pathology and Laboratory Medicine at [facility], certified under the Clinical Laboratory Improvement [...] fact sheets at the following FDA website: https://www.fda.gov/medical-devices/fhmrwznobve-sftxycq-7284-dnoon-66-vciesxmqj- use-a toquwpankrsol-kayzqgi-pvpsuwm/mslvm-lqeojxkgxsq-kgpo SARS-CoV-2 Source OPERATOR CONTROL ROOM Swab [place] [facility] Nasopharyngeal Swab 11/20/19 3:30 PM EDT 11/19/2020 3:46 PM EDT Comment:Symptoms->Surveillan ce Narrative Resulting Agency Comment Spec In Lab Aletha Francois MD MICROBIOLOGY - GENER AL ORDERABLES [facility] [place] [address] * Specimen to Pathology (11/19/2020 3:18 PM EDT) AP Specimen 11/19/2020 3:18 PM EDT 11/19/2020 3:18 PM EDT Narrative [facility] - 11/19/2020 3:18 PM EDT Specimen requisition ordered. ??Separate Pathology report to follow Aletha Francois MD PATHOLOGY/CYTOLOGY O MIRZA Performing Organization Address City/[facility]/[place] [address] * Specimen to Pathology (11/19/2020 3:18 PM EDT) AP Specimen 11/19/2020 3:18 PM EDT 11/19/2020 3:18 PM EDT Narrative [facility] - 11/19/2020 3:18 PM EDT Specimen requisition ordered. ??Separate Pathology report to follow Aletha Francois MD PATHOLOGY/CYTOLOGY O MIRZA Performing Organization Address [facility]/[place] [address] * Specimen to Pathology (11/19/2020 3:18 PM EDT) AP Specimen 11/19/2020 3:18 PM EDT 11/19/2020 3:18 PM EDT Narrative [facility] - 11/19/2020 3:18 PM EDT Specimen requisition ordered. ??Separate Pathology report to follow Aletha Francois MD PATHOLOGY/CYTOLOGY O MIRZA Performing Organization Address City/[facility]/[place] [address] * Specimen to Pathology (11/19/2020 3:18 PM EDT) AP Specimen 11/19/2020 3:18 PM EDT 11/19/2020 3:18 PM EDT Narrative [facility] - 11/19/2020 3:18 PM EDT Specimen requisition ordered. ??Separate Pathology report to follow Aletha Francois MD PATHOLOGY/[place] [address] * Specimen to Pathology (11/19/2020 3:13 PM EDT) AP Specimen 11/19/2020 3:13 PM EDT 11/19/2020 3:13 PM EDT Narrative [facility] - 11/19/2020 3:13 PM EDT Specimen requisition ordered. ??Separate Pathology report to follow Aletha Francois MD PATHOLOGY/CYTOLOGY O RDCANDELARIA Performing Organization Address [facility]/[place] [address] * Specimen to Pathology (11/19/2020 3:11 PM EDT) AP Specimen 11/19/2020 3:11 PM EDT 11/19/2020 3:11 PM EDT Narrative [facility] - 11/19/2020 3:11 PM EDT Specimen requisition ordered. ??Separate Pathology report to follow Aletha Francois MD PATHOLOGY/CYTOLOGY O MIRZA Performing Organization Address [facility]/[place] [address] * Specimen to Pathology (11/19/2020 3:11 PM EDT) AP Specimen 11/19/2020 3:11 PM EDT 11/19/2020 3:11 PM EDT Narrative [facility] - 11/19/2020 3:11 PM EDT Specimen requisition ordered. ??Separate Pathology report to follow Aletha Francois MD PATHOLOGY/CYTOLOGY O RDCANDELARIA Performing Organization Address City/[facility]/[place] [address] * Specimen to Pathology (11/19/2020 3:02 PM EDT) AP Specimen 11/19/2020 3:02 PM EDT 11/19/2020 3:02 PM EDT Narrative [facility] - 11/19/2020 3:02 PM EDT Specimen requisition ordered. ??Separate Pathology report to follow Aletha Francois MD PATHOLOGY/CYTOLOGY O MIRZA Performing Organization Address [facility] de Phone Number [facility] [place] [address] * Specimen to Pathology (11/19/2020 2:59 PM EDT) AP Specimen 11/19/2020 2:59 PM EDT 11/19/2020 2:59 PM EDT Narrative [facility] - 11/19/2020 2:59 PM EDT Specimen requisition ordered. ??Separate Pathology report to follow Aletha Francois MD PATHOLOGY/CYTOLOGY O MIRZA Performing Organization Address [facility] de Phone Number [facility] [place] [address] * Specimen to Pathology (11/19/2020 2:57 PM EDT) AP Specimen 11/19/2020 2:57 PM EDT 11/19/2020 2:57 PM EDT Narrative [facility] - 11/19/2020 2:57 PM EDT Specimen requisition ordered. ??Separate Pathology report to follow Aletha Francois MD PATHOLOGY/CYTOLOGY O MIRZA Performing Organization Address [facility] de Phone Number [facility] [place] [address] * Surgical Pathology Report (11/19/2020 2:46 PM EDT) Final Diagnosis [id number] ? Location: 1WST; 0116; A The signing [...] MD Verified: ??12/09/2020 12:56 ??Pathologist Performed at: ??-[facility] Dept. of Pathology, [place], [place] [employer] Specimen ? Procedure: ??Simple hysterectomy; [...] report. - JLG 12/09/20 12:55 Scanned slides: [id number] [id number] B7-1 [id number] E1-1 SPECIMEN(S) SUBMITTED A - Left ovary, [...] tissue is submitted for frozen section: Two outside sales representative insurance sections submitted for frozen section as FS 1. Entirely submitted in 3 cassettes as follows: ?A1: FS 1 ?A2-A3: Remaining tissue B - Labeled/Fixative: Left ovary #2, fresh. Tissue Description: Disrupted, oophorectomy. LEFT OVARY ?? Size: 10.0 x 6.0 x 2.0 cm, 71.0 grams. ?? Outer Surface: [place], smooth with hemorrhagic fibrous adhesions. ?? Cut Surface: Unilocular cystic lesion with a finely granular pink-red ?? lining with a 1.0 cm soft, red excrescence. The wall ranges ?? from 0.2-1.0 cm thick is rubbery with soft white solid areas. The following tissue is submitted for frozen section: Two outside sales representative insurance sections submitted for frozen section as FS 1. Supervisor Salvage sections in 7 cassettes as follows: ?B1: FS 1 ?B2-B7: Supervisor Salvage ovary C - Labeled/Fixative: Right tube and ovary, fresh. Tissue Description: Intact salpingo-oophorec vivian. RIGHT OVARY ?? Size: 2.5 x 2.5 x 1.0 cm. ?? Outer Surface: [place], smooth with red hemorrhagic adhesions. ?? Cut Surface: Thick walled unilocular cyst with a finely ?? granular red lining. Right Fallopian Tube: 4.8 x 0.5 x 0.5 cm, fimbriated. . SPECIMEN PROCESSING Supervisor Salvage sections in 7 cassettes as follows: ?C1-C4: Supervisor Salvage ovary ?C5-C7: Fallopian tube, entirely submitted D [...] calcified white and yellow intramural nodule. Serosa: [place] with diffuse hemorrhagic adhesions. CERVIX Diameter: 2.0 cm. Os: 0.6 cm, slitlike. Supervisor Salvage sections in 6 cassettes as follows: ?F1-F2: [...] cm. The lymph nodes are entirely submitted. Supervisor Salvage sections in 6 cassettes as follows: ?K1-K2: One node serially sectioned ?K3-K4: One node serially sectioned ?K5-K6: One node serially sectioned L - Labeled/Fixative: Left para-aortic lymph nodes, fresh. Quantity/Size: Single, 4.0 x 1.8 x 0.8 cm. Tissue Description: Adipose tissue with two lymph nodes, up to 1.7 cm. The lymph nodes are entirely submitted. Supervisor Salvage sections in 2 cassettes as follows: ?L1: One node bisected ?L2: One node quadrisected M - Labeled/Fixative: Right pelvic lymph nodes, fresh. Quantity/Size: Multiple, 3.5 x 3.5 x 2.0 cm. Tissue Description: Adipose tissue with five lymph nodes, up to 3.0 cm. The lymph nodes are entirely submitted. Supervisor Salvage sections in 5 cassettes as follows: ?M1: One node bisected ?M2: One node bisected ?M3: One node bisected ?M4: One node trisected ?M5: One node bisected N - Labeled/Fixative: Omentum #1, fresh. Quantity/Size: Single, 5.5 x 5.0 x 1.8 cm. Tissue Description: Yellow, lobulated omental fat without gross lesions. Sections/Processi ng: Supervisor Salvage sections in 3 cassettes labeled N1-N3. O - Labeled/Fixative: Omentum #2, fresh. Quantity/Size: Single, 8.0 x 5.0 x 2.0 cm. Tissue Description: Yellow, lobulated omental fat without gross lesions. Sections/Processi ng: Supervisor Salvage sections in 3 cassettes labeled O1-O3. P [...] MD Verified: ??11/19/2020 15:30 ??Pathologist Performed at: ??-[facility] Dept. of Pathology, [place], [place] This intraoperative consultation should be interpreted [...] Mas Verified: ??11/19/2020 15:16 ??Pathologist Performed at: ??-[facility] Dept. of Pathology, [place], [place] This intraoperative consultation should be interpreted as a preliminary diagnosis pending review of the entire specimen and special studies, if any. A final Surgical Pathology report will follow this preliminary Frozen Section report(s). 12/09/2020 12:56 PM EDT [facility] OMENTUM STRUCTURE / Unknown 11/19/2020 2:46 [...] MD PATHOLOGY/CYTOLOGY O MIRZA Performing Organization Address City/[facility] Co de Phone Number [facility] [place] [address] * Specimen to Pathology (11/19/2020 2:46 PM EDT) AP Specimen 11/19/2020 2:46 PM EDT 11/19/2020 2:46 PM EDT Narrative [facility] - 11/19/2020 2:46 PM EDT Specimen requisition ordered. ??Separate Pathology report to follow Aletha Francois MD PATHOLOGY/CYTOLOGY O RDERACARLY Performing Organization Address [facility]/ZIP Co de Phone Number [facility] [place] [address] * Non-Cross Country Truck Driver Final Report (11/19/2020 2:26 PM EDT) Diagnosis Discussion [id number] ? Location: 1WST; 0116; A The signing pathologist has (i) examined the relevant preparation(s) for the specimen(s) and (ii) rendered or confirmed the diagnosis(es). . ? Non-Cross Country Truck Driver Final DIAGNOSIS Negative for Malignancy Electronically signed by: ?Gentry Cid MD Verified: ??11/20/2020 14:06 ??Cytopathologis t Performed at: ??-[facility] Dept. of Pathology, [place], [place] DISCUSSION Pelvic wash: Mesothelial cells and [...] Cell Block 1. 11/20/2020 2:06 PM EDT [facility] Pelvic Washing 11/19/2020 2: 26 PM EDT 11/19/2020 2:26 PM EDT Aletha Francois MD PATHOLOGY/CYTOLOGY O MIRZA [facility] [place] [address] * Cytopathology Non-Gynecological (11/19/2020 2:26 PM EDT) AP Specimen 11/19/2020 2:26 PM EDT 11/19/2020 2:26 PM EDT Narrative [facility] - 11/19/2020 2:26 PM EDT Specimen requisition ordered. ??Separate Pathology report to follow Aletha Francois MD PATHOLOGY/CYTOLOGY O RDERABLES Performing Organization Address [facility] Co de Phone Number [facility] [place] [address] * Urine culture Indwelling Catheter Urine (11/19/2020 2:10 PM EDT) Urine Culture No growth (Less than 1,000 cfu/ml). [facility] Indwelling Catheter Urine 11/19/2020 2:10 PM EDT 11/19/2020 2:50 PM EDT Narrative Resulting Agency Comment Spec In Lab Aletha Francois MD MICROBIOLOGY - GENER AL ORDERABLES Performing Organization Address [facility] Co de Phone Number [facility] [place] [address] * POCT Glucose (11/19/2020 11:15 AM EDT) Glucose, POC 92 65 - 199 mg/dL [facility] Comment: Supplemental ranges: <140 mg/dL before meals <180 mg/dL all other times of the day Blood 11/19/2020 11:1 5 AM EDT 11/19/2020 11:15 AM EDT Aletha Francois MD POINT OF CARE TEST O RDERABLES Performing Organization Address [facility] Co de Phone Number [facility] [place] [address] documented in this encounter Visit Diagnoses Not on filedocumented in this encounter Admitting Diagnoses Diagnosis Pelvic [...] Given 11/20/2020 9:50 PM EDT 600 mg HYDROmorphone (Dilaudid) (1 mg/mL) injection syringe 0.4 mg 0.4 mg, Intravenous, ONCE PRN, 1 dose, Starting on Mon11/20/20 at 1049, Until 11/21/20 at 1615, Pain, extreme breakthrough, Routine ondansetron (pf) (Zofran) (2 mg/mL) injection [...] Given 11/20/2020 8:18 PM EDT 10 mg prochlorperazine (Compazine) tablet 10 mg 10 [...] Sue Chase RN)1334 (Given - Provider: Liat Chin RN)1856 (Given - Provider: Liat Chin RN) 0000 (Not Given - Provider: Sue Chase RN - Reason: Patient/family refused)0535 (Given - Provider: Sue Chase RN)1223 (Given - Provider: Liat Chin RN) ceFAZolin (Ancef) 2 g in dextrose 5% 100 mL (2 x 1 g/50 mL premix bags) infusion (COMPLETED)(Linked Group 1) 2 g, Intravenous, ONCE, 1 dose, On Ange 11/19/20 at 1145, Administer over 30 Minutes, [facility] to OR Infuse over 30 minutes. Total dose of ceFAZolin 2 grams, administered using two ceFAZolin 1g/50mL IV bags. Infuse each ceFAZolin 1g/50mL bag over 30 minutes (100 ml/hr) for total infusion time of 60 minutes. On the MAY, document administration of first bag using New Bag (1 of 2) MAR action for dose of 1g. On the MAY, document administration of second bag using Next [...] Liat Chin RN)2150 (Given - Provider: Sue Chase RN) 0920 (Given - Provider: Ole Alberto RN)1223 (Given - Provider: Liat Chin RN) [...] RN) 0318 (Given - Provider: Sue Chase, RN)0952 (Given - Provider: Liat Chin, YVES)1634 (Given - Provider: Liat Chin RN)2149 (Given - Provider: Sue Chase RN) 0414 (Given - Provider: Sue Chase, RN)0921 (Given - Provider: Ole Alberto, YVES) metroNIDAZOLE (Flagyl) 500 mg in sodium chloride 0.9% 100 mL infusion (COMPLETED)(Linked Group 1) 500 mg, Intravenous, ONCE, 1 dose, On Ange 11/19/20 at 1145, Administer over 30 Minutes, [facility] to OR Infuse over 30 minutes., Day [...] Routine 0950 (Given - Provider: Liat Chin RN)2150 (Given - Provider: Sue Chase RN) 0920 (Given - Provider: Ole Alberto, YVES) sodium chloride 0.9 % (flush) (BD PosiFlush Normal Saline 0.9) flush 5 mL 5 mL, Intravenous, 2 TIMES DAILY, First dose on Mon11/20/20 at 0900, Until Discontinued, Routine 0953 (Given - Provider: Liat Chin, YVES)215 (Given - Provider: Sue Chase, YVES) 0920 (Given - Provider: Ole Alberto, YVES) Continuous Medication Order 11/19/2020 11/20/2020 11/21/2020 HYDROmorphone (Dilaudid) (1 mg/mL) in sodium chloride 0.9% 50 mL FARM OPERATOR infusion (CANCELED) Intravenous, FARM OPERATOR ONLY, Starting on Ange 11/19/20 at 1815, Until Mon11/20/20 at 0308, Recovery (Recovery-Hospital Unit) 1818 (New Syringe/Cartridge - Provider: Dalia Jimenez RN) HYDROmorphone (Dilaudid) (1 mg/mL) in sodium chloride 0.9% 50 mL FARM OPERATOR infusion (CANCELED) Intravenous, FARM OPERATOR ONLY, Starting on Mon11/20/20 at 0400, Until Mon11/20/20 at 1048, Recovery (Recovery-Hospital Unit) 0400 (Rate/Dose Change - Provider: Sue Chase RN - Comment: verified by Donna Navas RN)1114 (Stopped - Provider: Sailaja Dia RN) lactated ringers infusion (CANCELED) 1,000 mL, at 100 mL/hr, Intravenous, CONTINUOUS, Starting on Ange 11/19/20 at 1815, Until Mon11/20/20 at 0957 1812 (New Bag - Provider: aDlia Jimenez RN)2000 (Rate/Dose Verify - Provider: Stacey [...] Mon11/20/20 at 0249, Until 11/21/20 at 1615, Opioid Reversal, May repeat every 60 seconds to increase respiratory rate. DO NOT exceed 2 mg total dose. Per FARM OPERATOR order., Recovery (Recovery-Hospital Unit), Routine ondansetron (pf) [...] greater, Routine 0950 (Given - Provider: Liat Chin, RN)1402 (Given - Provider: Liat Chin, RN)2018 (Given - Provider: Sue Chase, RN) 0430 (Given - Provider: Sue Chase, RN)0920 (Given - Provider: Ole Alberto RN) [...] 11/20/20 at 0249, Until 11/21/20 at 1615, flush, [...] 11/19/20 at 1145, Administer over 30 Minutes, [facility]ists to OR Infuse over 30 minutes. Total dose of ceFAZolin 2 grams, administered using two ceFAZolin 1g/50mL IV bags. Infuse each ceFAZolin 1g/50mL bag over 30 minutes (100 ml/hr) for total infusion time of 60 minutes. On the MAY, document administration of first bag using New [...] 11/19/20 at 1145, Administer over 30 Minutes, [facility] to OR Infuse over 30 minutes., Day [...] Routine documented in this encounter Care Teams Auto Garage Attendant Relationship Specialty Start Date End Date Sue Espinosa PA [address] [place] [id number] PCP - General Family Medicine 11/09/20 02/14/22 documented as of this encounter
--- OUTSIDE RECORDS SUMMARY | 2024-01-02 18:42 | XMS_ITS | Encounter Summary ---
Author Organization [facility] Address [address] [place] [address] Care Team Providers Care Foreman/Project Manager Name Role Phone Unknown, Provider Primary Care Provider [phone] Encounter Details Date Type Department Care Team (Late st Contact Info) Description 09/06/2023 Lab Requisition [facility] Pathology & Laboratory Medicine - [facility] [address] [place] [address] Outr Resulting Lab, Provider Social History Tobacco [...] Date/Time Associated Diagnosis Comments CA 125 Routine 09/06/2023 13:40 EDT documented in this encounter Results * CA 125 (09/06/2023 13:40 EDT) CA 125 11 <30 U/mL 09/06/2023 22:52 EDT [facility] Comment: NOTE: Serum CA 125 concentration should not be interpreted as absolute evidence for the presence or absence of malignant disease. Assayed on Siemens ADVIA Centaur XPT using chemiluminescent technology. ??Values obtained by using different assay methods cannot be used interchangeably. Blood VENOUS BLOOD / Unknown 09/06/2023 13:40 EDT 09/06/2023 21:18 EDT Provider Outr Resulting Lab CHEMISTRY & BLOOD GAS ORDERABLES [facility] [address] [place] [address] documented in this encounter Visit Diagnoses Not on filedocumented in this encounter Care Teams Foreman/Project Manager Relationship Specialty Start Date End Date Unknown, Provider, PCP - General 02/15/18 documented as of this encounter
--- OUTSIDE RECORDS SUMMARY | 2024-01-02 18:42 | XMS_ITS | Encounter Summary ---
Author Organization [facility] Address [address] [place] [address] Care Team Providers Care Design Specialist Name Role Phone Unknown, Provider Primary Care Provider Encounter Details Date Type Department Care Team (Late st Contact Info) Description 01/26/2021 Lab Requisition [facility] Pathology & Laboratory Medicine - [facility] [address] [place] [address] Outr Resulting Lab, Provider Social History Tobacco [...] Date/Time Associated Diagnosis Comments CA 125 Routine 01/26/2021 10:05 EST documented in this encounter Results * CA 125 (01/26/2021 10:05 EST) CA 125 12 <30 U/mL 01/27/2021 10:[address] [facility] Comment: NOTE: Serum CA 125 concentration should not be interpreted as absolute evidence for the presence or absence of malignant disease. Assayed on Siemens ADVIA Centaur XPT using chemiluminescent technology. ??Values obtained by using different assay methods cannot be used interchangeably. Blood VENOUS BLOOD / Unknown 01/26/2021 10:05 EST 01/26/2021 21:15 EST Provider Outr Resulting Lab CHEMISTRY & BLOOD GAS ORDERABLES [facility] [address] [place] [address] documented in this encounter Visit Diagnoses Not on filedocumented in this encounter Care Teams Design Specialist Relationship Specialty Start Date End Date Unknown, Provider, PCP - General 02/15/18 documented as of this encounter
--- OUTSIDE RECORDS SUMMARY | 2024-01-02 18:42 | XMS_ITS | Encounter Summary ---
Author Organization [facility] Address [facility] [address] Care Team Providers Care Associate Brand Manager Name Role Phone Sue Espinosa Primary Care Provider [phone] Reason for Visit * Auth/Cert Specialty Diagnoses [...] Expiration Date Visits Re quested Visits Authorized [id number] 1 1 Encounter Details Date Type Department Care Team (Late st Contact Info) Description 11/19/2020 1:21 PM EDT Anesthesia Event [place] [address] Faustina Horta MD [facility] [place] [address] Venkatesh Pina MD [facility] [address] Anesthesia Record Procedure Summary Procedure Name Responsible Anesthesiologist Anesthesia Start Time Anesthesia Stop Time @LYMPHADENECTOMY, LIMITED FOR STAGING, RETROPERITONEAL (WRVU 11.38) (Abdomen) Faustina Horta MD 11/19/20 1321 11/19/20 1747 Events Date Time Event Comment 11/19/2020 1211 1321 AN Verify 1321 Start 1321 An Start Data 1327 An Induction 1331 An Intubation 1335 Anesthesia Ready 1405 Procedure Start 1659 Handoff Intra-procedure anesthesia care was transferred after review of the patient's history, current anesthetic/surgical status and procedural plan, anticipated issues and expected post-operative course (including disposition.) Rachelle Shields PATENT EXAMINER 1737 Extubation/LMA Out 1738 an stop data 1747 Recovery or ICU Handoff Breann ent care was transferred to the destination unit staff after review of the patient's medical history, current anesthetic/surgical status and plan, according to the Provider Handoff Checklist. 1747 Stop Meds Name Total Midazolam 2 mg fentaNYL 100 mcg IV Lidocaine 100 mg Propofol 200 mg Rocuronium 110 mg PHENYLephrine 320 mcg ePHEDrine 30 mg Ondansetron 8 mg Dexamethasone 8 mg Neostigmine 4 mg Glycopyrrolate 0.6 mg ceFAZolin (Ancef) 2 g in dex trose 5% 100 mL (2 x 1 g/50 mL premix bags) infusion 2 g metroNIDAZOLE (Flagyl) 500 mg in sodium chloride 0.9% 100 mL infusion 500 mg BUpivacaine 0.25% 60 mL Propofol INF 512.13 mg Dexmedetomidine 20 mcg ketorolac (Toradol) (30 mg/mL) injection 15 mg HYDROmorphone 0.4 mg Lactated Ringers 1,000 mL Lactated Ringers 2,000 mL * Agents Name O2 Air N2O Sevoflurane (et) * Blood No blood administrations on file. Lines, Drains, and Airways Type Details Placement Removal Incision 11/19/20; anterior; abdomen; midline 11/19/20 0000 by Jada Underwood, RN (RETIRED) Peripheral IV Line - Single Lumen 11/19/20; 1133; median cubital vein (antecubital fossa), left; ypsx-asf-[id number] catheter system; 20 gauge, 1 in length; Ricarda RN; appears comfortable, tolerated well; 0; 11/21/20; 1213 11/19/20 1133 by Elsa Bland RN 11/21/20 1213 by Liat Chin RN ETT Mask Ventilation: Ea sy (1); ETT Type: Cuffed; ETT Size: 7 mm; Mac Blade: 3; Notes: Asleep, Pre-O2, Stylette; Attempts: 1; Laryngoscopy Grade: 1; ETT Placement Verified By: Auscultation, Capnometry, Visual; Secured at Teeth: 22 cm; Inserted by: Rachelle Shields CRNA; Removal Date: 11/19/20; Removal Time: 173611/19/20 1331 by Rachelle Caballero CRNA 11/19/20 1737 by Margoth Godinez CRNA (RETIRED) Peripheral IV Line - Single Lumen 11/19/20; 1334; cephalic vein (lateral side of arm), right; uwod-gxp-wernxi catheter system; Anatomical Landmarks; MD Pina; no longer indicated, site symptomatic, catheter/device intact; 11/20/20; 2214 11/19/20 1334 by Rachelle Caballero CRNA 11/20/20 2214 by Joanna Deras RN NG/OG Tube 11/19/20; 1334; orogastric; right mouth; Taped; 11/19/20; 1706 11/19/20 1334 by Rachelle Caballero CRNA 11/19/20 1706 by Margoth Godinez CRNA Urethral Catheter 11/19/20; 1500; Physician order; indwelling double lumen catheter; 16; inserted at this facility; 1; 10; 10; none; leg bag to dependent drainage; 11/20/20; 1151 11/19/20 1500 by Jada Underwood RN 11/20/20 1151 by Liat Chin RN documented in this encounter Social History Tobacco Use Types Packs/Day Years Used Date Smoking Tobacco: Never Smokeless Tobacco: Never Alcohol Use Standard Drinks/Week Comments Never 0 (1 standard drink = 0.6 oz pur e alcohol) Sex and Gender Information Value Date Recorded Sex Assigned at Not on file Gender Identity Not on file Sexual Orientation Not on file documented as of this encounter OR Notes * Anesthesia Postprocedure Evaluation - Faustina Horta MD - 11/20/2020 11:11 AM EDT Department of Anesthesiology Post-procedure Note Patient: Dalia Mcfarlane Procedure Summary Date: 11/19/20 Room / Location: [facility] OR [address] [place] [address] MAIN OR Anesthesia Start: 1321 Anesthesia Stop: 1746 Procedures: @LYMPHADENECTOMY, LIMITED FOR STAGING, RETROPERITONEAL (WRVU 11.38) (N/A Abdomen) @HYSTERECTOMY, ECTOR, BSO, DEBULKING (WRVU 34.13) (N/A Abdomen) Diagnosis: (PELVIC MASS) Surgeons: Aletha Francois MD Responsible Provider: Faustina Horta MD Anesthesia Type: general ASA Status: 2 All Anesthesia Providers: Anesthesiologist: Venkatesh Pina MD; Kamar Harrell MD; Faustina Horta MD PATENT EXAMINER: Margoth Godinez CRNA; Rachelle Shields CRNA Vitals Value Taken Time BP 99/53 11/20/20 0100 Temp 37 ??C (98.6 ??F) 11/20/20 0000 Pulse 110 11/19/20 1954 Resp 18 11/20/20 0000 SpO2 90 % 11/20/20 0143 Pain Level 10 11/20/20 0046 Vitals shown include unvalidated device data. Patient Location: PACU/[facility] Level of Consciousness: Awake and Alert Pain Management: Satisfactory Analgesia PONV: None Cardiovascular Status: At Baseline and Hemodynamically Stable Respiratory Status: At Baseline and Room Air Postoperative Fluid Status: Intravascular EUvolemia Possible Anesthetic Complications: NONE apparent at time of evaluation Final Primary Anesthesia Type: General (The anesthetic type performed was the same as planned.) Comments: Needed dilaudid in recovery, TAP not covering everything FAUSTINA HORTA MD * Anesthesia Procedure Notes - Marley Nayak MD - 11/19/2020 1:42 PM EDTAssociated Order(s): Anesthesia Block Anesthesia Block Date/Time: 11/19/2020 1:35 PM Performed by: Adan Tucker DO Authorized by: Simon Gandara MD Start Time: 11/19/2020 1:35 PM End Time: 11/19/2020 1:40 PM Patient Location: Block Room Indication: Post-op Pain Control Post-op pain management at the request of surgeon. Block Type: TAP Laterality: Bilateral Position: Supine Prep: Chlorhexidine, patient draped and mask, cap, sterile gloves, hand hygeine Block Technique: SonoPlex 22 10 cm Ultrasound Guided: YES and in-plane Ultrasound Image Saved Ultrasound guidance was used to identify the targeted neuronal structure. Ultrasound was also used to identify needle position and to identify tissue (bone, muscle, and blood vessels) to prevent inadvertent intraneural or intravascular needle placement and injection. The spread of local anesthetic was confirmed with live ultrasound imaging.?? Single-Shot: Single-shot Local Anesthetic Volume(s) Injected for Nerve Block: BUpivacaine 0.25%, 60 mL Nerve Sensory/MotorTest: Events: no complications Staff: Resident/PATENT EXAMINER:: Adan Tucker DO Attending Physician:: Simon Gandara MD Notes: 30cc on each side * Anesthesia Preprocedure Evaluation - Venkatesh Pina MD - 11/19/2020 12:10 PM EDT Pre-Anesthesia Evaluation for: Dalia Mcfarlane a 65 y.o. female. Procedure(s): @EXPLORATORY LAPAROTOMY, WITH/WITHOUT BIOPSY(S) (WRVU 12.54) @HYSTERECTOMY, TOTAL ABD., W W/O BSO (WRVU 17.31) @LYMPHADENECTOMY, LIMITED FOR STAGING, RETROPERITONEAL (WRVU 11.38) Patient Active Problem List Diagnosis ??? Pelvic mass Past Medical History: Diagnosis Date ??? Chronic pain in abdomen ??? High blood pressure controlled with medication ??? Motion sickness pt states car sickness No past surgical history on file. Social History Tobacco Use ??? Smoking status: Never Smoker ??? Smokeless tobacco: Never Used Substance Use Topics ??? Alcohol use: Never Social History Substance and Sexual Activity Drug Use Never No Known Allergies Medications: MAR and/or home medications have been reviewed. Physical Exam: Preprocedure Vitals Current as of 11/19/20 1210 BP: 149/66 Pulse: 101 Resp: 18 SpO2: 97 Temp: 37.6 ??C (99.7 ??F) Height: 165.1 cm (5' 5) (11/19/20) Weight: 73.9 kg (163 lb) (11/19/20) BMI: 27.12 IBW: 57 kg (125 lb 10.6 oz) Last edited 11/19/20 1111 by PASTORA Airway Assessment: Mallampati: II TM distance: >3 FB Neck ROM: full Cardiovascular Assessment: system normal Pulmonary Assessment: pulmonary exam normal Dental Assessment: Misc Assessment: Last Filed Perioperative Cognitive Screening Value Time User AD8 Total Score: 0 11/13/2020 4:00 PM Abril Amato RN AD8 Informant: Other Informant 11/13/2020 4:00 PM Abril Amato RN Anesthesia Plan: ASA 2 general, with a(n) intravenous induction 65yo female presenting for exploratory laparotomy, hysterectomy No issues with prior anesthetics Appropriately npo Plan for GETA TAP block Region - Other Informed Consent: Anesthetic plan and risks discussed with patient. Use of blood products discussed with patient who consented to blood products. Plan discussed with PATENT EXAMINER. Anesthesia Screening documented in this encounter Miscellaneous Notes * Addendum Note - Simon Gandara MD - 12/17/2020 7:24 AM EDT Addendum created 12/17/20723 by Simon Gandara MD Attestation recorded in Intraprocedure, Flowsheet accepted, Intraprocedure Attestations filed * Addendum Note - Marley Nayak MD - 12/03/2020 10:41 AM EDT Addendum created 12/03/20 1041 by Marley Nayak MD Clinical Note Signed, Diagnosis association updated, Intraprocedure Blocks edited documented in this encounter Plan of Treatment Not on file documented as of this encounter Procedures Procedure Name Priority Date/Time Associated Diagnosis Comments ANESTHESIA BLOCK Routine 11/19/2020 1:35 PM EDT documented in this encounter Results * Anesthesia Block (11/19/2020 1:35 PM EDT) Narrative Marley Nayak MD - 11/19/2020 1:35 PM EDT Marley Nayak MD ? 12/03/2020 10:41 AM Anesthesia Block Date/Time: 11/19/2020 1:35 PM Performed by: Adan Tucker DO Authorized by: Simon Gandara MD Start Time: ??11/19/2020 1:35 PM End Time: ??11/19/2020 1:40 PM Patient Location: ??Block Room Indication: ??Post-op Pain Control Post-op pain management at the request of surgeon. ?? Block Type: ??TAP Laterality: ??Bilateral Position: ??Supine Prep: ??Chlorhexidine, patient draped and mask, cap, sterile gloves, hand hygeine Block Technique: ?? SonoPlex ?? 22 ?? 10 cm ??Ultrasound Guided: ??YES and in-plane ??Ultrasound Image Saved ?Ultrasound guidance was used to identify the targeted neuronal structure. Ultrasound was also used to identify needle position and to identify tissue (bone, muscle, and blood vessels) to prevent inadvertent intraneural or intravascular needle placement and injection. The spread of local anesthetic was confirmed with live ultrasound imaging.?Single-Shot: ??Single-shot Local Anesthetic Volume(s) Injected for Nerve Block: ?? BUpivacaine 0.25%, 60 mL Nerve Sensory/MotorTest: ??Events: no complications ?? Staff: ??Resident/PATENT EXAMINER:: ??Adan Tucker DO ??Attending Physician:: ??Simon Gandara MD Notes: ?? 30cc on each side Simon Gandara MD NETWORK DESKTOP SUPPORT SPECIALIST [facility] documented in this encounter Visit Diagnoses Not on filedocumented in this encounter Administered Medications Inactive Administered Medications - up to 3 most recent administrations Medication Order MAR Action Action Date Dose Rate Site BUpivacaine (Marcaine) (2.5 mg/mL) 0.25% bolus injection (Anesthesia) Epidural, Starting on Ange 11/19/20 at 1335, Until Ange 11/19/20 at 1335, Anesthesia Intra-op, Routine Given 11/19/2020 1:35 PM EDT 60 mLs ceFAZolin (Ancef) 2 g in dextrose 5% 100 mL (2 x 1 g/50 mL premix bags) infusion 2 g, Intravenous, ONCE, 1 dose, On Ange 11/19/20 at 1145, Administer over 30 Minutes, Roll Scale Man to OR Infuse over 30 minutes. Total [...] Procedure), Indication for (Active or Suspected): Prophylaxis Given 11/19/2020 1:43 PM EDT 2 g dexamethasone (Decadron) injection Intravenous, PRN, Starting on Ange 11/19/20 at 1701, Until Ange 11/19/20 at 1747, Anesthesia Intra-op, Routine Given 11/19/2020 5:01 PM EDT 8 mg dexmedetomidine (Precedex) (4 mcg/mL) bolus injection (Anesthsia) Intravenous, PRN, Starting on Ange 11/19/20 at 1444, Until Ange 11/19/20 at 1747, Anesthesia Intra-op, Routine Given 11/19/2020 3:50 PM EDT 4 mcg Given 11/19/2020 3:32 PM EDT 4 mcg Given 11/19/2020 3:05 PM EDT 4 mcg ePHEDrine sulfate (5 mg/mL) multi-dose injection Intravenous, PRN, Starting on Ange 11/19/20 at 1424, Until Ange 11/19/20 at 1747, Anesthesia Intra-op, Routine Given 11/19/2020 4:11 PM EDT 5 mg Given 11/19/2020 3:17 PM EDT 10 mg Given 11/19/2020 2:35 PM EDT 10 mg fentaNYL (pf) (50 mcg/mL) multi-dose injection Intravenous, PRN, Starting on Ange 11/19/20 at 1327, Until Ange 11/19/20 at 1747, Anesthesia Intra-op, Routine Given 11/19/2020 3:51 PM EDT 25 mcg Given 11/19/2020 2:44 PM EDT 25 mcg Given 11/19/2020 1:27 PM EDT 50 mcg glycopyrrolate (Robinul) (0.2 mg/mL) multi-dose injection Intravenous, PRN, Starting on Ange 11/19/20 at 1711, Until Ange 11/19/20 at 1747, Anesthesia Intra-op, Routine Given 11/19/2020 5:11 PM EDT 0.6 mg HYDROmorphone (Dilaudid) (2 mg/mL) multi-dose injection solution Intravenous, PRN, Starting on Ange 11/19/20 at 1718, Until Ange 11/19/20 at 1747, Anesthesia Intra-op, Routine Given 11/19/2020 5:21 PM EDT 0.2 mg Given 11/19/2020 5:18 PM EDT 0.2 mg ketorolac (Toradol) (30 mg/mL) injection Intravenous, PRN, Starting on Ange 11/19/20 at 1711, Until Ange 11/19/20 at 1747, Anesthesia Intra-op, Routine Given 11/19/2020 5:11 PM EDT 15 mg lactated ringers infusion Intravenous, CONTINUOUS PRN, Starting on Ange 11/19/20 at 1321, Until Ange 11/19/20 at 1747, Anesthesia Intra-op New Bag 11/19/2020 5:14 PM EDT New Bag 11/19/2020 1:21 PM EDT lactated ringers infusion Intravenous, CONTINUOUS PRN, Starting on Ange 11/19/20 at 1334, Until Ange 11/19/20 at 1747, Anesthesia Intra-op New Bag 11/19/2020 5:04 PM EDT New Bag 11/19/2020 1:34 PM EDT lidocaine (pf) (Xylocaine) (20 mg/mL) 2% injection syringe Intravenous, PRN, Starting on Ange 11/19/20 at 1327, Until Ange 11/19/20 at 1747, Anesthesia Intra-op, Routine Given 11/19/2020 1:27 PM EDT 100 mg metroNIDAZOLE (Flagyl) 500 mg in sodium chloride 0.9% 100 mL infusion 500 mg, Intravenous, ONCE, 1 dose, On Ange 11/19/20 at 1145, Administer over 30 Minutes, Roll Scale Man to OR Infuse over 30 minutes., Day of Surgery (Day of Procedure), Indication for (Active or Suspected): Prophylaxis Given 11/19/2020 1:50 PM EDT 500 mg midazolam (pf) (Versed) (1 mg/mL) multi-dose injection Intravenous, PRN, Starting on Ange 11/19/20 at 1323, Until Ange 11/19/20 at 1747, Anesthesia Intra-op, Routine Given 11/19/2020 1:23 PM EDT 2 mg neostigmine (Bloxiver) (1 mg/mL) injection Intravenous, PRN, Starting on Ange 11/19/20 at 1711, Until Ange 11/19/20 at 1747, Anesthesia Intra-op, Routine Given 11/19/2020 5:11 PM EDT 4 mg ondansetron (pf) (Zofran) (2 mg/mL) injection Intravenous, PRN, Starting on Ange 11/19/20 at 1701, Until Ange 11/19/20 at 1747, Anesthesia Intra-op, Routine Given 11/19/2020 5:26 PM EDT 4 mg Given 11/19/2020 5:01 PM EDT 4 mg PHENYLephrine in NS (PF) (JANET-SYNEPHRINE) 0.8 mg/10 mL (80 mcg/mL) multi-dose injection Syrg Intravenous, PRN, Starting on Ange 11/19/20 at 1332, Until Ange 11/19/20 at 1747, Anesthesia Intra-op, Routine Given 11/19/2020 2:22 PM EDT 80 mcg Given 11/19/2020 1:35 PM EDT 80 mcg Given 11/19/2020 1:33 PM EDT 80 mcg propofoL (Diprivan) 10 mg/mL bolus injection (Anesthesia) Intravenous, PRN, Starting on Ange 11/19/20 at 1327, Until Ange 11/19/20 at 1747, Anesthesia Intra-op Given 11/19/2020 1:27 PM EDT 200 mg propofoL (Diprivan) infusion Intravenous, CONTINUOUS PRN, Starting on Ange 11/19/20 at 1334, Until Ange 11/19/20 at 1747, Anesthesia Intra-op, Routine Rate/Dose Change 11/19/2020 2:22 PM EDT 30 mcg/kg/min 13.302 mL/hr Rate/Dose Change 11/19/2020 1:55 PM EDT 50 mcg/kg/min 22.1 7 mL/hr New Bag 11/19/2020 1:34 PM EDT 30 mcg/kg/min 13.302 mL/ hr rocuronium (Zemuron) (10 mg/mL) multi-dose injection Intravenous, PRN, Starting on Ange 11/19/20 at 1327, Until Ange 11/19/20 at 1747, Anesthesia Intra-op, Routine Given 11/19/2020 4:36 PM EDT 10 mg Given 11/19/2020 3:50 PM EDT 10 mg Given 11/19/2020 3:29 PM EDT 10 mg documented in this encounter Care Teams Associate Brand Manager Relationship Specialty Start Date End Date Sue Espinosa PA [address] [place] [id number] PCP - General Family Medicine 11/09/20 02/14/22 documented as of this encounter
--- OUTSIDE RECORDS SUMMARY | 2024-01-02 18:42 | XMS_ITS | Encounter Summary ---
Author Organization [facility] Address [address] [place] [address] Care Team Providers Care Music Rehabilitation Therapist Name Role Phone Unknown, Provider Primary Care Provider [phone] Encounter Details Date Type Department Care Team (Late st Contact Info) Description 09/28/2022 Lab Requisition [facility] Pathology & Laboratory Medicine - [facility] [address] [place] [address] Outr Resulting Lab, Provider Social History Tobacco [...] Date/Time Associated Diagnosis Comments CA 125 Routine 09/28/2022 8:25 EDT HOMOCYSTEINE Routine 09/28/2022 8:25 EDT documented in this encounter Results * HOMOCYSTEINE (09/28/2022 8:25 EDT) Homocysteine 10.0 5.0 - 13.9 umol/L 09/30/2022 10:34 EDT [facility] Blood VENOUS BLOOD / Unknown 09/28/2022 8:25 EDT 09/28/2022 17:47 EDT Narrative [facility] - 09/30/2022 10:34 EDT Reference range may not apply to non-fasting samples. ??It is not recommended that EDTA plasma and serum from the same patient be used interchangeably. ??Serum concentrations have been observed to be up to 10% higher than EDTA plasma. Reference range may not apply to serum results. Provider Outr Resulting Lab CHEMISTRY & BLOOD GAS ORDERABLES Performing Organization Address City/[facility] Co de Phone Number [facility] [address] [place] [address] * CA 125 (09/28/2022 8:25 EDT) CA 125 12 <30 U/mL 09/29/2022 9:10 EDT [facility] Comment: NOTE: Serum CA 125 concentration should not be interpreted as absolute evidence for the presence or absence of malignant disease. Assayed on Ubitricityaur XPT using chemiluminescent technology. ??Values obtained by using different assay methods cannot be used interchangeably. Blood VENOUS BLOOD / Unknown 09/28/2022 8:25 EDT 09/28/2022 17:47 EDT Provider Outr Resulting Lab CHEMISTRY & BLOOD GAS ORDERABLES Performing Organization Address [facility] Co de Phone Number [facility] [address] [place] [address] documented in this encounter Visit Diagnoses Not on filedocumented in this encounter Care Teams Music Rehabilitation Therapist Relationship Specialty Start Date End Date Unknown, Provider, PCP - General 02/15/18 documented as of this encounter
--- OUTSIDE RECORDS SUMMARY | 2024-01-02 18:42 | XMS_ITS | Encounter Summary ---
Author Organization [facility] Address [address] [place] [address] Care Team Providers Care Automatic Corn Grinder Operator Name Role Phone Unknown, Provider Primary Care Provider [phone] Encounter Details Date Type Department Care Team (Late st Contact Info) Description 02/16/2021 Lab Requisition [facility] Pathology & Laboratory Medicine - [facility] [address] [place] [address] Outr Resulting Lab, Provider Social History Tobacco [...] Date/Time Associated Diagnosis Comments CA 125 Routine 02/16/2021 9:55 EST documented in this encounter Results * CA 125 (02/16/2021 9:55 EST) CA 125 13 <30 U/mL 02/17/2021 10:24 EST [facility] Comment: NOTE: Serum CA 125 concentration should not be interpreted as absolute evidence for the presence or absence of malignant disease. Assayed on Siemens ADVIA Centaur XPT using chemiluminescent technology. ??Values obtained by using different assay methods cannot be used interchangeably. Blood VENOUS BLOOD / Unknown 02/16/2021 9:55 EST 02/16/2021 16:26 EST Provider Outr Resulting Lab CHEMISTRY & BLOOD GAS ORDERABLES [facility] [address] [place] [address] documented in this encounter Visit Diagnoses Not on filedocumented in this encounter Care Teams Automatic Corn Grinder Operator Relationship Specialty Start Date End Date Unknown, Provider, PCP - General 02/15/18 documented as of this encounter
--- OUTSIDE RECORDS SUMMARY | 2024-01-02 18:42 | XMS_ITS | Encounter Summary ---
Author Organization [facility] Address [address] [place] [address] Care Team Providers Care Sales Planning Coordinator Name Role Phone Unknown, Provider Primary Care Provider [phone] Encounter Details Date Type Department Care Team (Late st Contact Info) Description 11/11/2021 Lab Requisition [facility] Pathology & Laboratory Medicine - [facility] [address] [place] [address] Outr Resulting Lab, Provider Social History Tobacco [...] Procedure Name Priority Date/Time Associated Diagnosis Comments SPEP WITH IMMUNOTYPING PERFORMABLE Today 11/11/2021 11:30 EDT CA 125 Routine 11/11/2021 11:30 EDT SPEP WITH IMMUNOTYPING Routine 11/11/2021 11:30 EDT PROTEIN, TOTAL Today 11/11/2021 11:30 EDT HOMOCYSTEINE Routine 11/11/2021 11:30 EDT documented in this encounter Results * (ABNORMAL) SPEP WITH IMMUNOTYPING PERFORMABLE (11/11/2021 11:30 EDT) Albumin % 60.5 55.8 - 66.1 % 11/12/2021 14:25 [facility] Albumin g/dL 4.1 3.6 - 5.2 g/dL 11/12/2021 14:25 [facility] Alpha-1 % 5.3(H) 2.9 - 4.9 % 11/12/2021 14:25 [facility] Alpha-1 g/dL 0.40 0.15 - 0.40 g/dL 11/12/2021 14:25 [facility] Alpha-2 % 10.8 7.1 - 11.8 % 11/12/2021 14:25 [facility] Alpha-2 g/dL 0.70 0.50 - 1.00 g/dL 11/12/2021 14:25 [facility] Beta % 11.7 8.4 - 13.1 % 11/12/2021 14:25 [facility] Beta g/dL 0.80 0.60 - 1.20 g/dL 11/12/2021 14:25 [facility] Gamma % 11.7 11.1 - 18.8 % 11/12/2021 14:25 [facility] Gamma g/dL 0.80 0.60 - 1.60 g/dL 11/12/2021 14:25 [facility] SPEP Comment No apparent monoclonal protein seen on serum electrophoresis 11/12/2021 14:25 [facility] Comment:See scanned/suppleme ntary report. Immunotyping , Serum Current Interpretation: Negative for monoclonal immunoglobulins. Reviewed by: Akbar Danielson MD 11/12/2021 1340 11/12/2021 14:25 [facility] Total Protein 6.7 6.3 - 8.2 g/dL 11/12/2021 14:25 [facility] Blood VENOUS BLOOD / Unknown 11/11/2021 11:30 EDT 11/11/2021 21:25 EDT Provider Outr Resulting Lab CHEMISTRY & BLOOD GAS ORDERABLES Performing Organization Address [facility] de Phone Number [facility] [address] [place] [address] * PROTEIN, TOTAL (11/11/2021 11:30 EDT) Blood VENOUS BLOOD / Unknown 11/11/2021 11:30 EDT 11/11/2021 21:25 EDT Provider Outr Resulting Lab CHEMISTRY & BLOOD GAS ORDERABLES Performing Organization Address [facility] de Phone Number [facility] [address] [place] [address] * (ABNORMAL) HOMOCYSTEINE (11/11/2021 11:30 EDT) Pathologist [facility] Homocysteine 26.0(H) 5.0 - 13.9 umol/L 11/12/2021 7:53 EDT [facility] Comment:Results may be false ly elevated if sample is not collected on ice or is not removed from cells within 1 hour of collection. Blood VENOUS BLOOD / Unknown 11/11/2021 11:30 EDT 11/11/2021 21:25 EDT Narrative [facility] - 11/12/2021 7:53 EDT Reference range may not apply to non-fasting samples. ??It is not recommended that EDTA plasma and serum from the same patient be used interchangeably. ??Serum concentrations have been observed to be up to 10% higher than EDTA plasma. Reference range may not apply to serum results. Provider Outr Resulting Lab CHEMISTRY & BLOOD GAS ORDERABLES Performing Organization Address [facility] de Phone Number [facility] [address] [place] [address] * CA 125 (11/11/2021 11:30 EDT) Pathologist [facility] CA 125 6 <30 U/mL 11/12/2021 8:24 EDT [facility] Comment: NOTE: Serum CA 125 concentration should not be interpreted as absolute evidence for the presence or absence of malignant disease. Assayed on Siemens ADVIA Protochipsaur XPT using chemiluminescent technology. ??Values obtained by using different assay methods cannot be used interchangeably. Blood VENOUS BLOOD / Unknown 11/11/2021 11:30 EDT 11/11/2021 21:25 EDT Provider Outr Resulting Lab CHEMISTRY & BLOOD GAS ORDERABLES [facility] [address] [place] [address] documented in this encounter Visit Diagnoses Not on filedocumented in this encounter Care Teams Sales Planning Coordinator Relationship Specialty Start Date End Date Unknown, Provider, PCP - General 02/15/18 documented as of this encounter
--- OUTSIDE RECORDS SUMMARY | 2024-01-02 18:42 | XMS_ITS | Clinical Summary ---
Author Organization [facility] Address [address] [place] [address] Care Team Providers Care Reconciliation Coordinator Name Role Phone Unknown, Provider Primary Care Provider [phone] Allergies Active Allergy Reactions Criticality Noted Date Comments Fish Containing Products Nausea And Vomiting Pork Derived (Porcine) Nausea And Vomiting 10/11 Medications Medication Sig Dispensed Refills Start Date End Date Status lisinopriL (PRINIVIL) 5 mg tablet 1 tab(s) orally once a day Active gabapentin (NEURONTIN) 600 mg tablet 1 tab(s) orally 4 times a day Active Hydrocodone-Acetaminop hen 10-325 mg/15 mL(15 mL) solution 1 tab(s) orally every 6 hours Active Social History Tobacco Use Types Packs/Day Years Used Date Smoking Tobacco: Never Smokeless Tobacco: Never Interpersonal Safety Answer Date Record ed Physically Hurt Never 10/27/2019 Verbally Threaten Not on file 10/27/2019 Sex and Gender Information Value Date Recorded Sex Assigned at Not on file Gender Identity Not on file Sexual Orientation Not on file Obstetrics History Last Filed Vital Signs Vital Sign Reading Time Taken Comments Blood Pressure - - Pulse 100 10/27/2019 1421 EDT Temperature 36.9 ??C (98.5 ??F) 10/27/2019 1421 EDT Respiratory Rate - - Oxygen Saturation 98% 10/27/2019 1421 EDT Inhaled Oxygen Concentration - - Weight - - Height - - Body Mass Index - - Plan of Treatment Health Maintenance Due Date Last Done Comments Hepatitis C Screen 1955 RSV Immunization ( o r 60+ Years) (1 - 1-dose 60+ series) 2015 Fall Risk Screening 07/23/2020 COVID-19 Vaccine (2022-24 season) 2022 Care Teams Reconciliation Coordinator Relationship Specialty Start Date End Date Unknown, Provider, PCP - General 02/15/18
--- OUTSIDE RECORDS SUMMARY | 2024-01-02 18:42 | XMS_ITS | Encounter Summary ---
Author Organization [facility] [place] [address] Care Team Providers Care Catcher Filter Tip Name Role Phone Unavailable Primary Care Provider Unavailabl e Encounter Details Date Type Department Care Team (Late st Contact Info) Description 11/06/2020 12:50 PM EDT Ancillary Procedure Radiology Library at [facility] [place] [id number] Aletha Francois MD [facility] OBSTETRICS AND [place]YN[place] [address] Social History Tobacco Use Types Packs/Day Years Used Date Smoking Tobacco: Never Assessed Sex and Gender Information Value Date Recorded Sex Assigned at Not on file Gender Identity Not on file Sexual Orientation Not on file documented as of this encounter Plan of Treatment Not on file documented as of this encounter Procedures Procedure Name Priority Date/Time Associated Diagnosis Comments FILM LIBRARY STORAGE ONLY CT ABDOMEN AND PELVIS Routine 11/06/2020 12:47 PM EDT documented in this encounter Results * Film Library- Storage Only CT Abdomen & Pelvis (11/06/2020 12:47 PM EDT) Narrative RAD - 11/06/2020 12:47 PM EDT This exam is auto-finalizing. It's purpose is for storage only. Aletha Francois MD IMG FILM LIBRARY ORD ERABLES [facility] [place] [place] documented in this encounter Visit Diagnoses Not on filedocumented in this encounter
--- OUTSIDE RECORDS SUMMARY | 2024-01-02 18:42 | XMS_ITS | Referral Summary ---
Author Organization [facility] Address [address] [place] [address] Care Team Providers Care Waiter/Waitress Economy Class Name Role Phone Unknown, Provider Primary Care Provider [phone] Allergies Active Allergy Reactions Criticality Noted Date [...] Mass Index - - Plan of Treatment Not on file Care Teams Waiter/Waitress Economy Class Relationship Specialty Start Date End Date Unknown, Provider, PCP - General 02/15/18
--- OUTSIDE RECORDS SUMMARY | 2024-01-02 18:42 | XMS_ITS | Encounter Summary ---
Author Organization [facility] [place] [address] Care Team Providers Care Cigarette Making Examiner Name Role Phone Unavailable Primary Care Provider Unavailabl e Encounter Details Date Type Department Care Team (Late st Contact Info) Description 11/06/2020 12:55 PM EDT Ancillary Procedure Radiology Library at [facility] [place] [id number] Aletha Francois MD [facility] OBSTETRICS [place] [address] Social History Tobacco Use Types Packs/Day Years [...] Associated Diagnosis Comments FILM LIBRARY STORAGE ONLY ULTRASOUND STUDY Routine 11/06/2020 12:48 PM EDT documented in this encounter Results * Film Library- Storage Only Ultrasound Study (11/06/2020 12:48 PM EDT) Narrative RAD - 11/06/2020 12:48 PM EDT This exam is auto-finalizing. It's purpose is for storage only. Aletha Francois MD IMG FILM LIBRARY ORD ERABLES [facility] [place], [place] documented in this encounter Visit Diagnoses Not on filedocumented in this encounter
--- OUTSIDE RECORDS SUMMARY | 2024-01-02 18:42 | XMS_ITS | Encounter Summary ---
Author Organization [facility] Address [address] [place] [address] Care Team Providers Care Copy Cutter Name Role Phone Unknown, Provider Primary Care Provider Encounter Details Date Type Department Care Team (Late st Contact Info) Description 12/16/2022 Lab Requisition [facility] Pathology & Laboratory Medicine - [facility] [address] [place] [address] Outr Resulting Lab, Provider Social History Tobacco [...] Procedure Name Priority Date/Time Associated Diagnosis Comments FECAL BACTERIAL PATHOGENS BY PCR Routine 12/16/2022 11:45 EDT OVA/PARASITE EXAM Routine 12/16/2022 11: 45 EDT documented in this encounter Results * FECAL BACTERIAL PATHOGENS BY PCR (12/16/2022 11:45 EDT) Salmonella PCR Negative Negative 12/17/2022 10:56 EDT [facility] Shigella/Enteroin vasive E. coli Negative Negative 12/17/2022 10:56 EDT [facility] HN LAB CAMPYLOBACTER PCR Negative Negative 12/17/2022 10:56 EDT [facility] Shiga Toxin PCR Negative Negative 10:56 EDT [facility] Feces SPECIMEN FROM RECTUM / Unknown 12/16/2022 11:45 EDT 12/16/2022 23:11 EDT Provider Outr Resulting Lab MICROBIOLOGY - GENERAL ORDERABLES Performing Organization Address City/[facility] Co de Phone Number [facility] [address] [place] [address] * OVA/PARASITE EXAM (12/16/2022 11:45 EDT) Parasite No ova and parasites seen. 12/19/2022 13:46 EDT [facility] Feces SPECIMEN FROM RECTUM / Unknown 12/16/2022 11:45 EDT 12/16/2022 23:11 EDT Narrative [facility] - 12/19/2022 13:46 EDT (If Cryptosporidium, Cyclospora, or Microsporidium are suspected, specific tests must be requested.) Single negative specimen does not rule out the possibility of a parasitic infection. Provider Outr Resulting Lab MICROBIOLOGY - GENERAL ORDERABLES Performing Organization Address City/[facility] Co de Phone Number [facility] [address] [place] [address] documented in this encounter Visit Diagnoses Not on filedocumented in this encounter Care Teams Copy Cutter Relationship Specialty Start Date End Date Unknown, Provider, PCP - General 02/15/18 documented as of this encounter
--- OUTSIDE RECORDS SUMMARY | 2024-01-02 18:42 | XMS_ITS | Encounter Summary ---
Author Organization [facility] Address [address] [place] [address] Care Team Providers Care Paint Spray Inspector Name Role Phone Unknown, Provider Primary Care Provider Encounter Details Date Type Department Care Team (Late st Contact Info) Description 03/30/2021 Lab Requisition [facility] Pathology & Laboratory Medicine - [facility] [address] [place] [address] Outr Resulting Lab, Provider Social History Tobacco [...] Date/Time Associated Diagnosis Comments CA 125 Routine 03/30/2021 10:30 EST documented in this encounter Results * CA 125 (03/30/2021 10:30 EST) CA 125 15 <30 U/mL 03/31/2021 11:20 EST [facility] Comment: NOTE: Serum CA 125 concentration should not be interpreted as absolute evidence for the presence or absence of malignant disease. Assayed on Siemens ADVIA Centaur XPT using chemiluminescent technology. ??Values obtained by using different assay methods cannot be used interchangeably. Blood VENOUS BLOOD / Unknown 03/30/2021 10:30 EST 03/30/2021 16:11 EST Provider Outr Resulting Lab CHEMISTRY & BLOOD GAS ORDERABLES [facility] [address] [place] [address] documented in this encounter Visit Diagnoses Not on filedocumented in this encounter Care Teams Paint Spray Inspector Relationship Specialty Start Date End Date Unknown, Provider, PCP - General 02/15/18 documented as of this encounter
--- OUTSIDE RECORDS SUMMARY | 2024-01-02 18:42 | XMS_ITS | Encounter Summary ---
Author Organization [facility] Address [address] [place] [address] Care Team Providers Care Patient Scheduler Name Role Phone Unknown, Provider Primary Care Provider [phone] Encounter Details Date Type Department Care Team (Late st Contact Info) Description 03/22/2021 Lab Requisition [facility] Pathology & Laboratory Medicine - [facility] [address] [place] [address] Outr Resulting Lab, Provider Social History Tobacco [...] Date/Time Associated Diagnosis Comments CA 125 Routine 03/22/2021 10:30 EST documented in this encounter Results * CA 125 (03/22/2021 10:30 EST) CA 125 14 <30 U/mL 03/23/2021 11:30 EST [facility] Comment: NOTE: Serum CA 125 concentration should not be interpreted as absolute evidence for the presence or absence of malignant disease. Assayed on Siemens ADVIA Centaur XPT using chemiluminescent technology. ??Values obtained by using different assay methods cannot be used interchangeably. Blood VENOUS BLOOD / Unknown 03/22/2021 10:30 EST 03/22/2021 16:30 EST Provider Outr Resulting Lab CHEMISTRY & BLOOD GAS ORDERABLES [facility] [address] [place] [address] documented in this encounter Visit Diagnoses Not on filedocumented in this encounter Care Teams Patient Scheduler Relationship Specialty Start Date End Date Unknown, Provider, PCP - General 02/15/18 documented as of this encounter
--- OUTSIDE RECORDS SUMMARY | 2024-01-02 18:42 | XMS_ITS | Encounter Summary ---
Author Organization [facility] Address [address] [place] [address] Care Team Providers Care Head Of Advertising Name Role Phone Unknown, Provider Primary Care Provider Reason for Visit * Reason Onset Date Comments Results 10/30/2019 Encounter Details Date Type Department Care Team (Late st Contact Info) Description 10/30/2019 Telephone [facility] [address] [place] [address] Ann-Marie Hill, PALLAVI [address] [place] [id number] Results Social History Tobacco Use Types Packs/Day Years [...] encounter Miscellaneous Notes * Telephone Encounter - Parisa Parker RN - 10/30/2019 0857 EDT Patient notified of lab results on 10/30/19. Patient denies any additional questions at this time. PARISA PARKER RN 10/30/19 8:58 * Telephone Encounter - Ann-Marie Hill - 10/30/2019 0840 EDT Please call patient and let her know COVID19 testing is neg. The coronavirus testing came back negative. There are many other common cold or flu like illness int community. If you have already received a diagnosis determined by your healthcare provider, please follow their advice. If your symptoms worsen please call your PCP office for evaluation. Let them know your testing was negative. We advise: ? Stay home, get rest, and hydrate. ? Take OTC pain relievers, fever reducers, decongestants or cough medicine to manage symptoms. (check with PCP first if you have chronic health conditions). ? Avoid close contact with people at home ( kissing, hugging, shaking hands) ? Cover your coughs and sneezes with a tissue. ? Clean your hands often either with soap and water for 20 seconds or an alcohol-based hand skidder runner that contains at least 60% alcohol. ? Clean high-touch surfaces daily (counter, tables, doorknobs, toilet, computer, etc) Please contact your employer about returning to work. Generally we recommend you stay home until your symptoms have improved AND you are fever-free for 72 hours OR at least 7 days have passed since your symptoms first appeared. documented in this encounter Plan of Treatment Not on file documented as of this encounter Visit Diagnoses Not on filedocumented in this encounter Care Teams Head Of Advertising Relationship Specialty Start Date End Date Unknown, Provider, PCP - General 02/15/18 documented as of this encounter
--- OUTSIDE RECORDS SUMMARY | 2024-01-02 18:42 | XMS_ITS | Encounter Summary ---
Author Organization [facility] Address [address] [place] [address] Care Team Providers Care Food Order Expediter Name Role Phone Unknown, Provider Primary Care Provider Encounter Details Date Type Department Care Team (Late st Contact Info) Description 05/05/2023 Lab Requisition [facility] Pathology & Laboratory Medicine - [facility] [address] [place] [address] Outr Resulting Lab, Provider Social History Tobacco [...] Date/Time Associated Diagnosis Comments CA 125 Routine 05/05/2023 11:10 EST documented in this encounter Results * CA 125 (05/05/2023 11:10 EST) CA 125 24 <30 U/mL 05/05/2023 18:50 EST [facility] Comment: NOTE: Serum CA 125 concentration should not be interpreted as absolute evidence for the presence or absence of malignant disease. Assayed on Siemens ADVIA Centaur XPT using chemiluminescent technology. ??Values obtained by using different assay methods cannot be used interchangeably. Blood VENOUS BLOOD / Unknown 05/05/2023 11:10 EST 05/05/2023 17:11 EST Provider Outr Resulting Lab CHEMISTRY & BLOOD GAS ORDERABLES [facility] [address] [place] [address] documented in this encounter Visit Diagnoses Not on filedocumented in this encounter Care Teams Food Order Expediter Relationship Specialty Start Date End Date Unknown, Provider, PCP - General 02/15/18 documented as of this encounter
--- OUTSIDE RECORDS SUMMARY | 2024-01-02 18:42 | XMS_ITS | Encounter Summary ---
Author Organization [facility] Address [address] [place] [address] Care Team Providers Care Motorcycle Designer Name Role Phone Unknown, Provider Primary Care Provider Encounter Details Date Type Department Care Team (Late st Contact Info) Description 10/27/2019 Lab Requisition [facility] Pathology & Laboratory Medicine - [facility] [address] [place] [address] Outr Resulting Lab, Provider Social History Tobacco [...] Procedure Name Priority Date/Time Associated Diagnosis Comments DO NOT ORDER STANDALONE - BROAD COVID TEST Today 10/27/2019 0:00 EDT COVID-19 TESTING Routine 10/27/2019 0:00 EDT documented in this encounter Results * DO NOT ORDER STANDALONE - BROAD COVID TEST (10/27/2019 0:00 EDT) COVID-19 rt-PCR Result NEGATIVE Negative 10/29/2019 11:36 EDT [facility] Comment: 2019-novel Coronavirus (2019-nCoV) not detected by the qRT-PCR assay. Consider testing for other respiratory viruses or re-collecting for 2019-nCoV testing. Note: Optimum timing for peak viral levels during infections caused by 2019-nCoV have not been determined. Collection of multiple specimens from the same patient may be necessary to detect the virus. Limitations Positive results are indicative of active infection with SARS-CoV-2 but do not rule out bacterial infection or co-infection with other viruses. The agent detected may not be the definite cause of disease. In addition, detection of viral RNA may not indicate the presence of infectious virus or that SARS-CoV-2 is the causative agent for clinical symptoms. Negative results do not preclude SARS-CoV-2 infection and should not be used as the sole basis for patient management decisions. Negative results must be combined with clinical observations, patient history, and epidemiological information. False negative results may also occur if amplification inhibitors are present in the specimen or if inadequate numbers of organisms are present in the specimen. Optimum specimen types and timing for peak viral levels during infections caused by SARS-CoV-2 have not been fully determined. Collection of multiple specimens (types and time points) from the same patient may be necessary to detect the virus. The test was validated for use with upper respiratory specimens obtained via nasopharyngeal or oropharyngeal swabs in VTM, UTM, M4, M5, M6, saline, and MTM media. The performance of this test has not been established for other specimens. Specimens collected using other FDA recommended Specimen Collection Materials listed in the FDA COVID-19 Diagnostic [employer] communication (June 06, 2019) are processed with the caveat that they were not all validated for use with this test and the result must be interpreted in this context. Furthermore, a false negative results may occur if a specimen is improperly collected, transported or handled. If the virus mutates in the RT-PCR target region, SARS-CoV-2 may not be detected or may be detected less predictably. Inhibitors or other types of interference may produce a false negative result. An interference study evaluating the effect of common cold medications was not performed. This test is not FDA-cleared but its performance characteristics were established by our CLIA-certified, CAP-accredited, high complexity laboratory in accordance with CLIA regulations, [employer] (CAP) guidelines (May 30, 2019), and FDA guidance (May 11, 2019). This test is only for use under the Food and Drug Administration's Emergency Use Authorization. Swab ENTIRE NASOPHARYNX / Unknown 10/27/2019 10/28/2019 12:45 EDT Provider Outr Resulting Lab MICROBIOLOGY - GENERAL ORDERABLES [facility] [place] * COVID-19 TESTING (10/27/2019 0:00 EDT) COVID-19 rt-PCR Result NEGATIVE Negative 10/29/2019 12:34 EDT [facility] Comment: 2019-novel Coronavirus (2019-nCoV) not detected by the qRT-PCR assay. Consider testing for other respiratory viruses or re-collecting for 2019-nCoV testing. Note: Optimum timing for peak viral levels during infections caused by 2019-nCoV have not been determined. Collection of multiple specimens from the same patient may be necessary to detect the virus. Limitations Positive results are indicative of active infection with SARS-CoV-2 but do not rule out bacterial infection or co-infection with other viruses. The agent detected may not be the definite cause of disease. In addition, detection of viral RNA may not indicate the presence of infectious virus or that SARS-CoV-2 is the causative agent for clinical symptoms. Negative results do not preclude SARS-CoV-2 infection and should not be used as the sole basis for patient management decisions. Negative results must be combined with clinical observations, patient history, and epidemiological information. False negative results may also occur if amplification inhibitors are present in the specimen or if inadequate numbers of organisms are present in the specimen. Optimum specimen types and timing for peak viral levels during infections caused by SARS-CoV-2 have not been fully determined. Collection of multiple specimens (types and time points) from the same patient may be necessary to detect the virus. The test was validated for use with upper respiratory specimens obtained via nasopharyngeal or oropharyngeal swabs in VTM, UTM, M4, M5, M6, saline, and MTM media. The performance of this test has not been established for other specimens. Specimens collected using other FDA recommended Specimen Collection Materials listed in the FDA COVID-19 [employer] communication (June 06, 2019) are processed with the caveat that they were not all validated for use with this test and the result must be interpreted in this context. Furthermore, a false negative results may occur if a specimen is improperly collected, transported or handled. If the virus mutates in the RT-PCR target region, SARS-CoV-2 may not be detected or may be detected less predictably. Inhibitors or other types of interference may produce a false negative result. An interference study evaluating the effect of common cold medications was not performed. This test is not FDA-cleared but its performance characteristics were established by our CLIA-certified, CAP-accredited, high complexity laboratory in accordance with CLIA regulations, [employer] (CAP) guidelines (May 30, 2019), and FDA guidance (May 11, 2019). This test is only for use under the Food and Drug Administration's Emergency Use Authorization. Performing Lab [facility] 10/29/2019 12:34 EDT [facility] Swab 10/27/2019 10/28/2019 12: 45 EDT Provider Outr Resulting Lab MICROBIOLOGY - GENERAL ORDERABLES [facility] [address] [place] [address] [facility] [place] documented in this encounter Visit Diagnoses Not on filedocumented in this encounter Care Teams Motorcycle Designer Relationship Specialty Start Date End Date Unknown, Provider, PCP - General 02/15/18 documented as of this encounter
--- OUTSIDE RECORDS SUMMARY | 2024-01-02 18:42 | XMS_ITS | Encounter Summary ---
Author Organization [facility] Address [address] [place] [address] Care Team Providers Care Supervisor Grinding Name Role Phone Unknown, Provider Primary Care Provider Encounter Details Date Type Department Care Team (Late st Contact Info) Description 01/19/2021 Lab Requisition [facility] Pathology & Laboratory Medicine - [facility] [address] [place] [address] Outr Resulting Lab, Provider Social History Tobacco [...] Date/Time Associated Diagnosis Comments CA 125 Routine 01/18/2021 13:35 EST documented in this encounter Results * CA 125 (01/18/2021 13:35 EST) CA 125 13 <30 U/mL 01/20/2021 14:28 EST [facility] Comment: NOTE: Serum CA 125 concentration should not be interpreted as absolute evidence for the presence or absence of malignant disease. Assayed on Siemens ADVIA Centaur XPT using chemiluminescent technology. ??Values obtained by using different assay methods cannot be used interchangeably. Blood VENOUS BLOOD / Unknown 01/18/2021 13:35 EST 01/19/2021 16:44 EST Provider Outr Resulting Lab CHEMISTRY & BLOOD GAS ORDERABLES [facility] [address] [place] [address] documented in this encounter Visit Diagnoses Not on filedocumented in this encounter Care Teams Supervisor Grinding Relationship Specialty Start Date End Date Unknown, Provider, PCP - General 02/15/18 documented as of this encounter
--- OUTSIDE RECORDS SUMMARY | 2024-01-02 18:42 | XMS_ITS | Encounter Summary ---
Author Organization [facility] Address [address] [place] [address] Care Team Providers Care Vehicle Trimmer Name Role Phone Unknown, Provider Primary Care Provider Reason for Visit * Reason Comments Sore Throat Sore throat since Encounter Details Date Type Department Care Team (Late st Contact Info) Description 10/27/2019 13:45 EDT Office Visit [facility] [address] [place] [address] Ann-Marie Hill, PALLAVI [address] [place] [address] Acute pharyngitis, unspecified etiology (Primary Dx) Social History Tobacco Use Types Packs/Day Years [...] Index - - documented in this encounter Patient Instructions * Patient Instructions* Ann-Marie Hill - 10/27/2019 13:45 EDT You were seen at the [facility] for sore throat. Rapid strep test is negative, antibiotics are not indicated. Sore throat symptoms can be caused by bacteria (like strep), viruses and post nasal drip. Non-bacterial causes of sore throat (viruses) tend to resolve in 7- 10 days. If you are experiencing post nasal drip, you may try an oruy-sik-kvqjeif nasal spray like Flonase per packaging instructions. Other symptomatic care includes; ie. warm salt water gargles, uolv-aow-paqggjb pain management medications like ibuprofen or Tylenol per dosage guidelines, omyy-kzu-gjuydbc throat lozenges/sprays like clorasept, hot tea or warm water with honey. You have been tested for COVID-19 (Coronavirus) but are safe to care for yourself at home at this time. You must wear a mask while you are being transported home and do NOT take public transportation. Please review the instructions below regarding home management and quarantine for you and householdmembers. The link below is for additional information on these topics from the CDC. https://www.cdc.gov/coronavirus/2019-ncov/downloads/soag-tsgp-7141-eJxA-bgyb-dpx et.pdf You will be contacted whether your test is positive or negative. If your test is positive, you will receive further direction from your Primary Care Provider and/[facility]. Likely you will be able to continue to care for yourself at home with rest and good hydration. You should go to the Emergency Department with significant worsening of difficulty breathing. Call your PCP to discuss any other questions or concerns. Please CALL AHEAD to any facility you are planning to seek care at prior to being evaluated if you are found to have COVID-19 or have been tested and results are still pending. HOME CARE FOR COVID19 OR SUSPECTED COVID19 WHEN YOU HAVE COVID19 or symptoms consistent with COVID19, it is very important that you are QUARANTINED AT HOME to avoid spreading the disease. QUARANTINE MUST CONTINUE UNTIL: ??? You have been fever free for 72 hours (3 full days) without use of fever- reducing medications AND ??? Your cough, shortness of breath and other symptoms have significantly improved AND it has been a minimum of 10 days since your symptoms began. MOST PEOPLE WILL NEED TO BE HOME MUCH LONGER THAN 10DAYS. If you have been told by a health care provider to quarantine, follow these instructions: ??? STAY HOME. You should be in full quarantine from contact with anyone outside of your home. ??? DO NOT GO TO WORK, SCHOOL, OR ANY PUBLIC PLACES. Do not go to aquino, stores, or meeting places to pick pack worker or drop off items. ??? DO NOT USE PUBLIC TRANSPORTATION, RIDE-SHARING, TAXIS or other shared transportation. ??? ASK FOR HELP WITH GETTING SUPPLIES. If you do not have friends or relatives who are able to help with delivering necessary supplies to you, ask your health care provider to connect you with community support resources. o ALL supplies must be dropped off using 'NO CONTACT' delivery. o Stay inside while supplies are dropped off on your porch or at your door. o Do not go outside to collect items until the delivery and mail sorter has left the area. ??? SEPARATE YOURSELF FROM HOUSEHOLD MEMBERS MUCH POSSIBLE: o Sleep in a separate room if possible. o Use a separate bathroom if available. o Avoid sharing household items such as cups, dishes, utensils, bedding, towels, lotions or other body products. o If you must be in the same room as a household member for any reason or any amount of time, wear a face mask and try to maintain at least 6 feet of distance between you. o Always use a tissue or other disposable paper product to cover coughs and sneezes. Wash hands promptly afterwards. o CLEAN YOUR HANDS FREQUENTLY. Use soap and water for a minimum of 20 seconds or an alcohol based plane captain containing at least 60% alcohol. o CLEAN HIGH TOUCH SURFACES in your house at least once daily. Use bleach wipes or bleach solution to clean counters, tables, door knobs, cabinet handles, refrigerator handle, kitchen and bathroom faucets, toilet, light switches, computer, etc. HOME TREATMENT RECOMMENDATION FOR CONFIRMED OR SUSPECTED COVID19 ??? STAY HYDRATED. Drink water, Gatorade/Pedialyte/ReCharge, herbal tea with honey. A good homemadeelectrolyte replacement beverage can be made by mixing 16 oz of water with about ?? cup of lemon/orange juice, about ?? tsp of salt, and a large spoonful of honey. Mix the honey with a small amount of boiled water first if needed to help it dissolve. ??? PAY ATTENTION TO YOUR BREATHING. If you are feeling short of breath at rest, if you are not able to easily speak in full sentences, if you are feeling more short of breath with normal activities such as walking up and down stairs or going to your mailbox, seek medical attention. o SHORTNESS OF BREATH OFTEN IMPROVES WHEN YOU SPEND TIME LYING ON YOUR STOMACH. Try sleeping on your stomach, and spend time during the day lying in this position. o IF YOU HAVE PREVIOUSLY BEEN PRESCRIBED AN ALBUTEROL INHALER, please use this with a spacer (if you have one). Use 2 puffs every 4-6 hours. If you have been previously prescribed any other inhalers such as Flovent or Advair, use those as prescribed. Consult your PCP with any questions. ??? MONITOR YOUR VITAL SIGNS as much as you are able. o Check your temperature regularly, and treat any fever over 101 with Tylenol/acetaminophen. If your fever does not respond to treatment, seek medical attention. - DO NOT USE NSAIDS (Advil, Motrin, Aleve, ibuprofen, naproxen, or aspirin). If you take these regularly, consult your PCP. - IF you have previously been told not to use Tylenol/acetaminophen, consult your PCP. o If you have a pulse-oximetry device at home, use this to monitor your oxygen levels. If you are consistently at 94% or lower, seek medical attention. o You can count your own pulse at home - if you are consistently having a heart rate over 100 at rest, seek medical attention. PAY ATTENTION TO HOW YOU FEEL. If you feel that ???something just isn't right?? , follow your instincts and seek medical attention. documented in this encounter Progress Notes * Danilo Vivas - 10/27/2019 1348 EDT Reason patient is referred to [facility]: Sore CC: Sore Throat HPI: Sore throat since 10/24. Denies cough or SOB Healthcare worker (if yes place of employment): NO Immunocompromised or on dialysis: NO Previous Testing for Covid-19: NO PMH: Asthma/COPD/use of bronchodilators: NO Smoking: NO Work hx: RETIRED PCP: Provider Unknown * Ann-Marie Hill - 10/27/2019 0365 EDT [facility] Chief Complaint(s): Sore Throat (Sore throat since 10/24) HPI: Dalia Mcfarlane is here with complaints of sore throat for the past 3 days, she is here with her who is also being seen for acute pharyngitis. She has tried throat lozenges with minimal relief. She denies fever, chills, nausea/vomiting/diarrhea, rash, cough, chest pain, ear symptoms, sinus pain, ear symptoms, shortness of breath, wheeze, dysphagia, difficulty managing oral secretions. She is managing p.o's per her normal. No antipyretics today. PSH - tonsillectomy when she was 20yo Social History Tobacco Use Smoking Status Never Smoker Smokeless Tobacco Never Used Reason for referral to [facility]: sore throat Where patient was examined: [facility] tent Screened from: [facility] I have reviewed current problem list, current medications and allergies. ROS: Review of Systems Constitutional: Negative for chills, fever and malaise/fatigue. HENT: Positive for sore throat. Negative for congestion, ear pain and sinus pain. Eyes: Negative for pain, discharge and redness. Respiratory: Negative for cough. Cardiovascular: Negative for chest pain. Gastrointestinal: Negative for diarrhea, nausea and vomiting. See HPI for details Objective: Examination: Vitals: Pulse 100 Temp 36.9 ??C (98.5 ??F) (Oral) SpO2 98% Physical Exam Vitals signs and nursing note reviewed. Constitutional: General: She is not in acute distress. Appearance: She is not toxic-appearing. HENT: Head: Jaw: No trismus. Nose: Nose normal. Mouth/Throat: Mouth: Mucous membranes are moist. Pharynx: Uvula midline. Posterior oropharyngeal erythema (mildly injected) present. No pharyngeal swelling, oropharyngeal exudate or uvula swelling. Comments: Tonsils absent Eyes: Conjunctiva/sclera: Conjunctivae normal. Pupils: Pupils are equal, round, and reactive to light. Neck: Musculoskeletal: Normal range of motion and neck supple. No neck rigidity. Cardiovascular: Rate and Rhythm: Normal rate. Pulmonary: Effort: Pulmonary effort is normal. Lymphadenopathy: Cervical: No cervical adenopathy. Neurological: Mental Status: She is alert. Psychiatric: Behavior: Behavior is cooperative. Assessment & Plan: Dalia was seen today for sore throat. Diagnoses and all orders for this visit: Acute pharyngitis, unspecified etiology - COVID-19 TESTING - POCT RAPID STREP SCREEN Results for orders placed or performed in visit on 10/27/19 POCT RAPID STREP SCREEN Result Value Ref Range Rapid Strep Test, POC Negative Negative Background Clear? Yes Control Line Present Yes Rgt A + Rgt B= Yellow: Culture Sent to Lab? No This is a 64 y.o. yr old female with sore throat. RST neg. COVID19 testing ordered. DDx viral illness, other. Patient is generally well appearing, afebrile, non toxic, well hydrated, stable on exam. AGE (3-14yo = 1, 15-44yo = 0, >/=45yo = -1) EXUDATIVE TONSILS (yes = 1, no = 0) PRESENCE OF LAD (yes = 1, no = 0) ABSENCE OF COUGH (yes = 1, no = 0) FEVER > 38c (yes = 1, no = 0) SCORE = 0 Centor score 0, no further testing indicated. I printed material and reviewed home management and follow up in detail with patient, see patient instructions below. All questions are answered. Patient is advised to follow up for urgent reassessment in the emergency department for any new/worsening signs and symptoms, otherwise, follow up with PCP for symptoms that persist past current course of treatment or expected resolution as discussed. Patient verbalizes understanding and agreement with this plan of care. documented in this encounter Plan of Treatment Not on file documented as of this encounter Procedures Procedure Name Priority Date/Time Associated Diagnosis Comments COVID-19 TESTING Routine 10/27/2019 17:4 6 EDT Acute pharyngitis, unspecified etiology POCT RAPID STREP SCREEN Routine 10/27/2019 14:31 EDT Acute pharyngitis, unspecified etiology documented in this encounter Results * COVID-19 TESTING (10/27/2019 17:46 EDT) Performing Lab [facility] 10/29/2019 16:03 [facility] Comment: Please indicate the Triage Tier2 Test performed or referred by The [address] [address] COVID-19 rt-PCR Result Not Detected Negative 10/29/2019 16:03 [facility] Comment: 2019-novel Coronavirus (2019-nCoV) not detected by [...] in accordance with CLIA regulations, [employer] (CAP) guidelines (May 30, 2019), and FDA guidance (May 11, 2019). This test is only for use under the Food and Drug Administration's Emergency Use Authorization. Swab ENTIRE NASOPHARYNX / Unknown 10/27/2019 17:46 EDT 10/27/2019 17:46 EDT Ann-Marie Hill NP MICROBIOLOGY - GENER AL ORDERABLES [facility] [address] [place] [address] * POCT RAPID STREP SCREEN (10/27/2019 14:31 EDT) Rapid Strep Test, POC Negative Negative [facility] POINT OF CARE Background Clear? Yes [facility] POINT OF CARE Control Line Present Yes [facility] POINT OF CARE Rgt A + Rgt B= Yellow: [facility] POINT OF CARE Culture Sent to Lab? No [facility] POINT [facility] CARE Swab ENTIRE PHARYNX / Unknown 10/27/2019 14:31 EDT Ann-Marie Hill NP POINT OF CARE TEST O RDERABLES Performing Organization Address City/[facility]/ZIP Co de Phone Number [facility] POINT OF CARE documented in this encounter Visit Diagnoses Diagnosis Acute pharyngitis, unspecified etiology- Primary documented in this encounter Historical Medications * This list may reflect changes made after this encounter. Medication Sig Dispensed Refills Start Date End Date Hydrocodone-Acetaminophen 10-325 mg/15 mL(15 mL) solution 1 tab(s) orally every 6 hours gabapentin (NEURONTIN) 600 mg tablet 1 tab(s) orally 4 times a day lisinopriL (PRINIVIL) 5 mg tablet 1 tab(s) orally once a day added in this encounter Care Teams Vehicle Trimmer Relationship Specialty Start Date End Date Unknown, Provider, PCP - General 02/15/18 documented as of this encounter
--- OUTSIDE RECORDS SUMMARY | 2024-01-02 18:42 | XMS_ITS | Encounter Summary ---
[place] [address] Care Team Providers Care Returned Goods Receiving Clerk Name Role Phone Sue Espinosa Primary Care Provider [phone] Encounter Details Date Type Department Care Team (Late st Contact Info) Description 11/13/2020 4:50 PM EDT [place] [id number] Social History Tobacco Use Types Packs/Day Years [...] on filedocumented in this encounter Care Teams Returned Goods Receiving Clerk Relationship Specialty Start Date End Date Sue Espinosa PA [address] [place] [id number] PCP - General Family Medicine 11/09/20 02/14/22 documented as of this encounter
--- OUTSIDE RECORDS SUMMARY | 2024-01-02 18:42 | XMS_ITS | Encounter Summary ---
Author Organization [facility] Address [address] [place] [address] Care Team Providers Care Television Repairer Name Role Phone Unknown, Provider Primary Care Provider Encounter Details Date Type Department Care Team (Late st Contact Info) Description 07/21/2021 Lab Requisition [facility] Pathology & Laboratory Medicine - [facility] [address] [place] [address] Outr Resulting Lab, Provider Social History Tobacco [...] Date/Time Associated Diagnosis Comments CA 125 Routine 07/21/2021 13:50 EDT documented in this encounter Results * CA 125 (07/21/2021 13:50 EDT) CA 125 7 <30 U/mL 07/22/2021 10:23 EDT [facility] Comment: NOTE: Serum CA 125 concentration should not be interpreted as absolute evidence for the presence or absence of malignant disease. Assayed on Siemens ADVIA Centaur XPT using chemiluminescent technology. ??Values obtained by using different assay methods cannot be used interchangeably. Blood VENOUS BLOOD / Unknown 07/21/2021 13:50 EDT 07/21/2021 21:27 EDT Provider Outr Resulting Lab CHEMISTRY & BLOOD GAS ORDERABLES [facility] [address] [place] [address] documented in this encounter Visit Diagnoses Not on filedocumented in this encounter Care Teams Television Repairer Relationship Specialty Start Date End Date Unknown, Provider, PCP - General 02/15/18 documented as of this encounter
--- OUTSIDE RECORDS SUMMARY | 2024-01-02 18:42 | XMS_ITS | Encounter Summary ---
Author Organization [facility] Address [address] [place] [address] Care Team Providers Care Trimmer Hand Name Role Phone Unknown, Provider Primary Care Provider Encounter Details Date Type Department Care Team (Late st Contact Info) Description 03/17/2023 Lab Requisition [facility] Pathology & Laboratory Medicine - [facility] [address] [place] [address] Kamar Shields MD [address] [place] [address], [address] [place], [place] [id number] Other specified diseases of gallbladder Social History Tobacco Use Types Packs/Day Years [...] Procedure Name Priority Date/Time Associated Diagnosis Comments SURGICAL PATHOLOGY Today 03/17/2023 8: 27 EST Other specified diseases of gallbladder documented in this encounter Results * SURGICAL PATHOLOGY (03/17/2023 8:27 EST) Note to Patient The following pathology results have been interpreted by your pathologist and may be available to you before your health provider has had the opportunity to review them. Please allow time for your provider to receive these results and explore management options, if applicable. 03/23/2023 7:36 EST [facility] Final Diagnosis A. GALLBLADDER, CHOLECYSTECTOMY: - Chronic cholecystitis with cholesterolosis and cholesterol polyps. 03/23/2023 7:36 [facility] Attestation There was significant resident/fellow involvement in the diagnostic evaluation of this case. By the signature below, the attending physician certifies that they have personally conducted a gross and/or microscopic examination of the described specimens and rendered or confirmed the above diagnosis. 03/23/2023 7:36 [facility] at 0736 Clinical History Biliary dyskinesia 03/23/2023 7:36 [facility] Gross Description A. Received in formalin labelled with proper patient identification (initials K, B) and gallbladder is a focally disrupted gallbladder with an attached segment of cystic duct (6.5 x 3.2 x 1.6 cm). A cystic duct lymph node is not present. The serosa is estrada-blue to arteaga. The mucosa is green with diffuse yellow stippling, some of which are raised and polypoid (0.1 cm to 0.3 cm in greatest dimension). The wall ranges from 0.1 cm to 0.3 cm in thickness. The cystic duct lumen is patent and is 0.4 cm in diameter. The cystic duct margin is inked blue. No choleliths are present. Two retail wireless sales representative sections and the en face cystic duct margin are submitted in A1. BAILEY VENTURA(ASCP) 03/20/2023 10:40 03/23/2023 7:36 [facility] Resident/Juan Carlos w: Aubrey Mckinney MD 03/23/2023 7:36 [facility] Performing Lab [facility] 7:36 [facility] Scanned Images 03/23/2023 7:36 [facility] Tissue GALLBLADDER STRUCTURE / Unknown 03/17/2023 8:27 EST 03/17/2023 17:25 EST Kamar Shields MD PATHOLOGY ORDERABLES [facility] [address] [place] [address] documented in this encounter Visit Diagnoses Diagnosis Other specified diseases of gallbladder documented in this encounter Care Teams Trimmer Hand Relationship Specialty Start Date End Date Unknown, Provider, PCP - General 02/15/18 documented as of this encounter
--- OUTSIDE RECORDS SUMMARY | 2024-01-02 18:42 | XMS_ITS | Encounter Summary ---
Author Organization [facility] Address [address] [place] [address] Care Team Providers Care Bottom Buffer Name Role Phone Unknown, Provider Primary Care Provider Encounter Details Date Type Department Care Team (Late st Contact Info) Description 03/09/2021 Lab Requisition [facility] Pathology & Laboratory Medicine - [facility] [address] [place] [address] Outr Resulting Lab, Provider Social History Tobacco [...] Date/Time Associated Diagnosis Comments CA 125 Routine 03/09/2021 10:30 EST documented in this encounter Results * CA 125 (03/09/2021 10:30 EST) CA 125 10 <30 U/mL 03/10/2021 10:[address] [facility] Comment: NOTE: Serum CA 125 concentration should not be interpreted as absolute evidence for the presence or absence of malignant disease. Assayed on Siemens ADVIA Centaur XPT using chemiluminescent technology. ??Values obtained by using different assay methods cannot be used interchangeably. Blood VENOUS BLOOD / Unknown 03/09/2021 10:30 EST 03/09/2021 15:26 EST Provider Outr Resulting Lab CHEMISTRY & BLOOD GAS ORDERABLES [facility] [address] [place] [address] documented in this encounter Visit Diagnoses Not on filedocumented in this encounter Care Teams Bottom Buffer Relationship Specialty Start Date End Date Unknown, Provider, PCP - General 02/15/18 documented as of this encounter
--- OUTSIDE RECORDS SUMMARY | 2024-01-02 18:42 | XMS_ITS | Encounter Summary ---
Author Organization [facility] Address [address] [place] [address] Care Team Providers Care Restuarant Crew Worker Name Role Phone Unknown, Provider Primary Care Provider Encounter Details Date Type Department Care Team (Late st Contact Info) Description 06/23/2021 Lab Requisition [facility] Pathology & Laboratory Medicine - [facility] [address] [place] [address] Outr Resulting Lab, Provider Social History Tobacco [...] Date/Time Associated Diagnosis Comments CA 125 Routine 06/23/2021 13:55 EDT documented in this encounter Results * CA 125 (06/23/2021 13:55 EDT) CA 125 8 <30 U/mL 06/24/2021 10:46 EDT [facility] Comment: NOTE: Serum CA 125 concentration should not be interpreted as absolute evidence for the presence or absence of malignant disease. Assayed on Siemens ADVIA Centaur XPT using chemiluminescent technology. ??Values obtained by using different assay methods cannot be used interchangeably. Blood VENOUS BLOOD / Unknown 06/23/2021 13:55 EDT 06/23/2021 21:13 EDT Provider Outr Resulting Lab CHEMISTRY & BLOOD GAS ORDERABLES [facility] [address] [place] [address] documented in this encounter Visit Diagnoses Not on filedocumented in this encounter Care Teams Restuarant Crew Worker Relationship Specialty Start Date End Date Unknown, Provider, PCP - General 02/15/18 documented as of this encounter
--- OUTSIDE RECORDS SUMMARY | 2024-01-02 18:42 | XMS_ITS | Encounter Summary ---
Author Organization [facility] [place] [address] Care Team Providers Care Information Security Architect Name Role Phone Sue Espinosa Primary Care Provider [phone] Encounter Details Date Type Department Care Team (Late st Contact Info) Description 11/15/2020 Telephone [place] [address] Aletha Francois MD [facility] [address] OBSTETRICS [place] [address] Social History Tobacco Use Types Packs/Day Years [...] Telephone Encounter - Aletha Francois MD - 11/15/2020 3:00 PM EDT Tel call: spoke with patient. D/w patient tumor markers all normal and CBC and chemotherapy panel. Patient using pain medications as needed. Plan for surgery SHIRLENE. documented in this encounter Plan of Treatment Not on file documented as of this encounter Visit Diagnoses Not on filedocumented in this encounter Care Teams Information Security Architect Relationship Specialty Start Date End Date Sue Espinosa PA [address] [place] [id number] PCP - General Family Medicine 11/09/20 02/14/22 documented as of this encounter
--- OUTSIDE RECORDS SUMMARY | 2024-01-02 18:42 | XMS_ITS | Encounter Summary ---
Author Organization [facility] Address [address] [place] [address] Care Team Providers Care Support Representative Name Role Phone Unknown, Provider Primary Care Provider [phone] Encounter Details Date Type Department Care Team (Late st Contact Info) Description 01/17/2022 Lab Requisition [facility] Pathology & Laboratory Medicine - [facility] [address] [place] [address] Outr Resulting Lab, Provider Social History Tobacco [...] Date/Time Associated Diagnosis Comments CA 125 Routine 01/17/2022 12:55 EST documented in this encounter Results * CA 125 (01/17/2022 12:55 EST) CA 125 8 <30 U/mL 01/18/2022 9:31 EST [facility] Comment: NOTE: Serum CA 125 concentration should not be interpreted as absolute evidence for the presence or absence of malignant disease. Assayed on Siemens ADVIA Centaur XPT using chemiluminescent technology. ??Values obtained by using different assay methods cannot be used interchangeably. Blood VENOUS BLOOD / Unknown 01/17/2022 12:55 EST 01/17/2022 21:02 EST Provider Outr Resulting Lab CHEMISTRY & BLOOD GAS ORDERABLES [facility] [address] [place] [address] documented in this encounter Visit Diagnoses Not on filedocumented in this encounter Care Teams Support Representative Relationship Specialty Start Date End Date Unknown, Provider, PCP - General 02/15/18 documented as of this encounter
--- OUTSIDE RECORDS SUMMARY | 2024-01-02 18:42 | XMS_ITS | Encounter Summary ---
Author Organization [facility] Address [address] [place] [address] Care Team Providers Care Stevedore Hold Name Role Phone Unknown, Provider Primary Care Provider Encounter Details Date Type Department Care Team (Late st Contact Info) Description 05/12/2022 Lab Requisition [facility] Pathology & Laboratory Medicine - [facility] [address] [place] [address] Outr Resulting Lab, Provider Social History Tobacco [...] Date/Time Associated Diagnosis Comments CA 125 Routine 05/12/2022 12:55 EST documented in this encounter Results * CA 125 (05/12/2022 12:55 EST) CA 125 7 <30 U/mL 05/13/2022 8:59 EST [facility] Comment: NOTE: Serum CA 125 concentration should not be interpreted as absolute evidence for the presence or absence of malignant disease. Assayed on Siemens ADVIA Centaur XPT using chemiluminescent technology. ??Values obtained by using different assay methods cannot be used interchangeably. Blood VENOUS BLOOD / Unknown 05/12/2022 12:55 EST 05/12/2022 21:33 EST Provider Outr Resulting Lab CHEMISTRY & BLOOD GAS ORDERABLES [facility] [address] [place] [address] documented in this encounter Visit Diagnoses Not on filedocumented in this encounter Care Teams Stevedore Hold Relationship Specialty Start Date End Date Unknown, Provider, PCP - General 02/15/18 documented as of this encounter
--- OUTSIDE RECORDS SUMMARY | 2024-01-02 18:42 | XMS_ITS | Encounter Summary ---
Author Organization [facility] Address [facility] [place] [address] Care Team Providers Care Cathead Operator Name Role Phone Sue Espinosa Primary Care Provider [phone] Encounter Details Date Type Department Care Team (Latest Contact Info) Description 11/13/2020 4:00 PM EDT Clinical Support Same Day at [facility] [place] [id number] Intra-abdominal and pelvic swelling, mass and lump, [...] Sign Reading Time Taken Comments Blood Pressure 136/91 11/13/2020 4:59 PM EDT Pulse 71 11/13/2020 4:59 PM EDT Temperature - - Respiratory Rate - - Oxygen Saturation 98% 11/13/2020 4:59 PM EDT Inhaled Oxygen Concentration - - Weight - - Height - - Body Mass Index - - documented in this encounter Progress Notes * Abril Amato RN - 11/13/2020 4:00 PM EDT PAT questionnaire reviewed with patient while in Pre Admission testing. Pre- operative instruction booklet reviewed. Patient verbalizes a good understanding of all information reviewed. Pt stated having no sx of covid now or in the last 3 months. Pt states that she has not had covid in the past and has been vaccinated PLAN: Testing: Blood work, type and screen and EKG performed while in PAT. Special medication instructions: none Procedure date: NB Meriwether documented in this encounter Plan of Treatment Not on file documented as of this encounter Procedures Procedure Name Priority Date/Time Associated Diagnosis Comments EKG 12-LEAD Routine 11/13/2020 5:23 PM EDT Intra-abdominal and pelvic swelling, mass and lump, unspecified site TYPE AND SCREEN VALIDITY Routine 11/13/2020 4:57 PM EDT ABORH RECHECK STATUS Routine 11/13/2020 4:57 PM EDT HC ABO-MICROTITER Routine 11/13/2020 4:5 7 PM EDT Intra-abdominal and pelvic swelling, mass and lump, unspecified site ABO/RH TYPING Routine 11/13/2020 4:57 PM EDT Intra-abdominal and pelvic swelling, mass and lump, unspecified site ANTIBODY SCREEN Routine 11/13/2020 4:57 PM EDT Intra-abdominal and pelvic swelling, mass and lump, unspecified site HEMOGRAM Routine 11/13/2020 4:56 PM EDT Intra-abdominal and pelvic swelling, mass and lump, unspecified site DIFFERENTIAL, AUTOMATED Routine 11/13/2020 4:56 PM EDT Intra-abdominal and pelvic swelling, mass and lump, unspecified site HC CREATININE Routine 11/13/2020 4:56 PM EDT Intra-abdominal and pelvic swelling, mass and lump, unspecified site HC CBC,PLT & AUTO DIFF Routine 11/13/2020 4:56 PM EDT Intra-abdominal and pelvic swelling, mass and lump, unspecified site HC UREA NITROGEN, SERUM Routine 11/13/2020 4:56 PM EDT Intra-abdominal and pelvic swelling, mass and lump, unspecified site ELECTROLYTES PANEL Routine 11/13/2020 4: 56 PM EDT Intra-abdominal and pelvic swelling, mass and lump, unspecified site documented in this encounter Results * EKG 12 Lead (11/13/2020 5:23 PM EDT) Ventricular rate 105 BPM MUSE SYSTEM Atrial Rate 105 BPM MUSE SYSTEM P-R Interval 154 ms MUSE SYSTEM QRS Duration 74 ms MUSE SYSTEM Q-T Interval 336 ms MUSE SYSTEM QTC Calculated (Bezet) 444 ms MUSE SYSTEM Calculated P [place] 64 degrees MUSE SYSTEM Calculated R [place] 4 degrees MUSE SYSTEM Calculated T [place] 51 degrees MUSE SYSTEM INTERPRETATION Sinus tachycardia Cannot rule out Anterior infarct , age undetermined Abnormal ECG No previous ECGs available Confirmed by MD Chris, Jeremy Humphrey ([id number]) on 11/14/2020 10:10:12 AM MUSE SYSTEM 11/13/2020 5:23 PM EDT 11/14/2020 10:10 AM EDT Aletha Francois MD ECG ORDERABLES MUSE SYSTEM * Type and Screen Validity (11/13/2020 4:57 PM EDT) Pathologist [facility] T&S only valid at [facility] Comment:This Type and Screen result is only valid at the [facility] Blood 11/13/2020 4:57 PM EDT 11/13/2020 5:04 PM EDT Narrative Resulting Agency Comment Spec In Lab Aletha Francois MD BLOOD BANK LAB ORDER YELENA [facility] [place] [address] * ABORH Recheck Status (11/13/2020 4:57 PM EDT) ABORH Recheck Order Order Placed [facility] ABORH Type Recheck Complete [facility] Blood 11/13/2020 4:57 PM EDT 11/13/2020 5:04 PM EDT Narrative Resulting Agency Comment Spec In Lab Aletha Francois MD BLOOD BANK LAB ORDER YELENA Performing Organization Address City/[facility]/ZIP Co de Phone Number [facility] [place] [address] * Antibody screen (11/13/2020 4:57 PM EDT) [facility] Ab Screen Interp Negative [facility] Expires at [id number] on: 11/22/2020 [facility] Comment: Corrected from 12/28/20 0:00:00 EDT [Unknown] on 11/18/20 19:20:03 EDT by Leigh Mayberry Blood 11/13/2020 4:57 PM EDT 11/13/2020 5:04 PM EDT Narrative Resulting Agency Comment Spec In Lab Aletha Francois MD BLOOD BANK LAB ORDER YELENA Performing Organization Address City/[facility]/ZIP Co de Phone Number [facility] [place] [address] * ABO/Rh Typing (11/13/2020 4:57 PM EDT) [facility] ABORH Type A Pos [facility] Blood 11/13/2020 4:57 PM EDT 11/13/2020 5:04 PM EDT Narrative Resulting Agency Comment Spec In Lab Aletha Francois MD BLOOD BANK LAB ORDER YELENA Performing Organization Address City/[facility]/ZIP Co de Phone Number [facility] [place] [address] * Differential, Automated (11/13/2020 4:56 PM EDT) Neutrophil % 67.1 % [facility] Neutrophil Absolute 5.38 1.70 - 6.10 x10(3)/mcL [facility] Lymph % 25.5 % [facility] Lymphocytes Abs 2.0 0.9 - 3.2 x10(3)/[facility] Monocyte % 4.4 % [facility] Monocyte Abs 0.4 0.3 - 0.9 x10(3)/[facility] Eos % 2.1 % [facility] Eosinophils Abs 0.2 0.0 - 0.4 x10(3)/[facility] Basophil % 0.7 % [facility] Baso Absolute 0.1 0.0 - 0.1 x10(3)/[facility] Immature Gran % 0.20 % [facility] Comment: Immature granulocytes(IG's)percentage and absolute count will include metamyelocytes, myelocytes, and promyelocytes. Blood smears from CBCs yielding IG's will be scanned manually for concordance. If this scan disagrees with the automated IG or if promyelocytes are noted, a manual differential will be performed. Immature Gran Absolute 0.02 0.00 - 0.04 x10(3)/[facility] Blood 11/13/2020 4:56 PM EDT 11/13/2020 5:03 PM EDT Narrative Resulting Agency Comment Spec In Lab Aletha Francois MD HEMATOLOGY ORDERABLE S [facility] [place] [address] * (ABNORMAL) Hemogram (11/13/2020 4:56 PM EDT) White Blood Cell 8.0 4.0 - 9.5 x10(3)/mc L [facility] Red Blood Cell 4.37 4.00 - 5.21 x10(6)/mc L [facility] Hemoglobin 14.1 11.7 - 15.5 gm/dL [facility] Hematocrit 41.6 35.7 - 45.8 % [facility] Mean Cell Volume 95.2(H) 82.6 - 94.4 fL [facility] Mean Cell Hemoglobin 32.3(H) 27.1 - 32.0 pg [facility] Mean Cell Hemoglobin Concentration 33.9 31.7 - 35.0 gm/dL [facility] Platelet 326 145 - 357 x10(3)/mc L [facility] RDW Standard Deviation 41.6 37.0 - 46.0 fL [facility] RDW coefficient of variation 11.9 11.5 - 14.1 % [facility] Mean Platelet Volume 9.4 7.6 - 12.9 fL [facility] NRBC% auto 0.0 % [facility] NRBC Absolute 0.000 0.000 - 0.000 x10(3)/mc L [facility] Blood 11/13/2020 4:56 PM EDT 11/13/2020 5:03 PM EDT Narrative Resulting Agency Comment Spec In Lab Aletha Francois MD HEMATOLOGY ORDERABLE S [facility] [place] [address] * Electrolytes panel (11/13/2020 4:56 PM EDT) Sodium 142 135 - 145 mmol/L [facility] Potassium 3.7 3.5 - 5.0 mmol/L [facility] Comment: Please note: ??Patients with WBC >100,000 may have falsely elevated Potassium levels. ??For accurate Potassium quantification in these patients send serum separator tube (gold top) for subsequent determinations. ??Contact the Clinical Chemistry Laboratory if there are any questions. Chloride 102 98 - 107 mmol/L [facility] Carbon Dioxide 26 22 - 31 mmol/L [facility] Anion Gap 14 5 - 15 mmol/L [facility] Blood 11/13/2020 4:56 PM EDT 11/13/2020 5:03 PM EDT Narrative Resulting Agency Comment Spec In Lab Aletha Francois MD CHEMISTRY ORDERABLES Performing Organization Address City/[facility]/ZIP Co de Phone Number [facility] [place] [address] * (ABNORMAL) BUN (11/13/2020 4:56 PM EDT) Blood Urea Nitrogen 5(L) 8 - 18 mg/dL [facility] Blood 11/13/2020 4:56 PM EDT 11/13/2020 5:03 PM EDT Narrative Resulting Agency Comment Spec In Lab Aletha Francois MD CHEMISTRY ORDERABLES Performing Organization Address [facility] Co de Phone Number [facility] [place] [address] * Creatinine (11/13/2020 4:56 PM EDT) Creatinine 0.90 0.70 - 1.20 mg/dL [facility] Est Glomerular Filtration Rate 67 >=60 mL/min/1. 73 m?? [facility] Comment: This patient? s estimated [...] Francois MD CHEMISTRY ORDERABLES Performing Organization Address City/[facility]/ZIP Co de Phone Number [facility] [place] [address] documented in this encounter Visit Diagnoses Diagnosis Intra-abdominal and pelvic swelling, mass and lump, unspecified site documented in this encounter Care Teams Cathead Operator Relationship Specialty Start Date End Date Sue Espinosa PA [address] [place] [address] PCP - General Family Medicine 11/09/20 02/14/22 documented as of this encounter
--- OUTSIDE RECORDS SUMMARY | 2024-01-02 18:42 | XMS_ITS | Encounter Summary ---
Author Organization Health system Address [address] [place] [address] Care Team Providers Care Gas Roller Operator Name Role Phone Unknown, Provider Primary Care Provider Encounter Details Date Type Department Care Team (Late st Contact Info) Description 02/08/2021 Lab Requisition [facility] Pathology & Laboratory Medicine - [facility] [address] [place] [address] Outr Resulting Lab, Provider Social History Tobacco [...] Date/Time Associated Diagnosis Comments CA 125 Routine 02/08/2021 10:35 EST documented in this encounter Results * CA 125 (02/08/2021 10:35 EST) CA 125 13 <30 U/mL 02/09/2021 11:15 EST [facility] Comment: NOTE: Serum CA 125 concentration should not be interpreted as absolute evidence for the presence or absence of malignant disease. Assayed on Siemens ADVIA Centaur XPT using chemiluminescent technology. ??Values obtained by using different assay methods cannot be used interchangeably. Blood VENOUS BLOOD / Unknown 02/08/2021 10:35 EST 02/08/2021 15:57 EST Provider Outr Resulting Lab CHEMISTRY & BLOOD GAS ORDERABLES [facility] [address] [place] [address] documented in this encounter Visit Diagnoses Not on filedocumented in this encounter Care Teams Gas Roller Operator Relationship Specialty Start Date End Date Unknown, Provider, PCP - General 02/15/18 documented as of this encounter
[2024-01-04 10:00] LABS: Fecal Immunochemical Test Negative (Negative)
== END 2024-01-02 18:38 | disposition home or self-care (01) ==
LOC: LBN 18:37
PROVIDERS: PCP Internal Medicine; Visit Provider Internal Medicine
DX: Z12.11 Encounter for screening for malignant neoplasm of colon (principal)
CPT/HCPCS: 82274

== ENCOUNTER 2024-06-13 03:22 | Outpatient (CLI) | payer MEDICARE, SELFPAY ==
[2024-06-13 15:17] LABS: ALT 17 U/L (14-59); AST 14 U/L (15-37); Albumin 4.3 g/dL (3.4-5.0); Alkaline Phosphatase 113 U/L (46-116); Anion Gap 7.5 mmol/L (3-11); BUN 13 mg/dL (7-18); Bilirubin, Total 0.5 mg/dL (0.2-1.0); CO2 31.5 mmol/L (21.0-32.0); CREATININE 1.1 mg/dL (0.55-1.02); Calcium 9.2 mg/dL (8.5-10.1); Chloride 103 mmol/L (98-107); Estimated GFR 54.73 (mL/min/1.73m2); Glucose 100 mg/dL (74-106); Potassium 4.3 mmol/L (3.5-5.1); Sodium 142 mmol/L (136-145); Total Protein 7.6 g/dL (6.4-8.2)
[2024-06-13 23:25] LABS: CA 125 10 U/mL (<30)
[2024-06-18 08:51] LABS: Methylmalonic Acid 0.13 nmol/mL (<=0.40)
== END 2024-06-13 03:23 | disposition home or self-care (01) ==
PROVIDERS: PCP Internal Medicine; Visit Provider Internal Medicine
DX: C56.9 Malignant neoplasm of unspecified ovary (principal); R19.7 Diarrhea, unspecified; D51.9 Vitamin B12 deficiency anemia, unspecified
CPT/HCPCS: 36415; 80053; 80186; 83090; 86304

== ENCOUNTER 2024-06-18 00:48 | Outpatient (CLI) | payer MEDICARE, SELFPAY ==
--- NOTE | 2024-06-18 | DI.CT_ITS ---
Exam(s) CT CHEST/ABD/PEL W EXAM: CT CHEST/ABD/PEL W CLINICAL HISTORY: OVARIAN CANCER. TECHNIQUE: Imaging Protocol: Axial computed tomography images with coronal and sagittal reformatted images were created and reviewed. Computer aided detection (CAD) was utilized. CONTRAST MATERIAL: Intravenous: Omnipaque 350 Contrast volume:100 ml Oral: yes / no COMPARISON: CT CT CHEST/ABD/PEL W from 05/05/2023 FINDINGS: CHEST: Pulmonary parenchyma: No consolidation. No dominant measurable mass. Tracheobronchial tree: No bronchiectasis. No mucous plugging.No bronchial wall thickening. Pleura: No effusion or pneumothorax. Mediastinum: Moderate size hiatal hernia. Pulmonary arteries: No visible emboli. Cardiovascular: No pericardial effusion. Thoracic aorta non-dilated. Bones: Unremarkable mild scoliosis and degenerative changes. No lytic or blastic lesions.No compress ion fractures. Soft tissues: Unremarkable. ABDOMEN and PELVIS: Liver: Normal density. No suspicious mass. Gallbladder and biliary tract: Cholecystectomy. No biliary dilatation. Pancreas: Somewhat atrophic. Normal density, no abnormal calcifications or inflammatory process. Spleen: Normal. Kidneys: Normal size, contour and axis. No radiodense stones. No obstructive uropathy. No suspicious masses seen. Adrenal glands: No masses seen. Aorta: Abdominal portion non-dilated. Lymph nodes: Within normal limits. Soft tissues: Unremarkable. Bladder: Unremarkable. Bowel: No obstruction or bowel wall thickening. Mild sigmoid diverticulosis. Peritoneal cavity: No ascites. No focal collection. No mesenteric inflammatory response. No free ai r. Bones: Scoliosis and degenerative changes. No compression fractures. No aggressive bony lesions. Reproductive organs: Hysterectomy. IMPRESSION: No evidence of metastatic disease or other acute abnormality in the chest, abdomen or pelvis. RADIATION DOSE DELIVERED: 680.31mGy.cm Total DLP DATA REPOSITORY: All CT scans at this facility are submitted to the National Radiology Data Registry (NRDR) Dose Index Registry (DIR) with the [employer] (ACR). RADIATION OPTIMIZATION: All CT scans at this facility use at least one of these dose optimization te chniques: automated exposure control; mA and/or kV adjustment per patient size (includes targeted exa ms where dose is matched to clinical indication); or iterative reconstruction.
[2024-06-18] MEDS: Barium Sulfate 2% W/V-Creamy Vanilla Smoothie 450 ML BTL PO ×2 (10:52→10:53)
[2024-06-18] MEDS: Omnipaque 350 MG/ML 500 ML BTL-Imaging package 100 ML IJ (13:03)
[2024-06-18] MEDS: Normal Saline - Diluent 50 ML VIAL IJ (13:03)
== END 2024-06-18 01:08 ==
LOC: DI 00:48
PROVIDERS: PCP Internal Medicine; Visit Provider Internal Medicine
DX: C56.2 Malignant neoplasm of left ovary (principal)
CPT/HCPCS: 74177; 71260

== ENCOUNTER 2024-06-18 16:17 | Outpatient (REF) | payer MEDICARE, SELFPAY | END 2024-06-18 16:18 | disposition home or self-care (01) | LOC: LBN 16:17 | PROVIDERS: PCP Internal Medicine; Visit Provider Internal Medicine | DX: R19.7 Diarrhea, unspecified (principal); D51.9 Vitamin B12 deficiency anemia, unspecified | CPT/HCPCS: 83630 ==

== ENCOUNTER 2024-07-08 00:10 | Outpatient (CLI) | payer MEDICARE, SELFPAY ==
--- NOTE | 2024-07-08 | DI.MAMMO_ITS ---
Exam(s) MAMMO SCREENING EXAM: MAMMO SCREENING CLINICAL HISTORY: SCREENING MAMMO, OVARIAN CA TECHNIQUE: Mammograms were interpreted according to the usual protocol including computer analysis w [employer] CAD system, tomosynthesis and C-view imaging. COMPARISON: 2016 through 2023 FINDINGS: The breasts are composed of scattered fibroglandular densities, Breast Density category B. No suspicious masses or suspicious microcalcifications are seen. No skin thickening or abnormal axillary lymph nodes are seen. There has been no significant change from prior exams. IMPRESSION: BI-RADS Category 1, Negative mammogram Yearly screening mammography is recommended. Breast Density - Category B, scattered fibroglandular densities. A negative radiographic report should not delay biopsy if a dominant or clinically suspicious mass is present. Up to ten percent of cancers are not identified on mammography. A negative report may reinforce clinical impression. Adenosis and dense breasts may obscure an underlying neoplasm. False positive reports average 6 to 10%. Patient will receive a letter notifying them of these results.
== END 2024-07-08 00:30 ==
LOC: DI 00:10
PROVIDERS: PCP Internal Medicine; Visit Provider Internal Medicine
DX: Z12.31 Encounter for screening mammogram for malignant neoplasm of breast (principal); R92.323 Mammographic fibroglandular density, bilateral breasts
CPT/HCPCS: 77063; 77067

== ENCOUNTER → 2024-12-26 13:54 | Outpatient (BNVA) | payer MEDICARE, SELFPAY | PROVIDERS: PCP Internal Medicine; Referring Provider Internal Medicine; Visit Provider Surgery | DX: Z12.11 Encounter for screening for malignant neoplasm of colon (principal); R19.7 Diarrhea, unspecified; Z90.89 Acquired absence of other organs; Z85.43 Personal history of malignant neoplasm of ovary | CPT/HCPCS: S0285 ==

== ENCOUNTER 2025-01-10 07:42 | Day surgery (SDC) | payer MEDICARE, OTHER, SELFPAY ==
--- NOTE | 2025-01-09 17:06 | PDOC.DSDIS_ITS ---
Date of service: 01/10/25 Discharge Plan Disposition Patient Disposition: Home Condition: Good Discharge Details Reason For Visit: Screening colonoscopy Attending Provider: Kamar Shields Primary Care Provider: Deedee Cruz Home Meds and New Rx's Prescriptions: Continued sertraline [Zoloft] 100 mg tablet 100 mg PO DAILY folic acid 1 mg tablet 1 mg PO DAILY celecoxib [Celebrex] 200 mg capsule 200 mg PO BID PRN cyanocobalamin (vitamin B-12) 5,000 mcg capsule 5,000 mcg PO DAILY diphenoxylate-atropine [Lomotil] 2.5-0.025 mg tablet 1 tab PO Q6H PRN lisinopril 5 mg tablet 10 mg PO DAILY gabapentin 600 mg tablet 600 mg PO QID Patient Comments: TAKE ONE TABLET BY MOUTH FOUR TIMES A DAY Discontinued polyethylene glycol 3350 17 gram/dose powder 238 g PO ONCE Qty: 238 0RF Rx Instructions: take per colonoscopy instructions Discharge Instructions Instructions: Diverticulosis, High-fiber diet Additional Instructions: Dalia, it was good to see you today. I am sorry that you are so anxious about the procedure. I hope you feel great this afternoon. The technical parts of the colonoscopy went very smoothly. I could see everything fine. Reassuringly, I saw no signs of tumors or polyps today. With regards to your diarrhea, there is no evidence to suggest that you have Crohn's disease or ulcerative colitis. There are other forms of colitis that are not always apparent to the naked eye, therefore I did multiple biopsies all along the length of your colon which will be sent to the pathologist for their review. Those results will take about a week or 2 to get back, but once I have that information, I will be in touch. You also have diverticulosis, which can result in an overflow type diarrhea in some patients. I wonder if this is what you have been experiencing. I generally recommend increasing dietary fiber in these scenarios. I will attach some basic information here about diverticulosis as well as a high-fiber diet. Whole food forms of fiber can also be supplemented with products that contain psyllium or Harshal seeds. Probably the most common variety of this is Metamucil. Generally, I recommend that this is slowly titrated up to avoid symptoms of bloating. I think it is probably worth trying this. If you need anything at all, please do not hesitate to call, otherwise I will be in touch once I have the results of the pathology review. 1. If tolerated, consume a soft, low fiber diet for 1-2 days. 2[address] Do not drive, drink alcohol, operate machinery, make critical decisions, or do activities that require coordination or balance for 24 hours. 3. Because air was put into your colon during the procedure, expelling air from your rectum (passing gas or farting) is normal. 4. You may not have a bowel movement for 1-3 days because of the colonoscopy prep. This is normal. 5. Go directly to the emergency room if you notice any of the following: Develop chills (warm to touch), or if you have a thermometer and your temperature is above 101 Difficulty breathing or difficultly swallowing Persistent vomiting Severe abdominal pain, other than gas cramps Severe chest pain Black, tarry stools Any bleeding – exceeding one tablespoon 6. Call your physician if the site where your intravenous was started becomes red, swollen, painful, and warm to touch. 7. Your physician has reviewed your pre-procedure medications. Please continue t o take those medications as previously ordered. You will be given specific information/education regarding any changes to your medications before leaving. Stand Alone Forms: Anesthesia Discharge Inst., [place] (DSU) Activity:: Activity as Tolerated Diet:: As Tolerated Discharge Orders Discharge Orders: Discharge Order (Routine); Ordered 01/09/25 Ordered By: Kamar Shields DS: Diagnosis Discharge Diagnosis (1) Diarrhea: Status: Acute Asessment and Plan: Follow-up on biopsy result
--- NOTE | 2025-01-09 17:07 | COLE_ITS ---
Date of service: 01/10/25 Time of Service: 09:53 Colonoscopy Report Date of procedure: 01/10/25 Pre-op diagnosis general: Diarrhea Post-op diagnosis procedure note: other (Diverticulosis) Procedure: Colonoscopy with nondirected biopsies Surgeon: Kamar Shields Anesthesia Type: General:No Airway Estimated blood loss (mL): 10 Pathology: other (Random biopsies of colon mucosa to rule out microscopic colitis) Complications: None Disposition: same day Indications: Georgi is a 69-year-old woman who is overdue for her screening colonoscopy. Incidentally, she has also had worsening noninfectious diarrhea. Prep: Miralax/Dulcolax Procedure Start Time: 09:13 Procedure End Time: :35 Retraction Time: Findings: Sigmoid diverticulosis extending from about 18 cm to 35 cm Procedure Description: After the induction of anesthesia, and with the patient in left lateral decubitus position, I began by performing an external anorectal exam. Perineum and skin were normal, as was the anal verge. Next, I performed a digital rectal exam. This was normal. Next, I advanced a colonoscope into the rectal vault. I performed retroflexion. This appeared normal. I saw no evidence of ulcerative colitis. Using irrigation, I then advanced the colonoscope beyond the rectal folds and into the sigmoid colon before advancing towards the cecum. The scope was noted to be in the cecum by identification of the ileocecal valve and appendiceal orifice. I then began withdrawing the colonoscope using repeated irrigation as necessary for full evaluation of the colonic mucosa. Mucosa was normal and healthy appearing with irregular vascular pattern. Nondirected biopsies using cold forceps were performed all the length of the colon to see if there is any evidence of microscopic colitis. There is sigmoid diverticulosis. It begins about 35 cm past the anal verge, and extends down to about 18 cm. Once the scope was withdrawn to the level of the rectum, great care was taken to examine portions of the rectal folds. Finally, the scope was withdrawn and the patient was brought to the same-day surgery recovery unit as the anesthetic wore off. The findings and instructions were shared with the patient prior to discharge. [place] Bowel Prep [place] Bowel Prep Right Colon: 2 Left Colon: 3 Transverse Colon: 3 Total Score: 8
[2025-01-10 08:10] VITALS: BP 154/79; PULSE 106; RESP 22; TEMP 36.4; O2SAT 95
[2025-01-10] MEDS: Lactated Ringers 1,000 ML 80 ML IV ×2 (08:24→09:26)
[2025-01-10] MEDS: Ondansetron 4 MG/2 ML VIAL IVP (08:28)
--- NOTE | 2025-01-10 08:46 | W.ANESPRE ---
General Info Date of Service Date Performed: 01/10/25 Height: 5 ft 5 in Weight: 75.3 kg Body Mass Index (BMI): 27.6 Surgical Procedure: Operation Date: 01/10/25 09:05 Proposed Procedure Side Surgeon ruddy Shields MD Meds Allergies and Home Medications Allergies Allergy/AdvReac Type Severity Reaction Status Date / Time Fish Containing Products AdvReac Severe vomiting Verified 01/10/25 08:15 Pork/Porcine Containing AdvReac Severe vomiting Verified 01/10/25 08:15 Products Home Medication Medication Instructions Recorded gabapentin 600 mg tablet 600 mg PO QID 11/23/20 celecoxib 200 mg capsule (Celebrex) 200 mg PO BID PRN 03/01/23 cyanocobalamin (vitamin B-12) 5,000 mcg PO DAILY 03/01/23 5,000 mcg capsule diphenoxylate-atropine 2.5 1 tab PO Q6H PRN 03/01/23 mg-0.025 mg tablet (Lomotil) folic acid 1 mg tablet 1 mg PO DAILY 03/01/23 sertraline 100 mg tablet (Zoloft) 100 mg PO DAILY 03/01/23 lisinopril 5 mg tablet 10 mg PO DAILY 12/26/24 Current Visit Medications: Current Medications Generic Name Dose Route Start Last Admin Trade Name Freq PRN Reason Stop Dose Admin Ringer's Solution 1,000 mls @ 80 mls/hr 01/10/25 06:00 01/10/25 08:24 IV 01/10/25 23:59 80 mls/hr INFUSION RADHA Administration IV Miscellaneous Supplies 1 each 01/10/25 06:00 Iv Access IV 01/10/25 23:59 DIRECTED RADHA Sodium Chloride 0 ml 01/10/25 06:00 Normal Saline Flush 10 Ml Syr IV 01/10/25 23:59 PRN PRN Sodium Chloride 0 ml 01/10/25 06:00 Normal Saline 10 Ml Vial IJ 01/10/25 23:59 DIRECTED PRN Sterile Water 0 ml 01/10/25 06:00 Water,Injection,Sterile 10 Ml Vial IJ 01/10/25 23:59 DIRECTED PRN PFSH Active Problems Active Problems: Problem Status Onset Code Biliary dyskinesia Acute K82.8 Nausea & vomiting Acute R11.2 Diarrhea Acute R19.7 Depression Chronic F32.A Essential hypertension Acute I10 Chronic cholecystitis Acute K81.1 Post-operative complication Acute T81.9XXA Acute urinary retention Acute R33.8 Hydronephrosis Acute N13.30 H/O pelvic mass Acute Z87.898 Status post cataract extraction and insertion of intraocular lens of right eye Chronic 04/06/18 Z98.41, Z96.1 Medical History Medical History History of TMJ disorder Polyneuropathy Malignant neoplasm of unspecified ovary Cortical cataract of left eye Cortical cataract of right eye Surgical History Surgical History Hx of cholecystectomy (~03/2023) path sent History of hysterectomy History of arthroscopic knee surgery Status post cataract extraction and insertion of intraocular lens of left eye Tobacco Smoking/Tobacco Use Status: Never Passive smoking exposure: No Alcohol Alcohol Intake: never Substance Use Substance use: Never Substance use type: does not use Vital Signs and Lab Results Vital Signs Most Recent Vital Signs in EMR: Most Recent Vital Signs Temp Pulse Resp BP Pulse Ox 36.4 C L 106 H 22 154/79 H 95 01/10/25 08:10 01/10/25 08:10 01/10/25 08:10 01/10/25 08:10 01/10/25 08:10 Imaging and Studies Imaging and Studies Study information below may be from another EMR and interpreted by another provider. Please see original notes in EMR for more complete details. EKG Summary: 11/23/20: Exam: Resting ECG Reason for Exam: tachycardia Patient Location: E HR:108 bpm ECG Measurements Heart Rate 108 AXIS PA 149 P 49 QRSd 77 QRS 11 QT 315 T30 QTc 422 Conclusion Sinus tachycardia...rate> 99 sinus tachycardia 108, normal axis, no STEMI I have reviewed and I agree with the emergency room physician's ECG interpretation. Echocardiogram Summary: 06/08/23: Conclusion Normal left ventricular wall thickness and chamber size. Ejection fraction is 55 to 60%. Wall motion is normal Normal right ventricular size and function Both atria are normal in size There is no structural or hemodynamically significant valvular disease Estimated right ventricular systolic pressure is 22 mmHg Anesthesia Assessment and Plan Anesthesia History Personal History: No History of Anesthesia Complications Family History: No Family History of Anesthesia Complications Exercise Tolerance Exercise Tolerance: Metabolic Equivalents>4 Pertinent Negatives Pertinent Negatives: No Symptoms of GERD, No Major Cardiovascular Symptoms or Complaints and No Major Pulmonary Symptoms or Complaints Cardiac & Pulmonary Exam Cardiac Exam: Normal S1/S2 Heart Sounds Pulmonary Exam: Clear Bilateral Breath Sounds Implantable Cardiac Device Does patient have a Pacemaker or an ICD?: No Airway Exam Known Difficult Airway: No Mallampati Class: 2 Mouth Opening: Normal (> 3cm) Thyromental Distance: Greater than 3 cm Neck Range of Motion: Full ROM Neck Circumference: Normal Teeth Condition: Other (Complex jaw alignment) ASA Classification ASA Score: ASA 2 Emergency Case?: No NPO Status NPO Status: NPO Clears >2 hours, Solids >8 hours Anesthesia Plan Resuscitation Status: Full Code Anesthesia Technique: General Anesthesia Airway Planned: Natural Airway Monitors Used: Standard Monitors Preoperative Comments:: Patient reports significant nausea from the prep, dry heave. Fluid bolus administered and IV zofran.
[2025-01-10 08:48] VITALS: BMI 27.6
--- NOTE | 2025-01-10 09:28 | BOWEL_PTH ---
PATIENT: Dalia Mcfarlane LOC: [facility] U#:[id number] AGE/SX: 69/F ROOM: RE01/10/[address]: Kamar Shields MD : 1955 BED: DIS: 01/10/2025 SPEC #: [id number] RECD: 01/10/25 12:47 STATUS: TLAI RESigifredo #: [id number] RAHEL: 01/10/25 09:[address]: Kamar Shields DEPT: Surgical Specimen RECD BY: Vannessa Kimbrough ENTERED: 01/10/25 12:48 SP TYPE: Bowel OTHR DR: Deedee Cruz Tissues: 1 - BIOPSY BOWEL Procedures: GROSS AND MICRO LEVEL 4 Comments: [id number]
[2025-01-10 09:41] VITALS: BP 125/61; PULSE 91; RESP 16; TEMP 35.9; O2SAT 97
[2025-01-10 10:14] VITALS: BP 139/69; PULSE 90; RESP 14; TEMP 36.2; O2SAT 97
--- NOTE | 2025-01-10 10:39 | W.ANESPOSTOP ---
Postoperative Evaluation Date, Time and Location Date Performed: 01/10/25 Time Performed: 09:50 Patient Location: Day Surgery Unit Vital Signs Most Recent Imported Vital Signs: Most Recent Vital Signs Temp Pulse Resp BP Pulse Ox 36.2 C L 90 14 139/69 97 01/10/25 10:14 01/10/25 10:14 01/10/25 10:14 01/10/25 10:14 01/10/25 10:14 Pain Score Most Recent Pain Score: Most Recent Pain Score Pain Level 0 01/10/25 10:14 Assessment Mental Status: Arousable with meaningful communication Airway and Respiratory Function: Patent airway with normal (patient baseline) respiratory exam Cardiovascular Function: Hemodynamically Stable Hydration Status: Adequately Hydrated Nausea & Vomiting: No Nausea or Vomiting Pain: Pt. Denies Any Pain Peripheral Nerve Block: Patient did not receive a nerve block
== END 2025-01-10 10:28 | disposition home or self-care (01) ==
PROVIDERS: PCP Internal Medicine; Visit Provider Surgery
PROC: 0DJD8ZZ Inspection of Lower Intestinal Tract, Via Natural or Artificial Opening Endoscopic (ICD-10-PCS; CPT 45378; principal; 2025-01-10 09:00)
DX: R19.7 Diarrhea, unspecified (principal); R11.0 Nausea; K57.30 Diverticulosis of large intestine without perforation or abscess without bleeding; K52.831 Collagenous colitis
CPT/HCPCS: 45380; 88305; J2003; J2250; J2405; J2704

== ENCOUNTER → 2025-02-24 11:22 | Outpatient (BNVA) | payer MEDICARE, OTHER, SELFPAY | PROVIDERS: PCP Internal Medicine; Referring Provider Internal Medicine; Visit Provider Surgery | DX: K52.831 Collagenous colitis (principal) | CPT/HCPCS: 99214 ==